=== PATIENT | female | born 1970 | race Caucasian/White ===

== ENCOUNTER → 2019-04-14 15:15 | Outpatient (CLI) | payer BC, SELFPAY ==
[2015-02-18 13:51] VITALS: BMI 28.8
[2019-04-14 17:11] LABS: Absolute Lymphocyte Count 3.08 X10^3/uL (0.83-4.51); Absolute Neutrophil Count 6.5 X10^3/uL (2.0-7.7); Basophil# 0.12 X10^3/uL; Basophil% 1.1 % (0-1); Eosinophil# 0.18 X10^3/uL; Eosinophils% 1.7 % (0-5); Hematocrit 42.5 % (37-47); Hemoglobin 13.5 g/dL (12.0-15.0); Lymphocyte # 3.08 X10^3/ul (4.0); Lymphocyte % 28.8 % (19-41); Mean Corp Hgb Conc 31.8 g/dL (32-36); Mean Corpuscular Hgb 29.3 pg (27.0-32.0); Mean Corpuscular Volume 92.2 fL (81-99); Monocyte# 0.75 X10^3/uL; NRBC Flagged by Analyzer 0 % (0-5); Neutrophil # 6.52 X10^3/uL (2.7-7.7); Neutrophil % 60.8 % (47-70); Platelet Count 362 K/mm3 (150-450); RBC Distribution Width CV 14.2 % (11.6-14.6); RBC Distribution Width SD 47.9 fl (35.1-43.9); Red Blood Count 4.61 M/mm3 (4.2-5.4); White Blood Count 10.7 K/mm3 (4.4-11.0)
[2019-04-14 17:14] LABS: AST(SGOT) 12 U/L (15-37); Alanine Aminotransfer ALT/SGPT 16 U/L (13-56); Albumin, Serum 3.4 g/dL (3.2-5.0); Alkaline Phosphatase 82 U/L (45-117); Anion Gap 6 (5-15); BUN 12 mg/dL (7-18); BUN/Creat Ratio 19.3 RATIO (10-20); Calcium,Total 8.9 mg/dL (8.5-10.1); Chloride 107 mmol/L (98-107); Creatinine, Serum 0.62 mg/dL (0.55-1.02); EST Glomerular Filtration Rate 108 mL/min (>60); Est Glom Filt Rate - Afr Amer 131 mL/min (>60); Globulin 3.4 g/dL (2.2-4.2); Glucose 150 mg/dL (74-106); Potassium 3.9 mmol/L (3.5-5.1); Protein, Total 6.8 g/dL (6.4-8.2); Sodium Level 137 mmol/L (136-145); Thyroid Stim Hormone (TSH) 1.68 uIU/mL (0.358-3.74)
== END ==
PROVIDERS: Visit Provider Family Medicine Geriatric Medicine
DX: R53.83 Other fatigue (principal)
CPT/HCPCS: 36415; 80053; 84443; 85025

== ENCOUNTER → 2019-04-15 00:53 | Outpatient (CLI) | payer BC, SELFPAY ==
--- NOTE | 2019-04-15 01:03 | RAD_ITS ---
STUDY: X-RAY - PELVIS AND RIGHT HIP REASON FOR EXAM: Female, 48 years old. Right hip pain TECHNIQUE AP and frog-leg lateral views of the right hip with AP view pelvis. COMPARISON: None. FINDINGS: There is a normal visualized bowel gas pattern. Normal visualized soft tissue structures. Normal bilateral iliac wings, sacroiliac joints and visualized sacrum. Normal bilateral superior and inferior pubic rami. Normal pubic symphysis. Normal bilateral ischial tuberosities. Right hip is in normal alignment without significant degenerative change. There is an obliquely oriented linear lucency through the intratrochanteric region of the right femur which most likely represents an underlying soft tissue shadow, though a nondisplaced fracture could also be considered. The left hip is in normal alignment without significant degenerative change. No left femoral fracture. RAD/HIP, UNI W/ Pelvis 2-3 Views IMPRESSION: Oblique linear lucency through the intertrochanteric region of the right femur, either representing underlying soft tissue shadow versus nondisplaced fracture. CT imaging of the right hip could be obtained for more definitive characterization. Electronically Signed: Jese Ibarra MD at 4:01 EST Tel , Service support ,
--- NOTE | 2019-04-15 01:03 | RAD_ITS ---
STUDY: X-RAY - LUMBAR SPINE REASON FOR EXAM: Female, 48 years old. Right hip pain and sciatica TECHNIQUE: 3 view(s) of the lumbar spine were obtained. COMPARISON: None FINDINGS: Mildly exaggerated lordosis of the lumbar spine. No focal listhesis. Minimal levoscoliosis centered at L3. No vertebral body fracture. No pars defect. Intervertebral disc spaces are preserved. Minimal degenerative change of the facet joints at L4-L5 and L5-S1. No paraspinal soft tissue densities. RAD/Lumbar Spine 2 or 3 Views IMPRESSION: 1. No acute abnormality of the lumbar spine 2. Mild degenerative facet disease at L4-5 and L5-S1. Electronically Signed: Jese Ibarra MD at 2:11 EST Tel , Service support ,
== END ==
LOC: RAD 00:57
PROVIDERS: Family Provider Family Medicine Geriatric Medicine; PCP Family Medicine Geriatric Medicine; Visit Provider Family Medicine Geriatric Medicine
DX: M54.30 Sciatica, unspecified side (principal)
CPT/HCPCS: 72100; 73502

== ENCOUNTER → 2019-05-10 14:02 | Outpatient (CLI) | payer BC, SELFPAY ==
[2015-02-18 13:51] VITALS: BMI 28.8
--- NOTE | 2019-05-10 14:04 | CT_ITS ---
STUDY: CT RIGHT FEMUR/HIP WITHOUT CONTRAST REASON FOR EXAM: Female, 48 years old. Pain, trauma. Evaluate for fracture. RADIATION DOSAGE (If Supplied By Facility): CTDIvol = ( 18.57 ) mGy, DLP = ( 845.99 ) mGycm TECHNIQUE: Transaxial CT imaging of the femur was performed. Sagittal and coronal images were reconstructed. Individualized dose optimization techniques were used for this CT. COMPARISON: None. FINDINGS: Normal visualized proximal femur including femoral head. Mild narrowing of the posterior joint compartment consistent with mild degenerative disease.. Normal right superior and inferior pubic rami. Minimal degenerative disease at the pubic symphysis. Surrounding soft tissues are normal. CT/Extremity Lower without Contra IMPRESSION: Minimal degenerative disease at the posterior right hip otherwise no acute fracture or subluxation seen. Electronically Signed: Trista Nguyễn MD at 23:56 EST , Service support ,
== END ==
PROVIDERS: Family Provider Family Medicine Geriatric Medicine; PCP Family Medicine Geriatric Medicine; Referring Provider Family Medicine Geriatric Medicine; Visit Provider Family Medicine Geriatric Medicine
DX: S72.04 Fracture of base of neck of femur (principal)
CPT/HCPCS: 73700

== ENCOUNTER → 2019-05-11 06:34 | Outpatient (CLI) | payer BC, SELFPAY ==
--- NOTE | 2019-05-11 06:41 | MRI_ITS ---
STUDY: MRI LUMBAR SPINE WITHOUT CONTRAST REASON FOR EXAM: Female, 48 years old. Arthropathy. Low back pain. Right leg pain. TECHNIQUE: Standardized fat and water weighted pulse sequences were obtained in the sagittal and axial planes. COMPARISON: X-ray dated April 15, 2019. FINDINGS: Exaggerated lumbar lordosis. Minimal levoscoliosis. Conus medullaris terminates normally at the L1 level. No acute fracture. No dislocation. No bone destruction. Normal paraspinal muscles. Normal retroperitoneum. Normal aorta. Sacrum intact. T12-L1: Normal endplates. Normal disc height, hydration and morphology. Normal bilateral facet joints. Normal central canal and bilateral lateral recesses. Normal bilateral intervertebral neural foramina. L1-2: Normal endplates. Normal disc height, hydration and morphology. Normal bilateral facet joints. Normal central canal and bilateral lateral recesses. Normal bilateral intervertebral neural foramina. L2-3: Normal endplates. Normal disc height, hydration and morphology. Normal bilateral facet joints. Normal central canal and bilateral lateral recesses. Normal bilateral intervertebral neural foramina. L3-4: Normal endplates. Normal disc height, hydration and morphology. Mild facet arthrosis. Normal central canal and bilateral lateral recesses. Normal bilateral intervertebral neural foramina. L4-5: Normal endplates. Normal disc height, hydration and morphology. Mild facet arthrosis. Normal central canal and bilateral lateral recesses. Normal bilateral intervertebral neural foramina. L5-S1: Normal endplates. Normal disc height, hydration and morphology. Mild facet arthrosis. Normal central canal and bilateral lateral recesses. Normal bilateral intervertebral neural foramina. MRI/Spine Lumbar (Routine) IMPRESSION: No disc herniation or central canal narrowing No significant neural foraminal or lateral recess narrowing Mild facet joint arthrosis with exaggerated lordosis Electronically Signed: Yousuf Johnston DO at 9:34 EST Tel , Service support ,
== END ==
PROVIDERS: Family Provider Family Medicine Geriatric Medicine; PCP Family Medicine Geriatric Medicine; Referring Provider Family Medicine Geriatric Medicine; Visit Provider Family Medicine Geriatric Medicine
DX: M12.88 Other specific arthropathies, not elsewhere classified, other specified site (principal)
CPT/HCPCS: 72148

== ENCOUNTER → 2019-08-26 14:30 | Outpatient (CLI) | payer BC, SELFPAY ==
[2015-02-18 13:51] VITALS: BMI 28.8
[2019-08-26 16:03] LABS: Absolute Lymphocyte Count 3.96 X10^3/uL (0.83-4.51); Absolute Neutrophil Count 11.9 X10^3/uL (2.0-7.7); Basophil# 0.12 X10^3/uL; Basophil% 0.7 % (0-1); Eosinophil# 0.06 X10^3/uL; Eosinophils% 0.3 % (0-5); Hematocrit 43.1 % (37-47); Hemoglobin 14.3 g/dL (12.0-15.0); Lymphocyte # 3.96 X10^3/ul (4.0); Lymphocyte % 22.9 % (19-41); Mean Corp Hgb Conc 33.2 g/dL (32-36); Mean Corpuscular Hgb 30.4 pg (27.0-32.0); Mean Corpuscular Volume 91.7 fL (81-99); Mean Platelet Vol. 10.5 fl (6.2-12.0); Monocyte# 1.08 X10^3/uL; Monocyte% 6.2 % (0-10); NRBC Flagged by Analyzer 0 % (0-5); Neutrophil % 68.7 % (47-70); Platelet Count 317 K/mm3 (150-450); RBC Distribution Width CV 13.5 % (11.6-14.6); White Blood Count 17.3 K/mm3 (4.4-11.0)
[2019-08-26 16:38] LABS: AST(SGOT) 8 U/L (15-37); Alanine Aminotransfer ALT/SGPT 17 U/L (13-56); Albumin, Serum 3.6 g/dL (3.2-5.0); Alkaline Phosphatase 91 U/L (45-117); Anion Gap 7 (5-15); BUN 18 mg/dL (7-18); BUN/Creat Ratio 20.1 RATIO (10-20); Calcium,Total 9.4 mg/dL (8.5-10.1); Chloride 101 mmol/L (98-107); EST Glomerular Filtration Rate 71 mL/min (>60); Est Glom Filt Rate - Afr Amer 86 mL/min (>60); Globulin 3.5 g/dL (2.2-4.2); Glucose 414 mg/dL (74-106); Potassium 4.2 mmol/L (3.5-5.1); Protein, Total 7.1 g/dL (6.4-8.2); Sodium Level 134 mmol/L (136-145); Thyroid Stim Hormone (TSH) 0.88 uIU/mL (0.358-3.74)
== END ==
PROVIDERS: PCP Family Medicine Geriatric Medicine; Visit Provider Family Medicine Geriatric Medicine
DX: E11.65 Type 2 diabetes mellitus with hyperglycemia (principal); R53.83 Other fatigue
CPT/HCPCS: 36415; 80053; 84443; 85025

== ENCOUNTER → 2019-08-31 10:00 | Outpatient (CLI) | payer BC, SELFPAY ==
[2015-02-18 13:51] VITALS: BMI 28.8
--- NOTE | 2019-08-31 10:04 | ART_ITS ---
Reason For Study: PAOD Procedure A bilateral upper extremity continuous wave Doppler with analog waveform analysis and wrist brachial indexes. Left Segmental Pressures Left brachial= 131mmHg. Left ulnar= 153mmHg. Left radial= 155mmHg. The left radial waveforms are triphasic. The left ulnar waveforms are triphasic. Right Segmental Pressures Right brachial= 133mmHg. Right ulnar= 138mmHg. Right radial= 148mmHg. The right radial waveforms are triphasic. The right ulnar waveforms are triphasic. Indices The right wrist-brachial index by the radial artery is 1.11. The right wrist-brachial index by the ulnar artery is 1.04. The left wrist-brachial index by the radial artery is 1.17. The left wrist- brachial index by the ulnar artery is 1.15. Interpretation Summary Triphasic Doppler waveforms are noted at wrist level bilaterally. Wrist-brachial indices are normal bilaterally. There is no evidence of arterial occlusive disease in the upper extremities bilaterally. Ordering Physician: Shashank Tai Referring Physician: Shashank Tai Chi Performed By: Nicolle Willams RVT
--- NOTE | 2019-08-31 10:04 | ART_ITS ---
Reason For Study: PAOD Procedure A bilateral lower extremity continuous wave Doppler with analog waveform analysis and ankle brachial indexes. Left Segmental Pressures Left brachial= 132mmHg. Left posterior tibial artery = 109mmHg. Left dorsalis pedis artery = 99mmHg. The left dorsalis pedis waveforms are biphasic. The left posterior tibial artery waveforms are biphasic. Right Segmental Pressures Right brachial= 132mmHg. Right posterior tibial artery = 108mmHg. Right dorsalis pedis artery = 112mmHg. The right dorsalis pedis waveforms are biphasic. The right posterior tibial artery waveforms are biphasic. Indices The right ankle brachial index by the dorsalis pedis is 0.85. The right ankle brachial index by the posterior tibial artery is 0.82. The left ankle brachial index by the dorsalis pedis is 0.75. The left ankle brachial index by the posterior tibial artery is 0.83. Interpretation Summary Biphasic Doppler waveforms are noted at ankle level bilaterally. Resting ankle-brachial indices are mildly diminished bilaterally. There is evidence of mild arterial occlusive disease in the lower extremities bilaterally. Ordering Physician: Shashank Tai Referring Physician: Shashank Tai Chi Performed By: Nicolle Willams RVT
== END ==
PROVIDERS: PCP Family Medicine Geriatric Medicine; Referring Provider Family Medicine Geriatric Medicine; Visit Provider Family Medicine Geriatric Medicine
DX: I73.9 Peripheral vascular disease, unspecified (principal)
CPT/HCPCS: 93922

== ENCOUNTER 2019-09-03 13:00 | Outpatient (RCR) | payer BC, SELFPAY ==
--- NOTE | 2019-08-06 12:22 | HP.PTEVAL ---
Patient's Visit Information ROGERIO KIRKLAND is a 49 year old F referred to Physical Therapy by Siddharth Pena MD with a diagnosis of LUMBAR SPONDYLOSIS, SACROILITIS, AND MYALGIA. Date of Evaluation: 08/06/19 Physical Therapist: Jovana Mckinney PT, Cert MDT - Visit Plan Frequency: 2-3x /Week Duration: 4-6 Weeks Plan: AQUATIC THERAPY FOR PAIN RELIEF, POSTURE CORRECTION/STRENGTHENING, INSTRUCTION IN APPROPRIATE BODY MECHANICS AND ACTIVITY MODIFICATIONS. DLS STARTING WITH A NEUTRAL SPINE PROGRESSING ROM TOLERATED. LIZ LE ROM, STRETCHING AND STRENGTHENING. HEP INSTRUCTION. - Subjective Findings: Work/Leisure: [employer] WORK FOR [employer]. 3 YEARS. NOT CURRENTLY OFF WORK FOR THIS. Disability: NO. Present symptoms: LIZ LOW BACK AND HIP PAIN. RECENT HISTORY FROM A FEW MONTHS AGO OF SHOOTING PAINS DOWN BOTH LEGS TO CALF. Present since: MAR 2019. Pain Scale: WORST 8/10, LEAST 3/10. Currently: 7/10. Commenced as a result of: NO APPARENT REASON. Symptoms at onset: RIGHT HIP PAIN AND SHOOTING PAIN DOWN LEG. Worse: WALKING, SITTING, LYING DOWN, LIFTING, RUNNING SWEEPER, STANDING TO DO DISHES, COOKING...ANYTHING TO DO WITH STANDING. GETTING IN SHOWER. Better: PAIN MEDICINE, ICY HOT PADS, SLOWING DOWN. Disturbed sleep: YES. Previous history/Previous treatment: H/O HIP PROBLEMS A CHILD. H/O LEG MOBILITY PROBLEMS IN CHILDHOOD. BACK AND LEGS HAVE BEEN FINE IN ADULTHOOD PER PATIENT REPORT BUT HAS BEEN GOING TO A CHIROPRACTOR SINCE CHILDHOOD. Treatment this episode: CHIROPRACTOR, PAIN MGMT - HIP AND BACK INJECTIONS, PRESCRIPTION MEDICATIONS. NO BACK OR HIP SX. PATIENT REPORTS THE INJECTIONS HAVE HELPED SOME. Coughing/sneezing/straining: POSITIVE. Gait: LIMPING ON RIGHT LE. TIME AND DISTANCE LIMITED. NO AD'S. Difficulty initiating urinatin: NO. Accidents: NO. Unexplained weight loss: YES - [employer] IS AWARE OF 22 LB WEIGHT LOSS SINCE MAY. Imaging: LUMBAR AND HIP X-RAYS, CAT SCAN AND MRI PER PATIENT REPORT SHOWING ARTHRITIS IN BACK AND HIPS. STATES DR. CHÁVEZ SAID THE X-RAY SHOWED A RIGHT HIP FX BUT NOT ON CAT SCAN OR MRI. [facility] EMR: Mild degenerative facet disease at L4-5 and L5-S1. Minimal degenerative disease at the posterior right hip otherwise no acute. fracture or subluxation seen. No disc herniation or central canal narrowing. No significant neural foraminal or lateral recess narrowing. Mild facet joint arthrosis with exaggerated lordosis. PMH: NIDDM, ANXIETY, DEPRESSION, H/O NECK PROBLEMS. Recent major surgery: 1993 - 06/03 OF KIDNEY REMOVED FOR INFECTION. OTHER: 08/20/[address] MORE [address]JECTIONS PENDING [address] PENA BUT PATIENT DOES NOT THINK ANY OF THE INJECTIONS HAVE BEEN TANJA'S. - Objective Sitting/Standing Posture: POOR. SCOLIOSIS. Active Correction of posture: WORSE. Other Observations: INDEP SLOW ANTALGIC TYPE GAIT INTO PT WITHOUT ANY AD'S OR LOB. PATIENT IS UNABLE TO TRANSFER FROM SIT TO STAND WITHOUT UE ASSIST. Motor deficit: LIZ LE'S 5/5 WITH MMT'ING EXCEPT RIGHT HIP 4-/5 AND LEFT 4/5. I PROCEEDED CAREFULLY WITH TESTING DUE TO PATIENT BEING APPREHENSIVE. Sensory deficit: LIZ LE LIGHT TOUCH SENSATION INTACT AND SYMMETRICAL WITH TESTING. ROM deficit: LIZ LE'S WFL. Reflexes: 2/3 LIZ LE'S. Dural Signs: POSITIVE LIZ LE'S. Lumbar mvmt loss: flex - MOD. ext - ANTON. R SG - ANTON. L SG - MOD. PATIENT C/O INCREASED BURNING PAIN IN LOW BACK WITH LUMBAR ROM TESTING ALL PLANES. Core strength: POOR. Palpation: PATIENT IS VERY TENDER WITH LIGHT PALPATION OF THE LOWER THORACIC, LUMBAR, SACRAL AND RIGHT HIP REGIONS. TREATMENT: NEUROMUSCULAR REEDUCATION - RETRAINING OF MVMT AND POSTURE FOR SITTING, LYING AND STANDING ACTIVITIES. - Goals Goal 1:: DECREASE C/O LOW BACK AND LIZ LE SX'S. Goal Time Frame: 4-6 Weeks Goal 2:: IMPROVE PERSONAL CARE, LIFITNG, WALKING, SITTING, STANDING, SLEEP, SOCIAL LIFE, TRAVEL, WORK AND HOMEMAKING FUNCTION. Goal Time Frame: 4-6 Weeks Goal 3:: INSTRUCT IN PROPHYLAXIS Goal Time Frame: 4-6 Weeks - Rehabilitation Potential Rehabilitation Potential: Fair - Anticipated Interventions Patient/Client Instruction: Educate patient on: Condition, Plan of Care, Risk Factors, Benefits of Fitness Program For the Purpose of:: To improve self management Therapeutic Exercise to Include: Strength training, Endurance training, Body mechanics, Postural training, Flexibilty training, Neuromotor development, Dynamic Lumbar Stabilization For the Purpose of:: To decrease pain, To improve muscle performance and motor function, To increase tolerance to activity/condition/position, To improve ability of physical actions for home/community/work/leisure TENS: Yes IF ES: Yes Cryotherapy (ice pack, ice massage): Yes Thermo therapy (hot pack): Yes Ultrasound (thermal/non thermal): Yes For the Purpose of:: To decrease pain, To decrease swelling/inflammation, To increase ROM, To improve nutrient delivery to tissue Thank you for the opportunity to evaluate your patient. For Medicare and Medicare HMO plans, please review the plan of care and approve it. It will need to be FAXED BACK to us at [phone] for Medicare purposes. For Medicare only, by signing this I certify the plan of care. Please let me know if there are questions or concerns regarding this plan of care. Physician Signature: Date:
--- NOTE | 2020-02-24 15:16 | HP.PT.NRP ---
ROGERIO KIRKLAND was seen in my office for initial evaluation on 08/06/19. The following Plan of Care was established for this patient: Initial Frequency: 2-3x /Week Initial Duration: 4-6 Weeks Patient/Client Instruction: Educate patient on: Condition, Plan of Care, Risk Factors, Benefits of Fitness Program For the Purpose of:: To improve self management Therapeutic Exercise to Include: Strength training, Endurance training, Body mechanics, Postural training, Flexibilty training, Neuromotor development, Dynamic Lumbar Stabilization For the Purpose of:: To decrease pain, To improve muscle performance and motor function, To increase tolerance to activity/condition/position, To improve ability of physical actions for home/community/work/leisure TENS: Yes IF ES: Yes Cryotherapy (ice pack, ice massage): Yes Thermo therapy (hot pack): Yes Ultrasound (thermal/non thermal): Yes For the Purpose of:: To decrease pain, To decrease swelling/inflammation, To increase ROM, To improve nutrient delivery to tissue This patient was last seen in our office . Pertinent comments regarding their Physical therapy will appear below: This patient has not returned to Physical Therapy and is appropriate to return to MD for further follow-up as needed. At this point I will be discontinuing this patient from physical therapy. I would be happy to see this patient again in the future if found appropriate by the physician. Thank you! Jovana Mckinney PT, Cert MDT
== END 2019-09-03 19:00 | disposition home or self-care (01) ==
LOC: PT 13:00
PROVIDERS: PCP Family Medicine Geriatric Medicine; Referring Provider Anesthesiology; Visit Provider Anesthesiology
DX: M47.816 Spondylosis without myelopathy or radiculopathy, lumbar region (principal); M46.1 Sacroiliitis, not elsewhere classified; M79.10 Myalgia, unspecified site
CPT/HCPCS: 97112; 97113; 97162

== ENCOUNTER → 2019-09-06 14:11 | Outpatient (CLI) | payer BC, SELFPAY ==
--- NOTE | 2019-09-06 14:14 | RAD_ITS ---
STUDY: X-RAY - ABDOMEN/PELVIS REASON FOR EXAM: Female, 49 years old. Diarrhea x several days TECHNIQUE: AP supine and upright views of the abdomen and pelvis. COMPARISON: None. FINDINGS: Normal visualized lung bases. There is an unremarkable bowel gas pattern. There is no demonstrated free abdominal air. There is evidence of prior cholecystectomy. Normal soft tissue structures. Normal visualized osseous structures. RAD/Abd Inc Decub and/or Erect IMPRESSION: Normal x-ray examination of the abdomen and pelvis. Electronically Signed: Bandar Garcia, at 16:07 EDT , Service support ,
== END ==
PROVIDERS: PCP Family Medicine Geriatric Medicine; Referring Provider Family Medicine Geriatric Medicine; Visit Provider Family Medicine Geriatric Medicine
DX: R19.7 Diarrhea, unspecified (principal)
CPT/HCPCS: 74019

== ENCOUNTER → 2019-11-19 11:04 | Outpatient (CLI) | payer BC, SELFPAY ==
[2015-02-18 13:51] VITALS: BMI 28.8
[2019-11-19 12:22] LABS: Absolute Lymphocyte Count 3.49 X10^3/uL (0.83-4.51); Absolute Neutrophil Count 6.3 X10^3/uL (2.0-7.7); Basophil# 0.08 X10^3/uL; Basophil% 0.7 % (0-1); Eosinophil# 0.09 X10^3/uL; Eosinophils% 0.8 % (0-5); Hematocrit 45.2 % (37-47); Lymphocyte # 3.49 X10^3/ul (4.0); Lymphocyte % 32.2 % (19-41); Mean Corp Hgb Conc 33.2 g/dL (32-36); Mean Corpuscular Hgb 31.3 pg (27.0-32.0); Mean Corpuscular Volume 94.4 fL (81-99); Monocyte# 0.81 X10^3/uL; Monocyte% 7.5 % (0-10); NRBC Flagged by Analyzer 0 % (0-5); Neutrophil # 6.28 X10^3/uL (2.7-7.7); Neutrophil % 58.1 % (47-70); Platelet Count 374 K/mm3 (150-450); RBC Distribution Width CV 13.2 % (11.6-14.6); RBC Distribution Width SD 45.5 fl (35.1-43.9); Red Blood Count 4.79 M/mm3 (4.2-5.4); White Blood Count 10.8 K/mm3 (4.4-11.0)
[2019-11-19 13:26] LABS: AST(SGOT) 7 U/L (15-37); Alanine Aminotransfer ALT/SGPT 20 U/L (13-56); Albumin, Serum 3.5 g/dL (3.2-5.0); Alkaline Phosphatase 82 U/L (45-117); Anion Gap 7 (5-15); BUN 15 mg/dL (7-18); BUN/Creat Ratio 20.4 RATIO (10-20); Calcium,Total 9.7 mg/dL (8.5-10.1); Chloride 97 mmol/L (98-107); Creatinine, Serum 0.74 mg/dL (0.55-1.02); EST Glomerular Filtration Rate 89 mL/min (>60); Est Glom Filt Rate - Afr Amer 108 mL/min (>60); Globulin 3.6 g/dL (2.2-4.2); Glucose 321 mg/dL (74-106); Potassium 3.8 mmol/L (3.5-5.1); Protein, Total 7.1 g/dL (6.4-8.2); Sodium Level 133 mmol/L (136-145); Thyroid Stim Hormone (TSH) 1.14 uIU/mL (0.358-3.74)
== END ==
PROVIDERS: PCP Family Medicine Geriatric Medicine; Visit Provider Family Medicine Geriatric Medicine
DX: E11.65 Type 2 diabetes mellitus with hyperglycemia (principal); R53.83 Other fatigue
CPT/HCPCS: 36415; 80053; 84443; 85025

== ENCOUNTER → 2019-11-23 11:41 | Outpatient (CLI) | payer BC, SELFPAY ==
[2015-02-18 13:51] VITALS: BMI 28.8
--- NOTE | 2019-11-23 12:20 | RAD_ITS ---
STUDY: X-RAY - ABDOMEN/PELVIS REASON FOR EXAM: Female, 49 years old. DIARRHEA, PARTIAL LEFT NEPHRECTOMY TECHNIQUE: 3 AP views COMPARISON: 09/06/2019 FINDINGS: Normal visualized lung bases. Evidence of previous cholecystectomy There is an unremarkable bowel gas pattern. There is no demonstrated free abdominal air. The visualized liver, spleen and kidneys are grossly normal in size and morphology. Normal soft tissue structures. Normal visualized osseous structures. RAD/Abd Inc Decub and/or Erect IMPRESSION: Normal x-ray examination of the abdomen and pelvis. Electronically Signed: Parminder Esquivel MD at 12:37 EDT , Service support ,
[2019-11-23 12:33] LABS: Basophil# 0.08 X10^3/uL; Basophil% 0.7 % (0-1); Eosinophil# 0.09 X10^3/uL; Eosinophils% 0.8 % (0-5); Mean Corp Hgb Conc 32.6 g/dL (32-36); Mean Corpuscular Volume 95.3 fL (81-99); Mean Platelet Vol. 9.9 fl (6.2-12.0); Monocyte# 1.12 X10^3/uL; Monocyte% 9.3 % (0-10); NRBC Flagged by Analyzer 0 % (0-5); Neutrophil # 7.04 X10^3/uL (2.7-7.7); Neutrophil % 58.7 % (47-70); Platelet Count 333 K/mm3 (150-450); RBC Distribution Width SD 45.4 fl (35.1-43.9); Red Blood Count 4.51 M/mm3 (4.2-5.4)
[2019-11-23 12:50] LABS: Anion Gap 6 (5-15); BUN 12 mg/dL (7-18); BUN/Creat Ratio 18.4 RATIO (10-20); Calcium,Total 8.6 mg/dL (8.5-10.1); Chloride 101 mmol/L (98-107); Creatinine, Serum 0.65 mg/dL (0.55-1.02); EST Glomerular Filtration Rate 103 mL/min (>60); Est Glom Filt Rate - Afr Amer 124 mL/min (>60); Glucose 211 mg/dL (74-106); Potassium 3.7 mmol/L (3.5-5.1); Sodium Level 136 mmol/L (136-145)
== END ==
PROVIDERS: PCP Family Medicine Geriatric Medicine; Referring Provider Family Medicine Geriatric Medicine; Visit Provider Family Medicine Geriatric Medicine
DX: N39.0 Urinary tract infection, site not specified (principal); R11.2 Nausea with vomiting, unspecified
CPT/HCPCS: 36415; 74019; 80048; 85025; 87086; 87088; 87186

== ENCOUNTER 2019-11-26 19:19 | Observation (INO) | payer BC, SELFPAY ==
[2019-11-26] VITALS (14 sets, daily range): BP systolic 129–171; BP diastolic 59–93; PULSE 62–90; RESP 14–20; TEMP 36.7–36.9; O2SAT 94–99; BMI 26.7; BMI 26.0; BMI 25.3; BMI 25.4
--- NOTE | 2019-11-26 19:27 | EKG12_ITS ---
Test Reason : STROKE Blood Pressure : / mmHG Vent. Rate : 069 BPM Atrial Rate : 069 BPM P-R Int : 178 ms QRS Dur : 076 ms QT Int : 428 ms P-R-T Axes : 017 -10 026 degrees QTc Int : 458 ms Normal sinus rhythm Normal ECG Confirmed by SAUL CRUZ, SONIA ([id number]), editor producer TIFFANY ROMEO ([id number]) on 11/30/2019 10:53:45 AM Referred By: ED PHYSICIAN Confirmed By:SONIA HUGHES MD
--- NOTE | 2019-11-26 19:28 | CT_ITS ---
STUDY: CTA HEAD AND NECK WITH CONTRAST REASON FOR EXAM: Female, 49 years old. STROKE RADIATION DOSAGE (If Supplied By Facility): CTDIvol = ( 27.73 ) mGy, DLP = ( 1370.53 ) mGycm TECHNIQUE: CT angiography was performed with a multi-detector CT scanner. Data acquisition was obtained from the skull base through the vertex following intravenous administration of IV 100 ML ISOVUE 370. MIP images were reconstructed from the axial data set. Post-processing of the angiographic images was performed, with multiplanar reformation and 3D reconstruction. Individualized dose optimization techniques were used for this CT. COMPARISON: Head CT dated November 26, 2019. MRI of the brain dated April 12, 2014 FINDINGS: Normal bilateral petrous carotid arteries. Normal right cavernous carotid artery with a normal supraclinoid bifurcation. Normal left cavernous carotid artery with a normal supraclinoid bifurcation. Normal right A1 segments of the anterior cerebral artery. Normal left A1 segments of the anterior cerebral artery. There is non-visualization of the anterior communicating artery (ACOM). Normal bilateral A2 segments of the anterior cerebral arteries. Normal right M1 and M2 segments of the middle cerebral arteries, with a normal M1 bifurcation. Normal left M1 and M2 segments of the middle cerebral arteries, with a normal M1 bifurcation. Normal right posterior communicating artery (PCOM). Normal left posterior communicating artery (PCOM). Normal bilateral vertebral arteries. Normal basilar artery with a normal basilar bifurcation. The visualized bilateral superior cerebellar (SCA) arteries are normal. Normal bilateral P1, P2 and visualized P3 segments of the posterior cerebral arteries. There is no demonstrated aneurysm of the [place] of [place]. There is no demonstrated abnormality of the visualized brain. AORTIC ARCH: Normal visualized aortic arch. Normal origins of the brachiocephalic, left common carotid, and left subclavian arteries. RIGHT CAROTID ARTERIES: Normal right common carotid artery (CCA). Normal right common carotid bulb. Normal origin of the right internal carotid (ICA) artery without a hemodynamically significant stenosis. Normal visualized cervical portion of the right internal carotid artery. Normal origin of the right external carotid artery (ECA). LEFT CAROTID ARTERIES: Normal left common carotid artery (CCA). Normal left common carotid bulb. Normal origin of the left internal carotid (ICA) artery without a hemodynamically significant stenosis. Normal visualized cervical portion of the left internal carotid artery. Normal origin of the left external carotid artery (ECA). VERTEBRAL ARTERIES: Normal bilateral vertebral arteries. CT/CTA Head AND Neck W/ Contrast IMPRESSION: Normal CTA Head and neck with contrast. N.B. : The above information has been verbally conveyed by Rico Loving MD to Todd Sage on 11/26/2019 20:04:27 (ET). Electronically Signed: iRco Loving MD at 20:07 EDT , Service support ,
[2019-11-26 19:41] LABS: Absolute Lymphocyte Count 3.91 X10^3/uL (0.83-4.51); Absolute Neutrophil Count 6.5 X10^3/uL (2.0-7.7); Basophil# 0.09 X10^3/uL; Basophil% 0.8 % (0-1); Eosinophil# 0.07 X10^3/uL; Eosinophils% 0.6 % (0-5); Hematocrit 46.1 % (37-47); Hemoglobin 15.3 g/dL (12.0-15.0); Lymphocyte # 3.91 X10^3/ul (4.0); Lymphocyte % 34.2 % (19-41); Mean Corp Hgb Conc 33.2 g/dL (32-36); Mean Corpuscular Hgb 31.2 pg (27.0-32.0); Mean Corpuscular Volume 93.9 fL (81-99); Mean Platelet Vol. 10.1 fl (6.2-12.0); Monocyte# 0.85 X10^3/uL; Monocyte% 7.4 % (0-10); NRBC Flagged by Analyzer 0 % (0-5); Neutrophil # 6.45 X10^3/uL (2.7-7.7); Neutrophil % 56.5 % (47-70); Platelet Count 342 K/mm3 (150-450); RBC Distribution Width CV 13.1 % (11.6-14.6); RBC Distribution Width SD 44.9 fl (35.1-43.9); Red Blood Count 4.91 M/mm3 (4.2-5.4); White Blood Count 11.4 K/mm3 (4.4-11.0)
--- NOTE | 2019-11-26 19:41 | ED.RN ---
[address] scan at this time. both ct machines full with critical patients at this time. 1929 [facility] called 193 report given to odessa PINON
--- NOTE | 2019-11-26 19:45 | RAD_ITS ---
STUDY: X-RAY CHEST REASON FOR EXAM: Female, 49 years old. onset of headache, blurred vision, facial tingling, difficulty breathing. TECHNIQUE: Single AP portable view of the chest. COMPARISON: None. FINDINGS: The lungs are clear and expanded. There is no demonstrated pleural abnormality. Normal size heart. Normal mediastinum and chaparro. Normal visualized pulmonary arteries. There is atherosclerotic calcification of the aortic arch with tortuosity. Normal visualized thoracic spine. Normal visualized ribs, clavicles, and shoulders. There is no demonstrated abnormality of the visualized soft tissue structures of the upper abdomen. RAD/Chest 1 View IMPRESSION: Normal x-ray examination of the chest. Electronically Signed: Rico Loving MD at 20:48 EDT , Service support ,
[2019-11-26 19:52] LABS: Partial Thromboplast Time 26.6 Seconds (24.1-36.2); Prothrombin Time (Protime)PT. 12.4 SECONDS (11.7-14.9)
[2019-11-26 19:57] LABS: Anion Gap 8 (5-15); BUN 11 mg/dL (7-18); BUN/Creat Ratio 17.1 RATIO (10-20); Calcium,Total 10.1 mg/dL (8.5-10.1); Chloride 103 mmol/L (98-107); Creatinine, Serum 0.64 mg/dL (0.55-1.02); EST Glomerular Filtration Rate 104 mL/min (>60); Est Glom Filt Rate - Afr Amer 126 mL/min (>60); Glucose 144 mg/dL (74-106); Potassium 3.6 mmol/L (3.5-5.1); Sodium Level 139 mmol/L (136-145)
--- NOTE | 2019-11-26 20:04 | ED.RN ---
pt returned from CT 1949 and [facility] called, but Robot being used on a 2nd stroke alert currently. Cassie from [facility] states she will call back as soon as Robot and Neurologist available.
--- NOTE | 2019-11-26 20:33 | CM.ED ---
SOCIAL WORK Responded to Stroke Alert. Met with patient and son in room. Introduced role and reason for referral. Patient states was at work when staff noticed patient with blank stare. Patient states they said I told them my co-worker was moving around in circles with her hands in the air. Active listening and support provided. Work up being completed. This worker to remain available for needs. Carly Puentes, [employer], COMPOSITE MECHANIC
--- NOTE | 2019-11-26 21:29 | ED.DCSUM_ITS ---
- ER Visit Summary Date of Service: 11/26/19 Chief Complaint: Possible stroke History of Present Illness: The patient is a 49 F who presents with possible stroke that began today while she was at work. Patient states her symptoms started approximately 90 minutes prior to arrival. Patient states she was at work and she was looking at another person across the room and she felt like that other person was spinning. Patient denies any other spinning sensations. Patient states she felt like the left side of her face was weak and felt different. Patient also admits to some paresthesias in her left arm. Patient denies any weakness. Patient denies any difficulty swallowing or difficulty talking. Patient denies any visual deficits. Physical Examination: Vital signs are stable except for mildly elevated blood pressure of 160/68. Patient is afebrile. Patient is in no acute distress. Pupils are equal, round, and reactive to light bilaterally. Extraocular muscles are intact. There are no visual field deficits noted. Cranial nerves II through XII are intact. There is slight decrease sensation on the left side of her face and left upper extremity. There are no sensory deficits in the lower extremity. Strength is 5/5 bilaterally in the upper and lower extremities. Patient had mild ataxia with [id number] testing but [id number] testing was intact. NIH stroke scale was 2, 1 for the sensory deficit and 1 for the mild ataxia. Heart was regular rate and rhythm. Lungs are clear and equal bilaterally. Abdomen is soft and nontender. Oral mucosa is pink and moist. Oropharynx is clear. Airway is patent. Test Results: EKG showed normal sinus rhythm with a rate of 69. There is no acute ST or T wave changes. CT scan of the brain and CTA of the head and neck were obtained. These were normal. These were interpreted by the radiologist and reviewed by myself. Portable chest x-ray was obtained. There is no acute cardiopulmonary process. This was interpreted by the radiologist and reviewed by myself. CBC showed a slight leukocytosis of 11.4. Basic metabolic profile was within normal limits. PT with INR and PTT were within normal limits. Troponin was normal. Emergency Department Course and Treatment: Patient had very minimal stroke symptoms. Stroke neurologist from [facility] was able to evaluate the patient and does not feel the patient meets criteria for TPA due to the mild symptoms. They recommended admission and further stroke work-up. Patient is agreeable with this. Case was discussed with the hospitalist. Disposition: Admit to hospital Impression: 1. Stroke Critical care time: 30 minutes. This was time spent obtaining history, performing physical examination, discussion with consultants, discussion with paramedics, interpreting test results, and making disposition. This note was generated with [employer] dictation software. It may contain incorrect words, spelling, and punctuation that were not noted in review of the chart prior to signing ED Disposition - Plan for ED Patient: Disposition: Acute Care Hospital [facility] Diagnosis: Stroke Referrals: Shashank Tai Chi, MD [Primary Care Provider] -
--- NOTE | 2019-11-26 21:40 | HP.PCM_ITS ---
Problem List (1) Stroke Status: Acute History of Present Illness Date of Admission: 11/26/19 Chief Complaint: Paresthesia. The patient is a 49 year old F with a significant history of diabetes mellitus; and chronic pain who presents emergency department with paresthesia. Patient had numbness of the left face and left arm. Her symptoms started while at work; about 90 minutes prior to presentation. She had a blank stare. Later on she noticed a girl at a job apparently spinning ([employer]). 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 For that she had blurry vision. At the time of examination she reports resolution of all the above symptoms; except that the numbness on her face had reduced but it had not completely resolved. Her left arm numbness had resolved. Emergency Department doctor reported that on his examination patient had a change in sensation of left face and also difficulty with [id number] test. Her NIH at emergency department was scored as a 2: 1 for paresthesia and, 1 for dysmetria with [id number] test. TPA was not given because of low NIH score. Past Medical History Medical History: Medical History (Last Updated 11/26/19 @ 22:[address] Deven Valera MD) Diabetes mellitus E11.9 Allergies Penicillins [PCN] Allergy (Verified 02/18/15 13:52) Hives Home Medications: Ambulatory Orders Medication Instructions Recorded Escitalopram Oxalate [Lexapro] 20 mg PO DAILY 02/28/14 Metformin [Metformin HCl] 1,000 mg PO BID 02/28/14 Atorvastatin Calcium [Lipitor] 40 mg PO QHS 11/26/19 Celecoxib [Celebrex] 200 mg PO DAILY 11/26/19 Ciprofloxacin [Cipro] 500 mg PO BID 11/26/19 Gabapentin [Neurontin] 100 mg PO TID 11/26/19 Glimepiride [Amaryl] 4 mg PO DAILY 11/26/19 Methocarbamol [Robaxin] 500 mg PO TID 11/26/19 Pioglitazone [Actos] 30 mg PO DAILY 11/26/19 busPIRone [Buspar] 15 mg PO BID 11/26/19 traMADol [Ultram (G)] 50 mg PO Q6H PRN PRN 11/26/19 Surgical History: cholecystectomy, - - Tubal ligation; surgery kidney stone and kidney infection. Smoking Status: Former smoker Alcohol: None - *Family History Maternal History Items: Cancer - Breast, Diabetes, Heart Disease Paternal History Items: Cancer - Breast and colon, Diabetes, Heart Disease Review of Systems Constitutional: Denies: Chills, Fever, Weight Change HEENT: Denies: Head Aches, Sinus Congestion, Sinus Drainage Cardiovascular: Denies: Chest Pain, Palpitations Respiratory: Denies: Cough, Shortness of breath at rest, Sputum production Gastrointestinal: Denies: Abdominal Pain, Nausea, Vomiting Genitourinary: Reports: Frequency. Denies: Dysuria Musculoskeletal: Denies: Joint Pain, Joint Tenderness Skin: Denies: Rash, Wounds Neurological: Reports: Blurred vision, Focal weakness, Numbness. Denies: Tingling Psychiatric: Denies: Anxiety, Depression, Homicidal Ideations, Suicidal Ideations Hematologic/ Lymphatic: Denies: Easy Bruising, Easy Bleeding VTE Information - Inpt Only VTE Present on Admission: No VTE Mechan Device Prophylaxis: SCD's VTE Pharm Prophylaxis ordered?: No Patient Problems: Active and Suspected Problems Stroke (Acute) - Physical Exam Vitals/I&O's: Vital Signs Temp Pulse Resp BP Pulse Ox 98.5 F 85 15 158/87 H 99 11/26/19 19:20 11/26/19 21:00 11/26/19 21:00 11/26/19 21:00 11/26/19 21:00 Oxygen Delivery Method Room Air Weight: 75.523 kg Body Mass Index (BMI) 26.0 Finger Stick Blood Glucose 134 General: Alert, Oriented x3, Cooperative HEENT: Atraumatic, PERRLA, EOMI, Normocephalic Neck: Supple, No JVD, Negative Carotid Bruits Lungs: Clear to auscultation, Normal air movement, No rhonchi, No wheeze, No rales Cardiovascular: Regular rate, Normal S1, Normal S2, No murmurs Abdomen: Bowel Sounds Present, Soft, Non Tender Extremities: No edema, Capillary Refill Less than 3 Seconds Skin: No rashes, No breakdown Musculoskeletal: No Tenderness to Palpation of Joints or Extremities Neurological: Cranial nerves II-XII grossly intact, - - Strength in left upper extremity 3 out of 5. Strength in all extremities 5 out of 5. Sensation changes in left face. Psych/Mental Status: Normal Affect, Appropriate Laboratory Results 11/26/19 19:06: WBC 11.4 H, RBC 4.91, Hgb 15.3 H, Hct 46.1, MCV 93.9, MCH 31.2, MCHC 33.2, RDW Std Deviation 44.9 H, RDW Coeff of Edvin 13.1, Plt Count 342, MPV 10.1, Immature Gran % (Auto) 0.500, Neut % (Auto) 56.5, Lymph % (Auto) 34.2, Dillon % (Auto) 7.4, Eos % (Auto) 0.6, Baso % (Auto) 0.8, Absolute Neuts (auto) 6.5, Absolute Lymphs (auto) 3.91, Nucleated RBC % 0 11/26/19 19:06: PT 12.4, INR 1.0, APTT 26.6 11/26/19 19:06: Sodium 139, Potassium 3.6, Chloride 103, Carbon Dioxide 28.0, Anion Gap 8, BUN 11, Creatinine 0.64, Estim Creat Clear Calc 103.40, Est GFR (MDRD) Af Amer 126, Est GFR (MDRD) Non-Af 104, BUN/Creatinine Ratio 17.1, Glucose 144 H, Calcium 10.1, Troponin I < 0.015 Current Medications Labetalol HCl (Trandate) 20 mg IV X1 PRN PRN Reason: BLOOD PRESSURE Assessment/Plan All Active Problems Stroke (Acute) The patient is a 49 year old F with a significant history of diabetes mellitus; and chronic pain who presents emergency department with paresthesia; left facial droop; blurry vision; vertigo and a weakness of her left arm. Strokelike symptoms Serial NINDS NIH Scale. tPA was not given since patient and NIH was low. CTA head and neck was unremarkable. -Check Hba1c, Lipid level Physical therapy, occupational therapy and speech therapy to work with patient. N.p.o. until bedside swallow eval. Daily aspirin. On home Lipitor 40 mg nightly. Escalate to Lipitor 80 mg nightly. Check CMP in a.m. Permissive hypertension. Control blood pressure with labetalol for systolic blood pressure of more than 220 or diastolic blood pressure of more than 120. 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 The drug screen per neurologist recommendation. Acute UTI. Reportedly patient was started on ciprofloxacin on the same day of presentation. Reportedly he followed up with his PCP because of diabetes. Because of increased urinary frequency without burning urination her PCP ordered a urinary test and thereafter patient was called over the phone and was started on ciprofloxacin. Ciprofloxacin continued. Diabetes mellitus On presentation blood glucose was not within goal Amaryl and Actos continued. Hold metformin since it is too early in her admission. Accu-Chek QA [facility] with correction scale insulin. 1,800 calorie restricted diet ordered. Chronic pain Celebrex continued Neurontin continued Methocarbamol continued PRN tramadol continue Patient sees pain management. Depression/anxiety Lexapro continued Buspirone continued. DVT prophylaxis SCD OBSV E&M: [id number] Initial observation care L3
--- NOTE | 2019-11-26 23:11 | ECHOD_ITS ---
Reason For Study: TIA/CVA Procedure This was a 2D Doppler, Color Flow transthoracic echocardiogram. Contrast injection was performed. Exam performed portable in patient room. Left Ventricle Normal LV size. Left ventricular systolic function is normal. The estimated ejection fraction is 60 %. Diastolic function is indeterminate. No regional wall motion abnormalities noted. Right Ventricle Normal RV size. Normal systolic function. Atria Normal left atrium. Normal right atrium. No doppler evidence for ASD. Bubble contrast study negative for right to left interatrial shunt. Mitral Valve There is no mitral annular calcification. Normal mitral valve. Trivial mitral valve insufficiency. Tricuspid Valve Normal tricuspid valve. Trivial tricuspid valve insufficiency. Aortic Valve Trisinus/trileaflet aortic valve. Normal aortic valve. Pulmonic Valve The pulmonic valve is not well visualized. Great Vessels The aortic root is not well visualized. Pericardium/Pleural No pericardial effusion. Medication Performed a rapid injection of agitated mix of 9 cc saline and 1cc air to assess for atrial septal defect. MMode/2D Measurements & Calculations LVIDd: 4.2 cm IVSd: 1.2 cm LA dimension: 3.4 cm LVIDs: 2.8 cm LVPWd: 0.81 cm RVDd: 2.9 cm FS: 32.4 % LAV(MOD-bp): 41.7 ml LA A4 area: 15.1 cm2 RA A4 area: 11.8 cm2 LAV(MOD-bp) Indexed: 22.5 ml/m2 LAV(MOD-sp2): 41.4 ml LAV(MOD-sp4): 40.9 ml Time Measurements MV dec time: 0.18 sec Doppler Measurements & Calculations MV E max joey: 83.0 cm/sec Lat Peak E' Joey: 13.2 cm/sec Med Peak E' Joey: 7.0 cm/sec MV A max joey: 83.0 cm/sec E/E' lat: 6.3 E/E' med: 11.8 MV E/A: 1.0 MV V2 max: 92.1 cm/sec MV P1/2t max joey: 91.3 cm/sec Ao V2 max: 110.9 cm/sec MV max P.4 mmHg MV P1/2t: 64.1 msec Ao max P.9 mmHg MV V2 mean: 46.5 cm/sec MV dec slope: 417.3 cm/sec2 MV mean P.1 mmHg MV V2 VTI: 26.3 cm MVA(P1/2t): 3.4 cm2 LV V1 max: 95.4 cm/sec PA V2 max: 93.4 cm/sec LV V1 max P.6 mmHg Interpretation Summary Left ventricular systolic function is normal. The estimated ejection fraction is 60 %. Trivial mitral valve insufficiency. Trivial tricuspid valve insufficiency. Diastolic function is indeterminate. Bubble contrast study negative for right to left interatrial shunt. Ordering Physician: Deven Valera Referring Physician: Shashank Tai Chi Performed By: Tyler Austin RCS
--- NOTE | 2019-11-26 23:36 | NURSING ---
Pt unsure of date of PNA shot.
[2019-11-27] VITALS (11 sets, daily range): BP systolic 120–136; BP diastolic 61–76; PULSE 62–83; RESP 13–17; TEMP 36.5–36.9; O2SAT 94–99; BMI 25.3
[2019-11-27] MEDS: Ciprofloxacin 500 MG Tablet PO ×3 (00:06→21:21)
[2019-11-27] MEDS: Atorvastatin Calcium 80 MG Tablet PO ×2 (00:06→21:21)
[2019-11-27 00:10] LABS: Hemoglobin A1c 11.4 % (3.8-5.6)
[2019-11-27] MEDS: Gabapentin 100 MG Capsule PO ×3 (06:41→21:21)
[2019-11-27] MEDS: Methocarbamol 500 MG Tablet PO ×3 (06:41→21:21)
[2019-11-27 06:54] LABS: Absolute Lymphocyte Count 4.58 X10^3/uL (0.83-4.51); Absolute Neutrophil Count 5.5 X10^3/uL (2.0-7.7); Basophil% 0.9 % (0-1); Eosinophil# 0.17 X10^3/uL; Eosinophils% 1.5 % (0-5); Hematocrit 41.7 % (37-47); Hemoglobin 13.6 g/dL (12.0-15.0); Lymphocyte # 4.58 X10^3/ul (4.0); Mean Corp Hgb Conc 32.6 g/dL (32-36); Mean Corpuscular Hgb 31.3 pg (27.0-32.0); Mean Corpuscular Volume 96.1 fL (81-99); Mean Platelet Vol. 10.2 fl (6.2-12.0); Monocyte# 0.78 X10^3/uL; NRBC Flagged by Analyzer 0 % (0-5); Neutrophil # 5.49 X10^3/uL (2.7-7.7); Neutrophil % 49.2 % (47-70); Platelet Count 295 K/mm3 (150-450); RBC Distribution Width SD 46.2 fl (35.1-43.9); Red Blood Count 4.34 M/mm3 (4.2-5.4); White Blood Count 11.2 K/mm3 (4.4-11.0)
[2019-11-27 07:09] LABS: AST(SGOT) 14 U/L (15-37); Alanine Aminotransfer ALT/SGPT 19 U/L (13-56); Albumin, Serum 3.2 g/dL (3.2-5.0); Alkaline Phosphatase 66 U/L (45-117); Anion Gap 8 (5-15); BUN 10 mg/dL (7-18); BUN/Creat Ratio 17.9 RATIO (10-20); Calcium,Total 9.2 mg/dL (8.5-10.1); Chloride 105 mmol/L (98-107); Cholesterol 86 mg/dL (200); Creatinine, Serum 0.56 mg/dL (0.55-1.02); EST Glomerular Filtration Rate 122 mL/min (>60); Est Glom Filt Rate - Afr Amer 148 mL/min (>60); Estimated Creatinine Clearance 118.17 ml/min; Globulin 3.2 g/dL (2.2-4.2); Glucose 132 mg/dL (74-106); High Density Lipoprotein 35 mg/dL; Potassium 3.6 mmol/L (3.5-5.1); Protein, Total 6.4 g/dL (6.4-8.2); Sodium Level 138 mmol/L (136-145); Triglycerides 178 mg/dL; Very Low Density Lipoprotein 36 mg/dL (5-40)
--- NOTE | 2019-11-27 07:30 | MRI_ITS ---
STUDY: MRI BRAIN WITHOUT CONTRAST REASON FOR EXAM: Female, 49 years old. CVA, numbness left side, vision change TECHNIQUE: Standardized multiplanar fat and water weighted pulse sequences were obtained. COMPARISON: 11/26/2019 CT of the head FINDINGS: Normal size of the ventricles and extra-axial spaces for the patient''s age. Normal white matter tracts of the supratentorial brain. Normal bilateral basal ganglia. Normal thalami. There is no extra-axial fluid accumulation. Normal flow voids within the major intracranial circulation suggesting patency by spin echo criteria. Normal sella turcica, pituitary gland, infundibular stalk, optic chiasm and hypothalamus. Normal tectal plate and pineal gland. Normal midbrain, pino and medulla. Normal cerebellum. MRI/Brain without Contrast IMPRESSION: Unremarkable unenhanced MRI of the brain. Electronically Signed: Saturnino Soler MD at 15:09 EDT Tel , Service support ,
[2019-11-27] MEDS: busPIRone 15 MG TABLET PO ×2 (09:27→21:21)
[2019-11-27] MEDS: Escitalopram Oxalate 20 MG Tablet PO ×2 (09:27→21:20)
[2019-11-27] MEDS: Aspirin 81 MG TAB.CHEW PO (09:27)
[2019-11-27] MEDS: Glimepiride 4 MG Tablet PO (09:27)
[2019-11-27] MEDS: Enoxaparin 40 MG/0.4 ML Syringe SC ×2 (09:31→21:20)
[2019-11-27] MEDS: Insulin Lispro 100 UNIT/ML INSULN.PEN SC ×3 (12:07→21:19)
[2019-11-27 12:16] LABS: Bedside Glucose 165 mg/dL (70-110)
--- NOTE | 2019-11-27 13:06 | CASEMGMT ---
RN TEQUILA Assessment Note Intro role of CM to patient in room. Pt states she has generally been independent at home and has not required assistance. She works and plans to return home on dc. Pt/OT notes reviewed with patient and recommendation for further therapy. Pt stated it's too soon to tell what I'll need, I might get better. Discussed Home PT/OT vs Outpt as pt may not be home bound. PT did not recommend further therapy and pt completed OT tasks were independent or contact guard. Again pt did wish to wait. List of [facility] agencies were given and KATHRIN MANDEL let pt knowif Home therapy is needed, could be arranged from home on Friday. Presentation: paresthesia, numbness of L face and L arm Diagnosis: stroke like symptoms PCP: Dr. Tai Insurance: [facility] Pharmacy: [facility] Prescription Benefit: yes LNOK: Father Yeison Friend Living Arrangements: Lives independently in one story home with ramped entrance. Pt states she works, is independent with ADL's and has not required assistance at home prior. . Tranportation: drives but family can assist DME: Has raised toilet seat, tub bench and grab bars, but does not use. HHC: none SNF: none Patient DC Goals: Home DC Plan: anticipate home and likely will not need home therapy as she will not be homebound. May benefit from Outpt therapy and script could be given on dc for [employer]. If Home therapy is needed, leave message with CM x [phone] and this can be arranged on Friday.Claire MCCAULEYN RN ACM
[2019-11-27] MEDS: Glucerna Shake 120 ML LIQUID PO ×3 (14:04→21:18)
--- NOTE | 2019-11-27 15:20 | PCM.PN.HOSP ---
<Jonathan Bingham - Last Filed: 11/27/19 15:20> Patient Problems: Active and Suspected Problems (Last Updated 11/26/19 @ 22:[address] Deven Valera MD) Stroke (Acute) Reason for Visit: Strokelike symptoms Subjective: Pt has no hx of stroke or seizure. Yesterday she was standing at work and started staring off into space while standing, unresponsive to her coworkers. She has no recollection of this. She regains her memory while at the ED and does not remember anything between. She came to her senses in the ED and noticed right away that she had left facial numbness and left arm numbness. She continues to have this with no improvement. She denies GOODEN, vision changes, difficulty swallowing, slurred speech, focal weakness, or ataxia. She has no neck or back pain currently. She does have a hx of migraine but has no GOODEN, last migraine was about 2 months ago. Her MRI and echo were unremarkable but her symptoms continue. She also has decreased blood flow and pulses to her feet, which is not new for her. Vitals/I&O's: Vital Signs Temp Pulse Resp BP Pulse Ox 98.3 F 66 16 120/61 99 11/27/19 13:10 11/27/19 13:10 11/27/19 13:10 11/27/19 13:10 11/27/19 13:10 Oxygen Delivery Method Room Air Weight: 162 lb 0.636 oz Body Mass Index (BMI) 25.3 Finger Stick Blood Glucose 134 Intake and Output for Last 24 Hours 11/25/19 11/26/19 11/27/19 23:59 23:59 23:59 Intake Total 0 / 0 491 / 491 Output Total 0 / 0 Balance 0 / 0 491 / 491 General: Alert, Oriented x3, Cooperative HEENT: Atraumatic, PERRLA, EOMI, Normocephalic Neck: Supple, No JVD, Negative Carotid Bruits Lungs: Clear to auscultation, Normal air movement Cardiovascular: Regular rate, No murmurs Abdomen: Bowel Sounds Present, Soft, Non Tender Extremities: No edema, Diminished Peripheral Pulses Skin: No rashes, No breakdown Musculoskeletal: No Tenderness to Palpation of Joints or Extremities Neurological: - - decreased sensation to the entire left face and left arm. Strenght intact and equal BL upper and lower extremities. NIH exam otherwise normal. Psych/Mental Status: Normal Affect, Appropriate Laboratory Results 11/26/19 19:06: WBC 11.4 H, RBC 4.91, Hgb 15.3 H, Hct 46.1, MCV 93.9, MCH 31.2, MCHC 33.2, RDW Std Deviation 44.9 H, RDW Coeff of Edvin 13.1, Plt Count 342, MPV 10.1, Immature Gran % (Auto) 0.500, Neut % (Auto) 56.5, Lymph % (Auto) 34.2, [place] % (Auto) 7.4, Eos % (Auto) 0.6, Baso % (Auto) 0.8, Absolute Neuts (auto) 6.5, Absolute Lymphs (auto) 3.91, Nucleated RBC % 0 11/26/19 19:06: PT 12.4, INR 1.0, APTT 26.6 11/26/19 19:06: Sodium 139, Potassium 3.6, Chloride 103, Carbon Dioxide 28.0, Anion Gap 8, BUN 11, Creatinine 0.64, Estim Creat Clear Calc 103.40, Est GFR (MDRD) Af Amer 126, Est GFR (MDRD) Non-Af 104, BUN/Creatinine Ratio 17.1, Glucose 144 H, Calcium 10.1, Troponin I < 0.015 11/26/19 19:06: Hemoglobin A1c 11.4 H 11/27/19 06:16: WBC 11.2 H, RBC 4.34, Hgb 13.6, Hct 41.7, MCV 96.1, MCH 31.3, MCHC 32.6, RDW Std Deviation 46.2 H, RDW Coeff of Edvin 13.0, Plt Count 295, MPV 10.2, Immature Gran % (Auto) 0.400, Neut % (Auto) 49.2, Lymph % (Auto) 41.0, [place] % (Auto) 7.0, Eos % (Auto) 1.5, Baso % (Auto) 0.9, Absolute Neuts (auto) 5.5, Absolute Lymphs (auto) 4.58 H, Nucleated RBC % 0 11/27/19 06:16: Sodium 138, Potassium 3.6, Chloride 105, Carbon Dioxide 25.0, Anion Gap 8, BUN 10, Creatinine 0.56, Estim Creat Clear Calc 118.17, Est GFR (MDRD) Af Amer 148, Est GFR (MDRD) Non-Af 122, BUN/Creatinine Ratio 17.9, Glucose 132 H, Calcium 9.2, Total Bilirubin 0.40, AST 14 L, ALT 19, Alkaline Phosphatase 66, Total Protein 6.4, Albumin 3.2, Globulin 3.2, Albumin/Globulin Ratio 1.0, Triglycerides 178, Cholesterol 86, LDL Cholesterol 15, VLDL Cholesterol 36, HDL Cholesterol 35 L 11/27/19 12:01: POC Glucose 165 H 11/27/19 15:00: Urine Opiates Screen Pending, Urine Methadone Screen Pending, Ur Barbiturates Screen Pending, Ur Phencyclidine Scrn Pending, Ur Amphetamines Screen Pending, U Methamphetamin-MDMA Pending, U Benzodiazepines Scrn Pending, Urine Cocaine Screen Pending, U Cannabinoids Screen Pending, Ur Drug Screen Comment Current Medications Acetaminophen (Tylenol) 650 mg PO Q6H PRN PRN PRN Reason: Pain Score 1-10/Temp > 100.7 F Amlodipine Besylate (Norvasc) 2.5 mg PO DAILY [facility] Aspirin (Aspirin, Baby) 81 mg PO DAILY@0800 [facility] Last Admin: 11/27/19 09:27 Dose: 81 mg Documented by: Atorvastatin Calcium (Lipitor) 80 mg PO QHS [facility] Last Admin: 11/27/19 00:06 Dose: 80 mg Documented by: Buspirone HCl (Buspar) 15 mg PO BID [facility] Last Admin: 11/27/19 09:27 Dose: 15 mg Documented by: Celecoxib (Celebrex) 200 mg PO DAILY@2200 [facility] Ciprofloxacin HCl (Cipro) 500 mg PO BID [facility] Last Admin: 11/27/19 09:27 Dose: 500 mg Documented by: Dextrose (D50w Syringe) 0 gm IV X1 PRN; Protocol PRN Reason: Hypoglycemia Enoxaparin Sodium (Lovenox) 40 mg SC BID [facility] Last Admin: 11/27/19 09:31 Dose: 40 mg Documented by: Escitalopram Oxalate (Lexapro) 20 mg PO BID [facility] Last Admin: 11/27/19 09:27 Dose: 20 mg Documented by: Gabapentin (Neurontin) 100 mg PO TID [facility] Last Admin: 11/27/19 14:04 Dose: 100 mg Documented by: Glimepiride (Amaryl) 4 mg PO DAILYCM [facility] Last Admin: 11/27/19 09:27 Dose: 4 mg Documented by: Glucagon () 1 mg IM .X1 PRN PRN Reason: Hypoglycemia Hydralazine HCl (Apresoline Iv) 5 mg IV Q30M PRN PRN Reason: to maintain BP goals Sodium Chloride () 250 mls @ 15 mls/hr IV .[id number] PRN PRN Reason: Saline Flush Sodium Chloride () 250 mls @ 15 mls/hr IV .[id number] PRN PRN Reason: Additional IVPB Infusion Insulin Human Lispro (Humalog Kwikpen (Bkc)) 0 unit SC ACHS [facility]; Protocol Last Admin: 11/27/19 12:07 Dose: 1 units Documented by: Iopamidol (Contrast Allergy Check) 0 ml IV X1 ANDREW Labetalol HCl (Trandate) 10 - 20 mg IV Q10M PRN PRN PRN Reason: to maintain BP goals Methocarbamol (Robaxin) 500 mg PO TID [facility] Last Admin: 11/27/19 14:04 Dose: 500 mg Documented by: Nutritional Formula (Lactose Free) (Glucerna Shake) 120 ml PO 4X/DAY [facility] Last Admin: 11/27/19 14:04 Dose: 120 ml Documented by: Ondansetron HCl (Zofran) 4 mg IV Q8H PRN PRN PRN Reason: NAUSEA/VOMITING Pioglitazone HCl (Actos) 30 mg PO DAILY@2200 [facility] Sodium Chloride () 10 - 40 ml IV UD PRN PRN Reason: SALINE FLUSH Tramadol HCl (Ultram) 50 mg PO Q6H PRN PRN PRN Reason: Pain (1-10/10) or Fever STROKE Vital Signs/Narrative: Vital Signs Temp Pulse Resp BP Pulse Ox 11/27/19 13:10 98.3 F 66 16 120/61 99 Medical Necessity - Tobacco Use Smoking Status: Current every day smoker Tobacco Use: Cigarettes Assessment/Plan All Active Problems (Last Updated 11/26/19 @ 22:[address] Deven Valera MD) Stroke (Acute) 1. Parasthesias, unspecified etiology. Amnesia, transient global. MRI neg for stroke. Echo unremarkable. Normal CTA head and neck. Symptoms ongoing. Obtain EEG as she had an absence episode. No hx seizure/stroke. + Hx migraine, however no headache at this time. Last migraine 2 months ago. Pt already on aspirin/statin at home. Check B12. Recent TSH normal. 2. Suspected PAD - diminished peripheral pulses. Obtain JOSEPH study tomorrow, CTA abd with runoff. Norvasc, aspirin. 3. DMt2 - actos, amaryl, SSI . Metformin held. A1C 11.4. 4. Recent UTI - pt to complete prior Cipro regimen. 5. Anx/Depression - Buspar, Lexapro 6. Chronic pain - home regimen continued. DVT ppx: lovenox This patient was seen by Jonathan Bingham PA-C under the supervision of Dr. Ríos. <Yousuf Ríos - Last Filed: 11/27/19 15:44> Subjective: Still with left face and arm numbness. Complains of bilateral great toe discoloration for roughly 2 months. She though it was from wearing new shoes that were a 1/2 size too small. Notes maroon discoloration of her fingers when they get cold. Quit smoking about a month ago. Vitals/I&O's: Vital Signs Temp Pulse Resp BP Pulse Ox 36.8 C 66 16 120/61 99 11/27/19 13:10 11/27/19 13:10 11/27/19 13:10 11/27/19 13:10 11/27/19 13:10 Oxygen Delivery Method Room Air Weight: 73.5 kg Body Mass Index (BMI) 25.3 Finger Stick Blood Glucose 134 Intake and Output for Last 24 Hours 11/25/19 11/26/19 11/27/19 23:59 23:59 23:59 Intake Total 0 / 0 491 / 491 Output Total 0 / 0 Balance 0 / 0 491 / 491 General: Alert, Cooperative HEENT: Atraumatic, Normocephalic Neck: No Nodes, Thyroid Normal Size and Texture Lungs: Clear to auscultation, Normal air movement Cardiovascular: Regular rate, No murmurs Abdomen: Bowel Sounds Present, Soft, Non Tender Extremities: No edema, Diminished Peripheral Pulses - faint DP pulse on right detected with doppler. Unable to detect pulse with doppler in bilateral PT, and left DP. Skin: No rashes, No breakdown Musculoskeletal: No Tenderness to Palpation of Joints or Extremities Neurological: - Psych/Mental Status: Normal Affect, Appropriate Laboratory Results 11/26/19 19:06: WBC 11.4 H, RBC 4.91, Hgb 15.3 H, Hct 46.1, MCV 93.9, MCH 31.2, MCHC 33.2, RDW Std Deviation 44.9 H, RDW Coeff of Edvin 13.1, Plt Count 342, MPV 10.1, Immature Gran % (Auto) 0.500, Neut % (Auto) 56.5, Lymph % (Auto) 34.2, [place] % (Auto) 7.4, Eos % (Auto) 0.6, Baso % (Auto) 0.8, Absolute Neuts (auto) 6.5, Absolute Lymphs (auto) 3.91, Nucleated RBC % 0 11/26/19 19:06: PT 12.4, INR 1.0, APTT 26.6 11/26/19 19:06: Sodium 139, Potassium 3.6, Chloride 103, Carbon Dioxide 28.0, Anion Gap 8, BUN 11, Creatinine 0.64, Estim Creat Clear Calc 103.40, Est GFR (MDRD) Af Amer 126, Est GFR (MDRD) Non-Af 104, BUN/Creatinine Ratio 17.1, Glucose 144 H, Calcium 10.1, Troponin I < 0.015 11/26/19 19:06: Hemoglobin A1c 11.4 H 11/27/19 06:16: WBC 11.2 H, RBC 4.34, Hgb 13.6, Hct 41.7, MCV 96.1, MCH 31.3, MCHC 32.6, RDW Std Deviation 46.2 H, RDW Coeff of Edvin 13.0, Plt Count 295, MPV 10.2, Immature Gran % (Auto) 0.400, Neut % (Auto) 49.2, Lymph % (Auto) 41.0, [place] % (Auto) 7.0, Eos % (Auto) 1.5, Baso % (Auto) 0.9, Absolute Neuts (auto) 5.5, Absolute Lymphs (auto) 4.58 H, Nucleated RBC % 0 11/27/19 06:16: Sodium 138, Potassium 3.6, Chloride 105, Carbon Dioxide 25.0, Anion Gap 8, BUN 10, Creatinine 0.56, Estim Creat Clear Calc 118.17, Est GFR (MDRD) Af Amer 148, Est GFR (MDRD) Non-Af 122, BUN/Creatinine Ratio 17.9, Glucose 132 H, Calcium 9.2, Total Bilirubin 0.40, AST 14 L, ALT 19, Alkaline Phosphatase 66, Total Protein 6.4, Albumin 3.2, Globulin 3.2, Albumin/Globulin Ratio 1.0, Triglycerides 178, Cholesterol 86, LDL Cholesterol 15, VLDL Cholesterol 36, HDL Cholesterol 35 L 11/27/19 12:01: POC Glucose 165 H 11/27/19 15:00: Urine Opiates Screen Pending, Urine Methadone Screen Pending, Ur Barbiturates Screen Pending, Ur Phencyclidine Scrn Pending, Ur Amphetamines Screen Pending, U Methamphetamin-MDMA Pending, U Benzodiazepines Scrn Pending, Urine Cocaine Screen Pending, U Cannabinoids Screen Pending, Ur Drug Screen Comment Current Medications Acetaminophen (Tylenol) 650 mg PO Q6H PRN PRN PRN Reason: Pain Score 1-10/Temp > 100.7 F Amlodipine Besylate (Norvasc) 2.5 mg PO DAILY [facility] Aspirin (Aspirin, Baby) 81 mg PO DAILY@0800 [facility] Last Admin: 11/27/19 09:27 Dose: 81 mg Documented by: Atorvastatin Calcium (Lipitor) 80 mg PO QHS [facility] Last Admin: 11/27/19 00:06 Dose: 80 mg Documented by: Buspirone HCl (Buspar) 15 mg PO BID [facility] Last Admin: 11/27/19 09:27 Dose: 15 mg Documented by: Celecoxib (Celebrex) 200 mg PO DAILY@2200 [facility] Ciprofloxacin HCl (Cipro) 500 mg PO BID [facility] Last Admin: 11/27/19 09:27 Dose: 500 mg Documented by: Dextrose (D50w Syringe) 0 gm IV X1 PRN; Protocol PRN Reason: Hypoglycemia Enoxaparin Sodium (Lovenox) 40 mg SC BID [facility] Last Admin: 11/27/19 09:31 Dose: 40 mg Documented by: Escitalopram Oxalate (Lexapro) 20 mg PO BID [facility] Last Admin: 11/27/19 09:27 Dose: 20 mg Documented by: Gabapentin (Neurontin) 100 mg PO TID [facility] Last Admin: 11/27/19 14:04 Dose: 100 mg Documented by: Glimepiride (Amaryl) 4 mg PO DAILYCM [facility] Last Admin: 11/27/19 09:27 Dose: 4 mg Documented by: Glucagon () 1 mg IM .X1 PRN PRN Reason: Hypoglycemia Hydralazine HCl (Apresoline Iv) 5 mg IV Q30M PRN PRN Reason: to maintain BP goals Sodium Chloride () 250 mls @ 15 mls/hr IV .[id number] PRN PRN Reason: Saline Flush Sodium Chloride () 250 mls @ 15 mls/hr IV .[id number] PRN PRN Reason: Additional IVPB Infusion Insulin Human Lispro (Humalog Kwikpen (Bkc)) 0 unit SC ACHS [facility]; Protocol Last Admin: 11/27/19 12:07 Dose: 1 units Documented by: Iopamidol (Contrast Allergy Check) 0 ml IV X1 ANDREW Labetalol HCl (Trandate) 10 - 20 mg IV Q10M PRN PRN PRN Reason: to maintain BP goals Methocarbamol (Robaxin) 500 mg PO TID [facility] Last Admin: 11/27/19 14:04 Dose: 500 mg Documented by: Nutritional Formula (Lactose Free) (Glucerna Shake) 120 ml PO 4X/DAY [facility] Last Admin: 11/27/19 14:04 Dose: 120 ml Documented by: Ondansetron HCl (Zofran) 4 mg IV Q8H PRN PRN PRN Reason: NAUSEA/VOMITING Pioglitazone HCl (Actos) 30 mg PO DAILY@2200 [facility] Sodium Chloride () 10 - 40 ml IV UD PRN PRN Reason: SALINE FLUSH Tramadol HCl (Ultram) 50 mg PO Q6H PRN PRN PRN Reason: Pain (1-1010) or Fever STROKE Vital Signs/Narrative: Vital Signs Temp Pulse Resp BP Pulse Ox 11/27/19 13:10 36.8 C 66 16 120/61 99 Assessment/Plan Patient seen and examined independently. Data reviewed. I agree with the above note by the physician assistant merchandise manager. 1. paresthesias: began with staring off spell. CVA work up negative. Etiologies could be TGA, seizure. Check EEG. 2. PAD: noted cyanosis of bilateral great toes severely diminished pulses. Check ABIs, CTA abd with run offs. On ASA. Consider cilostazol. 3. Possible Raynaud's: start amlodipine. Inpatient E&M: 42701 Subs Hosp L3
[2019-11-27 15:47] LABS: Amphetamine Urine VISTA NEGATIVE (<1000 ng/mL); Barbiturate Urine VISTA NEGATIVE (< 200 ng/mL); Benzodiazepine Urine VISTA NEGATIVE (< 200 ng/mL); Cocaine Urine VISTA NEGATIVE (< 300 ng/mL); Ecstacy Urine VISTA NEGATIVE (< 500 ng/mL); Methadone Urine VISTA NEGATIVE (< 300 ng/mL); PCP Urine VISTA NEGATIVE (< 25 ng/mL); THC Urine VISTA NEGATIVE (< 50 ng/mL); Vista UDS pH Range 6
[2019-11-27 17:15] LABS: Bedside Glucose 198 mg/dL (70-110)
[2019-11-27] MEDS: Acetaminophen 325 MG Tablet 650 MG PO (18:31)
[2019-11-27 19:46] LABS: Bedside Glucose 133 mg/dL (70-110)
[2019-11-27] MEDS: traMADol 50 MG Tablet PO (20:37)
[2019-11-27] MEDS: Celecoxib 200 MG Capsule PO (21:21)
[2019-11-27] MEDS: Pioglitazone Hydrochloride 30 MG Tablet PO (21:22)
[2019-11-27 21:36] LABS: Bedside Glucose 184 mg/dL (70-110)
[2019-11-28] VITALS (10 sets, daily range): BP systolic 109–132; BP diastolic 60–68; PULSE 61–75; RESP 16–18; TEMP 36.5–36.8; O2SAT 94–98; BMI 25.3
[2019-11-28] MEDS: Gabapentin 100 MG Capsule PO ×3 (06:34→21:31)
[2019-11-28] MEDS: Methocarbamol 500 MG Tablet PO ×3 (06:34→21:32)
[2019-11-28] MEDS: Insulin Lispro 100 UNIT/ML INSULN.PEN SC ×3 (06:34→21:32)
[2019-11-28 06:41] LABS: Bedside Glucose 162 mg/dL (70-110)
--- NOTE | 2019-11-28 08:00 | CT_ITS ---
STUDY: CTA OF THE ABDOMEN AND PELVIS REASON FOR EXAM: Female, 49 years old. CYANOSIS,DECREASED BLOOD FLOW TO FEET, PARASTHESIA,AMNESIA RADIATION DOSAGE (If Supplied By Facility): CTDIvol = ( 6.87 ) mGy, DLP = ( 1302.69 ) mGycm TECHNIQUE: Axial CT angiography multi-detector data acquisition was obtained from the to the following intravenous administration of 100 CC ISOVUE 370. Axial images and MIP images were reconstructed from the axial data set. Post-processing of the angiographic images was performed, with multiplanar reformation and 3D reconstruction. Individualized dose optimization techniques were used for this CT. TECHNICAL QUALITY: Good COMPARISON: None. Descriptors of Narrowing: None (0%) Mild (< 50%) Moderate (50-70%) Severe (70-90%) Subtotal/Total Occlusion (90-100%) Non-Evaluable (technically non-diagnostic FINDINGS: Abdominal aorta: Mild to moderate mural thrombus is present very distal aspect of the abdominal aorta just above the aortoiliac bifurcation resulting in mild to moderate luminal stenosis. The abdominal aorta is normal above this level. No dissection. No aneurysm. Celiac and superior mesenteric arteries: No demonstrated narrowing. Inferior mesenteric artery: No demonstrated narrowing. Right renal artery(arteries): No demonstrated narrowing. Left renal artery(arteries): No demonstrated narrowing. Right common iliac artery: No demonstrated narrowing. Right external iliac artery: No demonstrated narrowing. Right internal iliac artery: There is mild diffuse narrowing. Left common iliac artery: No demonstrated narrowing. Left external iliac artery: No demonstrated narrowing. Left internal iliac artery: There is mild diffuse narrowing. RIGHT LOWER EXTREMITY Right common femoral artery: No demonstrated narrowing. Right profundus femoris: No demonstrated narrowing. Right superficial femoral: No demonstrated narrowing. Right popliteal artery: No demonstrated narrowing. Right tibioperoneal trunk: No demonstrated narrowing. Right anterior tibial artery: There is mild diffuse narrowing, with visualization of the vessel to the distal calf. Right posterior tibial artery: There is mild diffuse narrowing, with visualization of the vessel to the distal calf. Right peroneal artery: There is mild diffuse narrowing, with visualization of the vessel to the distal calf. LEFT LOWER EXTREMITY Left common femoral artery: No demonstrated narrowing. Left profundus femoris: No demonstrated narrowing. Left superficial femoral: No demonstrated narrowing. Left popliteal artery: No demonstrated narrowing. Left tibioperoneal trunk: No demonstrated narrowing. Left anterior tibial artery: There is mild diffuse narrowing, with visualization of the vessel to the distal calf. Left posterior tibial artery: There is mild diffuse narrowing, with visualization of the vessel to the distal calf. Left peroneal artery: There is mild diffuse narrowing, with visualization of the vessel to the distal calf. The visualized lung bases are unremarkable. Normal liver. There are surgical clips in the gallbladder fossa consistent with a prior cholecystectomy. A small surgical clip is seen near the posterior aspect of the right lobe of the liver. Normal spleen. Normal pancreas. Normal bilateral adrenal glands. Normal right kidney. Normal left kidney. Normal visualized stomach. Normal small intestine. Normal colon. There is non-visualization of the appendix. Normal inferior vena cava. Normal retroperitoneum. Normal urinary bladder. Normal visualized uterus. All amount of subcutaneous gas seen in the right anterior abdominal wall is likely related to a therapeutic injection. Diffuse body wall edema is present. Normal osseous structures. CT/CTA Abd w/Runoff W/WO Contrast IMPRESSION: 1. Mild narrowing of the distal abdominal aorta above the aortoiliac bifurcation due to atherosclerotic plaque and mural thrombus 2. Mild narrowing of the bilateral calf arteries. Electronically Signed: Rico Loving MD at 23:34 EDT , Service support ,
[2019-11-28] MEDS: Aspirin 81 MG TAB.CHEW PO (09:18)
[2019-11-28] MEDS: Ciprofloxacin 500 MG Tablet PO ×2 (09:18→21:31)
[2019-11-28] MEDS: busPIRone 15 MG TABLET PO ×2 (09:18→21:31)
[2019-11-28] MEDS: Glimepiride 4 MG Tablet PO (09:18)
[2019-11-28] MEDS: Escitalopram Oxalate 20 MG Tablet PO ×2 (09:19→21:31)
[2019-11-28] MEDS: amLODIPine 2.5 MG Tablet PO (09:19)
[2019-11-28] MEDS: Enoxaparin 40 MG/0.4 ML Syringe SC ×2 (09:25→21:32)
--- NOTE | 2019-11-28 11:35 | PCM.PN.HOSP ---
<Jonathan Bingham - Last Filed: 11/28/19 11:35> Patient Problems: Active and Suspected Problems (Last Updated 11/26/19 @ 22:[address] Deven Valera MD) Stroke (Acute) Reason for Visit: Parasthesias Vitals/I&O's: Vital Signs Temp Pulse Resp BP Pulse Ox 97.7 F L 74 16 132/61 H 94 11/28/19 08:57 11/28/19 08:57 11/28/19 08:57 11/28/19 08:57 11/28/19 08:57 Oxygen Delivery Method Room Air Weight: 162 lb 0.636 oz Body Mass Index (BMI) 25.3 Finger Stick Blood Glucose 134 Intake and Output for Last 24 Hours 11/26/19 11/27/19 11/28/19 23:59 23:59 23:59 Intake Total 0 / 0 951 / 951 75 / 75 Output Total 0 / 0 Balance 0 / 0 951 / 951 75 / 75 General: Alert, Oriented x3, Cooperative HEENT: Atraumatic, PERRLA, EOMI, Normocephalic Neck: Supple, No JVD, Negative Carotid Bruits Lungs: Clear to auscultation, Normal air movement Cardiovascular: Regular rate, No murmurs Abdomen: Bowel Sounds Present, Soft, Non Tender Extremities: No edema, Cool, Cyanosis, - - DP/PT non palpable BL. Small black wounds on left great toe right 5th digit. no cellulitic changes appreciable. Skin: No rashes, No breakdown Musculoskeletal: No Tenderness to Palpation of Joints or Extremities Neurological: Cranial nerves II-XII grossly intact Psych/Mental Status: Normal Affect, Appropriate Laboratory Results 11/27/19 06:39: POC Glucose 133 H 11/27/19 12:01: POC Glucose 165 H 11/27/19 15:00: Urine Opiates Screen NEGATIVE, Urine Methadone Screen NEGATIVE, Ur Barbiturates Screen NEGATIVE, Ur Phencyclidine Scrn NEGATIVE, Ur Amphetamines Screen NEGATIVE, U Methamphetamin-MDMA NEGATIVE, U Benzodiazepines Scrn NEGATIVE, Urine Cocaine Screen NEGATIVE, U Cannabinoids Screen NEGATIVE, Ur Drug Screen Comment 11/27/19 16:08: Vitamin B12 Pending 11/27/19 16:24: POC Glucose 198 H 11/27/19 21:14: POC Glucose 184 H 11/28/19 06:32: POC Glucose 162 H Current Medications Acetaminophen (Tylenol) 650 mg PO Q6H PRN PRN PRN Reason: Pain Score 1-10/Temp > 100.7 F Last Admin: 11/27/19 18:31 Dose: 650 mg Documented by: Amlodipine Besylate (Norvasc) 2.5 mg PO DAILY [facility] Last Admin: 11/28/19 09:19 Dose: 2.5 mg Documented by: Aspirin (Aspirin, Baby) 81 mg PO DAILY@0800 [facility] Last Admin: 11/28/19 09:18 Dose: 81 mg Documented by: Atorvastatin Calcium (Lipitor) 80 mg PO QHS [facility] Last Admin: 11/27/19 21:21 Dose: 80 mg Documented by: Buspirone HCl (Buspar) 15 mg PO BID [facility] Last Admin: 11/28/19 09:18 Dose: 15 mg Documented by: Celecoxib (Celebrex) 200 mg PO DAILY@2200 [facility] Last Admin: 11/27/19 21:21 Dose: 200 mg Documented by: Ciprofloxacin HCl (Cipro) 500 mg PO BID [facility] Last Admin: 11/28/19 09:18 Dose: 500 mg Documented by: Dextrose (D50w Syringe) 0 gm IV X1 PRN; Protocol PRN Reason: Hypoglycemia Enoxaparin Sodium (Lovenox) 40 mg SC BID [facility] Last Admin: 11/28/19 09:25 Dose: 40 mg Documented by: Escitalopram Oxalate (Lexapro) 20 mg PO BID [facility] Last Admin: 11/28/19 09:19 Dose: 20 mg Documented by: Gabapentin (Neurontin) 100 mg PO TID [facility] Last Admin: 11/28/19 06:34 Dose: 100 mg Documented by: Glimepiride (Amaryl) 4 mg PO DAILYCM [facility] Last Admin: 11/28/19 09:18 Dose: 4 mg Documented by: Glucagon () 1 mg IM .X1 PRN PRN Reason: Hypoglycemia Hydralazine HCl (Apresoline Iv) 5 mg IV Q30M PRN PRN Reason: to maintain BP goals Sodium Chloride () 250 mls @ 15 mls/hr IV .[id number] PRN PRN Reason: Saline Flush Sodium Chloride () 250 mls @ 15 mls/hr IV .[id number] PRN PRN Reason: Additional IVPB Infusion Insulin Human Lispro (Humalog Kwikpen (Bkc)) 0 unit SC ACHS [facility]; Protocol Last Admin: 11/28/19 06:34 Dose: 1 units Documented by: Iopamidol (Contrast Allergy Check) 0 ml IV X1 [facility] Last Admin: 11/27/19 16:17 Dose: Not Given Documented by: Labetalol HCl (Trandate) 10 - 20 mg IV Q10M PRN PRN PRN Reason: to maintain BP goals Methocarbamol (Robaxin) 500 mg PO TID [facility] Last Admin: 11/28/19 06:34 Dose: 500 mg Documented by: Nutritional Formula (Lactose Free) (Glucerna Shake) 120 ml PO 4X/DAY [facility] Last Admin: 11/28/19 09:23 Dose: Not Given Documented by: Ondansetron HCl (Zofran) 4 mg IV Q8H PRN PRN PRN Reason: NAUSEA/VOMITING Pioglitazone HCl (Actos) 30 mg PO DAILY@2200 [facility] Last Admin: 11/27/19 21:22 Dose: 30 mg Documented by: Sodium Chloride () 10 - 40 ml IV UD PRN PRN Reason: SALINE FLUSH Tramadol HCl (Ultram) 50 mg PO Q6H PRN PRN PRN Reason: Pain (1-10/10) or Fever Last Admin: 11/27/19 20:37 Dose: 50 mg Documented by: STROKE Vital Signs/Narrative: Vital Signs Temp Pulse Resp BP Pulse Ox 11/28/19 08:57 97.7 F L 74 16 132/61 H 95 Medical Necessity - Tobacco Use Smoking Status: Current every day smoker Tobacco Use: Cigarettes Assessment/Plan All Active Problems (Last Updated 11/26/19 @ 22:[address] Deven Valera MD) Stroke (Acute) 1. Parasthesias, unspecified etiology. Amnesia, transient global. MRI neg for stroke. Echo unremarkable. Normal CTA head and neck. Symptoms ongoing. EEG read pending, SOC to read. B12 pending. Recent TSH normal. Tox screen neg. 2. Suspected PAD - diminished peripheral pulses. JOSEPH / CTA abd with runoff pending. Continue Norvasc, aspirin. Small toe wounds concerning for necrotic wounds. No longer smoking. 3. DMt2 - actos, amaryl, SSI . Metformin held. A1C 11.4. 4. Recent UTI - continue cipro for 5 days total, started 11/25 5. Anx/Depression - Buspar, Lexapro 6. Chronic pain - home regimen continued. DVT ppx: lovenox This patient was seen by Jonathan Bingham PA-C under the supervision of Dr. Ríos. <Yousuf Ríos - Last Filed: 11/28/19 11:50> Vitals/I&O's: Vital Signs Temp Pulse Resp BP Pulse Ox 36.5 C L 74 16 132/61 H 94 11/28/19 08:57 11/28/19 08:57 11/28/19 08:57 11/28/19 08:57 11/28/19 08:57 Oxygen Delivery Method Room Air Weight: 73.5 kg Body Mass Index (BMI) 25.3 Finger Stick Blood Glucose 134 Intake and Output for Last 24 Hours 11/26/19 11/27/19 11/28/19 23:59 23:59 23:59 Intake Total 0 / 0 951 / 951 75 / 75 Output Total 0 / 0 Balance 0 / 0 951 / 951 75 / 75 General: Alert, Cooperative HEENT: Atraumatic, Normocephalic Extremities: Diminished Peripheral Pulses, - Psych/Mental Status: Normal Affect, Appropriate Laboratory Results 11/27/19 06:39: POC Glucose 133 H 11/27/19 12:01: POC Glucose 165 H 11/27/19 15:00: Urine Opiates Screen NEGATIVE, Urine Methadone Screen NEGATIVE, Ur Barbiturates Screen NEGATIVE, Ur Phencyclidine Scrn NEGATIVE, Ur Amphetamines Screen NEGATIVE, U Methamphetamin-MDMA NEGATIVE, U Benzodiazepines Scrn NEGATIVE, Urine Cocaine Screen NEGATIVE, U Cannabinoids Screen NEGATIVE, Ur Drug Screen Comment 11/27/19 16:08: Vitamin B12 Pending 11/27/19 16:24: POC Glucose 198 H 11/27/19 21:14: POC Glucose 184 H 11/28/19 06:32: POC Glucose 162 H Current Medications Acetaminophen (Tylenol) 650 mg PO Q6H PRN PRN PRN Reason: Pain Score 1-10/Temp > 100.7 F Last Admin: 11/27/19 18:31 Dose: 650 mg Documented by: Amlodipine Besylate (Norvasc) 2.5 mg PO DAILY [facility] Last Admin: 11/28/19 09:19 Dose: 2.5 mg Documented by: Aspirin (Aspirin, Baby) 81 mg PO DAILY@0800 [facility] Last Admin: 11/28/19 09:18 Dose: 81 mg Documented by: Atorvastatin Calcium (Lipitor) 80 mg PO QHS [facility] Last Admin: 11/27/19 21:21 Dose: 80 mg Documented by: Buspirone HCl (Buspar) 15 mg PO BID [facility] Last Admin: 11/28/19 09:18 Dose: 15 mg Documented by: Celecoxib (Celebrex) 200 mg PO DAILY@2200 [facility] Last Admin: 11/27/19 21:21 Dose: 200 mg Documented by: Ciprofloxacin HCl (Cipro) 500 mg PO BID [facility] Last Admin: 11/28/19 09:18 Dose: 500 mg Documented by: Dextrose (D50w Syringe) 0 gm IV X1 PRN; Protocol PRN Reason: Hypoglycemia Enoxaparin Sodium (Lovenox) 40 mg SC BID [facility] Last Admin: 11/28/19 09:25 Dose: 40 mg Documented by: Escitalopram Oxalate (Lexapro) 20 mg PO BID [facility] Last Admin: 11/28/19 09:19 Dose: 20 mg Documented by: Gabapentin (Neurontin) 100 mg PO TID [facility] Last Admin: 11/28/19 06:34 Dose: 100 mg Documented by: Glimepiride (Amaryl) 4 mg PO DAILYCM [facility] Last Admin: 11/28/19 09:18 Dose: 4 mg Documented by: Glucagon () 1 mg IM .X1 PRN PRN Reason: Hypoglycemia Hydralazine HCl (Apresoline Iv) 5 mg IV Q30M PRN PRN Reason: to maintain BP goals Sodium Chloride () 250 mls @ 15 mls/hr IV .[id number] PRN PRN Reason: Saline Flush Sodium Chloride () 250 mls @ 15 mls/hr IV .[id number] PRN PRN Reason: Additional IVPB Infusion Insulin Human Lispro (Humalog Tammiepen (Bkc)) 0 unit SC ACHS [facility]; Protocol Last Admin: 11/28/19 06:34 Dose: 1 units Documented by: Iopamidol (Contrast Allergy Check) 0 ml IV X1 [facility] Last Admin: 11/27/19 16:17 Dose: Not Given Documented by: Labetalol HCl (Trandate) 10 - 20 mg IV Q10M PRN PRN PRN Reason: to maintain BP goals Methocarbamol (Robaxin) 500 mg PO TID [facility] Last Admin: 11/28/19 06:34 Dose: 500 mg Documented by: Nutritional Formula (Lactose Free) (Glucerna Shake) 120 ml PO 4X/DAY [facility] Last Admin: 11/28/19 09:23 Dose: Not Given Documented by: Ondansetron HCl (Zofran) 4 mg IV Q8H PRN PRN PRN Reason: NAUSEA/VOMITING Pioglitazone HCl (Actos) 30 mg PO DAILY@2200 [facility] Last Admin: 11/27/19 21:22 Dose: 30 mg Documented by: Sodium Chloride () 10 - 40 ml IV UD PRN PRN Reason: SALINE FLUSH Tramadol HCl (Ultram) 50 mg PO Q6H PRN PRN PRN Reason: Pain (1-1010) or Fever Last Admin: 11/27/19 20:37 Dose: 50 mg Documented by: STROKE Vital Signs/Narrative: Vital Signs Temp Pulse Resp BP Pulse Ox 11/28/19 08:57 36.5 C L 74 16 132/61 H 95 Assessment/Plan Patient seen and examined independently. Data reviewed. I agree with the above note by the physician contract administrative assistant. 1. paresthesias: began with staring off spell. CVA work up negative. Etiologies could be TGA, seizure. Check EEG. 2. PAD: noted cyanosis of bilateral great toes severely diminished pulses. Check ABIs, CTA abd with run offs. On ASA. Consider cilostazol. 3. Possible Raynaud's: amlodipine. Inpatient E&M: 95858 Subs Hosp L2
[2019-11-28 12:41] LABS: Bedside Glucose 181 mg/dL (70-110)
[2019-11-28] MEDS: 0.9% Saline Lock 10 ML Syringe IV (15:35)
[2019-11-28 17:00] LABS: Bedside Glucose 109 mg/dL (70-110)
[2019-11-28] MEDS: Celecoxib 200 MG Capsule PO (21:31)
[2019-11-28] MEDS: Pioglitazone Hydrochloride 30 MG Tablet PO (21:32)
[2019-11-28] MEDS: Atorvastatin Calcium 80 MG Tablet PO (21:32)
[2019-11-28] MEDS: Glucerna Shake 120 ML LIQUID PO (21:37)
[2019-11-28 22:41] LABS: Bedside Glucose 253 mg/dL (70-110)
[2019-11-29] VITALS (7 sets, daily range): BP systolic 125–130; BP diastolic 64–72; PULSE 61–81; RESP 14–16; TEMP 36.3–36.6; O2SAT 94–99; BMI 25.3
[2019-11-29] MEDS: traMADol 50 MG Tablet PO (01:09)
[2019-11-29 03:46] LABS: Bedside Glucose 105 mg/dL (70-110)
[2019-11-29] MEDS: Gabapentin 100 MG Capsule PO ×2 (06:35→14:35)
[2019-11-29] MEDS: Methocarbamol 500 MG Tablet PO ×2 (06:35→14:35)
[2019-11-29 06:50] LABS: Bedside Glucose 132 mg/dL (70-110)
[2019-11-29] MEDS: Escitalopram Oxalate 20 MG Tablet PO (09:01)
[2019-11-29] MEDS: Ciprofloxacin 500 MG Tablet PO (09:01)
[2019-11-29] MEDS: busPIRone 15 MG TABLET PO (09:01)
[2019-11-29] MEDS: Aspirin 81 MG TAB.CHEW PO (09:01)
[2019-11-29] MEDS: amLODIPine 2.5 MG Tablet PO (09:01)
[2019-11-29] MEDS: Glimepiride 4 MG Tablet PO (09:01)
[2019-11-29] MEDS: Enoxaparin 40 MG/0.4 ML Syringe SC (09:02)
[2019-11-29] MEDS: Glucerna Shake 120 ML LIQUID PO ×3 (09:02→16:25)
[2019-11-29 10:28] LABS: Vitamin B12 438 pg/mL (211-911)
[2019-11-29] MEDS: Insulin Lispro 100 UNIT/ML INSULN.PEN SC ×2 (10:41→16:24)
[2019-11-29 10:46] LABS: Bedside Glucose 250 mg/dL (70-110)
[2019-11-29] MEDS: 0.9% Saline Lock 10 ML Syringe IV (14:37)
[2019-11-29 16:25] LABS: Bedside Glucose 192 mg/dL (70-110)
--- NOTE | 2019-11-29 16:29 | PCM.DC.SUM ---
<Jonathan Bingham - Last Filed: 11/29/19 16:29> Discharge Date and Diagnosis Date of Admission: 11/26/19 Date of Discharge: 11/29/19 - Primary Discharge Diagnosis Acute Problems: Active Problems (Last Updated 11/26/19 @ 22:[address] Deven Valera MD) Parasthesias unspecified Global amnesia unspecified PAD Aortic Mural thrombus DMt2 Anxiety/depression Chronic pain syndrome Hospital Course and Treatment Imaging Results: IMAGING: CT/CTA Head AND Neck W/ Contrast IMPRESSION: Normal CTA Head and neck with contrast. RAD/Chest 1 View IMPRESSION: Normal x-ray examination of the chest. MRI/Brain without Contrast IMPRESSION: Unremarkable unenhanced MRI of the brain. 2D TTEcho: Interpretation Summary Left ventricular systolic function is normal. The estimated ejection fraction is 60 %. Trivial mitral valve insufficiency. Trivial tricuspid valve insufficiency. Diastolic function is indeterminate. Bubble contrast study negative for right to left interatrial shunt. CT/CTA Abd w/Runoff W/WO Contrast IMPRESSION: 1. Mild narrowing of the distal abdominal aorta above the aortoiliac bifurcation due to atherosclerotic plaque and mural thrombus 2. Mild narrowing of the bilateral calf arteries. EEG: Waking and drowsing EEG is within normal limits. There were no focal or paroxysmal abnormalities to suggest a risk of seizures. Consults: Teleneuro - SOC Operations: None Procedures: 2-D Echocardiogram, Electroencephalogram Summary of Care Provided: Hospital Course: The patient is a 49 year old F with a past medical history of type 2 diabetes, anxiety, depression, chronic pain syndrome, who presented to the emergency room with amnesia and strokelike symptoms. The patient was at work and was noticed to be staring off blankly by her coworkers. They attempted to address her but she was unresponsive. She was standing at the time. She had no syncope or fall. The squad was called and she was brought to the emergency room. She begins to recollect being in the emergency room but nothing before that. Into the ER she complained of left facial paresthesias as well as left forearm paresthesias. Of note the day prior to this she was diagnosed with a urinary tract infection and started on Cipro (this was continued). In the ER she had a mild leukocytosis at 11.4, a BMP which was fairly unremarkable, negative troponin, recent TSH which was normal. She was admitted for stroke work-up. She underwent an MRI of the brain which was negative for stroke. CTA of the head and neck was unremarkable. Echocardiogram was unremarkable. Tox screen was negative. B12 level was normal. As she had an absence episode, an EEG was obtained which was negative for seizure. Later, on reevaluation, she complained of cold extremities and her feet. On assessment she had cyanotic feet and toes, diminished peripheral pulses, and small wounds concerning for developing dry gangrene. A CTA runoff study of the abdomen and pelvis was obtained which revealed a mural thrombus just before the iliac bifurcation. We are concerned that she may have showered her distal arteries with emboli, and therapeutic lovenox was started. She continues to have ongoing parasthesias that she came in with, tho she notes that these are not as severe as they were initially. We are concerned that she may have other possible sources of emboli elsewhere and that the issues of her strokelike symptoms and PAD may be linked. She may have an underlying rheumatoid issue or hypercoagulable issues: both a rheumatoid panel and hypercoag panel are pending at this time. We feel that the patient would benefit from inpatient evaluation by vascular surgery, rheumatology, and neurology. The patient was accepted by the medicine service at [facility] under Dr. Jin. She was discharged in stable condition. Please note her urine culture shows E coli >100,000 cfu resistant to ampicillin, she began cipro on 11/25. A1C was checked here and was 11.4 tho her blood sugar was fairly well controlled while here with her home medications plus sliding scale insulin. This patient was seen by Jonathan Bingham PA-C under the supervision of Dr. Jeong.[] - Physical Exam Vitals/I&O's: Vital Signs Temp Pulse Resp BP Pulse Ox 97.4 F L 76 16 126/72 H 94 11/29/19 14:33 11/29/19 15:54 11/29/19 14:33 11/29/19 14:33 11/29/19 14:33 Oxygen Delivery Method Room Air Weight: 162 lb 0.636 oz Body Mass Index (BMI) 25.3 Finger Stick Blood Glucose 134 Intake and Output for Last 24 Hours 11/27/19 11/28/19 11/29/19 23:59 23:59 23:59 Intake Total 951 / 951 925 / 1165 740 / 740 Balance 951 / 951 925 / 1165 740 / 740 General: Alert, Oriented x3, Cooperative HEENT: Atraumatic, PERRLA, EOMI, Normocephalic Neck: Supple, No JVD, Negative Carotid Bruits Lungs: Clear to auscultation, Normal air movement Cardiovascular: Regular rate, No murmurs Abdomen: Bowel Sounds Present, Soft, Non Tender Extremities: No edema, Capillary Refill Less than 3 Seconds Skin: No rashes, No breakdown Musculoskeletal: No Tenderness to Palpation of Joints or Extremities Neurological: - - slight decreased sensation left cheek, left forearm Psych/Mental Status: Normal Affect, Appropriate, Alert and oriented to time, place, person, mood and affect Laboratory Results 11/27/19 16:08: Vitamin B12 438 11/27/19 16:08: JOSE Screen Pending, KIYA-1 Antibody Pending, SS-A/Ro IgG Antibody Pending, SS-B/La IgG Antibody Pending, Sm (Condon) Antibody Pending, B[employer]ING [employer]PERATOR Antibody Pending, Scl-70 Scleroderma Ab Pending, Double Strand DNA Ab Pending, Centromere B Antibody Pending 11/28/19 16:50: POC Glucose 109 11/28/19 21:30: POC Glucose 253 H 11/29/19 03:32: POC Glucose 105 11/29/19 06:34: POC Glucose 132 H 11/29/19 10:40: POC Glucose 250 H 11/29/19 13:03: Miscellaneous Test Pending 11/29/19 13:03: Protein C Antigen Pending, Functional Protein C Pending, Prot C Funct Activity Pending, Antithrombin III Ag Pending, Func Antithrombin III Pending, Factor V Leiden Mutat Pending, Beta-2-GPI IgG Ab Pending, Beta-2-GPI IgA Ab Pending, Beta-2-GPI IgM Ab Pending, Anti-Cardiolipin IgG Ab Pending, Anti-Cardiolipin IgM Ab Pending, Factor II DNA Analysis Pending 11/29/19 16:17: POC Glucose 192 H Current Medications Acetaminophen (Tylenol) 650 mg PO Q6H PRN PRN PRN Reason: Pain Score 1-10/Temp > 100.7 F Last Admin: 11/27/19 18:31 Dose: 650 mg Documented by: Amlodipine Besylate (Norvasc) 2.5 mg PO DAILY [facility] Last Admin: 11/29/19 09:01 Dose: 2.5 mg Documented by: Aspirin (Aspirin, Baby) 81 mg PO DAILY@0800 [facility] Last Admin: 11/29/19 09:01 Dose: 81 mg Documented by: Buspirone HCl (Buspar) 15 mg PO BID [facility] Last Admin: 11/29/19 09:01 Dose: 15 mg Documented by: Celecoxib (Celebrex) 200 mg PO DAILY@2200 [facility] Last Admin: 11/28/19 21:31 Dose: 200 mg Documented by: Ciprofloxacin HCl (Cipro) 500 mg PO BID [facility] Last Admin: 11/29/19 09:01 Dose: 500 mg Documented by: Dextrose (D50w Syringe) 0 gm IV X1 PRN; Protocol PRN Reason: Hypoglycemia Enoxaparin Sodium (Lovenox) 70 mg SC Q12 [facility] Escitalopram Oxalate (Lexapro) 20 mg PO BID [facility] Last Admin: 11/29/19 09:01 Dose: 20 mg Documented by: Gabapentin (Neurontin) 100 mg PO TID [facility] Last Admin: 11/29/19 14:35 Dose: 100 mg Documented by: Glimepiride (Amaryl) 4 mg PO DAILYCM [facility] Last Admin: 11/29/19 09:01 Dose: 4 mg Documented by: Glucagon () 1 mg IM .X1 PRN PRN Reason: Hypoglycemia Hydralazine HCl (Apresoline Iv) 5 mg IV Q30M PRN PRN Reason: to maintain BP goals Sodium Chloride () 250 mls @ 15 mls/hr IV .[id number] PRN PRN Reason: Saline Flush Sodium Chloride () 250 mls @ 15 mls/hr IV .[id number] PRN PRN Reason: Additional IVPB Infusion Insulin Human Lispro (Humalog Kwikpen (Bkc)) 0 unit SC ACHS [facility]; Protocol Last Admin: 11/29/19 16:24 Dose: 2 units Documented by: Labetalol HCl (Trandate) 10 - 20 mg IV Q10M PRN PRN PRN Reason: to maintain BP goals Methocarbamol (Robaxin) 500 mg PO TID [facility] Last Admin: 11/29/19 14:35 Dose: 500 mg Documented by: Nutritional Formula (Lactose Free) (Glucerna Shake) 120 ml PO 4X/DAY [facility] Last Admin: 11/29/19 16:25 Dose: 120 ml Documented by: Ondansetron HCl (Zofran) 4 mg IV Q8H PRN PRN PRN Reason: NAUSEA/VOMITING Pioglitazone HCl (Actos) 30 mg PO DAILY@2200 [facility] Last Admin: 11/28/19 21:32 Dose: 30 mg Documented by: Sodium Chloride () 10 - 40 ml IV UD PRN PRN Reason: SALINE FLUSH Last Admin: 11/29/19 14:37 Dose: 10 ml Documented by: Tramadol HCl (Ultram) 50 mg PO Q6H PRN PRN PRN Reason: Pain (-03/11) or Fever Last Admin: 11/29/19 01:09 Dose: 50 mg Documented by: Discharge Diet: - - As directed by receiving facility Discharge Activity: - - As directed by receiving facility Home Medications: Medications to take at Discharge Escitalopram Oxalate [Lexapro] 20 mg PO BID 02/28/14 Metformin [Metformin HCl] 1,000 mg PO BID 02/28/14 Atorvastatin Calcium [Lipitor] 40 mg PO QHS 11/26/19 Celecoxib [Celebrex] 200 mg PO QHS 11/26/19 Ciprofloxacin [Cipro] 500 mg PO BID 11/26/19 Gabapentin [Neurontin] 100 mg PO TID 11/26/19 Glimepiride [Amaryl] 4 mg PO QHS 11/26/19 Methocarbamol [Robaxin] 500 mg PO TID 11/26/19 Pioglitazone [Actos] 30 mg PO QHS 11/26/19 busPIRone [Buspar] 15 mg PO BID 11/26/19 traMADol [Ultram (G)] 50 mg PO Q6H PRN PRN 11/26/19 Primary Care Physician: Shashank Tai Chi, MD [Primary Care Provider] - Please follow up with your Primary Care Physician in: As directed by receiving facility Disposition: Acute care Hospital Minutes spent on discharge:: 40 Patient Condition:: Stable Medical Necessity - Tobacco Use Smoking Status: Current every day smoker Tobacco Use: Cigarettes Meaningful Use Info Meaningful Use Diagnoses (Choose all that apply): None applicable <Osmar Jeong - Last Filed: 11/30/19 10:27> Hospital Course and Treatment Summary of Care Provided: This patient was seen in conjunction with Jonathan Bingham PA-C . I have independently interviewed and examined the patient and reviewed pertinent historical, laboratory, and other data. Please refer to Jonathan Bingham PA-C note for details of this patient's presentation, findings, and recommendations. I have reviewed Jonathan Bingham PA-C note and concur with documented findings. In brief, patient is 49-year-old lady admitted with strokelike symptoms Hospital course as documented above - Physical Exam Vitals/I&O's: Vital Signs Temp Pulse Resp BP Pulse Ox 97.4 F L 76 16 126/72 H 94 11/29/19 14:33 11/29/19 15:54 11/29/19 14:33 11/29/19 14:33 11/29/19 14:33 Oxygen Delivery Method Room Air Weight: 73.5 kg Body Mass Index (BMI) 25.3 Finger Stick Blood Glucose 134 Intake and Output for Last 24 Hours 11/28/19 11/29/19 11/30/19 23:59 23:59 23:59 Intake Total 925 / 1165 740 / 740 Balance 925 / 1165 740 / 740 Laboratory Results 11/27/19 16:08: Vitamin B12 438 11/29/19 10:40: POC Glucose 250 H 11/29/19 13:03: Miscellaneous Test Pending 11/29/19 13:03: Protein C Antigen Pending, Functional Protein C Pending, Prot C Funct Activity Pending, Antithrombin III Ag Pending, Func Antithrombin III Pending, Factor V Leiden Mutat Pending, Beta-2-GPI IgG Ab Pending, Beta-2-GPI IgA Ab Pending, Beta-2-GPI IgM Ab Pending, Anti-Cardiolipin IgG Ab Pending, Anti-Cardiolipin IgM Ab Pending, Factor II DNA Analysis Pending 11/29/19 16:17: POC Glucose 192 H Inpatient E&M: [id number] Disch Hosp
--- NOTE | 2019-11-29 17:30 | NURSING ---
Report called to Khushboo PINON at [facility] main, ETA given
[2019-11-30 15:39] LABS: ANTINUCLEAR ANTIBODIES DIRECT Negative (Negative)
[2019-12-06 16:07] LABS: Protein C Antigen 140 % (60-150); Protein C, Functional 139 % (73-180)
[2019-12-07 01:54] LABS: Anti-Cardiolipin Ab, IgG, Qn < 9 GPL U/mL (0-14); Anti-Cardiolipin Ab, IgM, Qn < 9 MPL U/mL (0-12); Anti-Thrombin 3 AG, Immunol 103 % (72-124); Antithrombin 3 Function 116 % (75-135); Beta-2-Glycoprotein I IgA 24 (0-25); Beta-2-Glycoprotein I IgG <9 (0-20); Beta-2-Glycoprotein I IgM <9 (0-32)
== END 2019-11-29 16:28 | disposition short-term general hospital (02) ==
LOC: ED 21:40 → PCU 11-27 02:32
PROVIDERS: Emergency Medicine; Physician Assistant; Admitting Provider Hospitalist; Emergency Provider Emergency Medicine; PCP Family Medicine Geriatric Medicine; Visit Provider Internal Medicine
DX: R20.2 Paresthesia of skin (principal); E11.51 Type 2 diabetes mellitus with diabetic peripheral angiopathy without gangrene; F41.9 Anxiety disorder, unspecified; F32.9 Major depressive disorder, single episode, unspecified; G89.4 Chronic pain syndrome; R41.3 Other amnesia; R29.702 NIHSS score 2; R20.0 Anesthesia of skin; N39.0 Urinary tract infection, site not specified; R29.810 Facial weakness; B96.20 Unspecified Escherichia coli [E. coli] as the cause of diseases classified elsewhere; Z16.11 Resistance to penicillins; H53.8 Other visual disturbances; Z79.899 Other long term (current) drug therapy; Z79.84 Long term (current) use of oral hypoglycemic drugs; F17.210 Nicotine dependence, cigarettes, uncomplicated
CPT/HCPCS: 36415; 70496; 70498; 70551; 71045; 75635; 80048; 80053; 80061; 80307; 81240; 81241; 82607; 82962; 83036; 84484; 85025; 85300; 85301; 85302; 85303; 85610; 85730; 86038; 86146; 86147; 86225; 86235; 92610; 93005; 93306; 94762; 95819; 96372; 97110; 97116; 97161; 97165; 97530; 97535; 99218; 99285; 99406; Q9967; A4216; G0378

== ENCOUNTER 2019-12-14 22:16 | Emergency (ER) | payer BC, SELFPAY ==
[2019-11-29 16:43] VITALS: BMI 25.3
[2019-12-14 22:20] VITALS: BP 92/70; PULSE 85; RESP 16; TEMP 37.1; O2SAT 97; BMI 26.8
--- NOTE | 2019-12-14 22:23 | EKG12_ITS ---
Test Reason : Blood Pressure : / mmHG Vent. Rate : 080 BPM Atrial Rate : 080 BPM P-R Int : 168 ms QRS Dur : 074 ms QT Int : 404 ms P-R-T Axes : 057 -06 027 degrees QTc Int : 465 ms Normal sinus rhythm Normal ECG Confirmed by SAUL CRUZ, SONIA ([id number]), associate editor TIFFANY ROMEO ([id number]) on 12/16/2019 9:41:41 AM Referred By: AKILAH Confirmed By:SONIA HUGHES MD
--- NOTE | 2019-12-14 22:23 | CT_ITS ---
STUDY: CT ABDOMEN AND PELVIS WITH CONTRAST REASON FOR EXAM: Female, 49 years old. Aortoiliac grafting with stent placement 12/04/2019. Bleeding at right inguinal surgical site tonight. Elevated white blood count. Patient on Coumadin. RADIATION DOSAGE (If Supplied By Facility): CTDIvol = ( 11.72 ) mGy, DLP = ( 925.85 ) mGycm TECHNIQUE: Transaxial images were obtained from the dome of the diaphragm to the symphysis pubis without oral contrast. IV 100mL Isovue-370 was administered. Sagittal and coronal images were reconstructed. Individualized dose optimization techniques were used for this CT. COMPARISON: CTA abdominal aorta with bilateral runoff November 28, 2019. FINDINGS: The visualized lung bases are unremarkable. The visualized portions of the heart are within normal limits. Normal liver. There are surgical clips in the gallbladder fossa consistent with a prior cholecystectomy. 5 mm barely discernible low-attenuation lesion inferior aspect of the spleen probably representing an incidental cyst or hemangioma axial image 27 series 2. Normal pancreas. Normal bilateral adrenal glands. Normal right kidney. Subcentimeter cortical cyst superior pole left kidney. Probable 2.7 x 1.3 cm fat-containing mass superior pole of the left kidney very suggestive of an incidental angiomyolipoma axial image 28 series 2. 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 Normal visualized stomach. Normal small intestine. Small diverticula right lower quadrant. The appendix is visualized and appears normal. Portions of bowel in the left abdomen not well distended and without oral contrast limiting evaluation. The appearance of proximal jejunum is probably related to peristalsis and nonwall thickening. No retroperitoneal hematoma. Stent of the distal abdominal aorta measuring 3 cm in craniocaudad dimension. No evidence of a leak. No para-aortic masses. Normal inferior vena cava. Normal retroperitoneum. No intra-abdominal free air. Normal urinary bladder. Uterus grossly normal. No adnexal mass is seen. Mild subcutaneous soft tissue stranding right inguinal region suggestive of postoperative change. No fluid collections. 1.3 cm right inguinal lymph node. 1.6 cm density subcutaneous soft tissue left anterior pelvis probably related to medication injection. Normal osseous structures. CT/Abdomen/Pelvis W IV Cont ONLY IMPRESSION: No acute findings in the abdomen or pelvis. No intra-abdominal free air or free fluid collections. No retroperitoneal hematoma. Mild postoperative changes right inguinal region. Distal abdominal aortic stent. No evidence of a leak. No para-aortic masses. Subcentimeter low-attenuation lesion inferior spleen probably representing an incidental cyst or hemangioma. This can be correlated with ultrasound if clinically warranted. 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 Limited evaluation of bowel in the left abdomen. Grossly no abnormalities. Small left renal cortical cyst. Electronically Signed: Scar Dmuont MD at 0:21 EDT , Service support ,
--- NOTE | 2019-12-14 22:24 | ED.VIS.GEN ---
History of Present Illness Chief Complaint: Wound Check Informant: Patient Onset: Today Context: Sudden Onset Timing: Intermittent Current Severity: Mild Maximum Severity: Moderate Narrative: The patient is a 49-year-old female with recent complex medical history that presents to the emergency department with bleeding from postoperative wound. The patient underwent aorto iliac grafting with stent placement at the [facility] at 03 December. She had multiple emboli within the area and had embolectomy. She has been on Coumadin. She states today, she had sudden onset diarrhea. She states she went to the bathroom and when she got up, she noticed bleeding from her puncture site. She denies any pain down the leg. She denies any fevers or chills. She states she is otherwise been in her normal state of health. Prior similar symptoms: No Recent Illness/Hospitalization: Yes Past Medical History - Allergies and Home Meds Allergies/Adverse Reactions: Allergies Penicillins [PCN] Allergy (Verified 02/18/15 13:52) Hives Primary Care Physician: Shashank Tai Chi, MD [Primary Care Provider] - Prior records reviewed: Yes Past Medical History: - - Hypertension, hyperlipidemia Surgical History: cholecystectomy, - - Tubal ligation; surgery kidney stone and kidney infection. Smoking Status: Current every day smoker - Family History Maternal Family History: Reports: Cancer - Breast, Diabetes, Heart Disease Paternal Family History: Reports: Cancer - Breast and colon, Diabetes, Heart Disease Review of Systems General: Denies: Chills, Fever, Sweats Eyes: Denies: Visual changes - bilaterally, Diplopia ENT: Denies: Rhinorrhea, Sore throat Cardiovascular: Denies: Chest pain, Palpitations Respiratory: Denies: Dyspnea, Cough, Dyspnea on exertion Gastrointestinal: Denies: Abdominal pain, Nausea, Vomiting, Diarrhea, Melena, Hematochezia Genitourinary: Denies: Dysuria, Hematuria, Frequency Musculoskeletal: Denies: Back pain, Extremity Pain Skin: Denies: Rash, Wounds Neurological: Denies: Headache, Weakness, Numbness Physical Exam Vital Signs/Narrative: Vital Signs Temp Pulse Resp BP Pulse Ox 12/14/19 22:20 98.8 F 85 16 92/70 97 Inital Vital Signs reviewed: Yes General: Well nourished, Well developed, No Acute Distress Head: Normocephalic, Atraumatic Eyes: Perrl, EOMI ENT: Moist mucous membranes, No rhinorrhea Neck: Supple, Nontender Cardiovascular: Regular rate, Regular rhythm, No murmurs Respiratory: No distress, CTA bilaterally, Chest nontender Abdomen: Soft, Nontender, Nondistended, Normal bowel sounds Back: Nontender, Normal Inspection Extremities: No edema, Tenderness - Old blood at the area of the femoral artery puncture. Small hematoma. No active bleeding. Normal pulses in the lower extremity. Skin: Normal color, No rash Neurological: Alert, Oriented x3, Cranial nerves II-XII grossly intact, Normal Strength, Normal Sensation Psychological: Normal affect, Normal Mood Diagnostic/Tx/Re-eval Discharge from the [facility] on 12/06, patient's WBC was 12.2, hemoglobin 8.2. Abnormal Lab Results 12/14/19 12/14/19 12/14/19 22:40 22:40 22:40 WBC 11.5 H RBC 2.78 L Hgb 8.6 L Hct 27.7 L MCV 99.6 H MCH 30.9 MCHC 31.0 L RDW Std Deviation 53.4 H RDW Coeff of Edvin 14.7 H Plt Count 644 H MPV 8.4 Immature Gran % (Auto) 0.600 Neut % (Auto) 51.9 Lymph % (Auto) 37.0 Gregg % (Auto) 7.0 Eos % (Auto) 2.9 Baso % (Auto) 0.6 Absolute Neuts (auto) 6.0 Absolute Lymphs (auto) 4.27 Nucleated RBC % 0 Differential Comment SEE COMMENT Platelet Estimate MKD INC RBC Morphology N CHROM Polychromasia RARE Hypochromasia RARE Anisocytosis RARE Macrocytosis RARE Target Cells RARE PT 20.5 H INR 1.8 Sodium 139 Potassium 3.5 Chloride 106 Carbon Dioxide 30.0 Anion Gap 3 L BUN 10 Creatinine 0.55 Estim Creat Clear Calc 120.32 Est GFR (MDRD) Af Amer 150 Est GFR (MDRD) Non-Af 124 BUN/Creatinine Ratio 18.1 Glucose 155 H Calcium 8.9 Total Bilirubin 0.20 AST 29 ALT 24 Alkaline Phosphatase 84 Total Protein 6.7 Albumin 3.1 L Globulin 3.6 Albumin/Globulin Ratio 0.9 Clinical Impression(s) from Imaging Studies Abdomen/Pelvis CT 12/14/19 22:23 IMPRESSION: No acute findings in the abdomen or pelvis. No intra-abdominal free air or free fluid collections. No retroperitoneal hematoma. Mild postoperative changes right inguinal region. Distal abdominal aortic stent. No evidence of a leak. No para-aortic masses. Subcentimeter low-attenuation lesion inferior spleen probably representing an incidental cyst or hemangioma. This can be correlated with ultrasound if clinically warranted. 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 Limited evaluation of bowel in the left abdomen. Grossly no abnormalities. Small left renal cortical cyst. Electronically Signed: Scar Dumont MD at 0:21 EDT , Service support , - Medical Decision Making The patient presents after having bleeding from her arterial puncture site. There is no current active bleeding. I do not feel a palpable thrill or audible bruit. Her pulses are maintained in her lower extremity. My suspicion is that the patient likely had a small hematoma that evacuated when she moved. She has had no active bleeding since. The area itself is clean, dry, and intact. There is no cellulitis or evidence of infection. Labs were obtained and are relatively unremarkable. Her hemoglobin has improved since discharge from the hospital. Her white blood cells have decreased. Patient underwent CT imaging. There is no evidence of retroperitoneal hematoma, abscess, other dangerous process. Again, I do feel that this is likely a small hematoma at her surgical puncture site. There is no evidence of continued bleeding. Her pulses are normal. At this point, the patient will be discharged home with outpatient follow-up. Impression 1. Postoperative hematoma ED Disposition - Plan for ED Patient: Instructions: ED Wound Check Post Op Bleeding Referrals: Shashank Tai Chi, MD [Primary Care Provider] -
[2019-12-14 22:44] VITALS: BP 103/76; PULSE 81; RESP 16; TEMP 36.6; O2SAT 97
[2019-12-14 22:49] LABS: Absolute Lymphocyte Count 4.27 X10^3/uL (0.83-4.51); Basophil# 0.07 X10^3/uL; Basophil% 0.6 % (0-1); Eosinophil# 0.34 X10^3/uL; Eosinophils% 2.9 % (0-5); Hematocrit 27.7 % (37-47); Hemoglobin 8.6 g/dL (12.0-15.0); Lymphocyte # 4.27 X10^3/ul (4.0); Mean Corpuscular Hgb 30.9 pg (27.0-32.0); Mean Corpuscular Volume 99.6 fL (81-99); Mean Platelet Vol. 8.4 fl (6.2-12.0); Monocyte# 0.81 X10^3/uL; NRBC Flagged by Analyzer 0 % (0-5); Neutrophil # 5.98 X10^3/uL (2.7-7.7); Neutrophil % 51.9 % (47-70); POSITIVE MORPHOLOGY YES; Platelet Count 644 K/mm3 (150-450); RBC Distribution Width CV 14.7 % (11.6-14.6); RBC Distribution Width SD 53.4 fl (35.1-43.9); Red Blood Count 2.78 M/mm3 (4.2-5.4); White Blood Count 11.5 K/mm3 (4.4-11.0)
[2019-12-14 22:54] LABS: Differential Indicated SCAN CRITERIA MET
[2019-12-14 23:04] LABS: International Normalized Ratio 1.8; Prothrombin Time (Protime)PT. 20.5 SECONDS (11.7-14.9)
[2019-12-14 23:10] LABS: ALB/GLOB Ratio 0.9 RATIO (0.9-2.4); AST(SGOT) 29 U/L (15-37); Alanine Aminotransfer ALT/SGPT 24 U/L (13-56); Albumin, Serum 3.1 g/dL (3.2-5.0); Alkaline Phosphatase 84 U/L (45-117); Anion Gap 3 (5-15); BUN 10 mg/dL (7-18); BUN/Creat Ratio 18.1 RATIO (10-20); Calcium,Total 8.9 mg/dL (8.5-10.1); Chloride 106 mmol/L (98-107); Creatinine, Serum 0.55 mg/dL (0.55-1.02); EST Glomerular Filtration Rate 124 mL/min (>60); Est Glom Filt Rate - Afr Amer 150 mL/min (>60); Estimated Creatinine Clearance 120.32 ml/min; Globulin 3.6 g/dL (2.2-4.2); Glucose 155 mg/dL (74-106); Potassium 3.5 mmol/L (3.5-5.1); Protein, Total 6.7 g/dL (6.4-8.2); Sodium Level 139 mmol/L (136-145)
[2019-12-14 23:21] LABS: Platelet Estimate MKD INC (ADEQ); Red Cell Morphology N CHROM NORMAL (NORM C&C)
[2019-12-14 23:23] LABS: Anisocytosis RARE; Hypochromasia RARE; Macrocytosis RARE; Polychromasia RARE; Target Cells RARE
[2019-12-15 00:07] LABS: Bacteria 0 SEEN /hpf (None Seen); Mucous, Urine 0 SEEN /hpf (<or=2+); Red Blood Cells-Urine 0 SEEN /hpf (0-5); White Blood Cells 0 SEEN /hpf (0-5)
[2019-12-15 00:10] LABS: Color, Urine Yellow (Yellow); Glucose, Dipstick Normal (Normal); Ketone-Dipstick 5 mg/dl (Negative); Leukocyte Esterase-Dipstick Negative /ul (Negative); Nitrite-Dipstick Negative (Negative); Occult Blood-Urine Negative /ul (Negative); Protein-Dipstick 15 mg/dl (Negative); Specific Gravity, Urine 1.015 (1.002-1.030); Urine Bilirubin Dipstick Negative (Negative); Urine Clarity Clear (Clear); Urine Urobilinogen 1 mg/dl (Normal)
[2019-12-15 00:17] LABS: Squamous Epithelial Cells - UA 0-5 SEEN /hpf (5-10)
[2019-12-15 00:50] VITALS: BP 98/60; PULSE 70; RESP 16; O2SAT 98
== END 2019-12-15 00:56 | disposition home or self-care (01) ==
LOC: ED 22:52
PROVIDERS: Emergency Provider Emergency Medicine; PCP Family Medicine Geriatric Medicine
DX: L76.32 Postprocedural hematoma of skin and subcutaneous tissue following other procedure (principal); I10 Essential (primary) hypertension; E78.5 Hyperlipidemia, unspecified; F17.200 Nicotine dependence, unspecified, uncomplicated; Z79.01 Long term (current) use of anticoagulants; Z79.899 Other long term (current) drug therapy
CPT/HCPCS: 74177; 80053; 81001; 85025; 85610; 93005; 96360; 99285; J7040; Q9967; A4216

== ENCOUNTER 2019-12-22 07:42 | Outpatient (RCR) | payer BC, SELFPAY ==
[2019-12-22 08:05] VITALS: BP 123/70; PULSE 83; RESP 16; TEMP 36.2
--- NOTE | 2019-12-22 08:58 | PCM.WC.HP ---
(1) Aortic aneurysm of unspecified site without mention of rupture Status: Acute Current Visit: Yes Code(s): I71.9 - Aortic aneurysm of unspecified site, without rupture (2) Hx of long-term use of blood thinners Status: Acute Current Visit: Yes Code(s): Z92.29 - Personal history of other drug therapy (3) Bilateral iliac artery thrombosis Status: Acute Current Visit: Yes Code(s): I74.5 - Embolism and thrombosis of iliac artery History of Present Illness Date of Service: 12/22/19 Chief Complaint: Follow-up right arterial iliac surgical site on December 03. History of Wound: 49-year-old white female was at work on December 03 and apparently started acting strange and going in circles. 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 He is currently on Coumadin for blood thinners. Had a stent put in her aorta and she also states something which sounds like a stenosis in her bilateral iliac arterial arteries. Patient was doing well and was at home on December 14 she started oozing blood out of the right groin surgical site and went to the [place] emergency room. She constantly loses from the right groin area bright red blood she states through a pinhole of a well approximated healing surgical wounds. Patient does not understand how blood thinners work and and discussed with patient that the reason she is oozing is because her blood is so thin it is taking longer to heal. She needs a compression dressing on the right groin area. There is no open wound noted the skin is well approximated. She does have an appointment with her surgeon the end of November. Will apply a calcium alginate with compression dressing over top and tell her to change it every other day as needed. Past Medical History Past Medical History: Blood clot in her aorta. Blood thinners Coumadin Surgical History: cholecystectomy, - - Tubal ligation; surgery kidney stone and kidney infection. Allergies/Adverse Reactions: Allergies Penicillins [PCN] Allergy (Verified 02/18/15 13:52) Hives Home Medications: Ambulatory Orders Medication Instructions Recorded Escitalopram Oxalate [Lexapro] 20 mg PO BID 02/28/14 Metformin [Metformin HCl] 1,000 mg PO BID 02/28/14 Atorvastatin Calcium [Lipitor] 40 mg PO QHS 11/26/19 Clopidogrel Bisulfate [Clopidogrel] 75 mg PO DAILY 12/14/19 Insulin Glargine [Lantus SoloStar 12 units SQ QHS 12/14/19 Pen] Insulin Lispro [Humalog KwikPen] See Protocol SQ DAILY 12/14/19 Oxycodone HCl 5 mg PO PRN PRN 12/14/19 Warfarin [Coumadin (PBKC)] 5 mg PO DAILY 12/14/19 - Family History Maternal Cancer - Breast, Diabetes, Heart Disease Paternal Cancer - Breast and colon, Diabetes, Heart Disease Smoking Status: Current every day smoker Review of Systems Constitutional: Denies: Chills, Fever Eyes: Denies: Blurred vision, Drainage, Pain HEENT: Denies: Difficulty Hearing, Difficulty Swallowing, Sore Throat, Visual Changes Cardiovascular: Denies: Chest Pain, Palpitations, Syncope Respiratory: Denies: Cough, Shortness of Breath Gastrointestinal: Denies: Abdominal Pain, Nausea, Vomiting Genitourinary: Denies: Dysuria, Frequency Musculoskeletal: Denies: Joint Pain, Muscle pain Skin: Reports: Wounds - Right groin oozing blood. Denies: Jaundice, Rash Neurological: Denies: Balance problems, Change in Speech, Difficulty swallowing, Focal weakness Psychiatric: Denies: Anxiety, Depression Endocrine: Denies: Change in Body Habitus Hematologic/ Lymphatic: Denies: Adenopathy - Physical Exam Vital Signs Temp Pulse Resp BP 97.2 F L 83 16 123/70 H 12/22/19 08:05 12/22/19 08:05 12/22/19 08:05 12/22/19 08:05 General: Oriented x3, Cooperative, Well developed HEENT: Atraumatic, PERRLA Oral: Moist Mucosa Neck: Supple, No JVD Lungs: Clear to auscultation, Normal air movement Cardiovascular: Regular rate, Regular Rhythm Abdomen: Bowel Sounds Present, Soft, Non Tender, No Hepato-splenomegaly Extremities: No clubbing, No edema Skin: Ulcer/ Wound - Right groin surgical wound well approximated Wound Measurements and Assessment WC - Nurse 1 - General Ulcer Measurement Start: 12/22/19 08:02 Freq: Status: Active Protocol: Activity Type Activity Date Activity User E-Sign Co-Sign Detail Recorded Client Recorded Date Recorded By Document 12/22/19 08:05 [facility] [id number] 12/22/19 08:19 BMF 12/22/19 08:05 Wound Center Nurse 1 [Ulcer Assessment] #1- R GROIN POST AORTIC ILIAC GRAFTING W/ STENT -Combined with other wound No -Current Size (cm) - Length 0.1 -Current Size (cm) - Width 0.1 -Current Size (cm) - Depth 0.1 -Total Square Cm 0.01 -Date of Last Picture (Recall this 12/22/19 field) -Photo Taken Yes -Epithelialization None Present -Tunneling No -Undermining/Tunneling No -Circular Undermining No -Exudate Amt Small -Exudate Type Serous -Wound Margin Distinct, Outline Attached -Granulation Amt Large (67-100%) -Granulation Quality Red -Slough/Fibrin No -Necrosis Amt None Present (0 %) -Texture (Marilu-wound Skin Appearance) Assessed, Scarring -Moisture (Marilu-wound Skin Appearance Assessed ) -Color (Marilu-wound Skin Appearance) Assessed, Ecchymosis -Temperature (Marilu-wound Skin No Abnormality Appearance) (Pt Warm) -Tenderness on Palpation (Marilu-wound No Skin Appearance) -Ulcer Cleansing Rinsed/ Irrigated with Saline -Foul Odor after Cleansing No -Anesthetic Used 5% Lidocaine Gel WC - Nurse 2 - General Ulcer CM Notes Start: 12/22/19 08:02 Freq: Status: Active Protocol: Activity Type Activity Date Activity User E-Sign Co-Sign Detail Recorded Client Recorded Date Recorded By Document 12/22/19 08:31 PL [id number] 12/22/19 08:36 PL 12/22/19 08:31 Wound Center Nurse 2 [Procedure/Treatment] -Wound/Ulcer Outcome Healed- Epithelialized -Ulcer Cleansing Rinsed/ Irrigated with Saline -Foul Odor after Cleansing No [See Physician Procedure note for Specifics] Pain Scale: 0-10 Numeric [Pain] -Is Patient Pain Free? Yes Musculoskeletal: No Tenderness to Palpation of Joints or Extremities Lymphatic: No Cervical, Supraclavicular, or Inguinal Adenopathy Neurological: Cranial nerves II-XII grossly intact, Neuro grossly intact Psych/Mental Status: Normal Affect, Appropriate Debridement Note Post-Debridement Measurements/Treatment WC - Nurse 2 - General Ulcer CM Notes Start: 12/22/19 08:02 Freq: Status: Active Protocol: Activity Type Activity Date Activity User E-Sign Co-Sign Detail Recorded Client Recorded Date Recorded By Document 12/22/19 08:31 PL [id number] 12/22/19 08:36 PL 12/22/19 08:31 Wound Center Nurse 2 #1- R GROIN POST AORTIC ILIAC GRAFTING W / STENT -Wound/Ulcer Outcome Healed- Epithelialized -Ulcer Cleansing Rinsed/ Irrigated with Saline -Foul Odor after Cleansing No Pain Scale: 0-10 Numeric Is Patient Pain Free? Yes No debridement was completed today Assessment/Plan Active Problems (Last Updated 11/26/19 @ 22:[address] 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 Long-term use of blood thinners. Aortic aneurysm Plan: Continue to cleanse the area with antibacterial soap. Apply him alginate dry then pressure dressing over top right groin area. Change dressing every other day. Follow-up with surgeon. Lots of reassurance given. Discharge from the wound center
== END 2019-12-31 23:59 ==
LOC: WC 07:42
PROVIDERS: PCP Family Medicine Geriatric Medicine; Referring Provider Nurse Practitioner; Visit Provider Nurse Practitioner
DX: T81.89XA Other complications of procedures, not elsewhere classified, initial encounter (principal); T88.3XXA Malignant hyperthermia due to anesthesia, initial encounter; Y83.8 Other surgical procedures as the cause of abnormal reaction of the patient, or of later complication, without mention of misadventure at the time of the procedure; Z79.01 Long term (current) use of anticoagulants; I74.5 Embolism and thrombosis of iliac artery; F17.200 Nicotine dependence, unspecified, uncomplicated
CPT/HCPCS: 99212; G0463

== ENCOUNTER → 2020-01-13 16:08 | Outpatient (CLI) | payer BC, SELFPAY ==
[2020-01-13 17:38] LABS: Absolute Lymphocyte Count 2.78 X10^3/uL (0.83-4.51); Absolute Neutrophil Count 4.1 X10^3/uL (2.0-7.7); Basophil# 0.09 X10^3/uL; Basophil% 1.1 % (0-1); Eosinophils% 8.3 % (0-5); Hematocrit 32.1 % (37-47); Hemoglobin 9.5 g/dL (12.0-15.0); Lymphocyte # 2.78 X10^3/ul (4.0); Mean Corp Hgb Conc 29.6 g/dL (32-36); Mean Corpuscular Volume 91.2 fL (81-99); Mean Platelet Vol. 9.6 fl (6.2-12.0); Monocyte# 0.77 X10^3/uL; Monocyte% 9.1 % (0-10); NRBC Flagged by Analyzer 0 % (0-5); Neutrophil # 4.06 X10^3/uL (2.7-7.7); Neutrophil % 48.1 % (47-70); Platelet Count 571 K/mm3 (150-450); RBC Distribution Width CV 15.2 % (11.6-14.6); RBC Distribution Width SD 50.5 fl (35.1-43.9); Red Blood Count 3.52 M/mm3 (4.2-5.4); White Blood Count 8.4 K/mm3 (4.4-11.0)
[2020-01-13 18:13] LABS: ALB/GLOB Ratio 0.9 RATIO (0.9-2.4); AST(SGOT) 17 U/L (15-37); Alanine Aminotransfer ALT/SGPT 15 U/L (13-56); Albumin, Serum 3.3 g/dL (3.2-5.0); Alkaline Phosphatase 100 U/L (45-117); Anion Gap 3 (5-15); BUN 6 mg/dL (7-18); Chloride 108 mmol/L (98-107); Creatinine, Serum 0.55 mg/dL (0.55-1.02); EST Glomerular Filtration Rate 125 mL/min (>60); Est Glom Filt Rate - Afr Amer 152 mL/min (>60); Globulin 3.6 g/dL (2.2-4.2); Glucose 102 mg/dL (74-106); Potassium 4.1 mmol/L (3.5-5.1); Protein, Total 6.9 g/dL (6.4-8.2); Sodium Level 139 mmol/L (136-145); Thyroid Stim Hormone (TSH) 0.96 uIU/mL (0.358-3.74)
== END ==
PROVIDERS: PCP Family Medicine Geriatric Medicine; Visit Provider Family Medicine Geriatric Medicine
DX: R53.83 Other fatigue (principal)
CPT/HCPCS: 36415; 80053; 84443; 85025

== ENCOUNTER → 2020-01-28 07:54 | Outpatient (CLI) | payer BC, SELFPAY ==
--- NOTE | 2020-01-28 07:58 | US_ITS ---
STUDY: ABDOMINAL ULTRASOUND - RIGHT UPPER QUADRANT REASON FOR VISIT: Female, 49 years old ELEVATED LFTS TECHNIQUE: Ultrasound evaluation of the right upper quadrant was performed with real-time and static syed-scale imaging. TECHNICAL QUALITY: Adequate. COMPARISON: None. FINDINGS: Liver: The liver measures 15 cm. There is normal echogenicity of the liver. The bile ducts are within normal limits. There is hepatic color flow. The direction of portal flow is hepatopetal. There is no demonstrated mass lesion. Gallbladder: The patient is status post cholecystectomy. Common Bile Duct (C.B.D.): The common bile duct measures 5.0 mm. Pancreas: Normal size of the head, body and tail of the pancreas. There is normal echogenicity of the pancreas. There is no demonstrated pancreatic mass or cyst. Right Kidney: Normal size of the right kidney. The right kidney measures 13.1 cm x 4.6 cm x 5.1 cm. Normal renal cortex. The right cortex measures 1.7 cm. There is no demonstrated renal mass or cyst. There is no right hydronephrosis. US/Liver IMPRESSION: Status post cholecystectomy. No acute abnormality is seen. Electronically Signed: Bandar Garcia, at 13:58 EDT , Service support ,
== END ==
PROVIDERS: PCP Family Medicine Geriatric Medicine; Referring Provider Family Medicine Geriatric Medicine; Visit Provider Family Medicine Geriatric Medicine
DX: K76.9 Liver disease, unspecified (principal)
CPT/HCPCS: 76705

== ENCOUNTER → 2020-02-23 15:15 | Outpatient (CLI) | payer BC, SELFPAY ==
[2020-02-23 16:31] LABS: Absolute Lymphocyte Count 2.21 X10^3/uL (0.83-4.51); Absolute Neutrophil Count 5.4 X10^3/uL (2.0-7.7); Basophil% 1.2 % (0-1); Eosinophil# 0.24 X10^3/uL; Eosinophils% 2.8 % (0-5); Hematocrit 34.2 % (37-47); Hemoglobin 10.1 g/dL (12.0-15.0); Lymphocyte # 2.21 X10^3/ul (4.0); Lymphocyte % 25.8 % (19-41); Mean Corp Hgb Conc 29.5 g/dL (32-36); Mean Corpuscular Hgb 24.7 pg (27.0-32.0); Mean Corpuscular Volume 83.6 fL (81-99); Mean Platelet Vol. 9.3 fl (6.2-12.0); Monocyte# 0.57 X10^3/uL; Monocyte% 6.7 % (0-10); NRBC Flagged by Analyzer 0 % (0-5); Neutrophil # 5.42 X10^3/uL (2.7-7.7); Neutrophil % 63.1 % (47-70); Platelet Count 590 K/mm3 (150-450); RBC Distribution Width CV 17.8 % (11.6-14.6); RBC Distribution Width SD 54.5 fl (35.1-43.9); Red Blood Count 4.09 M/mm3 (4.2-5.4); White Blood Count 8.6 K/mm3 (4.4-11.0)
== END ==
PROVIDERS: PCP Family Medicine Geriatric Medicine; Visit Provider Family Medicine Geriatric Medicine
DX: D50.9 Iron deficiency anemia, unspecified (principal)
CPT/HCPCS: 36415; 85025

== ENCOUNTER → 2020-03-09 16:03 | Outpatient (CLI) | payer BC, SELFPAY ==
[2020-03-09 17:13] LABS: Absolute Lymphocyte Count 2.21 X10^3/uL (0.83-4.51); Basophil# 0.11 X10^3/uL; Basophil% 1.2 % (0-1); Eosinophil# 0.21 X10^3/uL; Eosinophils% 2.3 % (0-5); Hematocrit 34.8 % (37-47); Hemoglobin 10.4 g/dL (12.0-15.0); Lymphocyte # 2.21 X10^3/ul (4.0); Mean Corp Hgb Conc 29.9 g/dL (32-36); Mean Corpuscular Hgb 24.4 pg (27.0-32.0); Mean Corpuscular Volume 81.5 fL (81-99); Mean Platelet Vol. 9.8 fl (6.2-12.0); Monocyte# 0.63 X10^3/uL; Monocyte% 6.8 % (0-10); NRBC Flagged by Analyzer 0 % (0-5); Neutrophil # 6.03 X10^3/uL (2.7-7.7); Neutrophil % 65.4 % (47-70); POSITIVE MORPHOLOGY YES; Platelet Count 474 K/mm3 (150-450); RBC Distribution Width CV 18.3 % (11.6-14.6); RET-HE 23.4 pg (30-35); Red Blood Count 4.27 M/mm3 (4.2-5.4); Reticulocyte Count 0.86 % (0.5-1.5); White Blood Count 9.2 K/mm3 (4.4-11.0)
[2020-03-09 17:15] LABS: Differential Indicated SCAN CRITERIA MET
[2020-03-09 17:51] LABS: Vitamin B12 352 pg/mL (211-911)
[2020-03-09 18:16] LABS: Ferritin 4 ng/mL (8-252); Iron 18 ug/dL (50-170); Iron Binding Capacity,Total 450 ug/dL (250-450)
[2020-03-09 18:33] LABS: Anisocytosis RARE; Microcytosis RARE; Platelet Estimate SLT INC (ADEQ); Platelet Morphology LARGE; Red Cell Morphology N CHROM NORMAL (NORM C&C); Target Cells RARE
== END ==
PROVIDERS: PCP Family Medicine Geriatric Medicine; Visit Provider Family Medicine Geriatric Medicine
DX: D64.9 Anemia, unspecified (principal)
CPT/HCPCS: 36415; 82607; 82728; 82746; 83540; 83550; 85025; 85045

== ENCOUNTER → 2020-04-04 10:58 | Outpatient (CLI) | payer BC, SELFPAY ==
[2020-04-03 11:20] VITALS: BMI 27.9
== END ==
PROVIDERS: PCP Family Medicine Geriatric Medicine; Referring Provider Family Medicine Geriatric Medicine; Visit Provider Family Medicine Geriatric Medicine
DX: R06.89 Other abnormalities of breathing (principal)
CPT/HCPCS: 87633; 87635; C9803; U0003

== ENCOUNTER → 2020-04-26 11:44 | Outpatient (CLI) | payer BC, SELFPAY ==
[2020-04-14 12:03] VITALS: BMI 27.9
[2020-04-26 13:11] LABS: Absolute Lymphocyte Count 2.78 X10^3/uL (0.83-4.51); Absolute Neutrophil Count 5.9 X10^3/uL (2.0-7.7); Eosinophil# 0.22 X10^3/uL; Eosinophils% 2.2 % (0-5); Hematocrit 40.5 % (37-47); Hemoglobin 12.2 g/dL (12.0-15.0); Lymphocyte # 2.78 X10^3/ul (4.0); Lymphocyte % 28.3 % (19-41); Mean Corp Hgb Conc 30.1 g/dL (32-36); Mean Corpuscular Hgb 24.9 pg (27.0-32.0); Mean Corpuscular Volume 82.7 fL (81-99); Mean Platelet Vol. 9.4 fl (6.2-12.0); Monocyte# 0.77 X10^3/uL; Monocyte% 7.8 % (0-10); NRBC Flagged by Analyzer 0 % (0-5); Neutrophil # 5.93 X10^3/uL (2.7-7.7); Neutrophil % 60.5 % (47-70); POSITIVE MORPHOLOGY YES; Platelet Count 476 K/mm3 (150-450); RBC Distribution Width CV 25.8 % (11.6-14.6); RBC Distribution Width SD 75.6 fl (35.1-43.9); White Blood Count 9.8 K/mm3 (4.4-11.0)
[2020-04-26 13:19] LABS: Differential Indicated SCAN CRITERIA MET
[2020-04-26 14:07] LABS: Differential Comment SCANNED; Hypochromasia 2+; Microcytosis 1+; Poikilocytosis 1+; Target Cells 1+
[2020-04-26 14:14] LABS: ALB/GLOB Ratio 1.1 RATIO (0.9-2.4); AST(SGOT) 20 U/L (15-37); Alanine Aminotransfer ALT/SGPT 24 U/L (13-56); Albumin, Serum 3.5 g/dL (3.2-5.0); Alkaline Phosphatase 79 U/L (45-117); Anion Gap 1 (5-15); BUN 9 mg/dL (7-18); BUN/Creat Ratio 14.4 RATIO (10-20); Calcium,Total 8.9 mg/dL (8.5-10.1); Chloride 110 mmol/L (98-107); Creatinine, Serum 0.62 mg/dL (0.55-1.02); EST Glomerular Filtration Rate 107 mL/min (>60); Est Glom Filt Rate - Afr Amer 130 mL/min (>60); Globulin 3.1 g/dL (2.2-4.2); Glucose 111 mg/dL (74-106); Potassium 3.6 mmol/L (3.5-5.1); Protein, Total 6.6 g/dL (6.4-8.2); Sodium Level 140 mmol/L (136-145); Thyroid Stim Hormone (TSH) 1.96 uIU/mL (0.358-3.74)
== END ==
PROVIDERS: PCP Family Medicine Geriatric Medicine; Visit Provider Family Medicine Geriatric Medicine
DX: E11.65 Type 2 diabetes mellitus with hyperglycemia (principal); R53.83 Other fatigue
CPT/HCPCS: 36415; 80053; 84443; 85025

== ENCOUNTER → 2020-05-11 16:40 | Outpatient (CLI) | payer BC, SELFPAY ==
[2020-04-14 12:03] VITALS: BMI 27.9
== END ==
PROVIDERS: PCP Family Medicine Geriatric Medicine; Referring Provider Family Medicine Geriatric Medicine; Visit Provider Family Medicine Geriatric Medicine
DX: R68.83 Chills (without fever) (principal)
CPT/HCPCS: 87633; 87635; C9803; U0003

== ENCOUNTER → 2020-07-31 13:19 | Outpatient (CLI) | payer OTHER, SELFPAY ==
[2020-07-11 13:15] VITALS: BMI 28.0
[2020-07-31 16:18] LABS: Absolute Lymphocyte Count 3.18 X10^3/uL (0.83-4.51); Absolute Neutrophil Count 9.5 X10^3/uL (2.0-7.7); Basophil# 0.09 X10^3/uL; Basophil% 0.6 % (0-1); Eosinophil# 0.19 X10^3/uL; Eosinophils% 1.4 % (0-5); Hematocrit 44.3 % (37-47); Hemoglobin 14.3 g/dL (12.0-15.0); Lymphocyte # 3.18 X10^3/ul (4.0); Lymphocyte % 22.8 % (19-41); Mean Corp Hgb Conc 32.3 g/dL (32-36); Mean Corpuscular Hgb 29.7 pg (27.0-32.0); Mean Corpuscular Volume 91.9 fL (81-99); Mean Platelet Vol. 9.9 fl (6.2-12.0); Monocyte# 0.93 X10^3/uL; Monocyte% 6.7 % (0-10); NRBC Flagged by Analyzer 0 % (0-5); Neutrophil # 9.47 X10^3/uL (2.7-7.7); Platelet Count 448 K/mm3 (150-450); RBC Distribution Width CV 16.2 % (11.6-14.6); RBC Distribution Width SD 54.9 fl (35.1-43.9); Red Blood Count 4.82 M/mm3 (4.2-5.4); White Blood Count 13.9 K/mm3 (4.4-11.0)
[2020-07-31 16:47] LABS: AST(SGOT) 21 U/L (15-37); Alanine Aminotransfer ALT/SGPT 27 U/L (13-56); Albumin, Serum 3.4 g/dL (3.2-5.0); Alkaline Phosphatase 74 U/L (45-117); Anion Gap 7 (5-15); BUN 10 mg/dL (7-18); BUN/Creat Ratio 15.6 RATIO (10-20); Chloride 104 mmol/L (98-107); Creatinine, Serum 0.64 mg/dL (0.55-1.02); EST Glomerular Filtration Rate 104 mL/min (>60); Est Glom Filt Rate - Afr Amer 126 mL/min (>60); Globulin 3.4 g/dL (2.2-4.2); Glucose 139 mg/dL (74-106); Potassium 3.8 mmol/L (3.5-5.1); Protein, Total 6.8 g/dL (6.4-8.2); Sodium Level 140 mmol/L (136-145); Thyroid Stim Hormone (TSH) 1.34 uIU/mL (0.358-3.74)
== END ==
PROVIDERS: PCP Family Medicine Geriatric Medicine; Visit Provider Family Medicine Geriatric Medicine
DX: E11.65 Type 2 diabetes mellitus with hyperglycemia (principal); R53.83 Other fatigue
CPT/HCPCS: 36415; 80053; 84443; 85025

== ENCOUNTER 2020-10-10 02:27 | Emergency (ER) | payer OTHER, SELFPAY ==
[2020-07-11 13:15] VITALS: BMI 28.0
[2020-10-10 02:28] VITALS: BP 136/85; PULSE 76; RESP 18; TEMP 36.4; O2SAT 100; BMI 30.9
--- NOTE | 2020-10-10 03:00 | RAD_ITS ---
STUDY: X-RAY - LEFT ANKLE REASON FOR EXAM: Female, 50 years old. pain and swelling to left ankle. nki. TECHNIQUE: 3 view(s) of the ankle. COMPARISON: None. FINDINGS: Normal visualized distal tibia and fibula. Normal medial and lateral malleoli. Normal tibiotalar articulation and ankle mortise. Normal visualized talus and calcaneus. The visualized subtalar, talonavicular, calcaneocuboid and tarsal articulations are normal. The soft tissue structures are unremarkable. RAD/Ankle min 3 Views IMPRESSION: Normal x-ray examination of the ankle. Electronically Signed: Clint Guillermo DO at 3:50 EDT Tel , Service support ,
--- NOTE | 2020-10-10 03:05 | ED.VIS.LOWEX ---
HPI History of Present Illness Chief Complaint: Lower Extremity Injury Narrative Narrative: Patient noted left ankle pain at work. She is unsure if the injury happened at work or at home she was standing up and became difficult to stand up and put pressure on that ankle. She noticed a small bruise. She has no calf pain she has no lower extremity edema. No other injuries. [facility] Medical History (Updated 10/10/20 @ 04:[address] Todd Sage MD) Aortic thromboembolism Diabetes mellitus Leukocytosis Home Medications metformin 1,000 mg PO BID 02/28/14 [History Last Taken 11/26/19 16:00] atorvastatin 80 mg PO QHS 11/26/19 [History Last Taken 11/25/19] clopidogrel 75 mg PO DAILY 12/14/19 [History Last Taken Unknown] warfarin 7 mg PO DAILY 12/14/19 [History Last Taken Unknown] aspirin 81 mg PO DAILY 04/03/20 [History Last Taken Unknown] biotin 5,000 mcg PO DAILY 04/03/20 [History Last Taken Unknown] pantoprazole 40 mg PO DAILY 04/03/20 [History Last Taken Unknown] Allergy/AdvReac Type Severity Reaction Status Date / Time Penicillins [PCN] Allergy Hives Verified 07/11/20 13:11 Family History Brother Diabetes Father Diabetes Mother Diabetes Uncle Diabetes Skin cancer Colon cancer Uncle Diabetes Aunt Breast cancer Surgical History H/O lithotripsy H/O tubal ligation Hx of cholecystectomy Social History Smoking Status: Current every day smoker ROS ROS ED ROS Narrative Past medical history: Hypertension, diabetes, history of CVA, GERD Medications: Reviewed Social history: Noncontributory Review of systems: Musculoskeletal: Left ankle pain Skin: No abrasions or lacerations Neurological: No weakness or paresthesias Hematologic: She is prone to easy bruising and bleeding secondary to Coumadin. EXAM Physical Exam Narrative Exam Narrative: Physical exam General: Patient does not appear in significant distress . Head: Normocephalic, Atraumatic Neck: No C-spine tenderness Cardiovascular: Regular rate, Regular rhythm Respiratory: No distress, CTA bilaterally Back: Nontender, Normal Inspection. Extremities: Left ankle shows tenderness just above the lateral malleolus, there is a contusion in that region. No ankle effusion, ankle is stable no foot pain or proximal fibular pain. Skin: No abrasions, no lacerations, otherwise contusion as above Neurological: Normal strength and sensation Const Vital Signs: 10/10/20 02:28 Temperature 97.5 F L Temperature Source Temporal Pulse Rate 76 Respiratory Rate 18 Blood Pressure 136/85 H Blood Pressure Mean 102 Pulse Ox 100 Oxygen Delivery Method Room Air MDM MDM MDM Narrative Medical decision making narrative: Patient has a normal x-ray, INR is within normal limits she appears well she likely has an ankle sprain I will discharge in stable condition with an Aircast. Lab Data Labs: Laboratory Results - last 24 hr 10/10/20 03:17 PT 23.1 H INR 2.1 Radiography Diagnostic Testing: Radiology Impression Ankle X-Ray 10/10/20 03:00 IMPRESSION: Normal x-ray examination of the ankle. Electronically Signed: Clint Guillermo DO at 3:50 EDT Tel , Service support , Ankle x-ray read by myself and the radiologist does not show any fracture. Normal alignment. Discharge Plan Triage Chief Complaint: Lower Extremity Injury ED Provider: Todd Sage Dx/Rx/DC Orders Clinical Impression: Ankle sprain Instructions: ED Ankle Sprain (Adult) Prescriptions: No Action metformin 500 MG tablet 1,000 mg PO BID RF: 0 atorvastatin 40 MG tablet 80 mg PO QHS RF: 0 clopidogrel 75 MG tablet 75 mg PO DAILY RF: 0 warfarin 5 MG tablet 7 mg PO DAILY RF: 0 aspirin 81 MG tablet,delayed release (DR/EC) 81 mg PO DAILY RF: 0 pantoprazole 40 MG tablet 40 mg PO DAILY RF: 0 biotin 5,000 MCG tablet,disintegrating 5,000 mcg PO DAILY RF: 0 Primary Care Provider: Shashank Tai Chi Referrals: Shashank Tai Chi, MD [Primary Care Provider] - 3-5 Days Disposition Disposition: Home, self care
[2020-10-10 03:47] LABS: International Normalized Ratio 2.1; Prothrombin Time (Protime)PT. 23.1 SECONDS (11.7-14.9)
[2020-10-10 04:32] VITALS: PULSE 72; RESP 18; O2SAT 98
== END 2020-10-10 04:32 | disposition home or self-care (01) ==
PROVIDERS: Emergency Provider Emergency Medicine; PCP Family Medicine Geriatric Medicine
DX: S93.402A Sprain of unspecified ligament of left ankle, initial encounter (principal); X58.XXXA Exposure to other specified factors, initial encounter; Y93.9 Activity, unspecified; Y92.9 Unspecified place or not applicable; Y99.9 Unspecified external cause status; I10 Essential (primary) hypertension; E11.9 Type 2 diabetes mellitus without complications; K21.9 Gastro-esophageal reflux disease without esophagitis; F17.200 Nicotine dependence, unspecified, uncomplicated; Z79.01 Long term (current) use of anticoagulants; Z79.84 Long term (current) use of oral hypoglycemic drugs; Z79.82 Long term (current) use of aspirin; Z79.899 Other long term (current) drug therapy; Z86.73 Personal history of transient ischemic attack (TIA), and cerebral infarction without residual deficits
CPT/HCPCS: 73610; 85610; 99283

== ENCOUNTER → 2020-10-25 11:46 | Outpatient (CLI) | payer OTHER, SELFPAY ==
[2020-10-25 12:14] LABS: Absolute Lymphocyte Count 2.93 X10^3/uL (0.83-4.51); Absolute Neutrophil Count 10.8 X10^3/uL (2.0-7.7); Basophil# 0.11 X10^3/uL; Basophil% 0.7 % (0-1); Eosinophil# 0.28 X10^3/uL; Eosinophils% 1.8 % (0-5); Hematocrit 40.4 % (37-47); Hemoglobin 13.7 g/dL (12.0-15.0); Lymphocyte # 2.93 X10^3/ul (0.83-4.51); Lymphocyte % 19.3 % (19-41); Mean Corp Hgb Conc 33.9 g/dL (32-36); Mean Corpuscular Volume 91.4 fL (81-99); Mean Platelet Vol. 9.8 fl (6.2-12.0); Monocyte# 0.99 X10^3/uL; Monocyte% 6.5 % (0-10); NRBC Flagged by Analyzer 0 % (0-5); Neutrophil # 10.82 X10^3/uL (2.7-7.7); Neutrophil % 71.4 % (47-70); Platelet Count 417 K/mm3 (150-450); RBC Distribution Width CV 13.9 % (11.6-14.6); RBC Distribution Width SD 46.9 fl (35.1-43.9); Red Blood Count 4.42 M/mm3 (4.2-5.4); White Blood Count 15.2 K/mm3 (4.4-11.0)
[2020-10-25 12:57] LABS: AST(SGOT) 19 U/L (15-37); Alanine Aminotransfer ALT/SGPT 23 U/L (13-56); Albumin, Serum 3.3 g/dL (3.2-5.0); Alkaline Phosphatase 74 U/L (45-117); Anion Gap 6 (5-15); BUN 18 mg/dL (7-18); BUN/Creat Ratio 30.9 RATIO (10-20); Calcium,Total 8.9 mg/dL (8.5-10.1); Chloride 107 mmol/L (98-107); Creatinine, Serum 0.58 mg/dL (0.55-1.02); EST Glomerular Filtration Rate 116 mL/min (>60); Est Glom Filt Rate - Afr Amer 140 mL/min (>60); Globulin 3.2 g/dL (2.2-4.2); Glucose 84 mg/dL (74-106); Potassium 3.8 mmol/L (3.5-5.1); Protein, Total 6.5 g/dL (6.4-8.2); Sodium Level 139 mmol/L (136-145); Thyroid Stim Hormone (TSH) 1.94 uIU/mL (0.358-3.74)
== END ==
PROVIDERS: PCP Family Medicine Geriatric Medicine; Visit Provider Family Medicine Geriatric Medicine
DX: E11.65 Type 2 diabetes mellitus with hyperglycemia (principal); R53.83 Other fatigue
CPT/HCPCS: 36415; 80053; 84443; 85025

== ENCOUNTER → 2020-11-13 | Outpatient (CLI) | payer OTHER, SELFPAY ==
--- NOTE | 2020-11-13 | EMB_PTH ---
PATIENT: ROGERIO KIRKLAND LOC: [facility] U#:[id number] AGE/SX: 50/F ROOM: RE11/13/[address]: ANA Bro : 1970 BED: DIS: 11/13/2020 SPEC #: [id number] RECD: 11/13/20 12:20 STATUS: KEI REQ #: [id number] VICKY: 11/13/20 00:[address]: Penelope Marte NP DEPT: SURGICAL PATHOLOGY RECD BY: Jese Damian ENTERED: 11/14/20 05:45 SP TYPE: ENDOM BX/C LYDIA DR: Dr. Shashank Tai MD Tissues: Endometrium, NOS Procedures: Surgery Specimen Level IV HEADER OPERATION: Endometrial biopsy PRE-OP DIAGNOSIS: PMB TISSUE SUBMITTED: Endometrial biopsy MICROSCOPIC DIAGNOSIS Endometrial biopsy: Proliferative endometrium and blood clot. See comment. SHABNAM:malgorzata 11/14/2020 COMMENT The specimen predominantly consists of blood clots. Correlation with clinical findings and appropriate follow up are necessary. MICROSCOPIC DESCRIPTION Slides are reviewed. GROSS DESCRIPTION Received is one container labeled with the patient's name and not further designated. The specimen consists of multiple fragments of hemorrhagic soft tissue that in aggregate measure 3 x 2.5 x 0.3 cm. The specimen is totally submitted in one cassette. / SJ:malgorzata 11/13/20 TC:5 [facility]: [id number]
[2020-11-17 08:04] LABS: HPV APTIMA, High Risk Negative (Negative)
== END | disposition home or self-care (01) ==
LOC: LABSPEC 12:33
PROVIDERS: PCP Family Medicine Geriatric Medicine; Referring Provider Nurse Practitioner Women's Health; Visit Provider Nurse Practitioner Women's Health
DX: Z12.4 Encounter for screening for malignant neoplasm of cervix (principal); N95.0 Postmenopausal bleeding
CPT/HCPCS: 87624; 88175; 88305; G0145

== ENCOUNTER → 2020-11-20 08:42 | Outpatient (CLI) | payer OTHER, SELFPAY ==
--- NOTE | 2020-11-20 08:47 | US_ITS ---
STUDY: ULTRASOUND TRANSVAGINAL CLINICAL: Female, 50 years old. abnl bleeding TECHNIQUE: Transvaginal COMPARISON: None. FINDINGS: Normal uterine size measuring 6.7 x 3.8 x 3.5 cm in maximal craniocaudal dimension. There are no myometrial masses or fibroids however the heterogeneous appearance of the uterus raises the possibility of adenomyosis. Normal endometrial thickness measuring 1.6 mm. There are no endometrial masses, and there is no fluid in the endometrial cavity. Normal uterine cervix. Normal right ovary, measuring 1.4 x 2.1 x 2 cm. Normal left ovary, measuring 1.5 x 1.6 x 2.1 cm. There are multiple follicles without a dominant cyst. There is no free fluid in the pelvis. Polycystic ovary disease: No. US/Transvaginal Non- IMPRESSION: Heterogeneous uterus raises the possibility of adenomyosis please correlate clinically. Electronically Signed: Rehan Mitchell, at 14:16 EDT Tel , Service support ,
--- NOTE | 2020-11-20 08:47 | BI_ITS ---
MAMMOGRAPHY - BILATERAL SCREENING 3-D TOMOSYNTHESIS REASON FOR EXAM: Female, 50 years old. screening for breast cancer PERTINENT HISTORY: No significant family history. TECHNIQUE: 2-D mammograms and 3-D Tomosynthesis of the breast (s) were performed. CAD was performed. COMPARISON: 04/05/2019 FINDINGS: The breast composition is fatty Scattered benign calcifications are seen. No dense spiculated masses or suspicious microcalcifications are identified. No architectural distortion is identified. There is no skin thickening or retraction. There has been no significant change since the prior study of 04/05/2019 BI/SCRN MAMM (CAD)W/CARLA BILAT IMPRESSION: No mammographic signs of malignancy. Routine yearly mammograms recommended. ASSESSMENT CATEGORY: BIRADS Category 1: Negative. A letter regarding these results will be sent to the patient by the facility within 30 days. FOLLOW UP RECOMMENDATION: Yearly follow up mammogram recommended. (A) Approximately 10% of breast cancers are not detected by mammography. A normal mammogram should not delay biopsy of a clinically suspicious abnormality. Electronically Signed: Rehan Mitchell, at 12:50 EDT Tel , Service support ,
== END ==
LOC: OPUS 08:42
PROVIDERS: PCP Family Medicine Geriatric Medicine; Referring Provider Nurse Practitioner Women's Health; Visit Provider Nurse Practitioner Women's Health
DX: Z12.31 Encounter for screening mammogram for malignant neoplasm of breast (principal); N92.1 Excessive and frequent menstruation with irregular cycle
CPT/HCPCS: 76830; 77063; 77067

== ENCOUNTER 2020-12-18 06:45 | Day surgery (SDC) | payer OTHER, SELFPAY ==
--- NOTE | 2020-12-18 06:50 | HP.PCM_ITS ---
HPI - General HPI Narrative ROGERIO KIRKLAND, is a 50 F who presents for EGD and colonoscopy. Patient states she has some lower abdominal pain which comes and goes and also has a lot of flatulence she has had for a little bit. Patient states she has bowel once daily denies any blood does not feel like she is completely empty. Patient has been taking Colace twice daily with no change per patient patient has take some laxatives but then she will get diarrhea and then go back to her normal pattern. Patient states that she has been on Protonix as her initial medication for reflux stop working and she got the burning of her esophagus again. Patient states she only occasionally has reflux symptoms on the medication. Patient states her last EGD was early . Patient's never had a colonoscopy. Patient denies any immediate family history of colon cancer. Patient does have paternal uncle that was diagnosed when he was 68. 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 12/04/2019. Patient is on aspirin, Plavix and Coumadin with INR goal of 2-3?Coumadin is held for procedure, aspirin and Plavix have been continued. Patient is recommended to be on Coumadin lifelong. Patient was also encouraged to stop smoking. [facility] Medical History (Updated 12/18/20 @ 07:[address] 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 Bruising Chronic cough Contraceptive management Depression Diabetes mellitus DVT (deep venous thrombosis) Easy bruising Excessive bleeding Gastric reflux History of echocardiogram Injury of head and neck Leg cramps Leukocytosis Menorrhagia with irregular cycle Smoker Wears dentures Wears glasses Home Medications metformin 1,000 mg PO BID 02/28/14 [History Last Taken 11/26/19 16:00] atorvastatin 80 mg PO QHS 11/26/19 [History Last Taken 11/25/19] clopidogrel 75 mg PO DAILY 12/14/19 [History Last Taken Unknown] warfarin 6 mg PO DAILY 12/14/19 [History Last Taken 12/10/20] aspirin 81 mg PO DAILY 04/03/20 [History Last Taken Unknown] biotin 5,000 mcg PO DAILY 04/03/20 [History Last Taken Unknown] pantoprazole 40 mg PO DAILY 04/03/20 [History Last Taken Unknown] doxepin 10 mg PO PRN PRN 12/14/20 [History Last Taken Unknown] escitalopram oxalate [Lexapro] 20 mg PO DAILY 12/14/20 [History Last Taken Unknown] lisinopril 2.5 mg PO DAILY 12/14/20 [History Last Taken Unknown] sennosides-docusate sodium [Senexon-S] 1 tab PO BID 12/14/20 [History Last Taken Unknown] Allergy/AdvReac Type Severity Reaction Status Date / Time latex Allergy Mild rash Verified 12/14/20 13:40 Penicillins [PCN] Allergy Hives Verified 12/14/20 13:40 Family History Brother Diabetes Father Diabetes Mother Diabetes Uncle Diabetes Skin cancer Colon cancer Uncle Diabetes Aunt Breast cancer Surgical History (Updated 12/14/20 @ 13:59 by Rosa Chavarria) H/O lithotripsy H/O tubal ligation History of embolectomy Hx of cholecystectomy Hx of partial nephrectomy Social History (Updated 11/13/20 @ 10:19 by Mary Pearce) household members: family current occupational status: employed current occupation: [employer] history of recent travel: No sexually active: No Smoking Status: Current every day smoker tobacco type: cigarettes alcohol intake: never substance use type: does not use what type of physical activity do you participate in: other seatbelt use: always do you feel safe at home: Yes additional social history: single Past Medical/Surgical History Planned Operation Planned Operative Procedure/s: COLONOSCOPY, EGD Previous Hospitalizations/Surgeries HX Hospitalizations: No HX of Surgeries: cholecystectomy, tubal ligation, kidney stone Any Problems With Anesthesia: No You/Your Family Experience Fever (Hyperthermia) With Anes: No Cholinesterase deficiency: No Cardiovascular Hx Chest Pain within Last 2 months: No Hx of Irregular Heartbeat and/or Afib: No Hx Heart Attack: No Hx Hypertension: No Hx Cardiac Catheterization: Yes What facility was last heart cath performed: unsure Date of last Heart Cath: unsure Hx Cardiac Surgery/Stents/Etc.: No Hx Pain in Legs when Walking/Leg Cramps: Yes Respiratory Hx Chronic Obstructive Pulmonary Disease (COPD): No Hx Emphysema: No Hx Sleep Apnea: No Hx Respiratory Tract Infection/Cold (presently): No Do You Snore Loudly (louder than talking or can be heard): Yes Do You Often Feel Tired/ Fatigued/ Sleepy Dring Daytime?: No Has Anyone Observed You Stop Breathing During Sleep?: No Result (for STOP score): Negative Hx Smoking: Yes Smoking Status: Current every day smoker Gastrointestinal Hx Gastrointestinal Bleed: No Hx Ulcer: No Difficulty Chewing/Swallowing: No (passed dysphagia screen, GUIDE ESCORT consulted) Hx Unplanned Weight Loss of 20#: Yes Neurological Hx Seizures: No Hx Transient Ischemic Attacks (TIA): No Hx Multiple Sclerosis: No Hx Parkinson's Disease: No Does patient have nerve stimulator: No Blood Disorder Hx Deep Vein Thrombosis: No Hx High Cholesterol: Yes Hx Hepatitis: No Hx Cirrhosis: No Hx Anemia: No Hx Blood Disorders: No Reproduction : No Genitourinary Hx Renal Disease: No Hx Dialysis: No Musculoskeletal Hx Arthritis: Yes Hx Rheumatoid Arthritis: No Endocrine Hx Diabetes: Yes Thyroid Disease: No Psycho/Social Hx Substance Use: No Hx Alcohol Use: No Hx Anxiety: Yes Hx Depression: Yes Hx Dementia: No Miscellaneous Hx Cancer: No Allergies latex Allergy (Mild, Verified 12/14/20 13:40) rash Penicillins [PCN] Allergy (Verified 12/14/20 13:40) Hives Maternal: Family History Brother Diabetes Father Diabetes Mother Diabetes Uncle Diabetes Skin cancer Colon cancer Uncle Diabetes Aunt Breast cancer Cancer (Breast), Diabetes and Heart Disease Paternal: Family History Brother Diabetes Father Diabetes Mother Diabetes Uncle Diabetes Skin cancer Colon cancer Uncle Diabetes Aunt Breast cancer Cancer (Breast and colon), Diabetes and Heart Disease Discharge Is Pt Admitted From a Halfway, or a Skilled Nursing: No After D/C, Where Do you Plan to Go: Return Home Vital Signs Vital Signs Vital Signs: Weight Body Mass Index (BMI) 30.0 Physical Exam Const alert, oriented x3 and no apparent distress HEENT normocephalic and head/scalp atraumatic Resp normal respiratory effort Cardio regular rate GI soft to palpation and non-tender; Negative for non-distended Palpation: Negative for guarding Extremity no clubbing, cyanosis or edema Neuro CN's II-XII intact bilaterally Psych mental status grossly normal Assessment & Plan Assessment/Plan (1) Lower abdominal pain: (2) GERD (gastroesophageal reflux disease): Procedure Criteria Type of Procedure Procedure Type: Elective Elective Risks - COVID COVID Risk Discussion: The surgeon/proceduralist and patient have discussed in detail the risk of exposure to and/or potential harm posed by the COVID-19 virus with having a surgery/procedure at this time versus the risk of delaying the surgery/procedure. It is not possible to know either the risk of delaying the surgery or procedure or chance of getting an infection with perfect accuracy, but a joint decision was made between the patient and the surgeon/proceduralist to proceed at this time with the scheduled surgery/procedure as indicated on the consent form. Surgery Risks - Colonoscopy Risks Include but are not Limited To: Risks include but are not limited to: Bleeding, perforation requiring further surgery, inability to complete colonoscopy requiring barium enema.
[2020-12-18 07:18] VITALS: BP 123/67; PULSE 60; RESP 14; TEMP 35.9; O2SAT 99; BMI 29.6
[2020-12-18] MEDS: Lactated Ringers 1,000 ML 100 ML IV (07:35)
[2020-12-18 07:40] LABS: Bedside Glucose 215 mg/dL (70-110)
--- NOTE | 2020-12-18 07:45 | IMM_PTH ---
PATIENT: ROGERIO KIRKLAND LOC: [facility] [place] U#:[id number] AGE/SX: 50/F ROOM: RE12/18/[address]: Dr. Marian Hager MD : 1970 BED: DIS: 12/18/2020 SPEC #: [id number] RECD: 12/18/20 14:36 STATUS: KEI REQ #: [id number] VICKY: 12/18/20 07:[address]: Marian Hager DEPT: IMMUNOHISTOCHEMISTRY RECD BY: Liliya Haynes ENTERED: 12/18/20 14:37 SP TYPE: IMMUNO OTHR DR: Dr. Shashank Tia MD Tissues: A - Stomach, NOS B - Gastric mucous membrane Procedures: H Pylori (initial) P53 (add) KI-67 (initial) PHYSICIAN & INSTITUTION [facility] [id number] SPECIMEN INFORMATION: Tissue Source: A ? Antrum biopsy, B ? GE junction biopsy Clinical Info: Lower abdominal pain, GERD Specimen Number: [id number] A & B CPT code: 27766 x2, 25427 METHODOLOGY: Deparaffinized sections of prefer/formalin-fixed tissue or PAP/DQ stained slides are incubated with monoclonal/polyclonal antibodies/oligonucleotide probes. Localization is made via biotin free immunoperoxidase method. Appropriate controls are performed and reacted as expected. Results on target cell population are indicated in the following table: RESULTS: ANTIBODY / CLONE RESULT Block A H Pylori (polyclonal) negative Block B P53 (DO-7) negative Ki-67 (30-9) positive, low These tests were developed and their performance characteristics determined by [facility]. They may not have been cleared or approved by the U.S. Food and Drug Administration. The FDA has determined that such clearance or approval is not necessary. The above immunohistochemical/dualISH markers are ordered and reviewed by the pathologist. INTERPRETATION: A. Antrum biopsy: Negative for Helicobacter pylori organisms. B. Gastroesophageal junction, biopsy: No evidence of dysplasia. AM:malgorzata 12/20/2020
--- NOTE | 2020-12-18 07:45 | EGD_PTH ---
PATIENT: ROGERIO KIRKLAND LOC: [facility] [place] U#:[id number] AGE/SX: 50/F ROOM: RE12/18/[address]: Dr. Marian Hager MD : 1970 BED: DIS: 12/18/2020 SPEC #: [id number] RECD: 12/18/20 10:09 STATUS: KEI RERandall #: [id number] VICKY: 12/18/20 07:[address]: Marian Hager DEPT: SURGICAL PATHOLOGY RECD BY: Bella Sanford ENTERED: 12/18/20 13:29 SP TYPE: EGD BIOPSY OT DR: Dr. Shashank Tai MD Tissues: A - Gastric mucous membrane B - Gastric mucous membrane C - Ascending colon D - Transverse colon E - SPLENIC FLEXURE F - Descending colon Procedures: Special Stain Group II Surgery Specimen Level IV Alcian Blue/PAS (control) HEADER OPERATION: Colonoscopy, EGD ([facility]) PRE-OP DIAGNOSIS: Lower abdominal pain; GERD TISSUE SUBMITTED: A - Antrum biopsy for H. pylori and path, B - GE junction biopsy, C - Ascending polyp, D - Transverse colon polyp, E - Splenic flexure polyp, F - Descending polyp MICROSCOPIC DIAGNOSIS A. Gastric antrum, biopsy: Minimal chronic inflammation. See comment. B. 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 Chronic inflammation. No evidence of dysplasia. See comment. C. Ascending colon polyp, biopsy: Fragments of tubular adenoma. D. Transverse colon polyp, biopsy: Fragments of tubular adenoma. E. Colonic polyp at splenic flexure, biopsy: Fragments of tubular adenoma. F. Descending colon polyp, biopsy: Tubular adenoma. AM:malgorzata 12/19/2020 COMMENT A. The results of immunohistochemistry for Helicobacter pylori will be reported separately ([id number]). B. Immunohistochemistry ([id number]) supports the above diagnosis. Alcian blue/PAS stain with matched control supports the above diagnosis. MICROSCOPIC DESCRIPTION Slides are reviewed. GROSS DESCRIPTION A - Received in fixative is one container labeled with the patient's name and designated gastric antrum biopsy. The specimen consists of one irregular fragment of light negro soft tissue that measures 0.3 x 0.3 x 0.1 cm. The specimen is totally submitted in one cassette. B - Received in fixative is one container labeled with the patient's name and designated GE junction biopsy. The specimen consists of one irregular fragment of light negro soft tissue that measures 0.3 x 0.1 x 0.1 cm. The specimen is totally submitted in one cassette. C - Received in fixative is one container labeled with the patient's name and designated ascending colon polyp. The specimen consists of multiple irregular fragments of light negro soft tissue that in aggregate measure 0.7 x 0.5 x 0.1 cm. The specimen is totally submitted in one cassette. D - Received in fixative is one container labeled with the patient's name and designated transverse colon polyp. The specimen consists of multiple irregular fragments of light negro soft tissue that in aggregate measure 1.5 x 1 x 0.1 cm. The specimen is totally submitted in one cassette. E - Received in fixative is one container labeled with the patient's name and designated splenic flexure polyp. The specimen consists of three irregular fragments of light negro soft tissue that in aggregate measure 2 x 1 x 0.2 cm. The specimen is totally submitted in one cassette. F - Received in fixative is one container labeled with the patient's name and designated descending polyp. The specimen consists of two irregular fragments of light negro soft tissue that in aggregate measure 0.6 x 0.3 x 0.1 cm. The specimen is totally submitted in one cassette. / AM:malgorzata 12/18/20 TC:5 CPT: 35800 x6, 22926
[2020-12-18 07:55] LABS: INR Fingerstick 0.9
[2020-12-18 08:55] VITALS: BP 123/67; BP 99/73; PULSE 71; RESP 16; O2SAT 98
[2020-12-18 08:59] VITALS: BP 101/65; BP 123/67; PULSE 69; RESP 16; TEMP 36.4; O2SAT 97
[2020-12-18 09:00] VITALS: BP 106/59; BP 123/67; PULSE 70; RESP 16; O2SAT 100
[2020-12-18 09:05] VITALS: BP 101/59; BP 123/67; PULSE 62; RESP 16; TEMP 36.1; O2SAT 99
[2020-12-18 09:35] VITALS: BP 123/67
--- NOTE | 2020-12-18 13:21 | OP.CCLET_ITS ---
12/18/2020 Shashank Tai MD [address] [place] [address] Re : Upper GI endoscopy procedure for Shona Phuc Dear Dr. Tai This procedure was performed on Friday, December 18, 2020. My impressions and recommendations are as follows: Impressions : - Ashton-colored mucosa. Biopsied. - Z-line irregular. - Erythematous mucosa in the antrum and prepyloric region of the stomach. Biopsied. - Normal examined duodenum. - Small hiatal hernia. Recommendations : - Await pathology results. - Discharge patient to home. - Resume previous diet. - Continue present medications. - Use sucralfate tablets 1 gram PO QID. My findings are described in the full procedure note, which is enclosed. If I can be of further assistance, please feel free to contact me at Doctor phone number(s): , Work: . Sincerely, MD Marian Moreno MD 12/18/2020 8:50:40 AM This report has been signed electronically.
--- NOTE | 2020-12-18 13:21 | OP.CCLET_ITS ---
12/18/2020 Shashank Tai MD [address] [place] [address] Re : Colonoscopy procedure for Shona Phuc Dear Dr. Tai This procedure was performed on Friday, December 18, 2020. My impressions and recommendations are as follows: Impressions : - Hemorrhoids found on perianal exam. - Six 3 to 6 mm polyps in the descending colon, at the splenic flexure, in the transverse colon and in the ascending colon, removed with a hot snare. Resected and retrieved. - The examination was otherwise normal. Recommendations : - Discharge patient to home. - Resume previous diet. - Continue present medications. - Await pathology results. - Repeat colonoscopy 2-3 years for surveillance based on pathology results. My findings are described in the full procedure note, which is enclosed. If I can be of further assistance, please feel free to contact me at Doctor phone number(s): , Work: . Sincerely, MD Marian Moreno MD 12/18/2020 8:57:35 AM This report has been signed electronically.
--- NOTE | 2020-12-18 13:21 | OP.COLON_ITS ---
Patient Name: Shona Friend Procedure Date: 12/18/2020 8:00 AM Date of : 1970 Age: 50 Procedure: Colonoscopy Indications: Lower abdominal pain Providers: Marian Hager MD Medicines: Monitored Anesthesia Care Patient Profile: This is a 50 year old female. Last Colonoscopy: none. The patient's first colonoscopy is today. Complications: No immediate complications. Procedure: Pre-Anesthesia Assessment: - Prior to the procedure, a History and Physical was performed, and patient medications and allergies were reviewed. The patient's tolerance of previous anesthesia was also reviewed. The risks and benefits of the procedure and the sedation options and risks were discussed with the patient. All questions were answered, and informed consent was obtained. Prior Anticoagulants: The patient has taken Plavix (clopidogrel), last dose was 1 day prior to procedure. ASA Grade Assessment: Per anesthesia. After reviewing the risks and benefits, the patient was deemed in satisfactory condition to undergo the procedure. After I obtained informed consent, the scope was passed under direct vision. Throughout the procedure, the patient's blood pressure, pulse, and oxygen saturations were monitored continuously. The pediatric colonoscope was introduced through the anus and advanced to the cecum, identified by the appendiceal orifice, ileocecal valve and palpation. The colonoscopy was performed without difficulty. The patient tolerated the procedure well. The quality of the bowel preparation was good. Scope In: 8:01:26 AM Scope Withdrawal Time 0 hours 31 minutes 45 seconds Scope Out: 8:44:05 AM Total Procedure Duration Time 0 hours 42 minutes 39 seconds Findings: Hemorrhoids were found on perianal exam. Six semi-sessile polyps were found in the descending colon, splenic flexure, transverse colon and ascending colon. The polyps were 3 to 6 mm in size. These polyps were removed with a hot snare. Resection and retrieval were complete. The exam was otherwise without abnormality. Impression: - Hemorrhoids found on perianal exam. - Six 3 to 6 mm polyps in the descending colon, at the splenic flexure, in the transverse colon and in the ascending colon, removed with a hot snare. Resected and retrieved. - The examination was otherwise normal. Recommendation: - Discharge patient to home. - Resume previous diet. - Continue present medications. - Await pathology results. - Repeat colonoscopy 2-3 years for surveillance based on pathology results. Procedure Code(s): --- Professional --- 10878, Colonoscopy, flexible; with removal of tumor(s), polyp(s), or other lesion(s) by snare technique Diagnosis Code(s): --- Professional --- K64.9, Unspecified hemorrhoids D12.4, Benign neoplasm of descending colon D12.3, Benign neoplasm of transverse colon (hepatic flexure or splenic flexure) D12.2, Benign neoplasm of ascending colon R10.30, Lower abdominal pain, unspecified CPT copyright 2017 [employer]. All rights reserved. The codes documented in this report are preliminary and upon remote medical coder review may be revised to meet current compliance requirements. MD Marian Moreno MD 12/18/2020 8:57:35 AM This report has been signed electronically. Number of Addenda: 0 Note Initiated On: 12/18/2020 8:00 AM
--- NOTE | 2020-12-18 13:21 | OP.EGD_ITS ---
Patient Name: Shona Friend Procedure Date: 12/18/2020 7:41 AM Date of : 1970 Age: 50 Procedure: Upper GI endoscopy Indications: Suspected gastro-esophageal reflux disease Providers: Marian Hager MD Medicines: Monitored Anesthesia Care Patient Profile: This is a 50 year old female. Complications: No immediate complications. Procedure: Pre-Anesthesia Assessment: - Prior to the procedure, a History and Physical was performed, and patient medications and allergies were reviewed. The patient's tolerance of previous anesthesia was also reviewed. The risks and benefits of the procedure and the sedation options and risks were discussed with the patient. All questions were answered, and informed consent was obtained. Prior Anticoagulants: The patient has taken Plavix (clopidogrel), last dose was 1 day prior to procedure. ASA Grade Assessment: Per anesthesia. After reviewing the risks and benefits, the patient was deemed in satisfactory condition to undergo the procedure. After obtaining informed consent, the endoscope was passed under direct vision. Throughout the procedure, the patient's blood pressure, pulse, and oxygen saturations were monitored continuously. The gastroscope was introduced through the mouth, and advanced to the second part of duodenum. The upper GI endoscopy was accomplished without difficulty. The patient tolerated the procedure well. Scope In: 7:50:39 AM Scope Out: 7:57:09 AM Total Procedure Duration Time 0 hours 6 minutes 30 seconds Findings: Two tongues of salmon-colored mucosa were present. The maximum longitudinal extent of these esophageal mucosal changes was 2 cm in length. Biopsies were taken with a cold forceps for histology. The Z-line was irregular. Striped moderately erythematous mucosa without bleeding was found in the gastric antrum and in the prepyloric region of the stomach. Biopsies were taken with a cold forceps for histology. Biopsies were taken with a cold forceps for Helicobacter pylori cultures. The examined duodenum was normal. A small hiatal hernia was present. Impression: - [place]-colored mucosa. Biopsied. - Z-line irregular. - Erythematous mucosa in the antrum and prepyloric region of the stomach. Biopsied. - Normal examined duodenum. - Small hiatal hernia. Recommendation: - Await pathology results. - Discharge patient to home. - Resume previous diet. - Continue present medications. - Use sucralfate tablets 1 gram PO QID. Procedure Code(s): --- Professional --- 80448, Esophagogastroduodenoscopy, flexible, transoral; with biopsy, single or multiple Diagnosis Code(s): --- Professional --- K22.8, Other specified diseases of esophagus K31.89, Other diseases of stomach and duodenum K44.9, Diaphragmatic hernia without obstruction or gangrene CPT copyright 2017 [employer]. All rights reserved. The codes documented in this report are preliminary and upon scrubber machine tender review may be revised to meet current compliance requirements. MD Marian Moreno MD 12/18/2020 8:50:40 AM This report has been signed electronically. Number of Addenda: 0 Note Initiated On: 12/18/2020 7:41 AM
[2020-12-19 08:43] LABS: Prothrombin Time Fingerstick 11.2 SEC (11.9-14.4)
== END 2020-12-18 09:48 | disposition home or self-care (01) ==
LOC: SDC 06:46 → AC 06:47
PROVIDERS: PCP Family Medicine Geriatric Medicine; Referring Provider Family Medicine Geriatric Medicine; Visit Provider Surgery
PROC: 0DJD8ZZ Inspection of Lower Intestinal Tract, Via Natural or Artificial Opening Endoscopic (ICD-10-PCS; CPT 45378; principal; 2020-12-18 07:40)
DX: D12.2 Benign neoplasm of ascending colon (principal); D12.3 Benign neoplasm of transverse colon; D12.4 Benign neoplasm of descending colon; K64.9 Unspecified hemorrhoids; K21.9 Gastro-esophageal reflux disease without esophagitis; K22.70 Barrett's esophagus without dysplasia; K44.9 Diaphragmatic hernia without obstruction or gangrene; K31.89 Other diseases of stomach and duodenum; R10.30 Lower abdominal pain, unspecified; R14.3 Flatulence; E11.9 Type 2 diabetes mellitus without complications; E78.00 Pure hypercholesterolemia, unspecified; F17.210 Nicotine dependence, cigarettes, uncomplicated; Z90.49 Acquired absence of other specified parts of digestive tract; Z79.82 Long term (current) use of aspirin; Z79.01 Long term (current) use of anticoagulants; Z79.02 Long term (current) use of antithrombotics/antiplatelets; Z79.84 Long term (current) use of oral hypoglycemic drugs; Z79.899 Other long term (current) drug therapy
CPT/HCPCS: 43239; 45385; 36416; 82962; 85610; 88305; 88313; 88341; 88342; J7120; J2405

== ENCOUNTER → 2021-01-23 11:51 | Outpatient (CLI) | payer OTHER, SELFPAY ==
[2021-01-23 13:03] LABS: Absolute Lymphocyte Count 3.42 X10^3/uL (0.83-4.51); Absolute Neutrophil Count 10.1 X10^3/uL (2.0-7.7); Basophil% 0.7 % (0-1); Eosinophil# 0.31 X10^3/uL; Eosinophils% 2.1 % (0-5); Hematocrit 37.4 % (37-47); Hemoglobin 12.4 g/dL (12.0-15.0); Lymphocyte # 3.42 X10^3/ul (0.83-4.51); Lymphocyte % 22.9 % (19-41); Mean Corp Hgb Conc 33.2 g/dL (32-36); Mean Corpuscular Hgb 30.2 pg (27.0-32.0); Mean Corpuscular Volume 91.2 fL (81-99); Mean Platelet Vol. 10.4 fl (6.2-12.0); Monocyte# 0.91 X10^3/uL; Monocyte% 6.1 % (0-10); NRBC Flagged by Analyzer 0 % (0-5); Neutrophil # 10.13 X10^3/uL (2.7-7.7); Neutrophil % 67.7 % (47-70); Platelet Count 429 K/mm3 (150-450); RBC Distribution Width SD 46.6 fl (35.1-43.9)
[2021-01-23 13:31] LABS: AST(SGOT) 14 U/L (15-37); Alanine Aminotransfer ALT/SGPT 25 U/L (13-56); Albumin, Serum 3.2 g/dL (3.2-5.0); Alkaline Phosphatase 92 U/L (45-117); Anion Gap 4 (5-15); BUN 14 mg/dL (7-18); BUN/Creat Ratio 22.8 RATIO (10-20); Calcium,Total 9.2 mg/dL (8.5-10.1); Chloride 107 mmol/L (98-107); Creatinine, Serum 0.61 mg/dL (0.55-1.02); EST Glomerular Filtration Rate 109 mL/min (>60); Est Glom Filt Rate - Afr Amer 132 mL/min (>60); Globulin 3.3 g/dL (2.2-4.2); Glucose 152 mg/dL (74-106); Protein, Total 6.5 g/dL (6.4-8.2); Sodium Level 139 mmol/L (136-145); Thyroid Stim Hormone (TSH) 2.54 uIU/mL (0.358-3.74)
== END ==
PROVIDERS: PCP Family Medicine Geriatric Medicine; Visit Provider Family Medicine Geriatric Medicine
DX: E11.65 Type 2 diabetes mellitus with hyperglycemia (principal); R53.83 Other fatigue
CPT/HCPCS: 36415; 80053; 84443; 85025

== ENCOUNTER → 2021-02-14 14:38 | Outpatient (CLI) | payer OTHER, SELFPAY ==
--- NOTE | 2021-02-14 14:47 | CT_ITS ---
STUDY: CT ABDOMEN AND PELVIS WITH CONTRAST REASON FOR EXAM: Female, 50 years old. Left sided abdominal pain RADIATION DOSAGE (If Supplied By Facility): CTDIvol = ( 10.94 ) mGy, DLP = ( 822.17 ) mGycm TECHNIQUE: Transaxial images were obtained from the dome of the diaphragm to the symphysis pubis with oral contrast. 100 ml of ISOVUE 300 contrast was administered. Sagittal and coronal images were reconstructed. Individualized dose optimization techniques were used for this CT. COMPARISON: 12/14/19 FINDINGS: The visualized lung bases are clear. The visualized portions of the heart and pericardium are within normal limits. The patient is status post cholecystectomy. The liver is within normal limits. There are no suspicious hepatic lesions. The spleen is normal in size. The pancreas is within normal limits. The adrenal glands are within normal limits. There are no renal or ureteral stones. 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 There is no hydronephrosis. There are no focal renal lesions. Normal visualized stomach. There is no bowel obstruction or inflammation. The appendix is visualized and appears normal. The aorta is normal in caliber. Again noted is a patent stent in the infrarenal abdominal aorta. There is no abdominal or pelvic free air, free fluid, fluid collection or lymphadenopathy. There are no destructive osseous lesions. CT/Abdomen/Pelvis WITH Contrast IMPRESSION: No acute abdominal or pelvic pathology. No cause for patient''s pain identified on this exam. Electronically Signed: Edgar Goncalves MD at 8:49 EDT Tel , Service support ,
== END ==
PROVIDERS: PCP Family Medicine Geriatric Medicine; Referring Provider Surgery; Visit Provider Surgery
DX: R10.9 Unspecified abdominal pain (principal)
CPT/HCPCS: 74177; Q9967

== ENCOUNTER 2021-03-10 04:57 | Emergency (ER) | payer OTHER, SELFPAY ==
[2021-03-10 04:58] VITALS: BP 136/77; PULSE 76; RESP 16; TEMP 36.6; O2SAT 97; BMI 29.2
--- NOTE | 2021-03-10 05:17 | CT_ITS ---
STUDY: CT ABDOMEN AND PELVIS WITHOUT CONTRAST REASON FOR EXAM: Female, 50 years old. Left flank pain RADIATION DOSAGE (If Supplied By Facility): CTDIvol = ( 11.02 ) mGy, DLP = ( 597.30 ) mGycm TECHNIQUE: Transaxial images were obtained from the dome of the diaphragm to the symphysis pubis without oral contrast, and without intravenous contrast. Sagittal and coronal images were reconstructed. Individualized dose optimization techniques were used for this CT. COMPARISON: February 14, 2021 CT scan abdomen and pelvis FINDINGS: The visualized lung bases are unremarkable. The visualized portions of the heart are within normal limits. Normal liver. There are surgical clips in the gallbladder fossa consistent with a prior cholecystectomy. Normal spleen. Normal pancreas. Normal bilateral adrenal glands. There is minimal right pelviectasis. 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 There is a distended appearance of the left renal pelvis without visualized hydronephrosis. Normal visualized stomach. Normal small intestine. There is moderate stool in the colon. The appendix is visualized and appears normal. There is a stent in the distal aorta with a normal caliber. Normal inferior vena cava. Normal retroperitoneum. Normal urinary bladder. Normal visualized uterus. There is a minimal umbilical hernia containing fat. There are diffuse degenerative changes of the visualized lumbar spine. CT/Abdomen/Pelvis without Cont IMPRESSION: Moderate constipation. Status post cholecystectomy. Left renal pelviectasis, partially duplicated left collecting system without visualized stones within the left ureter. Cannot entirely exclude a recently passed stone. Stent in the distal aorta. No appendicitis. Electronically Signed: Nakia Lynch MD at 6:09 EDT Tel , Service support ,
[2021-03-10 05:23] LABS: Absolute Lymphocyte Count 4.74 X10^3/uL (0.83-4.51); Basophil% 0.6 % (0-1); Eosinophil# 0.27 X10^3/uL; Eosinophils% 1.7 % (0-5); Hemoglobin 13.1 g/dL (12.0-15.0); Lymphocyte # 4.74 X10^3/ul (0.83-4.51); Lymphocyte % 29.6 % (19-41); Mean Corp Hgb Conc 33.6 g/dL (32-36); Mean Corpuscular Hgb 30.2 pg (27.0-32.0); Mean Corpuscular Volume 89.9 fL (81-99); Monocyte# 0.81 X10^3/uL; Mucous, Urine 0 SEEN /hpf (<or=2+); NRBC Flagged by Analyzer 0 % (0-5); Neutrophil # 10.04 X10^3/uL (2.7-7.7); Neutrophil % 62.6 % (47-70); POSITIVE MORPHOLOGY YES; Platelet Count 406 K/mm3 (150-450); RBC Distribution Width SD 46.5 fl (35.1-43.9); Red Blood Cells-Urine 0 SEEN /hpf (0-5); Red Blood Count 4.34 M/mm3 (4.2-5.4); Squamous Epithelial Cells - UA 0 SEEN /hpf (5-10)
[2021-03-10 05:24] LABS: Color, Urine Yellow (Yellow); Glucose, Dipstick Normal (Normal); Ketone-Dipstick Negative (Negative); Leukocyte Esterase-Dipstick 100 /ul (Negative); Nitrite-Dipstick Negative (Negative); Occult Blood-Urine 10 /ul (Negative); Protein-Dipstick Negative (Negative); Urine Bilirubin Dipstick Negative (Negative); Urine Clarity Clear (Clear); Urine Urobilinogen Normal (Normal)
[2021-03-10] MEDS: Ondansetron 4 MG/2 ML Vial IV (05:24)
[2021-03-10 05:26] LABS: Differential Indicated SCAN CRITERIA MET
[2021-03-10] MEDS: Ketorolac 15 MG/ML Vial IV (05:27)
--- NOTE | 2021-03-10 05:29 | EDS_ITS ---
HPI HPI - GI History of Present Illness Chief Complaint: Abd Pain Informant: patient Abdominal Pain/Flank Pain Onset: Weeks Context: - (Cannot remember onset) Timing: Continuous Quality: Aching Location: Left Flank Current Severity: Severe Maximum Severity: Severe Worsened by: Movement (Sometimes) Relieved by: Nothing Nausea/Vomiting/Emesis GI Symptom: Positive for Nausea; Negative for Vomiting Onset: Today Diarrhea/Melena/Hematochezia GI Symptom: Negative for Diarrhea, Melena and Hematochezia Narrative Narrative: Patient states she has had this discomfort for 4 weeks, maybe a month, she states that she had a screening colonoscopy and saw Dr. Yaakov suarez, she told her about it but did not have any test for this, and that was weeks ago. She states the discomfort is gotten worse and since it was severe tonight and she was nauseated, she presents at around 5 AM. She had a history of surgery on her kidney on the left because of scar tissue and kidney stones. That was not recent. She denies any trouble urinating, constipation or other trouble with bowel movements, or fevers/chills. 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 Bruising Chronic cough Contraceptive management Depression Diabetes mellitus DVT (deep venous thrombosis) Easy bruising Excessive bleeding Gastric reflux History of echocardiogram Injury of head and neck Leg cramps Leukocytosis Menorrhagia with irregular cycle Smoker Wears dentures Wears glasses Home Medications metformin 1,000 mg PO BID 02/28/14 [History Last Taken 11/26/19 16:00] atorvastatin 80 mg PO QHS 11/26/19 [History Last Taken 11/25/19] clopidogrel 75 mg PO DAILY 12/14/19 [History Last Taken Unknown] warfarin 6.5 mg PO DAILY 12/14/19 [History Last Taken 12/10/20] aspirin 81 mg PO DAILY 04/03/20 [History Last Taken Unknown] biotin 5,000 mcg PO DAILY 04/03/20 [History Last Taken Unknown] pantoprazole 40 mg PO DAILY 04/03/20 [History Last Taken Unknown] doxepin 10 mg PO PRN PRN 12/14/20 [History Last Taken Unknown] escitalopram oxalate [Lexapro] 20 mg PO DAILY 12/14/20 [History Last Taken Unknown] lisinopril 2.5 mg PO DAILY 12/14/20 [History Last Taken 12/18/20 04:00 2.5 mg] sennosides-docusate sodium [Senexon-S] 1 tab PO BID 12/14/20 [History Last Taken Unknown] sucralfate 1 gram tablet 1 g PO QACHS #90 tab 12/18/20 [Rx Last Taken Unknown] polysaccharide iron complex 150 mg iron capsule 150 mg PO BID #180 cap 02/26/21 [Rx Last Taken Unknown] cefaclor 500 mg PO TID 7 Days #21 cap 03/10/21 [Rx Last Taken Unknown] tramadol 50 mg PO Q4H PRN PRN 2 Days #10 tab 03/10/21 [Rx Last Taken Unknown] Allergy/AdvReac Type Severity Reaction Status Date / Time latex Allergy Mild rash Verified 03/10/21 05:00 Penicillins [PCN] Allergy Hives Verified 03/10/21 05:00 Family History Brother Diabetes Father Diabetes Mother Diabetes Uncle Diabetes Skin cancer Colon cancer Uncle Diabetes Aunt Breast cancer Surgical History H/O lithotripsy H/O tubal ligation History of embolectomy Hx of cholecystectomy Hx of partial nephrectomy Social History household members: family current occupational status: employed current occupation: [employer] history of recent travel: No sexually active: No Smoking Status: Current every day smoker tobacco type: cigarettes alcohol intake: never substance use type: does not use what type of physical activity do you participate in: other seatbelt use: always do you feel safe at home: Yes additional social history: single ROS ROS ED Constitutional Constitutional ED: Denies chills or fever(s) Eyes Eyes: Denies change in vision or diplopia ENT ENT ED: Denies rhinorrhea or sore throat Cardiovascular Cardiovascular: Denies chest pain or palpitations Respiratory/Chest Respiratory/Chest: Denies cough or dyspnea Gastrointestinal Gastrointestinal: Reports abdominal pain and nausea; Denies diarrhea or vomiting Genitourinary Genitourinary ED: Denies dysuria or hematuria Musculoskeletal Musculoskeletal: Reports back pain; Denies neck pain Integumentary Denies abscess or rash Neurologic Neurologic: Denies headache(s), paresthesias or weakness Psychiatric Psychiatric: Denies anxiety or suicidal thoughts EXAM Physical Exam Const Vital Signs: 03/10/21 04:58 Temperature 97.9 F Temperature Source Temporal Pulse Rate 76 Respiratory Rate 16 Blood Pressure 136/77 H Blood Pressure Mean 96 Pulse Ox 97 Oxygen Delivery Method Room Air Positive well nourished, well developed and obese General Appearance ED: well developed and NAD Nutritional Appearance: obese HEENT Reports moist mucous membranes normocephalic and atraumatic Eyes PERRL and EOMs intact bilaterally Neck full ROM and supple Resp normal respiratory effort and clear to auscultation bilaterally Cardio regular rate, regular rhythm and no murmurs GI non-distended Auscultation: normoactive bowel sounds Palpation: soft and tender LUQ (And left mid abdomen, toward left CVA); Negative for guarding or rebound tenderness present Back/Spine General Back: CVA tenderness left (Mild) and other FROM Extremity normal to inspection General Extremety ED: Negative for edema, pulses abnormal or tenderness General Extremity: Negative for edema or pulses abnormal Neuro oriented x3, CN's II-XII intact bilaterally and no sensory deficits noted Sensorium / Orientation: awake and alert Motor Exam: strength 5/5 throughout Skin no rashes or lesions noted and no wounds MDM MDM MDM Narrative Medical decision making narrative: Patient was treated with Toradol and Zofran and on reevaluation she is feeling much better. I reviewed the CAT scan results and discussed it with the patient. She has been going to the bathroom normally, she does not have improvement in her discomfort with bowel movements, and clinically does not sound constipated so this likely was an incidental finding based on the timing of the scan with regards to when she has mass movements of her colon. As I discussed with the patient basically the CT scan does not show the reason for her left flank pain. However, she does have a leukocytosis and a urinalysis that is more consistent with infection, and although we did not see stranding and she has no urinary symptoms I think it would be reasonable to cover her for pyelonephritis. She understands that this is not definitively the cause of her discomfort, but it is reasonable to try empirically, and I do recommend close outpatient follow-up. I sent her urine for culture, and we will start her on cefaclor, which I think is the most reasonable appropriate medication for the shortest period of time given the fact that she is on warfarin and it is less likely to interact, however she will require a dose of IV Rocephin 1 g first. She is comfortable with that plan, and I will also give her a prescription for some tramadol. Lab Data Attestation: I reviewed the patient's lab results. Labs: Laboratory Results - last 24 hr 03/10/21 03/10/21 03/10/21 05:10 05:10 05:10 WBC 16.0 H RBC 4.34 Hgb 13.1 Hct 39.0 MCV 89.9 MCH 30.2 MCHC 33.6 RDW Std Deviation 46.5 H RDW Coeff of Edvin 14.0 Plt Count 406 MPV 10.0 Immature Gran % (Auto) 0.500 Neut % (Auto) 62.6 Lymph % (Auto) 29.6 [place] % (Auto) 5.0 Eos % (Auto) 1.7 Baso % (Auto) 0.6 Absolute Neuts (auto) 10.0 H Absolute Lymphs (auto) 4.74 H Nucleated RBC % 0 Differential Comment SCANNED PT INR Sodium 137 Potassium 3.6 Chloride 105 Carbon Dioxide 28.0 Anion Gap 4 L BUN 20 H Creatinine 0.76 Estim Creat Clear Calc 86.12 Est GFR (MDRD) Af Amer 103 Est GFR (MDRD) Non-Af 85 BUN/Creatinine Ratio 26.2 H Glucose 192 H Calcium 9.2 Urine Color Yellow Urine Clarity Clear Urine pH 6.0 Ur Specific [place] 1.010 Urine Protein Negative Urine Glucose (UA) Normal Urine Ketones Negative Urine Occult Blood 10 H Urine Nitrite Negative Urine Bilirubin Negative Urine Urobilinogen Normal Ur Leukocyte Esterase 100 H Urine RBC 0 SEEN Urine WBC 10-25 SEEN Ur Squamous Epith Cells 0 SEEN Urine Bacteria 2+ Urine Mucus 0 SEEN 03/10/21 05:30 WBC RBC Hgb Hct MCV MCH MCHC RDW Std Deviation RDW Coeff of Edvin Plt Count MPV Immature Gran % (Auto) Neut % (Auto) Lymph % (Auto) [place] % (Auto) Eos % (Auto) Baso % (Auto) Absolute Neuts (auto) Absolute Lymphs (auto) Nucleated RBC % Differential Comment PT 16.4 H INR 1.4 Sodium Potassium Chloride Carbon Dioxide Anion Gap BUN Creatinine Estim Creat Clear Calc Est GFR (MDRD) Af Amer Est GFR (MDRD) Non-Af BUN/Creatinine Ratio Glucose Calcium Urine Color Urine Clarity Urine pH Ur Specific [place] Urine Protein Urine Glucose (UA) Urine Ketones Urine Occult Blood Urine Nitrite Urine Bilirubin Urine Urobilinogen Ur Leukocyte Esterase Urine RBC Urine WBC Ur Squamous Epith Cells Urine Bacteria Urine Mucus Radiography Diagnostic Testing: Clinical Impression(s) from Imaging Studies Abdomen/Pelvis CT 03/10/21 05:17 IMPRESSION: Moderate constipation. Status post cholecystectomy. Left renal pelviectasis, partially duplicated left collecting system without visualized stones within the left ureter. Cannot entirely exclude a recently passed stone. Stent in the distal aorta. No appendicitis. Electronically Signed: Nakia Lynch MD at 6:09 EDT Tel , Service support , Discharge Plan Triage Chief Complaint: Abd Pain ED Provider: Wilson Castro Dx/Rx/DC Orders Clinical Impression: Acute left flank pain, Acute upper urinary tract infection Instructions: Kidney Infec Dc, ED Flank Pain, Uncertain Cause Prescriptions: New tramadol 50 MG tablet 50 mg PO Q4H PRN PRN (Reason: Pain) 2 Days Qty: 10 RF: 0 cefaclor 500 mg capsule 500 mg PO TID 7 Days Qty: 21 RF: 0 No Action polysaccharide iron complex [Ferrex 150] 150 mg iron capsule 150 mg PO BID Qty: 180 RF: 2 metformin 500 MG tablet 1,000 mg PO BID RF: 0 atorvastatin 40 MG tablet 80 mg PO QHS RF: 0 clopidogrel 75 MG tablet 75 mg PO DAILY RF: 0 warfarin 5 MG tablet 6.5 mg PO DAILY RF: 0 aspirin 81 MG tablet,delayed release (DR/EC) 81 mg PO DAILY RF: 0 pantoprazole 40 MG tablet 40 mg PO DAILY RF: 0 biotin 5,000 MCG tablet,disintegrating 5,000 mcg PO DAILY RF: 0 sennosides-docusate sodium [Senexon-S] 8.6-50 mg tablet 1 tab PO BID RF: 0 doxepin 10 mg capsule 10 mg PO PRN PRN (Reason: Sleep) RF: 0 lisinopril 2.5 mg tablet 2.5 mg PO DAILY RF: 0 escitalopram oxalate [Lexapro] 20 mg tablet 20 mg PO DAILY RF: 0 sucralfate 1 gram tablet 1 g PO QACHS Qty: 90 RF: 0 Primary Care Provider: Shashank Tai Chi Referrals: Shashank Tai Chi, MD [Primary Care Provider] - 3-5 Days if not improving Disposition Disposition: Home, Self Care
[2021-03-10 05:30] LABS: Bacteria 2+ /hpf (None Seen); White Blood Cells 10-25 SEEN /hpf (0-5)
[2021-03-10 05:32] LABS: Anion Gap 4 (5-15); BUN 20 mg/dL (7-18); BUN/Creat Ratio 26.2 RATIO (10-20); Calcium,Total 9.2 mg/dL (8.5-10.1); Chloride 105 mmol/L (98-107); Creatinine, Serum 0.76 mg/dL (0.55-1.02); EST Glomerular Filtration Rate 85 mL/min (>60); Est Glom Filt Rate - Afr Amer 103 mL/min (>60); Estimated Creatinine Clearance 86.12 ml/min; Glucose 192 mg/dL (74-106); Potassium 3.6 mmol/L (3.5-5.1); Sodium Level 137 mmol/L (136-145)
[2021-03-10 05:57] LABS: International Normalized Ratio 1.4; Prothrombin Time (Protime)PT. 16.4 SECONDS (11.7-14.9)
[2021-03-10 06:16] LABS: Differential Comment SCANNED
[2021-03-10] MEDS: Ceftriaxone 1 GM/50 ML BAG IV (07:44)
[2021-03-10 08:36] VITALS: BP 124/81; PULSE 67; RESP 18; O2SAT 97
== END 2021-03-10 08:36 | disposition home or self-care (01) ==
PROVIDERS: Emergency Provider Emergency Medicine; PCP Family Medicine Geriatric Medicine
DX: N10 Acute pyelonephritis (principal); R10.12 Left upper quadrant pain; E11.9 Type 2 diabetes mellitus without complications; E66.9 Obesity, unspecified; F17.210 Nicotine dependence, cigarettes, uncomplicated; Z90.49 Acquired absence of other specified parts of digestive tract; Z90.5 Acquired absence of kidney; Z79.01 Long term (current) use of anticoagulants; Z79.02 Long term (current) use of antithrombotics/antiplatelets; Z79.82 Long term (current) use of aspirin; Z79.84 Long term (current) use of oral hypoglycemic drugs; Z79.899 Other long term (current) drug therapy; Z87.442 Personal history of urinary calculi; Z86.718 Personal history of other venous thrombosis and embolism
CPT/HCPCS: 74176; 80048; 81001; 85025; 85610; 87077; 87086; 87088; 87186; 96365; 96375; 99283; A4216; J2405

== ENCOUNTER → 2021-05-14 15:00 | Outpatient (CLI) | payer OTHER, SELFPAY ==
[2021-05-14 18:41] LABS: Absolute Lymphocyte Count 3.58 X10^3/uL (0.83-4.51); Absolute Neutrophil Count 5.6 X10^3/uL (2.0-7.7); Basophil# 0.11 X10^3/uL; Basophil% 1.1 % (0-1); Eosinophils% 2.9 % (0-5); Hematocrit 40.4 % (37-47); Lymphocyte # 3.58 X10^3/ul (0.83-4.51); Lymphocyte % 34.6 % (19-41); Mean Corp Hgb Conc 32.2 g/dL (32-36); Mean Corpuscular Hgb 28.8 pg (27.0-32.0); Mean Corpuscular Volume 89.4 fL (81-99); Mean Platelet Vol. 10.3 fl (6.2-12.0); Monocyte# 0.74 X10^3/uL; Monocyte% 7.1 % (0-10); NRBC Flagged by Analyzer 0 % (0-5); Neutrophil # 5.58 X10^3/uL (2.7-7.7); Neutrophil % 53.8 % (47-70); Platelet Count 475 K/mm3 (150-450); RBC Distribution Width CV 15.7 % (11.6-14.6); RBC Distribution Width SD 51.8 fl (35.1-43.9); Red Blood Count 4.52 M/mm3 (4.2-5.4); White Blood Count 10.4 K/mm3 (4.4-11.0)
[2021-05-14 19:05] LABS: ALB/GLOB Ratio 0.9 RATIO (0.9-2.4); AST(SGOT) 13 U/L (15-37); Alanine Aminotransfer ALT/SGPT 22 U/L (13-56); Albumin, Serum 3.4 g/dL (3.2-5.0); Alkaline Phosphatase 74 U/L (45-117); Anion Gap 6 (5-15); BUN 11 mg/dL (7-18); BUN/Creat Ratio 16.4 RATIO (10-20); Calcium,Total 9.6 mg/dL (8.5-10.1); Chloride 108 mmol/L (98-107); Creatinine, Serum 0.67 mg/dL (0.55-1.02); EST Glomerular Filtration Rate 99 mL/min (>60); Est Glom Filt Rate - Afr Amer 120 mL/min (>60); Globulin 3.6 g/dL (2.2-4.2); Glucose 133 mg/dL (74-106); Potassium 3.9 mmol/L (3.5-5.1); Sodium Level 141 mmol/L (136-145); Thyroid Stim Hormone (TSH) 1.15 uIU/mL (0.358-3.74)
== END ==
PROVIDERS: PCP Family Medicine Geriatric Medicine; Visit Provider Family Medicine Geriatric Medicine
DX: R53.83 Other fatigue (principal)
CPT/HCPCS: 36415; 80053; 84443; 85025

== ENCOUNTER 2021-07-30 14:42 | Outpatient (CLI) | payer BC, SELFPAY ==
[2021-07-30 17:21] LABS: Absolute Neutrophil Count 5.2 X10^3/uL (2.0-7.7); Basophil# 0.09 X10^3/uL; Eosinophil# 0.21 X10^3/uL; Eosinophils% 2.4 % (0-5); Hematocrit 39.4 % (37-47); Hemoglobin 13.1 g/dL (12.0-15.0); Lymphocyte % 30.4 % (19-41); Mean Corp Hgb Conc 33.2 g/dL (32-36); Mean Corpuscular Volume 87.4 fL (81-99); Mean Platelet Vol. 10.4 fl (6.2-12.0); Monocyte# 0.61 X10^3/uL; Monocyte% 6.9 % (0-10); NRBC Flagged by Analyzer 0 % (0-5); Neutrophil # 5.23 X10^3/uL (2.7-7.7); Platelet Count 425 K/mm3 (150-450); RBC Distribution Width CV 15.6 % (11.6-14.6); RBC Distribution Width SD 49.8 fl (35.1-43.9); Red Blood Count 4.51 M/mm3 (4.2-5.4); White Blood Count 8.9 K/mm3 (4.4-11.0)
[2021-07-30 17:58] LABS: AST(SGOT) 23 U/L (15-37); Alanine Aminotransfer ALT/SGPT 25 U/L (13-56); Albumin, Serum 3.4 g/dL (3.2-5.0); Alkaline Phosphatase 78 U/L (45-117); Anion Gap 4 (5-15); BUN 12 mg/dL (7-18); BUN/Creat Ratio 17.2 RATIO (10-20); Calcium,Total 9.2 mg/dL (8.5-10.1); Chloride 107 mmol/L (98-107); EST Glomerular Filtration Rate 94 mL/min (>60); Est Glom Filt Rate - Afr Amer 114 mL/min (>60); Globulin 3.3 g/dL (2.2-4.2); Glucose 143 mg/dL (74-106); Potassium 3.9 mmol/L (3.5-5.1); Protein, Total 6.7 g/dL (6.4-8.2); Sodium Level 138 mmol/L (136-145); Thyroid Stim Hormone (TSH) 1.67 uIU/mL (0.358-3.74)
== END 2021-07-30 23:59 | disposition home or self-care (01) ==
LOC: POLAB3 14:43
PROVIDERS: PCP Family Medicine Geriatric Medicine; Visit Provider Family Medicine Geriatric Medicine
DX: E11.65 Type 2 diabetes mellitus with hyperglycemia (principal); R53.83 Other fatigue
CPT/HCPCS: 36415; 80053; 84443; 85025

== ENCOUNTER → 2021-11-01 | Outpatient (CLI) | payer BC, SELFPAY ==
[2021-11-01 17:54] LABS: Absolute Lymphocyte Count 2.55 X10^3/uL (0.83-4.51); Absolute Neutrophil Count 4.9 X10^3/uL (2.0-7.7); Basophil# 0.08 X10^3/uL; Eosinophil# 0.16 X10^3/uL; Eosinophils% 1.9 % (0-5); Hematocrit 38.1 % (37-47); Hemoglobin 12.5 g/dL (12.0-15.0); Lymphocyte # 2.55 X10^3/ul (0.83-4.51); Lymphocyte % 30.6 % (19-41); Mean Corp Hgb Conc 32.8 g/dL (32-36); Mean Corpuscular Hgb 29.9 pg (27.0-32.0); Mean Corpuscular Volume 91.1 fL (81-99); Mean Platelet Vol. 10.3 fl (6.2-12.0); Monocyte% 7.2 % (0-10); NRBC Flagged by Analyzer 0 % (0-5); Neutrophil # 4.92 X10^3/uL (2.7-7.7); Neutrophil % 58.9 % (47-70); Platelet Count 437 K/mm3 (150-450); RBC Distribution Width CV 15.4 % (11.6-14.6); RBC Distribution Width SD 51.1 fl (35.1-43.9); Red Blood Count 4.18 M/mm3 (4.2-5.4); White Blood Count 8.3 K/mm3 (4.4-11.0)
[2021-11-01 18:34] LABS: AST(SGOT) 14 U/L (15-37); Alanine Aminotransfer ALT/SGPT 23 U/L (13-56); Albumin, Serum 3.2 g/dL (3.2-5.0); Alkaline Phosphatase 70 U/L (45-117); Anion Gap 5 (5-15); BUN 9 mg/dL (7-18); BUN/Creat Ratio 13.2 RATIO (10-20); Calcium,Total 9.3 mg/dL (8.5-10.1); Chloride 106 mmol/L (98-107); Creatinine, Serum 0.68 mg/dL (0.55-1.02); EST Glomerular Filtration Rate 96 mL/min (>60); Est Glom Filt Rate - Afr Amer 116 mL/min (>60); Globulin 3.3 g/dL (2.2-4.2); Glucose 169 mg/dL (74-106); Potassium 3.9 mmol/L (3.5-5.1); Protein, Total 6.5 g/dL (6.4-8.2); Sodium Level 138 mmol/L (136-145); Thyroid Stim Hormone (TSH) 1.32 uIU/mL (0.358-3.74)
== END | disposition home or self-care (01) ==
LOC: POLAB3 12:55
PROVIDERS: PCP Family Medicine Geriatric Medicine; Visit Provider Family Medicine Geriatric Medicine
DX: E11.65 Type 2 diabetes mellitus with hyperglycemia (principal); I10 Essential (primary) hypertension
CPT/HCPCS: 36415; 80053; 84443; 85025

== ENCOUNTER → 2022-01-28 | Outpatient (CLI) | payer BC, SELFPAY ==
[2022-01-28 16:30] LABS: Absolute Neutrophil Count 6.6 X10^3/uL (2.0-7.7); Basophil# 0.12 X10^3/uL; Basophil% 1.1 % (0-1); Eosinophils% 1.8 % (0-5); Hematocrit 39.5 % (37-47); Hemoglobin 13.2 g/dL (12.0-15.0); Lymphocyte % 31.6 % (19-41); Mean Corp Hgb Conc 33.4 g/dL (32-36); Mean Corpuscular Hgb 30.6 pg (27.0-32.0); Mean Corpuscular Volume 91.6 fL (81-99); Mean Platelet Vol. 10.1 fl (6.2-12.0); Monocyte# 0.85 X10^3/uL; Monocyte% 7.5 % (0-10); NRBC Flagged by Analyzer 0 % (0-5); Neutrophil # 6.57 X10^3/uL (2.7-7.7); Neutrophil % 57.6 % (47-70); Platelet Count 451 K/mm3 (150-450); RBC Distribution Width CV 15.5 % (11.6-14.6); RBC Distribution Width SD 51.8 fl (35.1-43.9); Red Blood Count 4.31 M/mm3 (4.2-5.4); White Blood Count 11.4 K/mm3 (4.4-11.0)
[2022-01-28 16:57] LABS: ALB/GLOB Ratio 0.9 RATIO (0.9-2.4); AST(SGOT) 16 U/L (15-37); Alanine Aminotransfer ALT/SGPT 28 U/L (13-56); Albumin, Serum 3.4 g/dL (3.2-5.0); Alkaline Phosphatase 86 U/L (45-117); Anion Gap 6 (5-15); BUN 15 mg/dL (7-18); BUN/Creat Ratio 23.3 RATIO (10-20); Calcium,Total 9.5 mg/dL (8.5-10.1); Chloride 104 mmol/L (98-107); Creatinine, Serum 0.64 mg/dL (0.55-1.02); EST Glomerular Filtration Rate 103 mL/min (>60); Est Glom Filt Rate - Afr Amer 125 mL/min (>60); Globulin 3.6 g/dL (2.2-4.2); Glucose 122 mg/dL (74-106); Potassium 3.9 mmol/L (3.5-5.1); Sodium Level 138 mmol/L (136-145); Thyroid Stim Hormone (TSH) 1.35 uIU/mL (0.358-3.74)
== END | disposition home or self-care (01) ==
LOC: POLAB3 11:25
PROVIDERS: PCP Family Medicine Geriatric Medicine; Visit Provider Family Medicine Geriatric Medicine
DX: E11.65 Type 2 diabetes mellitus with hyperglycemia (principal); I10 Essential (primary) hypertension
CPT/HCPCS: 36415; 80053; 84443; 85025

== ENCOUNTER → 2022-01-28 | Outpatient (CLI) | payer BC, SELFPAY ==
--- NOTE | 2022-01-29 05:36 | PFTCOMP_ITS ---
COMPLETE PULMONARY FUNCTION TEST INTERPRETATION Brief HPI: Patient is a 51-year-old female, currently under the care of Dr. Tai, who presents to [facility] for complete pulmonary function tests secondary to diagnosis of dyspnea. Respiratory therapist reports good effort and reproducible results. Interpretation: Forced expiration spirometry shows no large airways obstructive ventilatory defect with an FEV1 of 75% predicted. There is no significant bronchodilator response by strict ATS criteria. Spirograms are of good quality and plateau normally. The respiratory flow volume loop shows a normal pattern. Lung volumes by body plethysmography show a decreased total lung capacity at 4 .28 L, 77% predicted. All other lung volumes are reduced symmetrically. Diffusion capacity by carbon monoxide is decreased at 55% predicted. The airway resistance is slightly elevated. No previous pulmonary function tests were available for review. Impression: Irreversible mild restrictive ventilatory defect with a disproportionate reduction diffusion capacity. Consider lung imaging if not completed previously.
== END | disposition home or self-care (01) ==
LOC: PSN 13:00
PROVIDERS: PCP Family Medicine Geriatric Medicine; Referring Provider Family Medicine Geriatric Medicine; Visit Provider Family Medicine Geriatric Medicine
DX: R06.02 Shortness of breath (principal)
CPT/HCPCS: 94060; 94726; 94729

== ENCOUNTER → 2022-02-13 | Outpatient (CLI) | payer BC, SELFPAY ==
--- NOTE | 2022-02-13 14:52 | CT_ITS ---
STUDY: CTA CHEST REASON FOR EXAM: Female, 51 years old. SOB RADIATION DOSAGE (If Supplied By Facility): CTDIvol = ( 10.28 ) mGy, DLP = ( 520.53 ) mGycm TECHNIQUE: The examination was performed with the intravenous administration of IV 100mL Isovue-370. Post-processing of the angiographic images was performed, with multiplanar reformation and 3D reconstruction. Individualized dose optimization techniques were used for this CT. COMPARISON: None. FINDINGS: Normal enhancement of the main pulmonary artery and right and left pulmonary arteries. Normal enhancement of the bilateral peripheral pulmonary arteries. There is no demonstrated pulmonary embolism. Normal thoracic aorta and visualized great vessels. There is no demonstrated aortic dissection. Normal heart and pericardium. No evidence of coronary artery calcification. Normal mediastinum. Normal hilar regions. Normal visualized trachea and bronchi. Hyperinflation. Mild degree of emphysematous changes more prominent in the upper lobes. Normal pleura. Normal chest wall structures. Normal osseous structures. The patient is status post cholecystectomy. CT/CTA Chest W/WO Contrast IMPRESSION: Hyperinflation. Mild emphysematous changes. No evidence of pulmonary embolism. Electronically Signed: Bandar Garcia MD at 15:29 EDT ,
== END | disposition home or self-care (01) ==
LOC: CT 14:50
PROVIDERS: PCP Family Medicine Geriatric Medicine; Referring Provider Family Medicine Geriatric Medicine; Visit Provider Family Medicine Geriatric Medicine
DX: R06.02 Shortness of breath (principal)
CPT/HCPCS: 71275; Q9967

== ENCOUNTER 2022-04-22 21:31 | Emergency (ER) | payer BC, SELFPAY ==
[2022-04-22 21:32] VITALS: BP 143/68; PULSE 92; RESP 18; TEMP 35.8; O2SAT 100; BMI 30.4
--- NOTE | 2022-04-22 22:31 | US_ITS ---
EXAM: US PELVIS TRANSVAGINAL CLINICAL INDICATION: Bleeding and cramping TECHNIQUE: Transvaginal pelvic ultrasound was performed with grayscale and color Doppler imaging. Transvaginal imaging was used for better evaluation of the endometrium and adnexa. This report was created using [employer] report buildabrand technology. COMPARISON: None. FINDINGS: UTERUS/CERVIX: The uterus measures 6.4 x 4.2 x 4.2 cm. The endometrial stripe measures 0.9 cm in thickness which is abnormal for patient''s age. Endometrial echo appears heterogeneous. fibre technologist noted that that was a large collection of blood within the cervix at the beginning of the exam which was expelled during the exam. Anteverted. There is no uterine mass. RIGHT OVARY: There are 3 heterogeneous cyst in the right ovary the largest measuring 1.8 cm. Blood flow is present in the right ovary. The right ovary measures 4.6 x 2.4 x 2.6 cm. LEFT OVARY: Unremarkable. Blood flow is present in the left ovary. The left ovary measures 2.4 x 1.7 x 1.5 cm. FREE FLUID: None. BLADDER: Empty bladder which cannot be evaluated with this probe. US/Transvaginal Non- IMPRESSION: 1. The uterus measures 6.4 x 4.2 x 4.2 cm. The endometrial stripe measures 0.9 cm in thickness which is abnormal for patient''s age. Please correlate with menstrual status. If patient is postmenopausal, findings could be due to endometrial hyperplasia or endometrial cancer. Consider gynecology consultation. Consider MRI for further evaluation. 2. At least 3 heterogeneous cysts in the right ovary the largest of which measures 1.8 cm. Consider MR for further evaluation. Electronically Signed: Abdiel Blank MD at 1:41 EST ,
--- NOTE | 2022-04-22 22:33 | EDS_ITS ---
HPI HPI - Female History of Present Illness Chief Complaint: Vag Bleeding Informant: patient Narrative Narrative: Patient presents with vaginal bleeding. This patient started with some vaginal bleeding last evening a little over 24 hours ago. She placed a tampon and pad and overnight. These were soaked through. Today the bleeding is a little bit less. She was at work and did not have to change the pad it sounds like. But she still has some bleeding. It is bright red. No clots at any time. No dark blood. She states the bleeding is better but she still getting cramping. No nausea vomiting fevers or chills. 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 She had stenting in clot removal up at [facility] in 2019. She is supposed to be on Coumadin and likely Plavix and aspirin lifelong. No other areas of bleeding. Nothing is making her symptoms better or worse but they are improving with time. Her last regular menstrual cycle was just over 2 years ago. 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5 mg PO DAILY DVT 12/14/19 [History Last Taken 12/10/20] aspirin 81 mg tablet,delayed release 81 mg PO DAILY 04/03/20 [History Last Taken Unknown] biotin 5,000 mcg disintegrating tablet 5,000 mcg PO DAILY 04/03/20 [History Last Taken Unknown] pantoprazole 40 mg tablet,delayed release 40 mg PO DAILY 04/03/20 [History Last Taken Unknown] doxepin 10 mg capsule 10 mg PO PRN PRN Sleep 12/14/20 [History Last Taken Unknown] escitalopram oxalate 20 mg tablet (Lexapro) 20 mg PO DAILY 12/14/20 [History Last Taken Unknown] lisinopril 2.5 mg tablet 2.5 mg PO DAILY 12/14/20 [History Last Taken 12/18/20 04:00 2.5 mg] sennosides 8.6 mg-docusate sodium 50 mg tablet (Senexon-S) 1 tab PO BID 12/14/20 [History Last Taken Unknown] sucralfate 1 gram tablet 1 g PO QACHS #90 tabs 12/18/20 [Rx Last Taken Unknown] cefaclor 500 mg capsule 500 mg PO TID 7 days #21 caps 03/10/21 [Rx Last Taken U nknown] tramadol 50 mg tablet 50 mg PO Q4H PRN PRN Pain 2 days #10 tabs 03/10/21 [Rx Last Taken Unknown] polysaccharide iron complex 150 mg iron capsule See Rx Instructions .Route .COMPLEX #180 caps 11/27/21 [Rx Last Taken Unknown] hydrocodone-acetaminophen 5-325mg 5mg-325mg 1 tab PO Q6H PRN pain 3 days #10 tabs 04/23/22 [Rx Last Taken Unknown] medroxyprogesterone 5 mg tablet 5 mg PO DAILY #20 tabs 04/23/22 [Rx Last Taken Unknown] Allergy/AdvReac Type Severity Reaction Status Date / Time latex Allergy Mild rash Verified 04/22/22 21:32 Penicillins [PCN] Allergy Hives Verified 04/22/22 21:32 Family History Brother Diabetes Father Diabetes Mother Diabetes Uncle Diabetes Skin cancer Colon cancer Uncle Diabetes Aunt Breast cancer Surgical History H/O lithotripsy H/O tubal ligation History of embolectomy Hx of cholecystectomy Hx of partial nephrectomy Social History household members: family current occupational status: employed current occupation: [employer] history of recent travel: No sexually active: No Smoking Status: Current every day smoker tobacco type: cigarettes alcohol intake: never substance use type: does not use what type of physical activity do you participate in: other seatbelt use: always do you feel safe at home: Yes additional social history: single ROS ROS ED Constitutional Constitutional ED: Denies chills or fever(s) Eyes Eyes: Denies change in vision ENT ENT ED: Denies rhinorrhea or sore throat Cardiovascular Cardiovascular: Denies chest pain, palpitations or racing heartbeat Respiratory/Chest Respiratory/Chest: Denies cough or dyspnea Gastrointestinal Gastrointestinal: Reports abdominal pain; Denies constipation, diarrhea, melena, nausea or vomiting Genitourinary Genitourinary ED: Reports other Details: See history of present illness ; Denies dysuria, hematuria or urinary frequency Musculoskeletal Musculoskeletal: Denies myalgias Integumentary Denies rash Neurologic Neurologic: Denies paresthesias or weakness Endocrine Endocrinology: Denies polydipsia or polyuria Hematologic/Lymphatic Hematologic/Lymphatic: Reports easy bleeding and easy bruising Allergic/Immunologic Allergic/Immunologic ED: Denies urticaria EXAM Physical Exam Const Vital Signs: 04/22/22 21:32 04/23/22 00:45 Temperature 96.5 F L Temperature Source Temporal Pulse Rate 92 69 Respiratory Rate 18 18 Blood Pressure 143/68 H 113/63 Blood Pressure Mean 93 79 Pulse Ox 100 97 Oxygen Delivery Method Room Air Room Air Positive well nourished and well developed General Appearance ED: well developed and NAD; Negative for pallor HEENT Reports moist mucous membranes Eyes General Eye ED: Negative for pale conjunctiva Neck supple Resp normal respiratory effort and clear to auscultation bilaterally Cardio regular rate, regular rhythm and no murmurs Rate: Negative for tachycardic GI normal to inspection, nondistended, normoactive bowel sounds, soft to palpation, non-tender and no masses Back/Spine no CVA tenderness Extremity normal to inspection Extremity Narrative: No pallor or indication of poor blood flow. No cyanosis. Extremities are warm. Neuro oriented x3 Psych mental status grossly normal Skin no rashes or lesions noted and no wounds General Skin Exam: Negative for pallor MDM MDM MDM Narrative Medical decision making narrative: Ultrasound showed thickened endometrial stripe. Her CBC including hemoglobin and platelets were normal. INR was therapeutic at 2.1. Electrolytes were overall unremarkable other than mild elevation of glucose. Patient's recheck. She did have increased bleeding during the ultrasound but is calm down again. I did call and discussed the case with Dr. Raygoza. We also discussed the patient's unique risks with her prior clot in her anticoagulation. Plan will be to start on medroxyprogesterone. There is some risk of clot but relatively less with this. She is also already anticoagulated. We will start at 5 mg twice a day for 3 days and then once a day for 2 weeks. Patient will call the office in the morning to make an appointment toward the end of her treatment. If she has heavier bleeding lightheadedness or other issues in the meantime she should return. Plan will be medication, follow-up, likely endometrial biopsy. Lab Data Attestation: I reviewed the patient's lab results. Labs: Laboratory Results - last 24 hr 04/22/22 04/22/22 04/22/22 22:53 22:53 22:53 WBC 10.2 RBC 4.26 Hgb 12.6 Hct 38.8 MCV 91.1 MCH 29.6 MCHC 32.5 RDW Std Deviation 49.5 H RDW Coeff of Edvin 14.9 H Plt Count 414 MPV 9.7 Immature Gran % (Auto) 0.500 Neut % (Auto) 49.8 Lymph % (Auto) 40.1 [place] % (Auto) 7.2 Eos % (Auto) 1.5 Baso % (Auto) 0.9 Absolute Neuts (auto) 5.1 Absolute Lymphs (auto) 4.07 Nucleated RBC % 0 PT 22.9 H INR 2.1 Sodium 138 Potassium 4.3 Chloride 106 Carbon Dioxide 27.0 Anion Gap 5 BUN 17 Creatinine 0.92 Estim Creat Clear Calc 70.35 Est GFR (MDRD) Af Amer 83 Est GFR (MDRD) Non-Af 68 BUN/Creatinine Ratio 18.5 Glucose 146 H Calcium 9.0 Serum , Qual 04/22/22 22:53 WBC RBC Hgb Hct MCV MCH MCHC RDW Std Deviation RDW Coeff of Edvin Plt Count MPV Immature Gran % (Auto) Neut % (Auto) Lymph % (Auto) [place] % (Auto) Eos % (Auto) Baso % (Auto) Absolute Neuts (auto) Absolute Lymphs (auto) Nucleated RBC % PT INR Sodium Potassium Chloride Carbon Dioxide Anion Gap BUN Creatinine Estim Creat Clear Calc Est GFR (MDRD) Af Amer Est GFR (MDRD) Non-Af BUN/Creatinine Ratio Glucose Calcium Serum , Qual NEGATIVE Radiography Diagnostic Testing: Clinical Impression(s) from Imaging Studies Transvaginal US 04/22/22 22:31 IMPRESSION: 1. The uterus measures 6.4 x 4.2 x 4.2 cm. The endometrial stripe measures 0.9 cm in thickness which is abnormal for patient''s age. Please correlate with menstrual status. If patient is postmenopausal, findings could be due to endometrial hyperplasia or endometrial cancer. Consider gynecology consultation. Consider MRI for further evaluation. 2. At least 3 heterogeneous cysts in the right ovary the largest of which measures 1.8 cm. Consider MR for further evaluation. Electronically Signed: Abdiel Blank MD at 1:41 EST , Ultrasound showed thickened endometrial stripe. There are also some heterogeneous cysts in the right ovary. Discharge Plan Triage Chief Complaint: Vag Bleeding ED Provider: Michoacano Mello Dx/Rx/DC Orders Clinical Impression: Abnormal uterine bleeding, Warfarin-induced coagulopathy Instructions: ED Dysfunctional Uterine Bleeding Prescriptions: New medroxyprogesterone 5 mg tablet 5 mg PO DAILY Qty: 20 0RF Rx Instructions: 5 mg twice a day for 3 days. Then 5 mg once daily for 2 weeks. hydrocodone-acetaminophen 5-325 mg tablet 1 tab PO Q6H PRN (Reason: pain) 3 Days Qty: 10 0RF No Action metformin 500 MG tablet 1,000 mg PO BID Label Comments: atorvastatin 40 MG tablet 80 mg PO QHS clopidogrel 75 MG tablet 75 mg PO DAILY warfarin 5 MG tablet 6.5 mg PO DAILY aspirin 81 MG tablet,delayed release (DR/EC) 81 mg PO DAILY pantoprazole 40 MG tablet 40 mg PO DAILY biotin 5,000 MCG tablet,disintegrating 5,000 mcg PO DAILY sennosides-docusate sodium [Senexon-S] 8.6-50 mg tablet 1 tab PO BID Label Comments: TAKE 1 TABLET BY MOUTH TWICE A DAY NEEDED FOR 30 DAYS doxepin 10 mg capsule 10 mg PO PRN PRN (Reason: Sleep) lisinopril 2.5 mg tablet 2.5 mg PO DAILY Label Comments: TAKE 1 TABLET BY MOUTH EVERY DAY escitalopram oxalate [Lexapro] 20 mg tablet 20 mg PO DAILY Label Comments: TAKE 1 TABLET BY MOUTH EVERY DAY tramadol 50 MG tablet 50 mg PO Q4H PRN PRN (Reason: Pain) 2 Days Qty: 10 0RF cefaclor 500 mg capsule 500 mg PO TID 7 Days Qty: 21 0RF sucralfate 1 gram tablet 1 g PO QACHS Qty: 90 0RF Rx Instructions: Take 1 hour before meals and at bedtime polysaccharide iron complex 150 mg iron capsule See Rx Instructions .ROUTE .COMPLEX Qty: 180 2RF Dose Instruction: TAKE 1 CAPSULE BY MOUTH TWICE A DAY Rx Instructions: TAKE 1 CAPSULE BY MOUTH TWICE A DAY Primary Care Provider: Shashank Tai Chi Referrals: Yaquelin Raygoza MD [Med Staff - Active Staff] - 1-2 Weeks (Call the office in the morning for an appointment) Shashank Tai Chi, MD [Primary Care Provider] - Disposition Disposition: Home, Self Care
[2022-04-22] MEDS: Ketorolac 15 MG/ML Vial IV (22:47)
[2022-04-22 22:58] LABS: Absolute Lymphocyte Count 4.07 X10^3/uL (0.83-4.51); Absolute Neutrophil Count 5.1 X10^3/uL (2.0-7.7); Basophil# 0.09 X10^3/uL; Basophil% 0.9 % (0-1); Eosinophil# 0.15 X10^3/uL; Eosinophils% 1.5 % (0-5); Hematocrit 38.8 % (37-47); Hemoglobin 12.6 g/dL (12.0-15.0); Lymphocyte # 4.07 X10^3/ul (0.83-4.51); Lymphocyte % 40.1 % (19-41); Mean Corp Hgb Conc 32.5 g/dL (32-36); Mean Corpuscular Hgb 29.6 pg (27.0-32.0); Mean Corpuscular Volume 91.1 fL (81-99); Mean Platelet Vol. 9.7 fl (6.2-12.0); Monocyte# 0.73 X10^3/uL; Monocyte% 7.2 % (0-10); NRBC Flagged by Analyzer 0 % (0-5); Neutrophil # 5.06 X10^3/uL (2.7-7.7); Neutrophil % 49.8 % (47-70); Platelet Count 414 K/mm3 (150-450); RBC Distribution Width CV 14.9 % (11.6-14.6); RBC Distribution Width SD 49.5 fl (35.1-43.9); Red Blood Count 4.26 M/mm3 (4.2-5.4); White Blood Count 10.2 K/mm3 (4.4-11.0)
[2022-04-22 23:08] LABS: International Normalized Ratio 2.1; Prothrombin Time (Protime)PT. 22.9 SECONDS (11.7-14.9)
[2022-04-22 23:14] LABS: Anion Gap 5 (5-15); BUN 17 mg/dL (7-18); BUN/Creat Ratio 18.5 RATIO (10-20); Chloride 106 mmol/L (98-107); Creatinine, Serum 0.92 mg/dL (0.55-1.02); EST Glomerular Filtration Rate 68 mL/min (>60); Est Glom Filt Rate - Afr Amer 83 mL/min (>60); Estimated Creatinine Clearance 70.35 ml/min; Glucose 146 mg/dL (74-106); Internal QC Validated? YES +Cl - CLEAR BKGD; Potassium 4.3 mmol/L (3.5-5.1); Pregnancy, Serum, hCG Quali. NEGATIVE Negative; Sodium Level 138 mmol/L (136-145)
[2022-04-23 00:45] VITALS: BP 113/63; PULSE 69; RESP 18; O2SAT 97
[2022-04-23] MEDS: oxyCODONE 5 MG Tablet PO (02:13)
== END 2022-04-23 02:18 | disposition home or self-care (01) ==
PROVIDERS: Emergency Provider Emergency Medicine; PCP Family Medicine Geriatric Medicine; Visit Provider Emergency Medicine
DX: N93.9 Abnormal uterine and vaginal bleeding, unspecified (principal); D68.32 Hemorrhagic disorder due to extrinsic circulating anticoagulants; E11.9 Type 2 diabetes mellitus without complications; T45.515A Adverse effect of anticoagulants, initial encounter; Z86.718 Personal history of other venous thrombosis and embolism
CPT/HCPCS: 76830; 80048; 84703; 85025; 85610; 96374; 99284; A4216

== ENCOUNTER → 2022-04-23 | Outpatient (CLI) | payer BC, SELFPAY ==
[2022-04-23 17:24] LABS: Absolute Lymphocyte Count 2.47 X10^3/uL (0.83-4.51); Absolute Neutrophil Count 6.1 X10^3/uL (2.0-7.7); Basophil% 1.1 % (0-1); Eosinophils% 2.1 % (0-5); Hematocrit 40.1 % (37-47); Lymphocyte # 2.47 X10^3/ul (0.83-4.51); Lymphocyte % 26.3 % (19-41); Mean Corp Hgb Conc 32.4 g/dL (32-36); Mean Corpuscular Hgb 29.5 pg (27.0-32.0); Mean Corpuscular Volume 91.1 fL (81-99); Mean Platelet Vol. 9.8 fl (6.2-12.0); Monocyte# 0.46 X10^3/uL; Monocyte% 4.9 % (0-10); NRBC Flagged by Analyzer 0 % (0-5); Neutrophil # 6.14 X10^3/uL (2.7-7.7); Neutrophil % 65.3 % (47-70); Platelet Count 443 K/mm3 (150-450); RBC Distribution Width CV 14.9 % (11.6-14.6); RBC Distribution Width SD 49.7 fl (35.1-43.9); White Blood Count 9.4 K/mm3 (4.4-11.0)
== END | disposition home or self-care (01) ==
LOC: POLAB3 15:03
PROVIDERS: PCP Family Medicine Geriatric Medicine; Visit Provider Family Medicine Geriatric Medicine
DX: D50.9 Iron deficiency anemia, unspecified (principal)
CPT/HCPCS: 36415; 85025

== ENCOUNTER → 2022-05-07 | Outpatient (CLI) | payer BC, SELFPAY ==
--- NOTE | 2022-05-07 | EMB_PTH ---
PATIENT: ROGERIO KIRKLAND LOC: [facility] U#:[id number] AGE/SX: 51/F ROOM: RE05/07/[address]: ANA Bro : 1970 BED: DIS: 05/07/2022 SPEC #: [id number] RECD: 05/07/22 15:47 STATUS: KEI RERandall #: [id number] VICKY: 05/07/22 00:[address]: Penelope Marte NP DEPT: SURGICAL PATHOLOGY RECD BY: Lila Limon ENTERED: 05/08/22 07:49 SP TYPE: ENDOM BX/C LYDIA DR: Dr. Shashank Tai MD Tissues: Endometrium, NOS Procedures: Surgery Specimen Level IV HEADER OPERATION: Endometrial biopsy PRE-OP DIAGNOSIS: Abnormal uterine bleeding TISSUE SUBMITTED: Endometrial tissue MICROSCOPIC DIAGNOSIS Endometrium, biopsy: Weakly proliferative endometrium. AM:malgorzata 05/09/2022 MICROSCOPIC DESCRIPTION Slides are reviewed. GROSS DESCRIPTION Received is one container labeled with the patient's name and not further designated. The specimen consists of multiple fragments of hemorrhagic soft tissue that in aggregate measure 3 x 2.5 x 0.1 cm. The specimen is totally submitted in one cassette. / SJ:malgorzata 05/08/2022 TC:5 CPT: 33585
== END | disposition home or self-care (01) ==
LOC: LABSPEC 16:36
PROVIDERS: PCP Family Medicine Geriatric Medicine; Visit Provider Nurse Practitioner Women's Health
DX: N93.9 Abnormal uterine and vaginal bleeding, unspecified (principal)
CPT/HCPCS: 88305

== ENCOUNTER 2022-05-08 17:53 | Emergency (ER) | payer BC, SELFPAY ==
[2022-05-08 17:54] VITALS: BP 106/76; PULSE 70; RESP 18; TEMP 35.9; O2SAT 97; BMI 30.2
[2022-05-08 19:47] VITALS: BP 108/66; BP 112/65; BP 114/69; PULSE 70; PULSE 79; PULSE 88
--- NOTE | 2022-05-08 19:47 | EDS_ITS ---
HPI History of Present Illness Chief Complaint: Syncope Detail of Chief Complaint: URI symptoms. Had syncopal episode in doctor's office. Informant: patient Onset/Context/Timing Onset: Today and Days Current Severity: Mild Maximum Severity: Mild Narrative Narrative: 51-year-old female history of diabetes. On Coumadin for prior aortic clot. Said she has been off work since Friday with URI symptoms. Fever chills body aches. Today was at her primary care physician's office who treated her with Rocephin Toradol and 2 other IM injections. She had a brief syncopal episode prior to leaving the office. She said she felt lightheaded before it came on. Denies any chest pain or headache. No abdominal pain. The syncopal episode occurred when she was sitting in a chair. She did not fall out of the chair nor did she get injured. 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5 mg PO DAILY DVT 12/14/19 [History Last Taken 12/10/20] aspirin 81 mg tablet,delayed release 81 mg PO DAILY 04/03/20 [History Last Taken Unknown] biotin 5,000 mcg disintegrating tablet 5,000 mcg PO DAILY 04/03/20 [History Last Taken Unknown] pantoprazole 40 mg tablet,delayed release 40 mg PO DAILY 04/03/20 [History Last Taken Unknown] doxepin 10 mg capsule 10 mg PO PRN PRN Sleep 12/14/20 [History Last Taken Unknown] escitalopram oxalate 20 mg tablet (Lexapro) 20 mg PO DAILY 12/14/20 [History Last Taken Unknown] lisinopril 2.5 mg tablet 2.5 mg PO DAILY 12/14/20 [History Last Taken 12/18/20 04:00 2.5 mg] sennosides 8.6 mg-docusate sodium 50 mg tablet (Senexon-S) 1 tab PO BID 12/14/20 [History Last Taken Unknown] sucralfate 1 gram tablet 1 g PO QACHS #90 tabs 12/18/20 [Rx Last Taken Unknown] cefaclor 500 mg capsule 500 mg PO TID 7 days #21 caps 03/10/21 [Rx Last Taken Unknown] polysaccharide iron complex 150 mg iron capsule See Rx Instructions .Route .COMPLEX #180 caps 11/27/21 [Rx Last Taken Unknown] norethindrone acetate 5 mg tablet (Aygestin) 5 mg PO .COMPLEX #45 tabs 05/07/22 [Rx Last Taken Unknown] Allergy/AdvReac Type Severity Reaction Status Date / Time latex Allergy Mild rash Verified 05/08/22 17:56 Penicillins [PCN] Allergy Hives Verified 05/08/22 17:56 Family History Brother Diabetes Father Diabetes Mother Diabetes Uncle Diabetes Skin cancer Colon cancer Uncle Diabetes Aunt Breast cancer Surgical History H/O lithotripsy H/O tubal ligation History of embolectomy Hx of cholecystectomy Hx of partial nephrectomy Social History household members: family current occupational status: employed current occupation: [employer] history of recent travel: No sexually active: No Smoking Status: Current every day smoker tobacco type: cigarettes alcohol intake: never substance use type: does not use what type of physical activity do you participate in: other seatbelt use: always do you feel safe at home: Yes additional social history: single ROS ROS ED ROS Narrative DeniesURI symptoms with cough fever chills and body aches. His vomiting or diarrhea. Review of Systems ROS Unobtainable: Denies due to encephalopathy Constitutional Constitutional ED: Reports chills, fever(s) and subjective Eyes Eyes: Denies blurry vision ENT ENT ED: Denies ear pain Cardiovascular Cardiovascular: Denies chest pain or palpitations Respiratory/Chest Respiratory/Chest: Reports cough; Denies dyspnea Gastrointestinal Gastrointestinal: Denies abdominal pain, constipation, diarrhea, melena, nausea or vomiting Genitourinary Genitourinary ED: Denies dysuria or hematuria Musculoskeletal Musculoskeletal: Denies arthralgias Integumentary Denies abscess Neurologic Neurologic: Denies headache(s) Psychiatric Psychiatric: Denies anxiety Endocrine Endocrinology: Denies cold intolerance Hematologic/Lymphatic Hematologic/Lymphatic: Reports none Allergic/Immunologic Allergic/Immunologic ED: Denies mouth swelling or tongue swelling EXAM Physical Exam Narrative Exam Narrative: 51-year-old female no acute distress vital signs stable afebrile. Pulse ox 97% room air no hypoxia. H EENT exam unremarkable. Moist Riis members. Neck nontender no lymphadenopathy. Lungs clear to auscultation by. Heart regular rhythm rate about 70 no murmur. Abdomen soft nontender normal bowel sounds no peritoneal signs. Patient moving all 4 extremities. Calves are nontender without edema or cords. Neurologically she is awake and alert with no focal motor deficits. NIH score is 0. Const Vital Signs: 05/08/22 17:54 05/08/22 18:58 05/08/22 19:47 Temperature 96.7 F L Temperature Source Temporal Pulse Rate 70 Pulse Rate [Lying] 70 Pulse Rate [Sitting (for 1 minute prior to obtaining)] 79 Pulse Rate [Standing (for 1 minute prior to obtaining)] 88 Respiratory Rate 18 Respiratory Effort Normal Non-Labored Respiratory Pattern Normal Blood Pressure 106/76 Blood Pressure [Lying] 112/65 Blood Pressure [Sitting (for 1 minute prior to obtaining)] 114/69 Blood Pressure [Standing (for 1 minute prior to obtaining)] 108/66 Blood Pressure Mean 86 Blood Pressure Mean [Lying] 80 Blood Pressure Mean [Sitting (for 1 minute prior to obtaining)] 84 Blood Pressure Mean [Standing (for 1 minute prior to obtaining)] 80 Pulse Ox 97 Oxygen Delivery Method Room Air Positive well nourished and well developed; Negative for cachectic, contractures or unkempt General Appearance ED: well developed and NAD; Negative for unkempt, cachectic, contractures, cyanotic, diaphoretic or pallor Nutritional Appearance: Negative for cachectic HEENT Reports moist mucous membranes; Denies dry mucous membranes Negative for trauma or tenderness Mouth ED: No dry mucous membranes Mouth: No dry mucous membranes Eyes PERRL and EOMs intact bilaterally General Eye ED: Negative for pale conjunctiva or scleral icterus Neck no lymphadenopathy, supple and no JVD General: Negative for tenderness Lymph Lymphatic: Negative for other Chest Wall inspection of chest normal and palpation of chest normal Chest: Negative for other Resp normal respiratory effort and clear to auscultation bilaterally Effort and Inspection: Negative for retractions Auscultation: Negative for rales, rhonchi or wheezes Cardio regular rate, regular rhythm, S1 normal heart sound, S2 normal heart sound and no murmurs Palpation: Negative for palpable S3 Rate: Negative for bradycardia or tachycardic Rhythm: Negative for abnormal rhythm GI normal to inspection, nondistended, normoactive bowel sounds, non-tender, non- distended and no masses Inspection: Negative for abdominal distention Auscultation: normoactive bowel sounds Palpation: soft; Negative for tender Back/Spine no CVA tenderness General Back: Negative for CVA tenderness Cervical Spine: Negative for cervical spine tenderness Thoracic Spine / Upper Back: Negative for thoracic spinal tenderness Lumbar Spine / Lower Back: Negative for lumbar spinal tenderness Extremity normal to inspection General Extremety ED: Negative for edema or tenderness General Extremity: Negative for edema Neuro oriented x3 and CN's II-XII intact bilaterally Sensorium / Orientation: alert; Negative for orientation impaired, lethargic or stuporous Motor Exam: strength 5/5 throughout Psych mental status grossly normal Appearance: Negative for unkempt Attitude: No agitated Mood & Affect: Negative for depressed, anxious or tearful Skin no rashes or lesions noted, no wounds and skin turgor normal General Skin Exam: elasticity normal; Negative for jaundice or pallor Lesions: No lesion noted Rashes: No rashes noted Trauma: Negative for abrasion Wounds: Negative for wounds noted MDM MDM MDM Narrative Medical decision making narrative: 51-year-old female no acute distress. Vital signs stable afebrile. COVID- positive. Had a syncopal event in the office. Exam benign. She did not fall or get injured she was sitting in a chair when it occurred. Will do orthostatic vital signs if those are fine she will be discharged home treated for COVID. Lab Data Attestation: I reviewed the patient's lab results. Lab results narrative: COVID-positive. Influenza negative. BG T equals 152. Orthostatic vital signs were negative. Discharge Plan Triage Chief Complaint: Syncope ED Provider: Ran Min Dx/Rx/DC Orders Clinical Impression: COVID-19, On anticoagulant therapy, Syncope, History of diabetes mellitus Instructions: Human Coronaviruses Prescriptions: No Action norethindrone acetate [Aygestin] 5 mg tablet 5 mg PO .COMPLEX Qty: 45 0RF Rx Instructions: 5 mg PO tid until bleeding stops X 24 hr then bid to finish Rx metformin 500 MG tablet 1,000 mg PO BID Label Comments: atorvastatin 40 MG tablet 80 mg PO QHS clopidogrel 75 MG tablet 75 mg PO DAILY warfarin 5 MG tablet 6.5 mg PO DAILY aspirin 81 MG tablet,delayed release (DR/EC) 81 mg PO DAILY pantoprazole 40 MG tablet 40 mg PO DAILY biotin 5,000 MCG tablet,disintegrating 5,000 mcg PO DAILY sennosides-docusate sodium [Senexon-S] 8.6-50 mg tablet 1 tab PO BID Label Comments: TAKE 1 TABLET BY MOUTH TWICE A DAY NEEDED FOR 30 DAYS doxepin 10 mg capsule 10 mg PO PRN PRN (Reason: Sleep) lisinopril 2.5 mg tablet 2.5 mg PO DAILY Label Comments: TAKE 1 TABLET BY MOUTH EVERY DAY escitalopram oxalate [Lexapro] 20 mg tablet 20 mg PO DAILY Label Comments: TAKE 1 TABLET BY MOUTH EVERY DAY cefaclor 500 mg capsule 500 mg PO TID 7 Days Qty: 21 0RF sucralfate 1 gram tablet 1 g PO QACHS Qty: 90 0RF Rx Instructions: Take 1 hour before meals and at bedtime polysaccharide iron complex 150 mg iron capsule See Rx Instructions .ROUTE .COMPLEX Qty: 180 2RF Dose Instruction: TAKE 1 CAPSULE BY MOUTH TWICE A DAY Rx Instructions: TAKE 1 CAPSULE BY MOUTH TWICE A DAY Primary Care Provider: Shashank Tai Chi Referrals: Shashank Tai Chi, MD [Primary Care Provider] - 1 Week if not improving Activity Restrictions/Additional Instructions: Plenty of fluids and rest. You are COVID-positive. Your flu test was negative. Tylenol for body aches, fever and chills. Follow-up with your doctor in 1 week if not improving. You do not need any further antibiotics they gave you antibiotics today in the office that will not treat COVID. Disposition Disposition: Home, Self Care
[2022-05-08 20:12] VITALS: BP 114/90; PULSE 75; RESP 16; O2SAT 98
[2022-05-08 20:26] LABS: Bedside Glucose 152 mg/dL (74-106)
== END 2022-05-08 20:12 | disposition home or self-care (01) ==
PROVIDERS: Emergency Provider Emergency Medicine; PCP Family Medicine Geriatric Medicine; Visit Provider Emergency Medicine
DX: U07.1 COVID-19 (principal); E11.9 Type 2 diabetes mellitus without complications; R55 Syncope and collapse; Z79.01 Long term (current) use of anticoagulants
CPT/HCPCS: 82962; 87428; 99283

== ENCOUNTER → 2022-05-21 | Outpatient (CLI) | payer BC, SELFPAY ==
[2022-05-21 17:25] LABS: Absolute Lymphocyte Count 5.51 X10^3/uL (0.83-4.51); Absolute Neutrophil Count 15.4 X10^3/uL (2.0-7.7); Basophil% 0.4 % (0-1); Eosinophil# 0.22 X10^3/uL; Hematocrit 37.2 % (37-47); Hemoglobin 12.9 g/dL (12.0-15.0); Lymphocyte # 5.51 X10^3/ul (0.83-4.51); Lymphocyte % 24.6 % (19-41); Mean Corp Hgb Conc 34.7 g/dL (32-36); Mean Corpuscular Hgb 30.6 pg (27.0-32.0); Mean Corpuscular Volume 88.4 fL (81-99); Mean Platelet Vol. 10.3 fl (6.2-12.0); Monocyte# 1.04 X10^3/uL; Monocyte% 4.7 % (0-10); NRBC Flagged by Analyzer 0 % (0-5); Neutrophil # 15.36 X10^3/uL (2.7-7.7); Neutrophil % 68.7 % (47-70); POSITIVE DIFFERENTIAL YES; POSITIVE MORPHOLOGY YES; Platelet Count 479 K/mm3 (150-450); RBC Distribution Width CV 15.7 % (11.6-14.6); RBC Distribution Width SD 49.1 fl (35.1-43.9); Red Blood Count 4.21 M/mm3 (4.2-5.4); White Blood Count 22.4 K/mm3 (4.4-11.0)
[2022-05-21 17:34] LABS: Differential Indicated SCAN CRITERIA MET
[2022-05-21 18:36] LABS: AST(SGOT) 7 U/L (15-37); Alanine Aminotransfer ALT/SGPT 21 U/L (13-56); Albumin, Serum 3.3 g/dL (3.2-5.0); Alkaline Phosphatase 55 U/L (45-117); Anion Gap 13 (5-15); BUN 15 mg/dL (7-18); BUN/Creat Ratio 19.9 RATIO (10-20); Calcium,Total 9.2 mg/dL (8.5-10.1); Chloride 106 mmol/L (98-107); Creatinine, Serum 0.75 mg/dL (0.55-1.02); EST Glomerular Filtration Rate 86 mL/min (>60); Est Glom Filt Rate - Afr Amer 104 mL/min (>60); Globulin 3.3 g/dL (2.2-4.2); Glucose 302 mg/dL (74-106); Potassium 3.3 mmol/L (3.5-5.1); Protein, Total 6.6 g/dL (6.4-8.2); Sodium Level 139 mmol/L (136-145); Thyroid Stim Hormone (TSH) 1.96 uIU/mL (0.358-3.74)
[2022-05-21 18:39] LABS: Anisocytosis RARE; Macrocytosis RARE; Platelet Estimate SLT INC (ADEQ); Red Cell Morphology N CHROM NORMAL (NORM C&C)
[2022-05-21 20:50] LABS: Hepatitis C Antibody Non-Reactive (Nonreactive)
== END | disposition home or self-care (01) ==
LOC: POLAB3 14:59
PROVIDERS: PCP Family Medicine Geriatric Medicine; Visit Provider Family Medicine Geriatric Medicine
DX: I10 Essential (primary) hypertension (principal); Z13.89 Encounter for screening for other disorder
CPT/HCPCS: 36415; 80053; 84443; 85025; 86803

== ENCOUNTER 2022-06-11 23:10 | Emergency (ER) | payer BC, SELFPAY ==
[2022-06-11 23:10] VITALS: BP 134/68; PULSE 82; RESP 15; TEMP 36.4; O2SAT 100; BMI 29.0
--- NOTE | 2022-06-11 23:34 | US_ITS ---
INDICATION: RLQ pelvic pain / ? torsion EXAMINATION: Ultrasound US Transvaginal Non-OB TECHNIQUE: Transvaginal (for optimal evaluation of the adnexa) pelvic ultrasound was performed. Grayscale, spectral waveform, and color flow Doppler evaluation of the adnexa. COMPARISON: April 22, 2022. FINDINGS: UTERUS: Anteverted. The uterus measures 6.0 x 3.0 x 4.1 cm. There is no uterine mass. The endometrial stripe measures 10 mm in AP diameter which is within normal limits. RIGHT OVARY: 2.6 x 1.1 x 1.9 cm. Non-enlarged, normal echogenicity. Small follicles with complex 1.2 cm physiologic cyst There is normal arterial inflow and venous outflow present in the right ovary. LEFT OVARY: Obscured by bowel gas FREE FLUID: None. US/Transvaginal Non- IMPRESSION: 1.2 cm complex right ovarian physiologic, likely hemorrhagic cyst. Preserved right ovarian Doppler vascular flow. Obscured left ovary. Unremarkable uterus. Electronically Signed: Bryant Summers MD at 0:42 EST ,
[2022-06-11] MEDS: Ketorolac 30 MG/ML Syringe IV (23:45)
[2022-06-11 23:54] LABS: Mucous, Urine 0 SEEN /hpf (<or=2+); Red Blood Cells-Urine 0 SEEN /hpf (0-5); Squamous Epithelial Cells - UA 0 SEEN /hpf (5-10)
[2022-06-11 23:54] LABS: Absolute Neutrophil Count 4.2 X10^3/uL (2.0-7.7); Basophil# 0.06 X10^3/uL; Basophil% 0.7 % (0-1); Eosinophil# 0.12 X10^3/uL; Eosinophils% 1.4 % (0-5); Hematocrit 34.4 % (37-47); Hemoglobin 11.3 g/dL (12.0-15.0); Lymphocyte % 40.3 % (19-41); Mean Corp Hgb Conc 32.8 g/dL (32-36); Mean Corpuscular Hgb 29.7 pg (27.0-32.0); Mean Corpuscular Volume 90.5 fL (81-99); Mean Platelet Vol. 9.8 fl (6.2-12.0); Monocyte# 0.59 X10^3/uL; NRBC Flagged by Analyzer 0 % (0-5); Neutrophil # 4.24 X10^3/uL (2.7-7.7); Neutrophil % 50.4 % (47-70); Platelet Count 494 K/mm3 (150-450); RBC Distribution Width CV 16.5 % (11.6-14.6); RBC Distribution Width SD 55.1 fl (35.1-43.9); White Blood Count 8.4 K/mm3 (4.4-11.0)
[2022-06-11 23:57] LABS: Color, Urine Yellow (Yellow); Glucose, Dipstick 1000 mg/dl (Normal); Ketone-Dipstick Negative (Negative); Leukocyte Esterase-Dipstick 500 /ul (Negative); Nitrite-Dipstick Positive (Negative); Occult Blood-Urine 150 /ul (Negative); Protein-Dipstick 30 mg/dl (Negative); Urine Bilirubin Dipstick Negative (Negative); Urine Clarity Sl. Cloudy (Clear); Urine Urobilinogen Normal (Normal)
[2022-06-12 00:03] LABS: Bacteria 4+ /hpf (None Seen); White Blood Cells 25-50 SEEN /hpf (0-5)
[2022-06-12 00:03] LABS: International Normalized Ratio 3.5; Prothrombin Time (Protime)PT. 34.5 SECONDS (11.7-14.9)
[2022-06-12 00:13] LABS: Anion Gap 5 (5-15); BUN 11 mg/dL (7-18); BUN/Creat Ratio 13.2 RATIO (10-20); Calcium,Total 8.5 mg/dL (8.5-10.1); Chloride 109 mmol/L (98-107); Creatinine, Serum 0.84 mg/dL (0.55-1.02); EST Glomerular Filtration Rate 76 mL/min (>60); Est Glom Filt Rate - Afr Amer 92 mL/min (>60); Estimated Creatinine Clearance 76.19 ml/min; Glucose 249 mg/dL (74-106); Potassium 3.7 mmol/L (3.5-5.1); Sodium Level 139 mmol/L (136-145)
--- NOTE | 2022-06-12 00:17 | EX.ED.DYSGE1 ---
HPI History of Present Illness Chief Complaint: Other, Pain/Inj Narrative Narrative: Patient is a 52-year-old female with past medical history of diabetes GERD CVA DVT and long-term use of anticoagulation. She was seen in April 2022 and found to have 3 right-sided ovarian cysts largest measuring 1.8 cm in size. Patient states that she followed up with [facility] at that time and their plan was to monitor her and have her reevaluated by ultrasound next month. Patient states in the last 2 days she has had increasing pain in the right lower quadrant without trauma or excessive activity. She states she has had [id number] medications with no symptom improved. She denies any fevers or chills nausea vomiting diarrhea or constipation. She denies any vaginal bleeding or dysuria at this time. 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5 mg PO DAILY DVT 12/14/19 [History Last Taken 12/10/20] aspirin 81 mg tablet,delayed release 81 mg PO DAILY 04/03/20 [History Last Taken Unknown] biotin 5,000 mcg disintegrating tablet 5,000 mcg PO DAILY 04/03/20 [History Last Taken Unknown] pantoprazole 40 mg tablet,delayed release 40 mg PO DAILY 04/03/20 [History Last Taken Unknown] doxepin 10 mg capsule 10 mg PO PRN PRN Sleep 12/14/20 [History Last Taken Unknown] escitalopram oxalate 20 mg tablet (Lexapro) 20 mg PO DAILY 12/14/20 [History Last Taken Unknown] lisinopril 2.5 mg tablet 2.5 mg PO DAILY 12/14/20 [History Last Taken 12/18/20 04:00 2.5 mg] sennosides 8.6 mg-docusate sodium 50 mg tablet (Senexon-S) 1 tab PO BID 12/14/20 [History Last Taken Unknown] sucralfate 1 gram tablet 1 g PO QACHS #90 tabs 12/18/20 [Rx Last Taken Unknown] cefaclor 500 mg capsule 500 mg PO TID 7 days #21 caps 03/10/21 [Rx Last Taken Unknown] polysaccharide iron complex 150 mg iron capsule See Rx Instructions .Route .COMPLEX #180 caps 11/27/21 [Rx Last Taken Unknown] norethindrone acetate 5 mg tablet (Aygestin) 5 mg PO .COMPLEX #45 tabs 05/28/22 [Rx Last Taken Unknown] cephalexin 500 mg capsule 500 mg PO TID 7 days #21 caps 06/12/22 [Rx Last Taken Unknown] oxycodone-acetaminophen 5 mg-325 mg tablet (Percocet) 1 tab PO Q6H PRN pain 3 days #12 tabs 06/12/22 [Rx Last Taken Unknown] Allergy/AdvReac Type Severity Reaction Status Date / Time latex Allergy Mild rash Verified 06/11/22 23:14 Penicillins [PCN] Allergy Hives Verified 06/11/22 23:14 Family History Brother Diabetes Father Diabetes Mother Diabetes Uncle Diabetes Skin cancer Colon cancer Uncle Diabetes Aunt Breast cancer Surgical History H/O lithotripsy H/O tubal ligation History of embolectomy Hx of cholecystectomy Hx of partial nephrectomy Social History household members: family current occupational status: employed current occupation: [employer] history of recent travel: No sexually active: No Smoking Status: Current every day smoker tobacco type: cigarettes alcohol intake: never substance use type: does not use what type of physical activity do you participate in: other seatbelt use: always do you feel safe at home: Yes additional social history: single ROS ROS ED Constitutional Constitutional ED: Denies chills or fever(s) ENT ENT ED: Denies sore throat Cardiovascular Cardiovascular: Denies chest pain Respiratory/Chest Respiratory/Chest: Denies cough or dyspnea Gastrointestinal Gastrointestinal: Reports abdominal pain; Denies diarrhea, nausea or vomiting Genitourinary Genitourinary ED: Denies dysuria or hematuria Musculoskeletal Musculoskeletal: Denies back pain or myalgias Integumentary Denies rash Neurologic Neurologic: Denies headache(s) Hematologic/Lymphatic Hematologic/Lymphatic: Reports easy bleeding and easy bruising EXAM Physical Exam Const Vital Signs: 06/11/22 23:10 06/12/22 01:06 Temperature 97.6 F L Temperature Source Temporal Pulse Rate 82 68 Respiratory Rate 15 15 Blood Pressure 134/68 H Blood Pressure Mean 90 Pulse Ox 100 98 Oxygen Delivery Method Room Air Positive well nourished and well developed General Appearance ED: well developed HEENT Reports moist mucous membranes Eyes PERRL and EOMs intact bilaterally General Eye ED: Negative for pale conjunctiva or scleral icterus Neck supple Resp normal respiratory effort and clear to auscultation bilaterally Cardio regular rate and regular rhythm Rate: other Other Details: Radial pulses are plus 2 out of 4 bilaterally are equal and symmetric GI non-distended and no masses GI Narrative: Abdomen is soft and nondistended with normoactive bowel sounds. There is pain on palpation in the suprapubic and right lower quadrant region without voluntary guarding or rigidity. No pulsatile mass or fluid wave. Negative heel strike psoas and obturator signs. Auscultation: normoactive bowel sounds Palpation: soft Back/Spine no CVA tenderness Extremity normal to inspection Neuro oriented x3 and CN's II-XII intact bilaterally Sensorium / Orientation: alert Psych mental status grossly normal Skin no rashes or lesions noted General Skin Exam: Negative for jaundice MDM MDM MDM Narrative Medical decision making narrative: Patient presented to the ER with stable vitals but had pain that came on suddenly in the right lower quadrant and has a known history of ovarian cyst on that side. Therefore I did have concern that she had developed a torsion and elected perform a repeat ultrasound. Without flank pain I had a low concern for kidney stone. Basic blood work was obtained and it shows no signs of acute kidney injury and her INR is slightly supratherapeutic at 3.5 however she is not requiring a blood transfusion as her hemoglobin is stable at 11.3. She is also diabetic and spilling a large amount of sugar in her urine but she does not have an anion gap or lactic acidosis and her serum bicarb is normal. Urine shows changes consistent with infection and patient does not have dysuria but she does have suprapubic pain on exam and therefore I will send this for culture and start her on antibiotics. However at this time as torsion has been ruled out and she has no signs of DKA or HHS or acute kidney injury associated with the UTI or urosepsis she can be discharged home with outpatient follow-up Lab Data Attestation: I reviewed the patient's lab results. Labs: Laboratory Results - last 24 hr 06/11/22 06/11/22 06/11/22 23:40 23:40 23:40 WBC 8.4 RBC 3.80 L Hgb 11.3 L Hct 34.4 L MCV 90.5 MCH 29.7 MCHC 32.8 RDW Std Deviation 55.1 H RDW Coeff of Edvin 16.5 H Plt Count 494 H MPV 9.8 Immature Gran % (Auto) 0.200 Neut % (Auto) 50.4 Lymph % (Auto) 40.3 [place] % (Auto) 7.0 Eos % (Auto) 1.4 Baso % (Auto) 0.7 Absolute Neuts (auto) 4.2 Absolute Lymphs (auto) 3.40 Nucleated RBC % 0 PT 34.5 H INR 3.5 Sodium 139 Potassium 3.7 Chloride 109 H Carbon Dioxide 25.0 Anion Gap 5 BUN 11 Creatinine 0.84 Estim Creat Clear Calc 76.19 Est GFR (MDRD) Af Amer 92 Est GFR (MDRD) Non-Af 76 BUN/Creatinine Ratio 13.2 Glucose 249 H Lactic Acid Calcium 8.5 Urine Color Urine Clarity Urine pH Ur Specific [place] Urine Protein Urine Glucose (UA) Urine Ketones Urine Occult Blood Urine Nitrite Urine Bilirubin Urine Urobilinogen Ur Leukocyte Esterase Urine RBC Urine WBC Ur Squamous Epith Cells Urine Bacteria Urine Mucus 06/11/22 06/11/22 23:40 23:41 WBC RBC Hgb Hct MCV MCH MCHC RDW Std Deviation RDW Coeff of Edvin Plt Count MPV Immature Gran % (Auto) Neut % (Auto) Lymph % (Auto) [place] % (Auto) Eos % (Auto) Baso % (Auto) Absolute Neuts (auto) Absolute Lymphs (auto) Nucleated RBC % PT INR Sodium Potassium Chloride Carbon Dioxide Anion Gap BUN Creatinine Estim Creat Clear Calc Est GFR (MDRD) Af Amer Est GFR (MDRD) Non-Af BUN/Creatinine Ratio Glucose Lactic Acid 1.0 Calcium Urine Color Yellow Urine Clarity Sl. Cloudy Urine pH 6.0 Ur Specific [place] 1.010 Urine Protein 30 H Urine Glucose (UA) 1000 H Urine Ketones Negative Urine Occult Blood 150 H Urine Nitrite Positive H Urine Bilirubin Negative Urine Urobilinogen Normal Ur Leukocyte Esterase 500 H Urine RBC 0 SEEN Urine WBC 25-50 SEEN Ur Squamous Epith Cells 0 SEEN Urine Bacteria 4+ Urine Mucus 0 SEEN Radiography Diagnostic Testing: Clinical Impression(s) from Imaging Studies Transvaginal US 06/11/22 23:34 IMPRESSION: 1.2 cm complex right ovarian physiologic, likely hemorrhagic cyst. Preserved right ovarian Doppler vascular flow. Obscured left ovary. Unremarkable uterus. Electronically Signed: Bryant Summers MD at 0:42 EST Reading Location ID and State: [facility], [facility] / [place] Tel , Service support , Discharge Plan Triage Chief Complaint: Other, Pain/Inj ED Provider: Vincent Paniagua Dx/Rx/DC Orders Clinical Impression: Right ovarian cyst, UTI (urinary tract infection), Current use of shelter anticoagulation, Diabetes Instructions: Urinary Tract Infections in Women, ED Ovarian Cyst Prescriptions: New cephalexin 500 mg capsule 500 mg PO TID 7 Days Qty: 21 0RF oxycodone-acetaminophen [Percocet] 5-325 mg tablet 1 tab PO Q6H PRN (Reason: pain) 3 Days Qty: 12 0RF No Action metformin 500 MG tablet 1,000 mg PO BID Label Comments: atorvastatin 40 MG tablet 80 mg PO QHS clopidogrel 75 MG tablet 75 mg PO DAILY warfarin 5 MG tablet 6.5 mg PO DAILY aspirin 81 MG tablet,delayed release (DR/EC) 81 mg PO DAILY pantoprazole 40 MG tablet 40 mg PO DAILY biotin 5,000 MCG tablet,disintegrating 5,000 mcg PO DAILY sennosides-docusate sodium [Senexon-S] 8.6-50 mg tablet 1 tab PO BID Label Comments: TAKE 1 TABLET BY MOUTH TWICE A DAY NEEDED FOR 30 DAYS doxepin 10 mg capsule 10 mg PO PRN PRN (Reason: Sleep) lisinopril 2.5 mg tablet 2.5 mg PO DAILY Label Comments: TAKE 1 TABLET BY MOUTH EVERY DAY escitalopram oxalate [Lexapro] 20 mg tablet 20 mg PO DAILY Label Comments: TAKE 1 TABLET BY MOUTH EVERY DAY cefaclor 500 mg capsule 500 mg PO TID 7 Days Qty: 21 0RF sucralfate 1 gram tablet 1 g PO QACHS Qty: 90 0RF Rx Instructions: Take 1 hour before meals and at bedtime polysaccharide iron complex 150 mg iron capsule See Rx Instructions .ROUTE .COMPLEX Qty: 180 2RF Dose Instruction: TAKE 1 CAPSULE BY MOUTH TWICE A DAY Rx Instructions: TAKE 1 CAPSULE BY MOUTH TWICE A DAY norethindrone acetate [Aygestin] 5 mg tablet 5 mg PO .COMPLEX Qty: 45 0RF Rx Instructions: 5 mg PO tid until bleeding stops X 24 hr then bid to finish Rx Stand Alone Forms: ED Work / School Excuse Primary Care Provider: Shashank Tai Chi Referrals: Yaquelin Raygoza MD [Med Staff - Active Staff] - Shashank Tai Chi, MD [Primary Care Provider] - Activity Restrictions/Additional Instructions: Your Coumadin value was 3.5 today which is slightly high. Since the antibiotic will raise this please hold your Coumadin dose for the next 2 days. Please follow-up with your family doctor and [facility] for repeat evaluation and return to the ER should you have any further concerns Disposition Disposition: Home, Self Care Discharge Date/Time: 06/12/22 01:20
[2022-06-12] MEDS: Ceftriaxone 1 GM/50 ML BAG IV (00:36)
[2022-06-12 01:06] VITALS: PULSE 68; RESP 15; O2SAT 98
== END 2022-06-12 01:20 | disposition home or self-care (01) ==
PROVIDERS: Emergency Provider Emergency Medicine; PCP Family Medicine Geriatric Medicine; Visit Provider Emergency Medicine
DX: N83.201 Unspecified ovarian cyst, right side (principal); E11.9 Type 2 diabetes mellitus without complications; N39.0 Urinary tract infection, site not specified; F17.210 Nicotine dependence, cigarettes, uncomplicated; Z86.718 Personal history of other venous thrombosis and embolism; Z86.73 Personal history of transient ischemic attack (TIA), and cerebral infarction without residual deficits; Z79.01 Long term (current) use of anticoagulants
CPT/HCPCS: 76830; 80048; 81001; 83605; 85025; 85610; 87077; 87086; 87088; 87186; 96365; 96375; 99282; A4216

== ENCOUNTER → 2022-07-04 | Outpatient (CLI) | payer BC, SELFPAY ==
--- NOTE | 2022-07-04 13:10 | CT_ITS ---
STUDY: CT ABDOMEN AND PELVIS WITHOUT CONTRAST REASON FOR EXAM: Female, 52 years old. Right-sided pelvic pain. RADIATION DOSAGE (If Supplied By Facility): CTDIvol = ( 10.66 ) mGy, DLP = ( 609.83 ) mGycm TECHNIQUE: Transaxial images were obtained from the dome of the diaphragm to the symphysis pubis without oral contrast, and without intravenous contrast. Sagittal and coronal images were reconstructed. Individualized dose optimization techniques were used for this CT. COMPARISON: Comparison is made with prior examination 03/10/2021. FINDINGS: The visualized lung bases are unremarkable. The visualized portions of the heart are within normal limits. Normal liver. There are surgical clips in the gallbladder fossa consistent with a prior cholecystectomy. Normal spleen. Normal pancreas. Normal bilateral adrenal glands. Normal right kidney. Stable mild fullness of the left renal pelvis although no obstructive calculus is seen. Partial duplication of the left renal collecting system. Normal visualized stomach. Normal small intestine. There are scattered colonic diverticula consistent with diverticulosis. The appendix is visualized and appears normal. Endoluminal stent grafting is seen in the distal portion of the abdominal aorta. Normal inferior vena cava. There is borderline retroperitoneal lymphadenopathy with enlarged nodes no greater than 10mm in the short axis diameter. Multiple small lymph nodes are seen within the mesentery. Normal urinary bladder. Normal abdominal wall. Exaggerated lumbar lordosis. CT/Abdomen/Pelvis without Cont IMPRESSION: Status post cholecystectomy. Multiple small retroperitoneal lymph nodes as well as tiny lymph nodes in the root of the mesentery. Prior aortic stenting. Electronically Signed: Bandar Garcia MD at 14:11 EST ,
== END | disposition home or self-care (01) ==
LOC: CT 13:08
PROVIDERS: PCP Family Medicine Geriatric Medicine; Referring Provider Obstetrics & Gynecology; Visit Provider Obstetrics & Gynecology
DX: R10.2 Pelvic and perineal pain (principal); Z90.49 Acquired absence of other specified parts of digestive tract
CPT/HCPCS: 74176

== ENCOUNTER 2022-07-09 05:52 | Day surgery (SDC) | payer BC, SELFPAY ==
[2022-07-09] VITALS (10 sets, daily range): BP systolic 87–119; BP diastolic 50–85; PULSE 50–76; RESP 12–18; TEMP 36–36.4; O2SAT 94–99; BMI 28.5
--- NOTE | 2022-07-09 | EMB_PTH ---
PATIENT: ROGERIO KIRKLAND [place] [facility] [place][id number] AGE/SX: 52/F ROOM: RE07/09/[address]: Dr. Lolis Monge DO : 1970 BED: DIS: 07/09/2022 SPEC #: [id number] RECD: 07/09/22 11:22 STATUS: KEI RERandall #: [id number] VICKY: 07/09/22 00:[address]: Lolis Monge DEPT: SURGICAL PATHOLOGY RECD BY: Jese Damian ENTERED: 07/09/22 11:22 SP TYPE: ENDOM BX/C LYDIA DR: Dr. Shashank Tai MD Tissues: Endometrium, NOS Procedures: Surgery Specimen Level IV HEADER OPERATION: Hysteroscopy, D & C Yanni PRE-OP DIAGNOSIS: Postmenopausal bleeding TISSUE SUBMITTED: Endometrial curettings MICROSCOPIC DIAGNOSIS Endometrial curettings: Proliferative endometrium. Fragments of benign ecto- and endocervical epithelium. SHABNAM 07/10/2022 COMMENT Please make reference to previous specimen [id number], endometrium biopsy with diagnosis of weakly proliferative endometrium. MICROSCOPIC DESCRIPTION Slides are reviewed. GROSS DESCRIPTION Received in formalin is one container labeled with the patient name and designated endometrial curretting. The specimen consists of scant fragments of negro mucoid tissue. The specimen is totally submitted for cell block preparation in one cassette. /AM:karrie 07/10/2022 TC:4 CPT:
[2022-07-09 06:38] LABS: Internal QC Validated? YES +Cl - CLEAR BKGD
[2022-07-09 06:39] LABS: Pregnancy, Urine Negative Negative
[2022-07-09] MEDS: Lactated Ringers 1,000 ML 15 ML IV ×2 (06:46→08:39)
[2022-07-09 07:30] LABS: Bedside Glucose 180 mg/dL (74-106)
--- NOTE | 2022-07-09 07:30 | PCM.HP.BLA ---
History and Physical Date of Admission: 07/09/22 Intake Vital Signs ? 06/11/2322:10 06/14/2309:21 06/14/2309:22 Height 5 ft 7 in 5 ft 7 in 5 ft 7 in Weight: 185 lb 193 lb 6 oz ? BMI 29.0 30.2 ? BP 134/68 H 133/73 H ? Respiration 15 ? ? Pulse 82 ? ? Temp 97.6 F L ? ? Pulse Oximetry (%) 100 ? ? Intake Visit Reasons:?menorrhagia, wanting FMLA [employer] Operator Required: No Is patient in pain?: Yes Pain scale (1-10): 5 Allergies latex Allergy (Mild, Verified 06/14/22 10:21) rashPenicillins [PCN] Allergy (Verified 06/14/22 10:21) Hives Medications metformin 500 mg tablet 1,000 mg PO BID diabetes 02/28/14 [History Confirmed 06/14/22] atorvastatin 40 mg tablet 80 mg PO QHS cholesterol 11/26/19 [History Confirmed 06/14/22] clopidogrel 75 mg tablet 75 mg PO DAILY 12/14/19 [History Confirmed 06/14/22] warfarin 5 mg tablet 6.5 mg PO DAILY DVT 12/14/19 [History Confirmed 06/14/22] aspirin 81 mg tablet,delayed release 81 mg PO DAILY 04/03/20 [History Confirmed 06/14/22] biotin 5,000 mcg disintegrating tablet 5,000 mcg PO DAILY 04/03/20 [History Confirmed 06/14/22] pantoprazole 40 mg tablet,delayed release 40 mg PO DAILY 04/03/20 [History Confirmed 06/14/22] doxepin 10 mg capsule 10 mg PO PRN PRN Sleep 12/14/20 [History Confirmed 06/14/22] escitalopram oxalate 20 mg tablet (Lexapro) 20 mg PO DAILY 12/14/20 [History Confirmed 06/14/22] lisinopril 2.5 mg tablet 2.5 mg PO DAILY 12/14/20 [History Confirmed 06/14/22] sennosides 8.6 mg-docusate sodium 50 mg tablet (Senexon-S) 1 tab PO BID 12/14/20 [History Confirmed 06/14/22] sucralfate 1 gram tablet 1 g PO QACHS #90 tabs 12/18/20 [Rx Confirmed 06/14/22] cefaclor 500 mg capsule 500 mg PO TID 7 days #21 caps 03/10/21 [Rx Confirmed 06/14/22] polysaccharide iron complex 150 mg iron capsule See Rx Instructions .Route .COMPLEX #180 caps 11/27/21 [Rx Confirmed 06/14/22] norethindrone acetate 5 mg tablet (Aygestin) 5 mg PO .COMPLEX #45 tabs 05/28/22 [Rx Confirmed 06/14/22] cephalexin 500 mg capsule 500 mg PO TID 7 days #21 caps 06/12/22 [Rx Confirmed 06/14/22] oxycodone-acetaminophen 5 mg-325 mg tablet (Percocet) 1 tab PO Q6H PRN pain 3 days #12 tabs 06/12/22 [Rx Confirmed 06/14/22] Post menopausal: No Patient : No : No PFSH Medical History? 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 H/O lithotripsy H/O tubal ligation History of embolectomy Hx of cholecystectomy Hx of partial nephrectomy Family History? Brother DiabetesFather DiabetesMother DiabetesUncle Diabetes Skin cancer Colon cancerUncle DiabetesAunt Breast cancer Social History? household members:? family current occupational status:? employed current occupation:? [employer] history of recent travel:? No sexually active:? No Smoking Status:? Current every day smoker tobacco type: cigarettes alcohol intake:? never substance use type:? does not use what type of physical activity do you participate in:? other seatbelt use:? always do you feel safe at home:? Yes additional social history:? single HPI menorrhagia, wanting FMLA Details: ROGERIO KIRKLAND is a 52 year old who presents for follow up ultrasound report, er visit, and treatment for abnormal bleeding. pt suffered an aortic blood clot and is on coumadin + plavix since 2019 an started having bleeding in April of 2022. She also has cramping and right lower quadrant pain. she has been on progesterone since 05/07 and bleeding stopped but pain seems to be worse. in April ER ultrasound showed a 1.8 cm right ovarian cyst. on 06/11 the cyst decreased in size to 1.2 cm. EMB was performed on 05/07 and found to be benign. ultrasound also shows that her uterus is 6 cm. History ? ? ? 4 ? Elective abortions ? Hx Para ? ? ? 4 ? Spontaneous abortions ? Hx # Term Pregnancies ? Ectopic pregnancies ? Hx # Pregnancies ? Multiple births ? # of living children ? ? ? 4 Past Pregnancies Del. Date Name GA/Weeks Outcome Route Bth Weight Gen Labor Lgth Anesthesia Del Locatn Provider FOB Unknown Christopher ? 1995 ? Unknown Yeison ? 1996 ? Unknown Justin ? 1997? Unknown Christina ? 2000 ? ROS Const ROS Unobtainable: All systems reviewed & are unremarkable except as noted in H Resp Resp: Reports system reviewed and no additional complaints, except as documented; Denies cough GI GI: Reports as per HPI Psych Psych: Reports system reviewed and no additional complaints, except as documented Exam Const General: cooperative, healthy appearing, comfortable and no acute distress Resp Effort & Inspection: normal respiratory effort General: bimanual renal exam normal bilaterally External Female Exam: normal appearance of the urethra Urethra: normal appearance of the urethra Speculum Exam - Vagina: normal appearance of the vagina Speculum Exam - Cervix: normal appearance of the cervix Bimanual Exam- Adnexa, other: normal adnexae and normal Pelvic Support: normal Skin General: no rashes or lesions noted Psych Appearance: grossly normal Speech and Movement: speech and movement normal Coding Level of Care Code Off vis,est,level 4 Diagnoses Postmenopausal bleeding? N95.0 Pelvic pain? R10.2 Menorrhagia with irregular cycle? N92.1 Assessment and Plan Assessment and Plan (1) Postmenopausal bleeding: ?Status:?Acute ?Comment: EMB pending. Rx aygestin ?Plan: continue progesterone and plan for hysteroscopy d&c ablation After discussing the patient's diagnosis and treatment plan options, patient wishes to proceed with surgical management.? I have discussed with the patient the risks, benefits, and alternatives of the procedure which include but are not limited to risks of anesthesia, bleeding, infection, possible damage to bowel, bladder, or surrounding vasculature which could lead to additional surgery to evaluate any complications.? Patient agrees to procedure and wishes to proceed.? ACOG/uptodate references given for additional information regarding procedure.? (2) Pelvic pain: ?Status:?Acute ?Plan: do not suspect pain coming from ovary. will order CT (3) Menorrhagia with irregular cycle: plan for hysteroscopy dilation and curettage merly ablation
[2022-07-09] MEDS: Lidocaine 1% (20 ml mdv) 20 ML Vial (07:44)
--- NOTE | 2022-07-09 08:03 | PCM.OP.BLANK ---
Operative Report Date of Procedure: 07/09/22 preoperative diagnosis: postmenopausal bleeding on anticoagulants Postoperative diagnosis:postmenopausal bleeding on anticoagulatns Procedure: hysteroscopy D&C, Yanni ablation Surgeon: Dr. Lolis Monge DO EBL: minimal urine output: 30cc findings: atrophic appearing uterus specimens removed: endometrial curettings Details of the procedure: Patient was prepped and draped in a normal sterile fashion under MAC anesthesia. A weighted speculum was placed in the vagina and the anterior lip of the cervix was grasped with a single-tooth tenaculum. A paracervical block was placed with 1% lidocaine. Cervix was progressively dilated to allow passage of a 5 mm hysteroscope. The lining was fully visualized and noted to have an atrophic appearing lining. Uterine sounded to 6 cm. The cavity only was 4 cm. Curettage was performed and specimen was sent to pathology. The yanni device was inserted into the uterus and activated after appropriate safety checks. The burn cycle took place for 2 minutes. The device was removed and a second look with the hysteroscope showed adequate charing of the endometrium. All instruments were removed from the vagina and excellent hemostasis was noted. Patient was awoken and taken to recovery in stable condition. Procedures Urinary/Genital 52xxx-[id number]: 17540 Hysteroscopy, EMC,Polypectomy Multi Select Codes Urinary/Genital Urinary/Genital CPT Codes: 05140 Hysteroscopy,EMC, Polypectomy
--- NOTE | 2022-07-09 08:07 | DCINST_ITS ---
Discharge Instructions Diet Discharge Diet: No restrictions Activity Discharge Activity: Return to Normal Activity, May Shower and May Take a Tub Bath (after 1 week) May resume sexual activity in: 1-2 weeks Weight Bearing Status: Weight bearing as tolerated Lifting Restrictions: none Dressing / Incision Call your doctor if you observe: Fever of 101 or Higher, Using more than 1 pad per hour, Shortness of breath and Uncontrolled pain Follow Up Care Please Follow Up With: Lolis Monge DO When: Call [phone] to schedule appointment. Test Results: Test results from this visit will be discussed in further detail at your follow- up appointment, if applicable. Discharge Plan Admission Primary Reason for Your Visit: D&C and uterine ablation Attending Provider: Lolis Monge Primary Care Provider: Shashank Tai Chi Discharge Orders/Prescriptions Prescriptions: Continued metformin 500 MG tablet 1,000 mg PO BID Label Comments: atorvastatin 40 MG tablet 80 mg PO QHS clopidogrel 75 MG tablet 75 mg PO DAILY warfarin 5 MG tablet 6.5 mg PO DAILY aspirin 81 MG tablet,delayed release (DR/EC) 81 mg PO DAILY pantoprazole 40 MG tablet 40 mg PO DAILY biotin 5,000 MCG tablet,disintegrating 5,000 mcg PO DAILY sennosides-docusate sodium [Senexon-S] 8.6-50 mg tablet 1 tab PO BID Label Comments: TAKE 1 TABLET BY MOUTH TWICE A DAY NEEDED FOR 30 DAYS doxepin 10 mg capsule 10 mg PO PRN PRN (Reason: Sleep) escitalopram oxalate [Lexapro] 20 mg tablet 20 mg PO DAILY Label Comments: TAKE 1 TABLET BY MOUTH EVERY DAY oxycodone-acetaminophen [Percocet] 5-325 mg tablet 1 tab PO Q6H PRN (Reason: pain) 3 Days Qty: 12 0RF bupropion HCl 150 mg tablet sustained-release 12 hr 150 mg PO BID Label Comments: TAKE 1 TABLET ORALLY TWICE PER DAY FOR 90 DAYS pioglitazone 30 mg tablet 30 mg PO DAILY Label Comments: TAKE 1 TABLET ORALLY ONCE PER DAY FOR 30 DAYS naproxen 500 mg tablet 500 mg PO PRN PRN (Reason: Pain) Label Comments: TAKE 1 TABLET BY MOUTH TWICE A DAY X7DAYS WITH FOOD valsartan 160 mg tablet 160 mg PO DAILY Label Comments: TAKE 1 TABLET BY MOUTH EVERY DAY polysaccharide iron complex 150 mg iron capsule See Rx Instructions .ROUTE .COMPLEX Qty: 180 2RF Dose Instruction: TAKE 1 CAPSULE BY MOUTH TWICE A DAY Rx Instructions: TAKE 1 CAPSULE BY MOUTH TWICE A DAY Discontinued norethindrone acetate [Aygestin] 5 mg tablet 5 mg PO BID 30 Days Qty: 60 0RF Referrals / Follow Up: Shashank Tai Chi, MD [Primary Care Provider] - Disposition Disposition (needs filled in before D/C Order can be placed): Home, Self Care
[2022-07-09] MEDS: HYDROcodone Bitartrate/Apap 5/325 Tablet PO (10:12)
--- NOTE | 2022-07-09 11:10 | SUR.PHASEII ---
PATIENT STATES PAIN MEDICATION WAS ABLE TO HELP BRING DOWN THE PAIN. PAIN WAS NOT RELIEVED BUT DECREASED FROM AN 8/10 AND PATIENT WANTED TO GO HOME. PAIN MEDICATION WAS GIVEN AFTER NAUSEA MEDICATION BUT PATIENT STILL BECAME NAUSEOUS. PATIENT STATES SHE WOULD STILL PREFER TO GO HOME EVEN THOUGH NAUSEA WAS PRESENT. PATIENT WAS ABLE TO AMBULATE WITHOUT DIZZINESS. ABLE TO EAT AND DRINK WITH THE NAUSEA AND KEEP ORAL INTAKE DOWN. HAS MEDICATIONS TO TAKE AT HOME TO HELP CONTROL PAIN. PATIENT AND FAMILY VERBALIZE UNDERSTANDING AND REQUESTED DISCHARGE.
== END 2022-07-09 11:10 | disposition home or self-care (01) ==
LOC: SDC 05:53 → AC 05:53
PROVIDERS: PCP Family Medicine Geriatric Medicine; Referring Provider Obstetrics & Gynecology; Visit Provider Obstetrics & Gynecology
PROC: 0U5B8ZZ Destruction of Endometrium, Via Natural or Artificial Opening Endoscopic (ICD-10-PCS; CPT 58558; principal; 2022-07-09 07:15)
DX: N95.0 Postmenopausal bleeding (principal); N85.8 Other specified noninflammatory disorders of uterus; Z90.5 Acquired absence of kidney; Z90.49 Acquired absence of other specified parts of digestive tract; Z79.01 Long term (current) use of anticoagulants; Z98.51 Tubal ligation status; Z79.02 Long term (current) use of antithrombotics/antiplatelets; Z79.82 Long term (current) use of aspirin; Z79.84 Long term (current) use of oral hypoglycemic drugs; Z79.899 Other long term (current) drug therapy; F17.210 Nicotine dependence, cigarettes, uncomplicated; Z86.718 Personal history of other venous thrombosis and embolism
CPT/HCPCS: 58563; 00952; 81025; 82962; 86850; 86900; 86901; 88305; J7120; J2405

== ENCOUNTER 2022-07-30 02:40 | Emergency (ER) | payer BC, SELFPAY ==
[2022-07-30 02:42] VITALS: BP 136/71; PULSE 93; RESP 18; TEMP 36.2; O2SAT 99
--- NOTE | 2022-07-30 03:08 | EDS_ITS ---
HPI HPI - Female History of Present Illness Chief Complaint: Vag Bleeding Informant: patient Narrative Narrative: Presents with vaginal bleeding that started about 8 and hours ago. She states she is using a pad or tampon about every 20 to 30 minutes. She is having some clots also. She states she is not having any pain cramping or discomfort. She does not feel lightheaded weak or near syncopal. Patient did have a uterine ablation 3 weeks ago. She had had some spotting and then brown blood after that. However, she followed up on the and this was felt to be normal. It was slowly improving. That had stopped over the weekend. She then started the bright red bleeding about 8-1/2 hours ago. Patient is also on Plavix aspirin and Coumadin due to her complex medical history. She had her INR checked yesterday at her primary physician's office and it was 1.7. Patient has no urinary symptoms. She has no report of bleeding in any other areas including urine or gums. 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 Bruising Chronic cough Contraceptive management Depression Diabetes mellitus DVT (deep venous thrombosis) Easy bruising Excessive bleeding Gastric reflux History of echocardiogram History of kidney stones Injury of head and neck Leg cramps Leukocytosis Menorrhagia with irregular cycle Migraine headache Smoker Wears dentures Wears glasses Home Medications metformin 500 mg tablet 1,000 mg PO BID diabetes 02/28/14 [History Last Taken 11/26/19 16:00] atorvastatin 40 mg tablet 80 mg PO QHS cholesterol 11/26/19 [History Last Taken 11/25/19] clopidogrel 75 mg tablet 75 mg PO DAILY 12/14/19 [History Last Taken 07/05/22] warfarin 5 mg tablet 7 mg PO DAILY DVT 12/14/19 [History Last Taken 07/05/22] aspirin 81 mg tablet,delayed release 81 mg PO DAILY 04/03/20 [History Last Taken Unknown] biotin 5,000 mcg disintegrating tablet 5,000 mcg PO DAILY 04/03/20 [History Last Taken Unknown] pantoprazole 40 mg tablet,delayed release 40 mg PO DAILY 04/03/20 [History Last Taken 07/09/22] doxepin 10 mg capsule 10 mg PO PRN PRN Sleep 12/14/20 [History Last Taken Unknown] escitalopram oxalate 20 mg tablet (Lexapro) 20 mg PO DAILY 12/14/20 [History Last Taken Unknown] polysaccharide iron complex 150 mg iron capsule See Rx Instructions .Route .COMPLEX #180 caps 11/27/21 [Rx Last Taken Unknown] oxycodone-acetaminophen 5 mg-325 mg tablet (Percocet) 1 tab PO Q6H PRN pain 3 days #12 tabs 06/12/22 [Rx Last Taken Unknown] bupropion HCl 150 mg tablet,12 hr sustained-release 150 mg PO BID 07/05/22 [History Last Taken Unknown] pioglitazone 30 mg tablet 30 mg PO DAILY 07/05/22 [History Last Taken Unknown] valsartan 160 mg tablet 160 mg PO DAILY 07/05/22 [History Last Taken 07/09/22] oxycodone-acetaminophen 5 mg-325 mg tablet (Percocet) 1 tab PO Q6H PRN pain 3 days #10 tabs 07/09/22 [Rx Last Taken Unknown] naproxen 500 mg tablet 500 mg PO PRN PRN Pain #30 tabs 07/23/22 [Rx Last Taken Unknown] sennosides 8.6 mg-docusate sodium 50 mg tablet (Senexon-S) 1 tab PO BID #60 tabs 07/23/22 [Rx Last Taken Unknown] doxycycline monohydrate 100 mg capsule 100 mg PO BID #20 CAPSULES 07/30/22 [Rx Last Taken Unknown] medroxyprogesterone 10 mg tablet 10 mg PO DAILY #50 tabs 07/30/22 [Rx Last Taken Unknown] Allergy/AdvReac Type Severity Reaction Status Date / Time latex Allergy Mild rash Verified 07/23/22 11:50 Penicillins [PCN] Allergy Hives Verified 07/23/22 11:50 Family History Brother Diabetes Father Diabetes Mother Diabetes Uncle Diabetes Skin cancer Colon cancer Uncle Diabetes Aunt Breast cancer Surgical History H/O lithotripsy H/O tubal ligation History of embolectomy History of esophagogastroduodenoscopy (EGD) Hx of cholecystectomy Hx of partial nephrectomy Status post endometrial ablation Social History household members: family current occupational status: employed current occupation: [employer] history of recent travel: No sexually active: No Smoking Status: Current every day smoker tobacco type: cigarettes alcohol intake: never substance use type: does not use what type of physical activity do you participate in: other seatbelt use: always do you feel safe at home: Yes additional social history: single ROS ROS ED Constitutional Constitutional ED: Denies chills or fever(s) Cardiovascular Cardiovascular: Denies chest pain or palpitations Respiratory/Chest Respiratory/Chest: Denies cough or dyspnea Gastrointestinal Gastrointestinal: Denies abdominal pain, diarrhea, melena, nausea or vomiting Genitourinary Genitourinary ED: Reports other Details: See HPI ; Denies hematuria Musculoskeletal Musculoskeletal: Denies myalgias Integumentary Denies Abrasions or rash Neurologic Neurologic: Denies headache(s) or paresthesias Endocrine Endocrinology: Denies polydipsia or polyuria Hematologic/Lymphatic Hematologic/Lymphatic: Reports easy bleeding and easy bruising Allergic/Immunologic Allergic/Immunologic ED: Denies urticaria EXAM Physical Exam Narrative Exam Narrative: Patient is sitting in bed comfortably. She is awake alert and appropriate. She does not look notably pale. HEENT shows moist mucous membranes Eyes show no pallor. Lungs are clear. Heart is regular not tachycardic. I do not note a murmur. Abdomen is sounds and not tender. : No CVA tenderness. She does not have suprapubic tenderness. Pelvic exam will be reported separately. Extremities show no notable edema or or asymmetry. Skin shows no pallor diaphoresis or mottling. There is no abnormal or excessive bruising. Const Vital Signs: 07/30/22 02:42 07/30/22 04:29 Temperature 97.2 F L Temperature Source Temporal Pulse Rate 93 85 Respiratory Rate 18 15 Blood Pressure 136/71 H 117/62 Blood Pressure Mean 92 80 Pulse Ox 99 97 Oxygen Delivery Method Room Air Room Air MDM MDM MDM Narrative Medical decision making narrative: Pelvic exam was done with nurse Marianne in attendance. We did removal clot that was palm sized. Vaginal speculum exam shows some blood in the vault but it was not really increasing. This did look fresh though. I watched for a minute and this pulled did not get larger. No blood from the os with palpation on the lower abdomen. Patient's white count was slightly elevated. This is a little higher than back at the end of June. Her hemoglobin did come down from below 13-11.6 today. Her platelets were normal. Her INR was 1.8. Electrolytes show no marked abnormalities. There were slight variation of sodium renal function and glucose but these were small. I discussed the case with Dr. Raygoza. We discussed the patient, some of her complex history and being on aspirin Plavix and warfarin. We also discussed the labs and slight change from the end of June. But her hemoglobin is not that low. It was felt that the patient was safe to go home since her hemoglobin was high and she was relatively asymptomatic. We will start her on medroxyprogesterone. Although there is some risk of clot with this, she is on meds to prevent clot and we need to provide medicine to stop the bleeding. With the elevated white count we will also initiate doxycycline. First dose was given here. Medroxyprogesterone will be given is 10 mg 3 times a day for 2 days. Then 10 mg twice a day for 2 days and then once a day after that. Patient will follow-up with Dr. Monge. I had a talk with the patient that if she has heavy bleeding continued bleeding clots pain lightheadedness or any concerns she may need to return. At this time we hope that the medroxyprogesterone stops the bleeding but if it is not working she may need to come in the hospital. She may need admission and may even need surgery for this. But at this time she is stable. She has good follow-up. We will get her initiated on medicines. All questions were answered. Lab Data Attestation: I reviewed the patient's lab results. Labs: Laboratory Results - last 24 hr 07/30/22 07/30/22 07/30/22 03:00 03:00 03:00 WBC 15.2 H RBC 3.87 L Hgb 11.6 L Hct 35.5 L MCV 91.7 MCH 30.0 MCHC 32.7 RDW Std Deviation 48.6 H RDW Coeff of Edvin 14.5 Plt Count 420 MPV 10.0 Immature Gran % (Auto) 0.800 Neut % (Auto) 55.8 Lymph % (Auto) 35.3 [place] % (Auto) 5.9 Eos % (Auto) 1.3 Baso % (Auto) 0.9 Absolute Neuts (auto) 8.5 H Absolute Lymphs (auto) 5.37 H Nucleated RBC % 0 Differential Comment SCANNED PT 20.7 H INR 1.8 Sodium 135 L Potassium 3.8 Chloride 102 Carbon Dioxide 26.0 Anion Gap 7 BUN 20 H Creatinine 1.07 H Estim Creat Clear Calc 59.81 Est GFR (MDRD) Af Amer 69 Est GFR (MDRD) Non-Af 57 L BUN/Creatinine Ratio 18.7 Glucose 214 H Calcium 8.9 Discharge Plan Triage Chief Complaint: Vag Bleeding ED Provider: Michoacano Mello Dx/Rx/DC Orders Clinical Impression: Abnormal vaginal bleeding, Warfarin-induced coagulopathy Instructions: ED Dysfunctional Uterine Bleeding Prescriptions: New medroxyprogesterone 10 mg tablet 10 mg PO DAILY Qty: 50 0RF Rx Instructions: 1 tablet 3 times a day for 2 days. Then 1 tablet twice a day for 2 days. Then 1 tablet daily. doxycycline monohydrate 100 mg capsule 100 mg PO BID Qty: 20 0RF No Action naproxen 500 mg tablet 500 mg PO PRN PRN (Reason: Pain) Qty: 30 0RF sennosides-docusate sodium [Senexon-S] 8.6-50 mg tablet 1 tab PO BID Qty: 60 0RF metformin 500 MG tablet 1,000 mg PO BID Label Comments: atorvastatin 40 MG tablet 80 mg PO QHS clopidogrel 75 MG tablet 75 mg PO DAILY warfarin 5 MG tablet 7 mg PO DAILY aspirin 81 MG tablet,delayed release (DR/EC) 81 mg PO DAILY pantoprazole 40 MG tablet 40 mg PO DAILY biotin 5,000 MCG tablet,disintegrating 5,000 mcg PO DAILY doxepin 10 mg capsule 10 mg PO PRN PRN (Reason: Sleep) escitalopram oxalate [Lexapro] 20 mg tablet 20 mg PO DAILY Label Comments: TAKE 1 TABLET BY MOUTH EVERY DAY oxycodone-acetaminophen [Percocet] 5-325 mg tablet 1 tab PO Q6H PRN (Reason: pain) 3 Days Qty: 12 0RF bupropion HCl 150 mg tablet sustained-release 12 hr 150 mg PO BID Label Comments: TAKE 1 TABLET ORALLY TWICE PER DAY FOR 90 DAYS pioglitazone 30 mg tablet 30 mg PO DAILY Label Comments: TAKE 1 TABLET ORALLY ONCE PER DAY FOR 30 DAYS valsartan 160 mg tablet 160 mg PO DAILY Label Comments: TAKE 1 TABLET BY MOUTH EVERY DAY oxycodone-acetaminophen [Percocet] 5-325 mg tablet 1 tab PO Q6H PRN (Reason: pain) 3 Days Qty: 10 0RF polysaccharide iron complex 150 mg iron capsule See Rx Instructions .ROUTE .COMPLEX Qty: 180 2RF Dose Instruction: TAKE 1 CAPSULE BY MOUTH TWICE A DAY Rx Instructions: TAKE 1 CAPSULE BY MOUTH TWICE A DAY Primary Care Provider: Shashank Tai Chi Referrals: Lolis Monge DO [Med Staff - Active Staff] - 1-2 Days if not improving Shashank Tai Chi, MD [Primary Care Provider] - Disposition Disposition: Home, Self Care
[2022-07-30 03:22] LABS: Absolute Lymphocyte Count 5.37 X10^3/uL (0.83-4.51); Absolute Neutrophil Count 8.5 X10^3/uL (2.0-7.7); Basophil# 0.13 X10^3/uL; Basophil% 0.9 % (0-1); Eosinophils% 1.3 % (0-5); Hematocrit 35.5 % (37-47); Hemoglobin 11.6 g/dL (12.0-15.0); Lymphocyte # 5.37 X10^3/ul (0.83-4.51); Lymphocyte % 35.3 % (19-41); Mean Corp Hgb Conc 32.7 g/dL (32-36); Mean Corpuscular Volume 91.7 fL (81-99); Monocyte% 5.9 % (0-10); NRBC Flagged by Analyzer 0 % (0-5); Neutrophil % 55.8 % (47-70); POSITIVE DIFFERENTIAL YES; POSITIVE MORPHOLOGY YES; Platelet Count 420 K/mm3 (150-450); RBC Distribution Width CV 14.5 % (11.6-14.6); RBC Distribution Width SD 48.6 fl (35.1-43.9); Red Blood Count 3.87 M/mm3 (4.2-5.4); White Blood Count 15.2 K/mm3 (4.4-11.0)
[2022-07-30 03:31] LABS: International Normalized Ratio 1.8; Prothrombin Time (Protime)PT. 20.7 SECONDS (11.7-14.9)
[2022-07-30 03:35] LABS: Anion Gap 7 (5-15); BUN 20 mg/dL (7-18); BUN/Creat Ratio 18.7 RATIO (10-20); Calcium,Total 8.9 mg/dL (8.5-10.1); Chloride 102 mmol/L (98-107); Creatinine, Serum 1.07 mg/dL (0.55-1.02); EST Glomerular Filtration Rate 57 mL/min (>60); Est Glom Filt Rate - Afr Amer 69 mL/min (>60); Estimated Creatinine Clearance 59.81 ml/min; Glucose 214 mg/dL (74-106); Potassium 3.8 mmol/L (3.5-5.1); Sodium Level 135 mmol/L (136-145)
[2022-07-30 03:36] LABS: Differential Indicated SCAN CRITERIA MET
[2022-07-30 03:55] LABS: Differential Comment SCANNED
[2022-07-30 04:29] VITALS: BP 117/62; PULSE 85; RESP 15; O2SAT 97
[2022-07-30] MEDS: Doxycycline 100 MG CAPSULE PO (04:32)
[2022-07-30 04:52] VITALS: BP 117/62; PULSE 85; RESP 15; O2SAT 97
== END 2022-07-30 04:53 | disposition home or self-care (01) ==
PROVIDERS: Emergency Provider Emergency Medicine; PCP Family Medicine Geriatric Medicine; Visit Provider Emergency Medicine
DX: N93.9 Abnormal uterine and vaginal bleeding, unspecified (principal); F17.210 Nicotine dependence, cigarettes, uncomplicated; R79.1 Abnormal coagulation profile; Z86.718 Personal history of other venous thrombosis and embolism; Z79.01 Long term (current) use of anticoagulants; Z79.82 Long term (current) use of aspirin
CPT/HCPCS: 80048; 85025; 85610; 86850; 86900; 86901; 99284

== ENCOUNTER 2022-07-31 11:24 | Emergency (ER) | payer BC, SELFPAY ==
[2022-07-31 11:25] VITALS: BP 116/59; PULSE 90; RESP 16; TEMP 36.4; O2SAT 98; BMI 29.8
[2022-07-31 11:39] VITALS: BP 107/73; BP 112/59; BP 115/72; PULSE 72
--- NOTE | 2022-07-31 12:10 | ED.VIS.FEGU ---
HPI HPI - Female History of Present Illness Chief Complaint: Dizziness Informant: patient Narrative Narrative: Patient states she has had vaginal bleeding for the past 2-3 days, 2-3 pads per hour every hour for the entire time. She states she had an endometrial ablation 3 weeks ago, because of heavy vaginal bleeding, and states that she really did not have any bleeding until a few days ago. Has been feeling lightheaded off and on. She states she tried to call her [employer] today but could not get a hold of anyone, she had a near syncopal episode and collapsed on the floor without losing consciousness, without injuring herself, and called EMS to bring her to the hospital. She has a history of thromboembolic disease. She appears to be on both clopidogrel and warfarin. 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 Bruising Chronic cough Contraceptive management Depression Diabetes mellitus DVT (deep venous thrombosis) Easy bruising Excessive bleeding Gastric reflux History of echocardiogram History of kidney stones Injury of head and neck Leg cramps Leukocytosis Menorrhagia with irregular cycle Migraine headache Smoker Wears dentures Wears glasses Home Medications metformin 500 mg tablet 1,000 mg PO BID diabetes 02/28/14 [History Last Taken 11/26/19 16:00] atorvastatin 40 mg tablet 80 mg PO QHS cholesterol 11/26/19 [History Last Taken 11/25/19] clopidogrel 75 mg tablet 75 mg PO DAILY 12/14/19 [History Last Taken 07/05/22] warfarin 5 mg tablet 7 mg PO DAILY DVT 12/14/19 [History Last Taken 07/05/22] aspirin 81 mg tablet,delayed release 81 mg PO DAILY 04/03/20 [History Last Taken Unknown] biotin 5,000 mcg disintegrating tablet 5,000 mcg PO DAILY 04/03/20 [History Last Taken Unknown] pantoprazole 40 mg tablet,delayed release 40 mg PO DAILY 04/03/20 [History Last Taken 07/09/22] doxepin 10 mg capsule 10 mg PO PRN PRN Sleep 12/14/20 [History Last Taken Unknown] escitalopram oxalate 20 mg tablet (Lexapro) 20 mg PO DAILY 12/14/20 [History Last Taken Unknown] polysaccharide iron complex 150 mg iron capsule See Rx Instructions .Route .COMPLEX #180 caps 11/27/21 [Rx Last Taken Unknown] oxycodone-acetaminophen 5 mg-325 mg tablet (Percocet) 1 tab PO Q6H PRN pain 3 days #12 tabs 06/12/22 [Rx Last Taken Unknown] bupropion HCl 150 mg tablet,12 hr sustained-release 150 mg PO BID 07/05/22 [History Last Taken Unknown] pioglitazone 30 mg tablet 30 mg PO DAILY 07/05/22 [History Last Taken Unknown] valsartan 160 mg tablet 160 mg PO DAILY 07/05/22 [History Last Taken 07/09/22] oxycodone-acetaminophen 5 mg-325 mg tablet (Percocet) 1 tab PO Q6H PRN pain 3 days #10 tabs 07/09/22 [Rx Last Taken Unknown] naproxen 500 mg tablet 500 mg PO PRN PRN Pain #30 tabs 07/23/22 [Rx Last Taken Unknown] sennosides 8.6 mg-docusate sodium 50 mg tablet (Senexon-S) 1 tab PO BID #60 tabs 07/23/22 [Rx Last Taken Unknown] doxycycline monohydrate 100 mg capsule 100 mg PO BID #20 CAPSULES 07/30/22 [Rx Last Taken Unknown] medroxyprogesterone 10 mg tablet 10 mg PO DAILY #50 tabs 07/30/22 [Rx Last Taken Unknown] Allergy/AdvReac Type Severity Reaction Status Date / Time latex Allergy Mild rash Verified 07/31/22 11:36 Penicillins [PCN] Allergy Hives Verified 07/31/22 11:36 Family History Brother Diabetes Father Diabetes Mother Diabetes Uncle Diabetes Skin cancer Colon cancer Uncle Diabetes Aunt Breast cancer Surgical History H/O lithotripsy H/O tubal ligation History of embolectomy History of esophagogastroduodenoscopy (EGD) Hx of cholecystectomy Hx of partial nephrectomy Status post endometrial ablation Social History household members: family current occupational status: employed current occupation: [employer] history of recent travel: No sexually active: No Smoking Status: Current every day smoker tobacco type: cigarettes alcohol intake: never substance use type: does not use what type of physical activity do you participate in: other seatbelt use: always do you feel safe at home: Yes additional social history: single ROS ROS ED Constitutional Constitutional ED: Reports malaise; Denies chills or fever(s) Eyes Eyes: Denies change in vision or diplopia ENT ENT ED: Denies rhinorrhea or sore throat Cardiovascular Cardiovascular: Reports as per HPI and lightheadedness; Denies chest pain, leg edema, palpitations or syncope Respiratory/Chest Respiratory/Chest: Denies cough or dyspnea Gastrointestinal Gastrointestinal: Denies abdominal pain, diarrhea, nausea or vomiting Genitourinary Genitourinary ED: Denies dysuria or hematuria Musculoskeletal Musculoskeletal: Denies back pain or neck pain Integumentary Denies abscess or rash Neurologic Neurologic: Denies headache(s), paresthesias or weakness Psychiatric Psychiatric: Denies anxiety or suicidal thoughts EXAM Physical Exam Const Vital Signs: 07/31/22 11:25 07/31/22 11:36 07/31/22 11:39 Temperature 97.5 F L Temperature Source Temporal Pulse Rate 90 Pulse Rate [Lying] 72 Respiratory Rate 16 Respiratory Effort Normal Non-Labored Respiratory Pattern Normal Blood Pressure 116/59 L Blood Pressure [Lying] 112/59 L Blood Pressure [Sitting (for 1 minute prior to obtaining)] 115/72 Blood Pressure [Standing (for 1 minute prior to obtaining)] 107/73 Blood Pressure Mean 78 Blood Pressure Mean [Lying] 76 Blood Pressure Mean [Sitting (for 1 minute prior to obtaining)] 86 Blood Pressure Mean [Standing (for 1 minute prior to obtaining)] 84 Pulse Ox 98 Oxygen Delivery Method Room Air 07/31/22 13:05 Temperature Temperature Source Pulse Rate 80 Pulse Rate [Lying] Respiratory Rate Respiratory Effort Respiratory Pattern Blood Pressure 104/57 L Blood Pressure [Lying] Blood Pressure [Sitting (for 1 minute prior to obtaining)] Blood Pressure [Standing (for 1 minute prior to obtaining)] Blood Pressure Mean 72 Blood Pressure Mean [Lying] Blood Pressure Mean [Sitting (for 1 minute prior to obtaining)] Blood Pressure Mean [Standing (for 1 minute prior to obtaining)] Pulse Ox 100 Oxygen Delivery Method Room Air Positive well nourished and well developed General Appearance ED: well developed and NAD HEENT Reports moist mucous membranes normocephalic and atraumatic Eyes PERRL and EOMs intact bilaterally Neck full ROM and supple Resp normal respiratory effort and clear to auscultation bilaterally Cardio regular rate, regular rhythm and no murmurs Rate: Negative for tachycardic GI non-tender and non-distended Auscultation: normoactive bowel sounds Palpation: soft Back/Spine no CVA tenderness General Back: other FROM Extremity normal to inspection General Extremety ED: Negative for edema, pulses abnormal or tenderness General Extremity: Negative for edema or pulses abnormal Neuro oriented x3, CN's II-XII intact bilaterally and no sensory deficits noted Sensorium / Orientation: awake and alert Motor Exam: strength 5/5 throughout Skin no rashes or lesions noted and no wounds MDM MDM MDM Narrative Medical decision making narrative: After delay, I was able to perform pelvic speculum exam with nurse commission for the blind director. On exam, there is a small amount of brown liquid in the vaginal vault no gross blood and no active bleeding. Labs noted, she does not have significant anemia, she was given IV fluids after orthostatics were negative but her pressure was a little on the low side, 90s. Her INR is therapeutic at 2.0, she is also on clopidogrel and aspirin. She is clinically hemodynamically stable at this time and not actively bleeding at the moment. However, she is on these medications partially because of a history of A-fib and history of an aortic thrombus. Lab Data Attestation: I reviewed the patient's lab results. Labs: Laboratory Results - last 24 hr 07/31/22 07/31/22 07/31/22 11:29 11:29 11:29 WBC 9.6 RBC 3.31 L Hgb 10.1 L Hct 30.3 L MCV 91.5 MCH 30.5 MCHC 33.3 RDW Std Deviation 49.3 H RDW Coeff of Edvin 14.6 Plt Count 404 MPV 10.1 Immature Gran % (Auto) 0.600 Neut % (Auto) 45.5 L Lymph % (Auto) 44.3 H [place] % (Auto) 5.9 Eos % (Auto) 2.6 Baso % (Auto) 1.1 H Absolute Neuts (auto) 4.4 Absolute Lymphs (auto) 4.27 Nucleated RBC % 0 PT 22.6 H INR 2.0 Sodium 141 Potassium 4.0 Chloride 107 Carbon Dioxide 28.0 Anion Gap 6 BUN 14 Creatinine 0.62 Estim Creat Clear Calc 103.22 Est GFR (MDRD) Af Amer 130 Est GFR (MDRD) Non-Af 107 BUN/Creatinine Ratio 22.6 H Glucose 217 H Calcium 9.3 Discharge Plan Triage Chief Complaint: Dizziness ED Provider: Wilson Castro Dx/Rx/DC Orders Clinical Impression: Abnormal vaginal bleeding, Warfarin-induced coagulopathy Instructions: ED Dysfunctional Uterine Bleeding Prescriptions: Continued naproxen 500 mg tablet 500 mg PO PRN PRN (Reason: Pain) Qty: 30 0RF sennosides-docusate sodium [Senexon-S] 8.6-50 mg tablet 1 tab PO BID Qty: 60 0RF metformin 500 MG tablet 1,000 mg PO BID Label Comments: atorvastatin 40 MG tablet 80 mg PO QHS clopidogrel 75 MG tablet 75 mg PO DAILY warfarin 5 MG tablet 7 mg PO DAILY aspirin 81 MG tablet,delayed release (DR/EC) 81 mg PO DAILY pantoprazole 40 MG tablet 40 mg PO DAILY biotin 5,000 MCG tablet,disintegrating 5,000 mcg PO DAILY doxepin 10 mg capsule 10 mg PO PRN PRN (Reason: Sleep) escitalopram oxalate [Lexapro] 20 mg tablet 20 mg PO DAILY Label Comments: TAKE 1 TABLET BY MOUTH EVERY DAY oxycodone-acetaminophen [Percocet] 5-325 mg tablet 1 tab PO Q6H PRN (Reason: pain) 3 Days Qty: 12 0RF bupropion HCl 150 mg tablet sustained-release 12 hr 150 mg PO BID Label Comments: TAKE 1 TABLET ORALLY TWICE PER DAY FOR 90 DAYS pioglitazone 30 mg tablet 30 mg PO DAILY Label Comments: TAKE 1 TABLET ORALLY ONCE PER DAY FOR 30 DAYS valsartan 160 mg tablet 160 mg PO DAILY Label Comments: TAKE 1 TABLET BY MOUTH EVERY DAY oxycodone-acetaminophen [Percocet] 5-325 mg tablet 1 tab PO Q6H PRN (Reason: pain) 3 Days Qty: 10 0RF medroxyprogesterone 10 mg tablet 10 mg PO DAILY Qty: 50 0RF Rx Instructions: 1 tablet 3 times a day for 2 days. Then 1 tablet twice a day for 2 days. Then 1 tablet daily. doxycycline monohydrate 100 mg capsule 100 mg PO BID Qty: 20 0RF polysaccharide iron complex 150 mg iron capsule See Rx Instructions .ROUTE .COMPLEX Qty: 180 2RF Dose Instruction: TAKE 1 CAPSULE BY MOUTH TWICE A DAY Rx Instructions: TAKE 1 CAPSULE BY MOUTH TWICE A DAY Primary Care Provider: Shashank Tai Chi Referrals: Lolis Monge DO [Med Staff - Active Staff] - 3-5 Days if not improving Shashank Tai Chi, MD [Primary Care Provider] - Disposition Disposition: Home, Self Care
[2022-07-31 12:28] LABS: Absolute Lymphocyte Count 4.27 X10^3/uL (0.83-4.51); Absolute Neutrophil Count 4.4 X10^3/uL (2.0-7.7); Basophil# 0.11 X10^3/uL; Basophil% 1.1 % (0-1); Eosinophil# 0.25 X10^3/uL; Eosinophils% 2.6 % (0-5); Hematocrit 30.3 % (37-47); Hemoglobin 10.1 g/dL (12.0-15.0); Lymphocyte # 4.27 X10^3/ul (0.83-4.51); Lymphocyte % 44.3 % (19-41); Mean Corp Hgb Conc 33.3 g/dL (32-36); Mean Corpuscular Hgb 30.5 pg (27.0-32.0); Mean Corpuscular Volume 91.5 fL (81-99); Mean Platelet Vol. 10.1 fl (6.2-12.0); Monocyte# 0.57 X10^3/uL; Monocyte% 5.9 % (0-10); NRBC Flagged by Analyzer 0 % (0-5); Neutrophil # 4.37 X10^3/uL (2.7-7.7); Neutrophil % 45.5 % (47-70); Platelet Count 404 K/mm3 (150-450); RBC Distribution Width CV 14.6 % (11.6-14.6); RBC Distribution Width SD 49.3 fl (35.1-43.9); Red Blood Count 3.31 M/mm3 (4.2-5.4); White Blood Count 9.6 K/mm3 (4.4-11.0)
[2022-07-31 12:34] LABS: Anion Gap 6 (5-15); BUN 14 mg/dL (7-18); BUN/Creat Ratio 22.6 RATIO (10-20); Calcium,Total 9.3 mg/dL (8.5-10.1); Chloride 107 mmol/L (98-107); Creatinine, Serum 0.62 mg/dL (0.55-1.02); EST Glomerular Filtration Rate 107 mL/min (>60); Est Glom Filt Rate - Afr Amer 130 mL/min (>60); Estimated Creatinine Clearance 103.22 ml/min; Glucose 217 mg/dL (74-106); Sodium Level 141 mmol/L (136-145)
[2022-07-31 12:35] LABS: Prothrombin Time (Protime)PT. 22.6 SECONDS (11.7-14.9)
[2022-07-31 13:05] VITALS: BP 104/57; PULSE 80; O2SAT 100
[2022-07-31 15:28] VITALS: BP 101/63; O2SAT 96
== END 2022-07-31 15:55 | disposition home or self-care (01) ==
PROVIDERS: Emergency Provider Emergency Medicine; PCP Family Medicine Geriatric Medicine; Visit Provider Emergency Medicine
DX: N93.9 Abnormal uterine and vaginal bleeding, unspecified (principal); E11.9 Type 2 diabetes mellitus without complications; R79.1 Abnormal coagulation profile; F17.210 Nicotine dependence, cigarettes, uncomplicated; K21.9 Gastro-esophageal reflux disease without esophagitis; F32.A Depression, unspecified; F41.9 Anxiety disorder, unspecified; Z86.718 Personal history of other venous thrombosis and embolism; Z79.82 Long term (current) use of aspirin; Z79.899 Other long term (current) drug therapy; Z79.01 Long term (current) use of anticoagulants; Z79.84 Long term (current) use of oral hypoglycemic drugs
CPT/HCPCS: 80048; 85025; 85610; 99285

== ENCOUNTER → 2022-08-22 | Outpatient (CLI) | payer BC, SELFPAY ==
[2022-08-22 16:58] LABS: Absolute Lymphocyte Count 2.22 X10^3/uL (0.83-4.51); Absolute Neutrophil Count 3.5 X10^3/uL (2.0-7.7); Basophil# 0.08 X10^3/uL; Basophil% 1.2 % (0-1); Eosinophil# 0.33 X10^3/uL; Hemoglobin 8.8 g/dL (12.0-15.0); Lymphocyte # 2.22 X10^3/ul (0.83-4.51); Lymphocyte % 33.7 % (19-41); Mean Corp Hgb Conc 31.4 g/dL (32-36); Mean Corpuscular Hgb 28.5 pg (27.0-32.0); Mean Corpuscular Volume 90.6 fL (81-99); Mean Platelet Vol. 9.4 fl (6.2-12.0); Monocyte# 0.43 X10^3/uL; Monocyte% 6.5 % (0-10); NRBC Flagged by Analyzer 0 % (0-5); Neutrophil # 3.52 X10^3/uL (2.7-7.7); Neutrophil % 53.4 % (47-70); Platelet Count 490 K/mm3 (150-450); RBC Distribution Width CV 14.3 % (11.6-14.6); RBC Distribution Width SD 46.6 fl (35.1-43.9); Red Blood Count 3.09 M/mm3 (4.2-5.4); White Blood Count 6.6 K/mm3 (4.4-11.0)
[2022-08-22 17:13] LABS: Vitamin D,25 Hydroxy 15.8 ng/mL
[2022-08-22 17:31] LABS: ALB/GLOB Ratio 1.2 RATIO (0.9-2.4); AST(SGOT) 13 U/L (15-37); Alanine Aminotransfer ALT/SGPT 15 U/L (13-56); Albumin, Serum 3.4 g/dL (3.2-5.0); Alkaline Phosphatase 65 U/L (45-117); Anion Gap 6 (5-15); BUN 13 mg/dL (7-18); BUN/Creat Ratio 18.8 RATIO (10-20); Calcium,Total 9.1 mg/dL (8.5-10.1); Chloride 108 mmol/L (98-107); Creatinine, Serum 0.69 mg/dL (0.55-1.02); EST Glomerular Filtration Rate 95 mL/min (>60); Est Glom Filt Rate - Afr Amer 115 mL/min (>60); Globulin 2.9 g/dL (2.2-4.2); Glucose 160 mg/dL (74-106); Potassium 4.2 mmol/L (3.5-5.1); Protein, Total 6.3 g/dL (6.4-8.2); Sodium Level 139 mmol/L (136-145); Thyroid Stim Hormone (TSH) 1.94 uIU/mL (0.358-3.74)
== END | disposition home or self-care (01) ==
LOC: POLAB3 15:00
PROVIDERS: PCP Family Medicine Geriatric Medicine; Visit Provider Family Medicine Geriatric Medicine
DX: E55.9 Vitamin D deficiency, unspecified (principal); E11.65 Type 2 diabetes mellitus with hyperglycemia; I10 Essential (primary) hypertension
CPT/HCPCS: 36415; 80053; 82306; 84443; 85025

== ENCOUNTER → 2022-08-23 | Outpatient (CLI) | payer BC, SELFPAY ==
[2022-08-23 16:15] LABS: Amphetamine Urine VISTA NEGATIVE (<1000 ng/mL); Barbiturate Urine VISTA NEGATIVE (< 200 ng/mL); Benzodiazepine Urine VISTA NEGATIVE (< 200 ng/mL); Cocaine Urine VISTA NEGATIVE (< 300 ng/mL); Ecstacy Urine VISTA NEGATIVE (< 500 ng/mL); Methadone Urine VISTA NEGATIVE (< 300 ng/mL); PCP Urine VISTA NEGATIVE (< 25 ng/mL); THC Urine VISTA NEGATIVE (< 50 ng/mL); Vista UDS pH Range 7
== END | disposition home or self-care (01) ==
LOC: LAB 15:33
PROVIDERS: PCP Family Medicine Geriatric Medicine; Referring Provider Internal Medicine Pulmonary Disease; Visit Provider Internal Medicine Pulmonary Disease
DX: Z79.899 Other long term (current) drug therapy (principal)
CPT/HCPCS: 80307

== ENCOUNTER → 2022-08-27 | Outpatient (CLI) | payer BC, SELFPAY ==
[2022-08-27 11:09] LABS: Absolute Lymphocyte Count 3.47 X10^3/uL (0.83-4.51); Absolute Neutrophil Count 6.4 X10^3/uL (2.0-7.7); Basophil# 0.14 X10^3/uL; Basophil% 1.3 % (0-1); Eosinophil# 0.33 X10^3/uL; Hematocrit 30.7 % (37-47); Hemoglobin 9.6 g/dL (12.0-15.0); Lymphocyte # 3.47 X10^3/ul (0.83-4.51); Lymphocyte % 31.7 % (19-41); Mean Corp Hgb Conc 31.3 g/dL (32-36); Mean Corpuscular Hgb 28.2 pg (27.0-32.0); Mean Corpuscular Volume 90.3 fL (81-99); Mean Platelet Vol. 9.3 fl (6.2-12.0); Monocyte# 0.55 X10^3/uL; NRBC Flagged by Analyzer 0 % (0-5); Neutrophil # 6.44 X10^3/uL (2.7-7.7); Neutrophil % 58.8 % (47-70); Platelet Count 503 K/mm3 (150-450); RBC Distribution Width CV 14.3 % (11.6-14.6); RBC Distribution Width SD 46.9 fl (35.1-43.9)
[2022-08-27 11:43] LABS: International Normalized Ratio 1.3; Prothrombin Time (Protime)PT. 15.6 SECONDS (11.7-14.9)
== END | disposition home or self-care (01) ==
LOC: LAB 10:36
PROVIDERS: PCP Family Medicine Geriatric Medicine; Referring Provider Family Medicine Geriatric Medicine; Visit Provider Family Medicine Geriatric Medicine
DX: D50.9 Iron deficiency anemia, unspecified (principal); J44.9 Chronic obstructive pulmonary disease, unspecified
CPT/HCPCS: 36415; 85025; 85610

== ENCOUNTER → 2022-09-23 | Outpatient (CLI) | payer BC, SELFPAY ==
[2022-09-23 12:59] LABS: Absolute Lymphocyte Count 3.92 X10^3/uL (0.83-4.51); Absolute Neutrophil Count 4.8 X10^3/uL (2.0-7.7); Basophil# 0.11 X10^3/uL; Basophil% 1.1 % (0-1); Eosinophil# 0.27 X10^3/uL; Eosinophils% 2.7 % (0-5); Hematocrit 33.2 % (37-47); Hemoglobin 10.1 g/dL (12.0-15.0); Lymphocyte # 3.92 X10^3/ul (0.83-4.51); Lymphocyte % 39.3 % (19-41); Mean Corp Hgb Conc 30.4 g/dL (32-36); Mean Corpuscular Hgb 26.2 pg (27.0-32.0); Mean Platelet Vol. 9.4 fl (6.2-12.0); Monocyte# 0.81 X10^3/uL; Monocyte% 8.1 % (0-10); NRBC Flagged by Analyzer 0 % (0-5); Neutrophil # 4.83 X10^3/uL (2.7-7.7); Neutrophil % 48.5 % (47-70); Platelet Count 538 K/mm3 (150-450); RBC Distribution Width CV 15.2 % (11.6-14.6); RBC Distribution Width SD 47.7 fl (35.1-43.9); Red Blood Count 3.86 M/mm3 (4.2-5.4)
[2022-09-23 13:21] LABS: AST(SGOT) 13 U/L (15-37); Alanine Aminotransfer ALT/SGPT 21 U/L (13-56); Albumin, Serum 3.5 g/dL (3.2-5.0); Alkaline Phosphatase 87 U/L (45-117); Anion Gap 3 (5-15); BUN 15 mg/dL (7-18); BUN/Creat Ratio 21.1 RATIO (10-20); Calcium,Total 9.2 mg/dL (8.5-10.1); Chloride 108 mmol/L (98-107); Creatinine, Serum 0.71 mg/dL (0.55-1.02); EST Glomerular Filtration Rate 92 mL/min (>60); Est Glom Filt Rate - Afr Amer 111 mL/min (>60); Ferritin 4 ng/mL (8-252); Globulin 3.5 g/dL (2.2-4.2); Glucose 156 mg/dL (74-106); Iron 20 ug/dL (50-170); Iron Binding Capacity,Total 439 ug/dL (250-450); LDH 167 U/L (84-246); PERCENT IRON SATURATION 4.6 % (15.0-55.0); Potassium 3.9 mmol/L (3.5-5.1); Sodium Level 137 mmol/L (136-145)
== END | disposition home or self-care (01) ==
LOC: POLAB3 11:49
PROVIDERS: Internal Medicine Medical Oncology; PCP Family Medicine Geriatric Medicine; Visit Provider Family Medicine Geriatric Medicine
DX: D50.9 Iron deficiency anemia, unspecified (principal)
CPT/HCPCS: 36415; 80053; 82728; 83540; 83550; 83615; 85025

== ENCOUNTER → 2022-11-22 | Outpatient (CLI) | payer BC, SELFPAY ==
[2022-11-22 13:42] LABS: Absolute Lymphocyte Count 2.99 X10^3/uL (0.83-4.51); Basophil# 0.08 X10^3/uL; Basophil% 0.9 % (0-1); Eosinophils% 2.2 % (0-5); Hematocrit 33.6 % (37-47); Hemoglobin 10.6 g/dL (12.0-15.0); Lymphocyte # 2.99 X10^3/ul (0.83-4.51); Lymphocyte % 33.6 % (19-41); Mean Corp Hgb Conc 31.5 g/dL (32-36); Mean Corpuscular Volume 79.2 fL (81-99); Mean Platelet Vol. 9.3 fl (6.2-12.0); Monocyte# 0.58 X10^3/uL; Monocyte% 6.5 % (0-10); NRBC Flagged by Analyzer 0 % (0-5); Neutrophil # 5.02 X10^3/uL (2.7-7.7); Neutrophil % 56.5 % (47-70); Platelet Count 463 K/mm3 (150-450); RBC Distribution Width CV 17.2 % (11.6-14.6); Red Blood Count 4.24 M/mm3 (4.2-5.4); White Blood Count 8.9 K/mm3 (4.4-11.0)
[2022-11-22 13:49] LABS: ALB/GLOB Ratio 1.2 RATIO (0.9-2.4); AST(SGOT) 16 U/L (15-37); Alanine Aminotransfer ALT/SGPT 17 U/L (13-56); Albumin, Serum 3.5 g/dL (3.2-5.0); Alkaline Phosphatase 85 U/L (45-117); Anion Gap 6 (5-15); BUN 12 mg/dL (7-18); BUN/Creat Ratio 19.6 RATIO (10-20); Chloride 107 mmol/L (98-107); Creatinine, Serum 0.61 mg/dL (0.55-1.02); EST Glomerular Filtration Rate 109 mL/min (>60); Est Glom Filt Rate - Afr Amer 132 mL/min (>60); Glucose 178 mg/dL (74-106); Protein, Total 6.5 g/dL (6.4-8.2); Sodium Level 141 mmol/L (136-145); Thyroid Stim Hormone (TSH) 1.88 uIU/mL (0.358-3.74)
== END | disposition home or self-care (01) ==
PROVIDERS: PCP Family Medicine Geriatric Medicine; Referring Provider Family Medicine Geriatric Medicine; Visit Provider Family Medicine Geriatric Medicine
DX: E11.65 Type 2 diabetes mellitus with hyperglycemia (principal); I10 Essential (primary) hypertension
CPT/HCPCS: 36415; 80053; 84443; 85025

== ENCOUNTER → 2022-12-04 | Outpatient (CLI) | payer BC, SELFPAY ==
--- NOTE | 2022-12-04 13:42 | BI_ITS ---
MAMMOGRAPHY - BILATERAL SCREENING REASON FOR EXAM: Female, 52 years old. Routine annual screening examination. PERTINENT HISTORY: Aunt with breast cancer. Grandfather with breast cancer. TECHNIQUE: Digital bilateral breast carla (3D mammographic acquisition) in the CC and MLO projections. 2-D mediolateral oblique (MLO) and craniocaudad (CC) views of both breasts were obtained. CAD: Full Field Digital Mammography with Computer Added Detection was performed. COMPARISON: Comparison is made with prior examination dated November 20, 2020 and March 29, 2015. FINDINGS: Breast Composition: There are scattered areas of fibroglandular density. There are no dominant masses or suspicious calcifications. No other significant abnormalities are identified. There has been no significant change since the prior study. BI/SCRN MAMM (CAD)W/CARLA BILAT IMPRESSION: Stable bilateral screening mammogram. Yearly follow-up mammogram recommended. (A) ASSESSMENT CATEGORY: BIRADS Category 1: Negative. A letter regarding these results will be sent to the patient by the facility within 30 days. Approximately 10% of breast cancers are not detected by mammography. A normal mammogram should not delay biopsy of a clinically suspicious abnormality. [id number] Electronically Signed: Bandar Garcia MD at 14:39 EDT ,
== END | disposition home or self-care (01) ==
LOC: OPBI 13:35
PROVIDERS: PCP Family Medicine Geriatric Medicine; Referring Provider Family Medicine Geriatric Medicine; Visit Provider Family Medicine Geriatric Medicine
DX: Z12.31 Encounter for screening mammogram for malignant neoplasm of breast (principal)
CPT/HCPCS: 77063; 77067

== ENCOUNTER → 2023-01-24 | Outpatient (CLI) | payer BC, SELFPAY ==
[2023-01-24 12:07] LABS: Absolute Lymphocyte Count 3.51 X10^3/uL (0.83-4.51); Absolute Neutrophil Count 4.8 X10^3/uL (2.0-7.7); Basophil# 0.11 X10^3/uL; Basophil% 1.1 % (0-1); Differential Indicated SCAN CRITERIA MET; Eosinophil# 0.35 X10^3/uL; Eosinophils% 3.6 % (0-5); Hematocrit 43.6 % (37-47); Lymphocyte # 3.51 X10^3/ul (0.83-4.51); Lymphocyte % 35.9 % (19-41); Mean Corp Hgb Conc 32.1 g/dL (32-36); Mean Corpuscular Hgb 28.1 pg (27.0-32.0); Mean Corpuscular Volume 87.4 fL (81-99); Mean Platelet Vol. 9.9 fl (6.2-12.0); Monocyte# 0.95 X10^3/uL; Monocyte% 9.7 % (0-10); NRBC Flagged by Analyzer 0 % (0-5); Neutrophil # 4.82 X10^3/uL (2.7-7.7); Neutrophil % 49.4 % (47-70); POSITIVE MORPHOLOGY YES; Platelet Count 386 K/mm3 (150-450); RBC Distribution Width CV 22.3 % (11.6-14.6); RBC Distribution Width SD 68.4 fl (35.1-43.9); RET-HE 33.1 pg (30-35); Red Blood Count 4.99 M/mm3 (4.2-5.4); Reticulocyte Count 0.97 % (0.5-1.5); White Blood Count 9.8 K/mm3 (4.4-11.0)
[2023-01-24 12:26] LABS: Vitamin B12 1566 pg/mL (211-911)
[2023-01-24 12:37] LABS: AST(SGOT) 20 U/L (15-37); Alanine Aminotransfer ALT/SGPT 27 U/L (13-56); Albumin, Serum 3.5 g/dL (3.2-5.0); Alkaline Phosphatase 103 U/L (45-117); Anion Gap 6 (5-15); BUN 20 mg/dL (7-18); BUN/Creat Ratio 31.6 RATIO (10-20); Calcium,Total 9.5 mg/dL (8.5-10.1); Chloride 108 mmol/L (98-107); Creatinine, Serum 0.63 mg/dL (0.55-1.02); EST Glomerular Filtration Rate 105 mL/min (>60); Est Glom Filt Rate - Afr Amer 127 mL/min (>60); Ferritin 89 ng/mL (8-252); Globulin 3.5 g/dL (2.2-4.2); Glucose 176 mg/dL (74-106); Iron 65 ug/dL (50-170); Iron Binding Capacity,Total 281 ug/dL (250-450); LDH 171 U/L (84-246); PERCENT IRON SATURATION 23.1 % (15.0-55.0); Potassium 4.2 mmol/L (3.5-5.1); Sodium Level 140 mmol/L (136-145)
[2023-01-24 19:59] LABS: Xtra Tube EP Lab EXTRA TUBE
== END | disposition home or self-care (01) ==
LOC: PAVLAB 11:48
PROVIDERS: PCP Family Medicine Geriatric Medicine; Referring Provider Internal Medicine Medical Oncology; Visit Provider Internal Medicine Medical Oncology
DX: E61.1 Iron deficiency (principal)
CPT/HCPCS: 36415; 80053; 82607; 82728; 82746; 83540; 83550; 83615; 85025; 85045

== ENCOUNTER 2023-02-08 19:14 | Emergency (ER) | payer BC, SELFPAY ==
[2023-02-08 19:14] VITALS: BP 152/80; PULSE 80; RESP 16; TEMP 36.6; O2SAT 98; BMI 30.7
--- NOTE | 2023-02-08 19:56 | EDS_ITS ---
HPI <ANA Mishra - Last Filed: 02/08/23 20:35> History of Present Illness Chief Complaint: Upper Extremity Injury Narrative Narrative: Is a 52-year-old female with history of DVTs who is on Coumadin, small diabetes who takes oral medication presents to the emergency department with multiple weeks of left elbow pain. Patient noticed that there was some redness, swelling over the last week and has been more painful. She does have an abrasion to the bottom of her elbow. Patient denies any fever or chills. Patient is having worsening swelling pain having difficulty flexing and extending. 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 Bruising Chronic cough Contraceptive management Depression Diabetes mellitus DVT (deep venous thrombosis) Easy bruising Excessive bleeding Gastric reflux History of echocardiogram History of kidney stones Injury of head and neck Leg cramps Leukocytosis Menorrhagia with irregular cycle Migraine headache Sleep apnea Smoker Wears dentures Wears glasses Home Medications metformin 500 mg tablet 1,000 mg PO BID diabetes 02/28/14 [History Last Taken 11/26/19 16:00] atorvastatin 40 mg tablet 80 mg PO DAILY cholesterol 11/26/19 [History Last Taken 11/25/19] clopidogrel 75 mg tablet 75 mg PO DAILY 12/14/19 [History Last Taken 07/05/22] warfarin 5 mg tablet 7 mg PO DAILY DVT 12/14/19 [History Last Taken 07/05/22] biotin 5,000 mcg disintegrating tablet 5,000 mcg PO DAILY 04/03/20 [History Last Taken Unknown] pantoprazole 40 mg tablet,delayed release 40 mg PO DAILY 04/03/20 [History Last Taken 07/09/22] doxepin 10 mg capsule 10 mg PO PRN PRN Sleep 12/14/20 [History Last Taken Unknown] escitalopram oxalate 20 mg tablet (Lexapro) 20 mg PO DAILY 12/14/20 [History Last Taken Unknown] bupropion HCl 150 mg tablet,12 hr sustained-release 150 mg PO BID 07/05/22 [History Last Taken Unknown] valsartan 160 mg tablet 160 mg PO DAILY 07/05/22 [History Last Taken 07/09/22] naproxen 500 mg tablet 500 mg PO PRN PRN Pain #30 tabs 07/23/22 [Rx Last Taken Unknown] polysaccharide iron complex 150 mg iron capsule See Rx Instructions .Route .COMPLEX #180 caps 09/02/22 [Rx Last Taken Unknown] sennosides 8.6 mg-docusate sodium 50 mg tablet (Senexon-S) 1 tab PO BID PRN Constipation 11/25/22 [History Last Taken Unknown] clindamycin HCl 300 mg capsule 300 mg PO Q8H 10 days #30 caps 02/08/23 [Rx Last Taken Unknown] oxycodone-acetaminophen 5 mg-325 mg tablet (Percocet) 1 tab PO Q8H PRN pain 3 days #10 tabs 02/08/23 [Rx Last Taken Unknown] Allergy/AdvReac Type Severity Reaction Status Date / Time latex Allergy Mild rash Verified 02/08/23 19:16 Penicillins [PCN] Allergy Hives Verified 02/08/23 19:16 Family History Brother Diabetes Father Diabetes Mother Diabetes Uncle Diabetes Skin cancer Colon cancer Uncle Diabetes Aunt Breast cancer Surgical History H/O lithotripsy H/O tubal ligation History of embolectomy History of esophagogastroduodenoscopy (EGD) Hx of cholecystectomy Hx of partial nephrectomy Status post endometrial ablation Social History household members: family current occupational status: employed current occupation: [employer] history of recent travel: No sexually active: No Smoking Status: Current every day smoker tobacco type: cigarettes alcohol intake: never substance use type: does not use what type of physical activity do you participate in: other seatbelt use: always do you feel safe at home: Yes additional social history: single ROS <ANA Mishra - Last Filed: 02/08/23 20:35> ROS ED ROS Narrative Constitutional: Negative for fever, chills, weight loss, weakness Eyes: Negative for vision loss, vision change, double vision ENT: Negative for any sore throat, ear pain, congestion Cardiovascular: Negative for any chest pain, tightness, palpitations Respiratory: Negative for any cough, sputum production, hemoptysis, dyspnea, dyspnea on exertion, orthopnea Gastrointestinal: Negative for any abdominal pain, nausea, vomiting, diarrhea, constipation, blood in stool, blood in vomit : Negative for any urinary frequency, dysuria, retention, blood in urine Muscle skeletal: Negative for any muscle joint pain, stiffness, myalgias, arthralgias, neck pain, back pain. Positive left elbow pain, left elbow redness Neurological: Negative for any headache, syncope, numbness or tingling, dizziness Skin: Negative for any rashes, lumps, itching, abrasions, lacerations Psychiatric: Negative for any depression, anxiety, stress, suicidal ideation, homicidal ideation Hematologic: Negative for any easy bruising, excessive bruising, easy bleeding Allergies: Negative for any eczema, hives, rash EXAM <ANA Mishra - Last Filed: 02/08/23 20:35> Physical Exam Narrative Exam Narrative: Vital signs reviewed. HEET: Head normocephalic atraumatic, TMs clear bilaterally. Posterior pharynx is clear, moist mucous membranes. Nares clear bilaterally. Neck: Supple with no lymphadenopathy or tenderness. No signs of meningismus, negative jolt sign. Cardiac: Regular rate and rhythm no murmurs gallops or rubs, equal peripheral pulses bilaterally. Respiratory: Lungs clear to auscultation bilaterally. No chest tenderness. Abdomen: Soft, nontender, nondistended. No abdominal bruit or pulsatile masses. No hepatosplenomegaly Extremities: Patient does have some erythema, edema to the left elbow along olecranon process. There is a scabbed abrasion. Patient is able to flex and extend however full extension and full flexion does cause discomfort. Patient has no pain with supination or pronation. +2 radial pulse. Patient has full range of motion of the hand, no pain or significant swelling. No signs of trauma. Neuro: Cranial nerves II through XII intact, no focal neurological deficits. Skin: Clean dry and intact with no rash, purpura, petechiae, vesicles or pustules. Backs/flank: No CVA tenderness, no midline spinal tenderness, no deformity. Psych: Normal mood and affect. No SI, HI or acute psychosis. Const Vital Signs: 02/08/23 19:14 Temperature 98 F Temperature Source Temporal Pulse Rate 80 Respiratory Rate 16 Blood Pressure 152/80 H Blood Pressure Mean 104 Pulse Ox 98 Oxygen Delivery Method Room Air [facility] <ANA Mishra - Last Filed: 02/08/23 20:35> [facility] Treatment and Re-Evaluation Narrative: All radiologic examinations were read, reviewed by the emergency department attending. From these reads, a plan of care will be put in place. Patient presents to the emergency department with left elbow pain, redness. There is concern for septic bursitis. The attending did reach out to the on- call orthopedic surgeon. The attending will anesthetize the area, and drain the joint. Patient received x-rays of the left elbow, these were unremarkable. Patient was given oral Percocet, oral clindamycin. Patient be given both of these for home. She will follow-up with orthopedics outpatient. Patient at this time meets no criteria for sepsis. Patient will continue to follow-up outpatient and instructed to return for any worsening symptoms. All questions answered, patient stable for discharge Procedures <Dr. Todd Sage MD - Last Filed: 02/08/23 20:37> Other Procedures Procedure(s): Incision and drainage of the olecranon bursitis Verbal consent obtained. I discussed with Dr. Loyd to this. I used 1% lidocaine and anesthetized the area around her abrasion, I used an 18-gauge needle and withdrew all the contents of the bursa. Most of them were bloody. Patient tolerated procedure well. Discharge Plan Triage Chief Complaint: Upper Extremity Injury ED Midlevel Provider: Todd Nielsen ED Provider: Todd Sage Dx/Rx/DC Orders Clinical Impression: Bursitis due to trauma, Elbow abrasion Instructions: ED Abrasion, ED Bursitis Prescriptions: New oxycodone-acetaminophen [Percocet] 5-325 mg tablet 1 tab PO Q8H PRN (Reason: pain) 3 Days Qty: 10 0RF clindamycin HCl 300 mg capsule 300 mg PO Q8H 10 Days Qty: 30 0RF No Action naproxen 500 mg tablet 500 mg PO PRN PRN (Reason: Pain) Qty: 30 0RF metformin 500 MG tablet 1,000 mg PO BID Patient Comments: atorvastatin 40 MG tablet 80 mg PO DAILY clopidogrel 75 MG tablet 75 mg PO DAILY warfarin 5 MG tablet 7 mg PO DAILY pantoprazole 40 MG tablet 40 mg PO DAILY biotin 5,000 MCG tablet,disintegrating 5,000 mcg PO DAILY sennosides-docusate sodium [Senexon-S] 8.6-50 mg tablet 1 tab PO BID PRN (Reason: Constipation) doxepin 10 mg capsule 10 mg PO PRN PRN (Reason: Sleep) escitalopram oxalate [Lexapro] 20 mg tablet 20 mg PO DAILY Patient Comments: TAKE 1 TABLET BY MOUTH EVERY DAY bupropion HCl 150 mg tablet sustained-release 12 hr 150 mg PO BID Patient Comments: TAKE 1 TABLET ORALLY TWICE PER DAY FOR 90 DAYS valsartan 160 mg tablet 160 mg PO DAILY Patient Comments: TAKE 1 TABLET BY MOUTH EVERY DAY polysaccharide iron complex 150 mg iron capsule See Rx Instructions .ROUTE .COMPLEX Qty: 180 2RF Dose Instruction: TAKE 1 CAPSULE BY MOUTH TWICE A DAY Rx Instructions: TAKE 1 CAPSULE BY MOUTH TWICE A DAY Primary Care Provider: Shashank Tai Chi Referrals: Stefan Loyd MD [Med Staff - Active Staff] - Shashank Tai Chi, MD [Primary Care Provider] - Activity Restrictions/Additional Instructions: You need to start your antibiotics tomorrow 3 times a day. You may take the pain medicine as needed. Please follow-up with orthopedics early this week. Return for worsening redness pain fever chills Disposition Disposition: Home, Self Care
--- NOTE | 2023-02-08 20:08 | RAD_ITS ---
STUDY: X-RAY - LEFT ELBOW REASON FOR EXAM: Female, 52 years old. swelling TECHNIQUE: 3 view(s) of the elbow. COMPARISON: None. FINDINGS: Normal visualized humerus, radius and ulna. Normal radiocapitellar and ulnotrochlear articulations. Posterior elbow soft tissue swelling. RAD/Elbow min 3 Views IMPRESSION: No demonstrable fracture or malalignment. Electronically Signed: Dimitri Raines MD ([place]) at 20:37 EDT ,
[2023-02-08] MEDS: Oxycodone/Apap 5/325 Tablet PO (20:17)
[2023-02-08] MEDS: Lidocaine 1% (20 ml mdv) 20 ML Vial INFILT (20:19)
[2023-02-08] MEDS: Clindamycin HCl 150 MG Capsule 300 MG PO (20:42)
--- NOTE | 2023-02-10 13:06 | CON.PCM.OR_ITS ---
HPI Consult Data Date of Consult: 02/10/23 HPI Narrative HPI Narrative: ROGERIO KIRKLAND, is a 52 F who presents per ED provider phone call with redness posterior elbow, small amount. no drainage or concern with septic joint, just infected bursitis. 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 Bruising Chronic cough Contraceptive management Depression Diabetes mellitus DVT (deep venous thrombosis) Easy bruising Excessive bleeding Gastric reflux History of echocardiogram History of kidney stones Injury of head and neck Leg cramps Leukocytosis Menorrhagia with irregular cycle Migraine headache Sleep apnea Smoker Wears dentures Wears glasses Home Medications metformin 500 mg tablet 1,000 mg PO BID diabetes 02/28/14 [History Last Taken 11/26/19 16:00] atorvastatin 40 mg tablet 80 mg PO DAILY cholesterol 11/26/19 [History Last Taken 11/25/19] clopidogrel 75 mg tablet 75 mg PO DAILY 12/14/19 [History Last Taken 07/05/22] warfarin 5 mg tablet 7 mg PO DAILY DVT 12/14/19 [History Last Taken 07/05/22] biotin 5,000 mcg disintegrating tablet 5,000 mcg PO DAILY 04/03/20 [History Last Taken Unknown] pantoprazole 40 mg tablet,delayed release 40 mg PO DAILY 04/03/20 [History Last Taken 07/09/22] doxepin 10 mg capsule 10 mg PO PRN PRN Sleep 12/14/20 [History Last Taken Unknown] escitalopram oxalate 20 mg tablet (Lexapro) 20 mg PO DAILY 12/14/20 [History Last Taken Unknown] bupropion HCl 150 mg tablet,12 hr sustained-release 150 mg PO BID 07/05/22 [History Last Taken Unknown] valsartan 160 mg tablet 160 mg PO DAILY 07/05/22 [History Last Taken 07/09/22] naproxen 500 mg tablet 500 mg PO PRN PRN Pain #30 tabs 07/23/22 [Rx Last Taken Unknown] polysaccharide iron complex 150 mg iron capsule See Rx Instructions .Route .COMPLEX #180 caps 09/02/22 [Rx Last Taken Unknown] sennosides 8.6 mg-docusate sodium 50 mg tablet (Senexon-S) 1 tab PO BID PRN Constipation 11/25/22 [History Last Taken Unknown] clindamycin HCl 300 mg capsule 300 mg PO Q8H 10 days #30 caps 02/08/23 [Rx Last Taken Unknown] oxycodone-acetaminophen 5 mg-325 mg tablet (Percocet) 1 tab PO Q8H PRN pain 3 days #10 tabs 02/08/23 [Rx Last Taken Unknown] Allergy/AdvReac Type Severity Reaction Status Date / Time latex Allergy Mild rash Verified 02/08/23 19:16 Penicillins [PCN] Allergy Hives Verified 02/08/23 19:16 Family History Brother Diabetes Father Diabetes Mother Diabetes Uncle Diabetes Skin cancer Colon cancer Uncle Diabetes Aunt Breast cancer Surgical History H/O lithotripsy H/O tubal ligation History of embolectomy History of esophagogastroduodenoscopy (EGD) Hx of cholecystectomy Hx of partial nephrectomy Status post endometrial ablation Social History household members: family current occupational status: employed current occupation: [employer] history of recent travel: No sexually active: No Smoking Status: Current every day smoker tobacco type: cigarettes alcohol intake: never substance use type: does not use what type of physical activity do you participate in: other seatbelt use: always do you feel safe at home: Yes additional social history: single Vital Signs Vital Signs Vital Signs: Weight Weight: 196 lb 7 oz Body Mass Index (BMI) 30.7 Lab / Micro Data Micro: Microbiology 02/08/23 20:45 Wound Abcess - Elbow Gram Stain - Final 02/08/23 20:45 Wound Abcess - Elbow Wound Culture - Preliminary Staphylococcus aureus Assessment & Plan Assessment/Plan (1) Bursitis due to trauma: PLAN: 52 F possible infected bursitis, otherwise uncomplicated. Agreed with ED provider recommendation, ok to attempt aspiration for culture, outpatient antibiotics and return if any red flag symptoms or worsening. FU early this week in clinic.
== END 2023-02-08 20:50 | disposition home or self-care (01) ==
PROVIDERS: Emergency Provider Emergency Medicine; PCP Family Medicine Geriatric Medicine; Visit Provider Emergency Medicine
DX: M70.32 Other bursitis of elbow, left elbow (principal); E11.9 Type 2 diabetes mellitus without complications; S50.312A Abrasion of left elbow, initial encounter; F17.210 Nicotine dependence, cigarettes, uncomplicated; Z79.01 Long term (current) use of anticoagulants; Z79.899 Other long term (current) drug therapy; Z79.84 Long term (current) use of oral hypoglycemic drugs; Z86.718 Personal history of other venous thrombosis and embolism; X58.XXXA Exposure to other specified factors, initial encounter
CPT/HCPCS: 73080; 87070; 87077; 87186; 87205; 99283

== ENCOUNTER → 2023-02-19 | Outpatient (CLI) | payer BC, SELFPAY ==
[2023-02-19 13:55] LABS: Absolute Lymphocyte Count 3.98 X10^3/uL (0.83-4.51); Absolute Neutrophil Count 5.8 X10^3/uL (2.0-7.7); Basophil# 0.13 X10^3/uL; Basophil% 1.2 % (0-1); Eosinophil# 0.27 X10^3/uL; Eosinophils% 2.4 % (0-5); Hematocrit 43.1 % (37-47); Hemoglobin 14.3 g/dL (12.0-15.0); Lymphocyte # 3.98 X10^3/ul (0.83-4.51); Lymphocyte % 35.4 % (19-41); Mean Corp Hgb Conc 33.2 g/dL (32-36); Mean Corpuscular Hgb 29.2 pg (27.0-32.0); Mean Platelet Vol. 9.8 fl (6.2-12.0); Monocyte# 0.91 X10^3/uL; Monocyte% 8.1 % (0-10); NRBC Flagged by Analyzer 0 % (0-5); Neutrophil # 5.84 X10^3/uL (2.7-7.7); Platelet Count 434 K/mm3 (150-450); RBC Distribution Width SD 60.6 fl (35.1-43.9); White Blood Count 11.2 K/mm3 (4.4-11.0)
[2023-02-19 14:20] LABS: ALB/GLOB Ratio 1.1 RATIO (0.9-2.4); AST(SGOT) 12 U/L (15-37); Alanine Aminotransfer ALT/SGPT 19 U/L (13-56); Albumin, Serum 3.5 g/dL (3.2-5.0); Alkaline Phosphatase 101 U/L (45-117); Anion Gap 4 (5-15); BUN 18 mg/dL (7-18); BUN/Creat Ratio 25.9 RATIO (10-20); Calcium,Total 9.2 mg/dL (8.5-10.1); Chloride 104 mmol/L (98-107); Creatinine, Serum 0.69 mg/dL (0.55-1.02); EST Glomerular Filtration Rate 94 mL/min (>60); Est Glom Filt Rate - Afr Amer 114 mL/min (>60); Globulin 3.1 g/dL (2.2-4.2); Glucose 203 mg/dL (74-106); Potassium 4.2 mmol/L (3.5-5.1); Protein, Total 6.6 g/dL (6.4-8.2); Sodium Level 135 mmol/L (136-145); Thyroid Stim Hormone (TSH) 1.39 uIU/mL (0.358-3.74)
== END | disposition home or self-care (01) ==
LOC: POLAB3 13:05
PROVIDERS: PCP Family Medicine Geriatric Medicine; Visit Provider Family Medicine Geriatric Medicine
DX: E11.65 Type 2 diabetes mellitus with hyperglycemia (principal); I10 Essential (primary) hypertension
CPT/HCPCS: 36415; 80053; 84443; 85025

== ENCOUNTER → 2023-04-01 | Outpatient (CLI) | payer BC, SELFPAY ==
[2023-04-01 16:54] LABS: International Normalized Ratio 1.3
== END | disposition home or self-care (01) ==
LOC: POLAB3 15:07
PROVIDERS: PCP Family Medicine Geriatric Medicine; Visit Provider Family Medicine Geriatric Medicine
DX: I74.3 Embolism and thrombosis of arteries of the lower extremities (principal)
CPT/HCPCS: 36415; 85610

== ENCOUNTER → 2023-04-25 | Outpatient (CLI) | payer BC, SELFPAY ==
[2023-04-25 17:12] LABS: International Normalized Ratio 2.1; Prothrombin Time (Protime)PT. 23.8 SECONDS (11.7-14.9)
== END | disposition home or self-care (01) ==
LOC: LAB 16:00
PROVIDERS: PCP Family Medicine Geriatric Medicine; Visit Provider Family Medicine Geriatric Medicine
DX: I74.9 Embolism and thrombosis of unspecified artery (principal)
CPT/HCPCS: 36415; 85610

== ENCOUNTER → 2023-05-12 | Outpatient (CLI) | payer BC, SELFPAY | END | disposition home or self-care (01) | PROVIDERS: PCP Family Medicine Geriatric Medicine; Referring Provider Family Medicine Geriatric Medicine; Visit Provider Family Medicine Geriatric Medicine | DX: R68.83 Chills (without fever) (principal) | CPT/HCPCS: 87635; 87804; 87807; C9803 ==

== ENCOUNTER 2023-05-15 00:31 | Observation (INO) | payer BC, SELFPAY ==
[2023-05-15] VITALS (11 sets, daily range): BP systolic 105–121; BP diastolic 48–72; PULSE 64–78; RESP 14–18; TEMP 36.4–36.7; O2SAT 93–98; BMI 29.4; BMI 29.2
--- NOTE | 2023-05-15 00:50 | EKG12_ITS ---
Test Reason : Blood Pressure : / mmHG Vent. Rate : 068 BPM Atrial Rate : 068 BPM P-R Int : 166 ms QRS Dur : 080 ms QT Int : 410 ms P-R-T Axes : 046 -05 043 degrees QTc Int : 435 ms Normal sinus rhythm Normal ECG Confirmed by KLARISSA CRUZ, GAMALIEL ([id number]), videotape editor TIFFANY ROMEO ([id number]) on 05/19/2023 1:55:53 P M Referred By: Confirmed By:GENOVEVA CYR MD
--- NOTE | 2023-05-15 00:55 | EX.ED.DYSGE1 ---
HPI History of Present Illness Chief Complaint: General Illness Narrative Narrative: Patient is a 52-year-old female with history of long-term Coumadin therapy, GERD, diabetes mellitus, migraines, anxiety and depression presenting with generalized malaise. Patient states she started with sinus congestion about a week ago. She saw her PCP for shortly after the symptoms started and had a negative COVID, flu and RSV swab. She was placed on a course of prednisone. She states she is getting worse. She notes she is having intermittent hot and cold episodes and she feels clammy. During this episode she does feel dizzy. She has developed pretty severe diarrhea. States anytime she eats it goes right through her. States the diarrhea is particularly bad yesterday. This been going on for 2 to 3 days. She also notes that she has had increased urination frequency. She had an episode of urinary incontinence which woke her from sleep the other night. That is new for her. She has been drinking more fluids. She notes her legs feel like rubber. She states she aches all over. She is has what she describes as a sinus headache. She also notes that she has had a cough that been mild and nonproductive. She has been taking Aleve for her symptoms. She denies any chest pain but notes that she does get some sternal pain with coughing. She notes she had to leave work today because she was feeling so ill which is what triggered her to come to the emergency room. Seen blood in her stool. She denies any history of C. difficile. No other complaints at this time. 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 Bruising Chronic cough Contraceptive management Depression Diabetes mellitus DVT (deep venous thrombosis) Easy bruising Excessive bleeding Gastric reflux History of echocardiogram History of kidney stones Injury of head and neck Leg cramps Leukocytosis Menorrhagia with irregular cycle Migraine headache Sleep apnea Smoker Wears dentures Wears glasses Home Medications metformin 500 mg tablet 1,000 mg PO BID diabetes 02/28/14 [History Last Taken 11/26/19 16:00] atorvastatin 40 mg tablet 80 mg PO DAILY cholesterol 11/26/19 [History Last Taken 11/25/19] clopidogrel 75 mg tablet 75 mg PO DAILY 12/14/19 [History Last Taken 07/05/22] warfarin 5 mg tablet 7 mg PO DAILY DVT 12/14/19 [History Last Taken 07/05/22] biotin 5,000 mcg disintegrating tablet 10,000 mcg PO DAILY 04/03/20 [History Last Taken Unknown] pantoprazole 40 mg tablet,delayed release 40 mg PO DAILY 04/03/20 [History Last Taken 07/09/22] doxepin 10 mg capsule 10 mg PO PRN PRN Sleep 12/14/20 [History Last Taken Unknown] escitalopram oxalate 20 mg tablet (Lexapro) 20 mg PO DAILY 12/14/20 [History Last Taken Unknown] bupropion HCl 150 mg tablet,12 hr sustained-release 150 mg PO BID 07/05/22 [History Last Taken Unknown] valsartan 160 mg tablet 160 mg PO DAILY 07/05/22 [History Last Taken 07/09/22] sennosides 8.6 mg-docusate sodium 50 mg tablet (Senexon-S) 1 tab PO BID PRN Constipation 11/25/22 [History Last Taken Unknown] dapagliflozin propanediol 10 mg tablet (Farxiga) 10 mg PO DAILY 05/15/23 [History Last Taken Unknown] Allergy/AdvReac Type Severity Reaction Status Date / Time latex Allergy Mild rash Verified 03/04/23 13:52 Penicillins [PCN] Allergy Hives Verified 03/04/23 13:52 Family History Brother Diabetes Father Diabetes Mother Diabetes Uncle Diabetes Skin cancer Colon cancer Uncle Diabetes Aunt Breast cancer Surgical History H/O lithotripsy H/O tubal ligation History of embolectomy History of esophagogastroduodenoscopy (EGD) Hx of cholecystectomy Hx of partial nephrectomy Status post endometrial ablation Social History (Updated 05/15/23 @ 03:[address] Leola Bowman MD) household members: family current occupational status: employed current occupation: [employer] history of recent travel: No sexually active: No Smoking Status: Current every day smoker tobacco type: cigarettes Smoking packs per day: 0.5 Smoking cigarettes per day: 10.0 alcohol intake: never substance use type: does not use what type of physical activity do you participate in: other seatbelt use: always do you feel safe at home: Yes additional social history: single ROS ROS ED Constitutional Constitutional ED: Reports chills and sweats; Denies fever(s) Eyes Eyes: Denies change in vision ENT ENT ED: Reports other Details: nasal congestion ; Denies sore throat Cardiovascular Cardiovascular: Reports chest pain and other Details: with coughing Respiratory/Chest Respiratory/Chest: Reports cough; Denies dyspnea Gastrointestinal Gastrointestinal: Reports abdominal pain, diarrhea and nausea Genitourinary Genitourinary ED: Reports urinary frequency; Denies dysuria or hematuria Musculoskeletal Musculoskeletal: Reports myalgias; Denies arthralgias Integumentary Denies rash Neurologic Neurologic: Reports headache(s) and weakness; Denies paresthesias Hematologic/Lymphatic Hematologic/Lymphatic: Reports easy bleeding EXAM Physical Exam Const Vital Signs: 05/15/23 00:32 05/15/23 00:32 05/15/23 03:02 Temperature 97.6 F L 98.1 F Temperature Source Temporal Pulse Rate 78 64 Respiratory Rate 16 15 Respiratory Effort Normal Non-Labored Respiratory Pattern Normal Blood Pressure 121/72 H 111/60 Blood Pressure Mean 88 77 Pulse Ox 98 98 Oxygen Delivery Method Room Air 05/15/23 00:52 05/15/23 02:52 Temperature Temperature Source Pulse Rate 69 67 Respiratory Rate 14 16 Respiratory Effort Respiratory Pattern Blood Pressure Blood Pressure Mean Pulse Ox 98 98 Oxygen Delivery Method Room Air Room Air Positive well nourished and well developed Constitutional Narrative: Non-toxic but ill-appearing General Appearance ED: well developed and NAD HEENT Reports moist mucous membranes Eyes PERRL and EOMs intact bilaterally Neck supple Chest Wall inspection of chest normal and palpation of chest normal Resp normal respiratory effort Resp Narrative: Mild rhonchi noted at the right base Auscultation: Negative for rales, wheezes or diminished lung sounds Cardio regular rate, regular rhythm and no murmurs GI normal to inspection, nondistended, normoactive bowel sounds and non-tender Back/Spine no CVA tenderness Neuro oriented x3 Sensorium / Orientation: alert Motor Exam: general weakness Psych mental status grossly normal Skin no rashes or lesions noted and no wounds MDM MDM MDM Narrative Medical decision making narrative: Patient is evaluated for 1 week of flulike symptoms. She says that she is a pretty significant diarrhea over the past few days. Will check lab work including CBC, CMP, urinalysis as well as a chest x-ray and obtain EKG looking for COVID infection. Will repeat COVID and flu swab as she was negative a couple days ago but her symptoms have progressed. Patient is given IV fluids and Tylenol for symptoms in the ER. She has a significant leukocytosis of 23 with a left shift. This could be confounded by her recent steroids however. INR slightly subtherapeutic at 1.9. Patient does have hyponatremia with a sodium of 127 which I feel to be acute and she also has an DAVID. Her baseline creatinine is 0.69 and today is 1.51. She is hyperglycemic with a glucose of 333 however she has a history of diabetes and has been on steroids. She has a normal anion gap I do not suspect DKA. Urinalysis is not consistent with infection but does show glucose urea. Given patient's vague abdominal discomfort, significant diarrhea with this leukocytosis will obtain a CT of the abdomen pelvis. As she has had a mild cough we will add on a chest as well to look for more severe infectious symptoms. Will also order stool studies in case this is C. difficile or other infectious colitis. Discussed with patient that I would recommend admission given her hyponatremia, DAVID and the severity of her symptoms. She is agreeable. CT did show multifocal pneumonia. Patient is placed on broad-spectrum antibiotics Rocephin and azithromycin. Case discussed with hospitalist, Dr. Bowman for admission. Lab Data Attestation: I reviewed the patient's lab results. Labs: Laboratory Results - last 24 hr 05/15/23 01:05 WBC 23.0 H RBC 4.85 Hgb 14.8 Hct 43.8 MCV 90.3 MCH 30.5 MCHC 33.8 RDW Std Deviation 45.9 H RDW Coeff of Edvin 13.8 Plt Count 446 MPV 9.9 Immature Gran % (Auto) 2.400 H Neut % (Auto) 64.3 Lymph % (Auto) 25.1 [place] % (Auto) 6.8 Eos % (Auto) 0.2 Baso % (Auto) 1.2 H Absolute Neuts (auto) 14.8 H Absolute Lymphs (auto) 5.77 H Nucleated RBC % 0 Differential Comment SCANNED Diff Path Review May foll Tear Drop Cells RARE PT 21.6 H INR 1.9 Sodium 127 L Potassium 3.9 Chloride 96 L Carbon Dioxide 26.0 Anion Gap 5 BUN 34 H Creatinine 1.51 H Estim Creat Clear Calc 42.38 Est GFR (MDRD) Af Amer 46 L Est GFR (MDRD) Non-Af 38 L BUN/Creatinine Ratio 22.5 H Glucose 333 H Calcium 9.5 Total Bilirubin 0.30 AST 16 ALT 23 Alkaline Phosphatase 100 Total Creatine Kinase 100 Total Protein 7.1 Albumin 3.7 Globulin 3.4 Albumin/Globulin Ratio 1.1 Urine Color Yellow Urine Clarity Clear Urine pH 5.0 Ur Specific [place] 1.015 Urine Protein 30 H Urine Glucose (UA) 1000 H Urine Ketones Negative Urine Occult Blood 10 H Urine Nitrite Negative Urine Bilirubin Negative Urine Urobilinogen Normal Ur Leukocyte Esterase Negative Urine RBC 0-5 SEEN Urine WBC 0 SEEN Ur Squamous Epith Cells 0-5 SEEN Urine Bacteria 0 SEEN Urine Mucus 0 SEEN Radiography Chest X-Ray - ED: 2 View, Read by ED Physician, Read by Radiologist and No Acute Disease Diagnostic Testing: Clinical Impression(s) from Imaging Studies Chest X-Ray 05/15/23 01:20 IMPRESSION: No radiographic evidence of acute cardiopulmonary disease. Electronically Signed: Saida Jose MD at 1:49 EST Reading Location ID and State: [facility] / [place] , Service support , Chest/Abdomen/Pelvis CT 05/15/23 01:47 IMPRESSION: 1. Bilateral lower lobe airspace disease suggests multifocal pneumonia. 2. No CT evidence of acute intra-abdominal disease. Electronically Signed: Saida Jose MD at 2:44 EST , Rhythm Strip Rhythm Strip: Sinus Rhythm Rate: 68 Ectopy: None EKG Initial EKG: Attestation: I personally reviewed and interpreted this EKG as follows: Interpretation: Sinus Rhythm Comments: Normal sinus rhythm at a rate of 68 bpm Normal axis Normal intervals Normal ST segments Discharge Plan Dx/Rx/DC Orders Clinical Impression: DAVID (acute kidney injury), Diarrhea, Acute hyponatremia, Multifocal pneumonia Disposition Disposition: Acute Care [facility]
[2023-05-15] MEDS: Acetaminophen 325 MG Tablet 650 MG PO ×3 (01:05→22:49)
[2023-05-15] MEDS: 0.9% Normal Saline (1000mL) 1,000 ML 1000 ML IV (01:11)
[2023-05-15 01:19] LABS: Bacteria 0 SEEN /hpf (None Seen); Mucous, Urine 0 SEEN /hpf (<or=2+); White Blood Cells 0 SEEN /hpf (0-5)
[2023-05-15 01:20] LABS: Absolute Lymphocyte Count 5.77 X10^3/uL (0.83-4.51); Absolute Neutrophil Count 14.8 X10^3/uL (2.0-7.7); Basophil# 0.27 X10^3/uL; Basophil% 1.2 % (0-1); Eosinophil# 0.04 X10^3/uL; Eosinophils% 0.2 % (0-5); Hematocrit 43.8 % (37-47); Hemoglobin 14.8 g/dL (12.0-15.0); Lymphocyte # 5.77 X10^3/ul (0.83-4.51); Lymphocyte % 25.1 % (19-41); Mean Corp Hgb Conc 33.8 g/dL (32-36); Mean Corpuscular Hgb 30.5 pg (27.0-32.0); Mean Corpuscular Volume 90.3 fL (81-99); Mean Platelet Vol. 9.9 fl (6.2-12.0); Monocyte# 1.56 X10^3/uL; Monocyte% 6.8 % (0-10); NRBC Flagged by Analyzer 0 % (0-5); Neutrophil % 64.3 % (47-70); POSITIVE DIFFERENTIAL YES; Platelet Count 446 K/mm3 (150-450); RBC Distribution Width CV 13.8 % (11.6-14.6); RBC Distribution Width SD 45.9 fl (35.1-43.9); Red Blood Count 4.85 M/mm3 (4.2-5.4)
--- NOTE | 2023-05-15 01:20 | RAD_ITS ---
STUDY: X-RAY CHEST REASON FOR EXAM: Female, 52 years old patient with cough. TECHNIQUE: PA and lateral views of the chest. COMPARISON: Prior comparison studies are not available for review at this time. FINDINGS: There is mild interstitial thickening present in both lungs. The lungs are under expanded. There is no demonstrated pleural abnormality. Normal size heart. Normal mediastinum and chaparro. Normal visualized pulmonary arteries. There is atherosclerotic calcification of the aortic arch with tortuosity. There is an increased kyphosis of the thoracic spine. Normal visualized ribs, clavicles, and shoulders. There is no demonstrated abnormality of the visualized soft tissue structures of the upper abdomen. Surgical clips are visible in the right upper quadrant. RAD/Chest PA and Lateral IMPRESSION: No radiographic evidence of acute cardiopulmonary disease. Electronically Signed: Saida Jose MD at 1:49 EST ,
[2023-05-15 01:31] LABS: Color, Urine Yellow (Yellow); Differential Indicated SCAN CRITERIA MET; Glucose, Dipstick 1000 mg/dl (Normal); Ketone-Dipstick Negative (Negative); Leukocyte Esterase-Dipstick Negative /ul (Negative); Nitrite-Dipstick Negative (Negative); Occult Blood-Urine 10 /ul (Negative); Protein-Dipstick 30 mg/dl (Negative); Specific Gravity, Urine 1.015 (1.002-1.030); Urine Bilirubin Dipstick Negative (Negative); Urine Clarity Clear (Clear); Urine Urobilinogen Normal (Normal)
[2023-05-15 01:32] LABS: International Normalized Ratio 1.9; Prothrombin Time (Protime)PT. 21.6 SECONDS (11.7-14.9)
[2023-05-15 01:36] LABS: ALB/GLOB Ratio 1.1 RATIO (0.9-2.4); AST(SGOT) 16 U/L (15-37); Alanine Aminotransfer ALT/SGPT 23 U/L (13-56); Albumin, Serum 3.7 g/dL (3.2-5.0); Alkaline Phosphatase 100 U/L (45-117); Anion Gap 5 (5-15); BUN 34 mg/dL (7-18); BUN/Creat Ratio 22.5 RATIO (10-20); CPK Total, Creatine Kinase 100 U/L (26-192); Calcium,Total 9.5 mg/dL (8.5-10.1); Chloride 96 mmol/L (98-107); Creatinine, Serum 1.51 mg/dL (0.55-1.02); EST Glomerular Filtration Rate 38 mL/min (>60); Est Glom Filt Rate - Afr Amer 46 mL/min (>60); Estimated Creatinine Clearance 42.38 ml/min; Globulin 3.4 g/dL (2.2-4.2); Glucose 333 mg/dL (74-106); Potassium 3.9 mmol/L (3.5-5.1); Protein, Total 7.1 g/dL (6.4-8.2); Sodium Level 127 mmol/L (136-145)
[2023-05-15 01:45] LABS: Red Blood Cells-Urine 0-5 SEEN /hpf (0-5); Squamous Epithelial Cells - UA 0-5 SEEN /hpf (5-10)
--- NOTE | 2023-05-15 01:47 | CT_ITS ---
STUDY: CT CHEST, ABDOMEN T PELVIS WITHOUT CONTRAST REASON FOR EXAM: Female, 52 years old patient with diarrhea, cough, and illness. RADIATION DOSAGE (If Supplied By Facility): CTDIvol = ( 19.51 ) mGy, DLP = ( 1735.01 ) mGycm TECHNIQUE: Transaxial imaging was performed without the administration of intravenous contrast material. Multiplanar coronal and sagittal images were reformatted. Individualized dose optimization techniques were used for this CT. COMPARISON: No relevant priors. FINDINGS: CHEST There is heterogeneous airspace disease involving primarily the posterior segments of lower lobes with groundglass attenuation suggesting pneumonia. There is no demonstrated pleural abnormality. Normal heart and pericardium. Normal mediastinum. Normal hilar regions. Normal unenhanced pulmonary arteries. Normal aorta arch and descending thoracic aorta. There is an increased kyphosis of the thoracic spine. Sternum appears intact. Visualized ribs are within normal limits in appearance. ABDOMEN Normal liver. There are surgical clips in the gallbladder fossa consistent with a prior cholecystectomy. Normal spleen. Normal pancreas. Normal bilateral adrenal glands. Normal right kidney. Normal left kidney. Normal visualized stomach. Normal small intestine. Normal colon. The appendix is visualized and appears normal. Normal abdominal aorta. Normal inferior vena cava. Normal retroperitoneum. Normal abdominal wall. Normal osseous structures. PELVIS Normal urinary bladder. The bladder is adequately distended. There is no pelvic fluid. There is no pelvic lymphadenopathy or mass lesion. Normal visualized pelvic arteries. Normal abdominal wall. Normal osseous structures. CT/CT Chest, Abd, Pelvis WO Cont IMPRESSION: 1. Bilateral lower lobe airspace disease suggests multifocal pneumonia. 2. No CT evidence of acute intra-abdominal disease. Electronically Signed: Saida Jose MD at 2:44 EST Reading Location ID and State: [address] [place] [address] , Service support ,
[2023-05-15 02:03] LABS: Differential Comment SCANNED; Tear Drop Cell RARE
--- NOTE | 2023-05-15 03:05 | PCM.HP.STD ---
HPI - General General Date of Admission: 05/15/23 Date of Service: 05/15/23 Chief Complaint: Chills, diaphoresis, dizziness, diarrhea, congestion, cough. HPI Narrative The patient is a 52 y/o F w/ PMHx: Chart reported Hx CVA, Hx DVT, HTN, HLD, Anxiety and Depression, Diabetes mellitus type II, GERD, DONAVAN, Chronic Anemia/Fe deficiency anemia, Hx Aortic thromboembolism, Tobacco use who presents to the [facility] [place] [facility] on 05/15/23 with history of sinus congestion starting approximately week prior with PCP evaluation with negative COVID, influenza and RSV swab placed on a course of prednisone however she has been worsening with intermittent chills, diaphoresis, dizziness as well as recent onset of severe diarrhea for the last 2 to 3 days with increased urinary frequency and an episode of evening urinary incontinence which woke her from sleep the evening prior with fatigue and malaise as well as frontal headache with a mild nonproductive cough prompting eventual ED evaluation. He reports that no one in her immediate family has been ill but she has had some ill contacts at work. Workup in the ED included T97.6, heart rate 78, BP 121/72, respiratory rate 16, 98% on room air, CBC with WBC 23, hemoglobin 14.8, platelet 446 with left shift and lymphocytosis, coags with INR 1.9, PT 21.6, CMP with sodium 127, chloride 96, BUN/creatinine 34/1.51, glucose 333, hepatic profile unremarkable, urinalysis with protein 30, glucose 1000, occult blood 10 otherwise not marked appearing, SARS COVID and influenza antigen negative, chest x-ray with no acute cardiopulmonary findings, CT chest, abdomen and pelvis without contrast with bilateral lower lobe airspace disease suggestive of multifocal pneumonia with otherwise no acute findings. In the ED patient ministered 1 L normal saline as well as Tylenol 650 mg p.o. x 1, IV azithromycin and IV Rocephin. 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 Bruising Chronic cough Contraceptive management Depression Diabetes mellitus DVT (deep venous thrombosis) Easy bruising Excessive bleeding Gastric reflux History of echocardiogram History of kidney stones Injury of head and neck Leg cramps Leukocytosis Menorrhagia with irregular cycle Migraine headache Sleep apnea Smoker Wears dentures Wears glasses Home Medications metformin 500 mg tablet 1,000 mg PO BID diabetes 02/28/14 [History Last Taken 11/26/19 16:00] atorvastatin 40 mg tablet 80 mg PO DAILY cholesterol 11/26/19 [History Last Taken 11/25/19] clopidogrel 75 mg tablet 75 mg PO DAILY 12/14/19 [History Last Taken 07/05/22] warfarin 5 mg tablet 7 mg PO DAILY DVT 12/14/19 [History Last Taken 07/05/22] biotin 5,000 mcg disintegrating tablet 10,000 mcg PO DAILY 04/03/20 [History Last Taken Unknown] pantoprazole 40 mg tablet,delayed release 40 mg PO DAILY 04/03/20 [History Last Taken 07/09/22] doxepin 10 mg capsule 10 mg PO PRN PRN Sleep 12/14/20 [History Last Taken Unknown] escitalopram oxalate 20 mg tablet (Lexapro) 20 mg PO DAILY 12/14/20 [History Last Taken Unknown] bupropion HCl 150 mg tablet,12 hr sustained-release 150 mg PO BID 07/05/22 [History Last Taken Unknown] valsartan 160 mg tablet 160 mg PO DAILY 07/05/22 [History Last Taken 07/09/22] sennosides 8.6 mg-docusate sodium 50 mg tablet (Senexon-S) 1 tab PO BID PRN Constipation 11/25/22 [History Last Taken Unknown] dapagliflozin propanediol 10 mg tablet (Farxiga) 10 mg PO DAILY 05/15/23 [History Last Taken Unknown] Allergy/AdvReac Type Severity Reaction Status Date / Time latex Allergy Mild rash Verified 03/04/23 13:52 Penicillins [PCN] Allergy Hives Verified 03/04/23 13:52 Family History Brother Diabetes Father Diabetes Mother Diabetes Uncle Diabetes Skin cancer Colon cancer Uncle Diabetes Aunt Breast cancer Surgical History H/O lithotripsy H/O tubal ligation History of embolectomy History of esophagogastroduodenoscopy (EGD) Hx of cholecystectomy Hx of partial nephrectomy Status post endometrial ablation Social History (Updated 05/15/23 @ 03:[address] Leola Bowman MD) household members: family current occupational status: employed current occupation: [employer] history of recent travel: No sexually active: No Smoking Status: Current every day smoker tobacco type: cigarettes Smoking packs per day: 0.5 Smoking cigarettes per day: 10.0 alcohol intake: never substance use type: does not use what type of physical activity do you participate in: other seatbelt use: always do you feel safe at home: Yes additional social history: single ROS ROS Narrative Admission Review of Systems: CONSTITUTIONAL: No weight loss, fever, + chills, weakness or fatigue. HEENT: + Congestion, rhinorrhea, headache. Eyes: No visual loss, blurred vision, double vision or yellow sclerae. Ears, Nose, Throat: No hearing loss, sneezing. SKIN: No rash or itching, lesions, wounds. CARDIOVASCULAR: No chest pain, chest pressure or chest discomfort, palpitations, edema, orthopnea, syncopal events. RESPIRATORY: + Mild cough, dyspnea. No marked sputum, wheezing, hemoptysis. GASTROINTESTINAL: + anorexia, diarrhea. No nausea, vomiting, abdominal pain, melena, BRBPR. GENITOURINARY: No dysuria, frequency, urgency or retention. NEUROLOGICAL: + Headache, dizziness, No syncope, paralysis, ataxia, numbness or tingling in the extremities, focal weakness, change in bowel or bladder control, seizure. MUSCULOSKELETAL: + muscle, back pain, joint pain or stiffness. HEMATOLOGIC: + Hx anemia, easy bleeding/bruising. LYMPHATICS: No enlarged nodes. No history of splenectomy. PSYCHIATRIC: + history of depression or anxiety. ENDOCRINOLOGIC: No reports of sweating, cold or heat intolerance. No polyuria or polydipsia. ALLERGIES: + Hx hives. Vital Signs Vital Signs Vital Signs: 05/15/23 00:32 05/15/23 00:32 05/15/23 03:02 Temperature 97.6 F L 98.1 F Temperature Source Temporal Pulse Rate 78 64 Respiratory Rate 16 15 Respiratory Effort Normal Non-Labored Respiratory Pattern Normal Blood Pressure 121/72 H 111/60 Blood Pressure Mean 88 77 Pulse Ox 98 98 Oxygen Delivery Method Room Air 05/15/23 00:52 05/15/23 02:52 Temperature Temperature Source Pulse Rate 69 67 Respiratory Rate 14 16 Respiratory Effort Respiratory Pattern Blood Pressure Blood Pressure Mean Pulse Ox 98 98 Oxygen Delivery Method Room Air Room Air Weight Weight: 187 lb 13.341 oz Body Mass Index (BMI) 29.4 Physical Exam Narrative Physical Examination: General: Awake, alert, oriented x 3 and cooperative, seated upright in the ED bed in no apparent distress, fatigued appearing. Skin: Normal color, normal turgor, no icterus, no cyanosis. HEENT: AT/NC, EOMI, PERRLA, dry MM, no carotid bruits or JVD noted. Lungs: Diffusely diminished, greater bases, appropriate effort, no rales, ronchi or wheezing. Heart: Regular rate and rhythm; no gallop, rub audible. Abdomen: Soft, NTTP, ND, mildly hyperactive BS, no appreciated HSM. Extremities: No cyanosis, clubbing, or edema. Neurological: Patient awake, alert, oriented as noted, cognitive function intact although patient responses are slow but she is fatigued versus possibly baseline; pupils equally reactive to light and accommodation, cranial nerves grossly normal, moving all 4 extremities, no focal deficits, strength moderately globally decreased secondary to acute presentation complaints. Psychiatric: Affect appears flat, fatigued, no acute evidence of depressive or anxiety feelings but does have underlying history. Results Lab / Micro Data 05/15/23 01:05 05/15/23 01:05 Labs: Laboratory Results - last 24 hr 05/15/23 01:05: WBC 23.0 H, RBC 4.85, Hgb 14.8, Hct 43.8, MCV 90.3, MCH 30.5, MCHC 33.8, RDW Std Deviation 45.9 H, RDW Coeff of Edvin 13.8, Plt Count 446, MPV 9.9, Immature Gran % (Auto) 2.400 H, Neut % (Auto) 64.3, Lymph % (Auto) 25.1, Smith % (Auto) 6.8, Eos % (Auto) 0.2, Baso % (Auto) 1.2 H, Absolute Neuts (auto) 14.8 H, Absolute Lymphs (auto) 5.77 H, Nucleated RBC % 0, Differential Comment SCANNED, Diff Path Review May foll, Tear Drop Cells RARE, PT 21.6 H, INR 1.9, Sodium 127 L, Potassium 3.9, Chloride 96 L, Carbon Dioxide 26.0, Anion Gap 5, BUN 34 H, Creatinine 1.51 H, Estim Creat Clear Calc 42.38, Est GFR (MDRD) Af Amer 46 L, Est GFR (MDRD) Non-Af 38 L, BUN/Creatinine Ratio 22.5 H, Glucose 333 H, Calcium 9.5, Total Bilirubin 0.30, AST 16, ALT 23, Alkaline Phosphatase 100, Total Creatine Kinase 100, Total Protein 7.1, Albumin 3.7, Globulin 3.4, Albumin/Globulin Ratio 1.1, Urine Color Yellow, Urine Clarity Clear, Urine pH 5.0, Ur Specific [place] 1.015, Urine Protein 30 H, Urine Glucose (UA) 1000 H, Urine Ketones Negative, Urine Occult Blood 10 H, Urine Nitrite Negative, Urine Bilirubin Negative, Urine Urobilinogen Normal, Ur Leukocyte Esterase Negative, Urine RBC 0-5 SEEN, Urine WBC 0 SEEN, Ur Squamous Epith Cells 0-5 SEEN, Urine Bacteria 0 SEEN, Urine Mucus 0 SEEN Micro: Microbiology 05/15/23 01:05 Nasal Secretion SARS-CoV-2 & FLU Antigen (Rapid) - Final Rhythm Strip Rhythm Strip: Sinus Rhythm Rate: 68 Ectopy: None Imagaing Radiology Impression Chest X-Ray 05/15/23 01:20 IMPRESSION: No radiographic evidence of acute cardiopulmonary disease. Electronically Signed: Saida Jose MD at 1:49 EST , Chest/Abdomen/Pelvis CT 05/15/23 01:47 IMPRESSION: 1. Bilateral lower lobe airspace disease suggests multifocal pneumonia. 2. No CT evidence of acute intra-abdominal disease. Electronically Signed: Saida Jose MD at 2:44 EST , Assessment & Plan Assessment/Plan (1) Multifocal pneumonia: PLAN: Plan The patient is a 52 y/o F w/ PMHx: Chart reported history of CVA, Hx DVT, HTN, HLD, Anxiety and Depression, Diabetes mellitus type II, GERD, DONAVAN, Chronic Anemia/Fe deficiency anemia, Hx Aortic thromboembolism, Tobacco use who presents to the [facility] [place] [facility] on 05/15/23 with history of sinus congestion starting approximately week prior with PCP evaluation with negative COVID, influenza and RSV swab placed on a course of prednisone however she has been worsening with intermittent chills, diaphoresis, dizziness as well as recent onset of severe diarrhea for the last 2 to 3 days with increased urinary frequency and an episode of evening urinary incontinence which woke her from sleep the evening prior with fatigue and malaise as well as frontal headache with a mild nonproductive cough prompting eventual ED evaluation. #1. Bilateral multifocal pneumonia possibly bacterial superimposed on recent acute viral illness: Will admit to [facility], maintain on oxygen with wean as tolerated to room air, PRN albuterol, maintained on IV Rocephin and Azithromycin, HOB, IS parameters w/ pending sputum cultures, full respiratory viral panel, procalcitonin, COVID PCR and urine antigens, stool enteric also requested. Of note patient recently on steroids thus unclear if leukocytosis is related primarily to this. #2. Acute kidney injury: Secondary to GI losses. Admission BUN/Cr 34/1.51, prior baseline creatinine noted to be primarily 0.6. Will hydrate, hold nephrotoxic medications and repeat chemistry in AM. If no improvement would plan FeNa assessment. #3. Hyponatremia, hypochloremia, hypovolemic: Admission sodium 127, chloride 96, given GI losses presumed hypovolemic, continue aggressive hydration with repeat CMP in AM. #4. History of VTE, history aortic thromboembolism: We will continue patient home Coumadin, Plavix with INR trending. #5. Hypertension: Holding home ARB given DAVID, PRN hydralazine. #6. Hyperlipidemia: We will continue patient on statin therapy. #7. Diabetes mellitus type II with hyperglycemia: Admission glucose notably elevated 333 in the setting of acute illness, hold oral home regimen, ADA diet, accu checks w/ ISS. #8. Anxiety and depression: We will continue patient home escitalopram, bupropion and doxepin at home regimen. #9. Chart reported History CVA: Unclear if true diagnosis, patient denies deficits, potential prior evaluation and work-up. MRI imaging noted 11/27/19 with no noted MRI evidence of CVA pr prior at that time. We will continue patient home Plavix, Coumadin with INR trending, statin therapy, holding hypertensive regimen given DAVID, resume once appropriate, holding oral diabetic regimen with adjustments as noted. #10. GERD: We will continue patient on PPI. #11. DONAVAN: CPAP nightly. #12. DVT prophylaxis: Continue patient home Coumadin with INR trending. Charges/Coding Visit Charges Inpatient E&M: 49611 Init Hosp L3
[2023-05-15] MEDS: Ceftriaxone 1 GM/50 ML BAG IV ×2 (03:17→22:41)
[2023-05-15 03:39] LABS: Magnesium 1.9 mg/dL (1.6-2.6); Phosphorus 3.6 mg/dL (2.5-4.9)
[2023-05-15] MEDS: Azithromycin 500 MG in Dextrose 5%-Water (250mL Bag) 250 ML 250 MG IV ×2 (04:00→23:46)
[2023-05-15 04:10] LABS: Procalcitonin 0.05 ng/mL (0.00-0.09)
[2023-05-15] MEDS: 0.9% Normal Saline (1000mL) 1,000 ML 125 ML IV ×2 (04:59→12:12)
[2023-05-15 06:37] LABS: M R Staph aureus DNA By PCR Negative (Negative); Probe Check PASS; Specimen Processing Control PASS
[2023-05-15] MEDS: guaiFENesin 10 ML UDC (200MG/10ML) 20 ML PO (06:41)
[2023-05-15] MEDS: Insulin Lispro 100 UNIT/ML INSULN.PEN SC ×4 (06:43→22:49)
[2023-05-15 07:35] LABS: Bedside Glucose 336 mg/dL (74-106)
[2023-05-15 07:42] LABS: Absolute Lymphocyte Count 6.14 X10^3/uL (0.83-4.51); Absolute Neutrophil Count 10.1 X10^3/uL (2.0-7.7); Basophil# 0.19 X10^3/uL; Basophil% 1.1 % (0-1); Eosinophils% 1.1 % (0-5); Hematocrit 40.1 % (37-47); Hemoglobin 13.4 g/dL (12.0-15.0); Lymphocyte # 6.14 X10^3/ul (0.83-4.51); Mean Corp Hgb Conc 33.4 g/dL (32-36); Mean Corpuscular Hgb 30.2 pg (27.0-32.0); Mean Corpuscular Volume 90.3 fL (81-99); Mean Platelet Vol. 9.7 fl (6.2-12.0); Monocyte# 1.13 X10^3/uL; Monocyte% 6.3 % (0-10); NRBC Flagged by Analyzer 0 % (0-5); Neutrophil # 10.11 X10^3/uL (2.7-7.7); Neutrophil % 55.9 % (47-70); POSITIVE DIFFERENTIAL YES; POSITIVE MORPHOLOGY YES; Platelet Count 410 K/mm3 (150-450); RBC Distribution Width CV 13.9 % (11.6-14.6); RBC Distribution Width SD 46.1 fl (35.1-43.9); Red Blood Count 4.44 M/mm3 (4.2-5.4); White Blood Count 18.1 K/mm3 (4.4-11.0)
[2023-05-15 07:48] LABS: Differential Indicated SCAN CRITERIA MET
[2023-05-15 08:34] LABS: Differential Comment SCANNED
[2023-05-15 09:47] LABS: International Normalized Ratio 2.3; Prothrombin Time (Protime)PT. 25.8 SECONDS (11.7-14.9)
[2023-05-15] MEDS: buPROPion (SR) 150 MG Tablet.SA PO ×2 (09:59→22:48)
[2023-05-15] MEDS: Escitalopram Oxalate 20 MG Tablet PO (10:00)
[2023-05-15] MEDS: Pantoprazole Sodium 40 MG Tablet PO (10:00)
[2023-05-15] MEDS: Clopidogrel Bisulfate 75 MG Tablet PO (10:00)
[2023-05-15 10:15] LABS: ALB/GLOB Ratio 1.1 RATIO (0.9-2.4); AST(SGOT) 15 U/L (15-37); Alanine Aminotransfer ALT/SGPT 20 U/L (13-56); Albumin, Serum 3.2 g/dL (3.2-5.0); Alkaline Phosphatase 84 U/L (45-117); Anion Gap 8 (5-15); BUN 25 mg/dL (7-18); BUN/Creat Ratio 26.4 RATIO (10-20); Calcium,Total 8.7 mg/dL (8.5-10.1); Chloride 105 mmol/L (98-107); Creatinine, Serum 0.95 mg/dL (0.55-1.02); EST Glomerular Filtration Rate 66 mL/min (>60); Est Glom Filt Rate - Afr Amer 80 mL/min (>60); Estimated Creatinine Clearance 64.85 ml/min; Globulin 2.9 g/dL (2.2-4.2); Glucose 255 mg/dL (74-106); Potassium 3.4 mmol/L (3.5-5.1); Protein, Total 6.1 g/dL (6.4-8.2); Sodium Level 136 mmol/L (136-145)
--- NOTE | 2023-05-15 11:33 | CHAPLAIN ---
Type of Pastoral Visit _x__ Initial Visit ___ Follow-up Visit ___ On-call Visit ___ General Patient Visit ___ Spiritual Assessment ___ Family Conference ___ Bereavement ___ Rapid Response ___ Code Blue ___ Other (describe below) Pastoral Care Referral From _x__ Patient ___ Family ___ Nurse ___ Physician ___ Color Control Supervisor ___ Automotive Engineering Teacher ___ Other (describe below) Sacrament/Intervention _x__ Active listening ___ Anointing ___ Yarsanism ___ Bereavement ___ Communion ___ Meena exploration ___ ___ Life review _x__ Prayer ___ Reconciliation ___ Sacrament of Sick _x__ Supportive presence ___ Wedding ___ Other (describe below) Pastoral Comments patient explains her health concerns and how she feels about the situation; pt looking for more answers; pt also addresses concern for her son who had a friend tragically recently; pt has more than health issues; pt welcomes presence and prayer for support
[2023-05-15 11:40] LABS: Bedside Glucose 227 mg/dL (74-106)
--- NOTE | 2023-05-15 13:55 | CASEMGMT ---
KATHRIN MANDEL Assessment: Face to Face with pt for initial transition planning/care coordination assessment. RN TEQUILA introduced self and role at [facility], pt voices understanding and consents to assessment. Pt is A/O x4 and answers all questions appropriately at this time. Pt laying in bed on RA comfortably at this time in no distress. Care providers, pharmacy, and demographics verified/updated. Admitting Dx: Multifocal PNA PCP: [place] Specialists: ABDOULAYE De Luna Preferred Pharmacy: [facility] Insurance: [employer] Prescription Benefit: yes LW/HPOA: Pt denies having a LW/DPOA. Pt interested in getting, will provide RACK card LNOK: Yeison Friend - Son Phuc, Juan - Son Living Arrangements: Pt lives with both sons in a 2 story home with a ramp to enter. Pt states normally independent and denies concerns at home. Transportation: Pt drives self and denies concerns with transportation. DME: Pt states having a CPAP and Glucometer at home with enough supplies. HHC/SNF: Denies history of Pt states no concerns with going home at time of dc. Pt states trying to quit smoking. Pt states smoking half a pack of cigarettes per day. Pt states rarely using ETOH. Denies illicit or street drugs. Pt states no further concerns/needs. CM to follow. Advised pt to ask CM if any further question/concerns/needs arise, voices understanding. Pt Goal: To return home Plan: DC to home
[2023-05-15 13:59] LABS: Pathologist Review Reviewed
--- NOTE | 2023-05-15 16:16 | PN_ITS ---
Subjective Subjective Patient seen and examined prior to discharge. She felt very weak and tired. She denied any fever or chills, cough, chest pain, palpitations, dizziness, nausea vomiting or any other symptoms. Review of systems otherwise negative. She has remained hemodynamically stable. Objective Data Objective Data Vital Signs: Vital Signs Temp Pulse Resp BP Pulse Ox O2 Del Method 97.9 F 70 18 115/61 95 Room Air 05/15/23 15:27 05/15/23 15:27 05/15/23 15:27 05/15/23 15:27 05/15/23 15:27 05/15/23 15:28 Oxygen Delivery Method Room Air Weight: 186 lb 1.122 oz Body Mass Index (BMI) 29.2 Intake & Output: Intake and Output for Last 24 Hours 05/13/23 05/14/23 05/15/23 23:59 23:59 23:59 Intake Total 2507.08 / 2507.08 Output Total 400 / 400 Balance 2107.08 / 2107.08 Lab / Micro Data 05/15/23 07:35 05/15/23 07:35 Labs: Laboratory Results - last 24 hr 05/15/23 01:05: WBC 23.0 H, RBC 4.85, Hgb 14.8, Hct 43.8, MCV 90.3, MCH 30.5, MCHC 33.8, RDW Std Deviation 45.9 H, RDW Coeff of Edvin 13.8, Plt Count 446, MPV 9.9, Immature Gran % (Auto) 2.400 H, Neut % (Auto) 64.3, Lymph % (Auto) 25.1, [place] % (Auto) 6.8, Eos % (Auto) 0.2, Baso % (Auto) 1.2 H, Absolute Neuts (auto) 14.8 H, Absolute Lymphs (auto) 5.77 H, Nucleated RBC % 0, Differential Comment SCANNED, Diff Path Review Reviewed, Tear Drop Cells RARE, PT 21.6 H, INR 1.9, Sodium 127 L, Potassium 3.9, Chloride 96 L, Carbon Dioxide 26.0, Anion Gap 5, BUN 34 H, Creatinine 1.51 H, Estim Creat Clear Calc 42.38, Est GFR (MDRD) Af Amer 46 L, Est GFR (MDRD) Non-Af 38 L, BUN/Creatinine Ratio 22.5 H, Glucose 333 H, Calcium 9.5, Phosphorus 3.6, Magnesium 1.9, Total Bilirubin 0.30, AST 16, ALT 23, Alkaline Phosphatase 100, Total Creatine Kinase 100, Total Protein 7.1, Albumin 3.7, Globulin 3.4, Albumin/Globulin Ratio 1.1, Urine Color Yellow, Urine Clarity Clear, Urine pH 5.0, Ur Specific [place] 1.015, Urine Protein 30 H, Urine Glucose (UA) 1000 H, Urine Ketones Negative, Urine Occult Blood 10 H, Urine Nitrite Negative, Urine Bilirubin Negative, Urine Urobilinogen Normal, Ur Leukocyte Esterase Negative, Urine RBC 0-5 SEEN, Urine WBC 0 SEEN, Ur Squamous Epith Cells 0-5 SEEN, Urine Bacteria 0 SEEN, Urine Mucus 0 SEEN 05/15/23 03:30: Procalcitonin 0.05 05/15/23 04:32: MRSA (PCR) Negative 05/15/23 06:43: POC Glucose 336 H 05/15/23 07:35: WBC 18.1 H, RBC 4.44, Hgb 13.4, Hct 40.1, MCV 90.3, MCH 30.2, MCHC 33.4, RDW Std Deviation 46.1 H, RDW Coeff of Edvin 13.9, Plt Count 410, MPV 9.7, Immature Gran % (Auto) 1.600 H, Neut % (Auto) 55.9, Lymph % (Auto) 34.0, [place] % (Auto) 6.3, Eos % (Auto) 1.1, Baso % (Auto) 1.1 H, Absolute Neuts (auto) 10.1 H, Absolute Lymphs (auto) 6.14 H, Nucleated RBC % 0, Differential Comment SCANNED, PT 25.8 H, INR 2.3, Sodium 136, Potassium 3.4 L, Chloride 105, Carbon Dioxide 23.0, Anion Gap 8, BUN 25 H, Creatinine 0.95, Estim Creat Clear Calc 64.85, Est GFR (MDRD) Af Amer 80, Est GFR (MDRD) Non-Af 66, BUN/Creatinine Ratio 26.4 H, Glucose 255 H, Calcium 8.7, Total Bilirubin 0.40, AST 15, ALT 20, Alkaline Phosphatase 84, Total Protein 6.1 L, Albumin 3.2, Globulin 2.9, Albumin/Globulin Ratio 1.1 05/15/23 11:22: POC Glucose 227 H Micro: Microbiology 05/15/23 05:55 Mucosa - Nose Coronavirus COVID-19 PCR - Final 05/15/23 05:55 Mucosa - Nose Respiratory Panel (PCR) - Final 05/15/23 04:50 Urine, Random Legionella Antigen - Final 05/15/23 04:50 Urine, Random Streptococcus pneumoniae Antigen (M - Final 05/15/23 01:05 Nasal Secretion SARS-CoV-2 & FLU Antigen (Rapid) - Final Radiography Diagnostic Testing: Radiology Impression Chest X-Ray 05/15/23 01:20 IMPRESSION: No radiographic evidence of acute cardiopulmonary disease. Electronically Signed: Saida Jose MD at 1:49 EST , Chest/Abdomen/Pelvis CT 05/15/23 01:47 IMPRESSION: 1. Bilateral lower lobe airspace disease suggests multifocal pneumonia. 2. No CT evidence of acute intra-abdominal disease. Electronically Signed: Saida Jose MD at 2:44 EST , Rhythm Strip Rhythm Strip: Sinus Rhythm Rate: 68 Ectopy: None Physical Exam Const alert and oriented x3 Constitutional Narrative: frail, weak HEENT normocephalic and head/scalp atraumatic Mouth: dry mucous membranes Eyes PERRL and EOMs intact bilaterally Neck no lymphadenopathy and supple Lymph Lymphatic: no lymphadenopathy noted and no lymphedema noted Resp normal respiratory effort, normal air movement and clear to auscultation bilaterally Cardio regular rate, regular rhythm, S1 normal heart sound, S2 normal heart sound and no murmurs GI normal to inspection, nondistended, normoactive bowel sounds, soft to palpation, non-tender and non-distended Extremity normal capillary refill, no clubbing, cyanosis or edema and no calf tenderness General Extremity: no tenderness to palpation of joints or extremities Skin General Skin Exam: no breakdown Neuro CN's II-XII intact bilaterally, no focal motor deficits, no sensory deficits noted and deep tendon reflexes 2+ bilaterally Motor Exam: strength 5/5 throughout and general weakness Psych thought process normal and cooperative Appearance: appropriate Assessment & Plan Assessment/Plan (1) Multifocal pneumonia: (2) Acute hyponatremia: (3) Diarrhea: (4) DAVID (acute kidney injury): PLAN: Plan #Bilateral pneumonia * Likely superimposed on recent viral illness. Currently on room air but feels very weak and tired. * On ceftriaxone and azithromycin. * Breathing treatments bronchodilators. Urine for strep and Legionella negative. COVID both PCR and antigen test negative. Flu test negative * titrate oxygen if needed to maintain sats >90% * #DAVID: Likely due to diarrhea. Creatinine was 1.51 on admission with a baseline of 0.6. Hydrate gently with IV fluids and monitor. #Hyponatremia: Sodium was 127 on admission which was thought to be due to dehydration. Being hydrated with IV fluids and will monitor sodium. Sodium this morning is 136. 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 Also on Plavix. Target INR is between 2 and 3. INR is 2.3 #Hypokalemia: Potassium is 3.4 this morning. Will replace and trend. #Hypertension: IV hydralazine as needed. Valsartan on hold due to DAVID. #Hyperlipidemia: On statin #Type 2 diabetes mellitus with hyperglycemia: Insulin sliding scale. Checks ACHS. All meds held on admission. #GERD: PPI #DONAVAN: On CPAP nightly. #Depression: On escitalopram and bupropion #DVT prophylaxis: On Coumadin. Monitor INR with target INR of 2-3. Charges/Coding Visit Charges Inpatient E&M: 76197 Subs Hosp L2
[2023-05-15] MEDS: Jantoven 2 MG Tablet PO (16:56)
[2023-05-15 17:04] LABS: Bedside Glucose 192 mg/dL (74-106)
[2023-05-15] MEDS: Atorvastatin Calcium 80 MG Tablet PO (22:48)
--- NOTE | 2023-05-15 23:02 | CPS ---
[2230] Pt. politely refused CPAP use for the night. Pt.'s oxygenation status is 95% on room air while a sleep.
[2023-05-15 23:14] LABS: Bedside Glucose 220 mg/dL (74-106)
[2023-05-16 04:31] VITALS: BMI 29.2
[2023-05-16 04:42] VITALS: BP 131/69; PULSE 71; RESP 16; TEMP 36.6; O2SAT 96
[2023-05-16] MEDS: Insulin Lispro 100 UNIT/ML INSULN.PEN SC ×4 (06:25→21:25)
[2023-05-16 06:48] LABS: Bedside Glucose 172 mg/dL (74-106)
[2023-05-16 07:44] VITALS: BP 139/74; PULSE 60; RESP 18; TEMP 36.6; O2SAT 97
[2023-05-16] MEDS: Pantoprazole Sodium 40 MG Tablet PO (07:50)
[2023-05-16] MEDS: Escitalopram Oxalate 20 MG Tablet PO (07:50)
[2023-05-16] MEDS: Clopidogrel Bisulfate 75 MG Tablet PO (07:50)
[2023-05-16] MEDS: Potassium Chloride Oral Tablet 20 MEQ 40 MEQ PO (07:50)
[2023-05-16] MEDS: buPROPion (SR) 150 MG Tablet.SA PO ×2 (07:50→21:17)
[2023-05-16] MEDS: Acetaminophen 325 MG Tablet 650 MG PO ×2 (07:56→21:20)
[2023-05-16 08:15] VITALS: O2SAT 97
[2023-05-16 08:17] LABS: Absolute Lymphocyte Count 5.62 X10^3/uL (0.83-4.51); Absolute Neutrophil Count 6.8 X10^3/uL (2.0-7.7); Basophil% 1.4 % (0-1); Eosinophil# 0.28 X10^3/uL; Hematocrit 42.3 % (37-47); Lymphocyte # 5.62 X10^3/ul (0.83-4.51); Lymphocyte % 40.1 % (19-41); Mean Corp Hgb Conc 33.1 g/dL (32-36); Mean Corpuscular Hgb 30.7 pg (27.0-32.0); Mean Corpuscular Volume 92.8 fL (81-99); Mean Platelet Vol. 9.9 fl (6.2-12.0); Monocyte# 0.84 X10^3/uL; NRBC Flagged by Analyzer 0 % (0-5); Neutrophil # 6.79 X10^3/uL (2.7-7.7); Neutrophil % 48.6 % (47-70); POSITIVE DIFFERENTIAL YES; Platelet Count 399 K/mm3 (150-450); RBC Distribution Width CV 14.4 % (11.6-14.6); RBC Distribution Width SD 48.8 fl (35.1-43.9); Red Blood Count 4.56 M/mm3 (4.2-5.4)
[2023-05-16 08:24] LABS: Differential Indicated SCAN CRITERIA MET
[2023-05-16 08:27] LABS: Anion Gap 5 (5-15); BUN 16 mg/dL (7-18); Calcium,Total 9.2 mg/dL (8.5-10.1); Chloride 109 mmol/L (98-107); Creatinine, Serum 0.57 mg/dL (0.55-1.02); EST Glomerular Filtration Rate 118 mL/min (>60); Est Glom Filt Rate - Afr Amer 142 mL/min (>60); Estimated Creatinine Clearance 108.08 ml/min; Glucose 158 mg/dL (74-106); Potassium 3.6 mmol/L (3.5-5.1); Sodium Level 138 mmol/L (136-145)
[2023-05-16 09:45] LABS: Reactive Lymphocyte 1+
[2023-05-16 11:01] LABS: Bedside Glucose 258 mg/dL (74-106)
--- NOTE | 2023-05-16 13:10 | PN_ITS ---
Subjective Subjective Patient seen and examined. She said she felt better today. She denied any fever, chills, palpitations, dizziness, nausea, vomiting or any other symptoms. Review of systems is otherwise negative. Objective Data Objective Data Vital Signs: Vital Signs Temp Pulse Resp BP Pulse Ox O2 Del Method 97.9 F 60 18 139/74 H 97 Room Air 05/16/23 07:44 05/16/23 07:44 05/16/23 07:44 05/16/23 07:44 05/16/23 08:15 05/16/23 08:15 Oxygen Delivery Method Room Air Weight: 186 lb 1.122 oz Body Mass Index (BMI) 29.2 Intake & Output: Intake and Output for Last 24 Hours 05/14/23 05/15/23 05/16/23 23:59 23:59 23:59 Intake Total 3557.08 / 3857.08 755 / 755 Output Total 400 / 400 500 / 500 Balance 3157.08 / 3457.08 255 / 255 Lab / Micro Data 05/16/23 07:45 05/16/23 07:45 Labs: Laboratory Results - last 24 hr 05/15/23 01:05: Diff Path Review Reviewed 05/15/23 16:44: POC Glucose 192 H 05/15/23 22:52: POC Glucose 220 H 05/16/23 06:24: POC Glucose 172 H 05/16/23 07:45: WBC 14.0 H, RBC 4.56, Hgb 14.0, Hct 42.3, MCV 92.8, MCH 30.7, MCHC 33.1, RDW Std Deviation 48.8 H, RDW Coeff of Edvin 14.4, Plt Count 399, MPV 9.9, Immature Gran % (Auto) 1.900 H, Neut % (Auto) 48.6, Lymph % (Auto) 40.1, [place] % (Auto) 6.0, Eos % (Auto) 2.0, Baso % (Auto) 1.4 H, Absolute Neuts (auto) 6.8, Absolute Lymphs (auto) 5.62 H, Nucleated RBC % 0, Reactive Lymphocytes 1+, Sodium 138, Potassium 3.6, Chloride 109 H, Carbon Dioxide 24.0, Anion Gap 5, BUN 16, Creatinine 0.57, Estim Creat Clear Calc 108.08, Est GFR (MDRD) Af Amer 142, Est GFR (MDRD) Non-Af 118, BUN/Creatinine Ratio 28.0 H, Glucose 158 H, Calcium 9.2 05/16/23 10:42: POC Glucose 258 H Micro: Microbiology 05/15/23 17:00 Stool Stool Lactoferrin - Final 05/15/23 17:00 Stool Enteric Bacteriology - Final 05/15/23 17:00 Stool C. difficile GDH Antigen & Toxins - Final 05/15/23 17:00 Stool C. difficile DNA Amplification - Final 05/15/23 05:55 Mucosa - Nose Coronavirus COVID-19 PCR - Final 05/15/23 05:55 Mucosa - Nose Respiratory Panel (PCR) - Final 05/15/23 04:50 Urine, Random Legionella Antigen - Final 05/15/23 04:50 Urine, Random Streptococcus pneumoniae Antigen (M - Final 05/15/23 01:05 Nasal Secretion SARS-CoV-2 & FLU Antigen (Rapid) - Final Rhythm Strip Rhythm Strip: Sinus Rhythm Rate: 68 Ectopy: None Physical Exam Const alert and oriented x3 Constitutional Narrative: frail, looks better than yesterday. HEENT normocephalic and head/scalp atraumatic Eyes PERRL and EOMs intact bilaterally Neck no lymphadenopathy and supple Lymph Lymphatic: no lymphadenopathy noted and no lymphedema noted Resp normal respiratory effort, normal air movement and clear to auscultation bilaterally Cardio regular rate, regular rhythm, S1 normal heart sound, S2 normal heart sound and no murmurs GI normal to inspection, nondistended, normoactive bowel sounds, soft to palpation, non-tender and non-distended Extremity normal capillary refill, no clubbing, cyanosis or edema and no calf tenderness General Extremity: no tenderness to palpation of joints or extremities Skin General Skin Exam: no breakdown Neuro CN's II-XII intact bilaterally, no focal motor deficits, no sensory deficits noted and deep tendon reflexes 2+ bilaterally Motor Exam: strength 5/5 throughout and general weakness Psych thought process normal and cooperative Mood & Affect: flat affect Assessment & Plan Assessment/Plan (1) Multifocal pneumonia: (2) Acute hyponatremia: (3) Diarrhea: (4) DAVID (acute kidney injury): PLAN: Plan #Bilateral pneumonia * Likely superimposed on recent viral illness. Currently on room air but feels very weak and tired. * On ceftriaxone and azithromycin. * Breathing treatments bronchodilators. Urine for strep and Legionella ne gative. COVID both PCR and antigen test negative. Flu test negative * titrate oxygen if needed to maintain sats >90% * feels better today * #DAVID: resovled. Cr is down to 0.57 #Hyponatremia:resolved. Sodium is 138 today. 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 Also on Plavix. Target INR is between 2 and 3. INR is therapeutic #Hypokalemia: Potassium is 3.4 this morning. Will replace and trend. #Hypertension: IV hydralazine as needed. Valsartan on hold due to DAVID. #Hyperlipidemia: On statin #Type 2 diabetes mellitus with hyperglycemia: Insulin sliding scale. Checks ACHS. All meds held on admission. #GERD: PPI #DONAVAN: On CPAP nightly. #Depression: On escitalopram and bupropion #DVT prophylaxis: On Coumadin. Monitor INR with target INR of 2-3. Charges/Coding Visit Charges Inpatient E&M: 06376 Subs Hosp L2
[2023-05-16 13:55] LABS: International Normalized Ratio 2.2; Prothrombin Time (Protime)PT. 24.9 SECONDS (11.7-14.9)
[2023-05-16 14:00] VITALS: BP 114/69; PULSE 75; RESP 18; TEMP 36.7; O2SAT 98
--- NOTE | 2023-05-16 15:59 | CASEMGMT ---
KATHRIN MANDEL provided pt with social work rack card for AD. Pt denies further needs at this time.
[2023-05-16] MEDS: metFORMIN HCl 1,000 MG Tablet 1000 MG PO (16:20)
[2023-05-16] MEDS: Jantoven 2 MG Tablet PO (16:21)
[2023-05-16 16:35] LABS: Bedside Glucose 279 mg/dL (74-106)
[2023-05-16 19:49] VITALS: BP 116/63; PULSE 63; RESP 16; TEMP 37.1; O2SAT 97
[2023-05-16] MEDS: Ceftriaxone 1 GM/50 ML BAG IV (21:17)
[2023-05-16] MEDS: Atorvastatin Calcium 80 MG Tablet PO (21:17)
[2023-05-16 21:55] LABS: Bedside Glucose 234 mg/dL (74-106)
--- NOTE | 2023-05-16 22:05 | CPS ---
Pt refused PAP therapy for the night
[2023-05-16] MEDS: Azithromycin 500 MG in Dextrose 5%-Water (250mL Bag) 250 ML 250 MG IV (22:10)
[2023-05-17 02:29] VITALS: BP 117/69; PULSE 65; RESP 16; TEMP 37.2; O2SAT 98
[2023-05-17] MEDS: Insulin Lispro 100 UNIT/ML INSULN.PEN SC ×2 (05:38→11:24)
[2023-05-17 06:00] VITALS: BMI 29.3
[2023-05-17 06:03] LABS: Bedside Glucose 293 mg/dL (74-106)
[2023-05-17 06:23] LABS: Absolute Lymphocyte Count 4.84 X10^3/uL (0.83-4.51); Absolute Neutrophil Count 6.1 X10^3/uL (2.0-7.7); Basophil# 0.14 X10^3/uL; Basophil% 1.1 % (0-1); Eosinophil# 0.16 X10^3/uL; Eosinophils% 1.3 % (0-5); Hematocrit 40.9 % (37-47); Hemoglobin 13.7 g/dL (12.0-15.0); Lymphocyte # 4.84 X10^3/ul (0.83-4.51); Lymphocyte % 39.5 % (19-41); Mean Corp Hgb Conc 33.5 g/dL (32-36); Mean Corpuscular Hgb 30.7 pg (27.0-32.0); Mean Corpuscular Volume 91.7 fL (81-99); Mean Platelet Vol. 9.8 fl (6.2-12.0); Monocyte# 0.82 X10^3/uL; Monocyte% 6.7 % (0-10); NRBC Flagged by Analyzer 0 % (0-5); Neutrophil # 6.07 X10^3/uL (2.7-7.7); Neutrophil % 49.5 % (47-70); Platelet Count 389 K/mm3 (150-450); RBC Distribution Width SD 47.6 fl (35.1-43.9); Red Blood Count 4.46 M/mm3 (4.2-5.4); White Blood Count 12.3 K/mm3 (4.4-11.0)
[2023-05-17 06:51] LABS: Anion Gap 4 (5-15); BUN 15 mg/dL (7-18); BUN/Creat Ratio 21.9 RATIO (10-20); Calcium,Total 8.5 mg/dL (8.5-10.1); Chloride 108 mmol/L (98-107); Creatinine, Serum 0.68 mg/dL (0.55-1.02); EST Glomerular Filtration Rate 95 mL/min (>60); Est Glom Filt Rate - Afr Amer 115 mL/min (>60); Glucose 286 mg/dL (74-106); Potassium 3.7 mmol/L (3.5-5.1); Sodium Level 138 mmol/L (136-145)
[2023-05-17 07:17] VITALS: O2SAT 98
[2023-05-17] MEDS: metFORMIN HCl 1,000 MG Tablet 1000 MG PO (08:07)
[2023-05-17] MEDS: Clopidogrel Bisulfate 75 MG Tablet PO (08:07)
[2023-05-17] MEDS: buPROPion (SR) 150 MG Tablet.SA PO (08:08)
[2023-05-17] MEDS: Pioglitazone Hydrochloride 30 MG Tablet PO (08:09)
[2023-05-17] MEDS: Escitalopram Oxalate 20 MG Tablet PO (08:09)
[2023-05-17] MEDS: Pantoprazole Sodium 40 MG Tablet PO (08:09)
[2023-05-17] MEDS: Empagliflozin 25 MG Tablet PO (08:10)
[2023-05-17] MEDS: Losartan Potassium 50 MG Tablet PO (08:10)
[2023-05-17 08:53] VITALS: BP 125/70; PULSE 70; RESP 16; TEMP 36.4; O2SAT 98
[2023-05-17 11:46] VITALS: BP 120/58; PULSE 63; RESP 16; TEMP 36.6; O2SAT 96
[2023-05-17 12:00] LABS: Bedside Glucose 178 mg/dL (74-106)
--- NOTE | 2023-05-17 12:51 | DS.PCM_ITS ---
Providers Date of Admission: 05/15/23 Date of Discharge: 05/17/23 Primary Care Physician: Dr. Shashank Tai MD Reason For Visit: MULTIFOCAL PNA Diagnosis Discharge Diagnosis (1) Multifocal pneumonia: Status: Acute Code(s): J18.9 - Pneumonia, unspecified organism (2) Acute hyponatremia: Status: Acute Code(s): E87.1 - Hypo-osmolality and hyponatremia (3) Diarrhea: Status: Acute Code(s): R19.7 - Diarrhea, unspecified (4) DAVID (acute kidney injury): Status: Acute Code(s): N17.9 - Acute kidney failure, unspecified Plan #Bilateral pneumonia * Likely superimposed on recent viral illness. Currently on room air but feels very weak and tired. * On ceftriaxone and azithromycin. * Breathing treatments bronchodilators. Urine for strep and Legionella neg ative. COVID both PCR and antigen test negative. Flu test negative * titrate oxygen if needed to maintain sats >90% * feels better today * #DAVID: resovled. Cr is down to 0.57 #Hyponatremia:resolved. Sodium is 138 today. 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 Also on Plavix. Target INR is between 2 and 3. INR is therapeutic #Hypokalemia: Potassium is 3.4 this morning. Will replace and trend. #Hypertension: IV hydralazine as needed. Valsartan on hold due to DAVID. #Hyperlipidemia: On statin #Type 2 diabetes mellitus with hyperglycemia: Insulin sliding scale. Checks ACHS. All meds held on admission. #GERD: PPI #DONAVAN: On CPAP nightly. #Depression: On escitalopram and bupropion #DVT prophylaxis: On Coumadin. Monitor INR with target INR of 2-3. Medications at Discharge Home Medications metformin 500 mg tablet 1,000 mg PO BID diabetes 02/28/14 atorvastatin 40 mg tablet 80 mg PO DAILY cholesterol 11/26/19 clopidogrel 75 mg tablet 75 mg PO DAILY 12/14/19 warfarin 5 mg tablet 7 mg PO DAILY DVT 12/14/19 biotin 5,000 mcg disintegrating tablet 10,000 mcg PO DAILY 04/03/20 pantoprazole 40 mg tablet,delayed release 40 mg PO DAILY 04/03/20 doxepin 10 mg capsule 10 mg PO PRN PRN Sleep 12/14/20 escitalopram oxalate 20 mg tablet (Lexapro) 20 mg PO DAILY 12/14/20 bupropion HCl 150 mg tablet,12 hr sustained-release 150 mg PO BID 07/05/22 valsartan 160 mg tablet 160 mg PO DAILY 07/05/22 sennosides 8.6 mg-docusate sodium 50 mg tablet (Senexon-S) 1 tab PO BID PRN C onstipation 11/25/22 dapagliflozin propanediol 10 mg tablet (Farxiga) 10 mg PO DAILY 05/15/23 pioglitazone 30 mg tablet 30 mg PO DAILY Diabetes 05/15/23 levofloxacin 750 mg tablet 750 mg PO DAILY #5 tabs 05/17/23 Hospital Course Operations None Procedures None Summary of Care Provided Minutes Spent on Discharge: 47 Hospital Course: Patient is a 52-year-old female with an extensive past medical history as outlined was admitted through the ED on 05/15/2023 with a complaint of sinus congestion which had been going on for about a week. She had associated intermittent chills and diaphoresis as well as dizziness. She had also had recent onset of diarrhea for 2 to 3 days prior to admission with associated increased urinary frequency and incontinence. She had been placed on a course of prednisone by her PCP and COVID, influenza and RSV testing on outpatient basis have been negative. Chest x-ray showed no acute cardiopulmonary findings and CT of the chest abdomen and pelvis showed bilateral lower lobe airspace disease suggestive of multifocal pneumonia. She was admitted and managed for community-acquired pneumonia likely a result of a postviral infection. She was started on IV Rocephin and azithromycin. She was hydrated with fluids. Patient gradually felt better and his symptoms resolved. She was able to ambulate around and said her weakness had improved significantly. COVID test and respiratory panel testing was negative. Urine for strep and Legionella was negative. Stool for C. difficile and enteric panel were all negative. She was discharged home on 05/17/2023 on p.o. Levaquin for 5-day course. She is to follow-up with her primary care doctor within 1 to 2 weeks. Patient seen and examined prior to discharge. She felt well and had no active complaints. She had an uneventful night. Review of systems otherwise negative. Labs and vitals reviewed. Home medication reviewed and reconciled. Physical Exam Const alert, oriented x3 and no apparent distress Constitutional Narrative: looks much better General Appearance: cooperative and comfortable HEENT normocephalic, head/scalp atraumatic and hearing grossly normal bilaterally Mouth: oral and palatal mucosa normal Eyes PERRL and EOMs intact bilaterally Neck no lymphadenopathy and supple Lymph Lymphatic: no lymphadenopathy noted and no lymphedema noted Resp normal respiratory effort, normal air movement and clear to auscultation bilaterally Cardio regular rate, regular rhythm, S1 normal heart sound, S2 normal heart sound and no murmurs GI normal to inspection, nondistended, normoactive bowel sounds, soft to palpation, non-tender and non-distended Extremity normal capillary refill, no clubbing, cyanosis or edema and no calf tenderness General Extremity: no tenderness to palpation of joints or extremities Skin no rashes or lesions noted General Skin Exam: no breakdown Neuro oriented x3, CN's II-XII intact bilaterally, moves all extremities, no focal motor deficits, no sensory deficits noted and deep tendon reflexes 2+ bilaterally Sensorium / Orientation: awake and alert Motor Exam: strength 5/5 throughout and general weakness Psych thought process normal and cooperative Appearance: appropriate Weight / BMI Weight Weight: 186 lb 15.232 oz Body Mass Index (BMI) 29.3 ABG / Lab / Microbiology Data 05/17/23 06:10 05/17/23 06:10 Laboratory: Laboratory Results - last 24 hr 05/16/23 13:35: PT 24.9 H, INR 2.2 05/16/23 16:17: POC Glucose 279 H 05/16/23 21:24: POC Glucose 234 H 05/17/23 05:36: POC Glucose 293 H 05/17/23 06:10: WBC 12.3 H, RBC 4.46, Hgb 13.7, Hct 40.9, MCV 91.7, MCH 30.7, MCHC 33.5, RDW Std Deviation 47.6 H, RDW Coeff of Edvin 14.0, Plt Count 389, MPV 9.8, Immature Gran % (Auto) 1.900 H, Neut % (Auto) 49.5, Lymph % (Auto) 39.5, [place] % (Auto) 6.7, Eos % (Auto) 1.3, Baso % (Auto) 1.1 H, Absolute Neuts (auto) 6.1, Absolute Lymphs (auto) 4.84 H, Nucleated RBC % 0, Sodium 138, Potassium 3.7, Chloride 108 H, Carbon Dioxide 26.0, Anion Gap 4 L, BUN 15, Creatinine 0.68, Estim Creat Clear Calc 90.60, Est GFR (MDRD) Af Amer 115, Est GFR (MDRD) Non-Af 95, BUN/Creatinine Ratio 21.9 H, Glucose 286 H, Calcium 8.5 05/17/23 11:22: POC Glucose 178 H Microbiology: Microbiology 05/15/23 17:00 Stool Stool Lactoferrin - Final 05/15/23 17:00 Stool Enteric Bacteriology - Final 05/15/23 17:00 Stool C. difficile GDH Antigen & Toxins - Final 05/15/23 17:00 Stool C. difficile DNA Amplification - Final 05/15/23 05:55 Mucosa - Nose Coronavirus COVID-19 PCR - Final 05/15/23 05:55 Mucosa - Nose Respiratory Panel (PCR) - Final 05/15/23 04:50 Urine, Random Legionella Antigen - Final 05/15/23 04:50 Urine, Random Streptococcus pneumoniae Antigen (M - Final 05/15/23 01:05 Nasal Secretion SARS-CoV-2 & FLU Antigen (Rapid) - Final D/C Instructions Discharge Diet: Low fat / Low cholesterol Discharge Activity: Return to Normal Activity Weight Bearing Status: Weight bearing as tolerated Call your doctor if you observe: Fever of 101 or Higher, Shortness of breath, Dizziness, Swelling in the ankles and Chest pain Meaningful Use Info Meaningful Use Diagnoses (Choose all that apply): None applicable Discharge Plan Admission Admit Date/Time: 05/15/23 03:06 Primary Reason for Your Visit: pneumonia Attending Provider: Shavon Kingsley Primary Care Provider: Shashank Tai Chi Consulting Providers: Leola Bowman Instructions Patient Instructions: ED Pneumonia (Adult) Discharge Orders/Prescriptions Prescriptions: New levofloxacin 750 mg tablet 750 mg PO DAILY Qty: 5 0RF Continued metformin 500 MG tablet 1,000 mg PO BID Patient Comments: atorvastatin 40 MG tablet 80 mg PO DAILY clopidogrel 75 MG tablet 75 mg PO DAILY warfarin 5 MG tablet 7 mg PO DAILY pantoprazole 40 MG tablet 40 mg PO DAILY biotin 5,000 MCG tablet,disintegrating 10,000 mcg PO DAILY sennosides-docusate sodium [Senexon-S] 8.6-50 mg tablet 1 tab PO BID PRN (Reason: Constipation) doxepin 10 mg capsule 10 mg PO PRN PRN (Reason: Sleep) escitalopram oxalate [Lexapro] 20 mg tablet 20 mg PO DAILY Patient Comments: TAKE 1 TABLET BY MOUTH EVERY DAY bupropion HCl 150 mg tablet sustained-release 12 hr 150 mg PO BID Patient Comments: TAKE 1 TABLET ORALLY TWICE PER DAY FOR 90 DAYS valsartan 160 mg tablet 160 mg PO DAILY Patient Comments: TAKE 1 TABLET BY MOUTH EVERY DAY Farxiga 10 mg tablet 10 mg PO DAILY pioglitazone 30 mg tablet 30 mg PO DAILY Patient Comments: TAKE 1 TABLET ORALLY ONCE PER DAY FOR 30 DAYS Referrals / Follow Up: Shashank Tai Chi, MD [Primary Care Provider] - Within 1 Week Disposition Disposition (needs filled in before D/C Order can be placed): Home, Self Care Charges/Coding Visit Charges Inpatient E&M: 71438 Disch Hosp >30min
== END 2023-05-17 14:36 | disposition home or self-care (01) | DRG 194 ==
LOC: ED 03:05 → MS3 07:05
PROVIDERS: Admitting Provider Family Medicine; Emergency Provider Emergency Medicine; PCP Family Medicine Geriatric Medicine; Visit Provider Student in an Organized Health Care Education/Training Program
DX: J15.9 Unspecified bacterial pneumonia (principal); N17.9 Acute kidney failure, unspecified; E11.65 Type 2 diabetes mellitus with hyperglycemia; E87.1 Hypo-osmolality and hyponatremia; I10 Essential (primary) hypertension; F32.A Depression, unspecified; E78.5 Hyperlipidemia, unspecified; G47.33 Obstructive sleep apnea (adult) (pediatric); F17.210 Nicotine dependence, cigarettes, uncomplicated; K21.9 Gastro-esophageal reflux disease without esophagitis; E87.6 Hypokalemia; F41.9 Anxiety disorder, unspecified; R19.7 Diarrhea, unspecified; Z90.5 Acquired absence of kidney; Z79.01 Long term (current) use of anticoagulants; Z79.02 Long term (current) use of antithrombotics/antiplatelets; Z79.84 Long term (current) use of oral hypoglycemic drugs; Z79.899 Other long term (current) drug therapy; Z86.718 Personal history of other venous thrombosis and embolism
CPT/HCPCS: 36415; 71046; 71250; 74176; 80048; 80053; 81001; 82550; 82962; 83630; 83735; 84100; 84145; 85025; 85610; 87428; 87449; 87493; 87506; 87633; 87635; 87641; 93005; 94668; 96361; 96365; 96366; 96367; 99221; 99252; 99284; J7030; J7050; A4216; G0378; G0463

== ENCOUNTER → 2023-05-20 | Outpatient (CLI) | payer BC, SELFPAY ==
[2023-05-20 15:54] LABS: Absolute Lymphocyte Count 3.29 X10^3/uL (0.83-4.51); Absolute Neutrophil Count 7.5 X10^3/uL (2.0-7.7); Basophil# 0.17 X10^3/uL; Basophil% 1.4 % (0-1); Eosinophil# 0.19 X10^3/uL; Eosinophils% 1.5 % (0-5); Hematocrit 44.9 % (37-47); Hemoglobin 14.9 g/dL (12.0-15.0); Lymphocyte # 3.29 X10^3/ul (0.83-4.51); Lymphocyte % 26.7 % (19-41); Mean Corp Hgb Conc 33.2 g/dL (32-36); Mean Corpuscular Hgb 30.8 pg (27.0-32.0); Mean Corpuscular Volume 92.8 fL (81-99); Mean Platelet Vol. 10.4 fl (6.2-12.0); Monocyte# 1.02 X10^3/uL; Monocyte% 8.3 % (0-10); NRBC Flagged by Analyzer 0 % (0-5); Neutrophil # 7.45 X10^3/uL (2.7-7.7); Neutrophil % 60.4 % (47-70); Platelet Count 432 K/mm3 (150-450); RBC Distribution Width CV 14.4 % (11.6-14.6); RBC Distribution Width SD 48.9 fl (35.1-43.9); Red Blood Count 4.84 M/mm3 (4.2-5.4); White Blood Count 12.3 K/mm3 (4.4-11.0)
[2023-05-20 16:17] LABS: ALB/GLOB Ratio 1.2 RATIO (0.9-2.4); AST(SGOT) 21 U/L (15-37); Alanine Aminotransfer ALT/SGPT 30 U/L (13-56); Albumin, Serum 3.7 g/dL (3.2-5.0); Alkaline Phosphatase 86 U/L (45-117); Anion Gap 7 (5-15); BUN 25 mg/dL (7-18); BUN/Creat Ratio 32.1 RATIO (10-20); Calcium,Total 9.3 mg/dL (8.5-10.1); Chloride 105 mmol/L (98-107); Creatinine, Serum 0.78 mg/dL (0.55-1.02); EST Glomerular Filtration Rate 82 mL/min (>60); Est Glom Filt Rate - Afr Amer 100 mL/min (>60); Globulin 3.2 g/dL (2.2-4.2); Glucose 197 mg/dL (74-106); Potassium 3.7 mmol/L (3.5-5.1); Protein, Total 6.9 g/dL (6.4-8.2); Sodium Level 139 mmol/L (136-145); Thyroid Stim Hormone (TSH) 1.94 uIU/mL (0.358-3.74)
== END | disposition home or self-care (01) ==
LOC: POLAB3 13:57
PROVIDERS: PCP Family Medicine Geriatric Medicine; Visit Provider Family Medicine Geriatric Medicine
DX: E11.65 Type 2 diabetes mellitus with hyperglycemia (principal); I10 Essential (primary) hypertension
CPT/HCPCS: 36415; 80053; 84443; 85025

== ENCOUNTER 2023-05-31 22:15 | Emergency (ER) | payer BC, SELFPAY ==
[2023-05-31 22:16] VITALS: BP 122/75; PULSE 92; RESP 16; TEMP 36.1; O2SAT 91; BMI 29.6
[2023-05-31 22:20] VITALS: BP 122/75; PULSE 90; RESP 18; TEMP 36.1; O2SAT 90
--- NOTE | 2023-05-31 22:28 | ED.VIS.DYS ---
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 Bruising Chronic cough Contraceptive management Depression Diabetes mellitus DVT (deep venous thrombosis) Easy bruising Excessive bleeding Gastric reflux History of echocardiogram History of kidney stones Injury of head and neck Leg cramps Leukocytosis Menorrhagia with irregular cycle Migraine headache Sleep apnea Smoker Wears dentures Wears glasses Home Medications metformin 500 mg tablet 1,000 mg PO BID diabetes 02/28/14 [History Last Taken 11/26/19 16:00] atorvastatin 40 mg tablet 80 mg PO DAILY cholesterol 11/26/19 [History Last Taken 11/25/19] clopidogrel 75 mg tablet 75 mg PO DAILY 12/14/19 [History Last Taken 07/05/22] warfarin 5 mg tablet 7 mg PO DAILY DVT 12/14/19 [History Last Taken 07/05/22] biotin 5,000 mcg disintegrating tablet 10,000 mcg PO DAILY 04/03/20 [History Last Taken Unknown] pantoprazole 40 mg tablet,delayed release 40 mg PO DAILY 04/03/20 [History Last Taken 07/09/22] doxepin 10 mg capsule 10 mg PO PRN PRN Sleep 12/14/20 [History Last Taken Unknown] escitalopram oxalate 20 mg tablet (Lexapro) 20 mg PO DAILY 12/14/20 [History Last Taken Unknown] bupropion HCl 150 mg tablet,12 hr sustained-release 150 mg PO BID 07/05/22 [History Last Taken Unknown] valsartan 160 mg tablet 160 mg PO DAILY 07/05/22 [History Last Taken 07/09/22] sennosides 8.6 mg-docusate sodium 50 mg tablet (Senexon-S) 1 tab PO BID PRN Constipation 11/25/22 [History Last Taken Unknown] dapagliflozin propanediol 10 mg tablet (Farxiga) 10 mg PO DAILY 05/15/23 [History Last Taken Unknown] pioglitazone 30 mg tablet 30 mg PO DAILY Diabetes 05/15/23 [History Last Taken Unknown] levofloxacin 750 mg tablet 750 mg PO DAILY #5 tabs 05/17/23 [Rx Last Taken Unknown] Allergy/AdvReac Type Severity Reaction Status Date / Time latex Allergy Mild rash Verified 05/31/23 22:16 Penicillins [PCN] Allergy Hives Verified 05/31/23 22:16 Family History Brother Diabetes Father Diabetes Mother Diabetes Uncle Diabetes Skin cancer Colon cancer Uncle Diabetes Aunt Breast cancer Surgical History H/O lithotripsy H/O tubal ligation History of embolectomy History of esophagogastroduodenoscopy (EGD) Hx of cholecystectomy Hx of partial nephrectomy Status post endometrial ablation Social History (Updated 05/15/23 @ 03:[address] Leola Bowman MD) household members: family current occupational status: employed current occupation: [employer] history of recent travel: No sexually active: No Smoking Status: Current every day smoker tobacco type: cigarettes alcohol intake: never substance use type: does not use what type of physical activity do you participate in: other seatbelt use: always do you feel safe at home: Yes additional social history: single EXAM Physical Exam Const Vital Signs: 05/31/23 22:16 05/31/23 22:20 05/31/23 22:43 Temperature 96.9 F L 96.9 F L Temperature Source Temporal Temporal Pulse Rate 92 90 Respiratory Rate 16 18 Respiratory Effort Blood Pressure 122/75 H 122/75 H Blood Pressure Mean 90 90 Pulse Ox 91 90 Oxygen Delivery Method Room Air 05/31/23 22:43 05/31/23 23:20 05/31/23 23:20 Temperature 98 F Temperature Source Temporal Pulse Rate 68 Respiratory Rate 20 H Respiratory Effort Normal Non-Labored Blood Pressure 134/76 H Blood Pressure Mean 95 Pulse Ox 94 Oxygen Delivery Method Room Air Room Air Room Air 06/01/23 00:16 Temperature 97.6 F L Temperature Source Temporal Pulse Rate 72 Respiratory Rate 20 H Respiratory Effort Blood Pressure 130/80 H Blood Pressure Mean 96 Pulse Ox 94 Oxygen Delivery Method Room Air MDM MDM MDM Narrative Medical decision making narrative: HISTORY OF PRESENT ILLNESS: 53-year-old female presents with chief complaint of shortness of breath, weakness feeling overall ill. States she is been ill since before Arabella approximately 6 days ago. States she was recently admitted for pneumonia but never really got better. She further states REVIEW OF SYSTEMS: Pertinent positives: Shortness of breath Pertinent negatives: [] PHYSICAL EXAM: Nursing triage notes reviewed, Vital signs reviewed Constitutional: please see [facility] HENT: MMM Eyes: Pupils equal round and reactive to light, Extraocular muscles intact Neck: No stridor, no JVD, full neck ROM Lungs: Clear to auscultation, No wheezing or rales. No increased work of breathing, no conversational dyspnea, no accessory muscle use, no nasal flaring. No respiratory distress noted Heart: Regular rate and rhythm, No murmurs, No rubs and No gallops, 2+ distal pulses (radial, femoral, posterior tibial) in all extremities Abdomen: Soft, there is no tenderness, rigidity, rebound or guarding, no obvious peritoneal signs, no palpable pulsatile abdominal masses, no auscultated abdominal bruit : No CVAT Extremities: No edema Neuro: No focal neurological deficits, cranial nerves II through XII intact, 5/5 strength in all extremities. Intact sensation to light touch in all extremities, 2+ reflexes bilateral patella tendons. Normal gait. No ataxia. Skin: No rash or lesions noted MEDICAL DECISION MAKING: Chief Complaint: Shortness of breath External records reviewed: Inpatient records reviewed: Admitted on 05/15/2023 through 05/17/2023 for multifocal pneumonia, hyponatremia, diarrhea and acute kidney injury Factors affecting care: DVT, aortic thromboembolism, on Coumadin and Plavix, GERD, type 2 diabetes, hypothyroidism, hyperlipidemia, hypertension Social determinants of health: none History obtained from others: The patient's son Consults: none [facility] Narrative: Patient was hemodynamically stable, afebrile, nontoxic-appearing. Lungs were clear I considered the following differential diagnosis: Pneumonia, COVID, flu, RSV, heart failure, arrhythmia, anemia ALL IMAGES (IF OBTAINED) HAVE BEEN PERSONALLY REVIEWED AND INTERPRETED BY MYSELF. EKG with normal sinus rhythm, normal axis, normal intervals, no STEMI CBC without leukocytosis, severe anemia, no thrombocytopenia. INR 2.1 BMP without evidence of significant electrolyte abnormalities, no anion gap, no acute kidney injury. High-sensitivity troponin is negative, no evidence of myocardial ischemia BNP within normal limits suggestive of no heart failure RSV, COVID and flu positive for RSV I have personally reviewed the patient's chest x-ray. Chest x-ray is unremarkable for pulmonary edema, pneumothorax, pneumonia or focal cardiopulmonary abnormality. The synthesis of the patient's history, physical exam, labs, images suggest RSV. Patient was ambulated and maintain oxygen saturation of 91%. I discussed with the patient. Discussed admission for oxygen monitoring possible etiology however the patient stated she like to go home get home pulse ox and return if symptoms worsen The patient and/or family, caregivers express understanding. The patient and/or family, caregivers agrees with the plan. Shared decision making: I will have a discussion with the patient and or visitors regarding risk/benefits of further testing or admission. They will be made aware of of the risk/benefits inherent in this decision they will be given the opportunity to voice understanding. Total critical care time today provided was at least 0 minutes. This excludes separately billable procedures. Critical care time (if documented) is secondary to the patient having high probability of clinically significant/life threatening deterioration in the patient's condition which required my urgent intervention. Impression: 1. Dyspnea 2. RSV Dispo: Discharge Lab Data Labs: Laboratory Results - last 24 hr 05/31/23 23:28 WBC 5.4 RBC 4.65 Hgb 14.3 Hct 43.8 MCV 94.2 MCH 30.8 MCHC 32.6 RDW Std Deviation 49.4 H RDW Coeff of Edvin 14.5 Plt Count 269 MPV 9.6 Immature Gran % (Auto) 0.400 Neut % (Auto) 59.3 Lymph % (Auto) 26.0 [place] % (Auto) 11.4 H Eos % (Auto) 1.8 Baso % (Auto) 1.1 H Absolute Neuts (auto) 3.2 Absolute Lymphs (auto) 1.41 Nucleated RBC % 0 PT 23.7 H INR 2.1 Sodium 139 Potassium 3.7 Chloride 107 Carbon Dioxide 31.0 Anion Gap 1 L BUN 11 Creatinine 0.74 Estim Creat Clear Calc 82.31 Est GFR (MDRD) Af Amer 105 Est GFR (MDRD) Non-Af 87 BUN/Creatinine Ratio 14.8 Glucose 179 H Calcium 9.6 Troponin I High Sens 6 B-Natriuretic Peptide 42.2 Radiography Diagnostic Testing: Clinical Impression(s) from Imaging Studies Chest X-Ray 05/31/23 23:40 IMPRESSION: No evidence of acute cardiopulmonary disease. Electronically Signed: Scott Man DO at 0:08 EST , Discharge Plan Triage Chief Complaint: Shortness of Breath ED Provider: Abrahan Herrera Dx/Rx/DC Orders Clinical Impression: RSV (respiratory syncytial virus infection) Instructions: RSV (Respiratory Syncytial Virus) Prescriptions: No Action metformin 500 MG tablet 1,000 mg PO BID Patient Comments: atorvastatin 40 MG tablet 80 mg PO DAILY clopidogrel 75 MG tablet 75 mg PO DAILY warfarin 5 MG tablet 7 mg PO DAILY pantoprazole 40 MG tablet 40 mg PO DAILY biotin 5,000 MCG tablet,disintegrating 10,000 mcg PO DAILY sennosides-docusate sodium [Senexon-S] 8.6-50 mg tablet 1 tab PO BID PRN (Reason: Constipation) doxepin 10 mg capsule 10 mg PO PRN PRN (Reason: Sleep) escitalopram oxalate [Lexapro] 20 mg tablet 20 mg PO DAILY Patient Comments: TAKE 1 TABLET BY MOUTH EVERY DAY bupropion HCl 150 mg tablet sustained-release 12 hr 150 mg PO BID Patient Comments: TAKE 1 TABLET ORALLY TWICE PER DAY FOR 90 DAYS valsartan 160 mg tablet 160 mg PO DAILY Patient Comments: TAKE 1 TABLET BY MOUTH EVERY DAY Farxiga 10 mg tablet 10 mg PO DAILY pioglitazone 30 mg tablet 30 mg PO DAILY Patient Comments: TAKE 1 TABLET ORALLY ONCE PER DAY FOR 30 DAYS levofloxacin 750 mg tablet 750 mg PO DAILY Qty: 5 0RF Stand Alone Forms: ED Work / School Excuse Primary Care Provider: Shashank Tai Chi Referrals: Shashank Tai Chi, MD [Primary Care Provider] - Activity Restrictions/Additional Instructions: Thank you for trusting us with your care today! Please take Tylenol (2 pills, 650 mg), ibuprofen (2 pills, 400 mg) every 6 hours as needed for pain and fever control. Please drink plenty of fluids. Please return to the emergency department if your symptoms change or worsen. Specifically develop blue discoloration of your skin, worsening shortness of breath, if you notice with your home pulse ox the oxygen levels below 88%. Please follow with your primary care physician for further outpatient evaluation and management. Disposition Disposition: Home, Self Care
[2023-05-31 23:20] VITALS: BP 134/76; PULSE 68; RESP 20; TEMP 36.6; O2SAT 94
[2023-05-31 23:35] LABS: Absolute Lymphocyte Count 1.41 X10^3/uL (0.83-4.51); Absolute Neutrophil Count 3.2 X10^3/uL (2.0-7.7); Basophil# 0.06 X10^3/uL; Basophil% 1.1 % (0-1); Eosinophils% 1.8 % (0-5); Hematocrit 43.8 % (37-47); Hemoglobin 14.3 g/dL (12.0-15.0); Lymphocyte # 1.41 X10^3/ul (0.83-4.51); Mean Corp Hgb Conc 32.6 g/dL (32-36); Mean Corpuscular Hgb 30.8 pg (27.0-32.0); Mean Corpuscular Volume 94.2 fL (81-99); Mean Platelet Vol. 9.6 fl (6.2-12.0); Monocyte# 0.62 X10^3/uL; Monocyte% 11.4 % (0-10); NRBC Flagged by Analyzer 0 % (0-5); Neutrophil # 3.21 X10^3/uL (2.7-7.7); Neutrophil % 59.3 % (47-70); Platelet Count 269 K/mm3 (150-450); RBC Distribution Width CV 14.5 % (11.6-14.6); RBC Distribution Width SD 49.4 fl (35.1-43.9); Red Blood Count 4.65 M/mm3 (4.2-5.4); White Blood Count 5.4 K/mm3 (4.4-11.0)
--- NOTE | 2023-05-31 23:40 | RAD_ITS ---
INDICATION: SOB EXAMINATION/TECHNIQUE: X-RAY - XR Chest 2 Views COMPARISON: 05/15/2023. FINDINGS: LINES/DEVICES: None. LUNGS: No consolidation or evidence of an effusion. No evidence of edema or a pneumothorax. MEDIASTINUM AND CARDIOVASCULAR STRUCTURES: Cardiac silhouette is normal in size and contour. Mediastinum is unremarkable. BONES AND SOFT TISSUES: No acute abnormality. RAD/Chest PA and Lateral IMPRESSION: No evidence of acute cardiopulmonary disease. Electronically Signed: Scott Man DO at 0:08 EST ,
[2023-05-31 23:43] LABS: International Normalized Ratio 2.1; Prothrombin Time (Protime)PT. 23.7 SECONDS (11.7-14.9)
[2023-05-31 23:55] LABS: Anion Gap 1 (5-15); BUN 11 mg/dL (7-18); BUN/Creat Ratio 14.8 RATIO (10-20); Calcium,Total 9.6 mg/dL (8.5-10.1); Chloride 107 mmol/L (98-107); Creatinine, Serum 0.74 mg/dL (0.55-1.02); EST Glomerular Filtration Rate 87 mL/min (>60); Est Glom Filt Rate - Afr Amer 105 mL/min (>60); Estimated Creatinine Clearance 82.31 ml/min; Glucose 179 mg/dL (74-106); Potassium 3.7 mmol/L (3.5-5.1); Sodium Level 139 mmol/L (136-145); Troponin-I HS 6 pg/mL (3.0-54.0)
[2023-05-31 23:56] LABS: BNP,B-Type NATRIURETIC PEPTIDE 42.2 pg/mL (0-100)
[2023-06-01 00:07] VITALS: O2SAT 93
[2023-06-01 00:16] VITALS: BP 130/80; PULSE 72; RESP 20; TEMP 36.4; O2SAT 94
--- OUTSIDE RECORDS SUMMARY | 2023-06-01 00:20 | XMS RPT_ITS | CCD ---
Author Name Unknown Address [address] [place] [address] Organization [facility] Care Team Providers Care Deli Manager Name Role Phone SUHA RUSSELL CNP Admitting Unavailable SUHA RUSSELL CNP Attending Unavailable SUHA RUSSELL CNP Primary Care Unavailable NO, DOCTOR ON Consulting Unavailable SUHA RUSSELL CNP Admitting Unavailable SUHA RUSSELL CNP Attending Unavailable SUHA RUSSELL CNP Primary Care Unavailable NO, DOCTOR ON Consulting Unavailable SUHA RUSSELL CNP Admitting Unavailable SUHA RUSSELL CNP Attending Unavailable SUHA RUSSELL CNP Primary Care Unavailable NO, DOCTOR ON Consulting Unavailable SUHA RUSSELL CNP Admitting Unavailable SUHA RUSSELL CNP Attending Unavailable SUHA RUSSELL CNP Primary Care Unavailable NO, DOCTOR ON Consulting Unavailable SUHA RUSSELL CNP Admitting Unavailable SUHA RUSSELL CNP Attending Unavailable NO, DOCTOR ON Referring Unavailable SUHA RUSSELL CNP Primary Care Unavailable SUHA RUSSELL CNP Consulting Unavailable PROVIDER, UNKNOWN Consulting Unavailable PROVIDER, UNKNOWN Consulting Unavailable SUHA RUSSELL CNP Admitting Unavailable SUHA RUSSELL CNP Attending Unavailable SUHA RUSSELL CNP Primary Care Unavailable NO, DOCTOR ON Consulting Unavailable ALIYA CUNNINGHAM C Admitting Unavailable CUNNINGHAM ALIYA C Attending Unavailable CUNNINGHAM ALIYA C Primary Care Unavailable NO, DOCTOR ON Consulting Unavailable NO, DOCTOR ON Referring Unavailable ESTHER NAVA MD Admitting Unavailab ESTHER Man MD Attending Unavailab SUHA Herrera CNP Referring Unavailable ESTHER NAVA MD Primary Care Unavailab le SUHA RUSSELL CNP Consulting Unavailable PROVIDER, UNKNOWN Consulting Unavailable PROVIDER, UNKNOWN Consulting Unavailable ERMIAS FUNK Referring Unavailable Shashank Tai Chi Primary Care Provider [phone] Todd Tabor MD Unavailable Shashank Tai Chi Primary Care Provider Todd Tabor MD Allergies Allergy Classification Reported Allergen(s) Allergy Type Date of Onset Reaction(s) Facility (1 source) Penicillins Drug allergy (disorder) [facility] Repository (2 sources) Penicillins Drug Allergy 03-14-2014 Rash, Unknown [facility] (4 sources) Penicillins Drug Allergy 03-14-2014 Rash, Unknown [facility] Medications Completed/Discontinued Medications Medication Drug Class(es) Dates Sig (Normalized) Sig (Original) acetaminophen 325 mg oral tablet (3 sources) Start: 12-08-2019 take 2 tablets by mouth every six hours as needed acetaminophen (TYLENOL) 325 mg tablet Take 2 tablets by mouth every 6 hours as needed. 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 (11 sources) Thrombosis of aorta; Translations: [Embolism and thrombosis of unspecified parts of aorta] Onset: 12-04-2019 Chronic Diabetes mellitus with complications (3 sources) Type 2 diabetes mellitus; Translations: [DM (diabetes mellitus) type II uncontrolled, periph vascular disorder] 05-29-2021 Chronic Diabetes mellitus with complications (2 sources) Type 2 diabetes mellitus with diabetic neuropathy, unspecified; Translations: [Type 2 diabetes mellitus with diabetic neuropathy, unspecified] Onset: 12-08-2018 Diabetes mellitus without complication (3 sources) Diabetes mellitus; Translations: [Type 2 diabetes mellitus without complications] 12-07-2019 Chronic Essential hypertension (3 sources) Essential hypertension; Translations: [Essential (primary) hypertension] 12-08-2019 Chronic Mood disorders (3 sources) Depressive disorder; Translations: [Depression] 12-08-2019 Chronic Nutritional deficiencies (3 sources) Moderate protein energy malnutrition; Translations: [Moderate protein-calorie malnutrition] Onset: 11-30-2019 12-07-2019 Chronic Other circulatory disease (3 sources) Vasculitis; Translations: [Arteritis, unspecified] Onset: 11-29-2019 11-29-2019 Chronic Peripheral and visceral atherosclerosis (4 sources) Intermittent claudication of bilateral lower limbs co-occurrent and due to atherosclerosis; Translations: [Atherosclerosis of sokaogon arteries of extremities with intermittent claudication, bilateral legs] Onset: 09-18-2020 09-18-2020 Chronic Spondylosis; intervertebral disc disorders; other back problems (6 sources) Neck pain; Translations: [Cervicalgia] Onset: 03-14-2014 03-14-2014 Episodic Substance-related disorders (3 sources) Ex-tobacco user; Translations: [Nicotine dependence, unspecified, in remission] Onset: 12-04-2019 12-08-2019 Chronic Past or Other Problems Problem Classification Problem Date Documented Da te Episodic/Chronic Other aftercare (4 sources) Anticoagulant effect; Translations: [Encounter for therapeutic drug level monitoring] Onset: 12-06-2019 12-08-2019 Episodic Other bone disease and musculoskeletal deformities (3 sources) Lytic lesion of bone on X-ray; Translations: [Disorder of bone, unspecified] Onset: 03-14-2014 03-14-2014 Episodic Other nervous system disorders (3 sources) Postoperative pain ; Translations: [Other acute postprocedural pain] Onset: 12-04-2019 12-06-2019 Episodic Residual codes; unclassified (3 sources) Tobacco use and exposure - finding; Translations: [Tobacco use] Onset: 03-14-2014 03-14-2014 Episodic Results Test Name Value Interpretation Reference Range Facil it Vital Signs Date Time Vital Sign Value Performing Clinician Faci lit 12-10-2021 12:50-0400 Diastolic blood pressure 66 mm[Hg] Merrill De Luna MD Work Phone: [facility] 12-10-2021 12:50-0400 Heart rate 66 /min Merrill De Luna MD Work Phone: [facility] 12-10-2021 12:50-0400 Systolic blood pressure 119 mm[Hg] Merrill De Luna MD Work Phone: [facility] Encounters Encounter Date Encounter Type Care Provider Facility Start: 01-09-2023 Telephone encounter Merrill izaguirre MD Work Phone: [facility] Dept Procedures Date Procedure Procedure Detail Performing Clinician Start: 04-05-2019 Mammography Mrerill De Luna MD Work Phone: Plan of Treatment Date Care Activity Detail Author Start: 04-05-2024 HPV TESTING HPV TESTING [facility] Start: 04-05-2024 PAP TESTING PAP TESTING [facility] Start: 01-31-2023 Influenza vaccination INFLUENZA (#1) [facility] Start: 12-10-2022 BP CONTROLLED (<130/80) BP CONTROLLED (<130/80) [facility] Start: 01-31-2022 Influenza vaccination [facility] Start: 09-18-2021 BP CONTROLLED (<130/80) BP CONTROLLED (<130/80) [facility] Start: 11-28-2020 3 comp foot exam completed DIABETIC FOOT EXAM [facility] Start: 2020 SHINGRIX VACCINE (1 of 2) SHINGRIX VACCINE (1 of 2) [facility] Start: 04-05-2020 Mammography MAMMOGRAM [facility] Start: 03-02-2020 Hemoglobin A1c/Hemoglobin.total in Blood HBA1C [facility] Start: 2015 COLOGUARD (FIT-DNA) COLOGUARD (FIT-DNA) [facility] Start: 2015 Colonoscopy COLONOSCOPY [facility] Start: 2015 COLORECTAL CANCER SCREENING COLORECTAL CANCER SCREENING [facility] Start: [address] COLONOGRAPHY [facility] Start: 2015 FECAL OCCULT BLOOD FECAL OCCULT BLOOD [facility] Start: 2015 SIGMOIDOSCOPY SIGMOIDOSCOPY [facility] Start: 1989 Urine microalbumin profile DTAP,TDAP,TD (1 - Tdap) [facility] Start: 1988 ANNUAL PCP TEAM CHRONIC DISEASE VISIT ANNUAL PCP TEAM CHRONIC DISEASE VISIT [facility] Start: 1988 BP CONTROLLED (<130/80) BP CONTROLLED (<130/80) [facility] Start: 1988 Hepatitis B surface antibody level LDL CHOLESTEROL [facility] Start: 1988 HIV SCREENING HIV SCREENING [facility] Start: 1986 ONE PNEUMOVAX PRIOR TO AGE 65 ONE PNEUMOVAX PRIOR TO AGE 65 [facility] Start: 1980 Hepatitis B screening URINE ALBUMIN:CREATININE RATIO [facility] Start: 1980 Hepatitis C antibody, confirmatory test DILATED RETINAL EXAM [facility] Start: 1976 PNEUMOCOCCAL (1 - PCV) PNEUMOCOCCAL (1 - PCV) [facility] Start: 1975 COVID-19 VACCINE (1) COVID-19 VACCINE (1) [facility] Start: 1970 COVID-19 VACCINE (#1) COVID-19 VACCINE (#1) [facility] End: 08-31-2022 PVR ANK/[place] PVR AN[place] Vascular Lab Routine Aortic mural thrombus (HCC) 1 Occurrences starting 08/31/2021 until 08/31/2022 [facility] Work Phone: Payers Date Payer Category Payer Unknown [employer] PPO [id number] 2021-Present [phone] [address] [place] [address] PPO [id number] 2021 Unknown [employer] PPO [id number] 2021-Present [phone] [address] [place] [address] PPO [id number] 2020 Unknown [employer] PREF ERRED [facility]WORK [facility] PREFERRED [id number] 2020-Present [phone] [address] [address] [place] [address] Indemnity [id number] 2016 Unknown [id number] 1970 Unknown [id number] 1 1970 Unknown [id number] 1 1970 Unknown [id number] 1 1970 Unknown [id number] 1 1970 Unknown [id number] 1 1970 Unknown [id number] 1 1970 Unknown [id number] 1 1970 Unknown [id number] 1 1970 Unknown [id number] 4 Social History Date Type Detail Facility Start: 12-04-2019 Tobacco smoking status NHIS Ex-smoker [facility] Work Phone: Start: 12-04-2019 Tobacco use and exposure Smokeless tobacco non-user [facility] Work Phone: Start: 09-18-2020 End: 12-10-2021 Alcohol intake Ex-drinker (finding) [facility] Start: 04-05-2019 End: 11-30-2019 History SDOH Alcohol Frequency 1 [facility] Start: 11-30-2019 History SDOH Financial 5 [facility] Start: 11-30-2019 History SDOH Transport Non-Med 2 [facility] Start: 12-04-2019 Tobacco Comment quit 1 month ago [facility] Start: 1970 Sex Assigned At Not on file [facility] Start: 1970 Sex Assigned At Female [facility] History of tobacco use Current smoker [facility] Work Phone: Start: 04-05-2019 End: 06-30-2022 History of Social function [facility] Work Phone: Start: 04-05-2019 End: 06-30-2022 Alcohol Use Disorder Identification Test - Consumption [AUDIT-C] [facility] Work Phone: How often to you hav e a drink containing alcohol? Never [facility] Work Phone: Average Number of Drinks Not on file [facility] Work Phone: (I/We) worried ronen er (my/our) food would run out before (I/we) got money to buy more. Never true [facility] Work Phone: Start: 11-23-2021 Gender identity Identifies as female gender (finding) [facility] Start: 11-23-2021 Sexual orientation Heterosexual (finding) [facility] Medical Equipment Procedure Code Equipment Code Equipment Origin al Text Equipment Identifier Dates Stent Protege Gp s Exprt 14mm .079in Large Diameter Nitinol 30mm 120cm - [id number] Start: 12-04-2019 Start: 12-08-2019 Note 01-09-2023 Telephone Encounter - Gisele Arriola - 01/09/2023 1:55 PM EDT Note Date & Type Note Facility 01-09-2023 Miscellaneous Notes Formattin g of this note might be different from the original. Ms. Friend called and said she had talked to someone in November about getting a letter from Dr. De Luna that is was ok to have a hysterectomy done. She was wondering if there is anyway to get that letter so it can be sent to her doctor. 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 DATE: 12/04/2019 SURGEON: Merrill De Luna M.D. SURGERY: First order aortic access on the right x2. First order aortic access on the left x1. 5-Turkish sheath on the left, 5-Turkish sheath on the right, 8- Turkish sheath up sized to a 20-Turkish sheath on the right. Mechanical thrombectomy with CATD of aortoiliac segment. Nitish embolectomy of aortoiliac segment from the right groin with a 20-Turkish sheath. Right iliac embolectomy. Left SFA and pop embolectomy with CAT8 with a 3rd order access from the right to the left popliteal. Left lower extremity selective runoff. 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 We had done an aortoiliac thrombectomy as well as a left SFA and popliteal thrombectomy percutaneously. She had stopped smoking for a period of time, but unfortunately is back to smoking. She should still remain on lifelong Coumadin with a goal INR between 2-3. We will recommend they check her LDL yearly to try and keep her goal LDL less than 70. [facility] [place] DEPARTMENT OF VASCULAR SURGERY OUTPATIENT VISIT DATE December 10, 2021 OUTPATIENT VISIT TYPE ESTABLISHED SERVICE DATE: 12/10/2021 SERVICE TIME: 1:10 PM PRIMARY CARE PHYSICIAN: Shashank Tai MD HISTORY OF PRESENT ILLNESS: Ms. Friend is a 51 year old female who presents today for a vascular surgery follow-up visit. PAST MEDICAL HISTORY Diagnosis Date Acid reflux Anxiety Aortic mural thrombus (HCC) Aortic mural thrombus (HCC) A: Mural thrombus at the aortic bifurcation with signs of microemboli to the bilateral toes as well as symptoms of claudication. No wounds, motor sensory intact. 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2/04/2019 Essential hypertension Tobacco use disorder, mild, in early remission, abuse 12/04/2019 PAST SURGICAL HISTORY Procedure Laterality Date KIDNEY STONE SURGERY HX 1993 LAPAROSCOPY SURG CHOLECYSTECTOMY 1996 PAST SURGICAL HISTORY OF 1993 partial left nephrectomy for multiple UTI/scarring REMOVAL GALLBLADDER 1997 TUBAL LIGATION 2000 SOCIAL HISTORY Social History Tobacco Use Smoking status: Former Smoker Smokeless tobacco: Never Used Tobacco comment: quit 1 month ago Substance Use Topics Alcohol use: Not Currently Comment: rarely Drug use: Never MEDICATIONS: lisinopril 2.5 mg tablet Take 2.5 mg by mouth once daily. pantoprazole DR (PROTONIX) 40 mg tablet Take 40 mg by mouth once daily. pioglitazone (ACTOS) 30 mg tablet TAKE 1 TABLET ORALLY ONCE PER DAY FOR 30 DAYS iron polysaccharide complex (FERREX-150) 150 mg iron capsule Take 150 mg by mouth twice daily. buPROPion SR (ZYBAN SR; WELLBUTRIN SR) 150 mg 12 hr tablet TAKE 1 TABLET ORALLY TWICE PER DAY FOR 90 DAYS Ferrous Fumarate 456 mg (150 mg iron) tab Take by mouth once daily. atorvastatin (LIPITOR) 80 mg tablet Take 1 tablet by mouth daily at bedtime. acetaminophen (TYLENOL) 325 mg tablet Take 2 tablets by mouth every 6 hours as needed. clopidogrel (PLAVIX) 75 mg tablet 1 tablet by ORAL/FEEDING TUBE route once daily. aspirin 81 mg chewable tablet Take 4 tablets by mouth once daily for 3 days. senna-docusate (SENNA-S) 8.6-50 mg per tablet Take 1 tablet by mouth twice daily as needed. warfarin (COUMADIN) 5 mg tablet Take 1 tablet by mouth once daily. Please take as directed for INR goal 2-3 blood sugar diagnostic ([employer] VERIO TEST STRIPS) test strip Use as instructed metFORMIN (GLUCOPHAGE) 1,000 mg tablet Take 1,000 mg by mouth twice daily with meals. escitalopram oxalate (LEXAPRO) 20 mg tablet Take 20 mg by mouth once daily. Omeprazole (PRILOSEC) 40 mg capsule Take 40 mg by mouth once daily. Ibuprofen 200 mg cap Take 200 mg by mouth as needed. NIFEdipine ER (PROCARDIA XL) 30 mg 24 hr tablet Take 1 tablet by mouth once daily. insulin glargine (LANTUS SOLOSTAR U-100 INSULIN) 100 unit/mL (3 mL) Inject 12 Units subcutaneously daily at bedtime. insulin lispro (HUMALOG KWIKPEN INSULIN) 100 unit/mL Inject 5 Units subcutaneously three times daily before meals. Insulin [place], Disposable, (BD ULTRA-FINE PORTIA PEN NEEDLE) 32 gauge x 5/32 1 Each three times daily before meals. lancets ([employer] PLUS LANCET) 33 gauge 1 Each three times daily. insulin lispro (HUMALOG) 100 unit/mL injection Inject 0-10 Units subcutaneously daily at bedtime. ADMINISTER CORRECTIONAL INSULIN REGARDLESS OF MEAL OR NUTRITION INTAKEScale 2If Blood Glucose (mg/dL) is:Less than 110 Give 0 [id number] Give 0 [id number] Give 2 -325 Give 4 -395 Give 6 -150 Give 8 [id number] Give 10 unitsGreater than 400 Give 10 units and Notify ProviderNotify provider if 2 consecutive blood glucose values in the previous 24 hours are greater than 250 mg/mL and there have been no changes to the insulin regimen in the previous 24 hours. escitalopram oxalate (LEXAPRO) 20 mg tablet Take 20 mg by mouth once daily. omeprazole (PRILOSEC) 20 mg capsule Take 20 mg by mouth once daily. METFORMIN HCL (METFORMIN ORAL) Take 250 mg by mouth once daily. ALLERGIES: ALLERGIES Allergen Reactions Penicillins Unknown Penicillins Rash Diagnostic tests reviewed for today's visit: Most recent imaging IMPRESSION and PLAN: This office note has been dictated. Limited protocol per Dr. De Luna. Compared to prior study of 09/18/2020, no significant change. LEFT SIDE External iliac artery distal: patent . Common femoral artery : patent . Profunda femoral artery proximal: patent . Superficial femoral artery and Popliteal artery : patent . Compared to prior study of 09/18/2020, no change. RIGHT VESSELS Common iliac artery patent without evidence of aneurysm . External iliac artery patent without evidence of aneurysm at proximal. Internal iliac artery patent without evidence of aneurysm at proximal. LEFT VESSELS Common iliac artery patent without evidence of aneurysm . External iliac artery patent without evidence of aneurysm at proximal. Internal iliac artery patent without evidence of aneurysm at proximal. Compared to prior study of 09/18/2020, no change. RIGHT SIDE Resting right ankle brachial index: 1.35 Normal ankle brachial index at rest in the right leg. Right ankle: Normal at rest. Right small vessel disease versus vasoconstriction. LEFT SIDE Resting left ankle brachial index: 1.27 STAFF PHYSICIAN: Merrill De Luna MD DATE OF SERVICE: December 10, 2021 TIME OF SERVICE: 1:10 PM Medical Decision Making documented in this encounter [facility] Evaluation note 12-10-2021 Note Date & Type Note Facility documented in this encounter [facility] Evaluation note Note Date & Type Note Facility documented in this encounter [facility] Reason for referral (narrative) Outpatient Procedure (Routine) - Pending Review Note Date & Type Note Facility Referral ID Status Reason Start Date Expiration Date Visits Requested Visits Authorized [id number] Pending Review Auto-Generat ed Referral 08/31/2021 08/31/2022 1 1 * Outpatient Procedure (Routine) - Pending Review Specialty Diagnoses / Procedures Referred By Contac t Referred To Contact [facility] Diagnoses Aortic mural thrombus (HCC) Procedures US FEMORAL ARTERY LIZ [facility] DUP-SCAN LXTR ART/ARTL BPGS COMPL BI STUDY Merrill De Luna MD [address] [place] [address] [address] Referral ID Status Reason Start Date Expiration Date Visits Requested Visits Authorized [id number] Pending Review Auto-Generat ed Referral 08/31/2021 08/31/2022 1 1 * Outpatient Procedure (Routine) - Pending Review Specialty Diagnoses / Procedures Referred By Contac t Referred To Contact [facility] Diagnoses Aortic mural thrombus (HCC) Procedures US ABD AORTA COMPLETE VAS LAB DUP-SCAN AORTA IVC ILIAC VASCL/BPGS COMPLETE Merrill De Luna MD [address] [place] [address] [address] Referral ID Status Reason Start Date Expiration Date Visits Requested Visits Authorized [id number] Pending Review Auto-Generat ed Referral 08/31/2021 08/31/2022 1 1 * Outpatient Procedure (Routine) - Pending Review Specialty Diagnoses / Procedures Referred By Contac t Referred To [facility] [place] Diagnoses Aortic mural thrombus (HCC) Procedures US LEG ARTERIAL PERIPH LIZ VAS LAB DUP-SCAN LXTR ART/ARTL BPGS COMPL BI STUDY Merrill De Luna MD [address] [place] [address] [address] [place] [address] Referral ID Status Reason Start Date Expiration Date Visits Requested Visits Authorized [id number] Pending Review Auto-Generat ed Referral 08/31/2021 08/31/2022 1 1 [facility] Summary Purpose Family History No Family History Records FoundNo Family History Records FoundNo Family History Records FoundNo Family History Records Found Advance Directives No Advanced Directives Records FoundDocuments on File Type Date Recorded Patient 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 Advance Directive(s) 11/30/2019 2:17 PM Latest Code Status on File Code Status Date Activated Date Inactivated Comments Full Code 12/01/2019 11:29 PM 12/08/2019 3:50 PM Full Code Order Discussed With: Patient Documents on File Type Date Recorded Patient 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 anation Advance Directive(s) 11/30/2019 2:17 PM Latest Code Status on File Code Status Date Activated Date Inactivated Comments Full Code 12/01/2019 11:29 PM 12/08/2019 3:50 PM Latest Code Status on File Code Status Date Activated Date Inactivated Comments Full Code 12/01/2019 11:29 PM 12/08/2019 3:50 PM Question Answer Comments Full Code Order Discussed With: Patient Additional Source Comments INFORMATION SOURCE (unrecogn ized section and content) DATE CREATED AUTHOR AUTHOR'S ORGANIZ ATION 01/14/2019 [facility] DATE CREATED AUTHOR AUTHOR'S ORGANIZ ATION 01/13/2020 [facility] DATE CREATED AUTHOR AUTHOR'S ORGANIZ ATION 01/25/2023 [facility] Source Comments (unrecognize d section and content) In the event this informatio n is protected by the Federal Confidentiality of Alcohol and Drug Abuse Patient Records regulations: The Federal rules restrict any use of the information to criminally investigate or prosecute any alcohol or drug abuse patient.[facility] the event this information is protected by the Federal Confidentiality of Alcohol and Drug Abuse Patient Records regulations: The Federal rules restrict any use of the information to criminally investigate or prosecute any alcohol or drug abuse patient.[facility] the event this information is protected by the Federal Confidentiality of Alcohol and Drug Abuse Patient Records regulations: The Federal rules restrict any use of the information to criminally investigate or prosecute any alcohol or drug abuse patient.[facility] Care Teams (unrecognized sec tion and content) Deli Manager Relationship Specialty Start Date End Date Shashank Tai Chi [address] [facility] [address] [place], [place] [id number] PCP - General Gerontology 11/30/19 Todd Tabor MD Family Practice 04/01/19 Deli Manager Relationship Specialty Start Date End Date ZairehSashank Chi [address] [facility] [address] [place] [address] PCP - General Gerontology 11/30/19 Todd Tabor MD [address] [facility] [address] [place], [place] [id number] Family Medicine 04/01/19 Reason for Visit (unrecogniz ed section and content) Specialty Diagnoses / Procedures Referred By Contemi t Referred To Contact Vascular Surgery / VASCULAR SURGERY Diagnoses aortic mural thrombus yearly followup Procedures EST PATIENT Self, MD De Luna, Merrill Reilly, [address] [place] [address] Referral ID Status Reason Start Date Expiration Date Visits Re quested Visits Authorized [id number] Open 12/10/2021 03/10/2022 1 1 Reason Comments Patient Question FOR RECORDS PERTAINING TO PATIENTS WHO ARE OR HAVE BEEN ENROLLED IN A CHEMICAL DEPENDENCY/SUBSTANCEABUSE PROGRAM, SOME INFORMATION MAY BE OMITTED. This clinical summary was aggregated from multiple sources. Caution should be exercised in using it in the provision of clinical care. This summary normalizes information from multiple sources, and as a consequence, information in this document may materially change the coding, format and clinical context of patient data. In addition, data may be omitted in some cases. CLINICAL DECISIONS SHOULD BE BASED ON THE PRIMARY CLINICAL RECORDS. [employer] provides no warranty or guarantee of the accuracy or completeness of information in this document.
[2023-06-01 01:22] VITALS: PULSE 71; RESP 18; O2SAT 94
== END 2023-06-01 01:25 | disposition home or self-care (01) ==
PROVIDERS: Emergency Provider Emergency Medicine; PCP Family Medicine Geriatric Medicine; Visit Provider Emergency Medicine
DX: R06.00 Dyspnea, unspecified (principal); E11.9 Type 2 diabetes mellitus without complications; K21.9 Gastro-esophageal reflux disease without esophagitis; E03.9 Hypothyroidism, unspecified; I10 Essential (primary) hypertension; B97.4 Respiratory syncytial virus as the cause of diseases classified elsewhere; E78.5 Hyperlipidemia, unspecified; G47.30 Sleep apnea, unspecified; F17.210 Nicotine dependence, cigarettes, uncomplicated; Z79.899 Other long term (current) drug therapy; Z79.84 Long term (current) use of oral hypoglycemic drugs; Z79.01 Long term (current) use of anticoagulants; Z86.718 Personal history of other venous thrombosis and embolism
CPT/HCPCS: 71046; 80048; 83880; 84484; 85025; 85610; 87631; 93005; 99284; A4216

== ENCOUNTER 2023-06-10 18:34 | Emergency (ER) | payer BC, SELFPAY ==
[2023-06-10 18:35] VITALS: BP 116/74; PULSE 97; RESP 16; TEMP 36.4; O2SAT 95; BMI 30.5
--- NOTE | 2023-06-10 19:17 | CT_ITS ---
STUDY: CT ABDOMEN AND PELVIS WITH CONTRAST REASON FOR EXAM: Female, 53 years old. abdominal pain RADIATION DOSAGE (If Supplied By Facility): CTDIvol = ( 15.05 ) mGy, DLP = ( 1016.30 ) mGycm TECHNIQUE: Transaxial images were obtained from the dome of the diaphragm to the symphysis pubis without oral contrast. IV 100mL [id number]-[id number] was administered. Sagittal and coronal images were reconstructed. Individualized dose optimization techniques were used for this CT. COMPARISON: July 04, 2022 CT abdomen and pelvis FINDINGS: The visualized lung bases are unremarkable. The visualized portions of the heart are within normal limits. Normal liver. Gallbladder surgically absent. Normal spleen. Normal pancreas. Normal bilateral adrenal glands. Normal right kidney. Normal left kidney. Normal visualized stomach. Normal small intestine. There appears to be circumferential thickening of the colon. The appendix is visualized and appears normal. Endovascular aortic stent patent. Normal inferior vena cava. Normal retroperitoneum. Normal urinary bladder. Uterus normal. Normal abdominal wall. Normal osseous structures. CT/Abdomen/Pelvis W IV Cont ONLY IMPRESSION: Possible nonspecific colitis Electronically Signed: Justo Oconnell MD at 21:00 EST ,
--- OUTSIDE RECORDS SUMMARY | 2023-06-10 19:22 | XMS RPT_ITS | CCD ---
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 Role Phone SUHA RUSSELL CNP Admitting [...] Chi Primary Care Provider Todd Tabor MD Unavailable Shashank Tai Chi Primary Care Provider Todd Tabor MD [phone] Allergies Allergy Classification Reported Allergen(s) Allergy Type Date of Onset Reaction(s) Facility (1 source) Penicillins Drug allergy (disorder) [facility]ository (2 sources) Penicillins Drug Allergy 03-14-2014 Rash, Unknown [facility] (4 sources) Penicillins Drug Allergy 03-14-2014 Rash, Unknown [facility] Medications Completed/Discontinued Medications Medication Drug Class(es) Dates [...] and due to atherosclerosis; Translations: [Atherosclerosis of [place] arteries of extremities with intermittent claudication, bilateral [...] mm[Hg] Merrill De Luna MD Work Phone: [facility] 12-10-2021 12:50-0400 Heart rate 66 /min Merrill De Luna MD Work Phone: [facility] 12-10-2021 12:50-0400 Systolic blood pressure 119 mm[Hg] Merrill De Luna MD Work Phone: [facility] Encounters Encounter Date Encounter Type Care Provider Facility Start: 01-09-2023 Telephone encounter Merrill izaguirre MD Work Phone: Vascular Surg Dept Procedures Date Procedure Procedure Detail Performing Clinician Start: 04-05-2019 Mammography Merrill De Luna MD Work Phone: Plan of Treatment Date Care Activity Detail Author Start: 04-05-2024 HPV TESTING HPV TESTING [facility] Start: 04-05-2024 PAP TESTING PAP TESTING [facility] Start: 01-31-2023 Influenza vaccination INFLUENZA (#1) [facility] Start: 12-10-2022 BP CONTROLLED (<130/80) BP CONTROLLED (<130/80) [facility] Start: 01-31-2022 Influenza vaccination [facility] Start: 09-18-2021 BP CONTROLLED (<130/80) BP CONTROLLED (<130/80) [facility] Start: 11-28-2020 3 comp foot exam completed DIABETIC FOOT EXAM [facility] Start: 2020 SHINGRIX VACCINE (1 of 2) SHINGRIX VACCINE (1 of 2) [facility] Start: 04-05-2020 Mammography MAMMOGRAM [facility] Start: 03-02-2020 Hemoglobin A1c/Hemoglobin.total in Blood HBA1C [facility] Start: 2015 COLOGUARD (FIT-DNA) COLOGUARD (FIT-DNA) [facility] Start: 2015 Colonoscopy COLONOSCOPY [facility] Start: 2015 COLORECTAL CANCER SCREENING COLORECTAL CANCER SCREENING [facility] Start: [address] COLONOGRAPHY [facility] Start: 2015 FECAL OCCULT BLOOD FECAL OCCULT BLOOD [facility] Start: 2015 SIGMOIDOSCOPY SIGMOIDOSCOPY [facility] Start: 1989 Urine microalbumin profile DTAP,TDAP,TD (1 - Tdap) [facility] Start: 1988 ANNUAL PCP TEAM CHRONIC DISEASE VISIT ANNUAL PCP TEAM CHRONIC DISEASE VISIT [facility] Start: 1988 BP CONTROLLED (<130/80) BP CONTROLLED (<130/80) [facility] Start: 1988 Hepatitis B surface antibody level LDL CHOLESTEROL [facility] Start: 1988 HIV SCREENING HIV SCREENING [facility] Start: 1986 ONE PNEUMOVAX PRIOR TO AGE 65 ONE PNEUMOVAX PRIOR TO AGE 65 [facility] Start: 1980 Hepatitis B screening URINE ALBUMIN:CREATININE RATIO [facility] Start: 1980 Hepatitis C antibody, confirmatory test DILATED RETINAL EXAM [facility] Start: 1976 PNEUMOCOCCAL (1 - PCV) PNEUMOCOCCAL (1 - PCV) [facility] Start: 1975 COVID-19 VACCINE (1) COVID-19 VACCINE (1) [facility] Start: 1970 COVID-19 VACCINE (#1) COVID-19 VACCINE (#1) [facility] End: 08-31-2022 PVR ANK/[place]/TOE [facility]Z V[facility] LAB PVR ANK/[place]/TOE [facility] Vascular Lab Routine Aortic mural thrombus (HCC) 1 Occurrences starting 08/31/2021 until 08/31/2022 [facility] Work Phone: Payers Date Payer Category Payer Unknown [employer] PPO [id number] 2021-Present [phone] [address] [place] [address] PPO [id number] 2021 Unknown [employer] PPO [id number] 2021-Present [phone] [address] [place] [address] PPO [id number] 2020 Unknown [employer] PREF ERRED NETWORK [facility] [id number] 2020-Present [phone] [address] [address] [place] [address] Indemnity [id number] 2016 Unknown [id number] 1970 Unknown [id number] 1 1970 Unknown [id number] 1 1970 Unknown [id number] 1 1970 Unknown [id number] 1 1970 Unknown [id number] 1 1970 Unknown [id number] 1 1970 Unknown [id number] 1 1970 Unknown [id number] 1 1970 Unknown [id number] 4 Social History Date Type Detail Facility Start: 12-04-2019 Tobacco smoking status NHIS Ex-smoker [facility] Work Phone: Start: 12-04-2019 Tobacco use and exposure Smokeless tobacco non-user [facility] Work Phone: Start: 09-18-2020 End: 12-10-2021 Alcohol intake Ex-drinker (finding) [facility] Start: 04-05-2019 End: 11-30-2019 History SDOH Alcohol Frequency 1 [facility] Start: 11-30-2019 History SDOH Financial 5 [facility] Start: 11-30-2019 History SDOH Transport Non-Med 2 [facility] Start: 12-04-2019 Tobacco Comment quit 1 month ago [facility] Start: 1970 Sex Assigned At Not on file [facility] Start: 1970 Sex Assigned At Female [facility] History of tobacco use Current smoker [facility] Work Phone: Start: 04-05-2019 End: 06-30-2022 History of Social function [facility] Work Phone: Start: 04-05-2019 End: 06-30-2022 Alcohol Use Disorder Identification Test - Consumption [AUDIT-C] [facility] Work Phone: How often to you hav e a drink containing alcohol? Never [facility] Work Phone: Average Number of Drinks Not on file [facility] Work Phone: (I/We) worried ronen er (my/our) food would run out before (I/we) got money to buy more. Never true [facility] Work Phone: Start: 11-23-2021 Gender identity Identifies as female gender (finding) [facility] Start: 11-23-2021 Sexual orientation Heterosexual (finding) [facility] Medical Equipment Procedure Code Equipment Code Equipment Origin al Text Equipment Identifier Dates Stent Protege Gp s Exprt 14mm .079in Large Diameter Nitinol 30mm 120cm - [id number] Start: 12-04-2019 Start: 12-08-2019 Note 01-09-2023 [...] be sent to her doctor. Gisele Arriola Operator Supply documented in this encounter [facility] History of Present illness Narrative 12-10-2021 Merrill De Luna MD - 12/10/2021 2:00 PM EDT Note Date & Type Note Facility 12-10-2021 History of Presen t illness Narrative Images from the original note were not included. DATE: 12/04/2019 SURGEON: Merrill De Luna M.D. SURGERY: First order aortic access on the right x2. First order aortic access on the left x1. 5-Slovenian sheath on the left, 5-Slovenian sheath on the right, 8- Slovenian sheath up sized to a 20-Slovenian sheath on the right. Mechanical thrombectomy with CATD of aortoiliac segment. Nitish embolectomy of aortoiliac segment from the right groin with a 20-Slovenian sheath. Right iliac embolectomy. Left SFA and [...] than 70. Heart , V[facility] Thor[facility] [place] DEPARTMENT OF VASCULAR SURGERY OUTPATIENT VISIT DATE [...] tomorrow pending result of imaging Atherosclerosis of [place] artery of both lower extremities with intermittent [...] for INR goal 2-3 blood sugar diagnostic ([employer] VERIO TEST STRIPS) test strip Use as [...] subcutaneously three times daily before meals. Insulin [place], Disposable, (BD ULTRA-FINE PORTIA PEN NEEDLE) 32 gauge x 5/32 1 Each three times daily before meals. lancets ([employer] DELENDOTRONIX PLUS LANCET) 33 gauge 1 Each three times daily. insulin lispro (HUMALOG) 100 unit/mL injection Inject 0-10 Units subcutaneously daily at bedtime. ADMINISTER CORRECTIONAL INSULIN REGARDLESS OF MEAL OR NUTRITION INTAKEScale 2If Blood Glucose (mg/dL) is:Less than 110 Give 0 [id number] Give 0 [id number] Give 2 -603 Give 4 [id number] Give 6 [id number] Give 8 [id number] Give 10 unitsGreater than 400 Give 10 [...] Medical Decision Making documented in this encounter [facility] Evaluation note 12-10-2021 Note Date & Type Note Facility documented in this encounter [facility] Evaluation note Note Date & Type Note Facility documented in this encounter [facility] Reason for referral (narrative) Outpatient Procedure (Routine) - Pending Review Note Date & Type Note Facility Referral ID Status Reason Start Date Expiration Date Visits Requested Visits Authorized [id number] Pending Review Auto-Generat ed Referral 08/31/2021 08/31/2022 1 1 * Outpatient Procedure (Routine) - Pending Review Specialty Diagnoses / Procedures Referred By Contac t Referred To Contact [facility] Diagnoses Aortic mural thrombus (HCC) Procedures US FEMORAL ARTERY LIZ [facility] LAB DUP-SCAN LXTR ART/ARTL BPGS COMPL BI STUDY Merrill De Luna MD [address] [place] [address] [address] Referral ID Status Reason Start Date Expiration Date Visits Requested Visits Authorized [id number] Pending Review Auto-Generat ed Referral 08/31/2021 08/31/2022 1 1 * Outpatient Procedure (Routine) - Pending Review Specialty Diagnoses / Procedures Referred By Contac t Referred To Contact [facility] Diagnoses Aortic mural thrombus (HCC) Procedures US ABD AORTA COMPLETE VAS LAB DUP-SCAN AORTA IVC ILIAC VASCL/BPGS COMPLETE Merrill De Luna MD [address] [place] [address] [address] Referral ID Status Reason Start Date Expiration Date Visits Requested Visits Authorized [id number] Pending Review Auto-Generat ed Referral 08/31/2021 08/31/2022 1 1 * Outpatient Procedure (Routine) - Pending Review Specialty Diagnoses / Procedures Referred By Contac t Referred To [facility] [place] Diagnoses Aortic mural thrombus (HCC) Procedures US LEG ARTERIAL PERIPH LIZ VAS LAB DUP-SCAN LXTR ART/ARTL BPGS COMPL BI STUDY Merrill De Luna MD [address] [place] [address] [address] [address] [place] [address] Referral ID Status Reason Start Date Expiration Date Visits Requested Visits Authorized [id number] Pending Review Auto-Generat ed Referral 08/31/2021 08/31/2022 1 1 [facility] Summary Purpose Family History No Family History Records FoundNo Family History Records FoundNo Family History Records FoundNo Family History Records Found Advance Directives No Advanced Directives Records FoundDocuments on File Type Date Recorded 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 Advance Directive(s) 11/30/2019 2:17 PM Latest Code Status on File Code Status Date Activated Date Inactivated Comments Full Code 12/01/2019 11:29 PM 12/08/2019 3:50 PM Full Code Order Discussed With: Patient Documents on File Type Date Recorded 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 Advance Directive(s) 11/30/2019 2:17 PM [...] DATE CREATED AUTHOR AUTHOR'S ORGANIZ ATION 01/14/[address] [facility] DATE CREATED AUTHOR AUTHOR'S ORGANIZ ATION 01/13/2020 [facility] DATE CREATED AUTHOR AUTHOR'S ORGANIZ ATION 01/25/2023 [facility] Source Comments (unrecognize d section and content) In the event this informatio n is protected by the Federal Confidentiality of Alcohol and Drug Abuse Patient Records regulations: The Federal rules restrict any use of the information to criminally investigate or prosecute any alcohol or drug abuse patient.[facility] the event this information is protected by the Federal Confidentiality of Alcohol and Drug Abuse Patient Records regulations: The Federal rules restrict any use of the information to criminally investigate or prosecute any alcohol or drug abuse patient.[facility] the event this information is protected by the Federal Confidentiality of Alcohol and Drug Abuse Patient Records regulations: The Federal rules restrict any use of the information to criminally investigate or prosecute any alcohol or drug abuse patient.[facility] Care Teams (unrecognized sec tion and content) Quill Machine Operator Relationship Specialty Start Date End Date Shashank Tai Chi [address] [facility] [address] [place], [place] [id number] PCP - General Gerontology 11/30/19 Todd Tabor MD Family Practice 04/01/19 Quill Machine Operator Relationship Specialty Start Date End Date ZaireShashank Chi [address] [facility] [address] [place] [address] PCP - General Gerontology 11/30/19 Todd Tabor MD [address] [facility] [address] [place], [place] [id number] Family Medicine 04/01/19 Reason for Visit (unrecogniz ed section and content) Specialty Diagnoses / Procedures Referred By Contemi t Referred To Contact Vascular Surgery / VASCULAR SURGERY Diagnoses aortic mural thrombus yearly followup Procedures EST PATIENT Self, MD De Luna, Merrill Reilly, [address] [place] [address] Referral ID Status Reason Start Date Expiration Date Visits Re quested Visits Authorized [id number] Open 12/10/2021 03/10/2022 1 1 Reason Comments [...] BE BASED ON THE PRIMARY CLINICAL RECORDS. [employer] provides no warranty or guarantee of the accuracy or completeness of information in this document.
--- NOTE | 2023-06-10 19:30 | ED.VIS.GI ---
HPI <KAYLEEN Millan - Last Filed: 06/10/23 21:08> HPI - GI History of Present Illness Chief Complaint: Abd Pain Narrative Narrative: Patient presenting today due to diarrhea and abdominal pain that she has had over the past 24 hours. She reports that she has been treated with multiple oral antibiotics over the past month due to history of bronchitis and pneumonia. She is unsure what antibiotics she is taking. She reports that she has had multiple bouts of foul-smelling diarrhea over the past day. She reports concerns for C. difficile due to her recent antibiotics, she denies any history of this. She also feels nauseous and has lower abdominal cramping/dull pain that has been constant today. She reports that earlier, she was ambulating to use the restroom and began to feel sweaty and felt like she could pass out but did not. Previous abdominal surgeries include , tubal ligation, and cholecystectomy. She denies any fevers, chills, urinary symptoms, melena, hematochezia, and vomiting. 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 Bruising Chronic cough Contact with or exposure to other viral diseases Contraceptive management Depression Diabetes mellitus DVT (deep venous thrombosis) Easy bruising Excessive bleeding Gastric reflux History of echocardiogram History of kidney stones Injury of head and neck Leg cramps Leukocytosis Menorrhagia with irregular cycle Migraine headache Multifocal pneumonia Sleep apnea Smoker URI (upper respiratory infection) Wears dentures Wears glasses Home Medications metformin 500 mg tablet 1,000 mg PO BID diabetes 02/28/14 [History Last Taken 11/26/19 16:00] atorvastatin 40 mg tablet 80 mg PO DAILY cholesterol 11/26/19 [History Last Taken 11/25/19] clopidogrel 75 mg tablet 75 mg PO DAILY 12/14/19 [History Last Taken 07/05/22] warfarin 5 mg tablet 7 mg PO DAILY DVT 12/14/19 [History Last Taken 07/05/22] biotin 5,000 mcg disintegrating tablet 10,000 mcg PO DAILY 04/03/20 [History Last Taken Unknown] pantoprazole 40 mg tablet,delayed release 40 mg PO DAILY 04/03/20 [History Last Taken 07/09/22] doxepin 10 mg capsule 10 mg PO PRN PRN Sleep 12/14/20 [History Last Taken Unknown] escitalopram oxalate 20 mg tablet (Lexapro) 20 mg PO DAILY 12/14/20 [History Last Taken Unknown] bupropion HCl 150 mg tablet,12 hr sustained-release 150 mg PO BID 07/05/22 [History Last Taken Unknown] valsartan 160 mg tablet 160 mg PO DAILY 07/05/22 [History Last Taken 07/09/22] sennosides 8.6 mg-docusate sodium 50 mg tablet (Senexon-S) 1 tab PO BID PRN Constipation 11/25/22 [History Last Taken Unknown] dapagliflozin propanediol 10 mg tablet (Farxiga) 10 mg PO DAILY 05/15/23 [History Last Taken Unknown] pioglitazone 30 mg tablet 30 mg PO DAILY Diabetes 05/15/23 [History Last Taken Unknown] levofloxacin 750 mg tablet 750 mg PO DAILY #5 tabs 05/17/23 [Rx Last Taken Unknown] ciprofloxacin HCl 500 mg tablet 500 mg PO BID #20 TABLETS 06/10/23 [Rx Last Taken Unknown] metronidazole 500 mg tablet 500 mg PO Q6H #40 tabs 06/10/23 [Rx Last Taken Unknown] Allergy/AdvReac Type Severity Reaction Status Date / Time latex Allergy Mild rash Verified 06/10/23 18:37 Penicillins [PCN] Allergy Hives Verified 06/10/23 18:37 Family History Brother Diabetes Father Diabetes Mother Diabetes Uncle Diabetes Skin cancer Colon cancer Uncle Diabetes Aunt Breast cancer Surgical History H/O lithotripsy H/O tubal ligation History of embolectomy History of esophagogastroduodenoscopy (EGD) Hx of cholecystectomy Hx of partial nephrectomy Status post endometrial ablation Social History household members: family current occupational status: employed current occupation: [employer] history of recent travel: No sexually active: No Smoking Status: Current every day smoker tobacco type: cigarettes alcohol intake: never substance use type: does not use what type of physical activity do you participate in: other seatbelt use: always do you feel safe at home: Yes additional social history: single ROS <KAYLEEN Millan - Last Filed: 06/10/23 21:08> ROS ED Constitutional Constitutional ED: Denies chills or fever(s) Cardiovascular Cardiovascular: Denies chest pain Respiratory/Chest Respiratory/Chest: Denies cough or dyspnea Gastrointestinal Gastrointestinal: Reports abdominal pain, diarrhea and nausea; Denies melena or vomiting Genitourinary Genitourinary ED: Denies dysuria, hematuria or urinary urgency Musculoskeletal Musculoskeletal: Denies arthralgias or myalgias Integumentary Denies rash Neurologic Neurologic: Denies weakness EXAM <KAYLEEN Millan - Last Filed: 06/10/23 21:08> Physical Exam Const Vital Signs: 06/10/23 18:35 Temperature 97.5 F L Temperature Source Temporal Pulse Rate 97 Respiratory Rate 16 Blood Pressure 116/74 Blood Pressure Mean 88 Pulse Ox 95 Oxygen Delivery Method Room Air Positive well nourished, well developed and no apparent distress General Appearance ED: well developed HEENT Reports normocephalic and head/scalp atraumatic Mouth ED: Yes moist mucous membranes normal Eyes PERRL and EOMs intact bilaterally Neck full ROM and supple Chest Wall inspection of chest normal Resp normal respiratory effort and clear to auscultation bilaterally Cardio regular rate and regular rhythm GI soft to palpation, non-distended and no masses GI Narrative: Lower abdominal tenderness to palpation, no rigidity, guarding, or peritoneal signs. Back/Spine normal ROM and normal to inspection Extremity normal to inspection and full ROM Neuro oriented x3, CN's II-XII intact bilaterally, moves all extremities, no focal motor deficits and no sensory deficits noted Sensorium / Orientation: awake and alert Psych mental status grossly normal and thought process normal Skin no rashes or lesions noted and no wounds <Dr. Yousuf Ngo DO - Last Filed: 06/10/23 22:35> Physical Exam Const Vital Signs: 06/10/23 18:35 Temperature 97.5 F L Temperature Source Temporal Pulse Rate 97 Respiratory Rate 16 Blood Pressure 116/74 Blood Pressure Mean 88 Pulse Ox 95 Oxygen Delivery Method Room Air MDM <KAYLEEN Millan - Last Filed: 06/10/23 21:08> MDM MDM Narrative Medical decision making narrative: Patient presenting due to abdominal pain and diarrhea that started about 24 hours ago. Pain is located mainly around her bellybutton and lower abdomen. 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 difficile due to all of her recent antibiotics for respiratory infections. No history of C. difficile. She was diagnosed with pneumonia on 05/17 and was started on Rocephin and azithromycin, she was hospitalized for this and was discharged home on levofloxacin. After [place], she contracted RSV and her PCP treated her with azithromycin. Labs will be obtained to rule out leukocytosis, anemia, electrolyte abnormality, DAVID, and UTI. CT of the abdomen and pelvis will be obtained to rule out diverticulitis, appendicitis, bowel obstruction, and other etiology. She will be given IV fluids, Zofran, and Bentyl. CT shows nonspecific colitis. She does have a white blood cell count of 17.2. C. difficile is pending. Lab Data Attestation: I reviewed the patient's lab results. Lab results narrative: CBC 17.2, sodium 135, UA negative for UTI Labs: Laboratory Results - last 24 hr 06/10/23 06/10/23 19:35 19:40 WBC 17.2 H RBC 4.66 Hgb 14.8 Hct 42.1 MCV 90.3 MCH 31.8 MCHC 35.2 RDW Std Deviation 46.1 H RDW Coeff of Edvin 13.9 Plt Count 435 MPV 9.5 Immature Gran % (Auto) 2.200 H Neut % (Auto) 76.1 H Lymph % (Auto) 16.5 L Potter % (Auto) 4.1 Eos % (Auto) 0.2 Baso % (Auto) 0.9 Absolute Neuts (auto) 13.1 H Absolute Lymphs (auto) 2.84 Nucleated RBC % 0 Sodium 135 L Potassium 3.8 Chloride 105 Carbon Dioxide 27.0 Anion Gap 3 L BUN 18 Creatinine 0.82 Estim Creat Clear Calc 90.61 Est GFR (MDRD) Af Amer 94 Est GFR (MDRD) Non-Af 77 BUN/Creatinine Ratio 21.9 H Glucose 297 H Calcium 9.7 Total Bilirubin 0.70 AST 13 L ALT 21 Alkaline Phosphatase 100 Total Protein 6.5 Albumin 3.3 Globulin 3.2 Albumin/Globulin Ratio 1.0 Lipase 13 Urine Color Yellow Urine Clarity Clear Urine pH 6.0 Ur Specific [place] 1.010 Urine Protein Negative Urine Glucose (UA) 1000 H Urine Ketones Negative Urine Occult Blood 10 H Urine Nitrite Negative Urine Bilirubin Negative Urine Urobilinogen Normal Ur Leukocyte Esterase Negative Urine RBC 0-5 SEEN Urine WBC 0-5 SEEN Ur Squamous Epith Cells 0-5 SEEN Urine Bacteria 0 SEEN Urine Mucus 0 SEEN Radiography Diagnostic Testing: Clinical Impression(s) from Imaging Studies Abdomen/Pelvis CT 06/10/23 19:17 IMPRESSION: Possible nonspecific colitis Electronically Signed: Justo Oconnell MD at 21:00 EST Reading Location ID and State: [facility] / [place] Tel , Service support , <Dr. Yousuf Ngo, DO - Last Filed: 06/10/23 22:35> [facility] Lab Data Labs: Laboratory Results - last 24 hr 06/10/23 06/10/23 19:35 19:40 WBC 17.2 H RBC 4.66 Hgb 14.8 Hct 42.1 MCV 90.3 MCH 31.8 MCHC 35.2 RDW Std Deviation 46.1 H RDW Coeff of Edvin 13.9 Plt Count 435 MPV 9.5 Immature Gran % (Auto) 2.200 H Neut % (Auto) 76.1 H Lymph % (Auto) 16.5 L Potter % (Auto) 4.1 Eos % (Auto) 0.2 Baso % (Auto) 0.9 Absolute Neuts (auto) 13.1 H Absolute Lymphs (auto) 2.84 Nucleated RBC % 0 Sodium 135 L Potassium 3.8 Chloride 105 Carbon Dioxide 27.0 Anion Gap 3 L BUN 18 Creatinine 0.82 Estim Creat Clear Calc 90.61 Est GFR (MDRD) Af Amer 94 Est GFR (MDRD) Non-Af 77 BUN/Creatinine Ratio 21.9 H Glucose 297 H Calcium 9.7 Total Bilirubin 0.70 AST 13 L ALT 21 Alkaline Phosphatase 100 Total Protein 6.5 Albumin 3.3 Globulin 3.2 Albumin/Globulin Ratio 1.0 Lipase 13 Urine Color Yellow Urine Clarity Clear Urine pH 6.0 Ur Specific [place] 1.010 Urine Protein Negative Urine Glucose (UA) 1000 H Urine Ketones Negative Urine Occult Blood 10 H Urine Nitrite Negative Urine Bilirubin Negative Urine Urobilinogen Normal Ur Leukocyte Esterase Negative Urine RBC 0-5 SEEN Urine WBC 0-5 SEEN Ur Squamous Epith Cells 0-5 SEEN Urine Bacteria 0 SEEN Urine Mucus 0 SEEN Radiography Diagnostic Testing: Clinical Impression(s) from Imaging Studies Abdomen/Pelvis CT 06/10/23 19:17 IMPRESSION: Possible nonspecific colitis Electronically Signed: Justo Oconnell MD at 21:00 EST Reading Location ID and State: [address] [place] [address] Tel , Service support , Treatment and Re-Evaluation :: I have personally performed a face to face assessment of the patient and have reviewed the TEE Note. I performed a substantive portion of the visit including all aspects of the following. My mishra findings include: History: Patient presents with abdominal pain that began today. Patient states it is cramping. Patient states it is mainly over the lower abdomen. Patient states it has been constant. Patient states nothing makes it better and nothing makes it worse. Patient admits to some nausea but denies any vomiting. Patient denies any diarrhea, melena, or hematochezia. Patient denies any urinary complaints. Patient admits to some dizziness and lightheadedness today as well. Patient states she has been on antibiotics recently for bronchitis. Patient is concerned that she may have C. difficile colitis. Exam: Vital signs are stable. Patient is afebrile. Patient is in no acute distress. Oral mucosa is pink and moist. Neck is supple. Trachea is midline. There is no JVD. Heart was regular rate and rhythm. Lungs are clear and equal bilateral. Abdomen is soft. Bowel sounds are normal. There is mild lower abdominal tenderness. There is no rebound or guarding noted. Cranial nerves II through XII are intact. There are no focal motor or sensory deficits noted. Medical Decision Making: Differential diagnosis includes colitis, diverticulitis, urinary tract infection, C. difficile colitis, bowel obstruction, perforation, and pancreatitis. CBC will be obtained to assess for leukocytosis and anemia. Comprehensive metabolic profile will be obtained to assess for hepatic function, renal function, and electrolyte abnormality. Urinalysis will be obtained to assess for urinary tract infection. Lipase will be obtained to assess for pancreatitis. CT scan of the abdomen and pelvis will be obtained to assess for bowel obstruction, perforation, colitis, diverticulitis. CBC was reviewed. There is a leukocytosis of 17.2. Comprehensive metabolic profile was reviewed. Glucose was elevated at 297. Anion gap was normal. Lipase was reviewed and was normal at 13. Urinalysis was reviewed. There is no evidence of urinary tract infection or hematuria. CT scan of the abdomen pelvis was obtained. There is findings of colitis. Stool for C. difficile was obtained and was negative. Patient was advised of her findings. Patient was given prescriptions for Cipro and Flagyl. Patient was given her first dose here. Patient was instructed to avoid alcohol while taking the Flagyl. Patient was instructed to follow-up with her primary care physician in 5 to 7 days. Patient understood and was agreeable with the plan. All questions were answered. Discharge Plan Triage Chief Complaint: Abd Pain ED Midlevel Provider: Vilma Hernandez ED Provider: Yousuf Ngo Dx/Rx/DC Orders Clinical Impression: Colitis, Abdominal pain Instructions: ED Understanding Colitis Prescriptions: New metronidazole [metronidazole] 500 mg tablet 500 mg PO Q6H Qty: 40 0RF ciprofloxacin HCl [ciprofloxacin HCl] 500 mg tablet 500 mg PO BID Qty: 20 0RF No Action metformin 500 MG tablet 1,000 mg PO BID Patient Comments: atorvastatin 40 MG tablet 80 mg PO DAILY clopidogrel 75 MG tablet 75 mg PO DAILY warfarin 5 MG tablet 7 mg PO DAILY pantoprazole 40 MG tablet 40 mg PO DAILY biotin 5,000 MCG tablet,disintegrating 10,000 mcg PO DAILY sennosides-docusate sodium [Senexon-S] 8.6-50 mg tablet 1 tab PO BID PRN (Reason: Constipation) doxepin 10 mg capsule 10 mg PO PRN PRN (Reason: Sleep) escitalopram oxalate [Lexapro] 20 mg tablet 20 mg PO DAILY Patient Comments: TAKE 1 TABLET BY MOUTH EVERY DAY bupropion HCl 150 mg tablet sustained-release 12 hr 150 mg PO BID Patient Comments: TAKE 1 TABLET ORALLY TWICE PER DAY FOR 90 DAYS valsartan 160 mg tablet 160 mg PO DAILY Patient Comments: TAKE 1 TABLET BY MOUTH EVERY DAY Farxiga 10 mg tablet 10 mg PO DAILY pioglitazone 30 mg tablet 30 mg PO DAILY Patient Comments: TAKE 1 TABLET ORALLY ONCE PER DAY FOR 30 DAYS levofloxacin 750 mg tablet 750 mg PO DAILY Qty: 5 0RF Primary Care Provider: Shashank Tai Chi Referrals: Shashank Tai Chi, MD [Primary Care Provider] - 5-7 Days Activity Restrictions/Additional Instructions: Monitor your INR while taking the antibiotics. Do not drink any alcohol while taking antibiotics. Disposition Disposition: Home, Self Care
[2023-06-10] MEDS: Ondansetron 4 MG/2 ML Vial IV (19:39)
[2023-06-10] MEDS: Dicyclomine 20 MG/2 ML Vial IM (19:39)
[2023-06-10] MEDS: 0.9% Normal Saline (1000mL) 1,000 ML 1000 ML IV (19:40)
[2023-06-10 19:45] LABS: Bacteria 0 SEEN /hpf (None Seen); Mucous, Urine 0 SEEN /hpf (<or=2+)
[2023-06-10 20:02] LABS: Absolute Lymphocyte Count 2.84 X10^3/uL (0.83-4.51); Absolute Neutrophil Count 13.1 X10^3/uL (2.0-7.7); Basophil# 0.15 X10^3/uL; Basophil% 0.9 % (0-1); Eosinophil# 0.03 X10^3/uL; Eosinophils% 0.2 % (0-5); Hematocrit 42.1 % (37-47); Hemoglobin 14.8 g/dL (12.0-15.0); Lymphocyte # 2.84 X10^3/ul (0.83-4.51); Lymphocyte % 16.5 % (19-41); Mean Corp Hgb Conc 35.2 g/dL (32-36); Mean Corpuscular Hgb 31.8 pg (27.0-32.0); Mean Corpuscular Volume 90.3 fL (81-99); Mean Platelet Vol. 9.5 fl (6.2-12.0); Monocyte# 0.71 X10^3/uL; Monocyte% 4.1 % (0-10); NRBC Flagged by Analyzer 0 % (0-5); Neutrophil # 13.13 X10^3/uL (2.7-7.7); Neutrophil % 76.1 % (47-70); Platelet Count 435 K/mm3 (150-450); RBC Distribution Width CV 13.9 % (11.6-14.6); RBC Distribution Width SD 46.1 fl (35.1-43.9); Red Blood Count 4.66 M/mm3 (4.2-5.4); White Blood Count 17.2 K/mm3 (4.4-11.0)
[2023-06-10 20:06] LABS: Color, Urine Yellow (Yellow); Glucose, Dipstick 1000 mg/dl (Normal); Ketone-Dipstick Negative (Negative); Leukocyte Esterase-Dipstick Negative /ul (Negative); Nitrite-Dipstick Negative (Negative); Occult Blood-Urine 10 /ul (Negative); Protein-Dipstick Negative (Negative); Urine Bilirubin Dipstick Negative (Negative); Urine Clarity Clear (Clear); Urine Urobilinogen Normal (Normal)
[2023-06-10 20:14] LABS: Red Blood Cells-Urine 0-5 SEEN /hpf (0-5); Squamous Epithelial Cells - UA 0-5 SEEN /hpf (5-10); White Blood Cells 0-5 SEEN /hpf (0-5)
[2023-06-10 20:20] LABS: AST(SGOT) 13 U/L (15-37); Alanine Aminotransfer ALT/SGPT 21 U/L (13-56); Albumin, Serum 3.3 g/dL (3.2-5.0); Alkaline Phosphatase 100 U/L (45-117); Anion Gap 3 (5-15); BUN 18 mg/dL (7-18); BUN/Creat Ratio 21.9 RATIO (10-20); Calcium,Total 9.7 mg/dL (8.5-10.1); Chloride 105 mmol/L (98-107); Creatinine, Serum 0.82 mg/dL (0.55-1.02); EST Glomerular Filtration Rate 77 mL/min (>60); Est Glom Filt Rate - Afr Amer 94 mL/min (>60); Estimated Creatinine Clearance 90.61 ml/min; Globulin 3.2 g/dL (2.2-4.2); Glucose 297 mg/dL (74-106); Lipase 13 U/L (13-75); Potassium 3.8 mmol/L (3.5-5.1); Protein, Total 6.5 g/dL (6.4-8.2); Sodium Level 135 mmol/L (136-145)
[2023-06-10 21:23] VITALS: BP 116/72; PULSE 84; RESP 16; O2SAT 97
[2023-06-10] MEDS: Ciprofloxacin 500 MG Tablet PO (22:47)
[2023-06-10] MEDS: metroNIDAZOLE 500 MG Tablet PO (22:47)
[2023-06-10 22:49] VITALS: BP 115/71; PULSE 81; RESP 16; O2SAT 98
== END 2023-06-10 22:51 | disposition home or self-care (01) ==
PROVIDERS: Physician Assistant; Emergency Provider Emergency Medicine; PCP Family Medicine Geriatric Medicine; Visit Provider Emergency Medicine
DX: K52.9 Noninfective gastroenteritis and colitis, unspecified (principal); E11.9 Type 2 diabetes mellitus without complications; F17.210 Nicotine dependence, cigarettes, uncomplicated; Z90.49 Acquired absence of other specified parts of digestive tract; Z90.5 Acquired absence of kidney; Z79.01 Long term (current) use of anticoagulants; Z79.02 Long term (current) use of antithrombotics/antiplatelets; Z79.84 Long term (current) use of oral hypoglycemic drugs
CPT/HCPCS: 74177; 80053; 81001; 83690; 85025; 87493; 96361; 96372; 96374; 99284; J7030; Q9967; J2405

== ENCOUNTER → 2023-06-13 | Outpatient (CLI) | payer BC, SELFPAY ==
--- OUTSIDE RECORDS SUMMARY | 2023-06-13 12:08 | XMS RPT_ITS | CCD ---
Author Name Unknown Address [address] [place] [address] Organization [facility] Care Team Providers Care Conference Center Coordinator Name Role Phone SUHA RUSSELL CNP Admitting [...] Primary Care Provider Todd Tabor MD Unavailable [phone] Shashank Tai Chi Primary Care Provider [phone] Todd Tabor MD [phone] Allergies Allergy Classification Reported Allergen(s) Allergy Type Date of Onset Reaction(s) Facility (1 source) Penicillins Drug allergy (disorder) [facility] Repository (2 sources) Penicillins Drug Allergy 03-14-2014 Rash, Unknown [facility] (4 sources) Penicillins Drug Allergy 03-14-2014 Rash, Unknown 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 12-10-2021 12:50-0400 Heart rate 66 /min Merrill De Luna MD Work Phone: [facility] 12-10-2021 12:50-0400 Systolic blood pressure 119 mm[Hg] Merrill De Luna MD Work Phone: [facility] Encounters Encounter Date Encounter Type Care Provider Facility Start: 01-09-2023 Telephone encounter Merrill izaguirre MD Work Phone: Vascular Surg Dept Procedures Date Procedure Procedure Detail Performing Clinician Start: 04-05-2019 Mammography Merrill De Luna MD Work Phone: Plan of Treatment Date Care Activity Detail Author Start: 04-05-[address]24 [address] [facility] Start: 04-05-2024 PAP TESTING PAP TESTING [facility] Start: 01-31-2023 Influenza vaccination INFLUENZA (#1) [facility] Start: 12-10-2022 BP CONTROLLED (<130/80) BP CONTROLLED (<130/80) [facility] Start: 01-31-[address] [facility] Start: 09-18-2021 BP CONTROLLED (<130/80) BP CONTROLLED (<130/80) [facility] Start: 11-28-2020 3 comp foot exam completed DIABETIC FOOT EXAM [facility] Start: 2020 SHINGRIX VACCINE (1 of 2) SHINGRIX VACCINE (1 of 2) [facility] Start: 04-05-[address] [facility] Start: 03-02-2020 Hemoglobin A1c/Hemoglobin.total in Blood HBA1C [facility] Start: 2015 COLOGUARD (FIT-DNA) COLOGUARD (FIT-DNA) [facility] Start: [address] [facility] Start: 2015 COLORECTAL CANCER SCREENING COLORECTAL CANCER SCREENING [facility] Start: [address] [facility] Start: 2015 FECAL OCCULT BLOOD FECAL OCCULT BLOOD [facility] Start: [address] [facility] Start: 1989 Urine microalbumin profile DTAP,TDAP,TD (1 - Tdap) [facility] Start: 1988 ANNUAL PCP TEAM CHRONIC DISEASE VISIT ANNUAL PCP TEAM CHRONIC DISEASE VISIT [facility] Start: 1988 BP CONTROLLED (<130/80) BP CONTROLLED (<130/80) [facility] Start: 1988 Hepatitis B surface antibody level LDL CHOLESTEROL [facility] Start: 1988 HIV SCREENING HIV SCREENING [facility] Start: 1986 ONE PNEUMOVAX PRIOR TO AGE 65 ONE PNEUMOVAX PRIOR TO AGE 65 [facility] Start: 1980 Hepatitis B screening URINE ALBUMIN:CREATININE RATIO [facility] Start: 1980 Hepatitis C antibody, confirmatory test DILATED RETINAL EXAM [facility] Start: 1976 PNEUMOCOCCAL (1 - PCV) PNEUMOCOCCAL (1 - PCV) [facility] Start: 1975 COVID-19 VACCINE (1) COVID-19 VACCINE (1) [facility] Start: 1970 COVID-19 VACCINE (#1) COVID-19 VACCINE (#1) [facility] End: 08-31-2022 PVR ANK/[place]/TOE [facility] PVR ANK/[place]/TOE [facility] Vascular Lab Routine Aortic mural thrombus (HCC) 1 Occurrences starting 08/31/2021 until 08/31/2022 [facility] Work Phone: Payers Date Payer Category Payer Unknown [employer] PPO [id number] 2021-Present [phone] [address] [place] [address] PPO [id number] 2021 Unknown [employer] PPO [id number] 2021-Present [phone] [address] [place] [address] PPO [id number] 2020 Unknown [employer] ERRED [employer] [facility] [id number] 2020-Present [phone] [address] [address] [place] [address] Indemnity [id number] 2016 Unknown [id number] 1970 Unknown [id number] 1 1970 Unknown [id number] 1 1970 Unknown [id number] 1 1970 Unknown [id number] 1 1970 Unknown [id number] 1 1970 Unknown [id number] 1 1970 Unknown [id number] 1 1970 Unknown [id number] 1 1970 Unknown [id number] 4 Social History Date Type Detail Facility Start: 12-04-2019 Tobacco smoking status NHIS Ex-smoker [facility] Work Phone: Start: 12-04-2019 Tobacco use and exposure Smokeless tobacco non-user [facility] Work Phone: Start: 09-18-2020 End: 12-10-2021 Alcohol intake Ex-drinker (finding) [facility] Start: 04-05-2019 End: 11-30-2019 History SDOH Alcohol Frequency 1 [facility] Start: 11-30-2019 History SDOH Financial 5 [facility] Start: 11-30-2019 History SDOH Transport Non-Med 2 [facility] Start: 12-04-2019 Tobacco Comment quit [address] [facility] Start: 1970 Sex Assigned At Not on file [facility] Start: 1970 Sex Assigned At Female [facility] History of tobacco use Current smoker [facility] Work Phone: Start: 04-05-2019 End: 06-30-2022 History of Social function [facility] Work Phone: Start: 04-05-2019 End: 06-30-2022 Alcohol Use Disorder Identification Test - Consumption [AUDIT-C] [facility] Work Phone: How often to you hav e a drink containing alcohol? Never [facility] Work Phone: Average Number of Drinks Not on file [facility] Work Phone: (I/We) worried ronen er (my/our) food would run out before (I/we) got money to buy more. Never true [facility] Work Phone: Start: 11-23-2021 Gender identity Identifies as female gender (finding) [facility] Start: 11-23-2021 Sexual orientation Heterosexual (finding) [facility] Medical Equipment Procedure Code Equipment Code Equipment Origin al Text Equipment Identifier Dates Stent Protege Gp s Exprt 14mm .079in Large Diameter Nitinol 30mm 120cm - [id number] Start: 12-04-2019 Start: 12-08-2019 Note 01-09-2023 [...] be sent to her doctor. Gisele Arriola [facility] Sales Representative documented in this encounter [facility] History of Present illness Narrative 12-10-2021 Merrill De Luna MD - 12/10/2021 2:00 PM EDT Note Date & Type Note Facility 12-10-2021 History of Presen t illness Narrative Images from the original note were not included. DATE: 12/04/2019 SURGEON: Merrill De Luna M.D. SURGERY: First order aortic access on the right x2. First order aortic access on the left x1. 5-Ghanaian sheath on the left, 5-Ghanaian sheath on the right, 8- Ghanaian sheath up sized to a 20-Ghanaian sheath on the right. Mechanical thrombectomy with CATD of aortoiliac segment. Nitish embolectomy of aortoiliac segment from the right groin with a 20-Ghanaian sheath. Right iliac embolectomy. Left SFA and [...] than 70. [facility]PART[facility] OF VASCULAR SURGERY OUTPATIENT VISIT DATE [...] tomorrow pending result of imaging Atherosclerosis of inaja artery of both lower extremities with intermittent [...] for INR goal 2-3 blood sugar diagnostic (Vyclone VERIO TEST STRIPS) test strip Use as [...] subcutaneously three times daily before meals. Insulin [place], Disposable, (BD ULTRA-FINE [place] PEN NEEDLE) 32 gauge x 5/32 1 Each three times daily before meals. lancets (Vyclone DELGigabit Squared PLUS LANCET) 33 gauge 1 Each three times daily. insulin lispro (HUMALOG) 100 unit/mL injection Inject 0-10 Units subcutaneously daily at bedtime. ADMINISTER CORRECTIONAL INSULIN REGARDLESS OF MEAL OR NUTRITION INTAKEScale 2If Blood Glucose (mg/dL) is:Less than 110 Give 0 [id number] Give 0 -557 Give 2 [id number] Give 4 -472 Give 6 [id number] Give 8 [id number] Give 10 unitsGreater than 400 Give 10 [...] Medical Decision Making documented in this encounter [facility] Evaluation note 12-10-2021 Note Date & Type Note Facility documented in this encounter [facility] Evaluation note Note Date & Type Note Facility documented in this encounter [facility] Reason for referral (narrative) Outpatient Procedure (Routine) - Pending Review Note Date & Type Note Facility Referral ID Status Reason Start Date Expiration Date Visits Requested Visits Authorized [id number] Pending Review Auto-Generat ed Referral 08/31/2021 08/31/2022 1 1 * Outpatient Procedure (Routine) - Pending Review Specialty Diagnoses / Procedures Referred By Contac t Referred To Contact [facility] Diagnoses Aortic mural thrombus (HCC) Procedures US FEMORAL ARTERY [facility] DUP-SCAN LXTR ART/ARTL BPGS COMPL BI STUDY Merrill De Luna MD [address] [place] [address] [address] Referral ID Status Reason Start Date Expiration Date Visits Requested Visits Authorized [id number] Pending Review Auto-Generat ed Referral 08/31/2021 08/31/2022 1 1 * Outpatient Procedure (Routine) - Pending Review Specialty Diagnoses / Procedures Referred By Contac t Referred To Contact [facility] Diagnoses Aortic mural thrombus (HCC) Procedures US ABD AORTA COMPLETE VAS LAB DUP-SCAN AORTA IVC ILIAC VASCL/BPGS COMPLETE Merrill De Luna MD [address] [place] [address] [address] Referral ID Status Reason Start Date Expiration Date Visits Requested Visits Authorized [id number] Pending Review Auto-Generat ed Referral 08/31/2021 08/31/2022 1 1 * Outpatient Procedure (Routine) - Pending Review Specialty Diagnoses / Procedures Referred By Contac t Referred To [facility] [place] Diagnoses Aortic mural thrombus (HCC) Procedures US LEG ARTERIAL PERIPH LIZ [facility] DUP-SCAN LXTR ART/ARTL BPGS COMPL BI STUDY Merrill De Luna MD [address] [place] [address] [place] [address] [place] [address] Referral ID Status Reason Start Date Expiration Date Visits Requested Visits Authorized [id number] Pending Review Auto-Generat ed Referral 08/31/2021 08/31/[address] 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 the event this information is protected by the Federal Confidentiality of Alcohol and Drug Abuse Patient Records regulations: The Federal rules restrict any use of the information to criminally investigate or prosecute any alcohol or drug abuse patient.[facility] the event this information is protected by the Federal Confidentiality of Alcohol and Drug Abuse Patient Records regulations: The Federal rules restrict any use of the information to criminally investigate or prosecute any alcohol or drug abuse patient.[facility] Care Teams (unrecognized sec tion and content) Conference Center Coordinator Relationship Specialty Start Date End Date Shashank Tai Chi [address] [facility] [address] [place], [place] [id number] PCP - General Gerontology 11/30/19 Todd Tabor MD Family Practice 04/01/19 Conference Center Coordinator Relationship Specialty Start Date End Date ZaireShashank Chi [address] [facility] [address] [place] [address] PCP - General Gerontology 11/30/19 Todd Tabor MD [address] [facility] [address] [place], [place] [id number] Family Medicine 04/01/19 Reason for Visit (unrecogniz ed section and content) Specialty Diagnoses / Procedures Referred By Contemi t Referred To Contact Vascular Surgery / VASCULAR SURGERY Diagnoses aortic mural thrombus yearly followup Procedures EST PATIENT Self, MD De Luna, Merrill Reilly, [address] [place] [address] Referral ID Status Reason Start Date Expiration Date Visits Re quested Visits Authorized [id number] Open 12/10/2021 03/10/2022 1 1 Reason Comments [...] BE BASED ON THE PRIMARY CLINICAL RECORDS. [employer] provides no warranty or guarantee of the accuracy or completeness of information in this document.
[2023-06-13 12:25] LABS: Absolute Lymphocyte Count 3.47 X10^3/uL (0.83-4.51); Absolute Neutrophil Count 9.3 X10^3/uL (2.0-7.7); Basophil# 0.15 X10^3/uL; Basophil% 1.1 % (0-1); Eosinophil# 0.12 X10^3/uL; Eosinophils% 0.8 % (0-5); Hematocrit 47.5 % (37-47); Hemoglobin 15.9 g/dL (12.0-15.0); Lymphocyte # 3.47 X10^3/ul (0.83-4.51); Lymphocyte % 24.4 % (19-41); Mean Corp Hgb Conc 33.5 g/dL (32-36); Mean Corpuscular Hgb 30.8 pg (27.0-32.0); Mean Corpuscular Volume 91.9 fL (81-99); Mean Platelet Vol. 9.7 fl (6.2-12.0); Monocyte# 1.05 X10^3/uL; Monocyte% 7.4 % (0-10); NRBC Flagged by Analyzer 0 % (0-5); Neutrophil # 9.28 X10^3/uL (2.7-7.7); Neutrophil % 65.1 % (47-70); Platelet Count 467 K/mm3 (150-450); RBC Distribution Width CV 13.6 % (11.6-14.6); RBC Distribution Width SD 46.6 fl (35.1-43.9); Red Blood Count 5.17 M/mm3 (4.2-5.4); White Blood Count 14.2 K/mm3 (4.4-11.0)
[2023-06-13 12:54] LABS: Anion Gap 11 (5-15); BUN 20 mg/dL (7-18); BUN/Creat Ratio 24.3 RATIO (10-20); Calcium,Total 9.3 mg/dL (8.5-10.1); Chloride 99 mmol/L (98-107); Creatinine, Serum 0.82 mg/dL (0.55-1.02); EST Glomerular Filtration Rate 77 mL/min (>60); Est Glom Filt Rate - Afr Amer 93 mL/min (>60); Glucose 267 mg/dL (74-106); Potassium 3.5 mmol/L (3.5-5.1); Sodium Level 133 mmol/L (136-145)
== END | disposition home or self-care (01) ==
LOC: POLAB3 11:32
PROVIDERS: PCP Family Medicine Geriatric Medicine; Visit Provider Family Medicine Geriatric Medicine
DX: Z13.89 Encounter for screening for other disorder (principal)
CPT/HCPCS: 36415; 80048; 85025

== ENCOUNTER 2023-06-26 18:25 | Emergency (ER) | payer BC, SELFPAY ==
[2023-06-26 18:26] VITALS: BP 128/85; PULSE 115; RESP 18; TEMP 36.6; O2SAT 100; BMI 27.3
[2023-06-26 18:38] VITALS: BP 130/76; PULSE 95; RESP 14; O2SAT 99
--- NOTE | 2023-06-26 18:43 | CT_ITS ---
INDICATION: pain EXAMINATION: CTA CHEST, ABDOMEN AND PELVIS WITH CONTRAST - TECHNIQUE: A CTA of the chest, abdomen, and pelvis is obtained with sagittal and coronal reconstructed MIP views. Three-dimensional surface rendered sequence of the thoracic and abdominal aorta was obtained. A radiation dose optimization technique was used for this scan. mL of Isovue-370. Oral contrast: None. COMPARISON: None. FINDINGS: CT CHEST: THORACIC AORTA: No atheromatous disease, no aneurysmal changes or dissection. ABDOMINAL AORTA: No aneurysm or dissection. No significant atheromatous disease. The iliac arteries are unremarkable. LUNGS: The lungs are well-expanded without acute or chronic changes. No effusions or pneumothorax. MEDIASTINUM: The thyroid gland is normal. No mediastinal or hilar adenopathy. HEART: Heart is normal size. No pericardial effusion. No CAD. CT ABDOMEN AND PELVIS: LIVER: Nonspecific fatty infiltrated liver without mass or bile duct dilatation.. GALLBLADDER: The CBD is normal. Gallbladder has been removed SPLEEN: Normal. PANCREAS: No masses or inflammation. ADRENAL GLANDS: Normal. KIDNEYS AND URETERS: The kidneys both enhance appropriately. There is deformity of the left kidney consistent with a partial nephrectomy.. No hydronephrosis or nephrolithiasis. No renal masses or cysts. STOMACH: Concentric thickening of the cantu of the stomach which may be consistent with nonspecific gastritis. SMALL BOWEL: No abnormal distention of the small bowel. MESENTERY: No mesenteric inflammation. No ascites. COLON: No significant diverticulosis, masses or inflammation. The colon otherwise is normal. There is a large fatty ileocecal valve. APPENDIX: No evidence for acute appendicitis.. IVC: Normal. There is a stent within the distal abdominal aorta. RETROPERITONEUM: No retroperitoneal lymphadenopathy. PELVIC STRUCTURES: Poorly distended thick walled bladder likely of no significance SOFT TISSUES ABDOMEN: The anterior abdominal wall is normal. SOFT TISSUE CHEST: The extrathoracic soft tissues are normal. BONES: No fractures or significant degenerative disease. CT/CTA Chst, Abd, Pel W and/or WO IMPRESSION: Normal contrast-enhanced CT of the chest. Findings which may be consistent with nonspecific gastritis. Status post cholecystectomy. Distal abdominal aortic stent. No evidence for aortic dissection. Electronically Signed: Scott Lugo MD at 19:36 EST ,
--- NOTE | 2023-06-26 18:45 | EDS_ITS ---
HPI History of Present Illness Chief Complaint: Chest Pain Informant: patient Narrative Narrative: Patient presents with multiple complaints. She reports feeling short of breath along with having epigastric pain and nausea. She states the nausea is been ongoing for quite some time. She has had some left posterior shoulder pain as well as some pain on her right lower quadrant. Patient was seen earlier this month and diagnosed with colitis. Her C. difficile test was negative. She completed a full course of Cipro and Flagyl. She saw her primary care physician today who had lab work obtained. They are waiting insurance approval for imaging studies. Patient states she did not feel well at work tonight and the nurse that her company thought she should come in to be evaluated. 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 Bruising Chronic cough Contact with or exposure to other viral diseases Contraceptive management Depression Diabetes mellitus DVT (deep venous thrombosis) Easy bruising Excessive bleeding Gastric reflux History of echocardiogram History of kidney stones Injury of head and neck Leg cramps Leukocytosis Menorrhagia with irregular cycle Migraine headache Multifocal pneumonia Sleep apnea Smoker URI (upper respiratory infection) Wears dentures Wears glasses Home Medications metformin 500 mg tablet 1,000 mg PO BID diabetes 02/28/14 [History Last Taken 11/26/19 16:00] atorvastatin 40 mg tablet 80 mg PO DAILY cholesterol 11/26/19 [History Last Taken 11/25/19] clopidogrel 75 mg tablet 75 mg PO DAILY 12/14/19 [History Last Taken 07/05/22] warfarin 5 mg tablet 7 mg PO DAILY DVT 12/14/19 [History Last Taken 07/05/22] biotin 5,000 mcg disintegrating tablet 10,000 mcg PO DAILY 04/03/20 [History Last Taken Unknown] pantoprazole 40 mg tablet,delayed release 40 mg PO DAILY 04/03/20 [History Last Taken 07/09/22] doxepin 10 mg capsule 10 mg PO PRN PRN Sleep 12/14/20 [History Last Taken Unknown] escitalopram oxalate 20 mg tablet (Lexapro) 20 mg PO DAILY 12/14/20 [History Last Taken Unknown] bupropion HCl 150 mg tablet,12 hr sustained-release 150 mg PO BID 07/05/22 [History Last Taken Unknown] valsartan 160 mg tablet 160 mg PO DAILY 07/05/22 [History Last Taken 07/09/22] sennosides 8.6 mg-docusate sodium 50 mg tablet (Senexon-S) 1 tab PO BID PRN Constipation 11/25/22 [History Last Taken Unknown] dapagliflozin propanediol 10 mg tablet (Farxiga) 10 mg PO DAILY 05/15/23 [History Last Taken Unknown] pioglitazone 30 mg tablet 30 mg PO DAILY Diabetes 05/15/23 [History Last Taken Unknown] levofloxacin 750 mg tablet 750 mg PO DAILY #5 tabs 05/17/23 [Rx Last Taken Unknown] ciprofloxacin HCl 500 mg tablet 500 mg PO BID #20 TABLETS 06/10/23 [Rx Last Taken Unknown] metronidazole 500 mg tablet 500 mg PO Q6H #40 tabs 06/10/23 [Rx Last Taken Unknown] ondansetron 4 mg disintegrating tablet 4 mg PO Q8H PRN PRN Nausea #10 tabs 06/26/23 [Rx Last Taken Unknown] Allergy/AdvReac Type Severity Reaction Status Date / Time latex Allergy Mild rash Verified 06/26/23 18:26 Penicillins [PCN] Allergy Hives Verified 06/26/23 18:26 Family History Brother Diabetes Father Diabetes Mother Diabetes Uncle Diabetes Skin cancer Colon cancer Uncle Diabetes Aunt Breast cancer Surgical History H/O lithotripsy H/O tubal ligation History of embolectomy History of esophagogastroduodenoscopy (EGD) Hx of cholecystectomy Hx of partial nephrectomy Status post endometrial ablation Social History household members: family current occupational status: employed current occupation: [employer] history of recent travel: No sexually active: No Smoking Status: Current every day smoker tobacco type: cigarettes alcohol intake: never substance use type: does not use what type of physical activity do you participate in: other seatbelt use: always do you feel safe at home: Yes additional social history: single ROS ROS ED Constitutional Constitutional ED: Denies chills or fever(s) Eyes Eyes: Denies discharge from eye(s) ENT ENT ED: Denies discharge from eye(s), rhinorrhea or sore throat Cardiovascular Cardiovascular: Reports chest pain; Denies palpitations Respiratory/Chest Respiratory/Chest: Reports dyspnea; Denies cough Gastrointestinal Gastrointestinal: Reports abdominal pain and nausea; Denies diarrhea or vomiting Musculoskeletal Musculoskeletal: Reports back pain; Denies extremity pain Integumentary Denies Abrasions or rash Neurologic Neurologic: Reports weakness; Denies headache(s) Psychiatric Psychiatric: Denies anxiety or depression Allergic/Immunologic Allergic/Immunologic ED: Denies lip swelling or urticaria EXAM Physical Exam Const Vital Signs: 06/26/23 18:26 06/26/23 18:38 06/26/23 18:38 Temperature 97.8 F Temperature Source Temporal Pulse Rate 115 H 95 Respiratory Rate 18 14 Respiratory Effort Normal Blood Pressure 128/85 H 130/76 H Blood Pressure Mean 99 94 Pulse Ox 100 99 Oxygen Delivery Method Room Air Room Air 06/26/23 21:20 Temperature Temperature Source Pulse Rate 88 Respiratory Rate 16 Respiratory Effort Blood Pressure 133/79 H Blood Pressure Mean 97 Pulse Ox 100 Oxygen Delivery Method Room Air Positive well nourished and well developed General Appearance ED: well developed HEENT Reports moist mucous membranes Eyes EOMs intact bilaterally Chest Wall inspection of chest normal and palpation of chest normal Resp normal respiratory effort and clear to auscultation bilaterally Cardio regular rate and regular rhythm GI GI Narrative: Abdomen soft with mild tenderness in the epigastrium as well as the right lower quadrant. No guarding or rebound. Extremity normal to inspection Neuro oriented x3 and no sensory deficits noted Motor Exam: strength 5/5 throughout Psych mental status grossly normal Skin no rashes or lesions noted MDM MDM MDM Narrative Medical decision making narrative: Patient had lab work drawn earlier today. White blood cell count is 12.1 with normal differential. Hemoglobin 15.5. Chemistry studies significant for glucose of 183. Normal renal function. LFTs unremarkable. At this time we will add on a troponin and an INR. She will undergo CTA of the chest, abdomen, and pelvis. Patient is on quality assurance monitor chassis and EKG has been obtained. She will be ordered Zofran for nausea. History & Record Review Discussion w/independent historian: Patient Additional record(s) reviewed:: Prior outpatient record, Prior ED visit and Prior labs Lab Data Attestation: I reviewed the patient's lab results. Labs: Laboratory Results - last 24 hr 06/26/23 06/26/23 18:36 20:32 PT 43.8 H INR 4.5 H* Troponin I High Sens 4 Radiography Diagnostic Testing: Clinical Impression(s) from Imaging Studies Chest/Abdomen/Pelvis CTA 06/26/23 18:43 IMPRESSION: Normal contrast-enhanced CT of the chest. Findings which may be consistent with nonspecific gastritis. Status post cholecystectomy. Distal abdominal aortic stent. No evidence for aortic dissection. Electronically Signed: Scott Lugo MD at 19:36 EST Reading Location ID and State: [facility] / [place] Tel , Service support , EKG Initial EKG: Attestation: I personally reviewed and interpreted this EKG as follows: Interpretation: Sinus Tachycardia (Sinus tachycardia at 110. No acute ischemia.) Treatment and Re-Evaluation :: Patient's lab work from earlier today is reviewed. Her INR tonight is elevated at 4.5. She states that was checked in the office today and was just over 6. She was already instructed to hold her Coumadin for the next couple days. Her troponin tonight is normal at 4. CTA of the chest, abdomen, and pelvis reveals findings consistent with gastritis. There is a distal abdominal aortic stent. No evidence of dissection. Patient is prescribed pantoprazole, but states that she has not been able to take it regularly because she does not feel that her medicine at stays down given her nausea. I will write her prescription for Zofran. She is to follow- up with her primary care physician as planned. Discharge Plan Triage Chief Complaint: Chest Pain ED Provider: Lolis Ladd Dx/Rx/DC Orders Clinical Impression: Epigastric pain, Vomiting Instructions: ED Vomiting (Adult), ED Epigastric Pain Uncertain Cause Prescriptions: New ondansetron 4 mg tablet,disintegrating 4 mg PO Q8H PRN PRN (Reason: Nausea) Qty: 10 0RF No Action metformin 500 MG tablet 1,000 mg PO BID Patient Comments: atorvastatin 40 MG tablet 80 mg PO DAILY clopidogrel 75 MG tablet 75 mg PO DAILY warfarin 5 MG tablet 7 mg PO DAILY pantoprazole 40 MG tablet 40 mg PO DAILY biotin 5,000 MCG tablet,disintegrating 10,000 mcg PO DAILY sennosides-docusate sodium [Senexon-S] 8.6-50 mg tablet 1 tab PO BID PRN (Reason: Constipation) doxepin 10 mg capsule 10 mg PO PRN PRN (Reason: Sleep) escitalopram oxalate [Lexapro] 20 mg tablet 20 mg PO DAILY Patient Comments: TAKE 1 TABLET BY MOUTH EVERY DAY bupropion HCl 150 mg tablet sustained-release 12 hr 150 mg PO BID Patient Comments: TAKE 1 TABLET ORALLY TWICE PER DAY FOR 90 DAYS valsartan 160 mg tablet 160 mg PO DAILY Patient Comments: TAKE 1 TABLET BY MOUTH EVERY DAY Farxiga 10 mg tablet 10 mg PO DAILY pioglitazone 30 mg tablet 30 mg PO DAILY Patient Comments: TAKE 1 TABLET ORALLY ONCE PER DAY FOR 30 DAYS levofloxacin 750 mg tablet 750 mg PO DAILY Qty: 5 0RF metronidazole [metronidazole] 500 mg tablet 500 mg PO Q6H Qty: 40 0RF ciprofloxacin HCl [ciprofloxacin HCl] 500 mg tablet 500 mg PO BID Qty: 20 0RF Primary Care Provider: Shashank Tai Chi Referrals: Shashank Tai Chi, MD [Primary Care Provider] - 1 Week Disposition Disposition: Home, Self Care
--- OUTSIDE RECORDS SUMMARY | 2023-06-26 18:47 | XMS RPT_ITS | CCD ---
Author Name Unknown Address [address] [place] [address] Organization [facility] Care Team Providers Care Services Tech Name Role Phone SUHA RUSSELL CNP Admitting [...] Unavailable Shashank Tai Chi Primary Care Provider [phone] Todd Tabor MD Unavailable Shashank Tai Chi Primary Care Provider Todd Tabor MD Allergies Allergy Classification Reported Allergen(s) Allergy Type Date of Onset Reaction(s) Facility (1 source) Penicillins Drug allergy (disorder) [facility] (2 sources) Penicillins Drug Allergy 03-14-2014 Rash, Unknown [facility] (4 sources) Penicillins Drug Allergy 03-14-2014 Rash, Unknown [facility] Medications Completed/Discontinued Medications Medication Drug Class(es) [...] and due to atherosclerosis; Translations: [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, bilateral [...] mm[Hg] Merrill De Luna MD Work Phone: [facility] 12-10-2021 12:50-0400 Heart rate 66 /min Merrill De Luna MD Work Phone: [facility] 12-10-2021 12:50-0400 Systolic blood pressure 119 mm[Hg] Merrill De Luna MD Work Phone: [facility] Encounters Encounter Date Encounter Type Care Provider Facility Start: 01-09-2023 Telephone encounter Merrill izaguirre MD Work Phone: Vascular Surg Dept Procedures Date Procedure Procedure Detail Performing Clinician Start: 04-05-2019 Mammography Merrill De Luna MD Work Phone: Plan of Treatment Date Care Activity Detail Author Start: 04-05-2024 HPV TESTING HPV TESTING [facility] Start: 04-05-2024 PAP TESTING PAP TESTING [facility] Start: 01-31-2023 Influenza vaccination INFLUENZA (#1) [facility] Start: 12-10-2022 BP CONTROLLED (<130/80) BP CONTROLLED (<130/80) [facility] Start: 01-31-2022 Influenza vaccination [facility] Start: 09-18-2021 BP CONTROLLED (<130/80) BP CONTROLLED (<130/80) [facility] Start: 11-28-2020 3 comp foot exam completed DIABETIC FOOT EXAM [facility] Start: 2020 SHINGRIX VACCINE (1 of 2) SHINGRIX VACCINE (1 of 2) [facility] Start: 04-05-2020 Mammography MAMMOGRAM [facility] Start: 03-02-2020 Hemoglobin A1c/Hemoglobin.total in Blood HBA1C [facility] Start: 2015 COLOGUARD (FIT-DNA) COLOGUARD (FIT-DNA) [facility] Start: 2015 Colonoscopy COLONOSCOPY [facility] Start: 2015 COLORECTAL CANCER SCREENING COLORECTAL CANCER SCREENING [facility] Start: [address] COLONOGRAPHY [facility] Start: 2015 FECAL OCCULT BLOOD FECAL OCCULT BLOOD [facility] Start: 2015 SIGMOIDOSCOPY SIGMOIDOSCOPY [facility] Start: 1989 Urine microalbumin profile DTAP,TDAP,TD (1 - Tdap) [facility] Start: 1988 ANNUAL PCP TEAM CHRONIC DISEASE VISIT ANNUAL PCP TEAM CHRONIC DISEASE VISIT [facility] Start: 1988 BP CONTROLLED (<130/80) BP CONTROLLED (<130/80) [facility] Start: 1988 Hepatitis B surface antibody level LDL CHOLESTEROL [facility] Start: 1988 HIV SCREENING HIV SCREENING [facility] Start: 1986 ONE PNEUMOVAX PRIOR TO AGE 65 ONE PNEUMOVAX PRIOR TO AGE 65 [facility] Start: 1980 Hepatitis B screening URINE ALBUMIN:CREATININE RATIO [facility] Start: 1980 Hepatitis C antibody, confirmatory test DILATED RETINAL EXAM [facility] Start: 1976 PNEUMOCOCCAL (1 - PCV) PNEUMOCOCCAL (1 - PCV) [facility] Start: 1975 COVID-19 VACCINE (1) COVID-19 VACCINE (1) [facility] Start: 1970 COVID-19 VACCINE (#1) COVID-19 VACCINE (#1) [facility] End: 08-31-2022 PVR ANK/[place]/TOE [facility] PVR ANK/[place]/[facility]E [facility] Vascular Lab Routine Aortic mural thrombus (HCC) 1 Occurrences starting 08/31/2021 until 08/31/2022 [facility] Work Phone: Payers Date Payer Category Payer Unknown [employer] PPO [id number] 2021-Present [phone] [address] [place] [address] PPO [id number] 2021 Unknown [employer] PPO [id number] 2021-Present [phone] [address] [place] [address] PPO [id number] 2020 Unknown [employer] [id number] 2020-Present [phone] [address] [address] [place] [address] Indemnity [id number] 2016 Unknown [id number] 1970 Unknown [id number] 1 1970 Unknown [id number] 1 1970 Unknown [id number] 1 1970 Unknown [id number] 1 1970 Unknown [id number] 1 1970 Unknown [id number] 1 1970 Unknown [id number] 1 1970 Unknown [id number] 1 1970 Unknown [id number] 4 Social History Date Type Detail Facility Start: 12-04-2019 Tobacco smoking status NHIS Ex-smoker [facility] Work Phone: Start: 12-04-2019 Tobacco use and exposure Smokeless tobacco non-user [facility] Work Phone: Start: 09-18-2020 End: 12-10-2021 Alcohol intake Ex-drinker (finding) [facility] Start: 04-05-2019 End: 11-30-2019 History SDOH Alcohol Frequency 1 [facility] Start: 11-30-2019 History SDOH Financial 5 [facility] Start: 11-30-2019 History SDOH Transport Non-Med 2 [facility] Start: 12-04-2019 Tobacco Comment quit 1 month ago [facility] Start: 1970 Sex Assigned At Not on file [facility] Start: 1970 Sex Assigned At Female [facility] History of tobacco use Current smoker [facility] Work Phone: Start: 04-05-2019 End: 06-30-2022 History of Social function [facility] Work Phone: Start: 04-05-2019 End: 06-30-2022 Alcohol Use Disorder Identification Test - Consumption [AUDIT-C] [facility] Work Phone: How often to you hav e a drink containing alcohol? Never [facility] Work Phone: Average Number of Drinks Not on file [facility] Work Phone: (I/We) worried ronen er (my/our) food would run out before (I/we) got money to buy more. Never true [facility] Work Phone: Start: 11-23-2021 Gender identity Identifies as female gender (finding) [facility] Start: 11-23-2021 Sexual orientation Heterosexual (finding) [facility] Medical Equipment Procedure Code Equipment Code Equipment Origin al Text Equipment Identifier Dates Stent Protege Gp s Exprt 14mm .079in Large Diameter Nitinol 30mm 120cm - [id number] Start: 12-04-2019 Start: 12-08-2019 Note 01-09-2023 [...] be sent to her doctor. Gisele Arriola Head Animal Trainer documented in this encounter [facility] History of Present illness Narrative 12-10-2021 Merrill De Luna MD - 12/10/2021 2:00 PM EDT Note Date & Type Note Facility 12-10-2021 History of Presen t illness Narrative Images from the original note were not included. DATE: 12/04/2019 SURGEON: Merrill De Luna M.D. SURGERY: First order aortic access on the right x2. First order aortic access on the left x1. 5-Libyan sheath on the left, 5-Libyan sheath on the right, 8- Libyan sheath up sized to a 20-Libyan sheath on the right. Mechanical thrombectomy with CATD of aortoiliac segment. Nitish embolectomy of aortoiliac segment from the right groin with a 20-Libyan sheath. Right iliac embolectomy. Left SFA and [...] than 70. Heart , Vascular and Thoracic [place] [facility]PART[facility] OF VASCULAR SURGERY OUTPATIENT VISIT DATE [...] tomorrow pending result of imaging Atherosclerosis of prairie band artery of both lower extremities with intermittent [...] for INR goal 2-3 blood sugar diagnostic ([employer] VERIO TEST STRIPS) test strip Use as [...] subcutaneously three times daily before meals. Insulin [place], Disposable, (BD ULTRA-FINE PORTIA PEN NEEDLE) 32 gauge x 5/32 1 Each three times daily before meals. lancets ([employer] DELIron Will [employer] PLUS LANCET) 33 gauge 1 Each three times daily. insulin lispro (HUMALOG) 100 unit/mL injection Inject 0-10 Units subcutaneously daily at bedtime. ADMINISTER CORRECTIONAL INSULIN REGARDLESS OF MEAL OR NUTRITION INTAKEScale 2If Blood Glucose (mg/dL) is:Less than 110 Give 0 [id number] Give 0 -600 Give 2 [id number] Give 4 [id number] Give 6 [id number] Give 8 [id number] Give 10 unitsGreater than 400 Give 10 [...] Medical Decision Making documented in this encounter [facility] Evaluation note 12-10-2021 Note Date & Type Note Facility documented in this encounter [facility] Evaluation note Note Date & Type Note Facility documented in this encounter [facility] Reason for referral (narrative) Outpatient Procedure (Routine) - Pending Review Note Date & Type Note Facility Referral ID Status Reason Start Date Expiration Date Visits Requested Visits Authorized [id number] Pending Review Auto-Generat ed Referral 08/31/2021 08/31/2022 1 1 * Outpatient Procedure (Routine) - Pending Review Specialty Diagnoses / Procedures Referred By Contac t Referred To Contact [facility] Diagnoses Aortic mural thrombus (HCC) Procedures US FEMORAL ARTERY LIZ [facility] DUP-SCAN LXTR ART/ARTL BPGS COMPL BI STUDY Merrill De Luna MD [address] [place] [address] [address] Referral ID Status Reason Start Date Expiration Date Visits Requested Visits Authorized [id number] Pending Review Auto-Generat ed Referral 08/31/2021 08/31/2022 1 1 * Outpatient Procedure (Routine) - Pending Review Specialty Diagnoses / Procedures Referred By Contac t Referred To Contact [facility] Diagnoses Aortic mural thrombus (HCC) Procedures US ABD AORTA COMPLETE VAS LAB DUP-SCAN AORTA IVC ILIAC VASCL/BPGS COMPLETE Merrill De Luna MD [address] [place] [address] [address] Referral ID Status Reason Start Date Expiration Date Visits Requested Visits Authorized [id number] Pending Review Auto-Generat ed Referral 08/31/2021 08/31/2022 1 1 * Outpatient Procedure (Routine) - Pending Review Specialty Diagnoses / Procedures Referred By Contac t Referred To [facility] [place] Diagnoses Aortic mural thrombus (HCC) Procedures US LEG ARTERIAL PERIPH LZI VAS LAB DUP-SCAN LXTR ART/ARTL BPGS COMPL BI STUDY Merrill De Luna MD [address] [place] [address] [place] [address] [place] [address] Referral ID Status Reason Start Date Expiration Date Visits Requested Visits Authorized [id number] Pending Review Auto-Generat ed Referral 08/31/2021 08/31/2022 1 1 [facility] Summary Purpose Family History No Family History Records FoundNo Family History Records FoundNo Family History Records FoundNo Family History Records Found Advance Directives No Advanced Directives Records FoundDocuments on File Type Date Recorded 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 Advance Directive(s) 11/30/2019 2:17 PM Latest Code Status on File Code Status Date Activated Date Inactivated Comments Full Code 12/01/2019 11:29 PM 12/08/2019 3:50 PM Full Code Order Discussed With: Patient Documents on File Type Date Recorded 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 Advance Directive(s) 11/30/2019 2:17 [...] DATE CREATED AUTHOR AUTHOR'S ORGANIZ ATION 01/14/2019 [facility] DATE CREATED AUTHOR AUTHOR'S ORGANIZ ATION 01/13/2020 [facility] DATE CREATED AUTHOR AUTHOR'S ORGANIZ ATION 01/25/2023 [facility] Source Comments (unrecognize d section and content) In the event this informatio n is protected by the Federal Confidentiality of Alcohol and Drug Abuse Patient Records regulations: The Federal rules restrict any use of the information to criminally investigate or prosecute any alcohol or drug abuse patient.[facility] the event this information is protected by the Federal Confidentiality of Alcohol and Drug Abuse Patient Records regulations: The Federal rules restrict any use of the information to criminally investigate or prosecute any alcohol or drug abuse patient.[facility] the event this information is protected by the Federal Confidentiality of Alcohol and Drug Abuse Patient Records regulations: The Federal rules restrict any use of the information to criminally investigate or prosecute any alcohol or drug abuse patient.[facility] Care Teams (unrecognized sec tion and content) Services Tech Relationship Specialty Start Date End Date Shashank Tai Chi [address] [facility] [address] [place], [place] [id number] PCP - General Gerontology 11/30/19 Todd Tabor MD Family Practice 04/01/19 Services Tech Relationship Specialty Start Date End Date ZaireShashank Chi [address] [facility] [place] [address] PCP - General Gerontology 11/30/19 Todd Tabor MD [address] [facility] [place], [place] [id number] Family Medicine 04/01/19 Reason for Visit (unrecogniz ed section and content) Specialty Diagnoses / Procedures Referred By Contemi t Referred To Contact Vascular Surgery / VASCULAR SURGERY Diagnoses aortic mural thrombus yearly followup Procedures EST PATIENT Self, MD De Luna, Merrill Reilly, [address] [place] [address] Referral ID Status Reason Start Date Expiration Date Visits Re quested Visits Authorized [id number] Open 12/10/2021 03/10/2022 1 1 Reason Comments [...] BE BASED ON THE PRIMARY CLINICAL RECORDS. [employer] provides no warranty or guarantee of the accuracy or completeness of information in this document.
[2023-06-26] MEDS: Ondansetron 4 MG/2 ML Vial IV (18:55)
[2023-06-26 19:47] LABS: Prothrombin Time (Protime)PT. 43.8 SECONDS (11.7-14.9)
[2023-06-26 19:57] LABS: International Normalized Ratio 4.5
[2023-06-26 21:14] LABS: Troponin-I HS 4 pg/mL (3.0-54.0)
[2023-06-26 21:20] VITALS: BP 133/79; PULSE 88; RESP 16; O2SAT 100
[2023-06-26 21:36] VITALS: BP 133/79; PULSE 83; RESP 20; O2SAT 97
== END 2023-06-26 22:40 | disposition home or self-care (01) ==
PROVIDERS: Emergency Provider Emergency Medicine; PCP Family Medicine Geriatric Medicine; Visit Provider Emergency Medicine
DX: R10.13 Epigastric pain (principal); R11.10 Vomiting, unspecified; G47.30 Sleep apnea, unspecified; F17.210 Nicotine dependence, cigarettes, uncomplicated; Z86.718 Personal history of other venous thrombosis and embolism
CPT/HCPCS: 71275; 74174; 84484; 85610; 93005; 96374; 99284; Q9967; A4216; J2405

== ENCOUNTER → 2023-06-26 | Outpatient (CLI) | payer BC, SELFPAY ==
--- OUTSIDE RECORDS SUMMARY | 2023-06-26 15:48 | XMS RPT_ITS | CCD ---
Author Name Unknown Address [address] [place] [address] Organization [facility] Care Team Providers Care Studio Designer Name Role Phone SUHA RUSSELL CNP Admitting [...] Unavailable Shashank Tai Chi Primary Care Provider [phone] Todd Tabor MD Allergies Allergy Classification Reported Allergen(s) Allergy Type Date of Onset Reaction(s) Facility (1 source) Penicillins Drug allergy (disorder) [facility] Repository (2 sources) Penicillins Drug Allergy 03-14-2014 Rash, Unknown [facility] (4 sources) Penicillins Drug Allergy 03-14-2014 Rash, Unknown [facility] Medications Completed/Discontinued Medications Medication Drug Class(es) [...] and due to atherosclerosis; Translations: [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, bilateral [...] mm[Hg] Merrill De Luna MD Work Phone: [facility] 12-10-2021 12:50-0400 Heart rate 66 /min Merrill De Luna MD Work Phone: [facility] 12-10-2021 12:50-0400 Systolic blood pressure 119 mm[Hg] Merrill De Luna MD Work Phone: [facility] Encounters Encounter Date Encounter Type Care Provider Facility Start: 01-09-2023 Telephone encounter Merrill izaguirre MD Work Phone: Vascular Surg Dept Procedures Date Procedure Procedure Detail Performing Clinician Start: 04-05-2019 Mammography Merrill De Luna MD Work Phone: Plan of Treatment Date Care Activity Detail Author Start: 04-05-2024 HPV TESTING HPV TESTING [facility] Start: 04-05-2024 PAP TESTING PAP TESTING [facility] Start: 01-31-2023 Influenza vaccination INFLUENZA (#1) [facility] Start: 12-10-2022 BP CONTROLLED (<130/80) BP CONTROLLED (<130/80) [facility] Start: 01-31-2022 Influenza vaccination [facility] Start: 09-18-2021 BP CONTROLLED (<130/80) BP CONTROLLED (<130/80) [facility] Start: 11-28-2020 3 comp foot exam completed DIABETIC FOOT EXAM [facility] Start: 2020 SHINGRIX VACCINE (1 of 2) SHINGRIX VACCINE (1 of 2) [facility] Start: 04-05-2020 Mammography MAMMOGRAM [facility] Start: 03-02-2020 Hemoglobin A1c/Hemoglobin.total in Blood HBA1C [facility] Start: 2015 COLOGUARD (FIT-DNA) COLOGUARD (FIT-DNA) [facility] Start: 2015 Colonoscopy COLONOSCOPY [facility] Start: 2015 COLORECTAL CANCER SCREENING COLORECTAL CANCER SCREENING [facility] Start: [address] COLONOGRAPHY [facility] Start: 2015 FECAL OCCULT BLOOD FECAL OCCULT BLOOD [facility] Start: 2015 SIGMOIDOSCOPY SIGMOIDOSCOPY [facility] Start: 1989 Urine microalbumin profile DTAP,TDAP,TD (1 - Tdap) [facility] Start: 1988 ANNUAL PCP TEAM CHRONIC DISEASE VISIT ANNUAL PCP TEAM CHRONIC DISEASE VISIT [facility] Start: 1988 BP CONTROLLED (<130/80) BP CONTROLLED (<130/80) [facility] Start: 1988 Hepatitis B surface antibody level LDL CHOLESTEROL [facility] Start: 1988 HIV SCREENING HIV SCREENING [facility] Start: 1986 ONE PNEUMOVAX PRIOR TO AGE 65 ONE PNEUMOVAX PRIOR TO AGE 65 [facility] Start: 1980 Hepatitis B screening URINE ALBUMIN:CREATININE RATIO [facility] Start: 1980 Hepatitis C antibody, confirmatory test DILATED RETINAL EXAM [facility] Start: 1976 PNEUMOCOCCAL (1 - PCV) PNEUMOCOCCAL (1 - PCV) [facility] Start: 1975 COVID-19 VACCINE (1) COVID-19 VACCINE (1) [facility] Start: 1970 COVID-19 VACCINE (#1) COVID-19 VACCINE (#1) [facility] End: 08-31-2022 PVR ANK/[place]/TOE [facility] PVR ANK/[place]/TOE [facility] Vascular Lab Routine Aortic mural thrombus (HCC) 1 Occurrences starting 08/31/2021 until 08/31/[address] [facility] Work Phone: Payers Date Payer Category Payer Unknown [employer] PPO [id number] 2021-Present [phone] [address] [place] [address] PPO [id number] 2021 Unknown [employer] PPO [id number] 2021-Present [phone] [address] [place] [address] PPO [id number] 2020 Unknown [facility] [facility] [id number] 2020-Present [phone] [address] [address] [place] [address] Indemnity [id number] 2016 Unknown [id number] 1970 Unknown [id number] 1 1970 Unknown [id number] 1 1970 Unknown [id number] 1 1970 Unknown [id number] 1 1970 Unknown [id number] 1 1970 Unknown [id number] 1 1970 Unknown [id number] 1 1970 Unknown [id number] 1 1970 Unknown [id number] 4 Social History Date Type Detail Facility Start: 12-04-2019 Tobacco smoking status NHIS Ex-smoker [facility] Work Phone: Start: 12-04-2019 Tobacco use and exposure Smokeless tobacco non-user [facility] Work Phone: Start: 09-18-2020 End: 12-10-2021 Alcohol intake Ex-drinker (finding) [facility] Start: 04-05-2019 End: 11-30-2019 History SDOH Alcohol Frequency 1 [facility] Start: 11-30-2019 History SDOH Financial 5 [facility] Start: 11-30-2019 History SDOH Transport Non-Med 2 [facility] Start: 12-04-2019 Tobacco Comment quit 1 month ago [facility] Start: 1970 Sex Assigned At Not on file [facility] Start: 1970 Sex Assigned At Female [facility] History of tobacco use Current smoker [facility] Work Phone: Start: 04-05-2019 End: 06-30-2022 History of Social function [facility] Work Phone: Start: 04-05-2019 End: 06-30-2022 Alcohol Use Disorder Identification Test - Consumption [AUDIT-C] [facility] Work Phone: How often to you hav e a drink containing alcohol? Never [facility] Work Phone: Average Number of Drinks Not on file [facility] Work Phone: (I/We) worried ronen er (my/our) food would run out before (I/we) got money to buy more. Never true [facility] Work Phone: Start: 11-23-2021 Gender identity Identifies as female gender (finding) [facility] Start: 11-23-2021 Sexual orientation Heterosexual (finding) [facility] Medical Equipment Procedure Code Equipment Code Equipment Origin al Text Equipment Identifier Dates Stent Protege Gp s Exprt 14mm .079in Large Diameter Nitinol 30mm 120cm - [id number] Start: 12-04-2019 Start: 12-08-2019 Note 01-09-2023 [...] be sent to her doctor. Gisele Arriola Metal Turner documented in this encounter [facility] History of Present illness Narrative 12-10-2021 Merrill De Luna MD - 12/10/2021 2:00 PM EDT Note Date & Type Note Facility 12-10-2021 History of Presen t illness Narrative Images from the original note were not included. DATE: 12/04/2019 SURGEON: Merrill De Luna M.D. SURGERY: First order aortic access on the right x2. First order aortic access on the left x1. 5-Niuean sheath on the left, 5-Niuean sheath on the right, 8- Niuean sheath up sized to a 20-Niuean sheath on the right. Mechanical thrombectomy with CATD of aortoiliac segment. Nitish embolectomy of aortoiliac segment from the right groin with a 20-Niuean sheath. Right iliac embolectomy. Left SFA and [...] than 70. Heart , Vascular and Thoracic [place] DEPARTMENT OF VASCULAR SURGERY OUTPATIENT VISIT DATE [...] tomorrow pending result of imaging Atherosclerosis of lower sioux artery of both lower extremities with intermittent [...] for INR goal 2-3 blood sugar diagnostic ([employer] VERIO TEST STRIPS) test strip Use as [...] subcutaneously three times daily before meals. Insulin [place]osh[place], Disposable, (BD ULTRA-FINE PORTIA PEN NEEDLE) 32 gauge x 5/32 1 Each three times daily before meals. lancets ([employer] DELTaamkru PLUS LANCET) 33 gauge 1 Each three times daily. insulin lispro (HUMALOG) 100 unit/mL injection Inject 0-10 Units subcutaneously daily at bedtime. ADMINISTER CORRECTIONAL INSULIN REGARDLESS OF MEAL OR NUTRITION INTAKEScale 2If Blood Glucose (mg/dL) is:Less than 110 Give 0 -816 Give 0 [id number] Give 2 [id number] Give 4 -809 Give 6 [id number] Give 8 [id number] Give 10 unitsGreater than 400 Give 10 [...] Medical Decision Making documented in this encounter [facility] Evaluation note 12-10-2021 Note Date & Type Note Facility documented in this encounter [facility] Evaluation note Note Date & Type Note Facility documented in this encounter [facility] Reason for referral (narrative) Outpatient Procedure (Routine) - Pending Review Note Date & Type Note Facility Referral ID Status Reason Start Date Expiration Date Visits Requested Visits Authorized [id number] Pending Review Auto-Generat ed Referral 08/31/2021 08/31/2022 1 1 * Outpatient Procedure (Routine) - Pending Review Specialty Diagnoses / Procedures Referred By Contac t Referred To Contact [facility] Diagnoses Aortic mural thrombus (HCC) Procedures US FEMORAL ARTERY [facility] DUP-SCAN LXTR ART/ARTL BPGS COMPL BI STUDY Merrill De Luna MD [address] [place] [address] [address] Referral ID Status Reason Start Date Expiration Date Visits Requested Visits Authorized [id number] Pending Review Auto-Generat ed Referral 08/31/2021 08/31/2022 1 1 * Outpatient Procedure (Routine) - Pending Review Specialty Diagnoses / Procedures Referred By Contac t Referred To Contact [facility] Diagnoses Aortic mural thrombus (HCC) Procedures US ABD AORTA COMPLETE [facility] DUP-SCAN AORTA IVC ILIAC VASCL/BPGS COMPLETE Merrill De Luna MD [address] [place] [address] [address] Referral ID Status Reason Start Date Expiration Date Visits Requested Visits Authorized [id number] Pending Review Auto-Generat ed Referral 08/31/2021 08/31/2022 1 1 * Outpatient Procedure (Routine) - Pending Review Specialty Diagnoses / Procedures Referred By Contac t Referred To [facility] [place] Diagnoses Aortic mural thrombus (HCC) Procedures US LEG ARTERIAL PERIPH [facility] DUP-SCAN LXTR ART/ARTL BPGS COMPL BI STUDY Merrill De Luna MD [address] [place] [address] [address] [address] [place] [address] Referral ID Status Reason Start Date Expiration Date Visits Requested Visits Authorized [id number] Pending Review Auto-Generat ed Referral 08/31/2021 08/31/2022 1 1 [facility] Summary Purpose Family History No Family History Records FoundNo Family History Records FoundNo Family History Records FoundNo Family History Records Found Advance Directives No Advanced Directives Records FoundDocuments on File Type Date Recorded 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 Expl anation Advance Directive(s) 11/30/2019 2:17 PM Latest Code Status on File Code Status Date Activated Date Inactivated Comments Full Code 12/01/2019 11:29 PM 12/08/2019 3:50 PM Full Code Order Discussed With: Patient Documents on File Type Date Recorded 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 Expl anation Advance Directive(s) 11/30/2019 2:17 PM [...] DATE CREATED AUTHOR AUTHOR'S ORGANIZ ATION 01/14/2019 [facility] DATE CREATED AUTHOR AUTHOR'S ORGANIZ ATION 01/13/2020 [facility] DATE CREATED AUTHOR AUTHOR'S ORGANIZ ATION 01/25/2023 [facility] Source Comments (unrecognize d section and content) In the event this informatio n is protected by the Federal Confidentiality of Alcohol and Drug Abuse Patient Records regulations: The Federal rules restrict any use of the information to criminally investigate or prosecute any alcohol or drug abuse patient.[facility] the event this information is protected by the Federal Confidentiality of Alcohol and Drug Abuse Patient Records regulations: The Federal rules restrict any use of the information to criminally investigate or prosecute any alcohol or drug abuse patient.[facility] the event this information is protected by the Federal Confidentiality of Alcohol and Drug Abuse Patient Records regulations: The Federal rules restrict any use of the information to criminally investigate or prosecute any alcohol or drug abuse patient.[facility] Care Teams (unrecognized sec tion and content) Studio Designer Relationship Specialty Start Date End Date Shashank Tai Chi [address] [facility] [address] [place], [place] [id number] PCP - General Gerontology 11/30/19 Todd Tabor MD Family Practice 04/01/19 Studio Designer Relationship Specialty Start Date End Date ZaireShashank Chi [address] [facility] [address] [place] [address] PCP - General Gerontology 11/30/19 Todd Tabor MD [address] [facility] [address] [place], [place] [id number] Family Medicine 04/01/19 Reason for Visit (unrecogniz ed section and content) Specialty Diagnoses / Procedures Referred By Contemi t Referred To Contact Vascular Surgery / VASCULAR SURGERY Diagnoses aortic mural thrombus yearly followup Procedures EST PATIENT Self, MD De Luna, Merrill Reilly, [address] [place] [address] Referral ID Status Reason Start Date Expiration Date Visits Re quested Visits Authorized [id number] Open 12/10/2021 03/10/2022 1 1 Reason Comments [...] BE BASED ON THE PRIMARY CLINICAL RECORDS. [employer] provides no warranty or guarantee of the accuracy or completeness of information in this document.
[2023-06-26 18:18] LABS: Absolute Lymphocyte Count 2.52 X10^3/uL (0.83-4.51); Absolute Neutrophil Count 7.9 X10^3/uL (2.0-7.7); Basophil% 0.8 % (0-1); Eosinophil# 0.14 X10^3/uL; Eosinophils% 1.2 % (0-5); Hematocrit 47.3 % (37-47); Hemoglobin 15.5 g/dL (12.0-15.0); Lymphocyte # 2.52 X10^3/ul (0.83-4.51); Lymphocyte % 20.8 % (19-41); Mean Corp Hgb Conc 32.8 g/dL (32-36); Mean Corpuscular Hgb 30.9 pg (27.0-32.0); Mean Corpuscular Volume 94.4 fL (81-99); Monocyte# 1.37 X10^3/uL; Monocyte% 11.3 % (0-10); NRBC Flagged by Analyzer 0 % (0-5); Neutrophil % 65.2 % (47-70); Platelet Count 386 K/mm3 (150-450); RBC Distribution Width CV 14.8 % (11.6-14.6); RBC Distribution Width SD 51.5 fl (35.1-43.9); Red Blood Count 5.01 M/mm3 (4.2-5.4); White Blood Count 12.1 K/mm3 (4.4-11.0)
[2023-06-26 18:33] LABS: ALB/GLOB Ratio 0.9 RATIO (0.9-2.4); AST(SGOT) 15 U/L (15-37); Alanine Aminotransfer ALT/SGPT 26 U/L (13-56); Albumin, Serum 3.6 g/dL (3.2-5.0); Alkaline Phosphatase 76 U/L (45-117); Anion Gap 9 (5-15); BUN 13 mg/dL (7-18); BUN/Creat Ratio 20.3 RATIO (10-20); Chloride 102 mmol/L (98-107); Creatinine, Serum 0.64 mg/dL (0.55-1.02); EST Glomerular Filtration Rate 103 mL/min (>60); Est Glom Filt Rate - Afr Amer 125 mL/min (>60); Globulin 3.9 g/dL (2.2-4.2); Glucose 183 mg/dL (74-106); Potassium 3.6 mmol/L (3.5-5.1); Protein, Total 7.5 g/dL (6.4-8.2); Sodium Level 136 mmol/L (136-145)
== END | disposition home or self-care (01) ==
LOC: POLAB3 15:21
PROVIDERS: PCP Family Medicine Geriatric Medicine; Visit Provider Family Medicine Geriatric Medicine
DX: D64.9 Anemia, unspecified (principal); R53.1 Weakness
CPT/HCPCS: 36415; 80053; 85025

== ENCOUNTER → 2023-07-01 | Outpatient (CLI) | payer BC, SELFPAY ==
--- NOTE | 2023-07-01 09:33 | US_ITS ---
STUDY: ABDOMINAL ULTRASOUND - RIGHT UPPER QUADRANT REASON FOR VISIT: Female, 53 years old ABD PAIN NAUSEA TECHNIQUE: Ultrasound evaluation of the right upper quadrant was performed with real-time and static syed-scale imaging. TECHNICAL QUALITY: Adequate. COMPARISON: Comparison is made with prior ultrasound examination January 28, 2020. FINDINGS: Liver: The liver is mildly enlarged and measures 18.3 cm. There is increased echogenicity consistent with fatty infiltration. The bile ducts are within normal limits. There is hepatic color flow. The direction of portal flow is hepatopetal. There is no demonstrated mass lesion. Gallbladder: The patient is status post cholecystectomy. Common Bile Duct (C.B.D.): The common bile duct measures 4 mm. Pancreas: Normal size of the head, body and tail of the pancreas. There is normal echogenicity of the pancreas. There is no demonstrated pancreatic mass or cyst. Right Kidney: Normal size of the right kidney. The right kidney measures 12.7 cm x 6 cm x 5.2 cm. Normal renal cortex. The right cortex measures 1.7 cm. There is no demonstrated renal mass or cyst. There is no right hydronephrosis. US/Abdomen Limited IMPRESSION: Mild hepatomegaly and fatty infiltration of the liver. Electronically Signed: Bandar Garcia MD at 15:19 EST ,
== END | disposition home or self-care (01) ==
LOC: US 09:31
PROVIDERS: PCP Family Medicine Geriatric Medicine; Referring Provider Family Medicine Geriatric Medicine; Visit Provider Family Medicine Geriatric Medicine
DX: R10.9 Unspecified abdominal pain (principal); R11.2 Nausea with vomiting, unspecified
CPT/HCPCS: 76705

== ENCOUNTER → 2023-07-11 | Outpatient (CLI) | payer BC, SELFPAY ==
[2023-07-14 13:07] LABS: H.Pylori Breath Test Negative (Negative)
== END | disposition home or self-care (01) ==
LOC: POLAB3 12:58
PROVIDERS: PCP Family Medicine Geriatric Medicine; Visit Provider Family Medicine Geriatric Medicine
DX: K29.70 Gastritis, unspecified, without bleeding (principal)
CPT/HCPCS: 36415; 83013; 85610

== ENCOUNTER 2023-07-25 18:27 | Emergency (ER) | payer BC, SELFPAY ==
[2023-07-25 18:28] VITALS: TEMP 36.7; BMI 27.2
[2023-07-25 18:33] VITALS: BP 98/66; PULSE 83; RESP 12; O2SAT 99
--- NOTE | 2023-07-25 18:53 | EKG12_ITS ---
Test Reason : DYSRHYTHMIA Blood Pressure : / mmHG Vent. Rate : 081 BPM Atrial Rate : 081 BPM P-R Int : 156 ms QRS Dur : 074 ms QT Int : 396 ms P-R-T Axes : 042 -17 039 degrees QTc Int : 460 ms Normal sinus rhythm Normal ECG Confirmed by ELÍAS CRUZ, VERÓNICA ([id number]), desk editor TIFFANY ROMEO ([id number]) on 07/28/2023 9:42:42 AM Referred By: CAROLYN Confirmed By:VERÓNICA MCKINLEY MD
--- NOTE | 2023-07-25 18:55 | EX.ED.DYSGE1 ---
HPI History of Present Illness Chief Complaint: Other, Pain/Inj Detail of Chief Complaint: Neck pain Informant: patient Narrative Narrative: Patient presents via EMS secondary to neck pain. She states overall she has not felt well for the last week or 2 with nausea and decreased p.o. intake. Her doctor said it was secondary to her Ozempic and she is going to stop taking it but did have her dose this week. 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 She states she does have some right-sided neck pain as well but not as severe as the left. 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 Bruising Chronic cough Contact with or exposure to other viral diseases Contraceptive management Depression Diabetes mellitus DVT (deep venous thrombosis) Easy bruising Excessive bleeding Gastric reflux History of echocardiogram History of kidney stones Injury of head and neck Leg cramps Leukocytosis Menorrhagia with irregular cycle Migraine headache Multifocal pneumonia Sleep apnea Smoker URI (upper respiratory infection) Wears dentures Wears glasses Home Medications metformin 500 mg tablet 1,000 mg PO BID diabetes 02/28/14 [History Last Taken 11/26/19 16:00] atorvastatin 40 mg tablet 80 mg PO DAILY cholesterol 11/26/19 [History Last Taken 11/25/19] clopidogrel 75 mg tablet 75 mg PO DAILY 12/14/19 [History Last Taken 07/05/22] warfarin 5 mg tablet 7 mg PO DAILY DVT 12/14/19 [History Last Taken 07/05/22] biotin 5,000 mcg disintegrating tablet 10,000 mcg PO DAILY 04/03/20 [History Last Taken Unknown] pantoprazole 40 mg tablet,delayed release 40 mg PO DAILY 04/03/20 [History Last Taken 07/09/22] doxepin 10 mg capsule 10 mg PO PRN PRN Sleep 12/14/20 [History Last Taken Unknown] escitalopram oxalate 20 mg tablet (Lexapro) 20 mg PO DAILY 12/14/20 [History Last Taken Unknown] bupropion HCl 150 mg tablet,12 hr sustained-release 150 mg PO BID 07/05/22 [History Last Taken Unknown] valsartan 160 mg tablet 160 mg PO DAILY 07/05/22 [History Last Taken 07/09/22] sennosides 8.6 mg-docusate sodium 50 mg tablet (Senexon-S) 1 tab PO BID PRN Constipation 11/25/22 [History Last Taken Unknown] dapagliflozin propanediol 10 mg tablet (Farxiga) 10 mg PO DAILY 05/15/23 [History Last Taken Unknown] pioglitazone 30 mg tablet 30 mg PO DAILY Diabetes 05/15/23 [History Last Taken Unknown] levofloxacin 750 mg tablet 750 mg PO DAILY #5 tabs 05/17/23 [Rx Last Taken Unknown] ciprofloxacin HCl 500 mg tablet 500 mg PO BID #20 TABLETS 06/10/23 [Rx Last Taken Unknown] metronidazole 500 mg tablet 500 mg PO Q6H #40 tabs 06/10/23 [Rx Last Taken Unknown] ondansetron 4 mg disintegrating tablet 4 mg PO Q8H PRN PRN Nausea #10 tabs 06/26/23 [Rx Last Taken Unknown] ondansetron 4 mg disintegrating tablet 4 mg PO Q8H PRN PRN Nausea #10 tabs 07/25/23 [Rx Last Taken Unknown] tramadol 50 mg tablet 50 mg PO Q8H PRN pain #10 tabs 07/25/23 [Rx Last Taken Unknown] Allergy/AdvReac Type Severity Reaction Status Date / Time latex Allergy Mild rash Verified 07/25/23 18:32 Penicillins [PCN] Allergy Hives Verified 07/25/23 18:32 Family History Brother Diabetes Father Diabetes Mother Diabetes Uncle Diabetes Skin cancer Colon cancer Uncle Diabetes Aunt Breast cancer Surgical History H/O lithotripsy H/O tubal ligation History of embolectomy History of esophagogastroduodenoscopy (EGD) Hx of cholecystectomy Hx of partial nephrectomy Status post endometrial ablation Social History household members: family current occupational status: employed current occupation: [employer] history of recent travel: No sexually active: No Smoking Status: Current every day smoker tobacco type: cigarettes alcohol intake: never substance use type: does not use what type of physical activity do you participate in: other seatbelt use: always do you feel safe at home: Yes additional social history: single ROS ROS ED Constitutional Constitutional ED: Denies chills or fever(s) Eyes Eyes: Denies change in vision or discharge from eye(s) ENT ENT ED: Denies discharge from eye(s), rhinorrhea or sore throat Cardiovascular Cardiovascular: Denies chest pain or palpitations Respiratory/Chest Respiratory/Chest: Denies cough or dyspnea Gastrointestinal Gastrointestinal: Reports abdominal pain and nausea; Denies diarrhea or vomiting Genitourinary Genitourinary ED: Denies dysuria Musculoskeletal Musculoskeletal: Reports extremity pain and neck pain; Denies back pain Integumentary Denies Abrasions or rash Neurologic Neurologic: Denies headache(s) or weakness Psychiatric Psychiatric: Denies anxiety or depression Allergic/Immunologic Allergic/Immunologic ED: Denies lip swelling or urticaria EXAM Physical Exam Const Vital Signs: 07/25/23 18:28 07/25/23 18:31 07/25/23 18:33 Temperature 98.1 F Temperature Source Oral Pulse Rate 83 Respiratory Rate 12 Respiratory Effort Normal Non-Labored Respiratory Pattern Normal Blood Pressure 98/66 Blood Pressure Mean 76 Pulse Ox 99 Oxygen Delivery Method Room Air 07/25/23 19:33 Temperature Temperature Source Pulse Rate 92 Respiratory Rate 18 Respiratory Effort Respiratory Pattern Blood Pressure 96/57 L Blood Pressure Mean 70 Pulse Ox 99 Oxygen Delivery Method Room Air Positive well nourished and well developed General Appearance ED: well developed HEENT Reports moist mucous membranes Eyes EOMs intact bilaterally Chest Wall inspection of chest normal and palpation of chest normal Resp normal respiratory effort and clear to auscultation bilaterally Cardio regular rate and regular rhythm GI non-tender Auscultation: hypoactive bowel sounds Palpation: soft Back/Spine Back/Spine Narrative: Tenderness in the cervical bilateral paraspinal muscles. Neuro oriented x3 and no sensory deficits noted Motor Exam: strength 5/5 throughout Psych mental status grossly normal Skin no rashes or lesions noted MDM MDM MDM Narrative Medical decision making narrative: Patient placed on cardiac technician. IV line initiated. EKG obtained to evaluate for cardiac arrhythmia/ischemia. Labwork obtained to evaluate for leukocytosis, anemia, and electrolyte derangement. Patient given IV fluid bolus along with a small dose of fentanyl and Zofran for pain. Lidoderm patch is placed to the neck. History & Record Review Discussion w/independent historian: Patient Lab Data Attestation: I reviewed the patient's lab results. Labs: Laboratory Results - last 24 hr 07/25/23 18:30 WBC 12.9 H RBC 5.27 Hgb 16.6 H Hct 49.0 H MCV 93.0 MCH 31.5 MCHC 33.9 RDW Std Deviation 47.7 H RDW Coeff of Edvin 13.8 Plt Count 417 MPV 10.1 Immature Gran % (Auto) 0.500 Neut % (Auto) 70.0 Lymph % (Auto) 21.9 [place] % (Auto) 6.4 Eos % (Auto) 0.6 Baso % (Auto) 0.6 Absolute Neuts (auto) 9.0 H Absolute Lymphs (auto) 2.82 Nucleated RBC % 0 PT 26.3 H INR 2.4 Sodium 137 Potassium 3.6 Chloride 102 Carbon Dioxide 25.0 Anion Gap 10 BUN 14 Creatinine 1.20 H Estim Creat Clear Calc 58.68 Est GFR (MDRD) Af Amer 60 Est GFR (MDRD) Non-Af 50 L BUN/Creatinine Ratio 11.7 Glucose 227 H Calcium 10.6 H Troponin I High Sens 4 Treatment and Re-Evaluation :: White blood cell count is elevated at 12.9 with normal differential. On review of records patient always has a mildly elevated white count on previous labs. Chemistry studies reveal creatinine 1.20. Appears her baseline is around 0.65. INR is therapeutic at 2.4. Troponin is normal at 4. EKG is sinus rhythm 81 bpm with no acute ischemia. On repeat evaluation she does report some improvement in her pain and her nausea is improved. I advised her that she may have a viral syndrome given her body aches, muscle spasms, nausea. Her swab for COVID, influenza, and RSV is negative. I will give her a short course of tramadol for pain as well as Zofran for nausea at home. Patient's systolic blood pressure is currently 103. She will increase fluids throughout the weekend to maintain hydration and she has received 1 L of IV fluids here. Discharge Plan Triage Chief Complaint: Other, Pain/Inj ED Provider: Lolis Ladd Dx/Rx/DC Orders Clinical Impression: Muscle spasm, Viral syndrome Instructions: ED Neck Spasm, No Trauma, ED Viral Syndrome (Adult) Prescriptions: New ondansetron 4 mg tablet,disintegrating 4 mg PO Q8H PRN PRN (Reason: Nausea) Qty: 10 0RF tramadol 50 mg tablet 50 mg PO Q8H PRN (Reason: pain) Qty: 10 0RF No Action metformin 500 MG tablet 1,000 mg PO BID Patient Comments: atorvastatin 40 MG tablet 80 mg PO DAILY clopidogrel 75 MG tablet 75 mg PO DAILY warfarin 5 MG tablet 7 mg PO DAILY pantoprazole 40 MG tablet 40 mg PO DAILY biotin 5,000 MCG tablet,disintegrating 10,000 mcg PO DAILY sennosides-docusate sodium [Senexon-S] 8.6-50 mg tablet 1 tab PO BID PRN (Reason: Constipation) doxepin 10 mg capsule 10 mg PO PRN PRN (Reason: Sleep) escitalopram oxalate [Lexapro] 20 mg tablet 20 mg PO DAILY Patient Comments: TAKE 1 TABLET BY MOUTH EVERY DAY bupropion HCl 150 mg tablet sustained-release 12 hr 150 mg PO BID Patient Comments: TAKE 1 TABLET ORALLY TWICE PER DAY FOR 90 DAYS valsartan 160 mg tablet 160 mg PO DAILY Patient Comments: TAKE 1 TABLET BY MOUTH EVERY DAY ondansetron 4 mg tablet,disintegrating 4 mg PO Q8H PRN PRN (Reason: Nausea) Qty: 10 0RF Farxiga 10 mg tablet 10 mg PO DAILY pioglitazone 30 mg tablet 30 mg PO DAILY Patient Comments: TAKE 1 TABLET ORALLY ONCE PER DAY FOR 30 DAYS levofloxacin 750 mg tablet 750 mg PO DAILY Qty: 5 0RF metronidazole [metronidazole] 500 mg tablet 500 mg PO Q6H Qty: 40 0RF ciprofloxacin HCl [ciprofloxacin HCl] 500 mg tablet 500 mg PO BID Qty: 20 0RF Primary Care Provider: Shashank Tai Chi Referrals: Shashank Tai Chi, MD [Primary Care Provider] - 1 Week Disposition Disposition: Home, Self Care
[2023-07-25 19:14] LABS: Absolute Lymphocyte Count 2.82 X10^3/uL (0.83-4.51); Basophil# 0.08 X10^3/uL; Basophil% 0.6 % (0-1); Eosinophil# 0.08 X10^3/uL; Eosinophils% 0.6 % (0-5); Hemoglobin 16.6 g/dL (12.0-15.0); Lymphocyte # 2.82 X10^3/ul (0.83-4.51); Lymphocyte % 21.9 % (19-41); Mean Corp Hgb Conc 33.9 g/dL (32-36); Mean Corpuscular Hgb 31.5 pg (27.0-32.0); Mean Platelet Vol. 10.1 fl (6.2-12.0); Monocyte# 0.83 X10^3/uL; Monocyte% 6.4 % (0-10); NRBC Flagged by Analyzer 0 % (0-5); Platelet Count 417 K/mm3 (150-450); RBC Distribution Width CV 13.8 % (11.6-14.6); RBC Distribution Width SD 47.7 fl (35.1-43.9); Red Blood Count 5.27 M/mm3 (4.2-5.4); White Blood Count 12.9 K/mm3 (4.4-11.0)
--- OUTSIDE RECORDS SUMMARY | 2023-07-25 19:14 | XMS RPT_ITS | CCD ---
Author Name Unknown Address [address] [place] [address] Organization [facility] Care Team Providers Care Distribution Engineering Technologist Name Role Phone SUHA RUSSELL CNP Admitting [...] Facility (1 source) [facility] Drug allergy (disorder) [facility] Repository (2 sources) Penicillins Drug Allergy 03-14-2014 Rash, Unknown [facility] (4 sources) Penicillins Drug Allergy 03-14-2014 Rash, Unknown [facility] Medications Completed/Discontinued Medications Medication Drug Class(es) Dates [...] and due to atherosclerosis; Translations: [Atherosclerosis of [place] arteries of extremities with intermittent claudication, bilateral [...] mm[Hg] Merrill De Luna MD Work Phone: [facility] 12-10-2021 12:50-0400 Heart rate 66 /min Merrill De Luna MD Work Phone: [facility] 12-10-2021 12:50-0400 Systolic blood pressure 119 mm[Hg] Merrill De Luna MD Work Phone: [facility] Encounters Encounter Date Encounter Type Care Provider Facility Start: 01-09-2023 Telephone encounter Merrill izaguirre MD Work Phone: Vascular Surg Dept Procedures Date Procedure Procedure Detail Performing Clinician Start: 04-05-2019 Mammography Merrill De Luna MD Work Phone: Plan of Treatment Date Care Activity Detail Author Start: 04-05-2024 HPV TESTING HPV TESTING [facility] Start: 04-05-2024 PAP TESTING PAP TESTING [facility] Start: 01-31-2023 Influenza vaccination INFLUENZA (#1) [facility] Start: 12-10-2022 BP CONTROLLED (<130/80) BP CONTROLLED (<130/80) [facility] Start: 01-31-2022 Influenza vaccination [facility] Start: 09-18-2021 BP CONTROLLED (<130/80) BP CONTROLLED (<130/80) [facility] Start: 11-28-2020 3 comp foot exam completed DIABETIC FOOT EXAM [facility] Start: 2020 SHINGRIX VACCINE (1 of 2) SHINGRIX VACCINE (1 of 2) [facility] Start: 04-05-2020 Mammography MAMMOGRAM [facility] Start: 03-02-2020 Hemoglobin A1c/Hemoglobin.total in Blood HBA1C [facility] Start: 2015 COLOGUARD (FIT-DNA) COLOGUARD (FIT-DNA) [facility] Start: 2015 Colonoscopy COLONOSCOPY [facility] Start: 2015 COLORECTAL CANCER SCREENING COLORECTAL CANCER SCREENING [facility] Start: [address] COLONOGRAPHY [facility] Start: 2015 FECAL OCCULT BLOOD FECAL OCCULT BLOOD [facility] Start: 2015 SIGMOIDOSCOPY SIGMOIDOSCOPY [facility] Start: 1989 Urine microalbumin profile DTAP,TDAP,TD (1 - Tdap) [facility] Start: 1988 ANNUAL PCP TEAM CHRONIC DISEASE VISIT ANNUAL PCP TEAM CHRONIC DISEASE VISIT [facility] Start: 1988 BP CONTROLLED (<130/80) BP CONTROLLED (<130/80) [facility] Start: 1988 Hepatitis B surface antibody level LDL CHOLESTEROL [facility] Start: 1988 HIV SCREENING HIV SCREENING [facility] Start: 1986 ONE PNEUMOVAX PRIOR TO AGE 65 ONE PNEUMOVAX PRIOR TO AGE 65 [facility] Start: 1980 Hepatitis B screening URINE ALBUMIN:CREATININE RATIO [facility] Start: 1980 Hepatitis C antibody, confirmatory test DILATED RETINAL EXAM [facility] Start: 1976 PNEUMOCOCCAL (1 - PCV) PNEUMOCOCCAL (1 - PCV) [facility] Start: 1975 COVID-19 VACCINE (1) COVID-19 VACCINE (1) [facility] Start: 1970 COVID-19 VACCINE (#1) COVID-19 VACCINE (#1) [facility] End: 08-31-2022 PVR ANK/[place]/TOE [facility] PVR ANK/[place]/TOE [facility] Vascular Lab Routine Aortic mural thrombus (HCC) 1 Occurrences starting 08/31/2021 until 08/31/2022 [facility] Work Phone: Payers Date Payer Category Payer Unknown [employer] PPO [id number] 2021-Present [phone] [address] [place] [address] PPO [id number] 2021 Unknown [employer] PPO [id number] 2021-Present [phone] [address] [place] [address] PPO [id number] 2020 Unknown [employer] PREF ERRED NETWORK [facility] [place] [id number] 2020-Present [phone] [address] [address] [place] [address] Indemnity [id number] 2016 Unknown [id number] 1970 Unknown [id number] 1 1970 Unknown [id number] 1 1970 Unknown [id number] 1 1970 Unknown [id number] 1 1970 Unknown [id number] 1 1970 Unknown [id number] 1 1970 Unknown [id number] 1 1970 Unknown [id number] 1 1970 Unknown [id number] 4 Social History Date Type Detail Facility Start: 12-04-2019 Tobacco smoking status NHIS Ex-smoker [facility] Work Phone: Start: 12-04-2019 Tobacco use and exposure Smokeless tobacco non-user [facility] Work Phone: Start: 09-18-2020 End: 12-10-2021 Alcohol intake Ex-drinker (finding) [facility] Start: 04-05-2019 End: 11-30-2019 History SDOH Alcohol Frequency 1 [facility] Start: 11-30-2019 History SDOH Financial 5 [facility] Start: 11-30-2019 History SDOH Transport Non-Med 2 [facility] Start: 12-04-2019 Tobacco Comment quit 1 month ago [facility] Start: 1970 Sex Assigned At Not on file [facility] Start: 1970 Sex Assigned At Female [facility] History of tobacco use Current smoker [facility] Work Phone: Start: 04-05-2019 End: 06-30-2022 History of Social function [facility] Work Phone: Start: 04-05-2019 End: 06-30-2022 Alcohol Use Disorder Identification Test - Consumption [AUDIT-C] [facility] Work Phone: How often to you hav e a drink containing alcohol? Never [facility] Work Phone: Average Number of Drinks Not on file [facility] Work Phone: (I/We) worried ronen er (my/our) food would run out before (I/we) got money to buy more. Never true [facility] Work Phone: Start: 11-23-2021 Gender identity Identifies as female gender (finding) [facility] Start: 11-23-2021 Sexual orientation Heterosexual (finding) [facility] Medical Equipment Procedure Code Equipment Code Equipment Origin al Text Equipment Identifier Dates Stent Protege Gp s Exprt 14mm .079in Large Diameter Nitinol 30mm 120cm - [id number] Start: 12-04-2019 Start: 12-08-2019 Note 01-09-2023 [...] be sent to her doctor. Gisele Arriola Naphthalene Still Operator documented in this encounter [facility] History of Present illness Narrative 12-10-2021 Merrill De Luna MD - 12/10/2021 2:00 PM EDT Note Date & Type Note Facility 12-10-2021 History of Presen t illness Narrative Images from the original note were not included. DATE: 12/04/2019 SURGEON: Merrill De Luna M.D. SURGERY: First order aortic access on the right x2. First order aortic access on the left x1. 5-[place] sheath on the left, 5-[place] sheath on the right, 8- [place] sheath up sized to a 20-[place] sheath on the right. Mechanical thrombectomy with CATD of aortoiliac segment. Nitish embolectomy of aortoiliac segment from the right groin with a 20-[place] sheath. Right iliac embolectomy. Left SFA and [...] than 70. Heart , Vascular [facility] Thoracic [place] DEPARTMENT OF VASCULAR SURGERY OUTPATIENT VISIT DATE [...] tomorrow pending result of imaging Atherosclerosis of [place] artery of both lower extremities with intermittent [...] for INR goal 2-3 blood sugar diagnostic ([facility] VERIO TEST STRIPS) test strip Use as [...] subcutaneously three times daily before meals. Insulin [place], Disposable, (BD ULTRA-FINE PORTIA PEN NEEDLE) 32 gauge x 5/32 1 Each three times daily before meals. lancets ([facility] DELSun-eee PLUS LANCET) 33 gauge 1 Each three times daily. insulin lispro (HUMALOG) 100 unit/mL injection Inject 0-10 Units subcutaneously daily at bedtime. ADMINISTER CORRECTIONAL INSULIN REGARDLESS OF MEAL OR NUTRITION INTAKEScale 2If Blood Glucose (mg/dL) is:Less than 110 Give 0 [id number] Give 0 [id number] Give 2 [id number] Give 4 [id number] Give 6 [id number] Give 8 [id number] Give 10 unitsGreater than 400 Give 10 [...] Medical Decision Making documented in this encounter [facility] Evaluation note 12-10-2021 Note Date & Type Note Facility documented in this encounter [facility] Evaluation note Note Date & Type Note Facility documented in this encounter [facility] Reason for referral (narrative) Outpatient Procedure (Routine) - Pending Review Note Date & Type Note Facility Referral ID Status Reason Start Date Expiration Date Visits Requested Visits Authorized [id number] Pending Review Auto-Generat ed Referral 08/31/2021 08/31/2022 1 1 * Outpatient Procedure (Routine) - Pending Review Specialty Diagnoses / Procedures Referred By Contac t Referred To Contact [facility] Diagnoses Aortic mural thrombus (HCC) Procedures US FEMORAL ARTERY [facility] DUP-SCAN LXTR ART/ARTL BPGS COMPL BI STUDY Merrill De Luna MD [address] [place] [address] [address] Referral ID Status Reason Start Date Expiration Date Visits Requested Visits Authorized [id number] Pending Review Auto-Generat ed Referral 08/31/2021 08/31/2022 1 1 * Outpatient Procedure (Routine) - Pending Review Specialty Diagnoses / Procedures Referred By Contac t Referred To Contact [facility] Diagnoses Aortic mural thrombus (HCC) Procedures US ABD AORTA COMPLETE VAS LAB DUP-SCAN AORTA IVC ILIAC VASCL/BPGS COMPLETE Merrill De Luna MD [address] [place] [address] [address] Referral ID Status Reason Start Date Expiration Date Visits Requested Visits Authorized [id number] Pending Review Auto-Generat ed Referral 08/31/2021 08/31/2022 1 1 * Outpatient Procedure (Routine) - Pending Review Specialty Diagnoses / Procedures Referred By Contac t Referred To [facility] [place] Diagnoses Aortic mural thrombus (HCC) Procedures US LEG ARTERIAL PERIPH LIZ [facility] DUP-SCAN LXTR ART/ARTL BPGS COMPL BI STUDY Merrill De Luna MD [address] [place] [address] [address] [place] [address] Referral ID Status Reason Start Date Expiration Date Visits Requested Visits Authorized [id number] Pending Review Auto-Generat ed Referral 08/31/2021 08/31/2022 1 1 [facility] Summary Purpose Family History No Family History Records FoundNo Family History Records FoundNo Family History Records FoundNo Family History Records Found Advance Directives No Advanced Directives Records FoundDocuments on File Type Date Recorded 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 anation Advance Directive(s) 11/30/2019 2:17 PM Latest Code Status on File Code Status Date Activated Date Inactivated Comments Full Code 12/01/2019 11:29 PM 12/08/2019 3:50 PM Full Code Order Discussed With: Patient Documents on File Type Date Recorded 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 Advance Directive(s) 11/30/2019 2:17 [...] CREATED AUTHOR AUTHOR'S ORGANIZ ATION 01/14/2019 [facility] DATE CREATED AUTHOR AUTHOR'S ORGANIZ ATION 01/13/2020 [facility] DATE CREATED AUTHOR AUTHOR'S ORGANIZ ATION 01/25/2023 [facility] Source Comments (unrecognize d section and content) In the event this informatio n is protected by the Federal Confidentiality of Alcohol and Drug Abuse Patient Records regulations: The Federal rules restrict any use of the information to criminally investigate or prosecute any alcohol or drug abuse patient.[facility] the event this information is protected by the Federal Confidentiality of Alcohol and Drug Abuse Patient Records regulations: The Federal rules restrict any use of the information to criminally investigate or prosecute any alcohol or drug abuse patient.[facility] the event this information is protected by the Federal Confidentiality of Alcohol and Drug Abuse Patient Records regulations: The Federal rules restrict any use of the information to criminally investigate or prosecute any alcohol or drug abuse patient.[facility] Care Teams (unrecognized sec tion and content) Distribution Engineering Technologist Relationship Specialty Start Date End Date Shashank Tai Chi [address] [facility] [address] [place], [place] [id number] PCP - General Gerontology 11/30/19 Todd Tabor MD Family Practice 04/01/19 Distribution Engineering Technologist Relationship Specialty Start Date End Date ZaireShashank Chi [address] [facility] [address] [place] [address] PCP - General Gerontology 11/30/19 Todd Tabor MD [address] [address] [place], [place] [id number] Family Medicine 04/01/19 Reason for Visit (unrecogniz ed section and content) Specialty Diagnoses / Procedures Referred By Contemi t Referred To Contact Vascular Surgery / VASCULAR SURGERY Diagnoses aortic mural thrombus yearly followup Procedures EST PATIENT Self, MD De Luna, Merrill Reilly, [address] [place] [address] Referral ID Status Reason Start Date Expiration Date Visits Re quested Visits Authorized [id number] Open 12/10/2021 03/10/2022 1 1 Reason Comments [...] BE BASED ON THE PRIMARY CLINICAL RECORDS. [employer] provides no warranty or guarantee of the accuracy or completeness of information in this document.
[2023-07-25] MEDS: 0.9% Normal Saline (1000mL) 1,000 ML 1000 ML IV (19:18)
[2023-07-25] MEDS: fentaNYL 100 MCG/2 ML Ampul 25 MCG IV (19:18)
[2023-07-25] MEDS: Lidocaine 5% Patch 1 PATCH TOPICAL (19:20)
[2023-07-25] MEDS: Ondansetron 4 MG/2 ML Vial IV (19:20)
[2023-07-25 19:27] LABS: Anion Gap 10 (5-15); BUN 14 mg/dL (7-18); BUN/Creat Ratio 11.7 RATIO (10-20); Calcium,Total 10.6 mg/dL (8.5-10.1); Chloride 102 mmol/L (98-107); EST Glomerular Filtration Rate 50 mL/min (>60); Est Glom Filt Rate - Afr Amer 60 mL/min (>60); Estimated Creatinine Clearance 58.68 ml/min; Glucose 227 mg/dL (74-106); Potassium 3.6 mmol/L (3.5-5.1); Sodium Level 137 mmol/L (136-145); Troponin-I HS 4 pg/mL (3.0-54.0)
[2023-07-25 19:28] LABS: International Normalized Ratio 2.4; Prothrombin Time (Protime)PT. 26.3 SECONDS (11.7-14.9)
[2023-07-25 19:33] VITALS: BP 96/57; PULSE 92; RESP 18; O2SAT 99
[2023-07-25 20:29] VITALS: BP 96/57; PULSE 92; RESP 16; TEMP 36.9; O2SAT 99
== END 2023-07-25 20:35 | disposition home or self-care (01) ==
PROVIDERS: Emergency Provider Emergency Medicine; PCP Family Medicine Geriatric Medicine; Visit Provider Emergency Medicine
DX: M62.838 Other muscle spasm (principal); E11.9 Type 2 diabetes mellitus without complications; X50.0XXA Overexertion from strenuous movement or load, initial encounter; B34.9 Viral infection, unspecified; F17.210 Nicotine dependence, cigarettes, uncomplicated; Z79.01 Long term (current) use of anticoagulants; Z79.02 Long term (current) use of antithrombotics/antiplatelets; Z79.84 Long term (current) use of oral hypoglycemic drugs; Z86.718 Personal history of other venous thrombosis and embolism
CPT/HCPCS: 80048; 84484; 85025; 85610; 87631; 93005; 96361; 96374; 99285; J7030; J2405

== ENCOUNTER → 2023-08-15 | Outpatient (CLI) | payer BC, SELFPAY ==
--- NOTE | 2023-08-15 12:05 | NM_ITS ---
CLINICAL: 53-year-old diabetic female with history of abdominal pain. SEMI-SOLID PHASE 99m Tc SULFUR COLLOID GASTRIC EMPTYING STUDY COMPARISON: Abdominal ultrasound report 07/01/2023, CT of the abdomen-pelvis report 06/10/2023 FINDINGS: The patient was administered 1.1 mCi of 99m Tc sulfur colloid mixed with oatmeal and consumed per os. Image acquisitions in the anterior-posterior projections were obtained for 60 minutes. There is prompt visualization of the stomach. There is no gastroesophageal reflux identified. First order kinetics are maintained throughout the duration of the acquisitions. The T ? raw data emptying was calculated to be 9.69 minutes, (Normal: 12-56 minutes). NM/Gastric Emptying Study IMPRESSION: 1. There is rapid-accelerated semi-solid phase gastric emptying compared to normal controls. (Naveen et al, J Nucl Med Tech 38: 186, 2010). Electronically Signed: Liam Fatima DO at 11:39 EDT ,
== END | disposition home or self-care (01) ==
LOC: NM 12:03
PROVIDERS: PCP Family Medicine Geriatric Medicine; Referring Provider Family Medicine Geriatric Medicine; Visit Provider Family Medicine Geriatric Medicine
DX: K29.70 Gastritis, unspecified, without bleeding (principal)
CPT/HCPCS: 78264; A9541

== ENCOUNTER → 2023-08-18 | Outpatient (CLI) | payer BC, SELFPAY ==
[2023-08-18 15:35] LABS: Absolute Lymphocyte Count 2.67 X10^3/uL (0.83-4.51); Absolute Neutrophil Count 3.8 X10^3/uL (2.0-7.7); Basophil% 1.3 % (0-1); Eosinophil# 0.19 X10^3/uL; Eosinophils% 2.6 % (0-5); Hematocrit 44.6 % (37-47); Hemoglobin 14.7 g/dL (12.0-15.0); Lymphocyte # 2.67 X10^3/ul (0.83-4.51); Lymphocyte % 35.9 % (19-41); Mean Corpuscular Hgb 31.4 pg (27.0-32.0); Mean Corpuscular Volume 95.3 fL (81-99); Mean Platelet Vol. 10.3 fl (6.2-12.0); Monocyte# 0.59 X10^3/uL; Monocyte% 7.9 % (0-10); NRBC Flagged by Analyzer 0 % (0-5); Neutrophil # 3.82 X10^3/uL (2.7-7.7); Neutrophil % 51.5 % (47-70); Platelet Count 402 K/mm3 (150-450); RBC Distribution Width SD 49.3 fl (35.1-43.9); Red Blood Count 4.68 M/mm3 (4.2-5.4); White Blood Count 7.4 K/mm3 (4.4-11.0)
[2023-08-18 16:59] LABS: ALB/GLOB Ratio 1.1 RATIO (0.9-2.4); AST(SGOT) 19 U/L (15-37); Alanine Aminotransfer ALT/SGPT 31 U/L (13-56); Albumin, Serum 3.6 g/dL (3.2-5.0); Alkaline Phosphatase 93 U/L (45-117); Anion Gap 6 (5-15); BUN 12 mg/dL (7-18); Calcium,Total 9.7 mg/dL (8.5-10.1); Chloride 105 mmol/L (98-107); Creatinine, Serum 0.67 mg/dL (0.55-1.02); EST Glomerular Filtration Rate 98 mL/min (>60); Est Glom Filt Rate - Afr Amer 119 mL/min (>60); Globulin 3.4 g/dL (2.2-4.2); Glucose 266 mg/dL (74-106); Sodium Level 137 mmol/L (136-145)
== END | disposition home or self-care (01) ==
LOC: POLAB3 14:33
PROVIDERS: PCP Family Medicine Geriatric Medicine; Visit Provider Family Medicine Geriatric Medicine
DX: E11.65 Type 2 diabetes mellitus with hyperglycemia (principal); I10 Essential (primary) hypertension
CPT/HCPCS: 36415; 80053; 84443; 85025

== ENCOUNTER → 2023-08-25 | Outpatient (CLI) | payer BC, SELFPAY ==
--- NOTE | 2023-08-25 09:02 | US_ITS ---
STUDY: ABDOMINAL ULTRASOUND - RIGHT UPPER QUADRANT; ELASTOGRAPHY REASON FOR VISIT: Female, 53 years old. Fatty infiltration of the liver. TECHNIQUE: Ultrasound evaluation of the right upper quadrant was performed with real-time and static syed-scale imaging. Point quantification shear wave elastography was performed ([employer]). TECHNICAL QUALITY: Adequate. COMPARISON: Comparison is made with prior study dated July 01, 2023. FINDINGS: Liver: The liver is enlarged and measures 18.8 cm. There is increased echogenicity consistent with fatty infiltration. The bile ducts are within normal limits. There is hepatic color flow. The direction of portal flow is hepatopetal. There is no demonstrated mass lesion. Median liver stiffness measured 7.7 kPa. Gallbladder: The patient is status post cholecystectomy. Common Bile Duct (C.B.D.): The common bile duct measures 5.5 mm. Pancreas: There is normal echogenicity of the visualized pancreas. There is no demonstrated pancreatic mass or cyst. Right Kidney: Normal size of the right kidney. The right kidney measures 13 cm x 5.1 cm x 4.9 cm. Normal renal cortex. The right cortex measures 1.0 cm. There is no demonstrated renal mass or cyst. There is no right hydronephrosis. US/ABD Limited w/ Elastography IMPRESSION: 1. Liver stiffness measures 7.7 kPa compatible with F2-F3 (Mild to moderate liver fibrosis) Metavir score. 2. Fatty infiltration of the liver and mild hepatomegaly. Electronically Signed: Bandar Garcia MD at 10:57 EDT ,
== END | disposition home or self-care (01) ==
LOC: US 09:01
PROVIDERS: PCP Family Medicine Geriatric Medicine; Referring Provider Family Medicine Geriatric Medicine; Visit Provider Family Medicine Geriatric Medicine
DX: K76.0 Fatty (change of) liver, not elsewhere classified (principal)
CPT/HCPCS: 76705; 76981

== ENCOUNTER → 2023-11-13 | Outpatient (CLI) | payer BC, SELFPAY | END | disposition home or self-care (01) | PROVIDERS: PCP Family Medicine Geriatric Medicine; Visit Provider Family Medicine Geriatric Medicine | DX: L03.116 Cellulitis of left lower limb (principal); B95.62 Methicillin resistant Staphylococcus aureus infection as the cause of diseases classified elsewhere | CPT/HCPCS: 87070; 87205; 87640 ==

== ENCOUNTER → 2023-11-25 | Outpatient (CLI) | payer BC, SELFPAY ==
[2023-11-25 13:22] LABS: Absolute Lymphocyte Count 2.49 X10^3/uL (0.83-4.51); Absolute Neutrophil Count 5.4 X10^3/uL (2.0-7.7); Basophil# 0.11 X10^3/uL; Basophil% 1.2 % (0-1); Eosinophil# 0.25 X10^3/uL; Eosinophils% 2.8 % (0-5); Hemoglobin 13.7 g/dL (12.0-15.0); Lymphocyte # 2.49 X10^3/ul (0.83-4.51); Lymphocyte % 27.9 % (19-41); Mean Corp Hgb Conc 32.6 g/dL (32-36); Mean Corpuscular Hgb 30.4 pg (27.0-32.0); Mean Corpuscular Volume 93.3 fL (81-99); Mean Platelet Vol. 9.8 fl (6.2-12.0); Monocyte# 0.69 X10^3/uL; Monocyte% 7.7 % (0-10); NRBC Flagged by Analyzer 0 % (0-5); Neutrophil # 5.35 X10^3/uL (2.7-7.7); Platelet Count 358 K/mm3 (150-450); RBC Distribution Width CV 13.8 % (11.6-14.6); RBC Distribution Width SD 47.5 fl (35.1-43.9); White Blood Count 8.9 K/mm3 (4.4-11.0)
[2023-11-25 14:00] LABS: AST(SGOT) 17 U/L (15-37); Alanine Aminotransfer ALT/SGPT 19 U/L (13-56); Albumin, Serum 3.3 g/dL (3.2-5.0); Alkaline Phosphatase 87 U/L (45-117); Anion Gap 2 (5-15); BUN 18 mg/dL (7-18); BUN/Creat Ratio 25.1 RATIO (10-20); Calcium,Total 9.3 mg/dL (8.5-10.1); Chloride 107 mmol/L (98-107); Creatinine, Serum 0.72 mg/dL (0.55-1.02); EST Glomerular Filtration Rate 90 mL/min (>60); Est Glom Filt Rate - Afr Amer 109 mL/min (>60); Globulin 3.2 g/dL (2.2-4.2); Glucose 152 mg/dL (74-106); Potassium 4.1 mmol/L (3.5-5.1); Protein, Total 6.5 g/dL (6.4-8.2); Sodium Level 138 mmol/L (136-145); Thyroid Stim Hormone (TSH) 1.43 uIU/mL (0.358-3.74)
== END | disposition home or self-care (01) ==
PROVIDERS: PCP Family Medicine Geriatric Medicine; Referring Provider Family Medicine Geriatric Medicine; Visit Provider Family Medicine Geriatric Medicine
DX: E11.65 Type 2 diabetes mellitus with hyperglycemia (principal); I10 Essential (primary) hypertension
CPT/HCPCS: 36415; 80053; 84443; 85025

== ENCOUNTER → 2024-01-14 | Outpatient (CLI) | payer BC, SELFPAY ==
--- NOTE | 2024-01-14 13:03 | BI_ITS ---
MAMMOGRAPHY - BILATERAL SCREENING REASON FOR EXAM: Female, 53 years old. Routine annual screening examination. PERTINENT HISTORY: Aunt with breast cancer. Grandfather with breast cancer. TECHNIQUE: Digital bilateral breast carla (3D mammographic acquisition) in the CC and MLO projections. 2-D mediolateral oblique (MLO) and craniocaudad (CC) views of both breasts were obtained. CAD: Full Field Digital Mammography with Computer Added Detection was performed. COMPARISON: Comparison is made with prior study December 04, 2022 and November 20, 2020. FINDINGS: Breast Composition: The breasts are almost entirely fatty. There are no dominant masses or suspicious calcifications. No other significant abnormalities are identified. There has been no significant change since the prior study. BI/SCRN MAMM (CAD)W/CARLA BILAT IMPRESSION: Stable bilateral screening mammogram. Yearly follow-up mammogram recommended. (A) ASSESSMENT CATEGORY: BIRADS Category 1: Negative. A letter regarding these results will be sent to the patient by the facility within 30 days. Approximately 10% of breast cancers are not detected by mammography. A normal mammogram should not delay biopsy of a clinically suspicious abnormality. [id number] Electronically Signed: Bandar Garcia MD at 15:10 EDT ,
--- NOTE | 2024-01-14 14:32 | NEURO ---
NCS and/or EMG Patient Report Ordering Doctor: Shashank Tai Chi DATE OF SERVICE: 01/14/24 Shona presents with complaints of pain in the left elbow and hand. She reports intermittent hand numbness. Electrodiagnostic findings: Left median motor nerve demonstrates prolonged latency with normal amplitude and reduced conduction velocity. Left ulnar motor response is within normal limits, including conduction across the elbow. Prolonged left median F?wave. Prolonged left median sensory latency at the wrist. Normal left ulnar and radial sensory responses. Needle EMG testing was performed the left upper limbs. All muscles tested showed no evidence of denervation with normal motor unit action potentials. Electrodiagnostic impression: This is an abnormal study in the left upper limb 1. Electrodiagnostic findings are suggestive of left-sided median mononeuropathy. This is consistent with a mild to moderate left carpal tunnel syndrome. 2. No electrodiagnostic evidence for ulnar neuropathy, including cubital tunnel syndrome. 3. No electrodiagnostic evidence is noted for cervical radiculopathy. Multi Select Codes Neurology Neurology Interp Codes: 55462-85 Musc test done w/n test comp (interp) and 59027-21 Nrv cndj tst 5-6 studies (interp)
== END | disposition home or self-care (01) ==
LOC: OPBI 13:01
PROVIDERS: PCP Family Medicine Geriatric Medicine; Referring Provider Family Medicine Geriatric Medicine; Visit Provider Family Medicine Geriatric Medicine
DX: Z12.31 Encounter for screening mammogram for malignant neoplasm of breast (principal); Z80.3 Family history of malignant neoplasm of breast; R20.9 Unspecified disturbances of skin sensation; G56.02 Carpal tunnel syndrome, left upper limb
CPT/HCPCS: 77063; 77067; 95886; 95909

== ENCOUNTER 2024-02-20 04:11 | Emergency (ER) | payer BC, SELFPAY ==
[2024-02-20 04:11] VITALS: BP 120/63; PULSE 74; RESP 16; TEMP 36.8; O2SAT 98; BMI 28.9
[2024-02-20] MEDS: 0.9% Normal Saline (1000mL) 1,000 ML 999 ML IV (05:19)
[2024-02-20] MEDS: Morphine 4 MG/ML Syringe IV (05:19)
[2024-02-20] MEDS: Ondansetron 4 MG/2 ML Vial IV (05:19)
[2024-02-20 05:25] LABS: Mucous, Urine 0 SEEN /hpf (<or=2+); Red Blood Cells-Urine 0 SEEN /hpf (0-5)
[2024-02-20 05:27] LABS: Absolute Lymphocyte Count 4.05 X10^3/uL (0.83-4.51); Absolute Neutrophil Count 5.9 X10^3/uL (2.0-7.7); Basophil# 0.12 X10^3/uL; Eosinophil# 0.25 X10^3/uL; Eosinophils% 2.2 % (0-5); Hematocrit 43.8 % (37-47); Hemoglobin 14.6 g/dL (12.0-15.0); Lymphocyte # 4.05 X10^3/ul (0.83-4.51); Lymphocyte % 35.4 % (19-41); Mean Corp Hgb Conc 33.3 g/dL (32-36); Mean Corpuscular Hgb 30.9 pg (27.0-32.0); Mean Corpuscular Volume 92.6 fL (81-99); Mean Platelet Vol. 9.5 fl (6.2-12.0); Monocyte# 1.03 X10^3/uL; NRBC Flagged by Analyzer 0 % (0-5); Neutrophil % 51.5 % (47-70); Platelet Count 397 K/mm3 (150-450); RBC Distribution Width CV 14.5 % (11.6-14.6); RBC Distribution Width SD 49.1 fl (35.1-43.9); Red Blood Count 4.73 M/mm3 (4.2-5.4); White Blood Count 11.5 K/mm3 (4.4-11.0)
[2024-02-20 05:28] LABS: Color, Urine Yellow (Yellow); Glucose, Dipstick 1000 mg/dl (Normal); Ketone-Dipstick Negative (Negative); Leukocyte Esterase-Dipstick 500 /ul (Negative); Nitrite-Dipstick Negative (Negative); Occult Blood-Urine 25 /ul (Negative); Protein-Dipstick 30 mg/dl (Negative); Specific Gravity, Urine 1.015 (1.002-1.030); Urine Bilirubin Dipstick Negative (Negative); Urine Clarity Sl. Cloudy (Clear); Urine Urobilinogen Normal (Normal)
[2024-02-20 05:49] LABS: AST(SGOT) 12 U/L (15-37); Alanine Aminotransfer ALT/SGPT 20 U/L (13-56); Albumin, Serum 3.4 g/dL (3.2-5.0); Alkaline Phosphatase 95 U/L (45-117); Anion Gap 4 (5-15); BUN 18 mg/dL (7-18); BUN/Creat Ratio 24.1 RATIO (10-20); Bilirubin, Direct 0.11 mg/dL (0.00-0.30); Calcium,Total 9.6 mg/dL (8.5-10.1); Chloride 101 mmol/L (98-107); Creatinine, Serum 0.75 mg/dL (0.55-1.02); EST Glomerular Filtration Rate 86 mL/min (>60); Est Glom Filt Rate - Afr Amer 104 mL/min (>60); Estimated Creatinine Clearance 96.46 ml/min; Globulin 3.5 g/dL (2.2-4.2); Glucose 180 mg/dL (74-106); Lipase 18 U/L (13-75); Potassium 3.5 mmol/L (3.5-5.1); Protein, Total 6.9 g/dL (6.4-8.2); Sodium Level 135 mmol/L (136-145)
[2024-02-20 05:57] LABS: Bacteria 1+ /hpf (None Seen); Squamous Epithelial Cells - UA 0-5 SEEN /hpf (5-10); White Blood Cells 25-50 SEEN /hpf (0-5)
[2024-02-20 06:11] VITALS: BP 99/54; PULSE 72; RESP 16; O2SAT 98
[2024-02-20] MEDS: Ceftriaxone 1 GM/50 ML BAG IV (06:16)
--- NOTE | 2024-02-20 06:36 | EX.ED.DYSGE1 ---
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 She states that she has had right sided abdominal/back pain with nausea and vomiting for the past few days. She denies any fevers or chills diarrhea dysuria or known sick contacts. She states that there has been no blood or discoloration to her bouts of vomiting. She states symptoms do not seem to be improving and secondary to this she comes in for evaluation. 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 Bruising Chronic cough Contact with or exposure to other viral diseases Contraceptive management Depression Diabetes mellitus DVT (deep venous thrombosis) Easy bruising Excessive bleeding Gastric reflux History of echocardiogram History of kidney stones Injury of head and neck Leg cramps Leukocytosis Menorrhagia with irregular cycle Migraine headache Multifocal pneumonia Sleep apnea Smoker URI (upper respiratory infection) Wears dentures Wears glasses Home Medications ?Medication ?Instructions ?Recorded ?Last Taken ?Type metformin 500 mg tablet 1,000 mg PO BID diabetes 02/28/14 11/26/19 16:00 History atorvastatin 40 mg tablet 80 mg PO DAILY cholesterol 11/26/19 11/25/19 History clopidogrel 75 mg tablet 75 mg PO DAILY 12/14/19 07/05/22 History warfarin 5 mg tablet 7 mg PO DAILY DVT 12/14/19 07/05/22 History biotin 5,000 mcg disintegrating 10,000 mcg PO DAILY 04/03/20 Unknown History tablet pantoprazole 40 mg tablet,delayed 40 mg PO DAILY 04/03/20 07/09/22 History release doxepin 10 mg capsule 10 mg PO PRN PRN Sleep 12/14/20 Unknown History escitalopram oxalate 20 mg tablet 20 mg PO DAILY 12/14/20 Unknown History (Lexapro) bupropion HCl 150 mg tablet,12 hr 150 mg PO BID 07/05/22 Unknown History sustained-release valsartan 160 mg tablet 160 mg PO DAILY 07/05/22 07/09/22 History sennosides 8.6 mg-docusate sodium 1 tab PO BID PRN Constipation 11/25/22 Unknown History 50 mg tablet (Senexon-S) dapagliflozin propanediol 10 mg 10 mg PO DAILY 05/15/23 Unknown History tablet (Farxiga) pioglitazone 30 mg tablet 30 mg PO DAILY Diabetes 05/15/23 Unknown History levofloxacin 750 mg tablet 750 mg PO DAILY #5 tabs 05/17/23 Unknown Rx metronidazole 500 mg tablet 500 mg PO Q6H #40 tabs 06/10/23 Unknown Rx ondansetron 4 mg disintegrating 4 mg PO Q8H PRN PRN Nausea #10 tabs 06/26/23 Unknown Rx tablet ondansetron 4 mg disintegrating 4 mg PO Q8H PRN PRN Nausea #10 tabs 07/25/23 Unknown Rx tablet tramadol 50 mg tablet 50 mg PO Q8H PRN pain #10 tabs 07/25/23 Unknown Rx polysaccharide iron complex 150 mg 150 mg PO BID #180 caps 02/19/24 Unknown Rx iron capsule (Ferrex) ondansetron 4 mg disintegrating 4 mg PO TID PRN nausea and 02/20/24 Unknown Rx tablet vomiting #21 tabs oxycodone-acetaminophen 5 mg-325 1 tab PO Q6H PRN pain 3 days #12 02/20/24 Unknown Rx mg tablet (Percocet) tabs sulfamethoxazole 800 1 tab PO BID 7 days #14 tabs 02/20/24 Unknown Rx mg-trimethoprim 160 mg tablet (Bactrim DS) Allergy/AdvReac Type Severity Reaction Status Date / Time latex Allergy Mild rash Verified 02/20/24 04:12 Penicillins (PCN) Allergy Hives Verified 02/20/24 04:12 Family History Brother Diabetes Father Diabetes Mother Diabetes Uncle Diabetes Skin cancer Colon cancer Uncle Diabetes Aunt Breast cancer Surgical History H/O lithotripsy H/O tubal ligation History of embolectomy History of esophagogastroduodenoscopy (EGD) Hx of cholecystectomy Hx of partial nephrectomy Status post endometrial ablation Social History household members: family current occupational status: employed current occupation: [employer] history of recent travel: No sexually active: No Smoking Status: Current every day smoker tobacco type: cigarettes alcohol intake: never substance use type: does not use what type of physical activity do you participate in: other seatbelt use: always do you feel safe at home: Yes additional social history: single ROS ROS ED Constitutional Constitutional ED: Denies chills or fever(s) Eyes Eyes: Denies blurry vision or change in vision ENT ENT ED: Denies sore throat Cardiovascular Cardiovascular: Denies chest pain or palpitations Respiratory/Chest Respiratory/Chest: Denies cough or dyspnea Gastrointestinal Gastrointestinal: Reports abdominal pain, nausea and vomiting; Denies diarrhea Genitourinary Genitourinary ED: Denies dysuria or hematuria Musculoskeletal Musculoskeletal: Reports back pain; Denies myalgias Integumentary Denies rash Neurologic Neurologic: Denies headache(s) Hematologic/Lymphatic Hematologic/Lymphatic: Reports easy bleeding and easy bruising EXAM Physical Exam Const Vital Signs: 02/20/24 04:11 Temperature 98.2 F Temperature Source Oral Pulse Rate 74 Respiratory Rate 16 Blood Pressure 120/63 Blood Pressure Mean 82 Pulse Ox 98 Oxygen Delivery Method Room Air Positive well nourished and well developed General Appearance ED: well developed; Negative for pallor HEENT HEENT Narrative: Normocephalic atraumatic No tongue or lip swelling no oral lesions no airway edema or compromise Eyes PERRL and EOMs intact bilaterally General Eye ED: Negative for scleral icterus Neck supple Neck Narrative: No nuchal rigidity or meningeal signs Resp normal respiratory effort and clear to auscultation bilaterally Cardio regular rate and regular rhythm Rate: other Other Details: Radial and carotid pulses are equal and symmetric GI non-distended and no masses GI Narrative: Abdomen is soft and nondistended with normal active bowel sounds. Patient has pain with palpation along the lateral right sided abdominal region without voluntary guarding or rigidity. No pulsatile mass or fluid wave Auscultation: normoactive bowel sounds Palpation: soft Back/Spine Back/Spine Narrative: Positive right CVA pain noted Extremity normal to inspection Extremity Narrative: No asymmetric edema no pitting edema negative Homans' sign bilaterally Neuro oriented x3, CN's II-XII intact bilaterally and no sensory deficits noted Sensorium / Orientation: alert Motor Exam: strength 5/5 throughout Psych mental status grossly normal Skin no rashes or lesions noted Skin Narrative: No overlying soft tissue changes to suggest trauma or infection General Skin Exam: Negative for jaundice or pallor [facility] MDM MDM Narrative Medical decision making narrative: Patient arrived to ER with stable vitals and reported right sided abdominal/back pain with bouts of nausea and vomiting. Differential diagnosis is a viral stomach infection such as [place] versus rotavirus versus biliary colic versus acute cholecystitis versus pancreatitis versus UTI/pyelonephritis and/or kidney stone. Secondary to his basic labs and urine sample were obtained. Lab work shows slight leukocytosis without acute kidney injury or left shift changes. The patient's urine sample shows +1 bacteria with 25-50 white blood cells and no contamination. With the fact she has nausea vomiting as well as right flank and abdominal pain this is most likely pyelonephritis. As she is not showing physical exam or laboratory findings consistent with systemic infection/sepsis and she does not have signs of DAVID there is no need for admission and therefore should be given antibiotics and symptom control and is otherwise safe for discharge. History & Record Review Discussion w/independent historian: Patient and Family Lab Data Attestation: I reviewed the patient's lab results. Labs: Laboratory Results - last 24 hr 02/20/24 02/20/24 05:14 05:21 WBC 11.5 H RBC 4.73 Hgb 14.6 Hct 43.8 MCV 92.6 MCH 30.9 MCHC 33.3 RDW Std Deviation 49.1 H RDW Coeff of Edvin 14.5 Plt Count 397 MPV 9.5 Immature Gran % (Auto) 0.900 Neut % (Auto) 51.5 Lymph % (Auto) 35.4 Green % (Auto) 9.0 Eos % (Auto) 2.2 Baso % (Auto) 1.0 Absolute Neuts (auto) 5.9 Absolute Lymphs (auto) 4.05 Nucleated RBC % 0 Sodium 135 L Potassium 3.5 Chloride 101 Carbon Dioxide 30.0 Anion Gap 4 L BUN 18 Creatinine 0.75 Estim Creat Clear Calc 96.46 Est GFR (MDRD) Af Amer 104 Est GFR (MDRD) Non-Af 86 BUN/Creatinine Ratio 24.1 H Glucose 180 H Calcium 9.6 Total Bilirubin 0.30 Direct Bilirubin 0.11 AST 12 L ALT 20 Alkaline Phosphatase 95 Total Protein 6.9 Albumin 3.4 Globulin 3.5 Lipase 18 Urine Color Yellow Urine Clarity Sl. 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 Instructions: ED Pyelonephritis, Female (Adult), ED Vomiting (Adult) Prescriptions: New sulfamethoxazole-trimethoprim [Bactrim DS] 800-160 mg tablet 1 tab PO BID 7 Days Qty: 14 0RF ondansetron 4 mg tablet,disintegrating 4 mg PO TID PRN (Reason: nausea and vomiting) Qty: 21 0RF oxycodone-acetaminophen [Percocet] 5-325 mg tablet 1 tab PO Q6H PRN (Reason: pain) 3 Days Qty: 12 0RF No Action metformin 500 MG tablet 1,000 mg PO BID Patient Comments: atorvastatin 40 MG tablet 80 mg PO DAILY clopidogrel 75 MG tablet 75 mg PO DAILY warfarin 5 MG tablet 7 mg PO DAILY pantoprazole 40 MG tablet 40 mg PO DAILY biotin 5,000 MCG tablet,disintegrating 10,000 mcg PO DAILY sennosides-docusate sodium [Senexon-S] 8.6-50 mg tablet 1 tab PO BID PRN (Reason: Constipation) doxepin 10 mg capsule 10 mg PO PRN PRN (Reason: Sleep) escitalopram oxalate [Lexapro] 20 mg tablet 20 mg PO DAILY Patient Comments: TAKE 1 TABLET BY MOUTH EVERY DAY bupropion HCl 150 mg tablet sustained-release 12 hr 150 mg PO BID Patient Comments: TAKE 1 TABLET ORALLY TWICE PER DAY FOR 90 DAYS valsartan 160 mg tablet 160 mg PO DAILY Patient Comments: TAKE 1 TABLET BY MOUTH EVERY DAY ondansetron 4 mg tablet,disintegrating 4 mg PO Q8H PRN PRN (Reason: Nausea) Qty: 10 0RF dapagliflozin propanediol [Farxiga] 10 mg tablet 10 mg PO DAILY pioglitazone 30 mg tablet 30 mg PO DAILY Patient Comments: TAKE 1 TABLET ORALLY ONCE PER DAY FOR 30 DAYS levofloxacin 750 mg tablet 750 mg PO DAILY Qty: 5 0RF metronidazole [metronidazole] 500 mg tablet 500 mg PO Q6H Qty: 40 0RF ondansetron 4 mg tablet,disintegrating 4 mg PO Q8H PRN PRN (Reason: Nausea) Qty: 10 0RF tramadol 50 mg tablet 50 mg PO Q8H PRN (Reason: pain) Qty: 10 0RF polysaccharide iron complex [Ferrex 150] 150 mg iron capsule 150 mg PO BID Qty: 180 1RF Primary Care Provider: Shashank Tai Chi Referrals: Shashank Tai Chi, MD [Primary Care Provider] - Print Language: Jordanian Disposition Disposition: Home, Self Care Discharge Date/Time: 02/20/24 07:11
[2024-02-20 06:44] VITALS: BP 110/57; PULSE 67; RESP 16; TEMP 37.1; O2SAT 99
== END 2024-02-20 07:11 | disposition home or self-care (01) ==
PROVIDERS: Emergency Provider Emergency Medicine; PCP Family Medicine Geriatric Medicine; Visit Provider Emergency Medicine
DX: N12 Tubulo-interstitial nephritis, not specified as acute or chronic (principal); E11.9 Type 2 diabetes mellitus without complications; K21.9 Gastro-esophageal reflux disease without esophagitis; G47.30 Sleep apnea, unspecified; Z79.84 Long term (current) use of oral hypoglycemic drugs; Z79.899 Other long term (current) drug therapy; Z79.01 Long term (current) use of anticoagulants; Z86.718 Personal history of other venous thrombosis and embolism
CPT/HCPCS: 80048; 80076; 81001; 83690; 85025; 87077; 87086; 87088; 87186; 87631; 96365; 96375; 99283; J2405

== ENCOUNTER → 2024-03-01 | Outpatient (CLI) | payer BC, SELFPAY ==
[2024-03-01 13:45] LABS: Absolute Lymphocyte Count 3.13 X10^3/uL (0.83-4.51); Absolute Neutrophil Count 4.5 X10^3/uL (2.0-7.7); Basophil# 0.13 X10^3/uL; Basophil% 1.5 % (0-1); Eosinophil# 0.21 X10^3/uL; Eosinophils% 2.4 % (0-5); Hematocrit 43.2 % (37-47); Hemoglobin 14.3 g/dL (12.0-15.0); Lymphocyte # 3.13 X10^3/ul (0.83-4.51); Lymphocyte % 36.1 % (19-41); Mean Corp Hgb Conc 33.1 g/dL (32-36); Mean Corpuscular Hgb 30.9 pg (27.0-32.0); Mean Corpuscular Volume 93.3 fL (81-99); Mean Platelet Vol. 9.6 fl (6.2-12.0); Monocyte# 0.66 X10^3/uL; Monocyte% 7.6 % (0-10); NRBC Flagged by Analyzer 0 % (0-5); Neutrophil % 51.8 % (47-70); Platelet Count 393 K/mm3 (150-450); RBC Distribution Width SD 47.8 fl (35.1-43.9); Red Blood Count 4.63 M/mm3 (4.2-5.4); White Blood Count 8.7 K/mm3 (4.4-11.0)
[2024-03-01 14:31] LABS: ALB/GLOB Ratio 0.9 RATIO (0.9-2.4); AST(SGOT) 33 U/L (15-37); Alanine Aminotransfer ALT/SGPT 21 U/L (13-56); Albumin, Serum 3.2 g/dL (3.2-5.0); Alkaline Phosphatase 91 U/L (45-117); Anion Gap 5 (5-15); BUN 23 mg/dL (7-18); BUN/Creat Ratio 27.1 RATIO (10-20); Calcium,Total 9.2 mg/dL (8.5-10.1); Chloride 106 mmol/L (98-107); Creatinine, Serum 0.85 mg/dL (0.55-1.02); EST Glomerular Filtration Rate 74 mL/min (>60); Est Glom Filt Rate - Afr Amer 90 mL/min (>60); Globulin 3.6 g/dL (2.2-4.2); Glucose 199 mg/dL (74-106); Potassium 4.3 mmol/L (3.5-5.1); Protein, Total 6.8 g/dL (6.4-8.2); Sodium Level 138 mmol/L (136-145)
== END | disposition home or self-care (01) ==
LOC: POLAB3 13:24
PROVIDERS: PCP Family Medicine Geriatric Medicine; Visit Provider Family Medicine Geriatric Medicine
DX: I10 Essential (primary) hypertension (principal); E11.65 Type 2 diabetes mellitus with hyperglycemia
CPT/HCPCS: 36415; 80053; 84443; 85025

== ENCOUNTER 2024-04-01 07:56 | Emergency (ER) | payer BC, SELFPAY ==
[2024-04-01 07:57] VITALS: BP 165/79; PULSE 115; RESP 18; TEMP 36.6; O2SAT 96; BMI 33.8
[2024-04-01 08:31] LABS: Absolute Lymphocyte Count 1.77 X10^3/uL (0.83-4.51); Absolute Neutrophil Count 7.8 X10^3/uL (2.0-7.7); Basophil# 0.06 X10^3/uL; Basophil% 0.6 % (0-1); Eosinophil# 0.09 X10^3/uL; Eosinophils% 0.9 % (0-5); Lymphocyte # 1.77 X10^3/ul (0.83-4.51); Lymphocyte % 17.5 % (19-41); Mean Corp Hgb Conc 33.3 g/dL (32-36); Mean Corpuscular Hgb 30.6 pg (27.0-32.0); Mean Corpuscular Volume 91.7 fL (81-99); Mean Platelet Vol. 10.3 fl (6.2-12.0); Monocyte# 0.38 X10^3/uL; Monocyte% 3.8 % (0-10); NRBC Flagged by Analyzer 0 % (0-5); Neutrophil # 7.77 X10^3/uL (2.7-7.7); Neutrophil % 76.7 % (47-70); Platelet Count 287 K/mm3 (150-450); RBC Distribution Width SD 43.8 fl (35.1-43.9); Red Blood Count 4.58 M/mm3 (4.2-5.4); White Blood Count 10.1 K/mm3 (4.4-11.0)
[2024-04-01 08:37] LABS: International Normalized Ratio 1.5; Prothrombin Time (Protime)PT. 18.1 SECONDS (11.7-14.9)
[2024-04-01 08:41] LABS: AST(SGOT) 55 U/L (15-37); Alanine Aminotransfer ALT/SGPT 38 U/L (13-56); Albumin, Serum 3.2 g/dL (3.2-5.0); Alkaline Phosphatase 130 U/L (45-117); Anion Gap 7 (5-15); BUN 20 mg/dL (7-18); BUN/Creat Ratio 22.6 RATIO (10-20); Bilirubin, Direct 0.08 mg/dL (0.00-0.30); Calcium,Total 9.5 mg/dL (8.5-10.1); Chloride 103 mmol/L (98-107); Creatinine, Serum 0.89 mg/dL (0.55-1.02); EST Glomerular Filtration Rate 71 mL/min (>60); Est Glom Filt Rate - Afr Amer 86 mL/min (>60); Estimated Creatinine Clearance 87.89 ml/min; Globulin 3.7 g/dL (2.2-4.2); Glucose 412 mg/dL (74-106); Potassium 4.3 mmol/L (3.5-5.1); Protein, Total 6.9 g/dL (6.4-8.2); Sodium Level 136 mmol/L (136-145)
[2024-04-01 08:45] LABS: Mucous, Urine 0 SEEN /hpf (<or=2+); Red Blood Cells-Urine 0 SEEN /hpf (0-5); Squamous Epithelial Cells - UA 0 SEEN /hpf (5-10)
[2024-04-01 08:46] LABS: Color, Urine Yellow (Yellow); Glucose, Dipstick 1000 mg/dl (Normal); Ketone-Dipstick Negative (Negative); Leukocyte Esterase-Dipstick 500 /ul (Negative); Nitrite-Dipstick Positive (Negative); Occult Blood-Urine 250 /ul (Negative); Protein-Dipstick 30 mg/dl (Negative); Urine Bilirubin Dipstick Negative (Negative); Urine Clarity Cloudy (Clear); Urine Urobilinogen Normal (Normal)
[2024-04-01] MEDS: 0.9% Normal Saline (1000mL) 1,000 ML 1000 ML IV (08:51)
--- NOTE | 2024-04-01 08:58 | EX.ED.DYSGE1 ---
HPI History of Present Illness Chief Complaint: Hyperglycemia Informant: patient, family and EMS Narrative Narrative: 53-year-old female presenting to the emergency room with hyperglycemia. Patient called the ambulance this morning because she got out of bed felt chilled and shaky. She states she was trying to make it to the bathroom had urinary incontinence. She states that her blood sugar was was high (around 425). She has not taken her diabetes medicine in over a week. She states that it is upsetting her stomach which she states when she had a few doses of Ozempic. She is post to see her doctor again in about 6 days. Patient states now she feels very hot like she might have a fever. She denies any respiratory symptoms no vomiting diarrhea. States that her mouth feels dry. [facility] Medical History URI (upper respiratory infection) Contact with or exposure to other viral diseases Multifocal pneumonia Sleep apnea History of kidney stones Migraine headache Wears dentures Wears glasses Bruising Depression Anxiety DVT (deep venous thrombosis) Easy bruising Excessive bleeding Injury of head and neck Gastric reflux Smoker Chronic cough Leg cramps History of echocardiogram Contraceptive management Menorrhagia with irregular cycle 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 Leukocytosis Diabetes mellitus Home Medications ?Medication ?Instructions ?Recorded ?Last Taken ?Type metformin 500 mg tablet 1,000 mg PO BID diabetes 02/28/14 11/26/19 16:00 History atorvastatin 40 mg tablet 80 mg PO DAILY cholesterol 11/26/19 11/25/19 History clopidogrel 75 mg tablet 75 mg PO DAILY 12/14/19 07/05/22 History warfarin 5 mg tablet 7 mg PO DAILY DVT 12/14/19 07/05/22 History biotin 5,000 mcg disintegrating 10,000 mcg PO DAILY 04/03/20 Unknown History tablet pantoprazole 40 mg tablet,delayed 40 mg PO DAILY 04/03/20 07/09/22 History release doxepin 10 mg capsule 10 mg PO PRN PRN Sleep 12/14/20 Unknown History escitalopram oxalate 20 mg tablet 20 mg PO DAILY 12/14/20 Unknown History (Lexapro) bupropion HCl 150 mg tablet,12 hr 150 mg PO BID 07/05/22 Unknown History sustained-release valsartan 160 mg tablet 160 mg PO DAILY 07/05/22 07/09/22 History sennosides 8.6 mg-docusate sodium 1 tab PO BID PRN Constipation 11/25/22 Unknown History 50 mg tablet (Senexon-S) dapagliflozin propanediol 10 mg 10 mg PO DAILY 05/15/23 Unknown History tablet (Farxiga) pioglitazone 30 mg tablet 30 mg PO DAILY Diabetes 05/15/23 Unknown History levofloxacin 750 mg tablet 750 mg PO DAILY #5 tabs 05/17/23 Unknown Rx metronidazole 500 mg tablet 500 mg PO Q6H #40 tabs 06/10/23 Unknown Rx ondansetron 4 mg disintegrating 4 mg PO Q8H PRN PRN Nausea #10 tabs 06/26/23 Unknown Rx tablet ondansetron 4 mg disintegrating 4 mg PO Q8H PRN PRN Nausea #10 tabs 07/25/23 Unknown Rx tablet tramadol 50 mg tablet 50 mg PO Q8H PRN pain #10 tabs 07/25/23 Unknown Rx polysaccharide iron complex 150 mg 150 mg PO BID #180 caps 02/19/24 Unknown Rx iron capsule (Ferrex) ondansetron 4 mg disintegrating 4 mg PO TID PRN nausea and 02/20/24 Unknown Rx tablet vomiting #21 tabs oxycodone-acetaminophen 5 mg-325 1 tab PO Q6H PRN pain 3 days #12 02/20/24 Unknown Rx mg tablet (Percocet) tabs sulfamethoxazole 800 1 tab PO BID 7 days #14 tabs 02/20/24 Unknown Rx mg-trimethoprim 160 mg tablet (Bactrim DS) sulfamethoxazole 800 1 tab PO BID #14 TABLETS 04/01/24 Unknown Rx mg-trimethoprim 160 mg tablet Allergy/AdvReac Type Severity Reaction Status Date / Time latex Allergy Mild rash Verified 04/01/24 08:00 Penicillins (PCN) Allergy Hives Verified 04/01/24 08:00 Family History Brother Diabetes Father Diabetes Mother Diabetes Uncle Diabetes Skin cancer Colon cancer Uncle Diabetes Aunt Breast cancer Surgical History Status post endometrial ablation History of esophagogastroduodenoscopy (EGD) Hx of partial nephrectomy History of embolectomy H/O tubal ligation Hx of cholecystectomy H/O lithotripsy Social History household members: family current occupational status: employed current occupation: [employer] history of recent travel: No sexually active: No Smoking Status: Current every day smoker tobacco type: cigarettes alcohol intake: never substance use type: does not use what type of physical activity do you participate in: other seatbelt use: always do you feel safe at home: Yes additional social history: single ROS ROS ED ROS Narrative Shaky and weak Constitutional Constitutional ED: Reports chills; Denies fever(s) or weight loss Eyes Eyes: Denies change in vision or diplopia ENT ENT ED: Denies ear pain, rhinorrhea or sore throat Cardiovascular Cardiovascular: Denies chest pain, orthopnea, palpitations or racing heartbeat Respiratory/Chest Respiratory/Chest: Denies cough, dyspnea or orthopnea Gastrointestinal Gastrointestinal: Reports nausea; Denies abdominal pain, diarrhea or vomiting Genitourinary Genitourinary ED: Denies dysuria, hematuria or urinary frequency Musculoskeletal Musculoskeletal: Denies arthralgias or myalgias Integumentary Denies abscess or rash Neurologic Neurologic: Denies headache(s) or weakness Psychiatric Psychiatric: Denies anxiety, depression, suicidal ideation or suicidal thoughts Endocrine Endocrinology: Denies polydipsia, polyphagia or polyuria Allergic/Immunologic Allergic/Immunologic ED: Denies mouth swelling, tongue swelling or urticaria EXAM Physical Exam Const Vital Signs: 04/01/24 07:57 04/01/24 07:57 04/01/24 09:58 Temperature 97.9 F Temperature Source Oral Pulse Rate 115 H 90 Respiratory Rate 18 21 H Respiratory Effort Normal Non-Labored Respiratory Pattern Normal Blood Pressure 165/79 H 106/58 L Blood Pressure Mean 107 74 Pulse Ox 96 98 Oxygen Delivery Method Room Air 04/01/24 11:06 Temperature Temperature Source Pulse Rate 81 Respiratory Rate 21 H Respiratory Effort Respiratory Pattern Blood Pressure 109/49 L Blood Pressure Mean 69 Pulse Ox 100 Oxygen Delivery Method Positive well nourished and well developed General Appearance ED: well developed and NAD HEENT Reports normocephalic, head/scalp atraumatic and moist mucous membranes Eyes PERRL and EOMs intact bilaterally Neck no lymphadenopathy, supple and no JVD Resp normal respiratory effort and clear to auscultation bilaterally Cardio regular rate, regular rhythm and no murmurs GI normal to inspection, nondistended, normoactive bowel sounds and non-tender Palpation: soft Back/Spine no CVA tenderness and normal ROM Extremity normal to inspection General Extremety ED: Negative for edema General Extremity: Negative for edema Neuro oriented x3 and CN's II-XII intact bilaterally Sensorium / Orientation: alert Motor Exam: strength 5/5 throughout Psych mental status grossly normal Mood & Affect: Negative for depressed or tearful Skin no rashes or lesions noted and no wounds MDM MDM MDM Narrative Medical decision making narrative: Differential diagnosis includes diabetic hyperglycemia secondary to noncompliance infection (UTI) electrolyte abnormalities acid-base disturbance anemia dehydration liver dysfunction renal dysfunction White count 10.1 hemoglobin of 14 platelet count 287 INR subtherapeutic at 1.5 normal coags BUN 20 creatinine 0.89 glucose 412 LFTs showed AST 55 alk phos 130 urinalysis positive nitrates greater than 100 white cells 1+ bacteria positive leukocyte esterase. This was sent for culture. Patient received a liter of IV fluids and her blood sugar is down almost 100 points. I spoke with the patient's primary care doctor. Her take an extra dose of her Coumadin tonight. She is going to see primary care tomorrow at 0900 hrs. When to give her a dose of insulin through the IV here. He will be speaking with her tomorrow regarding her diabetes medicines. Family will be able to stay with her monitor blood sugar today. She was encouraged to eat. I will write for Bactrim as her last urine culture showed Proteus which was sensitive to Bactrim but resistant to Macrobid. History & Record Review Discussion w/independent historian: Patient and Family Lab Data Attestation: I reviewed the patient's lab results. Labs: Laboratory Results - last 24 hr 04/01/24 04/01/24 04/01/24 08:00 08:12 10:05 WBC 10.1 RBC 4.58 Hgb 14.0 Hct 42.0 MCV 91.7 MCH 30.6 MCHC 33.3 RDW Std Deviation 43.8 RDW Coeff of Edvin 13.0 Plt Count 287 MPV 10.3 Immature Gran % (Auto) 0.500 Neut % (Auto) 76.7 H Lymph % (Auto) 17.5 L [place] % (Auto) 3.8 Eos % (Auto) 0.9 Baso % (Auto) 0.6 Absolute Neuts (auto) 7.8 H Absolute Lymphs (auto) 1.77 Nucleated RBC % 0 PT 18.1 H INR 1.5 Sodium 136 Potassium 4.3 Chloride 103 Carbon Dioxide 27.0 Anion Gap 7 BUN 20 H Creatinine 0.89 Estim Creat Clear Calc 87.89 Est GFR (MDRD) Af Amer 86 Est GFR (MDRD) Non-Af 71 BUN/Creatinine Ratio 22.6 H Glucose 412 H Calcium 9.5 Total Bilirubin 0.20 Direct Bilirubin 0.08 AST 55 H ALT 38 Alkaline Phosphatase 130 H Total Protein 6.9 Albumin 3.2 Globulin 3.7 Urine Color Yellow Urine Clarity Cloudy Urine pH 6.0 Ur Specific [place] 1.010 Urine Protein 30 H Urine Glucose (UA) 1000 H Urine Ketones Negative Urine Occult Blood 250 H Urine Nitrite Positive H Urine Bilirubin Negative Urine Urobilinogen Normal Ur Leukocyte Esterase 500 H Urine RBC 0 SEEN Urine WBC >100 SEEN Ur Squamous Epith Cells 0 SEEN Urine Bacteria 1+ Urine Mucus 0 SEEN POC Glucose 335 H Management Discussion w/another healthcare provider: PCP (Dr Tai) Discharge Plan Triage Chief Complaint: Hyperglycemia ED Provider: Kyree Ariza Dx/Rx/DC Orders Clinical Impression: Diabetes mellitus with hyperglycemia, UTI (urinary tract infection), Subtherapeutic international normalized ratio (INR) Instructions: UTIs Understanding Prescriptions: New sulfamethoxazole-trimethoprim 800-160 mg tablet 1 tab PO BID Qty: 14 0RF No Action metformin 500 MG tablet 1,000 mg PO BID Patient Comments: atorvastatin 40 MG tablet 80 mg PO DAILY clopidogrel 75 MG tablet 75 mg PO DAILY warfarin 5 MG tablet 7 mg PO DAILY pantoprazole 40 MG tablet 40 mg PO DAILY biotin 5,000 MCG tablet,disintegrating 10,000 mcg PO DAILY sennosides-docusate sodium [Senexon-S] 8.6-50 mg tablet 1 tab PO BID PRN (Reason: Constipation) doxepin 10 mg capsule 10 mg PO PRN PRN (Reason: Sleep) escitalopram oxalate [Lexapro] 20 mg tablet 20 mg PO DAILY Patient Comments: TAKE 1 TABLET BY MOUTH EVERY DAY bupropion HCl 150 mg tablet sustained-release 12 hr 150 mg PO BID Patient Comments: TAKE 1 TABLET ORALLY TWICE PER DAY FOR 90 DAYS valsartan 160 mg tablet 160 mg PO DAILY Patient Comments: TAKE 1 TABLET BY MOUTH EVERY DAY ondansetron 4 mg tablet,disintegrating 4 mg PO Q8H PRN PRN (Reason: Nausea) Qty: 10 0RF dapagliflozin propanediol [Farxiga] 10 mg tablet 10 mg PO DAILY pioglitazone 30 mg tablet 30 mg PO DAILY Patient Comments: TAKE 1 TABLET ORALLY ONCE PER DAY FOR 30 DAYS levofloxacin 750 mg tablet 750 mg PO DAILY Qty: 5 0RF metronidazole [metronidazole] 500 mg tablet 500 mg PO Q6H Qty: 40 0RF ondansetron 4 mg tablet,disintegrating 4 mg PO Q8H PRN PRN (Reason: Nausea) Qty: 10 0RF tramadol 50 mg tablet 50 mg PO Q8H PRN (Reason: pain) Qty: 10 0RF sulfamethoxazole-trimethoprim [Bactrim DS] 800-160 mg tablet 1 tab PO BID 7 Days Qty: 14 0RF ondansetron 4 mg tablet,disintegrating 4 mg PO TID PRN (Reason: nausea and vomiting) Qty: 21 0RF oxycodone-acetaminophen [Percocet] 5-325 mg tablet 1 tab PO Q6H PRN (Reason: pain) 3 Days Qty: 12 0RF polysaccharide iron complex [Ferrex 150] 150 mg iron capsule 150 mg PO BID Qty: 180 1RF Primary Care Provider: Shashank Tai Chi Referrals: Shashank Tai Chi, MD [Primary Care Provider] - 1 Day (at 0900 hours 02 Apr 2024) Activity Restrictions/Additional Instructions: Your INR today is 1.5. I would recommend taking an extra dose tonight of your warfarin. You are to see Dr. Tai tomorrow at 0900 hrs. to discuss your hyperglycemia. Your urine showed evidence of infection today and a culture was performed. Based on prior culture I have prescribed Bactrim as the antibiotic Print Language: Icelandic Disposition Disposition: Home, Self Care Discharge Date/Time: 04/01/24 11:34
[2024-04-01 09:11] LABS: Bacteria 1+ /hpf (None Seen); White Blood Cells >100 SEEN /hpf (0-5)
[2024-04-01 09:58] VITALS: BP 106/58; PULSE 90; RESP 21; O2SAT 98
[2024-04-01 10:24] LABS: Bedside Glucose 335 mg/dL (74-106)
[2024-04-01 11:06] VITALS: BP 109/49; PULSE 81; RESP 21; O2SAT 100
[2024-04-01] MEDS: Insulin Lispro 100 UNIT/ML VIAL (ADMELOG) 10 UNIT IV (11:29)
[2024-04-01] MEDS: Smz/Tmp Ds Tablet 1 TABLET PO (11:30)
[2024-04-01 16:31] LABS: Bedside Glucose 391 mg/dL (74-106)
== END 2024-04-01 11:34 | disposition home or self-care (01) ==
PROVIDERS: Emergency Provider Emergency Medicine; PCP Family Medicine Geriatric Medicine; Visit Provider Emergency Medicine
DX: E11.65 Type 2 diabetes mellitus with hyperglycemia (principal); N39.0 Urinary tract infection, site not specified; F17.210 Nicotine dependence, cigarettes, uncomplicated; G47.30 Sleep apnea, unspecified; R79.1 Abnormal coagulation profile; Z86.718 Personal history of other venous thrombosis and embolism
CPT/HCPCS: 80048; 80076; 81001; 82962; 85025; 85610; 87077; 87086; 87088; 87186; 96361; 96374; 99285; J7030; A4216

== ENCOUNTER → 2024-04-02 | Outpatient (CLI) | payer BC, SELFPAY | END | disposition home or self-care (01) | LOC: POLAB3 12:11 | PROVIDERS: PCP Family Medicine Geriatric Medicine; Visit Provider Family Medicine Geriatric Medicine | DX: N39.0 Urinary tract infection, site not specified (principal) | CPT/HCPCS: 87086; 87088 ==

== ENCOUNTER → 2024-04-08 | Outpatient (CLI) | payer BC, SELFPAY ==
--- NOTE | 2024-04-08 11:43 | CT_ITS ---
EXAM: CT ABDOMEN AND PELVIS WITH INTRAVENOUS CONTRAST CLINICAL INDICATION: ABD PAIN TECHNIQUE: Helically acquired images were obtained of the abdomen and pelvis with intravenous contrast. This CT exam was performed using one or more of the following dose reduction techniques: automated exposure control, adjustment of the mA and/or kV according to patient size, and/or use of iterative reconstruction technique. CONTRAST: Oral and amp; IV Gastrografin and amp; 100mL Isovue-300 COMPARISON: CT Abdomen Pelvis dated 05/15/2023 FINDINGS: LOWER THORAX: Normal. Lung bases are clear. No cardiomegaly. No pericardial effusion. ABDOMEN: LIVER: Normal. Homogeneous. No focal mass. GALLBLADDER AND BILE DUCTS: Cholecystectomy clips are in place. No intra- or extrahepatic biliary ductal dilation. PANCREAS: Normal. No focal cystic or solid mass. SPLEEN: Normal. Normal size without focal cystic or solid mass. ADRENALS: Normal. No nodules. KIDNEYS AND URETERS: Cortical scarring of the left kidney again noted. No hydronephrosis. STOMACH AND BOWEL: Normal. No bowel distention. No focal inflammatory change. PELVIS: APPENDIX: Appendix is visualized and normal in appearance. BLADDER: Normal. REPRODUCTIVE: Unremarkable as visualized. No mass. ABDOMEN and PELVIS: INTRAPERITONEAL SPACE: Normal. No ascites or other fluid collection. No free air. BONES/JOINTS: No suspicious lytic or blastic abnormality. SOFT TISSUES: Normal. No discrete abdominal or pelvic wall hernia. VASCULATURE: Normal. Abdominal aorta is non-dilated. LYMPH NODES: Normal. No enlarged lymph nodes. CT/Abdomen/Pelvis WITH Contrast IMPRESSION: No acute abdominal or pelvic abnormality.. Electronically Signed: Obi Parker MD at 15:38 EST ,
[2024-04-08 12:49] LABS: Absolute Lymphocyte Count 2.96 X10^3/uL (0.83-4.51); Absolute Neutrophil Count 7.8 X10^3/uL (2.0-7.7); Basophil# 0.11 X10^3/uL; Basophil% 0.9 % (0-1); Eosinophil# 0.22 X10^3/uL; Eosinophils% 1.8 % (0-5); Hematocrit 48.7 % (37-47); Hemoglobin 16.2 g/dL (12.0-15.0); Lymphocyte # 2.96 X10^3/ul (0.83-4.51); Lymphocyte % 24.5 % (19-41); Mean Corp Hgb Conc 33.3 g/dL (32-36); Mean Corpuscular Hgb 30.3 pg (27.0-32.0); Mean Platelet Vol. 9.7 fl (6.2-12.0); Monocyte# 0.86 X10^3/uL; Monocyte% 7.1 % (0-10); NRBC Flagged by Analyzer 0 % (0-5); Neutrophil % 64.7 % (47-70); Platelet Count 571 K/mm3 (150-450); RBC Distribution Width CV 13.2 % (11.6-14.6); RBC Distribution Width SD 44.2 fl (35.1-43.9); Red Blood Count 5.35 M/mm3 (4.2-5.4); White Blood Count 12.1 K/mm3 (4.4-11.0)
[2024-04-08 13:12] LABS: AST(SGOT) 17 U/L (15-37); Alanine Aminotransfer ALT/SGPT 14 U/L (13-56); Albumin, Serum 3.7 g/dL (3.2-5.0); Alkaline Phosphatase 103 U/L (45-117); Amylase 13 U/L (25-115); Anion Gap 6 (5-15); BUN 25 mg/dL (7-18); BUN/Creat Ratio 29.3 RATIO (10-20); Chloride 103 mmol/L (98-107); Creatinine, Serum 0.85 mg/dL (0.55-1.02); EST Glomerular Filtration Rate 74 mL/min (>60); Est Glom Filt Rate - Afr Amer 89 mL/min (>60); Globulin 3.8 g/dL (2.2-4.2); Glucose 131 mg/dL (74-106); Lipase 20 U/L (13-75); Potassium 4.2 mmol/L (3.5-5.1); Protein, Total 7.5 g/dL (6.4-8.2); Sodium Level 136 mmol/L (136-145)
[2024-04-08 14:17] LABS: Hemoglobin A1c 8.2 % (3.8-5.6)
== END | disposition home or self-care (01) ==
PROVIDERS: PCP Family Medicine Geriatric Medicine; Referring Provider Family Medicine Geriatric Medicine; Visit Provider Family Medicine Geriatric Medicine
DX: R10.9 Unspecified abdominal pain (principal); E11.65 Type 2 diabetes mellitus with hyperglycemia; K52.9 Noninfective gastroenteritis and colitis, unspecified; K85.90 Acute pancreatitis without necrosis or infection, unspecified; I10 Essential (primary) hypertension; N39.0 Urinary tract infection, site not specified
CPT/HCPCS: 36415; 74177; 80053; 82150; 83036; 83690; 85025; Q9967

== ENCOUNTER → 2024-05-20 | Outpatient (CLI) | payer BC, SELFPAY ==
[2024-05-20 13:31] LABS: Absolute Lymphocyte Count 3.34 X10^3/uL (0.83-4.51); Absolute Neutrophil Count 5.5 X10^3/uL (2.0-7.7); Basophil# 0.13 X10^3/uL; Basophil% 1.3 % (0-1); Eosinophil# 0.22 X10^3/uL; Eosinophils% 2.2 % (0-5); Hematocrit 44.3 % (37-47); Hemoglobin 14.7 g/dL (12.0-15.0); Lymphocyte # 3.34 X10^3/ul (0.83-4.51); Lymphocyte % 33.7 % (19-41); Mean Corp Hgb Conc 33.2 g/dL (32-36); Mean Corpuscular Hgb 30.8 pg (27.0-32.0); Mean Corpuscular Volume 92.9 fL (81-99); Mean Platelet Vol. 9.8 fl (6.2-12.0); Monocyte# 0.68 X10^3/uL; Monocyte% 6.9 % (0-10); NRBC Flagged by Analyzer 0 % (0-5); Neutrophil # 5.49 X10^3/uL (2.7-7.7); Neutrophil % 55.3 % (47-70); Platelet Count 398 K/mm3 (150-450); RBC Distribution Width CV 13.7 % (11.6-14.6); RBC Distribution Width SD 47.2 fl (35.1-43.9); Red Blood Count 4.77 M/mm3 (4.2-5.4); White Blood Count 9.9 K/mm3 (4.4-11.0)
[2024-05-20 14:02] LABS: AST(SGOT) 14 U/L (15-37); Alanine Aminotransfer ALT/SGPT 16 U/L (13-56); Albumin, Serum 3.4 g/dL (3.2-5.0); Alkaline Phosphatase 79 U/L (45-117); Anion Gap 2 (5-15); BUN 19 mg/dL (7-18); BUN/Creat Ratio 27.4 RATIO (10-20); Calcium,Total 9.5 mg/dL (8.5-10.1); Chloride 107 mmol/L (98-107); Creatinine, Serum 0.69 mg/dL (0.55-1.02); EST Glomerular Filtration Rate 94 mL/min (>60); Est Glom Filt Rate - Afr Amer 113 mL/min (>60); Globulin 3.3 g/dL (2.2-4.2); Glucose 174 mg/dL (74-106); Protein, Total 6.7 g/dL (6.4-8.2); Sodium Level 138 mmol/L (136-145)
== END | disposition home or self-care (01) ==
LOC: POLAB3 13:20
PROVIDERS: PCP Family Medicine Geriatric Medicine; Visit Provider Family Medicine Geriatric Medicine
DX: I10 Essential (primary) hypertension (principal); E11.65 Type 2 diabetes mellitus with hyperglycemia
CPT/HCPCS: 36415; 80053; 84443; 85025

== ENCOUNTER 2024-07-26 08:50 | Day surgery (SDC) | payer BC, SELFPAY ==
--- NOTE | 2024-07-21 14:55 | PAT.ANE_ITS ---
Pre-Assessment Diagnosis/Proposed Procedure Planned Operative Procedure(s): Colonoscopy,EGD Anesthesia History Anesthesia History - supervisor electronic coils: Anesthesia History - supervisor electronic coils Hx Hospitalization No 07/21/24 13:46 Any Problems With Anesthesia No 07/21/24 13:46 Cholinesterase deficiency No 07/21/24 13:46 You/Your Family Experience No 07/21/24 13:46 fever (hyperthermia) with Relationship Recent Exposure to Contagious No 06/06/24 11:04 Disease Does patient have nerve No 07/21/24 13:46 stimulator Patient instructed to have device shut off --Does patient have Pacemaker or ICD? When Was Last Pacemaker Check QUESTION #4 FULL TEXT: You/Your Family Experience fever (hyperthermia) with Anesthesia Last Oral Intake Last Oral intake: Last Oral Intake NPO since Meds taken in AM with sips of water? Meds patient instructed to take am of surgery PONV PONV - supervisor electronic coils: PONV - supervisor electronic coils Female Yes 07/21/24 13:46 HX of Motion Sickness No 07/21/24 13:46 HX of N/V After Surgery No 07/21/24 13:46 Non-Smoker No 07/21/24 13:46 Duration of Surgery greater No 07/21/24 13:46 than 60 minutes Number of Risk Factors 1 07/21/24 13:46 PONV Score Low Risk 07/21/24 13:46 Height & Weight Height & Weight: Anesthesia: Height & Weight Height 5 ft 7 in 06/06/24 11:04 Respiratory Assessment Respiratory Assessment - supervisor electronic coils: Respiratory Tract Infection Hx - supervisor electronic coils Hx Respiratory Tract Infection No 07/21/24 13:46 STOP Sleep Apnea STOP Sleep Apnea - supervisor electronic coils: STOP Sleep Apnea - supervisor electronic coils Hx Hypertension No 07/21/24 13:46 Hx Sleep Apnea Yes: NON-COMPLIANT 07/21/24 13:46 CPAP No 07/21/24 13:46 BIPAP No 07/21/24 13:46 Do you snore loudly (louder than talking or can be heard Do you often feel tired/ fatigued/ sleepy during daytime? Has anyone observed you stop breathing during sleep? STOP Results Positive 07/21/24 13:46 QUESTION #5 FULL TEXT : Do you snore loudly (louder than talking or can be heard through closed doors)? 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 Specify any problems Hx of Preganancy in last 3 No 07/21/24 13:46 Months Nurse Filling Out Transfusion VCHRISTIN 07/21/24 13:46 & Questions: Date: 07/21/24 07/21/24 13:46 Time: 13:47 07/21/24 13:46 Patient unable to answer at this time (ie. confused, unrespo /Reproduction History /Reproductive History - supervisor electronic coils: /Reproductive Hx- supervisor electronic coils Hx Now No 07/21/24 13:46 Gestational Age (in weeks): EDC: Hx Hx Para Hx Section SAB No 07/21/24 13:46 [facility] Medical History (Updated 07/21/24 @ 13:46 by Rosa Chavarria) Low iron High cholesterol Shortness of breath on exertion Hypertension URI (upper respiratory infection) Contact with or exposure to other viral diseases Multifocal pneumonia Sleep apnea History of kidney stones Migraine headache Hx of colonic polyp Wears dentures Wears glasses Bruising Depression Anxiety DVT (deep venous thrombosis) Easy bruising Excessive bleeding Injury of head and neck Gastric reflux Smoker Chronic cough Leg cramps History of echocardiogram Contraceptive management Menorrhagia with irregular cycle 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 Leukocytosis Diabetes mellitus Home Medications ?Medication ?Instructions ?Recorded ?Last Taken ?Type metformin 500 mg tablet 1,000 mg PO BID diabetes 11/26/19 16:00 History clopidogrel 75 mg tablet 75 mg PO DAILY 12/14/19 0208/22 History warfarin 5 mg tablet 8.5 mg PO DAILY DVT 12/14/19 07/05/22 History biotin 5,000 mcg disintegrating 10,000 mcg PO DAILY Unknown History tablet doxepin 10 mg capsule 10 mg PO PRN PRN Sleep 12/14 Unknown History bupropion HCl 150 mg tablet,12 hr 150 mg PO BID Unknown History sustained-release valsartan 160 mg tablet 160 mg PO DAILY 07/05/2212/22 History pioglitazone 30 mg tablet 30 mg PO DAILY Diabetes 05/02 09/22 Unknown History ondansetron 4 mg disintegrating 4 mg PO Q8H PRN PRN Na usea #10 tabs 06/26/23 Unknown Rx tablet insulin glargine U-300 conc 300 40 unit subcut QHS Unknown History unit/mL (3 mL) subcutaneous pen (Toujeo Max U-300 SoloStar) nicotine 14 mg/24 hr daily 1 patch transdermal Q24H DC N 04/21/24 Unknown History transdermal patch smoking cessation prochlorperazine maleate 10 mg 10 mg PO TID PRN nausea 04/21/24 Unknown History capsule,extended release rosuvastatin 40 mg tablet 40 mg PO QDAY 04/21/24 Unkno wn History venlafaxine 150 mg 150 mg PO DAILY 04/21/24 Unk nown History capsule,extended release 24 hr vonoprazan 20 mg tablet (Voquezna) 20 mg PO QDAY 04/21 Unknown History polysaccharide iron complex 150 mg 150 mg PO BID #180 caps 06/23/24 Unknown Rx iron capsule (Ferrex) sennosides 8.6 mg-docusate sodium 1 tab PO BID PRN PRN STOOL SOFTENER 07/21/24 Unknown History 50 mg tablet (Senexon-S) sucralfate 1 gram tablet 1 g PO BID 07/21/24 Unknown History Allergy/AdvReac Type Severity Reaction Status Date / Time latex Allergy Mild rash Verified 07/21/24 13:26 Penicillins (PCN) Allergy Hives Verified 07/21/24 13:26 Family History Brother Diabetes Father Diabetes Mother Diabetes Uncle Diabetes Skin cancer Colon cancer Uncle Diabetes Aunt Breast cancer Surgical History (Updated 07/21/24 @ 13:46 by Rosa Chavarria) Hx laparoscopic cholecystectomy Status post endometrial ablation History of esophagogastroduodenoscopy (EGD) Hx of partial nephrectomy History of embolectomy H/O tubal ligation Hx of cholecystectomy H/O lithotripsy Social History household members: family current occupational status: employed current occupation: [employer] history of recent travel: No sexually active: No Smoking Status: Current every day smoker tobacco type: cigarettes alcohol intake: current alcohol intake frequency: holidays/special occasions only substance use type: does not use what type of physical activity do you participate in: other seatbelt use: always do you feel safe at home: Yes additional social history: single Audit: Pertinent Findings Pertinent Findings EKG Perinent findings: July 25, 2023. Normal sinus rhythm. Echo (EF%) pertinent findings: November 27, 2019. Ejection fraction 60%. No aortic stenosis is noted. Recommendation Anesthesia Recommendation Anesthesia recommendation: OPTIMIZED for anesthesia (Recheck glucose on day of surgery.)
[2024-07-26] VITALS (8 sets, daily range): BP systolic 96–132; BP diastolic 57–72; PULSE 57–70; RESP 16–18; TEMP 36.4–37.1; O2SAT 95–98; BMI 29.7
--- NOTE | 2024-07-26 | ESO_PTH ---
PATIENT: ROGERIO KIRKLAND LOC: EN U#:[id number] AGE/SX: 54/F ROOM: RE07/26/[address]: Dr. Zach Larry DO : 1970 BED: DIS: 07/26/2024 SPEC #: [id number] RECD: 07/26/24 12:40 STATUS: KEI FAISAL #: [id number] VICKY: 07/26/24 00:[address]: Zach Larry DEPT: SURGICAL PATHOLOGY RECD BY: Jese Damina ENTERED: 07/26/24 12:41 SP TYPE: EMELY FREEMAN DR: Dr. Shashank Tai MD Tissues: A - Esophagus, NOS B - Ascending colon C - Ileum, NOS D - Transverse colon Procedures: Special Stain Group I Surgery Specimen Level IV Alcian Blue/PAS (control) HEADER OPERATION: Colonoscopy, EGD biopsy PRE-OP DIAGNOSIS: Nausea, dry heaves, change in bowel habits, constipation, personal history of colonic polyps TISSUE SUBMITTED: A- Distal esophagus biopsy, B- Ascending polyps x2 biopsy, C- Terminal ileum biopsy, D- Transverse polyp biopsy MICROSCOPIC DIAGNOSIS A. Distal esophagus, biopsy: Fragments of gastroesophageal mucosa with focal intestinal metaplasia (goblet cell metaplasia), consistent with Vidal's esophagus. Mild to moderate chronic inflammation and minimal acute inflammation. Negative for dysplasia. See comment. B. Ascending colon polyps x2, biopsy: Fragments of tubular adenoma. C. Terminal ileum, biopsy: Fragments of small intestinal mucosa, no pathologic diagnosis. D. Transverse polyp, biopsy: Fragments of tubular adenoma. . 07/27/2024 COMMENT A. Alcian blue/PAS stain with matched control is used in the evaluation of the specimen. Immunohistochemistry ([id number]) for P53 and Ki-67 will be performed, and results will be reported separately. MICROSCOPIC DESCRIPTION Slides are reviewed. GROSS DESCRIPTION A. Received in fixative is one container labeled with the patient's name and designated Distal esophagus biopsy. The specimen consists of multiple irregular fragments of light negro soft tissue that in aggregate measure 0.7 x 0.5 x 0.2 cm. The specimen is totally submitted in one cassette. B. Received in fixative is one container labeled with the patient's name and designated Ascending polyp biopsy. The specimen consists of two irregular fragments of light negro soft tissue that in aggregate measure 0.8 x 0.5 x 0.1 cm. The specimen is totally submitted in one cassette. C. Received in fixative is one container labeled with the patient's name and designated Terminal ileum biopsy. The specimen consists of two irregular fragments of light negro soft tissue that in aggregate measure 0.7 x 0.5 x 0.1 cm. The specimen is totally submitted in one cassette. D. Received in fixative is one container labeled with the patient's name and designated Transverse polyp biopsy. The specimen consists of two irregular fragments of light negro soft tissue that in aggregate measure 0.8 x 0.4 x 0.1 cm. The specimen is totally submitted in one cassette. 07/26/2024 TC:1 [facility]:[id number] ADDENDUM ADDENDUM ADDENDUM ADDENDUM ADDENDUM ADDENDUM ADDENDUM ADDENDUM ADDENDUM ADDENDUM 11/15/2024 08:48 ADDENDUM 11/15/2024 08:48 ADDENDUM 11/15/2024 08:48 ADDENDUM 11/15/2024 08:48 ADDENDUM 11/15/2024 08:48 [facility] - TISSUE CYPHER - VIDAL'S ESOPHAGUS REPORT (BLOCK A1) RISK CLASS: INTERMEDIATE RISK SCORE: 6.0 5-YEAR PROBABILITY OF PROGRESSION: 9% Please see complete above mentioned consultation report in EMR
--- NOTE | 2024-07-26 | IMM_PTH ---
PATIENT: ROGERIO KIRKLAND LOC: EN U#:[id number] AGE/SX: 54/F ROOM: RE07/26/[address]: Dr. Zach Larry DO : 1970 BED: DIS: 07/26/2024 SPEC #: [id number] RECD: 07/27/24 11:32 STATUS: KEI RERandall #: [id number] VICKY: 07/26/24 00:[address]: Zach Larry DEPT: IMMUNOHISTOCHEMISTRY RECD BY: Dm Lal ENTERED: 07/27/24 11:33 SP TYPE: IMMUNO OTHR DR: Dr. Shashank Tai MD Tissues: A - Esophagus, NOS Procedures: P53 (initial) KI-67 (add) PHYSICIAN & INSTITUTION [place] [address] SPECIMEN INFORMATION: Tissue Source: A- Distal esophagus biopsy Clinical Info: Nausea, dry heaves, change in bowel habits, constipation, personal history of colonic polyps Specimen Number: [id number] CPT code: 11105,83382 METHODOLOGY: Deparaffinized sections of prefer/formalin-fixed tissue or PAP/DQ stained slides are incubated with monoclonal/polyclonal antibodies/oligonucleotide probes. Localization is made via biotin free immunoperoxidase method. Appropriate controls are performed and reacted as expected. Results on target cell population are indicated in the following table: RESULTS: ANTIBODY / CLONE RESULT Block A P53 (DO-7) positive, focal, weak (wild type pattern) Ki-67 (30-9) positive, low These tests were developed and their performance characteristics determined by [facility]. They may not have been cleared or approved by the U.S. Food and Drug Administration. The FDA has determined that such clearance or approval is not necessary. The above immunohistochemical/dualISH markers are ordered and reviewed by the Pathologist. INTERPRETATION: A. Distal esophagus, biopsy: Negative for dysplasia. 07/28/2024
--- NOTE | 2024-07-26 10:08 | PCM.HP.STD ---
HPI - General General Date of Admission: 07/26/24 Date of Service: 07/26/24 Chief Complaint: GERD HPI Narrative ROGERIO KIRKLAND, is a 54 F who presents for endoscopic evaluation of GERD 53y/o female presents for consultation with complaints of N/V. 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 CT A&P 04/08/2024 w/ IV contrast - negative for acute findings Voquezna 20mg QD EGD 2023 ([facility]) EGD: 12/18/2020 ([facility]) Torres's w/o dysplasia, moderate gastritis [facility] six 3-6mm polyps - adenomas ABD US 08/25/2023 liver steatosis, kPa 7.7 GES 10/24/2023 Briefly delayed gastric emptying at 1 hour, with subsequent normalization. GES 08/15/2023 rapid gastric emptying - denies any medication or dietary changes to account for symptoms - c/o no energy - c/o chronic nausea - nausea every day feel full all the time - nausea began when she started taking Ozempic - nausea has persisted - discontinued Ozempic - reports she is not actually vomiting just dry heaves - denies any abdominal pain - denies anything improving her symptoms - started Voquezna 4 months ago - discontinued pantoprazole at that time - she reports this helped the nausea I can eat better - wakes in the morning without nausea - does not eat breakfast - reports the nausea starts once she gets to work - before she eats anything - caffeine - coffee 1-2cup a day and pepsi 5-6 cans a day - NSAIDS - naproxen 2 tabs PRN for headaches and generalized pain - 5 out of 7 days a week - EtOH - denies any in past year - very rare consumption prior to this - Smoking - she is a smoker, daily, tobacco - denies any illicit drug use - denies any marijuana use - can go a week without a BM - stools are formed and loose - stools are small - bowel habits changed for her about 1 year ago - denies any bleeding - prior to this she was having a normal BM daily - formed [facility] Medical History Low iron High cholesterol Shortness of breath on exertion Hypertension URI (upper respiratory infection) Contact with or exposure to other viral diseases Multifocal pneumonia Sleep apnea History of kidney stones Migraine headache Hx of colonic polyp Wears dentures Wears glasses Bruising Depression Anxiety DVT (deep venous thrombosis) Easy bruising Excessive bleeding Injury of head and neck Gastric reflux Smoker Chronic cough Leg cramps History of echocardiogram Contraceptive management Menorrhagia with irregular cycle 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 Leukocytosis Diabetes mellitus Home Medications ?Medication ?Instructions ?Recorded ?Last Taken ?Type metformin 500 mg tablet 1,000 mg PO BID diabetes 02/28/14 11/26/19 16:00 History clopidogrel 75 mg tablet 75 mg PO DAILY 12/14/19 07/22/24 History warfarin 5 mg tablet 8.5 mg PO DAILY DVT 12/14/19 07/22/24 History biotin 5,000 mcg disintegrating 10,000 mcg PO DAILY 04/03/20 Unknown History tablet doxepin 10 mg capsule 10 mg PO PRN PRN Sleep 12/14/20 Unknown History bupropion HCl 150 mg tablet,12 hr 150 mg PO BID 07/05/22 Unknown History sustained-release valsartan 160 mg tablet 160 mg PO DAILY 07/05/22 07/09/22 History pioglitazone 30 mg tablet 30 mg PO DAILY Diabetes 05/15/23 Unknown History ondansetron 4 mg disintegrating 4 mg PO Q8H PRN PRN Nausea #10 tabs 06/26/23 Unknown Rx tablet insulin glargine U-300 conc 300 40 unit subcut QHS 04/21/24 Unknown History unit/mL (3 mL) subcutaneous pen (Toujeo Max U-300 SoloStar) nicotine 14 mg/24 hr daily 1 patch transdermal Q24H PRN 04/21/24 Unknown History transdermal patch smoking cessation prochlorperazine maleate 10 mg 10 mg PO TID PRN nausea 04/21/24 Unknown History capsule,extended release rosuvastatin 40 mg tablet 40 mg PO QDAY 04/21/24 Unknown History venlafaxine 150 mg 150 mg PO DAILY 04/21/24 Unknown History capsule,extended release 24 hr vonoprazan 20 mg tablet (Voquezna) 20 mg PO QDAY 04/21/24 Unknown History polysaccharide iron complex 150 mg 150 mg PO BID #180 caps 06/23/24 Unknown Rx iron capsule (Ferrex) sennosides 8.6 mg-docusate sodium 1 tab PO BID PRN PRN STOOL SOFTENER 07/21/24 Unknown History 50 mg tablet (Senexon-S) sucralfate 1 gram tablet 1 g PO BID 07/21/24 Unknown History Allergy/AdvReac Type Severity Reaction Status Date / Time latex Allergy Mild rash Verified 07/26/24 09:05 Penicillins (PCN) Allergy Hives Verified 07/26/24 09:05 Family History Brother Diabetes Father Diabetes Mother Diabetes Uncle Diabetes Skin cancer Colon cancer Uncle Diabetes Aunt Breast cancer Surgical History Hx laparoscopic cholecystectomy Status post endometrial ablation History of esophagogastroduodenoscopy (EGD) Hx of partial nephrectomy History of embolectomy H/O tubal ligation Hx of cholecystectomy H/O lithotripsy Social History household members: family current occupational status: employed current occupation: [employer] history of recent travel: No sexually active: No Smoking Status: Current every day smoker tobacco type: cigarettes alcohol intake: current alcohol intake frequency: holidays/special occasions only substance use type: does not use what type of physical activity do you participate in: other seatbelt use: always do you feel safe at home: Yes additional social history: single ROS Constitutional Constitutional: Denies fatigue, fever(s), poor appetite, weight gain or weight loss Gastrointestinal Gastrointestinal: Denies belching, bloating, change in bowel habits, change in stool character, chewing difficulty, coffee ground emesis, constipation, cramping, diarrhea, dyspepsia, dysphagia, early satiety, excessive flatus, fecal incontinence, heartburn, hematemesis, hematochezia, hemorrhoids, loose stools, melena, nausea, odynophagia, rectal bleeding, tenesmus, vomiting or weight changes Vital Signs Vital Signs Vital Signs: 07/26/24 09:06 07/26/24 09:06 Temperature 98.4 F Temperature Source Temporal Pulse Rate 70 Respiratory Rate 16 Respiratory Pattern Normal Blood Pressure 132/61 H Blood Pressure Mean 84 Blood Pressure Source Monitor Blood Pressure Position Semi-Fowlers Blood Pressure Location Left Arm Pulse Ox 98 Oxygen Delivery Method Room Air Weight Weight: 189 lb 9.561 oz Body Mass Index (BMI) 29.7 Assessment & Plan Assessment/Plan (1) Personal history of colonic polyps: (2) Constipation: QUALIFIERS: Constipation type: unspecified constipation type Qualified Code(s): K59.00 - Constipation, unspecified (3) Change in bowel habits: (4) Dry heaves: (5) Nausea: PLAN: Assessment and Plan Assessment and Plan (1) Nausea: Status: Acute (2) Dry heaves: Status: Acute (3) Change in bowel habits: Status: Acute (4) Constipation: Status: Acute Qualifiers: Constipation type: unspecified constipation type Qualified Code(s): K59.00 - Constipation, unspecified (5) Personal history of colonic polyps: Status: Acute Medications: Discontinued atorvastatin Discontinued Reason: Pt no longer taking 80 mg PO DAILY cholesterol pantoprazole Discontinued Reason: Pt no longer taking 40 mg PO DAILY levofloxacin Discontinued Reason: Pt no longer taking 750 mg PO DAILY 5 tabs 0RF metronidazole Discontinued Reason: Pt no longer taking 500 mg PO Q6H 40 tabs 0RF Plan 53y/o female presents for consultation with complaints of N/V. 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 She reports after starting Ozempic earlier this year she developed nausea, dry heaves, early satiety, and constipation. Despite discontinuing Ozempic her symptoms have persisted. She reports a negative EGD this past summer. GES was negative and ABD US revealed liver steatosis with kPa of 7.7 (F2). She has noted some improvement in UGI symptoms with switching from pantoprazole to Voquezna. She will start Linzess 145mcg daily and we have discussed the importance of smoking cessation. She will proceed with colonoscopy and follow-up post procedure. She will require treatment to hold Plavix and Coumadin prior to procedure Will discuss liver elastography results at next office visit (kPA 7.7 = F2) - treatment with Rezdiffra has likely potential of exacerbating nausea Patient Instructions: 1. Absolutely avoid use of nicotine patch and tobacco use in combination 2. Smoking cessation encouraged 3. Continue Voquezna 20mg once daily 4. Discontinue Sennosides - docusate stool softener 5. Start Linzess 145mcg once daily 6. Ondansetron continue as needed for nausea, okay to take 1 tablet (4mg) every 8 hours 7. Colonoscopy 8. Benefiber 2tsp once a day in 8 ounces of water 9. Reduce caffeine intake 10. Increase water intake 11. Follow-up in office 3 weeks post colonoscopy 12. Will discuss liver elastography results at next office visit (kPA 7.7 = F2) Plan Details Follow Up: 3 Months
--- NOTE | 2024-07-26 10:16 | PCM.PRE.AN2 ---
ASA Classification* ASA Classification ASA Classification: 2 Assessment & Plan Anesthesia* Anesthesia Assessment Anesthesia Assessment: Discussed sedation and/or anesthesia options, risks, benefits, and alternatives with patient/parents/legal guardian/POA. Questions invited. The patient/parents/legal guardian/POA seems to understand and agrees to proceed with anesthesia plan. Reviewed the physical assessment, medical history, allergy history and patient home medications list prior to surgery/procedure/anesthetic and documented any changes. Performed airway and anesthesia risk assessments. Anesthesia Type Anesthesia Type: MAC History Source History Obtained from:: Patient and Chart Anesthesia Focused Assessment* Temperature: 98.4 F Pulse Rate: 70 Blood Pressure: 132/61 Respiratory Rate: 16 Pulse Ox: 98 Airway Assessment Mouth opens: >3 cm Mallampati Score: II Focused Labs Anesthesia Preop lab: CBC WBC 11.3 K/mm3 (4.4-11.0) H 06/15/24 16:05 06/15/24 RBC 4.67 M/mm3 (4.2-5.4) 06/15/24 16:05 06/15/24 Hgb 14.1 g/dL (12.0-15.0) 06/15/24 16:05 06/15/24 Hct 42.4 % (37-47) 06/15/24 16:05 06/15/24 Plt Count 393 K/mm3 (150-450) 06/15/24 16:05 06/15/24 CHEMISTRY Potassium 3.6 mmol/L (3.5-5.1) 06/15/24 16:05 06/15/24 Sodium 135 mmol/L (136-145) L 06/15/24 16:05 06/15/24 Magnesium 1.9 mg/dL (1.6-2.6) 05/15/23 01:05 05/15/23 Phosphorus 3.6 mg/dL (2.5-4.9) 05/15/23 01:05 05/15/23 BUN 15 mg/dL (7-18) 06/15/24 16:05 06/15/24 Creatinine 0.61 mg/dL (0.55-1.02) 06/15/24 16:05 06/15/24 Glucose 277 mg/dL (74-106) H 06/15/24 16:05 06/15/24 POC Glucose 335 mg/dL (74-106) H 04/01/24 10:05 04/01/24 TSH 2.000 uIU/mL (0.358-3.740) 05/20/24 13:21 05/20/24 COAG PT 18.1 SECONDS (11.7-14.9) H 04/01/24 08:00 04/01/24 Urine Test Negative Negative 07/09/22 06:28 07/09/22 Pre-Assessment Diagnosis/Proposed Procedure Planned Operative Procedure(s): Colonoscopy,EGD Anesthesia History 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 When Was Last Pacemaker Check QUESTION #4 FULL TEXT: You/Your Family Experience fever (hyperthermia) with Anesthesia Last Oral Intake Last Oral intake: Last Oral Intake NPO since 07:00 07/26/24 09:06 Meds taken in AM with sips of No 07/26/24 09:06 water? Meds patient instructed to take am of surgery PONV PONV - salesperson household appliances: PONV - salesperson household appliances Female Yes 07/21/24 13:46 HX of Motion Sickness No 07/21/24 13:46 HX of N/V After Surgery No 07/21/24 13:46 Non-Smoker No 07/21/24 13:46 Duration of Surgery greater No 07/21/24 13:46 than 60 minutes Number of Risk Factors 1 07/21/24 13:46 PONV Score Low Risk 07/21/24 13:46 Height & Weight Height & Weight: Anesthesia: Height & Weight Height 5 ft 7 in 07/26/24 09:06 Weight: 86 kg 07/26/24 09:06 Body Mass Index (BMI) 29.7 07/26/24 09:06 Respiratory Assessment Respiratory Assessment - salesperson household appliances: Respiratory Tract Infection Hx - salesperson household appliances Hx Respiratory Tract Infection No 07/21/24 13:46 STOP Sleep Apnea STOP Sleep Apnea - salesperson household appliances: STOP Sleep Apnea - salesperson household appliances Hx Hypertension No 07/21/24 13:46 Hx Sleep Apnea Yes: NON-COMPLIANT 07/21/24 13:46 CPAP No 07/21/24 13:46 BIPAP No 07/21/24 13:46 Do you snore loudly (louder than talking or can be heard Do you often feel tired/ fatigued/ sleepy during daytime? Has anyone observed you stop breathing during sleep? STOP Results Positive 07/21/24 13:46 QUESTION #5 FULL TEXT : Do you snore loudly (louder than talking or can be heard through closed doors)? 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 Specify any problems Hx of Preganancy in last 3 No 07/21/24 13:46 Months Nurse Filling Out Transfusion VCHRISTIN 07/21/24 13:46 & Questions: Date: 07/21/24 07/21/24 13:46 Time: 13:47 07/21/24 13:46 Patient unable to answer at this time (ie. confused, unrespo /Reproduction History /Reproductive History - salesperson household appliances: /Reproductive Hx- salesperson household appliances Hx Now No 07/21/24 13:46 Gestational Age (in weeks): EDC: Hx Hx Para Hx Section SAB No 07/21/24 13:46 PFSH Medical History Low iron High cholesterol Shortness of breath on exertion Hypertension URI (upper respiratory infection) Contact with or exposure to other viral diseases Multifocal pneumonia Sleep apnea History of kidney stones Migraine headache Hx of colonic polyp Wears dentures Wears glasses Bruising Depression Anxiety DVT (deep venous thrombosis) Easy bruising Excessive bleeding Injury of head and neck Gastric reflux Smoker Chronic cough Leg cramps History of echocardiogram Contraceptive management Menorrhagia with irregular cycle 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 Leukocytosis Diabetes mellitus Home Medications ?Medication ?Instructions ?Recorded ?Last Taken ?Type metformin 500 mg tablet 1,000 mg PO BID diabetes 02/28/14 11/26/19 16:00 History clopidogrel 75 mg tablet 75 mg PO DAILY 12/14/19 07/22/24 History warfarin 5 mg tablet 8.5 mg PO DAILY DVT 12/14/19 07/22/24 History biotin 5,000 mcg disintegrating 10,000 mcg PO DAILY 04/03/20 Unknown History tablet doxepin 10 mg capsule 10 mg PO PRN PRN Sleep 12/14/20 Unknown History bupropion HCl 150 mg tablet,12 hr 150 mg PO BID 07/05/22 Unknown History sustained-release valsartan 160 mg tablet 160 mg PO DAILY 07/05/22 07/09/22 History pioglitazone 30 mg tablet 30 mg PO DAILY Diabetes 05/15/23 Unknown History ondansetron 4 mg disintegrating 4 mg PO Q8H PRN PRN Nausea #10 tabs 06/26/23 Unknown Rx tablet insulin glargine U-300 conc 300 40 unit subcut QHS 04/21/24 Unknown History unit/mL (3 mL) subcutaneous pen (Toujeo Max U-300 SoloStar) nicotine 14 mg/24 hr daily 1 patch transdermal Q24H PRN 04/21/24 Unknown History transdermal patch smoking cessation prochlorperazine maleate 10 mg 10 mg PO TID PRN nausea 04/21/24 Unknown History capsule,extended release rosuvastatin 40 mg tablet 40 mg PO QDAY 04/21/24 Unknown History venlafaxine 150 mg 150 mg PO DAILY 04/21/24 Unknown History capsule,extended release 24 hr vonoprazan 20 mg tablet (Voquezna) 20 mg PO QDAY 04/21/24 Unknown History polysaccharide iron complex 150 mg 150 mg PO BID #180 caps 06/23/24 Unknown Rx iron capsule (Ferrex) sennosides 8.6 mg-docusate sodium 1 tab PO BID PRN PRN STOOL SOFTENER 07/21/24 Unknown History 50 mg tablet (Senexon-S) sucralfate 1 gram tablet 1 g PO BID 07/21/24 Unknown History Allergy/AdvReac Type Severity Reaction Status Date / Time latex Allergy Mild rash Verified 07/26/24 09:05 Penicillins (PCN) Allergy Hives Verified 07/26/24 09:05 Family History Brother Diabetes Father Diabetes Mother Diabetes Uncle Diabetes Skin cancer Colon cancer Uncle Diabetes Aunt Breast cancer Surgical History Hx laparoscopic cholecystectomy Status post endometrial ablation History of esophagogastroduodenoscopy (EGD) Hx of partial nephrectomy History of embolectomy H/O tubal ligation Hx of cholecystectomy H/O lithotripsy Social History household members: family current occupational status: employed current occupation: [employer] history of recent travel: No sexually active: No Smoking Status: Current every day smoker tobacco type: cigarettes alcohol intake: current alcohol intake frequency: holidays/special occasions only substance use type: does not use what type of physical activity do you participate in: other seatbelt use: always do you feel safe at home: Yes additional social history: single Review of Systems (Anesthesia) ROS Narrative System reviewed and no additional complaints, except as documented.
[2024-07-26 10:54] LABS: Bedside Glucose 256 mg/dL (74-106)
--- NOTE | 2024-07-26 10:56 | OP.EGD_ITS ---
Patient Name: Shona Friend Procedure Date: 07/26/2024 10:15 AM Date of : 1970 Age: 54 Procedure: Upper GI endoscopy Indications: Functional Dyspepsia, Dyspepsia, Indigestion, Heartburn, Suspected esophageal reflux, Failure to respond to medical treatment Providers: Zach Larry DO Medicines: Monitored Anesthesia Care Patient Profile: This is a 54 year old female. Refer to note in patient chart for documentation of history and physical. Patient has symptoms of acute abdominal cramping and acute abdominal distention. Complications: No immediate complications. Procedure: Pre-Anesthesia Assessment: - Prior to the procedure, a History and Physical was performed, and patient medications and allergies were reviewed. The patient is competent. The risks and benefits of the procedure and the sedation options and risks were discussed with the patient. All questions were answered and informed consent was obtained. Patient identification and proposed procedure were verified by the physician in the pre-procedure area. Mental Status Examination: alert and oriented. Airway Examination: normal oropharyngeal airway and neck mobility. Respiratory Examination: clear to auscultation. CV Examination: normal. Prophylactic Antibiotics: The patient does not require prophylactic antibiotics. Prior Anticoagulants: The patient has taken no anticoagulant or antiplatelet agents except for NSAID medication. ASA Grade Assessment: III - A patient with severe systemic disease. After reviewing the risks and benefits, the patient was deemed in satisfactory condition to undergo the procedure. The anesthesia plan was to use monitored anesthesia care (MAC). Immediately prior to administration of medications, the patient was re-assessed for adequacy to receive sedatives. The heart rate, respiratory rate, oxygen saturations, blood pressure, adequacy of pulmonary ventilation, and response to care were monitored throughout the procedure. The physical status of the patient was re-assessed after the procedure. After obtaining informed consent, the endoscope was passed under direct vision. Throughout the procedure, the patient's blood pressure, pulse, and oxygen saturations were monitored continuously. The Colonoscope was introduced through the mouth, and advanced to the second part of duodenum. The upper GI endoscopy was accomplished without difficulty. The patient tolerated the procedure well. Scope In: 10:28:16 AM Scope Out: 10:31:53 AM Total Procedure Duration Time 0 hours 3 minutes 37 seconds Findings: The Z-line was irregular and was found 40 cm from the incisors. Biopsies were taken with a cold forceps for histology. Verification of patient identification for the specimen was done. Estimated blood loss was minimal. A small hiatal hernia was present. Patchy mildly erythematous mucosa without bleeding was found in the gastric body. The second portion of the duodenum was normal. Impression: - Z-line irregular, 40 cm from the incisors. Biopsied. - Small hiatal hernia. - Erythematous mucosa in the gastric body. - Normal second portion of the duodenum. Recommendation: - Discharge patient to home. - Resume previous diet. - Continue present medications. - Await pathology results. Procedure Code(s): --- Professional --- 66996, Esophagogastroduodenoscopy, flexible, transoral; with biopsy, single or multiple CPT copyright 2021 [employer]. All rights reserved. The codes documented in this report are preliminary and upon professional fee coder review may be revised to meet current compliance requirements. Zach Larry DO 07/26/2024 10:55:56 AM This report has been signed electronically. Number of Addenda: 0 Note Initiated On: 07/26/2024 10:15 AM
--- NOTE | 2024-07-26 10:56 | OP.CCLET_ITS ---
07/26/2024 Shashank Tai MD [address] [place] [address] Re : Upper GI endoscopy procedure for Shona Phuc Dear Dr. Tai This procedure was performed on Friday, July 26, 2024. My impressions and recommendations are as follows: Impressions : - Z-line irregular, 40 cm from the incisors. Biopsied. - Small hiatal hernia. - Erythematous mucosa in the gastric body. - Normal second portion of the duodenum. Recommendations : - Discharge patient to home. - Resume previous diet. - Continue present medications. - Await pathology results. My findings are described in the full procedure note, which is enclosed. If I can be of further assistance, please feel free to contact me at . Sincerely, Zach Larry, 07/26/2024 10:55:56 AM This report has been signed electronically.
--- NOTE | 2024-07-26 10:58 | PCM.POST.ANE ---
Anesthesia: Postop Eval I Current Vital Signs Temperature: 98.8 F Pulse Rate: 60 Blood Pressure: 102/61 Respiratory Rate: 16 Pulse Ox: 98 Oxygen Delivery Method: Room Air Assessment Airway patent: Yes Spontaneous unlabored respirations: Yes Mental status: Awake and Calm nausea: No Vomiting: No Anesthesia Complication: No Fluid Hydration Crystalloid volume administer (ml): 60 Total IV fluid infused: 60 Progress Note Anesthesia document: Postop Eval 1 completed: Yes
--- NOTE | 2024-07-26 11:02 | OP.CCLET_ITS ---
07/26/2024 Shashank Tai MD [address] [place] [address] Re : Colonoscopy procedure for Shona Phuc Dear Dr. Tai This procedure was performed on Friday, July 26, 2024. My impressions and recommendations are as follows: Impressions : - Preparation of the colon was fair. - Three 7 mm polyps in the transverse colon and in the ascending colon. - Stool in the rectum, in the recto-sigmoid colon, in the sigmoid colon, in the descending colon, at the splenic flexure and in the transverse colon. - Diverticulosis in the recto-sigmoid colon, in the sigmoid colon and in the descending colon. - Congested mucosa in the terminal ileum. - No specimens collected. Recommendations : - Discharge patient to home. - Resume previous diet. - Continue present medications. - Await pathology results. - Repeat colonoscopy in 3 months because the bowel preparation was suboptimal. - Return to GI office. My findings are described in the full procedure note, which is enclosed. If I can be of further assistance, please feel free to contact me at . Sincerely, Zach Larry, 07/26/2024 11:01:19 AM This report has been signed electronically.
--- NOTE | 2024-07-26 11:02 | OP.COLON_ITS ---
Patient Name: Shona Friend Procedure Date: 07/26/2024 10:32 AM Date of : 1970 Age: 54 Procedure: Colonoscopy Indications: Screening for colorectal malignant neoplasm, Incidental - Abdominal pain in the left lower quadrant Providers: Zach Larry DO Medicines: Monitored Anesthesia Care Patient Profile: This is a 54 year old female. Refer to note in patient chart for documentation of history and physical. Patient has symptoms of acute abdominal cramping and acute abdominal distention. Last Colonoscopy: none. The patient's first colonoscopy is today. Complications: No immediate complications. Procedure: Pre-Anesthesia Assessment: - Prior to the procedure, a History and Physical was performed, and patient medications and allergies were reviewed. The patient is competent. The risks and benefits of the procedure and the sedation options and risks were discussed with the patient. All questions were answered and informed consent was obtained. Patient identification and proposed procedure were verified by the physician in the pre-procedure area. Mental Status Examination: alert and oriented. Airway Examination: normal oropharyngeal airway and neck mobility. Respiratory Examination: clear to auscultation. CV Examination: normal. Prophylactic Antibiotics: The patient does not require prophylactic antibiotics. Prior Anticoagulants: The patient has taken no anticoagulant or antiplatelet agents except for NSAID medication. ASA Grade Assessment: III - A patient with severe systemic disease. After reviewing the risks and benefits, the patient was deemed in satisfactory condition to undergo the procedure. The anesthesia plan was to use monitored anesthesia care (MAC). Immediately prior to administration of medications, the patient was re-assessed for adequacy to receive sedatives. The heart rate, respiratory rate, oxygen saturations, blood pressure, adequacy of pulmonary ventilation, and response to care were monitored throughout the procedure. The physical status of the patient was re-assessed after the procedure. After I obtained informed consent, the scope was passed under direct vision. Throughout the procedure, the patient's blood pressure, pulse, and oxygen saturations were monitored continuously. The Colonoscope was introduced through the anus and advanced to the terminal ileum. The colonoscopy was performed without difficulty. The patient tolerated the procedure well. The quality of the bowel preparation was fair. The terminal ileum, ileocecal valve, appendiceal orifice, and rectum were photographed. Scope In: 10:34:09 AM Scope Withdrawal Time 0 hours 7 minutes 22 seconds Scope Out: 10:47:27 AM Total Procedure Duration Time 0 hours 13 minutes 18 seconds Findings: The perianal and digital rectal examinations were normal. Three sessile polyps were found in the transverse colon and ascending colon. The polyps were 7 mm in size. Stool was found in the rectum, in the recto-sigmoid colon, in the sigmoid colon, in the descending colon, at the splenic flexure and in the transverse colon, precluding visualization. Multiple small and large-mouthed diverticula were found in the recto-sigmoid colon, sigmoid colon and descending colon. A localized area of the terminal ileum was congested. Impression: - Preparation of the colon was fair. - Three 7 mm polyps in the transverse colon and in the ascending colon. - Stool in the rectum, in the recto-sigmoid colon, in the sigmoid colon, in the descending colon, at the splenic flexure and in the transverse colon. - Diverticulosis in the recto-sigmoid colon, in the sigmoid colon and in the descending colon. - Congested mucosa in the terminal ileum. - No specimens collected. Recommendation: - Discharge patient to home. - Resume previous diet. - Continue present medications. - Await pathology results. - Repeat colonoscopy in 3 months because the bowel preparation was suboptimal. - Return to GI office. Procedure Code(s): --- Professional --- G0121, Colorectal cancer screening; colonoscopy on individual not meeting criteria for high risk CPT copyright 2021 [employer]. All rights reserved. The codes documented in this report are preliminary and upon inspector technician review may be revised to meet current compliance requirements. Zach Larry DO 07/26/2024 11:01:19 AM This report has been signed electronically. Number of Addenda: 0 Note Initiated On: 07/26/2024 10:32 AM
--- NOTE | 2024-07-26 11:23 | PCM.POSTANE2 ---
Anesthesia Postop Eval I Sum Postop Eval Completion status Anesthesia document: Postop Eval 1 completed: Yes Anesthesia Postop Eval I Summary Anesthesia Postop Eval I Summary: Anesthesia Postop Eval I: Assessment Summary Airway patent Yes 07/26/24 10:59 [email or web address] Spontaneous unlabored Yes 07/26/24 10:59 [email or web address] respirations Mental status Awake,Calm 07/26/24 10:59 [email or web address] nausea No 07/26/24 10:59 [email or web address] Vomiting No 07/26/24 10:59 [email or web address] Anesthesia Postop Eval I: Fluid Summary Crystalloid volume administer 60 07/26/24 10:59 [email or web address] (ml) Colloids volume administered ( ml) Blood Product volume administered (ml) Total IV fluid infused 60 07/26/24 10:59 [email or web address] Anesthesia Postop Eval I: Summary Notes Anesthesia Complication No 07/26/24 10:59 [email or web address] Anesthesia Complication Comment: Post-operative progress note Anesthesia: Postop Eval II Evaluation Mental status: Awake and Calm Pain Level: 2 nausea: No Vomiting: No Complications Anesthesia Complication: No
== END 2024-07-26 11:42 | disposition home or self-care (01) ==
LOC: EN 08:53 → AC 08:53
PROVIDERS: PCP Family Medicine Geriatric Medicine; Referring Provider Family Medicine Geriatric Medicine; Visit Provider Internal Medicine Gastroenterology
PROC: 0DJD8ZZ Inspection of Lower Intestinal Tract, Via Natural or Artificial Opening Endoscopic (ICD-10-PCS; CPT 45378; principal; 2024-07-26 09:55)
DX: Z12.11 Encounter for screening for malignant neoplasm of colon (principal); E11.9 Type 2 diabetes mellitus without complications; Z79.4 Long term (current) use of insulin; D12.2 Benign neoplasm of ascending colon; D12.3 Benign neoplasm of transverse colon; K22.70 Barrett's esophagus without dysplasia; K44.9 Diaphragmatic hernia without obstruction or gangrene; K57.30 Diverticulosis of large intestine without perforation or abscess without bleeding; K21.9 Gastro-esophageal reflux disease without esophagitis; K76.0 Fatty (change of) liver, not elsewhere classified; I10 Essential (primary) hypertension; E78.00 Pure hypercholesterolemia, unspecified; F17.210 Nicotine dependence, cigarettes, uncomplicated; Z79.01 Long term (current) use of anticoagulants; Z79.02 Long term (current) use of antithrombotics/antiplatelets; Z79.84 Long term (current) use of oral hypoglycemic drugs; Z79.899 Other long term (current) drug therapy; Z86.0101 Personal history of adenomatous and serrated colon polyps; Z86.718 Personal history of other venous thrombosis and embolism
CPT/HCPCS: 45378; 43239; 82962; 88305; 88312; 88341; 88342; A4216; J2405

== ENCOUNTER → 2024-08-11 | Outpatient (CLI) | payer BC, SELFPAY ==
[2024-08-11 12:27] LABS: Bacteria 0 SEEN /hpf (None Seen); Mucous, Urine 0 SEEN /hpf (<or=2+); White Blood Cells 0 SEEN /hpf (0-5)
[2024-08-11 12:43] LABS: Absolute Lymphocyte Count 3.62 X10^3/uL (0.83-4.51); Absolute Neutrophil Count 6.3 X10^3/uL (2.0-7.7); Basophil# 0.11 X10^3/uL; Eosinophil# 0.24 X10^3/uL; Eosinophils% 2.2 % (0-5); Hematocrit 42.2 % (37-47); Hemoglobin 14.6 g/dL (12.0-15.0); Lymphocyte # 3.62 X10^3/ul (0.83-4.51); Mean Corp Hgb Conc 34.6 g/dL (32-36); Mean Corpuscular Hgb 31.5 pg (27.0-32.0); Mean Corpuscular Volume 91.1 fL (81-99); Monocyte# 0.62 X10^3/uL; Monocyte% 5.6 % (0-10); NRBC Flagged by Analyzer 0 % (0-5); Neutrophil # 6.34 X10^3/uL (2.7-7.7); Neutrophil % 57.7 % (47-70); Platelet Count 395 K/mm3 (150-450); RBC Distribution Width CV 13.8 % (11.6-14.6); RBC Distribution Width SD 46.4 fl (35.1-43.9); Red Blood Count 4.63 M/mm3 (4.2-5.4)
[2024-08-11 12:48] LABS: Color, Urine Yellow (Yellow); Glucose, Dipstick 1000 mg/dl (Normal); Ketone-Dipstick Negative (Negative); Leukocyte Esterase-Dipstick Negative /ul (Negative); Nitrite-Dipstick Negative (Negative); Occult Blood-Urine 10 /ul (Negative); Protein-Dipstick 15 mg/dl (Negative); Urine Bilirubin Dipstick Negative (Negative); Urine Clarity Sl. Cloudy (Clear); Urine Urobilinogen Normal (Normal)
[2024-08-11 12:59] LABS: Red Blood Cells-Urine 0-5 SEEN /hpf (0-5); Squamous Epithelial Cells - UA 0-5 SEEN /hpf (5-10)
[2024-08-11 14:10] LABS: ALB/GLOB Ratio 1.5 RATIO (0.9-2.4); AST(SGOT) 18 U/L (<=31); Alanine Aminotransfer ALT/SGPT 17 U/L (<=34); Alkaline Phosphatase 104 U/L (35-104); Anion Gap 11 (5-15); BUN 27 mg/dL (4-19); BUN/Creat Ratio 38.7 RATIO (10-20); Calcium,Total 10.1 mg/dL (7.6-11.0); Chloride 100 mmol/L (98-108); Creatinine, Serum 0.69 mg/dL (0.70-1.20); EST Glomerular Filtration Rate 103 (>60); Globulin 2.7 g/dL (2.2-4.2); Glucose 304 mg/dL (70-99); Potassium 4.2 mmol/L (3.3-5.1); Protein, Total 6.7 g/dL (5.9-8.4); Sodium Level 134 mmol/L (133-145); Total Bilirubin < 0.15 mg/dL (0.00-1.30)
== END | disposition home or self-care (01) ==
LOC: POLAB3 12:23
PROVIDERS: PCP Family Medicine Geriatric Medicine; Visit Provider Family Medicine Geriatric Medicine
DX: N39.0 Urinary tract infection, site not specified (principal); R53.83 Other fatigue
CPT/HCPCS: 36415; 80053; 81001; 84443; 85025

== ENCOUNTER → 2024-10-14 | Outpatient (CLI) | payer BC, SELFPAY ==
[2024-10-14 12:25] LABS: Hepatitis B Surface Antibody REAC
[2024-10-14 12:37] LABS: Hepatitis B Surface Antigen Nonreactive (Nonreactive); Hepatitis C Antibody Nonreactive (Nonreactive)
[2024-10-15 05:07] LABS: Hepatitis A AB, Total Negative (Negative); Hepatitis B Core Ab Total Negative (Negative)
== END | disposition home or self-care (01) ==
LOC: LAB 11:11
PROVIDERS: PCP Family Medicine Geriatric Medicine; Referring Provider Nurse Practitioner Acute Care; Visit Provider Nurse Practitioner Acute Care
DX: K76.0 Fatty (change of) liver, not elsewhere classified (principal)
CPT/HCPCS: 36415; 86704; 86706; 86708; 86803; 87340

== ENCOUNTER → 2024-11-10 | Outpatient (CLI) | payer BC, SELFPAY ==
--- NOTE | 2024-11-10 10:00 | US_ITS ---
PROCEDURE: ABD LIMITED W/ ELASTOGRAPHY REASON FOR EXAM: LIVER STEATOSIS COMPARISON: Prior study dated August 25, 2023. TECHNIQUE: Right upper quadrant abdominal ultrasound. [facility] shear wave elastography for non-invasive assessment of liver tissue stiffness. [facility] EPI[facility] Elite. FINDINGS: LIVER: Size: Unremarkable Length: 16.8 cm Echotexture: Diffusely echogenic suggesting fatty infiltration Contour: Normal Lesions: None identified Elastography: EQI Med: 7.3 kPa EQI Med Joey: 1.58 m/s IQR/Med: 20 %* GALLBLADDER: Surgically absent. COMMON BILE DUCT: Normal measuring 4 mm. . PANCREAS: Normal Visualized portions of the right kidney are unremarkable. No right upper quadrant ascites. US/ABD Limited w/ Elastography IMPRESSION: MODERATE HEPATIC FIBROSIS FATTY LIVER. Status post cholecystectomy. Reference Values: SRU <1.37 m/s (5.7kPa): No to mild fibrosis 1.37 m/s - 2.2 m/s: Moderate to severe fibrosis >2.2 m/s (15kPa): Significant fibrosis / cirrhosis METAVIR Score F2 or higher: 1.34 m/s (5.7kPa) F3 or higher: 1.55 m/s (7.3kPa) F4: 1.80 m/s (10kPa) * If the IQR/Med is >30%, the variance in the measurements is a large and the a ccuracy of the measurement may be in question. Reading Location: [place] [id number]
== END | disposition home or self-care (01) ==
LOC: US 09:59
PROVIDERS: PCP Family Medicine Geriatric Medicine; Referring Provider Nurse Practitioner Acute Care; Visit Provider Nurse Practitioner Acute Care
DX: K76.0 Fatty (change of) liver, not elsewhere classified (principal)
CPT/HCPCS: 76705; 76981

== ENCOUNTER 2024-11-29 05:41 | Day surgery (SDC) | payer BC, SELFPAY ==
--- NOTE | 2024-11-25 17:47 | PAT.ANESEVAL ---
Pre-Assessment Diagnosis/Proposed Procedure Planned Operative Procedure(s): CSCOPE Anesthesia History Anesthesia History - interventional radiologist: Anesthesia History - interventional radiologist Hx Hospitalization No 11/25/24 14:16 Any Problems With Anesthesia No 11/25/24 14:16 Cholinesterase deficiency No 11/25/24 14:16 You/Your Family Experience No 11/25/24 14:16 fever (hyperthermia) with Relationship Recent Exposure to Contagious No 07/26/24 09:06 Disease Does patient have nerve No 11/25/24 14:16 stimulator Patient instructed to have device shut off --Does patient have Pacemaker or ICD? When Was Last Pacemaker Check QUESTION #4 FULL TEXT: You/Your Family Experience fever (hyperthermia) with Anesthesia Last Oral Intake Last Oral intake: Last Oral Intake NPO since Meds taken in AM with sips of water? Meds patient instructed to take am of surgery PONV PONV - interventional radiologist: PONV - interventional radiologist Female Yes 11/25/24 14:16 HX of Motion Sickness No 11/25/24 14:16 HX of N/V After Surgery No 11/25/24 14:16 Non-Smoker No 11/25/24 14:16 Duration of Surgery greater No 11/25/24 14:16 than 60 minutes Number of Risk Factors 1 11/25/24 14:16 PONV Score Low Risk 11/25/24 14:16 Height & Weight Height & Weight: Anesthesia: Height & Weight Height 5 ft 7 in 07/26/24 09:06 Respiratory Assessment Respiratory Assessment - interventional radiologist: Respiratory Tract Infection Hx - interventional radiologist Hx Respiratory Tract Infection No 11/25/24 14:16 STOP Sleep Apnea STOP Sleep Apnea - interventional radiologist: STOP Sleep Apnea - interventional radiologist Hx Hypertension Yes: CONTROLLED WITH MED 11/25/24 14:16 Hx Sleep Apnea Yes 11/25/24 14:16 CPAP Yes: NONCOMPLIANT 11/25/24 14:16 BIPAP No 11/25/24 14:16 Do you snore loudly (louder than talking or can be heard Do you often feel tired/ fatigued/ sleepy during daytime? Has anyone observed you stop breathing during sleep? STOP Results Positive 11/25/24 14:16 QUESTION #5 FULL TEXT : Do you snore loudly (louder than talking or can be heard through closed doors)? 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 Specify any problems Hx of Preganancy in last 3 No 11/25/24 14:16 Months Nurse Filling Out Transfusion DSCHRIBER 11/25/24 14:16 & Questions: Date: 11/25/24 11/25/24 14:16 Time: 14:17 11/25/24 14:16 Patient unable to answer at this time (ie. confused, unrespo /Reproduction History /Reproductive History - interventional radiologist: /Reproductive Hx- interventional radiologist Hx Now No 11/25/24 14:16 Gestational Age (in weeks): EDC: Hx Hx Para Hx Section SAB No 11/25/24 14:16 [facility] Medical History (Updated 11/25/24 @ 14:22 by Savanah Hargrove) Insulin dependent diabetes mellitus Open wound CPAP (continuous positive airway pressure) dependence Low iron High cholesterol Shortness of breath on exertion Hypertension URI (upper respiratory infection) Contact with or exposure to other viral diseases Multifocal pneumonia History of kidney stones Migraine headache Hx of colonic polyp Wears dentures Wears glasses Depression Anxiety DVT (deep venous thrombosis) Injury of head and neck Gastric reflux Smoker Chronic cough Leg cramps History of echocardiogram Contraceptive management Menorrhagia with irregular cycle 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 Leukocytosis Home Medications ?Medication ?Instructions ?Recorded ?Last Taken ?Type metformin 500 mg tablet 1,000 mg PO BID diabetes 02/28/14 11/26/19 16:00 History clopidogrel 75 mg tablet 75 mg PO DAILY 12/14/19 11/25/24 History warfarin 5 mg tablet 9 mg PO DAILY DVT 12/14/19 11/24/24 History biotin 5,000 mcg disintegrating 10,000 mcg PO DAILY 04/03/20 Unknown History tablet doxepin 10 mg capsule 10 mg PO PRN PRN Sleep 12/14/20 Unknown History bupropion HCl 150 mg tablet,12 hr 150 mg PO BID 07/05/22 Unknown History sustained-release valsartan 160 mg tablet 160 mg PO DAILY 07/05/22 07/09/22 History pioglitazone 30 mg tablet 30 mg PO DAILY Diabetes 05/15/23 Unknown History ondansetron 4 mg disintegrating 4 mg PO Q8H PRN PRN Nausea #10 tabs 06/26/23 Unknown Rx tablet insulin glargine U-300 conc 300 40 unit subcut QHS 04/21/24 Unknown History unit/mL (3 mL) subcutaneous pen (Toujeo Max U-300 SoloStar) nicotine 14 mg/24 hr daily 1 patch transdermal Q24H PRN 04/21/24 Unknown History transdermal patch smoking cessation prochlorperazine maleate 10 mg 10 mg PO TID PRN nausea 04/21/24 Unknown History capsule,extended release rosuvastatin 40 mg tablet 40 mg PO QHS 04/21/24 Unknown History venlafaxine 150 mg 150 mg PO DAILY 04/21/24 Unknown History capsule,extended release 24 hr polysaccharide iron complex 150 mg 150 mg PO BID #180 caps 06/23/24 Unknown Rx iron capsule (Ferrex) sennosides 8.6 mg-docusate sodium 1 tab PO BID PRN PRN STOOL SOFTENER 07/21/24 Unknown History 50 mg tablet (Senexon-S) sucralfate 1 gram tablet 1 g PO BID 07/21/24 Unknown History lubiprostone 24 mcg capsule 24 mcg PO BID #60 caps 10/14/24 Unknown Rx (Amitiza) vonoprazan 20 mg tablet (Voquezna) 20 mg PO QDAY #30 tabs 10/14/24 Unknown Rx Allergy/AdvReac Type Severity Reaction Status Date / Time latex Allergy Mild rash Verified 11/25/24 14:11 Penicillins (PCN) Allergy Hives Verified 11/25/24 14:11 Family History Brother Diabetes Father Diabetes Mother Diabetes Uncle Diabetes Skin cancer Colon cancer Uncle Diabetes Aunt Breast cancer Surgical History (Updated 11/25/24 @ 14:22 by Savanah Hargrove) Hx laparoscopic cholecystectomy Status post endometrial ablation History of esophagogastroduodenoscopy (EGD) Hx of partial nephrectomy History of embolectomy H/O tubal ligation Hx of cholecystectomy H/O lithotripsy Social History household members: family current occupational status: employed current occupation: [employer] history of recent travel: No sexually active: No Smoking Status: Current every day smoker tobacco type: cigarettes alcohol intake: current alcohol intake frequency: holidays/special occasions only substance use type: does not use what type of physical activity do you participate in: other seatbelt use: always do you feel safe at home: Yes additional social history: single Audit: Pertinent Findings Pertinent Findings EKG Perinent findings: July 25, 2023. Normal sinus rhythm. Echo (EF%) pertinent findings: November 27, 2019. EF of 60%. No aortic stenosis noted. Recommendation Anesthesia Recommendation Anesthesia recommendation: OPTIMIZED for anesthesia
[2024-11-29] VITALS (8 sets, daily range): BP systolic 85–138; BP diastolic 62–73; PULSE 50–69; RESP 16–18; TEMP 36.2–37; O2SAT 93–99; BMI 28.6
--- OUTSIDE RECORDS SUMMARY | 2024-11-29 05:45 | XMS RPT_ITS | CCD ---
Author Organization [facility] Care Team Providers Care Butt Presser Name Role Phone SUHA RUSSELL CNP Admitting [...] Care Unavailable NO, DOCTOR ON Consulting Unavailable CUNNINGHAMVINOD Holguin C Admitting Unavailable CUNNINGHAMVINOD C Attending Unavailable CUNNINGHAM VINOD C Primary Care Unavailable NO, DOCTOR ON Consulting Unavailable NO, DOCTOR ON Referring Unavailable ESTHER NAVA MD Admitting Unavailab ESTHER Man MD Attending Unavailab le SHUA RUSSELL CNP Referring Unavailable ESTHER NAVA MD Primary Care Unavailab le SUHA RUSSELL CNP Consulting Unavailable PROVIDER, UNKNOWN Consulting Unavailable PROVIDER, UNKNOWN Consulting Unavailable ERMIAS FUNK Referring Unavailable Shashank Tai Chi Primary Care Provider [phone] Todd Tabor MD Unavailable [phone] Dr. Shashank Tai Chi Primary Care Provider [phone] Dr. Shashank Tai Chi Referring Provider Zaire, Dr. Shashank Parekh Other Provider Dr. Sam Boston Attending Provider Zaire, Dr. Shashank Parekh Primary Care Provider Zaire, Dr. Shashank Parekh Referring Provider Zaire, Dr. Shashank Parekh Other Provider Darvin, Dr. Vargas Attending Provider [place] REGENERATION OPERATOR, REGENERATION OPERATOR-C Penelope Attending Provider Zaire, Dr. Shashank Parekh Primary Care Provider Zaire, Dr. Shashank Parekh Referring Provider Dr. Lolis Monge Attending Provider [facility], Dr. Carvalho Attending Provider Anil Clifton, Dr. Danielle Referring Provider [phone] Anil Clifton, Dr. Danielle Other Provider Zaire, Dr. Shashank Parekh Primary Care Provider Zaire, Dr. Shashank Parekh Referring Provider Rosanna REGENERATION OPERATOR, DRAKE-Juan Negrete Attending Provider Dr. Lolis Monge Attending Provider [facility], Dr. Carvalho Attending Provider Dr. Lolis Monge Referring Provider [phone] Dr. Lolis Monge Other Provider Zaire, Dr. Shashank Parekh Primary Care Provider Zaire, Dr. Shashank Parekh Referring Provider Zaire, Dr. Shashank Parekh Primary Care Provider Zaire, Dr. Shashank Parekh Referring Provider Joann, Dr. Carvalho Attending Provider [place]aire, Shashank Parekh Primary Care Provider Sharona CRUZ, Todd Molina Zaire, Dr. Shashank Parekh Primary Care Provider Zaire, Dr. Shashank Parekh Referring Provider [facility], Dr. Carvalho Attending Provider Zaire, Dr. Shashank Parekh Primary Care Provider Zaire, Dr. Shashank Parekh Referring Provider Pra, Dr. Carvalho Attending Provider CorniciDr. Brooks Emergency Provider MD Stefan [facility]oyd [facility] Dr. Leola Bowman Admit Provider Dr. Leola Bowman Other Provider Koram, Dr. Shavon Torres Attending Provider Koram, Dr. Shavon Torres Other Provider Zaire, Dr. Shashank Parekh Primary Care Provider Zaire, Dr. Shashank Parekh Referring Provider KAYLEEN Hdez Attending Provider Zaire, Dr. Shashank Parekh Primary Care Provider MD Stefan Loyd Attending Provider Zaire, Dr. Shashank Parekh Primary Care Provider Zaire, Dr. Shashank Parekh Referring Provider Zaire, Dr. Shashank Parekh Primary Care Provider Dr. Estefany Soriano Emergency Provider Dr. Leola Bowman Admit Provider Dr. Leola Bowman Other Provider Koram, Dr. Shavon Torres Attending Provider Koram, Dr. Shavon Torres Other Provider Zaire, Dr. Shashank Parekh Referring Provider KAYLEEN Hdez Attending Provider Zaire, Dr. Shashank Parekh Primary Care Provider Dr. Estefany Soriano Emergency Provider Dr. Leola Bowman Admit Provider Dr. Leola Bowman Other Provider Teetee, Dr. Shavon Torres Attending Provider Kortesfaye, Dr. Shavon Torres Other Provider Zaire, Dr. Shashank Parekh Referring Provider Trang BEYER, PA Edgar Berman Attending Provider PHYSICIAN, NONE Primary Care Physician Unavailab patricia HUTTON MD, DR LAWTON Attending Unavailabl e PHYSICIAN, NONE Primary Care Unavailable Zaire CRUZ, Dr. Shashank Parekh Primary Care Provider [phone] Zaire CRUZ, Dr. Shashank Parekh Referring Provider Matthew REGENERATION OPERATOR-C, Lolis Attending Provider Zaire CRUZ, Dr. Shashank Parekh Attending Provider Lex REGENERATION OPERATOR-CCarlo Attending Provider Joann CRUZ, Dr. Carvalho Attending Provider Fang REGENERATION OPERATOR-CRajni Attending Provider Kendy BLACKMAN, Dr. Serrano Attending Provider Dr. Zach Larry DO Other Provider Zaire CRUZ, Dr. Shashank Parekh Primary Care Provider [phone] Zaire CRUZ, Dr. Shashank Parekh Referring Provider Zaire CRUZ, Dr. Shashank Parekh Attending Provider Matthew REGENERATION OPERATOR-CLolis Attending Provider Matthew REGENERATION OPERATOR-C, Lolis Referring Provider Shashank Tai Chi Primary Care Provider Sharona CRUZ, Todd Alvarez Unavailable Zaire CRUZ, Dr. Shashank Parekh Primary Care Provider [phone] Zaire CRUZ, Dr. Shashank Parekh Referring Provider Zaier, Shashank Chi Attending Unavailable Zaire, Shashank Chi Referring Unavailable Zaire, Shashank Chi Primary Care Unavailable Zaire, Shashank Chi Primary Care Unavailable Zaire, Shashank Chi Referring Unavailable Friend, Zach Attending Unavailable Zaire, Shashank Chi Attending Unavailable Zaire, Shashank Chi Primary Care Unavailable Zaire, Shashank Chi Attending Unavailable Zaire, Shashank Chi Primary Care Unavailable Zaire, Shashank Chi Attending Unavailable Zaire, Shashank Chi Primary Care Unavailable Zaire, Shashank Chi Primary Care Unavailable Zaire, Shashank Chi Referring Unavailable Friend, Zach Attending Unavailable Zaire, Shashank Chi Attending Unavailable Zaire, Shashank Chi Primary Care Unavailable Zaire, Shashank Chi Referring Unavailable Zaire, Shashank Chi Primary Care Unavailable MatthewLolis Attending Unavailable Matthew, Lolis Referring Unavailable Friend, Zach Consulting Unavailable Zaire, Shashank Chi Primary Care Unavailable Zaire, Shashank Chi Referring Unavailable Friend, Zach Attending Unavailable Zaire, Shashank Chi Primary Care Unavailable Zaire, Shashank Chi Referring Unavailable Deven David Attending Unavailable Zaire, Shashank Chi Primary Care Unavailable Zaire, Shashank Chi Attending Unavailable Zaire, Shashank Chi Primary Care Unavailable Vincent Paniagua Attending Unavailable Zaire, Shashank Chi Consulting Unavailable Zaire, Shashank Chi Primary Care Unavailable Zaire, Shashank Chi Referring Unavailable Tamanna Andrew Attending Unavailable Zaire, Shashank Chi Referring Unavailable Zaire, Shashank Chi Primary Care Unavailable MatthewLolis domínguez Attending Unavailable Roof Carlo JUAN Attending Unavailable Zaire, Shashank Chi Primary Care Unavailable Zaire, Shashank Chi Referring Unavailable Zaire, Shashank Chi Primary Care Unavailable Zaire, Shashank Chi Referring Unavailable Fang REGENERATION OPERATOR, Rajni Attending Unavailable Zaire, Shashank Chi Referring Unavailable Zaire, Shashank Chi Primary Care Unavailable MatthewLolis Attending Unavailable Zaire, Shashank Chi Referring Unavailable MatthewClaireLolis Attending Unavailable Zaire, Shashank Chi Primary Care Unavailable Zaire, Shashank Chi Primary Care Unavailable Zaire, Shashank Chi Referring Unavailable MatthewClaireLolis Attending Unavailable Kyree Ariza Attending Unavailable Zaire, Shashank Chi Primary Care Unavailable Zaire, Shashank Chi Primary Care Unavailable MatthewLolis Referring Unavailable MatthewClaireLolis Attending Unavailable Allergies Allergy Classification Reported Allergen(s) Allergy Type Date of Onset Reaction(s) Facility (1 source) Penicillins Drug allergy (disorder) [facility] (3 sources) Penicillins Drug Allergy 4 Rash, Unknown [facility] (20 sources) Latex Allergy to substance 2 rash [facility] (4 sources) Penicillins Drug Allergy 4 Rash, Unknown [facility] (20 sources) Penicillins Allergy to substance 2 Hives [facility] (4 sources) Penicillins Drug Allergy 4 Rash, Unknown [facility] (1 source) Latex Drug allergy (disorder) 5 [facility] (1 source) Penicillins Drug allergy (disorder) 5 [facility] Rep[facility] Medications Current Medications Medication Drug Class(es) Dates Sig (Normalized) Sig (Original) acetaminophen 325 mg oral tablet (5 sources) Start: 12-08-2019 take 2 tablets by mouth every six hours as needed acetaminophen (TYLENOL) 325 mg tablet Take 2 tablets by mouth every 6 hours as needed. 12/08/2019 Active Comment on above: Take 2 tablets by mo [facility] every 6 hours as needed. aspirin 81 mg delayed release oral tablet (20 sources) Platelet Aggregation Inhibitor, Nonsteroidal Anti-inflammatory Drug Start: 04-03-2020 take 81 mg by mouth once daily Aspirin Active 81 MG PO DAILY April 03, 2020 1:00am Start: 12-08-2019 take 4 tablets by mo [facility] once daily aspirin 81 mg chewable tablet Take 4 tablets by mouth once daily for 3 days. 3 tablet 12/08/2019 Active Comment on above: Take 4 tablets by mo [facility] once daily for 3 days. atorvastatin 80 mg oral tablet (20 sources) HMG-CoA Reductase Inhibitor Start: 0 take 1 tablet by mouth once daily at bedtime atorvastatin (LIPITOR) 80 mg tablet Take 1 tablet by mouth daily at bedtime. 30 tablet 12/08/2019 Active Start: 11-26-2019 End: 05-10-2024 take 2 tablets by mouth once daily Atorvastatin 40 MG tablet Discontinued 80 mg PO DAILY November 26, 2019 12:00am May 10, 2024 1:04pm Start: 11-26-2019 take 80 mg by mouth once daily Atorvastatin Active 80 MG PO DAILY November 26, 2019 12:00am Comment on above: [facility] biotin 5 mg disintegrating oral tablet (20 sources) Start: 04-03-2020 take 2 tablets by mouth once daily Biotin 5,000 MCG tablet,disintegra ting Active 36567 ug PO DAILY April 03, 2020 1:00am Start: 04-03-2020 take 00179 ug by debra th once daily Biotin Active 17049 MCG PO DAILY April 03, 2020 1:00am Start: 04-03-2020 take 5000 ug by mouth once barak ly Biotin Active 5000 MCG PO DAILY April 03, 2020 12:00am 12 hr buPROPion hydrochloride 150 mg extended release oral tablet (20 sources) Aminoketone Start: 11-24-2021 take 1 tablet by mouth twice daily Bupropion Hcl 150 mg tablet sustained-release 12 hr Active 150 mg PO TWICE A DAY July 05, 2022 1:00am Comment on above: TAKE 1 TABLET ORALLY TWICE PER DAY FOR 90 DAYS cefaclor 500 mg oral capsule (8 sources) Cephalosporin Antibacterial Start: 03-10-2021 take 500 mg by mouth three times daily Cefaclor Active 500 MG PO THREE TIMES A DAY 20 12March 09, 2021 11:00pm clopidogrel 75 mg oral tablet (20 sources) P2Y12 Platelet Inhibitor Start: 12-08-2019 take 1 tablet by mouth once daily Clopidogrel 75 MG tablet Active 75 mg PO DAILY December 14, 2019 12:00am Start: 12-08-2019 take 1 tablet by debra once daily clopidogrel (PLAVIX) 75 mg tablet 1 tablet by ORAL/FEEDING TUBE route once daily. 30 tablet 2 12/08/2019 Active Comment on above: 1 tablet by ORAL/FEE DING TUBE route once daily. docusate sodium 50 mg / sennosides, mcfp 8.6 mg oral tablet (20 sources) Start: 07-21-2024 Sennosides-Docusate Sodium (Senexon-S) 8.6-50 mg tablet Active 1 {tbl} PO TWICE DAILY NEEDED as needed for STOOL SOFTENER July 21, 2024 1:00am Start: 12-14-2020 End: 11-25-2022 Start: 12-08-2019 End: 05-10-2024 Sennosides-Docusate Sodium ( Senexon-S) 8.6-50 mg tablet Discontinued 1 {tbl} PO TWICE A DAY December 14, 2020 12:00am July 23, 2022 1:01pm Comment on above: Take 1 tablet by debra th twice daily as needed. doxepin hydrochloride 10 mg oral capsule (20 sources) Tricyclic Antidepressant Start: 12-14-2020 Doxepin 10 mg capsule Active 10 mg PO NEEDED as needed for Sleep December 14, 2020 12:00am Start: 12-14-2020 ferrous fumarate 456 mg oral tablet (5 sources) Ferrous Fumarate 456 mg (150 mg iron) tab Take by mouth once daily. Active Comment on above: Take by mouth once d aily. 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 Active Comment on above: Take 200 mg by mouth as needed. 3 ml insulin glargine 100 unt/ml pen injector (5 sources) Insulin Analog Start: 12-08-2019 insulin glargine (LANTUS SOLOSTAR U-100 INSULIN) 100 unit/mL (3 mL) Inject 12 Units subcutaneously daily at bedtime. 5 Pen 1 12/08/2019 Active Comment on above: Inject 12 Units subc utaneously daily at bedtime. Insulin Glargine U-300 Conc (Toujeo Max U-300 Solostar) 300 unit/mL (3 mL) insulin pen (4 sources) Start: 04-21-2024 Insulin Glargine U-300 Conc (Toujeo Max U-300 Solostar) 300 unit/mL (3 mL) insulin pen Active 40 U SC AT BEDTIME April 21, 2024 1:00am 3 ml insulin lispro 100 unt/ml pen injector (10 sources) Insulin Analog Start: 12-08-2019 insulin lispro (HUMALOG) 100 unit/mL injection Inject 0-10 Units subcutaneously daily at bedtime. ADMINISTER CORRECTIONAL INSULIN REGARDLESS OF MEAL OR NUTRITION INTAKE Scale 2 If Blood Glucose (mg/dL) is: Less than 110 Give 0 units 111-150 Give 0 units 151-200 Give 2 units 201-250 Give 4 units 251-300 Give 6 units 301-350 Give 8 units 351-400 Give 10 units Greater than 400 Give 10 units and Notify Provider Notify provider if 2 consecutive blood glucose values in the previous 24 hours are greater than 250 mg/mL and there have been no changes to the insulin regimen in the previous 24 hours. 0 12/08/2019 Active Start: 12-08-2019 inject 5 [IU] by sub cutaneous injection three times daily before mealtime insulin lispro (HUMALOG KWIKPEN INSULIN) 100 unit/mL Inject 5 Units subcutaneously three times daily before meals. 5 Pen 1 12/08/2019 Active Comment on above: Inject 5 Units subcu taneously three times daily before meals. Inject 0-10 Units franklin bcutaneously daily at bedtime. ADMINISTER CORRECTIONAL INSULIN REGARDLESS OF MEAL OR NUTRITION INTAKE Scale 2 If Blood Glucose (mg/dL) is: Less than 110 Give 0 units 111-150 Give 0 units 151-200 Give 2 units 201-250 Give 4 units 251-300 Give 6 units 301-350 Give 8 units 351-400 Give 10 units Greater than 400 Give 10 units and Notify Provider Notify provider if 2 consecutive blood glucose values in the previous 24 hours are greater than 250 mg/mL and there have been no changes to the insulin regimen in the previous 24 hours. lisinopril 2.5 mg oral tablet (12 sources) Angiotensin Converting Enzyme Inhibitor Start: 12-15-19 21 take 1 tablet by mouth once daily lisinopril 2.5 mg tablet Take 2.5 mg by mouth once daily. 10/19/2021 Active Comment on above: Take 2.5 mg by mouth once daily. lubiprostone 0.024 mg oral capsule (3 sources) Chloride Channel Activator Start: 10-15-19 25 take 1 capsule by mouth twice daily at dinner Lubiprostone (Amitiza) 24 mcg capsule Active 24 ug PO TWICE A DAY October 14, 2024 12:00am take with breakfast and dinner metFORMIN hydrochloride 500 mg oral tablet (20 sources) Biguanide Start: 02-29-20 14 take 2 tablets by mouth twice daily Metformin 500 MG tablet Active 1000 mg PO TWICE A DAY February 28, 2014 12:00am Start: 02-28-2014 take 1000 mg by mouth twice da rishbah Metformin Active 1000 MG PO TWICE A DAY February 28, 2014 12:00am take 250 mg by mouth once daily METFORMIN HCL (METFORMIN ORAL) Indications: 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 Active take 1 tablet by debra th twice daily at mealtime metFORMIN (GLUCOPHAGE) 1,000 mg tablet Take 1,000 mg by mouth twice daily with meals. Active Comment on above: Take 250 mg by mouth once daily. Take 1,000 mg by debra th twice daily with meals. 24 hr nicotine 0.583 mg/hr transdermal system (4 sources) Cholinergic Nicotinic Agonist Start: 04-21-20 apply 1 dose transdermal route every twenty-four hours as needed Nicotine 14 mg/24 hr patch 24 hour Active 1 NMA TD Q24H as needed for smoking cessation April 21, 2024 1:00am NIFEdipine 30 mg osmotic 24 hr extended release oral tablet (5 sources) Dihydropyridine Calcium Channel Imelda Start: 12-08-19 take 1 tablet by mouth once daily NIFEdipine ER (PROCARDIA XL) 30 mg 24 hr tablet Take 1 tablet by mouth once daily. 30 tablet 12/08/2019 Active Comment on above: Take 1 tablet by debra once daily. omeprazole 40 mg delayed release oral capsule (10 sources) Proton Pump Inhibitor take 1 capsule by mouth once daily omeprazole (PRILOSEC) 20 mg capsule Take 20 mg by mouth once daily. 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 Active Comment on above: Take 40 mg by mouth once daily. Take 20 mg by mouth once daily. pioglitazone 30 mg oral tablet (20 sources) Peroxisome Proliferator Receptor alpha Agonist, Peroxisome Proliferator Receptor gamma Agonist, Thiazolidinedione Start: 05-15-20 take 1 tablet by mouth once daily Pioglitazone 30 mg tablet Active 30 mg PO DAILY May 15, 2023 1:00am Start: 09-09-2021 End: 02-08-2023 take 1 tablet by mouth once daily Pioglitazone 30 mg tablet Discontinued 30 mg PO DAILY July 05, 2022 1:00am February 08, 2023 7:30pm Comment on above: TAKE 1 TABLET ORALLY ONCE PER DAY FOR 30 DAYS Prochlorperazine (4 sources) Phenothiazine Start: take 1 capsule by mouth three times daily as needed for nausea Prochlorperazine Maleate 10 mg capsule, extended release Active 10 mg PO THREE TIMES A DAY as needed for nausea April 21, 2024 1:00am rosuvastatin calcium 40 mg oral tablet (4 sources) HMG-CoA Reductase Inhibitor Start: take 1 tablet by mouth once daily Rosuvastatin 40 mg tablet Active 40 mg PO daily April 21, 2024 1:00am sucralfate 1000 mg oral tablet (12 sources) Aluminum Complex Start: take 1 tablet by mouth twice daily Sucralfate 1 gram tablet Active 1 g PO TWICE A DAY July 21, 2024 1:00am Start: 12-18-2020 take 1 g by mouth 1 hour(s) before bedtime Sucralfate Active 1 GM PO before meals and at bedtime 90 December 17, 2020 11:00pm Take 1 hour before meals and at bedtime valsartan 160 mg oral tablet (20 sources) Angiotensin 2 Receptor Imelda Start: 07-05-2022 take 1 tablet by mouth once daily Valsartan 160 mg tablet Active 160 mg PO DAILY July 05, 2022 1:00am 24 hr venlafaxine 150 mg extended release oral capsule (4 sources) Serotonin and Norepinephrine Reuptake Inhibitor Start: 04-21-2024 take 1 capsule by mouth once daily Venlafaxine 150 mg capsule,extended release 24hr Active 150 mg PO DAILY April 21, 2024 1:00am Vonoprazan (Voquezna) 20 mg tablet (7 sources) Start: 10-14-2024 take 1 tablet by mouth once daily Vonoprazan (Voquezna) 20 mg tablet Active 20 mg PO daily October 14, 2024 10:39am Start: 04-21-2024 End: 10-14-2024 take 1 tablet by mouth once daily Vonoprazan (Voquezna) 20 mg tablet Discontinued 20 mg PO daily April 21, 2024 1:00am October 14, 2024 10:41am Start: 04-21-2024 take 1 tablet by debra once daily Vonoprazan (Voquezna) 20 mg tablet Active 20 mg PO daily April 21, 2024 1:00am warfarin sodium 5 mg oral tablet (20 sources) Vitamin K Antagonist Start: 12-14-2019 take 8.5 mg by mouth once daily Warfarin 5 MG tablet Active 8.5 mg PO DAILY December 14, 2019 12:00am Start: 12-14-2019 take 7 mg by mouth once daily Warfarin Active 7 MG PO DAILY December 14, 2019 12:00am Start: 12-14-2019 take 6.5 mg by mouth once isabel y Warfarin Active 6.5 MG PO DAILY December 13, 2019 11:00pm Start: 12-08-2019 warfarin (COUM NOEMI) 5 mg tablet Take 1 tablet by mouth once daily. Please take as directed for INR goal 2-3 30 tablet 12/08/2019 Active Comment on above: Take 1 tablet by debra th once daily. Please take as directed for INR goal 2-3 Completed/Discontinued Medications Medication Drug Class(es) Dates Sig (Normalized) Sig (Original) acetaminophen 325 mg / HYDROcodone bitartrate 5 mg oral tablet (20 sources) Opioid Agonist Start: 04-23-2022 End: 05-07-2022 Hydrocodone-Acetami nophen 5-325 mg tablet Discontinued 1 {tbl} PO EVERY 6 HOURS as needed for pain 10 April 23, 2022 May 07, 2022 3:55pm Start: 04-23-2022 End: 05-07-2022 take 1 tablet by mouth every six hours Hydrocodone-Acetaminophen Discontinued 1 TABLET PO EVERY 6 HOURS 10 April 23, 2022 May 07, 2022 3:55pm Start: 04-23-2022 End: 05-07-2022 acetaminophen 325 mg / oxyCODONE hydrochloride 5 mg oral tablet (20 sources) Opioid Agonist Start: 02-20-2024 End: 05-10-2024 Oxycodone-Acetaminophen (Percocet) 5-325 mg tablet Discontinued 1 {tbl} PO EVERY 6 HOURS as needed for pain 12 February 20, 2024 May 10, 2024 12:12pm Start: 02-08-2023 End: 05-15-2023 Oxycodone-Acetaminophen (Per cocet) 5-325 mg tablet Discontinued 1 {tbl} PO Q8H as needed for pain 03 04February 08, 2023 May 15, 2023 3:17am Start: 02-08-2023 End: 05-15-2023 Start: 06-12-2022 take 1 tablet by debra th every six hours Oxycodone-Acetaminophen (Percocet) 5-325 mg tablet Active 1 TABLET PO EVERY 6 HOURS 03 04July 09, 2022 ciprofloxacin 500 mg oral tablet (14 sources) Quinolone Antimicrobial Start: 06-10-2023 End: 02-20-2024 take 1 tablet by mouth twice daily Ciprofloxacin Hcl 500 mg tablet Discontinued 500 mg PO TWICE A DAY June 10, 2023 1:00am February 20, 2024 4:12am clindamycin 300 mg oral capsule (20 sources) Lincosamide Antibacterial Start: 02-08-2023 End: 03-04-2023 take 1 capsule by mouth every eight hours Clindamycin Hcl 300 mg capsule Discontinued 300 mg PO Q8H 30 February 08, 2023 12:00am March 04, 2023 1:53pm dapagliflozin 10 mg oral tablet (19 sources) Sodium-Glucose Cotransporter 2 Inhibitor Start: 05-15-2023 End: 07-21-2024 take 1 tablet by mouth once daily Dapagliflozin Propanediol (Farxiga) 10 mg tablet Discontinued 10 mg PO DAILY May 15, 2023 1:00am July 21, 2024 2:37pm doxycycline hyclate 100 mg oral capsule (20 sources) Tetracycline-class Drug Start: 06-06-2024 End: 06-13-2024 take 1 capsule by mouth twice daily Doxycycline Hyclate 100 mg capsule Discontinued 100 mg PO TWICE A DAY 14 June 06, 2024 1:00am June 12, 2024 1:00am June 13, 2024 1:11am Start: 07-30-2022 End: 02-08-2023 take 1 capsule by mouth twice daily Doxycycline Monohydrate 100 mg capsule Discontinued 100 mg PO TWICE A DAY July 30, 2022 1:00am February 08, 2023 7:29pm escitalopram 20 mg oral tablet (20 sources) Serotonin Reuptake Inhibitor Start: 12-14-2020 End: 06-23-2024 take 1 tablet by mouth once daily Escitalopram Oxalate (Lexapro) 20 mg tablet Discontinued 20 mg PO DAILY December 14, 2020 12:00am June 23, 2024 12:13pm Comment on above: Take 20 mg by mouth once daily. glimepiride 4 mg oral tablet (4 sources) Sulfonylurea Start: 04-21-2024 End: 06-23-2024 take 1 tablet by mouth twice daily at mealtime Glimepiride 4 mg tablet Discontinued 4 mg PO TWICE A DAY April 21, 2024 1:00am June 23, 2024 12:13pm administer with food levoFLOXacin 750 mg oral tablet (17 sources) Quinolone Antimicrobial Start: 05-17-2023 End: 05-10-2024 take 1 tablet by mouth once daily Levofloxacin 750 mg tablet Discontinued 750 mg PO DAILY May 17, 2023 1:00am May 10, 2024 1:03pm linaclotide 0.145 mg oral capsule (4 sources) Guanylate Cyclase-C Agonist Start: 05-10-2024 End: 07-21-2024 take 1 capsule by mouth once daily in the morning Linaclotide (Linzess) 145 mcg capsule Discontinued 145 ug PO EVERY MORNING May 10, 2024 1:00am July 21, 2024 2:36pm medroxyPROGESTERone acetate 10 mg oral tablet (20 sources) Progestin Start: 07-30-2022 End: 02-08-2023 take 1 tablet by mouth three times daily, then take 1 tablet by mouth twice daily, then take 1 tablet by mouth once daily Medroxyprogesterone 10 mg tablet Discontinued 10 mg PO DAILY July 30, 2022 1:00am February 08, 2023 7:30pm 1 tablet 3 times a day for 2 days. Then 1 tablet twice a day for 2 days. Then 1 tablet daily. Start: 04-23-2022 End: 05-07-2022 take 1 tablet by mouth twice daily, then take 1 tablet by mouth once daily Medroxyprogesterone 5 mg tablet Discontinued 5 mg PO DAILY April 23, 2022 1:00am May 07, 2022 4:16pm 5 mg twice a day for 3 days. Then 5 mg once daily for 2 weeks. metroNIDAZOLE 500 mg oral tablet (14 sources) Nitroimidazole Antimicrobial Start: 06-10-2023 End: 05-10-2024 take 1 tablet by mouth every six hours Metronidazole 500 mg tablet Discontinued 500 mg PO EVERY 6 HOURS June 10, 2023 1:00am May 10, 2024 1:04pm modafinil 200 mg oral tablet (20 sources) Sympathomimetic-like Agent Start: 03-04-2023 End: 05-15-2023 Modafinil 200 mg tablet Discontinued mg PO March 04, 2023 12:00am May 15, 2023 3:18am Start: 03-04-2023 End: 05-15-2023 Modafinil Discontinued MG PO March 04, 2023 12:00am May 15, 2023 3:18am Start: 03-04-2023 End: 05-15-2023 naproxen 500 mg oral tablet (20 sources) Nonsteroidal Anti-inflammatory Drug Start: 07-05-2022 End: 05-15-2023 Naproxen 500 mg tablet Discontinued 500 mg PO NEEDED as needed for Pain July 23, 2022 1:00pm May 15, 2023 3:17am Start: 07-05-2022 End: 05-15-2023 norethindrone acetate 5 mg oral tablet (20 sources) Start: 05-07-2022 End: 06-14-2022 take 1 tablet by mouth three times daily, then take 1 tablet by mouth twice daily Norethindrone Acetate (Aygestin) 5 mg tablet Discontinued 5 mg PO .COMPLEX 45 May 28, 2022 1:19pm June 14, 2022 12:02pm 5 mg PO tid until bleeding stops X 24 hr then bid to finish Rx Start: 05-07-2022 End: 07-09-2022 take 1 tablet by mouth twice daily Norethindrone Acetate (Aygestin) 5 mg tablet Discontinued 5 mg PO TWICE A DAY 60 June 14, 2022 11:36am July 13, 2022 1:00am July 09, 2022 9:08am ondansetron 4 mg disintegrating oral tablet (20 sources) Serotonin-3 Receptor Antagonist Start: 02-20-2024 End: 05-10-2024 take 1 tablet by mouth three times daily as needed for nausea and vomiting Ondansetron 4 mg tablet,disintegrating Discontinued 4 mg PO THREE TIMES A DAY as needed for nausea and vomiting February 20, 2024 6:38am May 10, 2024 12:12pm Start: 06-26-2023 End: 05-10-2024 take 1 tablet by mouth every eight hours as needed for nausea Ondansetron 4 mg tablet,disintegrating Discontinued 4 mg PO EVERY 8 HOURS NEEDED as needed for Nausea July 25, 2023 1:00am May 10, 2024 12:12pm pantoprazole 40 mg delayed release oral tablet (20 sources) Proton Pump Inhibitor Start: 04-03-2020 End: 05-10-2024 take 1 tablet by mouth once daily Pantoprazole 40 MG tablet Discontinued 40 mg PO DAILY April 03, 2020 1:00am May 10, 2024 1:04pm Comment on above: Take 40 mg by mouth once daily. polysaccharide iron complex 150 mg oral capsule (20 sources) Start: 02-26-2021 End: 06-23-2024 Polysaccharide Iron Complex (Ferrex 150) 150 mg iron capsule Discontinued 150 mg PO TWICE A DAY February 19, 2024 1:22pm June 23, 2024 12:50pm Start: 10-12-2020 End: 11-13-2020 Polysaccharide Iron Complex (Ferrex 150) 150 mg iron capsule Discontinued 150 mg PO DAILY October 12, 2020 12:00am November 13, 2020 10:16am Start: 10-12-2020 End: 11-13-2020 Comment on above: Take 150 mg by mouth twice daily. Semaglutide (4 sources) Start: 04-21-20 End: 05-10-20 Semaglutide (Ozempic) 0.25 mg or 0.5 mg (2 mg/3 mL) pen injector Discontinued 0.25 mg SC EVERY WEEK April 21, 2024 1:00am May 10, 2024 12:13pm for 4 weeks sulfamethoxazole 800 mg / trimethoprim 160 mg oral tablet (8 sources) Dihydrofolate Reductase Inhibitor Antibacterial, Sulfonamide Antimicrobial Start: 02-20-20 End: 05-10-20 Sulfamethoxazole-Tr imethoprim 800-160 mg tablet Discontinued 1 {tbl} PO TWICE A DAY April 01, 2024 12:00am April 21, 2024 8:05am traMADol hydrochloride 50 mg oral tablet (20 sources) Opioid Agonist Start: 07-25-19 End: 05-10-20 take 1 tablet by mouth every eight hours as needed for pain Tramadol 50 mg tablet Discontinued 50 mg PO Q8H as needed for pain July 25, 2023 1:00am May 10, 2024 12:13pm Start: 03-10-2021 End: 05-07-2022 take 1 tablet by mouth every four hours as needed for pain Tramadol 50 MG tablet Discontinued 50 mg PO EVERY 4 HOURS NEEDED as needed for Pain 03 03March 10, 2021 12:00am May 07, 2022 3:55pm Start: 03-10-2021 End: 05-07-2022 Problems Active Problems Problem Classification Problem Date Documented Da te Episodic/Chronic Acute and unspecified renal failure (20 sources) Acute renal failure syndrome; Translations: [Acute kidney failure, unspecified] 05-15-2023 Episodic Acute cerebrovascular disease (20 sources) Cerebrovascular accident; Translations: [Cerebral infarction, unspecified] 05-07-2022 Chronic Anxiety disorders (5 sources) Anxiety; Translations: [Anxiety disorder, unspecified] 12-08-2019 Chronic Aortic and peripheral arterial embolism or thrombosis (20 sources) Thrombosis of aorta; Translations: [Embolism and thrombosis of unspecified parts of aorta] Onset: Chronic Aortic; peripheral; and visceral artery aneurysms (20 sources) Aortic aneurysm; Translations: [Aortic aneurysm of unspecified site, without rupture] 05-07-2022 Chronic Coagulation and hemorrhagic disorders (20 sources) Blood coagulation disorder; Translations: [Hemorrhagic disorder due to extrinsic circulating anticoagulants] 05-01-2022 Chronic Contraceptive and procreative management (20 sources) Patient encounter status; Translations: [Encounter for contraceptive management, unspecified] 11-22-2020 Episodic Comment on above: No PA needed for IUD ref# Deficiency and other anemia (20 sources) Iron deficiency anemia; Translations: [Iron deficiency anemia, unspecified] 05-07-2022 Episodic Diabetes mellitus with complications (10 sources) Type 2 diabetes mellitus; Translations: [DM (diabetes mellitus) type II uncontrolled, periph vascular disorder] Onset: 4 05-29-2021 Chronic Diabetes mellitus with complications (2 sources) Type 2 diabetes mellitus with diabetic neuropathy, unspecified; Translations: [Type 2 diabetes mellitus with diabetic neuropathy, unspecified] Onset: 9 Diabetes mellitus without complication (20 sources) Diabetes mellitus; Translations: [Type 2 diabetes mellitus without complications] 12-07-2019 Chronic Esophageal disorders (20 sources) Gastroesophageal reflux disease; Translations: [Gastro-esophageal reflux disease without esophagitis] 05-07-2022 Chronic Essential hypertension (6 sources) Essential hypertension; Translations: [Essential (primary) hypertension] Onset: 5 12-08-2019 Chronic Fluid and electrolyte disorders (20 sources) Acute hyponatremia; Translations: [Hypo-osmolality and hyponatremia] 05-15-2023 Episodic Headache; including migraine (6 sources) Headache; Translations: [Headache] Episodic Immunizations and screening for infectious disease (20 sources) Contact with or exposure to other viral diseases 06-10-2023 Episodic Menopausal disorders (20 sources) Postmenopausal bleeding; Translations: [Postmenopausal bleeding] Chronic Comment on above: EMB pending. Rx ayge stin Menstrual disorders (20 sources) Menometrorrhagia; Translations: [Excessive and frequent menstruation with irregular cycle] 11-22-2020 Chronic Comment on above: No PA needed for IUD insertion. Ref#[id number] Mood disorders (5 sources) Depressive disorder; Translations: [Depression] 12-08-2019 Chronic Noninfectious gastroenteritis (14 sources) Colitis; Translations: [Noninfective gastroenteritis and colitis, unspecified] 06-10-2023 Episodic Nutritional deficiencies (5 sources) Moderate protein energy malnutrition; Translations: [Moderate protein-calorie malnutrition] Onset: 0 12-07-2019 Chronic Other aftercare (20 sources) Drug therapy finding; Translations: [retirement (current) use of anticoagulants] 05-08-2022 Episodic Comment on above: warfarin since December 2019 Other aftercare (20 sources) Long-term current use of anticoagulant; Translations: [retirement (current) use of anticoagulants] 06-20-2022 Episodic Other aftercare (5 sources) exterminator termite (current) use of anticoagulants; Translations: [Long-term (current) use of anticoagulants] 07-23-2022 Episodic Other and unspecified benign neoplasm (20 sources) History of polyp of colon; Translations: [Personal history of colonic polyps] 02-06-2021 Episodic Other circulatory disease (5 sources) Vasculitis; Translations: [Arteritis, unspecified] Onset: 0 11-29-2019 Chronic Other connective tissue disease (20 sources) Injury of musculoskeletal system; Translations: [Other bursitis, not elsewhere classified, unspecified site] 02-08-2023 Episodic Other connective tissue disease (11 sources) Lateral epicondylitis, left elbow; Translations: [Lateral epicondylitis] 03-04-2023 Episodic Other connective tissue disease (8 sources) Spasm; Translations: [Other muscle spasm] 07-25-2023 Episodic Other female genital disorders (20 sources) Abnormal uterine bleeding; Translations: [Abnormal uterine and vaginal bleeding, unspecified] 05-01-2022 Chronic Other female genital disorders (20 sources) Abnormal vaginal bleeding; Translations: [Abnormal uterine and vaginal bleeding, unspecified] 07-30-2022 Chronic Other female genital disorders (20 sources) History of abnormal cervical Papanicolaou smear ; Translations: [Personal history of other diseases of the female genital tract] 11-20-2020 Episodic Comment on above: 2019 LEEP:HGSIL6/21 neg pap and HPV, repeat 1 year Other female genital disorders (5 sources) Personal history of other diseases of the female genital tract; Translations: [Personal history of other genital system and obstetric disorders] 07-23-2022 Episodic Other gastrointestinal disorders (19 sources) Diarrhea; Translations: [Diarrhea, unspecified] 05-15-2023 Episodic Other gastrointestinal disorders (15 sources) Diarrhea, unspecified; Translations: [Diarrhea] 05-15-2023 Episodic Other gastrointestinal disorders (9 sources) Altered bowel function; Translations: [Change in bowel habit] 05-10-2024 Episodic Other gastrointestinal disorders (9 sources) Constipation; Translations: [Constipation, unspecified] 05-10-2024 Episodic Other liver diseases (6 sources) Steatosis of liver; Translations: [Fatty (change of) liver, not elsewhere classified] 10-14-2024 Chronic Other liver diseases (1 source) Fatty (change of) liver, not elsewhere classified; Translations: [Fatty (change of) liver, not elsewhere classified] Onset: Chronic Other non-traumatic joint disorders (20 sources) Pain in elbow; Translations: [Pain in left elbow] 03-04-2023 Episodic Other nutritional; endocrine; and metabolic disorders (20 sources) H/O: diabetes mellitus; Translations: [Personal history of other endocrine, nutritional and metabolic disease] 05-16-2022 Episodic Other screening for suspected conditions (not mental disorders or infectious disease) (20 sources) Endometrium thickened; Translations: [Abnormal findings on diagnostic imaging of other specified body structures] Chronic Other upper respiratory infections (5 sources) Maxillary sinusitis; Translations: [Chronic maxillary sinusitis] 06-06-2024 Chronic Ovarian cyst (20 sources) Cyst of ovary; Translations: [Unspecified ovarian cyst, right side] Episodic Comment on above: repeat US 2 monthss Peripheral and visceral atherosclerosis (6 sources) Intermittent claudication of bilateral lower limbs co-occurrent and due to atherosclerosis; Translations: [Atherosclerosis of pamunkey arteries of extremities with intermittent claudication, bilateral legs] Onset: 1 09-18-2020 Chronic Pneumonia (except that caused by tuberculosis or sexually transmitted disease) (20 sources) Pneumonia; Translations: [Pneumonia, unspecified organism] 05-15-2023 Episodic Residual codes; unclassified (20 sources) H/O: anticoagulant therapy; Translations: [Personal history of other drug therapy] 04-03-2020 Episodic Residual codes; unclassified (20 sources) History of endometrial ablation; Translations: [Other specified postprocedural states] 07-09-2022 Episodic Spondylosis; intervertebral disc disorders; other back problems (10 sources) Neck pain; Translations: [Cervicalgia] Onset: 4 03-14-2014 Episodic Sprains and strains (20 sources) Sprain of ankle; Translations: [Sprain of unspecified ligament of unspecified ankle, initial encounter] 10-10-2020 Episodic Substance-related disorders (5 sources) Ex-tobacco user; Translations: [Nicotine dependence, unspecified, in remission] Onset: 0 12-08-2019 Chronic Superficial injury; contusion (20 sources) Abrasion, elbow area; Translations: [Abrasion of unspecified elbow, initial encounter] 02-08-2023 Episodic Syncope (20 sources) Syncope; Translations: [Syncope and collapse] 05-16-2022 Episodic Unclassified (3 sources) 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 Deficiency and other anemia (20 sources) Iron deficiency anemia, unspecified; Translations: [Iron deficiency anemia, unspecified] Onset: 06-23-2024 07-01-2022 Episodic Nausea and vomiting (20 sources) Vomiting; Translations: [Vomiting, unspecified] Onset: 05-10-2024 06-26-2023 Episodic Nutritional deficiencies (20 sources) Iron deficiency; Translations: [Iron deficiency] Onset: 06-23-2024 07-08-2022 Episodic Comment on above: Iron deficiency has resolved Other aftercare (6 sources) Anticoagulant effect; Translations: [Encounter for therapeutic drug level monitoring] Onset: 12-06-2019 12-08-2019 Episodic Other bone disease and musculoskeletal deformities (3 sources) Lytic lesion of bone on X-ray; Translations: [Disorder of bone, unspecified] Onset: 03-14-2014 03-14-2014 Episodic Other bone disease and musculoskeletal deformities (2 sources) Other specified disorders of bone, unspecified site; Translations: [Other disorders of bone and cartilage] Onset: 03-14-2014 03-14-2014 Episodic Other gastrointestinal disorders (1 source) Constipation, unspecified; Translations: [Constipation, unspecified] Onset: 08-03-2024 Episodic Other gastrointestinal disorders (1 source) Change in bowel habit; Translations: [Change in bowel habit] Onset: 08-03-2024 Episodic Other nervous system disorders (5 sources) Postoperative pain ; Translations: [Other acute postprocedural pain] Onset: 12-04-2019 12-06-2019 Episodic Other nervous system disorders (1 source) Unspecified disturbances of skin sensation; Translations: [Unspecified disturbances of skin sensation] Onset: 02-09-2024 Episodic Other screening for suspected conditions (not mental disorders or infectious disease) (7 sources) Deviation of international normalized ratio from target range; Translations: [Abnormal coagulation profile] Onset: 02-09-2024 04-09-2024 Episodic Other upper respiratory infections (20 sources) Acute upper respiratory infection; Translations: [Acute upper respiratory infection, unspecified] Onset: 06-06-2024 06-10-2023 Episodic Residual codes; unclassified (5 sources) Tobacco use and exposure - finding; Translations: [Tobacco use] Onset: 03-14-2014 03-14-2014 Episodic Urinary tract infections (20 sources) Acute upper urinary tract infection; Translations: [Urinary tract infection, site not specified] Onset: 08-20-2024 06-20-2022 Episodic Results Test Name Value Interpretation Reference Range Facility MR/Jeanna 11-25-2024 /[facility] Medical Records Department [address] [place] [address] PAT - Anesthesia 11/25/24 1745 MR#: [id number] Acct: [id number] Name: ROGERIO FRIEND Rep #: [id number] : 1970 54 From: Gustavo Martinez MD PCP: Dr. Shashank Tai MD Status:PRE [facility] [place] Race: C Location: [place] Pre-Assessment Diagnosis/Proposed Procedure Planned Operative Procedure(s): CSCOPE Anesthesia History Anesthesia History - space scheduler: Anesthesia History - space scheduler Hx Hospitalization No 11/25/24 14:16 Any Problems With Anesthesia No 11/25/24 14:16 Cholinesterase deficiency No 11/25/24 14:16 You/Your Family Experience No 11/25/24 14:16 fever (hyperthermia) with Relationship Recent Exposure to Contagious No 07/26/24 09:06 Disease Does patient have nerve No 11/25/24 14:16 stimulator Patient instructed to have device shut off --Does patient have Pacemaker or ICD? When Was Last Pacemaker Check QUESTION #4 FULL TEXT: You/Your Family Experience fever (hyperthermia) with Anesthesia Last Oral Intake Last Oral intake: Last Oral Intake NPO since Meds taken in AM with sips of water? Meds patient instructed to take am of surgery PONV PONV - space scheduler: PONV - space scheduler Female Yes 11/25/24 14:16 HX of Motion Sickness No 11/25/24 14:16 HX of N/V After Surgery No 11/25/24 14:16 Non-Smoker No 11/25/24 14:16 Duration of Surgery greater No 11/25/24 14:16 than 60 minutes Number of Risk Factors 1 11/25/24 14:16 PONV Score Low Risk 11/25/24 14:16 Height Weight Height Weight: Anesthesia: Height Weight Height 5 ft 7 in 07/26/24 09:06 Respiratory Assessment Respiratory Assessment - space scheduler: Respiratory Tract Infection Hx - space scheduler Hx Respiratory Tract Infection No 11/25/24 14:16 STOP Sleep Apnea STOP Sleep Apnea - space scheduler: STOP Sleep Apnea - space scheduler Hx Hypertension Yes: CONTROLLED WITH MED 11/25/24 14:16 Hx Sleep Apnea Yes 11/25/24 14:16 CPAP Yes: NONCOMPLIANT 11/25/24 14:16 BIPAP No 11/25/24 14:16 Do you snore loudly (louder than talking or can be heard Do you often feel tired/ fatigued/ sleepy during daytime? Has anyone observed you stop breathing during sleep? STOP Results Positive 11/25/24 14:16 QUESTION #5 FULL TEXT : Do you snore loudly (louder than talking or can be heard through closed doors)? Tobacco Use History Tobacco Use History - space scheduler: Tobacco Use History - space scheduler Tobacco Use Cigarettes 06/06/24 11:04 Smoking Status Current every day smoker 11/25/24 14:16 Hx Tobacco Use Yes 11/25/24 14:16 Years Smoking Packs Smoked per Day Smoking Cessation Date was within the last 15 years Hx Smoking Cessation Date Hx Smoking Cessation No 11/25/24 14:16 Counseling Hematologic Medial History Hematologic Hx - space scheduler: Hematologic Medical Hx - director of mechanical engineering Hx of Blood Transfusion No 11/25/24 14:16 Hx of Transfusion in last 3 No 11/25/24 14:16 Months Date of Last Transfusion (if within last 3 months) Ever experience any problems No 11/25/24 14:16 with transfusion(s)? Specify any problems Hx of Preganancy in last 3 No 11/25/24 14:16 Months Nurse Filling Out Transfusion DSCHRIBER 11/25/24 14:16 Questions: Date: 11/25/24 11/25/24 14:16 Time: 14:17 11/25/24 14:16 Patient unable to answer at this time (ie. confused, unrespo /Reproduction History /Reproductive History - space scheduler: /Reproductive Hx- space scheduler Hx Now No 11/25/24 14:16 Gestational Age (in weeks): EDC: Hx Hx Para Hx Section SAB No 11/25/24 14:16 PFSH Medical History (Updated 11/25/24 @ 14:22 by Savanah Hargrove) Insulin dependent diabetes mellitus Open wound CPAP (continuous positive airway pressure) dependence Low iron High cholesterol Shortness of breath on exertion Hypertension URI (upper respiratory infection) Contact with or exposure to other viral diseases Multifocal pneumonia History of kidney stones Migraine headache Hx of colonic polyp Wears dentures Wears glasses Depression Anxiety DVT (deep venous thrombosis) Injury of head and neck Gastric reflux Smoker Chronic cough Leg cramps History of echocardiogram Contraceptive management Menorrhagia with irregular cycle 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 Normal [facility] ABD Limited w/ Elastographyo n 11-10-2024 ABD Limited w/ Elastography [facility] Imaging Services [address] [place], [place] [address] ABD Limited w/ Elastography MR#: [id number] Acct: [id number] Name: ROGERIO FRIEND Rep #: [id number] : 1970 F 54 From: Bandar dutta MD PCP: Dr. Shashank Tai MD Status: REG CLI Study: ABD Limited w/ Elastography Date of Exam: 10/31 06/26 Exam# [id number] Ordering Dr: Lolis Castro REGENERATION OPERATOR- C PROCEDURE: ABD LIMITED W/ ELASTOGRAPHY REASON FOR EXAM: LIVER STEATOSIS COMPARISON: Prior study dated August 25, 2023. TECHNIQUE: Right upper quadrant abdominal ultrasound. Vidible ElastQ Imaging shear wave elastography for non- invasive assessment of liver tissue stiffness. Emerita EPIQ Elite. FINDINGS: LIVER: Size: Unremarkable Length: 16.8 cm Echotexture: Diffusely echogenic suggesting fatty infiltration Contour: Normal Lesions: None identified Elastography: EQI Med: 7.3 kPa EQI Med Joey: 1.58 m/s IQR/Med: 20 %* GALLBLADDER: Surgically absent. COMMON BILE DUCT: Normal measuring 4 mm. . PANCREAS: Normal Visualized portions of the right kidney are unremarkable. No right upper quadrant ascites. US/ABD Limited w/ Elastography IMPRESSION: MODERATE HEPATIC FIBROSIS FATTY LIVER. Status post cholecystectomy. Reference Values: SRU <1.37 m/s (5.7kPa): No to mild fibrosis 1.37 m/s - 2.2 m/s: Moderate to severe fibrosis >2.2 m/s (15kPa): Significant fibrosis / cirrhosis METAVIR Score F2 or higher: 1.34 m/s (5.7kPa) F3 or higher: 1.55 m/s (7.3kPa) F4: 1.80 m/s (10kPa) * If the IQR/Med is >30%, the variance in the measurements is a large and the accuracy of the measurement may be in question. Reading Location: [place] [address] CC: ANA Castro; Dr. Shashank Tai MD Outreach Professional: Signed [facility] 11-09-2024 CNPN Telephone (PODCCP) ----- ROGERIO FRIEND ([id number]) 1970 F CHT Date Time Provider Department 11/09/24 SHASHANK TAI [facility]I PODCCTommie During your visit today, we recorded the following information about you: Sandra Jaeger 11/09/2024 3:23 PM Signed Reason for call: Pt would like to schedule an appt with Dr. 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 - pantoprazole DR (PROTONIX) 40 mg tablet Take 40 mg by mouth once daily. - pioglitazone (ACTOS) 30 mg tablet TAKE 1 TABLET ORALLY ONCE PER DAY FOR 30 DAYS - iron polysaccharide complex (FERREX-150) 150 mg iron capsule Take 150 mg by mouth twice daily. - buPROPion SR (ZYBAN SR; WELLBUTRIN SR) 150 mg 12 hr tablet TAKE 1 TABLET ORALLY TWICE PER DAY FOR 90 DAYS - Ferrous Fumarate 456 mg (150 mg iron) tab Take by mouth once daily. - atorvastatin (LIPITOR) 80 mg tablet Take 1 tablet by mouth daily at bedtime. - acetaminophen (TYLENOL) 325 mg tablet Take 2 tablets by mouth every 6 hours as needed. - clopidogrel (PLAVIX) 75 mg tablet 1 tablet by ORAL/FEEDING TUBE route once daily. - aspirin 81 mg chewable tablet Take 4 tablets by mouth once daily for 3 days. - NIFEdipine ER (PROCARDIA XL) 30 mg 24 hr tablet Take 1 tablet by mouth once daily. - senna-docusate (SENNA-S) 8.6-50 mg per tablet Take 1 tablet by mouth twice daily as needed. - warfarin (COUMADIN) 5 mg tablet Take 1 tablet by mouth once daily. Please take as directed for INR goal 2-3 - insulin glargine (LANTUS SOLOSTAR U-100 INSULIN) 100 unit/mL (3 mL) Inject 12 Units subcutaneously daily at bedtime. - insulin lispro (HUMALOG KWIKPEN INSULIN) 100 unit/mL Inject 5 Units subcutaneously three times daily before meals. - Insulin Datto, Disposable, (BD ULTRA-FINE PORTIA PEN NEEDLE) 32 gauge x 5/32 1 Each three times daily before meals. - lancets (Tamar EnergyTOUCH DELICA PLUS LANCET) 33 gauge 1 Each three times daily. - blood sugar diagnostic (FnboxUCH VERIO TEST STRIPS) test strip Use as instructed - insulin lispro (HUMALOG) 100 unit/mL injection Inject 0-10 Units subcutaneously daily at bedtime. ADMINISTER CORRECTIONAL INSULIN REGARDLESS OF MEAL OR NUTRITION INTAKE Scale 2 If Blood Glucose (mg/dL) is: Less than 110 Give 0 units 111-150 Give 0 units 151-200 Give 2 units 201-250 Give 4 units 251-300 Give 6 units 301-350 Give 8 units 351-400 Give 10 units Greater than 400 Give 10 units and Notify Provider Notify provider if 2 consecutive blood glucose values in the previous 24 hours are greater than 250 mg/mL and there have been no changes to the insulin regimen in the previous 24 hours. - metFORMIN (GLUCOPHAGE) 1,000 mg tablet Take 1,000 mg by mouth twice daily with meals. - escitalopram oxalate (LEXAPRO) 20 mg tablet Take 20 mg by mouth once daily. - omeprazole (PRILOSEC) 20 mg capsule Take 20 mg by mouth once daily. - METFORMIN HCL (METFORMIN ORAL) Take 250 mg by mouth once daily. - escitalopram oxalate (LEXAPRO) 20 mg tablet Take 20 mg by mouth once daily. - Omeprazole (PRILOSEC) 40 mg capsule Take 40 mg by mouth once daily. - Ibuprofen 200 mg cap Take 200 mg by mouth as needed. 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*12/04/2019 Postoperative pain [G89.18] 12/04/2019 Anticoagulation goal of INR 2 to 3 [Z51.81, Z79*12/06/2019 Lytic bone lesions on xray [M89.8X9] 03/14/2014 Neck pain [M54.2] 03/14/2014 Tobacco use [Z72.0] 03/14/2014 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 A negative result suggests susceptibility to infection. A positive result could be due to vaccination, previously resolved infection or active infection. Testing for HAV IgM should be performed if active HAV infection is suspected. [facility] offers profiles that will automatically reflex positive HAV total antibody results to IgM (e.g., panel #[id number] HAV Antibody w/ Rfx). Performed at: [address] [id number] Home Care Associate: Refugio Rose PhD, Phone: [phone] Performed By: #### L 3890.6202, L3100.0460, L3890.6102, L3100.0300, L3890.6301 #### [facility] Laboratory [address] [place], [place], [address] Hepatitis B Core Ab Totalon 10-15-2024 HEP B CORE,TOT Negative Normal Negative [facility] Comment on above: Performed By: #### L 3890.6202, L3100.0460, L3890.6102, L3100.0300, L3890.6301 #### [facility] Laboratory [address] [place], [place], [address] Gastroenterology Visit Repor ton 10-14-2024 Gastroenterology Visit Report [facility] Gastroenterology [address] [place] [address] OFFICE VISIT Date of Service: 10/14/24 MR#: [id number] Acct: [id number] Name: ROGERIO FRIEND Rep #: [id number] : 1970 Provider: ANA ladd Age/Sex: 54/F Location: [facility] [place] Status: Signed Intake Vital Signs 07/26/24 09:06 10/14/24 10:17 Height 5 ft 7 in 5 ft 7 in Weight: 189 lb 2 oz BMI 29.6 BP 109/76 Respiration 16 Pulse 65 Pulse Oximetry (%) 97 Oxygen Delivery Method room air Intake Visit Reasons: follow up Chief Complaint: iron deficiency anemia Hand Brush Filler Required: No Accompanied by: Self Is patient in pain?: No Allergies latex Allergy (Mild, Verified 10/14/24 10:10) rash Penicillins (PCN) Allergy (Verified 10/14/24 10:10) Hives Medications ???Medication ???Instructions ???Recorded ???Confirmed ???Type metformin 500 mg tablet 1,000 mg PO BID diabetes 02/28/14 10/14/24 History clopidogrel 75 mg tablet 75 mg PO DAILY 12/14/19 10/14/24 H istory warfarin 5 mg tablet 8.5 mg PO DAILY DVT 12/14/1910/14 History biotin 5,000 mcg disintegrating 10,000 mcg PO DAILY 04/03/2010/14 History tablet doxepin 10 mg capsule 10 mg PO PRN PRN Sleep 12/14/20 History bupropion HCl 150 mg tablet,12 hr 150 mg PO BID 07/05/22 10/14/24 H istory sustained-release valsartan 160 mg tablet 160 mg PO DAILY 07/05/22 10/14/24 History pioglitazone 30 mg tablet 30 mg PO DAILY Diabetes 05/15/23 0 10/14/24 History ondansetron 4 mg disintegrating 4 mg PO Q8H PRN PRN Nausea #10 tab s 06/26/23 10/14/24 Rx tablet insulin glargine U-300 conc 300 40 unit subcut QHS 04/21/24 History unit/mL (3 mL) subcutaneous pen (Toujeo Max U-300 SoloStar) nicotine 14 mg/24 hr daily 1 patch transdermal Q24H PRN 04/2110/14/24 History transdermal patch smoking cessation prochlorperazine maleate 10 mg 10 mg PO TID PRN nausea 04/21/24 0 10/14/24 History capsule,extended release rosuvastatin 40 mg tablet 40 mg PO QDAY 04/21/24 10/14/24 Hi story venlafaxine 150 mg 150 mg PO DAILY 04/21/24 10/14/24 History capsule,extended release 24 hr polysaccharide iron complex 150 mg 150 mg PO BID #180 caps 06/23/24 10/14/24 Rx iron capsule (Ferrex) sennosides 8.6 mg-docusate sodium 1 tab PO BID PRN PRN STOOL SOFTEN ER 07/21/24 10/14/24 History 50 mg tablet (Senexon-S) sucralfate 1 gram tablet 1 g PO BID 07/21/24 10/14/24 Histo ry lubiprostone 24 mcg capsule 24 mcg PO BID #60 caps 10/14/24 Rx (Amitiza) vonoprazan 20 mg tablet (Voquezna) 20 mg PO QDAY #30 tabs 05/15/25 05/15/25 Rx Nurse's Note: Has not been able to start Linzess 145mcg PFSH Medical History Low iron High cholesterol Shortness of breath on exertion Hypertension URI (upper respiratory infection) Contact with or exposure to other viral diseases Multifocal pneumonia Sleep apnea History of kidney stones Migraine headache Hx of colonic polyp Wears dentures Wears glasses Bruising Depression Anxiety DVT (deep venous thrombosis) Easy bruising Excessive bleeding Injury of head and neck Gastric reflux Smoker Chronic cough Leg cramps History of echocardiogram Contraceptive management Menorrhagia with irregular cycle 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 Leukocytosis Diabetes mellitus Surgical History Hx laparoscopic cholecystectomy Status post endometrial ablation History of esophagogastroduodenoscop y (EGD) Hx of partial nephrectomy History of embolectomy H/O tubal ligation Hx of cholecystectomy H/O lithotripsy Family History Brother Diabetes Father Diabetes Mother Diabetes Uncle Diabetes Skin cancer Colon cancer Uncle Diabetes Aunt Breast cancer Social History household members: family current occupational status: employed current occupation: [employer] Medical history of recent travel: No sexually active: No Smoking Status: Current every day smoker tobacco type: cigarettes alcohol intake: current alcohol intake frequency: holidays/special occasions only substance use type: does not use what type of physical activity do you participate in: other seatbelt use: always do you feel safe at home: Yes additional social history: single HPI HPI Chief Complaint: iron deficiency anemia Details: ROGERIO FRIEND, is a 54 F who presents to the office today for OV 05/10/2024 53y/o female presents for consultation with complaints of N/V. 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 Normal [facility] Hepatitis B Surface Antibody on 10-14-2024 HEP B Surf Ab REAC Normal [facility] Comment on above: Result Comment: <8.5 mIU/mL: Non-Reactive 8.5<= x <11.5 mIU/mL: Indeterminate >=11.5 mIU/mL: Reactive Non Reactive: Inconsistent with immunity less than <10 mIU/mL Reactive: Consistent with immunity greater than or equal to 10 mIU/mL Performed By: #### L 3890.6202, L3100.0460, L3890.6102, L3100.0300, L3890.6301 #### [facility] Laboratory [address], [place], [id number] Hepatitis C Antibodyon 10-14 Hepatitis C Ab Non-Reactive Normal Nonreactive [facility] Comment on above: Result Comment: Reac tive: Presumptive evidence of antibodies to HCV. Follow CDC recommendations for supplemental testing. Non-Reactive: Antibodies to HCV were not detected; does not exclude the possibility of exposure to HCV Reactive Results are presumptive evidence of antibodies to HCV. Follow CDC recommendations for supplemental testing. Order confirmation testing: HCV Quant by PCR testing - HCVPCR #[id number] Non Reactive: < 0.8 Equivocal: >/= 0.8 to < 1.0 Reactive: >/= 1.0 The [facility] requires that a reactive/equivocal HCV antibody result be sent out for confirmation. HCV Quant by PCR testing. Performed By: #### L 3890.6202, L3100.0460, L3890.6102, L3100.0300, L3890.6301 #### [facility] [address], [place], [id number] L3890.6102on 10-14-2024 HEP B Surf Ag Non-Reactive Normal Nonreactive [facility] Comment on above: Result Comment: Reac tive: Presumptive evidence of HBV. Repeatedly reactive samples must be confirmed using a neutralization test ([employer] HBsAg Confirmatory Test) Non-Reactive: HBsAg not detected; does not exclude the possibility of exposure to HBV Performed By: #### L 3890.6202, L3100.0460, L3890.6102, L3100.0300, L3890.6301 #### [facility] [address] [place], [place], [id number] Laboratory - Microbiology an d Antimicrobial susceptibilityOrdered By: Lolis Castro on 10-14-2024 HBV surface Ag Ql (S) Non-Reactive Nonreactive [facility] Comment on above: Reactive: Presumptiv e evidence of HBV. Repeatedly reactive samples must be confirmed using a neutralization test ([employer]ys HBsAg Confirmatory Test)Non-Reactive: HBsAg not detected; does not exclude the possibility of exposure to HBV Serum hepatitis B virus core antibody detectionOrdered By: Lolis Castro on 10-14-2024 HBV core Ab Ql (S) Negative Negative [facility] Serum hepatitis B virus surf zackary antibody detectionOrdered By: Lolis Castro on 10-14-2024 HBV surface Ab Ql (S) REAC [facility] Comment on above: <8.5 mIU/mL: Non-[place] ctive8.5<= x <11.5 mIU/mL: Indeterminate>=11.5 mIU/mL: Reactive Non Reactive: Inconsistent with immunity less than <10 mIU/mL Reactive: Consistent with immunity greater than or equal to 10 mIU/mL Absolute lymphocyte countOrd ered By: Shashank Tai on 08-11-2024 Lymphocytes Auto (Unsp spec) [#/Vol] 3.62 10*3/uL 0.83-4.51 [facility] Absolute neutrophil countOrd ered By: Shashank Tai on 08-11-2024 Neutrophils (Bld) [#/Vol] 6.3 10*3/uL 2.0-7.7 [facility] Anion gap in Serum or Plasma Ordered By: Shashank Tai on 08-11-2024 Anion gap [Moles/Vol] 11 mmol/L 5-15 [facility] Automated lymphocyte count a s percentage of total leukocytesOrdered By: Shashank Tai on 08-11-2024 Lymphocytes/100 WBC Auto (Unsp spec) 33.0 % 19-41 [facility] BUN/creatinine ratioOrdered By: Shashank Tai on 08-11-2024 Urea nitrogen/Creatinine [Mass ratio] 38.7 mg/mg High 10-20 [facility] Basophil percentageOrdered B y: Shashank Tai on 08-11-2024 Basophils/100 WBC (Bld) 1.0 % 0-1 [facility] Bilirubin Test strip Ql (U)O rdered By: Shashank Tai on 08-11-2024 Bilirubin Ql (U) Negative Negative [facility] Bilirubin, totalOrdered By: Shashank Tai on 08-11-2024 Bilirubin [Mass/Vol] mg/dL 0.00-1.30 [facility] CBC W/Diff, Automatedon - Absolute Lymph 3.62 X10 3/uL Normal 0.83-4.51 [facility] Comment on above: Performed By: #### L 400.0001, L100.0100, L501.9520, L500.4050 #### [facility] [address] [place], [address] Absolute Neut 6.3 X10 3/uL Normal 2.0-7.7 [facility] Comment on above: Performed By: #### L 400.0001, L100.0100, L501.9520, L500.4050 #### [facility] [address] [place], [address] Basophils/100 WBC (Bld) 1.0 % Normal 0-1 [facility] Comment on above: Performed By: #### L 400.0001, L100.0100, L501.9520, L500.4050 #### [facility] [address] [place], [address] Eosinophils/100 WBC (Bld) 2.2 % Normal 0-5 [facility] Comment on above: Performed By: #### L 400.0001, L100.0100, L501.9520, L500.4050 #### [facility] [address] [place], [address] Erythrocyte distribution width (RBC) [Ratio] 13.8 % Normal 11.6-14.6 [facility] Comment on above: Performed By: #### L 400.0001, L100.0100, L501.9520, L500.4050 #### [facility] [address] [place], [address] Hematocrit (Bld) [Volume fraction] 42.2 % Normal 37-47 [facility] Comment on above: Performed By: #### L 400.0001, L100.0100, L501.9520, L500.4050 #### [facility] [address] [place], [address] Hemoglobin (Bld) [Mass/Vol] 14.6 g/dL Normal 12.0-15.0 [facility] Comment on above: Performed By: #### L 400.0001, L100.0100, L501.9520, L500.4050 #### [facility] [address] [place], [address] IG% 0.500 Normal 0.0-0.9 [facility] Comment on above: Result Comment: IG% - Immature Granulocytes (promyelocytes, myelocytes and metamyelocytes) > 1% indicates that a LEFT SHIFT is Present. Performed By: #### L 400.0001, L100.0100, L501.9520, L500.4050 #### [facility] [address] [place], [address] Lymphocytes/100 WBC (Bld) 33.0 % Normal 19-41 [facility] Comment on above: Performed By: #### L 400.0001, L100.0100, L501.9520, L500.4050 #### [facility] [address] [place], [address] MCH (RBC) [Entitic mass] 31.5 pg Normal 27.0-32.0 [facility] Comment on above: Performed By: #### L 400.0001, L100.0100, L501.9520, L500.4050 #### [facility] [address] [place], [address] MCHC (RBC) [Mass/Vol] 34.6 g/dL Normal 32-36 [facility] Comment on above: Performed By: #### L 400.0001, L100.0100, L501.9520, L500.4050 #### [facility] [address] [place], [address] MCV (RBC) [Entitic vol] 91.1 fL Normal 81-99 [facility] Comment on above: Performed By: #### L 400.0001, L100.0100, L501.9520, L500.4050 #### [facility] [address] [place], [address] Monocytes/100 WBC (Bld) 5.6 % Normal 0-10 [facility] Comment on above: Performed By: #### L 400.0001, L100.0100, L501.9520, L500.4050 #### [facility] [address] [place], [address] Neutrophils/100 WBC (Bld) 57.7 % Normal 47-70 [facility] Comment on above: Performed By: #### L 400.0001, L100.0100, L501.9520, L500.4050 #### [facility] [address] [place], [address] Nucleated RBC (Bld) [#/Vol] 0 10*3/uL Normal 0-5 [facility] Comment on above: Performed By: #### L 400.0001, L100.0100, L501.9520, L500.4050 #### [facility] [address] [place], [address] Platelet mean volume (Bld) [Entitic vol] 10.0 fL Normal 6.2-12.0 [facility] Comment on above: Performed By: #### L 400.0001, L100.0100, L501.9520, L500.4050 #### [facility] [address] [place], [address] Platelets (Bld) [#/Vol] 395 10*3/uL Normal 150-450 [facility] Comment on above: Performed By: #### L 400.0001, L100.0100, L501.9520, L500.4050 #### [facility] [address] [place], [address] RBC (Bld) [#/Vol] 4.63 10*6/uL Normal 4.2-5.4 [facility] Comment on above: Performed By: #### L 400.0001, L100.0100, L501.9520, L500.4050 #### [facility] [address] [place], [address] RDW SD 46.4 fl High 35.1-43.9 [facility] Comment on above: Performed By: #### L 400.0001, L100.0100, L501.9520, L500.4050 #### [facility] [address] [place], [address] WBC (Bld) [#/Vol] 11.0 10*3/uL Normal 4.4-11.0 [facility] Comment on above: Performed By: #### L 400.0001, L100.0100, L501.9520, L500.4050 #### [facility] [address] [place], [address] Carbon dioxide, total [Moles /volume] in Central venous bloodOrdered By: Shashank Tai on 08-11-2024 CO2 [Moles/Vol] 23.0 mmol/L 21.0-32.0 [facility] Chloride assayOrdered By: Star Tai on 08-11-2024 Chloride [Moles/Vol] 100 mmol/L 98-108 [facility] Comprehensive Metabolic Prof ilon 08-11-2024 Albumin [Mass/Vol] 4.0 g/dL Normal 3.5-5.0 [facility] Comment on above: Performed By: #### L 500.4050, L100.0100, L501.9520 #### [facility] [address] [place], [address] Albumin/Globulin [Mass ratio] 1.5 {ratio} Normal 0.9-2.4 [facility] Comment on above: Performed By: #### L 500.4050, L100.0100, L501.9520 #### [facility] [address] [place], [address] ALK PHOS 104 U/L Normal 35-104 [facility] Comment on above: Performed By: #### L 500.4050, L100.0100, L501.9520 #### [facility] [address] [place], [address] ALT [Catalytic activity/Vol] 17 U/L Normal <=34 [facility] Comment on above: Performed By: #### L 500.4050, L100.0100, L501.9520 #### [facility] [address] [place], [address] AST [Catalytic activity/Vol] 18 U/L Normal <=31 [facility] Comment on above: Performed By: #### L 500.4050, L100.0100, L501.9520 #### [facility] [address] [place], [address] BUN/CRE 38.7 RATIO High 10-20 [facility] Comment on above: Performed By: #### L 500.4050, L100.0100, L501.9520 #### [facility] [address] [place], [address] Calcium [Mass/Vol] 10.1 mg/dL Normal 7.6-11.0 [facility] Comment on above: Performed By: #### L 500.4050, L100.0100, L501.9520 #### [facility] [address] [place], [address] Chloride [Moles/Vol] 100 mmol/L Normal 98-108 [facility] Comment on above: Performed By: #### L 500.4050, L100.0100, L501.9520 #### [facility] [address] [place], [address] CO2 [Moles/Vol] 23.0 mmol/L Normal 21.0-32.0 [facility] Comment on above: Performed By: #### L 500.4050, L100.0100, L501.9520 #### [facility] [address] [place], [address] Creatinine [Mass/Vol] 0.69 mg/dL Low 0.70-1.20 [facility] Comment on above: Performed By: #### L 500.4050, L100.0100, L501.9520 #### [facility] [address] [place], [address] GAP 11 Normal 5-15 [facility] Comment on above: Performed By: #### L 500.4050, L100.0100, L501.9520 #### [facility] [address] [place], [address] GFR/1.73 sq M.predicted among non-blacks MDRD (S/P/Bld) [Vol rate/Area] 103 mL/min/{1.73_m2} Normal >60 [facility] Comment on above: Result Comment: mL/m in/1.73m2 CKD-EPI Creatinine Equation (2020) Performed By: #### L 500.4050, L100.0100, L501.9520 #### [facility] [address] [place], [address] Globulin (S) [Mass/Vol] 2.7 g/dL Normal 2.2-4.2 [facility] Comment on above: Performed By: #### L 500.4050, L100.0100, L501.9520 #### [facility] [address] [place], [address] Glucose [Mass/Vol] 304 mg/dL High 70-99 [facility] Comment on above: Performed By: #### L 500.4050, L100.0100, L501.9520 #### [facility] [address] [place], [address] Potassium [Moles/Vol] 4.2 mmol/L Normal 3.3-5.1 [facility] Comment on above: Performed By: #### L 500.4050, L100.0100, L501.9520 #### [facility] [address] [place], [address] Sodium [Moles/Vol] 134 mmol/L Normal 133-145 [facility] Comment on above: Performed By: #### L 500.4050, L100.0100, L501.9520 #### [facility] [address] [place], [address] T BILI < 0.15 Normal 0.00-1.30 [facility] Comment on above: Performed By: #### L 500.4050, L100.0100, L501.9520 #### [facility] [address] [place], [address] T PROT 6.7 g/dL Normal 5.9-8.4 [facility] Comment on above: Performed By: #### L 500.4050, L100.0100, L501.9520 #### [facility] [address] [place], [address] Urea nitrogen [Mass/Vol] 27 mg/dL High 4-19 [facility] Comment on above: Performed By: #### L 500.4050, L100.0100, L501.9520 #### [facility] [address] [place], [address] Eosinophil percentageOrdered By: Shashank Tai on 08-11-2024 Eosinophils/100 WBC (Bld) 2.2 % 0-5 [facility] Epithelial cells.squamous LM Ql (Urine sed)Ordered By: Shashank Tai on 08-11-2024 Epithelial cells.squamous LM.HPF (Urine sed) [#/Area] 0 /[HPF] 5-10 [facility] Erythrocyte distribution wid th ratioOrdered By: Shashank Tai on 08-11-2024 Erythrocyte distribution width (RBC) [Ratio] 13.8 % 11.6-14.6 [facility] Erythrocyte distribution wid th standard deviationOrdered By: Shashank Tai on 08-11-2024 Erythrocyte distribution width (RBC) [Entitic vol] 46.4 fL High 35.1-43.9 [facility] Erythrocyte distribution width (RBC) [Ratio] 46.4 fl High 35.1-43.9 [facility] GFR/1.73 sq M.predicted markel g non-blacks MDRD (S/P/Bld) [Vol rate/Area]Ordered By: Shashank Tai 08-11-2024 Estimated GFR (MDRD) Non-Af Amer 103 >60 [facility] Comment on above: mL/min/1.73m2 CKD-EP I Creatinine Equation (2020) Glomerular filtration rate ( GFR) estimation/1.73 sq m using serum, plasma, or whole bOrdered By: Shashank Tai 08-11-2024 GFR/1.73 sq M.predicted among non-blacks MDRD (S/P/Bld) [Vol rate/Area] 103 mL/min/{1.73_m2} >60 [facility] Comment on above: mL/min/1.73m2 CKD-EP I Creatinine Equation (2020) Glucose Ql (U)Ordered By: Star Tai on 08-11-2024 Glucose (U) [Mass/Vol] 1000 mg/dL High Normal [facility] Hematocrit Auto (Bld) [Volum e fraction]Ordered By: Shashank Tai 08-11-2024 Hematocrit (Bld) [Volume fraction] 42.2 % 37-47 [facility] Hemoglobin measurementOrdere d By: Shashank Tai 08-11-2024 Hemoglobin (Bld) [Mass/Vol] 14.6 g/dL 12.0-15.0 [facility] Immature granulocytes/100 WB C Auto (Bld)Ordered By: Shashank Tai on 08-11-2024 Immature granulocytes/100 WBC (Bld) 0.500 % 0.0-0.9 [facility] Comment on above: IG% - Immature Granu locytes (promyelocytes, myelocytes and metamyelocytes) > 1% indicates that a LEFT SHIFT is Present. Ketones Test strip Ql (U)Ord ered By: Shashank Tai on 08-11-2024 Ketones Ql (U) Negative Negative [facility] Laboratory - Chemistry and C hemistry - challengeOrdered By: Shashank Tai on 08-11-2024 AST [Catalytic activity/Vol] 18 U/L <32 [facility] Lymphocytes Auto (Unsp spec) [#/Vol]Ordered By: Shashank Tai on 08-11-2024 Lymphocytes (Bld) [#/Vol] 3.62 10*3/uL 0.83-4.51 [facility] Lymphocytes/100 WBC Auto (Un sp spec)Ordered By: Shashank Tai 08-11-2024 Lymphocytes/100 WBC (Bld) 33.0 % 19-41 [facility] MCV (mean corpuscular volume ) determinationOrdered By: Shashank Tai 08-11-2024 MCV (RBC) [Entitic vol] 91.1 fL 81-99 [facility] Mean corpuscular hemoglobin (MCH) determinationOrdered By: Shashank Tai 08-11-2024 MCH (RBC) [Entitic mass] 31.5 pg 27.0-32.0 [facility] Mean corpuscular hemoglobin concentration (MCHC) determinationOrdered By: Shashank Tai 08-11-2024 MCHC (RBC) [Mass/Vol] 34.6 g/dL 32-36 [facility] Mean platelet volume determi nationOrdered By: Shashank Tai 08-11-2024 Platelet mean volume (Bld) [Entitic vol] 10.0 fL 6.2-12.0 [facility] Microscopic analysis of urin e for red blood cells (RBC)Ordered By: Shashank Tai on 08-11-2024 Microscopic analysis of urine for red blood cells (RBC) 0-5 SEEN /hpf 0-5 [facility] Urine RBC 0-5 SEEN /hpf 0-5 [facility] Monocyte percentageOrdered B y: Shashank Tai on 08-11-2024 Monocytes/100 WBC (Bld) 5.6 % 0-10 [facility] Mucus LM Ql (Urine sed)Order ed By: Shashank Tai on 08-11-2024 Mucus Ql (Urine sed) 0 SEEN /hpf [facility] Neutrophil percentageOrdered By: Shashank Tai on 08-11-2024 Neutrophils/100 WBC (Bld) 57.7 % 47-70 [facility] Nitrite Test strip Ql (U)Ord ered By: Shashank Tai on 08-11-2024 Nitrite Ql (U) Negative Negative [facility] Nucleated red blood cell per centageOrdered By: Shashank Tai on 08-11-2024 Nucleated RBC/100 WBC (Bld) [Ratio] 0 % 0-5 [facility] Platelet countOrdered By: Star Tai on 08-11-2024 Platelets (Bld) [#/Vol] 395 10*3/uL 150-450 [facility] Potassium (Unsp spec) [Mass/ Vol]Ordered By: Shashank Tai on 08-11-2024 Potassium [Moles/Vol] 4.2 mmol/L 3.3-5.1 [facility] Potassium measurement (mass/ volume)Ordered By: Shashank Tai on 08-11-2024 Potassium (Unsp spec) [Mass/Vol] 4.2 mmol/L 3.3-5.1 [facility] Protein Test strip Ql (U)Ord ered By: Shashank Tai on 08-11-2024 Protein Ql (U) 15 mg/dl High Negative [facility] RBC Auto (Bld) [#/Vol]Ordere d By: Shashank Tai on 08-11-2024 RBC (Bld) [#/Vol] 4.63 10*6/uL 4.2-5.4 [facility] Serum creatinine measurement (mass/volume)Ordered By: Shashank Tai on 08-11-2024 Creatinine [Mass/Vol] 0.69 mg/dL Low 0.70-1.20 [facility] Serum globulin measurementOr dered By: Shashank Tai on 08-11-2024 Globulin (S) [Mass/Vol] 2.7 g/dL 2.2-4.2 [facility] Serum glucose measurement (m ass/volume)Ordered By: Shashank Tai on 08-11-2024 Glucose [Mass/Vol] 304 mg/dL High 70-99 [facility] Serum or plasma alanine bueno otransferase (ALT) measurementOrdered By: Shashank Tai on 08-11-2024 ALT [Catalytic activity/Vol] 17 U/L <35 [facility] Serum or plasma albumin uche urement (mass/volume)Ordered By: Shashank Tai on 08-11-2024 Albumin [Mass/Vol] 4.0 g/dL 3.5-5.0 [facility] Serum or plasma albumin/glob ulin mass ratioOrdered By: Shashank Tai 08-11-2024 Albumin/Globulin [Mass ratio] 1.5 {ratio} 0.9-2.4 [facility] Serum or plasma alkaline ana maría sphatase measurementOrdered By: Shashank Tai 08-11-2024 ALP [Catalytic activity/Vol] 104 U/L 35-104 [facility] Serum or plasma calcium uche urement (mass/volume)Ordered By: Shashank Tai 08-11-2024 Calcium [Mass/Vol] 10.1 mg/dL 7.6-11.0 [facility] Serum or plasma urea nitroge n measurement (mass/volume)Ordered By: Shashank Tai 08-11-2024 Urea nitrogen [Mass/Vol] 27 mg/dL High 4-19 [facility] Sodium levelOrdered By: Shashank Tai 08-11-2024 Sodium [Moles/Vol] 134 mmol/L 133-145 [facility] Squamous epithelial cells de tection in urine sediment by light microscopyOrdered By: Shashank Tai 08-11-2024 Epithelial cells.squamous LM Ql (Urine sed) 0-5 SEEN /hpf 5-10 [facility] TSH DL <= 0.005 mIU/L QnOrde red By: Shashank Tai on 08-11-2024 Thyroid Stimulating Hormone (TSH) 1.940 uIU/mL 0.300-4.200 [facility] TSH Qn 1.940 uIU/mL 0.300-4.200 [facility] Thyroid Stim Hormone (TSH)on 08-11-2024 TSH 1.940 uIU/mL Normal 0.300-4.200 [facility] Comment on above: Performed By: #### L 500.4050, L100.0100, L501.9520 #### [facility] [address] [place], [address] Total proteinOrdered By: Shashank Tai on 08-11-2024 Protein [Mass/Vol] 6.7 g/dL 5.9-8.4 [facility] Urinalysis, Completeon 08-11 EPI,SQUAMOUS 0-5 SEEN Normal 5-10 [facility] Comment on above: Order Comment: Urine , Random Performed By: #### L 500.4050, L100.0100, L501.9520 #### [facility] [address] [place], [address] RBC 0-5 SEEN Normal 0-5 [facility] Comment on above: Order Comment: Urine , Random Performed By: #### L 500.4050, L100.0100, L501.9520 #### [facility] [address] [place], [address] BACTERIA 0 SEEN Normal None Seen [facility] Comment on above: Order Comment: Urine , Random Performed By: #### L 500.4050, L100.0100, L501.9520 #### [facility] [address] [place], [address] Mucus Ql (Urine sed) 0 SEEN Normal [facility] Comment on above: Order Comment: Urine , Random Performed By: #### L 500.4050, L100.0100, L501.9520 #### [facility] [address] [place], [address] WBC 0 SEEN Normal 0-5 [facility] Comment on above: Order Comment: Urine , Random Performed By: #### L 500.4050, L100.0100, L501.9520 #### [facility] [address] [place], [address] Urine blood detectionOrdered By: Shashank Tai on 08-11-2024 Urine Occult Blood 10 /ul High Negative [facility] Urine clarityOrdered By: Shashank Tai on 08-11-2024 Clarity (U) Sl. Cloudy Clear [facility] Urine color determinationOrd ered By: Sahshank Tai on 08-11-2024 Color (U) Yellow Yellow [facility] Urine glucose detectionOrder ed By: Shashank Tai on 08-11-2024 Glucose Ql (U) 1000 mg/dl High Normal [facility] Urine leukocyte esterase det ection by dipstickOrdered By: Shashank Tai on 08-11-2024 Leukocyte esterase Test strip Ql (U) Negative Negative [facility] Urine pHOrdered By: Shashank Tai on 08-11-2024 pH (U) 6.0 [pH] 5.0 - 8.0 [facility] Urine sediment bacteria coun t by microscopy (number/high power field)Ordered By: Shashank Tai on 08-11-2024 Bacteria LM.HPF (Urine sed) [#/Area] 0 /[HPF] None Seen [facility] Urine specific gravity measu rementOrdered By: Shashank Tai on 08-11-2024 Specific gravity (U) [Rel density] 1.020 1.002-1.030 [facility] Urine urobilinogen measureme ntOrdered By: Shashank Tai on 08-11-2024 Urobilinogen Ql (U) Normal mg/dl Normal [facility] Urobilinogen Ql (U)Ordered B y: Shashank Tai on 08-11-2024 Urine Urobilinogen Normal mg/dl Normal [facility] White blood cell (WBC) count Ordered By: Shashank Tai on 08-11-2024 WBC (Bld) [#/Vol] 11.0 10*3/uL 4.4-11.0 [facility] White blood cell countOrdere d By: Shashank Tai on 08-11-2024 Urine WBC 0 SEEN /hpf 0-5 [facility] White blood cell count 0 SEEN /hpf 0-5 [facility] Bedside Glucoseon 07-26-2024 FINGERSTICK GLU 256 mg/dL High 74-106 [facility] Comment on above: Result Comment: NORMA MARTIN OF PATIENT CARE PER NURSING PROTOCOL Performed By: #### L 500.4050, L100.0100, L501.9520 #### [facility] Laboratory [address] [place], [address] Colonoscopy Reporton 025 Colonoscopy Report [facility] Medical Records Department [address] [place] [address] Colonoscopy Report MR#: [id number] Acct: [id number] Name: ROGERIO FRIEND Rep #: [id number] : 1970 54 From: Zach Larry DO PCP: Dr. Shashank Tai MD Status:REG [facility] Patient Name: Rogerio Friend Procedure Date: 07/26/2024 10:32 AM Date of : 1970 Age: 54 Procedure: Colonoscopy Indications: Screening for colorectal malignant neoplasm, Incidental - Abdominal pain in the left lower quadrant Providers: Zach Larry DO Medicines: Monitored Anesthesia Care Patient Profile: This is a 54 year old female. Refer to note in patient chart for documentation of history and physical. Patient has symptoms of acute abdominal cramping and acute abdominal distention. Last Colonoscopy: none. The patient's first colonoscopy is today. Complications: No immediate complications. Procedure: Pre-Anesthesia Assessment: - Prior to the procedure, a History and Physical was performed, and patient medications and allergies were reviewed. The patient is competent. The risks and benefits of the procedure and the sedation options and risks were discussed with the patient. All questions were answered and informed consent was obtained. Patient identification and proposed procedure were verified by the physician in the pre-procedure area. Mental Status Examination: alert and oriented. Airway Examination: normal oropharyngeal airway and neck mobility. Respiratory Examination: clear to auscultation. CV Examination: normal. Prophylactic Antibiotics: The patient does not require prophylactic antibiotics. Prior Anticoagulants: The patient has taken no anticoagulant or antiplatelet agents except for NSAID medication. ASA Grade Assessment: III - A patient with severe systemic disease. After reviewing the risks and benefits, the patient was deemed in satisfactory condition to undergo the procedure. The anesthesia plan was to use monitored anesthesia care (MAC). Immediately prior to administration of medications, the patient was re-assessed for adequacy to receive sedatives. The heart rate, respiratory rate, oxygen saturations, blood pressure, adequacy of pulmonary ventilation, and response to care were monitored throughout the procedure. The physical status of the patient was re-assessed after the procedure. After I obtained informed consent, the scope was passed under direct vision. Throughout the procedure, the patient's blood pressure, pulse, and oxygen saturations were monitored continuously. The Colonoscope was introduced through the anus and advanced to the terminal ileum. The colonoscopy was performed without difficulty. The patient tolerated the procedure well. The quality of the bowel preparation was fair. The terminal ileum, ileocecal valve, appendiceal orifice, and rectum were photographed. Scope In: 10:34:09 AM Scope Withdrawal Time 0 hours 7 minutes 22 seconds Scope Out: 10:47:27 AM Total Procedure Duration Time 0 hours 13 minutes 18 seconds Findings: The perianal and digital rectal examinations were normal. Three sessile polyps were found in the transverse colon and ascending colon. The polyps were 7 mm in size. Stool was found in the rectum, in the recto-sigmoid colon, in the sigmoid colon, in the descending colon, at the splenic flexure and in the transverse colon, precluding visualization. Multiple small and large-mouthed diverticula were found in the recto-sigmoid colon, sigmoid colon and descending colon. A localized area of the terminal ileum was congested. Impression: - Preparation of the colon was fair. - Three 7 mm polyps in the transverse colon and in the ascending colon. - Stool in the rectum, in the recto-sigmoid colon, in the sigmoid colon, in the descending colon, at the splenic flexure and in the transverse colon. - Diverticulosis in the recto-sigmoid colon, in the sigmoid colon and in the descending colon. - Congested mucosa in the terminal ileum. - No specimens collected. Recommendation: - Discharge patient to home. - Resume previous diet. - Continue present medications. - Await pathology results. - Repeat colonoscopy in 3 months because the bowel preparation was suboptimal. - Return to GI office. Procedure Code(s): --- Professional --- G0121, Colorectal cancer screening; colonoscopy on individual not meeting criteria for high risk CPT copyright 2021 [employer]. All rights reserved. The codes documented in this report are preliminary and upon information systems coordinator review may be revised to meet current compliance requirements. Zach Larry DO 07/26/2024 11:01:19 AM This report has been signed electronically. Number of Addenda: 0 Note Initiated On: 07/26/2024 10:32 AM 07/26/24 1101 Date (more content not included)... Normal [facility] EGD Reporton 07-26-2024 EGD Report [facility] Medical Records Department [address] [place] [address] EGD Report MR#: [id number] Acct: [id number] Name: ROGERIO FRIEND Rep #: [id number] : 1970 54 From: Zach Larry DO PCP: Dr. Shashank Tai MD Status:[facility] Patient Name: Rogerio Friend Procedure Date: 07/26/2024 10:15 AM Date of : 1970 Age: 54 Procedure: Upper GI endoscopy Indications: Functional Dyspepsia, Dyspepsia, Indigestion, Heartburn, Suspected esophageal reflux, Failure to respond to medical treatment Providers: Zach Larry DO Medicines: Monitored Anesthesia Care Patient Profile: This is a 54 year old female. Refer to note in patient chart for documentation of history and physical. Patient has symptoms of acute abdominal cramping and acute abdominal distention. Complications: No immediate complications. Procedure: Pre-Anesthesia Assessment: - Prior to the procedure, a History and Physical was performed, and patient medications and allergies were reviewed. The patient is competent. The risks and benefits of the procedure and the sedation options and risks were discussed with the patient. All questions were answered and informed consent was obtained. Patient identification and proposed procedure were verified by the physician in the pre-procedure area. Mental Status Examination: alert and oriented. Airway Examination: normal oropharyngeal airway and neck mobility. Respiratory Examination: clear to auscultation. CV Examination: normal. Prophylactic Antibiotics: The patient does not require prophylactic antibiotics. Prior Anticoagulants: The patient has taken no anticoagulant or antiplatelet agents except for NSAID medication. ASA Grade Assessment: III - A patient with severe systemic disease. After reviewing the risks and benefits, the patient was deemed in satisfactory condition to undergo the procedure. The anesthesia plan was to use monitored anesthesia care (MAC). Immediately prior to administration of medications, the patient was re-assessed for adequacy to receive sedatives. The heart rate, respiratory rate, oxygen saturations, blood pressure, adequacy of pulmonary ventilation, and response to care were monitored throughout the procedure. The physical status of the patient was re-assessed after the procedure. After obtaining informed consent, the endoscope was passed under direct vision. Throughout the procedure, the patient's blood pressure, pulse, and oxygen saturations were monitored continuously. The Colonoscope was introduced through the mouth, and advanced to the second part of duodenum. The upper GI endoscopy was accomplished without difficulty. The patient tolerated the procedure well. Scope In: 10:28:16 AM Scope Out: 10:31:53 AM Total Procedure Duration Time 0 hours 3 minutes 37 seconds Findings: The Z-line was irregular and was found 40 cm from the incisors. Biopsies were taken with a cold forceps for histology. Verification of patient identification for the specimen was done. Estimated blood loss was minimal. A small hiatal hernia was present. Patchy mildly erythematous mucosa without bleeding was found in the gastric body. The second portion of the duodenum was normal. Impression: - Z-line irregular, 40 cm from the incisors. Biopsied. - Small hiatal hernia. - Erythematous mucosa in the gastric body. - Normal second portion of the duodenum. Recommendation: - Discharge patient to home. - Resume previous diet. - Continue present medications. - Await pathology results. Procedure Code(s): --- Professional --- 34414, Esophagogastroduodenoscop y, flexible, transoral; with biopsy, single or multiple CPT copyright 2021 [employer]. All rights reserved. The codes documented in this report are preliminary and upon information systems coordinator review may be revised to meet current compliance requirements. Zach Larry DO 07/26/2024 10:55:56 AM This report has been signed electronically. Number of Addenda: 0 Note Initiated On: 07/26/2024 10:15 AM 07/26/24 1056 Date Zach Banda Signature: Date (if indicated) CC: Dr. Shashank Tai MD; Zach Larry, Date Dictated: 07/26/24 1015 Date Transcribed: Outreach Professional: RF Signed Normal [facility] Glucose measurement at [facility] deOrdered By: Zach Larry on 07-26-2024 Bedside Glucose (Misc Panel) 256 mg/dL High 74-106 [facility] Comment on above: MANAGEMENT OF PATIEN T CARE PER NURSING PROTOCOL Glucose [Mass/Vol] 256 mg/dL High 74-106 [facility] Comment on above: MANAGEMENT OF PATIEN T CARE PER NURSING PROTOCOL MR/POSTOP.ANEon 07-26-2024 MR/POSTOP.[facility] Medical Records Department [address] [place] [address] Anesthesia Postop Eval I 07/26/24 1058 MR#: [id number] Acct: [id number] Name: ROGERIO FRIEND Rep #: [id number] : 1970 54 From: Gorge Zhao PCP: Dr. Shashank Tai MD Status:REG [facility] [place] Race: C Location: [place] [address] Anesthesia: Postop Eval I Current Vital Signs Temperature: 98.8 F Pulse Rate: 60 Blood Pressure: 102/61 Respiratory Rate: 16 Pulse Ox: 98 Oxygen Delivery Method: Room Air Assessment Airway patent: Yes Spontaneous unlabored respirations: Yes Mental status: Awake and Calm nausea: No Vomiting: No Anesthesia Complication: No Fluid Hydration Crystalloid volume administer (ml): 60 Total IV fluid infused: 60 Progress Note Anesthesia document: Postop Eval 1 completed: Yes 07/26/24 105 Date Gorge Mccloud Signature: Date CC: Signed Normal [facility] [id number] 07-26-2024 MR/POSTOPAN2 [facility] Medical Records Department [address] [place] [address] Anesthesia Postop Eval II 07/26/24 1123 MR#: [id number] Acct: [id number] Name: ROGERIO FRIEND Rep #: [id number] : 1970 54 From: Geraldo Castillo MD PCP: Dr. Shashank Tai MD Status:REG [facility] Y Race: C Location: [place] [address] Anesthesia Postop Eval I Sum Postop Eval Completion status Anesthesia document: Postop Eval 1 completed: Yes Anesthesia Postop Eval I Summary Anesthesia Postop Eval I Summary: Anesthesia Postop Eval I: Assessment Summary Airway patent Yes 07/26/24 10:59 [email or web address] Spontaneous unlabored Yes 07/26/24 10:59 [email or web address] respirations Mental status Awake,Calm 07/26/24 10:59 [email or web address] nausea No 07/26/24 10:59 [email or web address] Vomiting No 07/26/24 10:59 [email or web address] Anesthesia Postop Eval I: Fluid Summary Crystalloid volume administer 60 07/26/24 10:59 [email or web address] (ml) Colloids volume administered ( ml) Blood Product volume administered (ml) Total IV fluid infused 60 07/26/24 10:59 [email or web address] Anesthesia Postop Eval I: Summary Notes Anesthesia Complication No 07/26/24 10:59 [email or web address] Anesthesia Complication Comment: Post-operative progress note Anesthesia: Postop Eval II Evaluation Mental status: Awake and Calm Pain Level: 2 nausea: No Vomiting: No Complications Anesthesia Complication: No 07/26/24 1123 Date Geraldo Castillo MD Cosigner Signature: Date CC: Signed Normal [facility] P53 (initial)on 07-26-2024 P53 (initial) ----- Patient Age/Sex Location Account Attending Physician ROGERIO FRIEND 54/F EN [id number] Zach Larry DO Specimen: [id number] Received: 07/27/24 Status: KEI Garcia Num: [id number] Spec Type: IMMUNO Subm Dr: Zach Larry, PHYSICIAN INSTITUTION [place] [address] SPECIMEN INFORMATION: Tissue Source: A- Distal esophagus biopsy Clinical Info: Nausea, dry heaves, change in bowel habits, constipation, personal history of colonic polyps Specimen Number: [id number] CPT code: 31718,32326 METHODOLOGY: Deparaffinized sections of prefer/formalin-fixed tissue or PAP/DQ stained slides are incubated with monoclonal/polyclonal antibodies/oligonucleotid e probes. Localization is made via biotin free immunoperoxidase method. Appropriate controls are performed and reacted as expected. Results on target cell population are indicated in the following table: RESULTS: ANTIBODY / CLONE RESULT Block A P53 (DO-7) positive, focal, weak (wild type pattern) Ki-67 (30-9) positive, low These tests were developed and their performance characteristics determined by [facility]. They may not have been cleared or approved by the U.S. Food and Drug Administration. The FDA has determined that such clearance or approval is not necessary. The above immunohistochemical/dualI SH markers are ordered and reviewed by the Pathologist. INTERPRETATION: A. Distal esophagus, biopsy: Negative for dysplasia. 07/28/2024 Signed (signature on file) Dr. Chay Chandra MD 07/28/24 1206 Normal [facility] Comment on above: Performed By: #### L 400.0001 #### [facility] [address] [place], [place], [id number] Special Stain Group Ion - Special Stain Group I ------- Patient Age/Sex Location Account Attending Physician ROGERIO FRIEND 54/F EN [id number] Zach Larry DO Specimen: [id number] Received: 07/26/24 Status: KEI Gacria Num: [id number] Spec Type: EMELY Hernandez Dr: Zach Larry DO HEADMICHI OPERATION: Colonoscopy, EGD biopsy PRE-OP DIAGNOSIS: Nausea, dry heaves, change in bowel habits, constipation, personal history of colonic polyps TISSUE SUBMITTED: A- Distal esophagus biopsy, B- Ascending polyps x2 biopsy, C- Terminal ileum biopsy, D- Transverse polyp biopsy MICROSCOPIC DIAGNOSIS A. Distal esophagus, biopsy: Fragments of gastroesophageal mucosa with focal intestinal metaplasia (goblet cell metaplasia), consistent with Torres's esophagus. Mild to moderate chronic inflammation and minimal acute inflammation. Negative for dysplasia. See comment. B. Ascending colon polyps x2, biopsy: Fragments of tubular adenoma. C. Terminal ileum, biopsy: Fragments of small intestinal mucosa, no pathologic diagnosis. D. Transverse polyp, biopsy: Fragments of tubular adenoma. SJ.mr 07/27/2024 COMMENT A. Alcian blue/PAS stain with matched control is used in the evaluation of the specimen. Immunohistochemistry ([id number]) for P53 and Ki-67 will be performed, and results will be reported separately. MICROSCOPIC DESCRIPTION Slides are reviewed. GROSS DESCRIPTION A. Received in fixative is one container labeled with the patient's name and designated Distal esophagus biopsy. The specimen consists of multiple irregular fragments of light negro soft tissue that in aggregate measure 0.7 x 0.5 x 0.2 cm. The specimen is totally submitted in one cassette. B. Received in fixative is one container labeled with the patient's name and designated Ascending polyp biopsy. The specimen consists of two irregular fragments of light negor soft tissue that in aggregate measure 0.8 x 0.5 x 0.1 cm. The specimen is totally submitted in one cassette. C. Received in fixative is one container labeled with the patient's name and designated Patient Age/Sex Location Account Attending Physician ROGERIO FRIEND 54/F EN [id number] Zach Larry DO Terminal ileum biopsy. The specimen consists of two irregular fragments of light negro soft tissue that in aggregate measure 0.7 x 0.5 x 0.1 cm. The specimen is totally submitted in one cassette. D. Received in fixative is one container labeled with the patient's name and designated Transverse polyp biopsy. The specimen consists of two irregular fragments of light negro soft tissue that in aggregate measure 0.8 x 0.4 x 0.1 cm. The specimen is totally submitted in one cassette. 07/26/2024 TC:1 CPT:14621y8,50092 ADDENDUM Addendum 1 Entered: 11/15/24-48 [employer] - TISSUE CYPHER - TORRES'S ESOPHAGUS REPORT (BLOCK A1) RISK CLASS: INTERMEDIATE RISK SCORE: 6.0 5-YEAR PROBABILITY OF PROGRESSION: 9% Please see complete above mentioned consultation report in EMR Addendum Signed (signature on file) Dr. Meagan Armstrong MD 11/15/24 1248 Patient Age/Sex Location Account Attending Physician ROGERIO FRIEND 54/F EN [id number] Zach Larry Signed (signature on file) Dr. Chay Chandra MD 07/28/24 1205 Normal [facility] Comment on above: Performed By: #### L 3890.6202, L3100.0460, L3890.6102, L3100.0300, L3890.6301 #### [facility] Laboratory [address] [place], [address] /MELLOon 07-21-2024 MR/PAT.[facility] Medical Records Department [address] [place] [address] PAT - Anesthesia 07/21/24 1455 MR#: [id number] Acct: [id number] Name: ROGERIO FRIEND Rep #: [id number] : 1970 54 From: Gustavo Martinez MD PCP: Dr. Shashank Tai MD Status:PRE [facility] [place] Race: C Location: EN Pre-Assessment Diagnosis/Proposed Procedure Planned Operative Procedure(s): Colonoscopy,EGD Anesthesia History Anesthesia History - space scheduler: Anesthesia History - space scheduler Hx Hospitalization No 07/21/24 13:46 Any Problems With Anesthesia No 07/21/24 13:46 Cholinesterase deficiency No 07/21/24 13:46 You/Your Family Experience No 07/21/24 13:46 fever (hyperthermia) with Relationship Recent Exposure to Contagious No 06/06/24 11:04 Disease Does patient have nerve No 07/21/24 13:46 stimulator Patient instructed to have device shut off --Does patient have Pacemaker or ICD? When Was Last Pacemaker Check QUESTION #4 FULL TEXT: You/Your Family Experience fever (hyperthermia) with Anesthesia Last Oral Intake Last Oral intake: Last Oral Intake NPO since Meds taken in AM with sips of water? Meds patient instructed to take am of surgery PONV PONV - space scheduler: PONV - space scheduler Female Yes 07/21/24 13:46 HX of Motion Sickness No 07/21/24 13:46 HX of N/V After Surgery No 07/21/24 13:46 Non-Smoker No 07/21/24 13:46 Duration of Surgery greater No 07/21/24 13:46 than 60 minutes Number of Risk Factors 1 07/21/24 13:46 PONV Score Low Risk 07/21/24 13:46 Height Weight Height Weight: Anesthesia: Height Weight Height 5 ft 7 in 06/06/24 11:04 Respiratory Assessment Respiratory Assessment - space scheduler: Respiratory Tract Infection Hx - space scheduler Hx Respiratory Tract Infection No 07/21/24 13:46 STOP Sleep Apnea STOP Sleep Apnea - space scheduler: STOP Sleep Apnea - space scheduler Hx Hypertension No 07/21/24 13:46 Hx Sleep Apnea Yes: NON-COMPLIANT 07/21/24 13:46 CPAP No 07/21/24 13:46 BIPAP No 07/21/24 13:46 Do you snore loudly (louder than talking or can be heard Do you often feel tired/ fatigued/ sleepy during daytime? Has anyone observed you stop breathing during sleep? STOP Results Positive 07/21/24 13:46 QUESTION #5 FULL TEXT : Do you snore loudly (louder than talking or can be heard through closed doors)? 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 Specify any problems Hx of Preganancy in last 3 No 07/21/24 13:46 Months Nurse Filling Out Transfusion VCHRISTIN 07/21/24 13:46 Questions: Date: 07/21/24 07/21/24 13:46 Time: 13:47 07/21/24 13:46 Patient unable to answer at this time (ie. confused, unrespo /Reproduction History /Reproductive History - space scheduler: /Reproductive Hx- space scheduler Hx Now No 07/21/24 13:46 Gestational Age (in weeks): EDC: Hx Hx Para Hx Section SAB No 07/21/24 13:46 [facility] Medical History (Updated 07/21/24 @ 13:46 by Rosa Chavarria) Low iron High cholesterol Shortness of breath on exertion Hypertension URI (upper respiratory infection) Contact with or exposure to other viral diseases Multifocal pneumonia Sleep apnea History of kidney stones Migraine headache Hx of colonic polyp Wears dentures Wears glasses Bruising Depression Anxiety DVT (deep venous thrombosis) Easy bruising Excessive bleeding Injury of head and neck Gastric reflux Smoker Chronic cough Leg cramps History of echocardiogram Contraceptive management Menorrhagia with irregular cycle 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 Normal [facility] Oncology Visit Reporton 06-03 Oncology Visit Report [facility] [place] [address] OFFICE VISIT Date of Service: 06/23/24 1111 MR#: [id number] Acct: [id number] Name: ROGERIO FRIEND Rep #: [id number] : 1970 From: Rajni De LeónC Age/Sex: 54/F Location: [facility] Status: Signed HPI Subjective Date of Service 06/23/24 Chief Complaint iron deficiency anemia History of Present Illness 52-year-old woman was found to have iron deficiency anemia with hemoglobin of 10. She reports that she was found to have iron deficiency anemia in December 2019 after she developed arterial embolism at [facility] (remained warfarin since). She was started on iron supplements orally. She was seen on March 09, [address] Tai for pica and was referred for further evaluation. FOBT was negative on 04/10/2020. She received Iron infusion 200mg daily x 5 in April 2020. Iron profile improved, anemia corrected. Had endoscopy on 12/18/2020 which showed Torres's esophagus in the lower esophagus, tubular adenomas in the colon. She is on Oral Iron supplements. Had Menorrhagia in April, Uterine ablation was done in Jul. Developed iron deficiency anemia again, received Iron infusion in November 2022. Interval History The patient is presenting to clinic for an annual visit (over due from January 2024). Confirms she is taking iron twice daily as advised. Deals with chronic constipation and nausea (addressing with GI). Scheduled for colonoscopy on 07/26/[address] Larry. Specifically denies dysphagia, weight loss, abdominal pain, swelling or pain of her extremities, melena hematochezia. Was recently treated with antibiotics and steroids for acute bacterial sinusitis. [facility] Medical History Hx of colonic polyp URI (upper respiratory infection) Contact with or exposure to other viral diseases Multifocal pneumonia Sleep apnea History of kidney stones Migraine headache Wears dentures Wears glasses Bruising Depression Anxiety DVT (deep venous thrombosis) Easy bruising Excessive bleeding Injury of head and neck Gastric reflux Smoker Chronic cough Leg cramps History of echocardiogram Contraceptive management Menorrhagia with irregular cycle 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 Leukocytosis Diabetes mellitus Surgical History Status post endometrial ablation History of esophagogastroduodenoscop y (EGD) Hx of partial nephrectomy History of embolectomy H/O tubal ligation Hx of cholecystectomy H/O lithotripsy Family History Brother Diabetes Father Diabetes Mother Diabetes Uncle Diabetes Skin cancer Colon cancer Uncle Diabetes Aunt Breast cancer Social History household members: family current occupational status: employed current occupation: [employer] history of recent travel: No sexually active: No Smoking Status: Current every day smoker tobacco type: cigarettes alcohol intake: current alcohol intake frequency: holidays/special occasions only substance use type: does not use what type of physical activity do you participate in: other seatbelt use: always do you feel safe at home: Yes additional social history: single ROS ROS Narrative Negative except as documented in the interval HPI Intake Vital Signs 04/01/24 07:57 06/06/24 11:04 06/23/24 11:15 06/23/24 11:17 Height 5 ft 7 in 5 ft 7 in 5 ft 7 in 5 ft 7 in Weight: 185 lb 3 oz BMI 29.0 BP 123/79 H Blood Pressure Location Lt brachial Position Sitting Respiration 16 Pulse 82 Pulse Source Monitor Temp 98.5 F Temperature Source Temporal Artery Pulse Oximetry (%) 99 Oxygen Delivery Method room air Intake Is patient in pain?: Yes (abdominal pain ) Pain scale (1-10): 1 Allergies latex Allergy (Mild, Verified 06/23/24 11:12) rash Penicillins (PCN) Allergy (Verified 06/23/24 11:12) Hives Medications ???Medication ???Instructions ???Recorded ???Confirmed ???Type metformin 500 mg tablet 1,000 mg PO BID diabetes 02/28/14 06/23/24 History clopidogrel 75 mg tablet 75 mg PO DAILY 12/14/19 06/23/24 History warfarin 5 mg tablet 7 mg PO DAILY DVT 12/14/19 06/23/24 History biotin 5,000 mcg disintegrating 10,000 mcg PO DAILY 04/03/20 06/23/24 History tablet doxepin 10 mg capsule 10 mg PO PRN PRN Sleep 12/14/20 06/23/24 History bupropion HCl 150 mg tablet,12 hr 150 mg PO BID 07/05/22 06/23/24 History sustained-release valsartan 160 mg tablet 160 mg PO DAILY 07/05/22 06/23/24 History dapagliflozin propanediol 10 mg 10 mg PO DAILY 05/15/23 06/23/24 History tablet (Farxiga) pioglitazone (more content not included)... Normal [facility] Absolute neutrophil countOrd ered By: Deven Bauer on 06-15-2024 Neutrophils (Bld) [#/Vol] 6.2 10*3/uL 2.0-7.7 [facility] Albumin to globulin ratioOrd ered By: [facility] on 06-15-2024 Albumin/Globulin [Mass ratio] 1.1 {ratio} 0.9-2.4 [facility] Basophil percentageOrdered B y: Deven Bauer on 06-15-2024 Basophils/100 WBC (Bld) 0.8 % 0-1 [facility] Bilirubin, totalOrdered By: Deven [facility] on 06-15-2024 Bilirubin [Mass/Vol] 0.50 mg/dL 0.20-1.00 [facility] Comment on above: For patients on eltr ombopag therapy, use of Dimension Matthews TBIL is not recommended. Blood urea nitrogen (BUN)/cr eatinine ratioOrdered By: Deven Joann on 06-15-2024 Urea nitrogen/Creatinine [Mass ratio] 24.4 mg/mg High 10-20 [facility] CBC W/Diff, Automatedon 06-02 Absolute Lymph 4.23 X10 3/uL Normal 0.83-4.51 [facility] Comment on above: Performed By: #### L 500.4050, L100.0100, L501.9520 #### [facility] Laboratory [address] [place], [address] Absolute Neut 6.2 X10 3/uL Normal 2.0-7.7 [facility] Comment on above: Performed By: #### L 500.4050, L100.0100, L501.9520 #### [facility] Laboratory [address] [place], [address] Basophils/100 WBC (Bld) 0.8 % Normal 0-1 [facility] Comment on above: Performed By: #### L 500.4050, L100.0100, L501.9520 #### [facility] Laboratory [address] [place], [address] Eosinophils/100 WBC (Bld) 1.1 % Normal 0-5 [facility] Comment on above: Performed By: #### L 500.4050, L100.0100, L501.9520 #### [facility] Laboratory [address] [place], [address] Erythrocyte distribution width (RBC) [Ratio] 13.7 % Normal 11.6-14.6 [facility] Comment on above: Performed By: #### L 500.4050, L100.0100, L501.9520 #### [facility] Laboratory [address] [place], [address] Hematocrit (Bld) [Volume fraction] 42.4 % Normal 37-47 [facility] Comment on above: Performed By: #### L 500.4050, L100.0100, L501.9520 #### [facility] Laboratory [address] [place], [address] Hemoglobin (Bld) [Mass/Vol] 14.1 g/dL Normal 12.0-15.0 [facility] Comment on above: Performed By: #### L 500.4050, L100.0100, L501.9520 #### [facility] Laboratory [address] [place], [address] IG% 0.800 Normal 0.0-0.9 [facility] Comment on above: Result Comment: IG% - Immature Granulocytes (promyelocytes, myelocytes and metamyelocytes) > 1% indicates that a LEFT SHIFT is Present. Performed By: #### L 500.4050, L100.0100, L501.9520 #### [facility] Laboratory [address] [place], [address] Lymphocytes/100 WBC (Bld) 37.4 % Normal 19-41 [facility] Comment on above: Performed By: #### L 500.4050, L100.0100, L501.9520 #### [facility] Laboratory [address] [place], [address] MCH (RBC) [Entitic mass] 30.2 pg Normal 27.0-32.0 [facility] Comment on above: Performed By: #### L 500.4050, L100.0100, L501.9520 #### [facility] Laboratory [address] [place], [address] MCHC (RBC) [Mass/Vol] 33.3 g/dL Normal 32-36 [facility] Comment on above: Performed By: #### L 500.4050, L100.0100, L501.9520 #### [facility] Laboratory [address] [place], [address] MCV (RBC) [Entitic vol] 90.8 fL Normal 81-99 [facility] Comment on above: Performed By: #### L 500.4050, L100.0100, L501.9520 #### [facility] Laboratory [address] [place], [address] Monocytes/100 WBC (Bld) 5.5 % Normal 0-10 [facility] Comment on above: Performed By: #### L 500.4050, L100.0100, L501.9520 #### [facility] Laboratory [address] [place], [address] Neutrophils/100 WBC (Bld) 54.4 % Normal 47-70 [facility] Comment on above: Performed By: #### L 500.4050, L100.0100, L501.9520 #### [facility] Laboratory [address] [place], [address] Nucleated RBC (Bld) [#/Vol] 0 10*3/uL Normal 0-5 [facility] Comment on above: Performed By: #### L 500.4050, L100.0100, L501.9520 #### [facility] Laboratory [address] [place], [address] Platelet mean volume (Bld) [Entitic vol] 9.9 fL Normal 6.2-12.0 [facility] Comment on above: Performed By: #### L 500.4050, L100.0100, L501.9520 #### [facility] Laboratory [address] [place], [address] Platelets (Bld) [#/Vol] 393 10*3/uL Normal 150-450 [facility] Comment on above: Performed By: #### L 500.4050, L100.0100, L501.9520 #### [facility] Laboratory [address] [place], [address] RBC (Bld) [#/Vol] 4.67 10*6/uL Normal 4.2-5.4 [facility] Comment on above: Performed By: #### L 500.4050, L100.0100, L501.9520 #### [facility] Laboratory [address] [place], [address] RDW SD 45.5 fl High 35.1-43.9 [facility] Comment on above: Performed By: #### L 500.4050, L100.0100, L501.9520 #### [facility] Laboratory [address] [place], [address] WBC (Bld) [#/Vol] 11.3 10*3/uL High 4.4-11.0 [facility] Comment on above: Performed By: #### L 500.4050, L100.0100, L501.9520 #### [facility] Laboratory [address] [place], [address] Carbon dioxide measurementOr dered By: Deven David on 06-15-2024 CO2 [Moles/Vol] 32.0 mmol/L 21.0-32.0 [facility] Chloride measurementOrdered By: Deven David on 06-15-2024 Chloride [Moles/Vol] 101 mmol/L 98-107 [facility] Comprehensive Metabolic Prof ilon 06-15-2024 Albumin [Mass/Vol] 3.4 g/dL Normal 3.2-5.0 [facility] Comment on above: Order Comment: 1 Performed By: #### L 500.4050, L100.0100, L501.9520 #### [facility] Laboratory [address] [place], [address] Albumin/Globulin [Mass ratio] 1.1 {ratio} Normal 0.9-2.4 [facility] Comment on above: Order Comment: 1 Performed By: #### L 500.4050, L100.0100, L501.9520 #### [facility] Laboratory [address] [place], [address] ALK P 82 U/L Normal 45-117 [facility] Comment on above: Order Comment: 1 Performed By: #### L 500.4050, L100.0100, L501.9520 #### [facility] Laboratory [address] [place], [address] ALT [Catalytic activity/Vol] 14 U/L Normal 13-56 [facility] Comment on above: Order Comment: 1 Performed By: #### L 500.4050, L100.0100, L501.9520 #### [facility] Laboratory [address] [place], [address] AST [Catalytic activity/Vol] 7 U/L Low 15-37 [facility] Comment on above: Order Comment: 1 Performed By: #### L 500.4050, L100.0100, L501.9520 #### [facility] Laboratory [address] [place], [address] Bilirubin [Mass/Vol] 0.50 mg/dL Normal 0.20-1.00 [facility] Comment on above: Order Comment: 1 Result Comment: For patients on eltrombopag therapy, use of Dimension Matthews TBIL is not recommended. Performed By: #### L 500.4050, L100.0100, L501.9520 #### [facility] Laboratory [address] [place], [address] BUN/CRE 24.4 RATIO High 10-20 [facility] Comment on above: Order Comment: 1 Performed By: #### L 500.4050, L100.0100, L501.9520 #### [facility] Laboratory [address] [place], [address] CA,Total 9.3 mg/dL Normal 8.5-10.1 [facility] Comment on above: Order Comment: 1 Performed By: #### L 500.4050, L100.0100, L501.9520 #### [facility] Laboratory [address] [place], [address] Chloride [Moles/Vol] 101 mmol/L Normal 98-107 [facility] Comment on above: Order Comment: 1 Performed By: #### L 500.4050, L100.0100, L501.9520 #### [facility] [address] [place], [address] CO2 [Moles/Vol] 32.0 mmol/L Normal 21.0-32.0 [facility] Comment on above: Order Comment: 1 Performed By: #### L 500.4050, L100.0100, L501.9520 #### [facility] Laboratory [address] [place], [address] Creatinine [Mass/Vol] 0.61 mg/dL Normal 0.55-1.02 [facility] Comment on above: Order Comment: 1 Result Comment: The validity of the calculated GFR GFRAA in patients over 70 years has not been determined. Clinical correlation is essential. Performed By: #### L 500.4050, L100.0100, L501.9520 #### [facility] [address] [place], [address] ECRCL 121.36 ml/min Normal [facility] Comment on above: Order Comment: 1 Performed By: #### L 500.4050, L100.0100, L501.9520 #### [facility] [address] [place], [address] EST GFR - AA 130 mL/min Normal >60 [facility] Comment on above: Order Comment: 1 Result Comment: Afri can Cymraes GFR Calc Performed By: #### L 500.4050, L100.0100, L501.9520 #### [facility] [address] [place], [address] GAP 2 Low 5-15 [facility] Comment on above: Order Comment: 1 Performed By: #### L 500.4050, L100.0100, L501.9520 #### [facility] [address] [place], [address] GFR/1.73 sq M.predicted among non-blacks MDRD (S/P/Bld) [Vol rate/Area] 108 mL/min/{1.73_m2} Normal >60 [facility] Comment on above: Order Comment: 1 Result Comment: Non- GFR Calc Performed By: #### L 500.4050, L100.0100, L501.9520 #### [facility] [address] [place], [address] Globulin (S) [Mass/Vol] 3.0 g/dL Normal 2.2-4.2 [facility] Comment on above: Order Comment: 1 Performed By: #### L 500.4050, L100.0100, L501.9520 #### [facility] [address] [place], [address] Glucose [Mass/Vol] 277 mg/dL High 74-106 [facility] Comment on above: Order Comment: 1 Result Comment: Gluc ose result greater than or equal to 200 mg/dL suggests DIABETES MELLITUS per A.D.A. criteria. Performed By: #### L 500.4050, L100.0100, L501.9520 #### [facility] [address] [place], [address] Potassium [Moles/Vol] 3.6 mmol/L Normal 3.5-5.1 [facility] Comment on above: Order Comment: 1 Performed By: #### L 500.4050, L100.0100, L501.9520 #### [facility] [address] [place], [address] Sodium [Moles/Vol] 135 mmol/L Low 136-145 [facility] Comment on above: Order Comment: 1 Performed By: #### L 500.4050, L100.0100, L501.9520 #### [facility] [address] [place], [address] T PROT 6.4 g/dL Normal 6.4-8.2 [facility] Comment on above: Order Comment: 1 Performed By: #### L 500.4050, L100.0100, L501.9520 #### [facility] [address] [place], [address] Urea nitrogen [Mass/Vol] 15 mg/dL Normal 7-18 [facility] Comment on above: Order Comment: 1 Performed By: #### L 500.4050, L100.0100, L501.9520 #### [facility] [address] [place], [address] Eosinophil percentageOrdered By: Deven David on 06-15-2024 Eosinophils/100 WBC (Bld) 1.1 % 0-5 [facility] Erythrocyte distribution wid th ratioOrdered By: Deven David on 06-15-2024 Erythrocyte distribution width (RBC) [Ratio] 13.7 % 11.6-14.6 [facility] Erythrocyte distribution wid th standard deviationOrdered By: Deven David on 06-15-2024 Erythrocyte distribution width (RBC) [Entitic vol] 45.5 fL High 35.1-43.9 [facility] Estimated glomerular filtrat ion rate (GFR) AmericanOrdered By: Deven David on 06-15-2024 Estimated GFR (MDRD) Amer 130 mL/min >60 [facility] Comment on above: GFR Calc Estimation of creatinine stephanie aranceOrdered By: Devne David on 06-15-2024 Estimated Creatinine Clearance Calc 121.36 ml/min [facility] Ferritinon 06-15-2024 Ferritin [Mass/Vol] 103 ng/mL Normal 8-252 [facility] Comment on above: Order Comment: 1 Performed By: #### L 500.4050, L100.0100, L501.9520 #### [facility] [address] [facility] [place], [place], [address] Ferritin measurementOrdered By: Deven David on 06-15-2024 Ferritin [Mass/Vol] 103 ng/mL 8-252 [facility] Glomerular filtration rate ( GFR) estimationOrdered By: Deven David on 06-15-2024 Estimated GFR (MDRD) Non-Af Amer 108 mL/min >60 [facility] Comment on above: Non- GFR Calc Glucose measurementOrdered B y: Deven David on 06-15-2024 Glucose [Mass/Vol] 277 mg/dL High 74-106 [facility] Comment on above: Glucose result great er than or equal to 200 mg/dLsuggests DIABETES MELLITUS per A.D.A. criteria. Hematocrit Auto (Bld) [Volum e fraction]Ordered By: Deven David on 06-15-2024 Hematocrit (Bld) [Volume fraction] 42.4 % 37-47 [facility] Hemoglobin measurementOrdere d By: Deven David on 06-15-2024 Hemoglobin (Bld) [Mass/Vol] 14.1 g/dL 12.0-15.0 [facility] Immature granulocytes/100 WB C Auto (Bld)Ordered By: Deven David on 06-15-2024 Immature granulocytes/100 WBC (Bld) 0.800 % 0.0-0.9 [facility] Comment on above: IG% - Immature Granu locytes (promyelocytes, myelocytes and metamyelocytes) > 1% indicates that a LEFT SHIFT is Present. Iron (Unsp spec) [Mass/Mass] Ordered By: Deven David on 06-15-2024 Iron [Mass/Vol] 110 ug/dL 50-170 [facility] Iron saturation [Mass fracti on]Ordered By: [facility]24 Iron Saturation 40.7 % 15.0-55.0 [facility] Iron+Iron Binding Capacityon 06-15-2024 Iron [Mass/Vol] 110 ug/dL Normal 50-170 [facility] Comment on above: Order Comment: 1 Performed By: #### L 500.4050, L100.0100, L501.9520 #### [facility] Laboratory [address] [place], [address] IRON SATURATION 40.7 Normal 15.0-55.0 [facility] Comment on above: Order Comment: 1 Performed By: #### L 500.4050, L100.0100, L501.9520 #### [facility] Laboratory [address] [place], [address] TIBC 270 ug/dL Normal 250-450 [facility] Comment on above: Order Comment: 1 Performed By: #### L 500.4050, L100.0100, L501.9520 #### [facility] Laboratory [address] [place], [address] LDHon 06-15-2024 LDH 118 U/L Normal 84-246 [facility] Comment on above: Order Comment: 1 Performed By: #### L 500.4050, L100.0100, L501.9520 #### [facility] Laboratory [address] [place], [address] Laboratory - Chemistry and C hemistry - challengeOrdered By: Deven David on 06-15-2024 AST [Catalytic activity/Vol] 7 U/L Low 15-37 [facility] Lactate dehydrogenase (LDH) measurementOrdered By: Deven David on 06-15-2024 LDH [Catalytic activity/Vol] 118 U/L 84-246 [facility] Lymphocytes Auto (Unsp spec) [#/Vol]Ordered By: Deven David on 06-15-2024 Lymphocytes (Bld) [#/Vol] 4.23 10*3/uL 0.83-4.51 [facility] Lymphocytes/100 WBC Auto (Un sp spec)Ordered By: Deven David on 06-15-2024 Lymphocytes/100 WBC (Bld) 37.4 % 19-41 [facility] MCV (mean corpuscular volume ) determinationOrdered By: Deven David on 06-15-2024 MCV (RBC) [Entitic vol] 90.8 fL 81-99 [facility] Mean corpuscular hemoglobin (MCH) determinationOrdered By: Deven David on 06-15-2024 MCH (RBC) [Entitic mass] 30.2 pg 27.0-32.0 [facility] Mean corpuscular hemoglobin concentration (MCHC) determinationOrdered By: Deven David on 06-15-2024 MCHC (RBC) [Mass/Vol] 33.3 g/dL 32-36 [facility] Mean platelet volume determi nationOrdered By: Deven David on 06-15-2024 Platelet mean volume (Bld) [Entitic vol] 9.9 fL 6.2-12.0 [facility] Monocyte percentageOrdered B y: Deven David on 06-15-2024 Monocytes/100 WBC (Bld) 5.5 % 0-10 [facility] Neutrophil percentageOrdered By: Deven David on 06-15-2024 Neutrophils/100 WBC (Bld) 54.4 % 47-70 [facility] Nucleated red blood cell per centageOrdered By: Deven David on 06-15-2024 Nucleated RBC/100 WBC (Bld) [Ratio] 0 % 0-5 [facility] Platelet countOrdered By: Reta David on 06-15-2024 Platelets (Bld) [#/Vol] 393 10*3/uL 150-450 [facility] Potassium measurementOrdered By: Deven David on 06-15-2024 Potassium [Moles/Vol] 3.6 mmol/L 3.5-5.1 [facility] RBC Auto (Bld) [#/Vol]Ordere d By: Deven David on 06-15-2024 RBC (Bld) [#/Vol] 4.67 10*6/uL 4.2-5.4 [facility] Serum anion gap measurementO rdered By: Deven David on 06-15-2024 Anion gap [Moles/Vol] 2 mmol/L Low 5-15 [facility] Serum globulin measurementOr dered By: Deven David on 06-15-2024 Globulin (S) [Mass/Vol] 3.0 g/dL 2.2-4.2 [facility] Serum or plasma alanine bueno otransferase (ALT) measurementOrdered By: Deven David on 06-15-2024 ALT [Catalytic activity/Vol] 14 U/L 13-56 [facility] Serum or plasma albumin uche urement (mass/volume)Ordered By: Deven David on 06-15-2024 Albumin [Mass/Vol] 3.4 g/dL 3.2-5.0 [facility] Serum or plasma alkaline ana maría sphatase measurementOrdered By: Deven David on 06-15-2024 ALP [Catalytic activity/Vol] 82 U/L 45-117 [facility] Serum or plasma calcium uche urement (mass/volume)Ordered By: Deven David on 06-15-2024 Calcium [Mass/Vol] 9.3 mg/dL 8.5-10.1 [facility] Serum or plasma creatinine m easurement (mass/volume)Ordered By: Deven David on 06-15-2024 Creatinine [Mass/Vol] 0.61 mg/dL 0.55-1.02 [facility] Comment on above: The validity of the calculated GFR & GFRAA in patients over 70 years has not been determined. Clinical correlation is essential. Serum or plasma urea nitroge n measurement (mass/volume)Ordered By: Deven David on 06-15-2024 Urea nitrogen [Mass/Vol] 15 mg/dL 7-18 [facility] Sodium levelOrdered By: Brice David on 06-15-2024 Sodium [Moles/Vol] 135 mmol/L Low 136-145 [facility] TIBCOrdered By: Deven David on 06-15-2024 Total Iron Binding Capacity 270 ug/dL 250-450 [facility] Total proteinOrdered By: Armando David on 06-15-2024 Protein [Mass/Vol] 6.4 g/dL 6.4-8.2 [facility] Vitamin B12on 06-15-2024 Cobalamin (Vitamin B12) [Mass/Vol] 1679 pg/mL High 211-911 [facility] Comment on above: Performed By: #### L 400.0001 #### [facility] Laboratory [address] [place], [place], [address] Vitamin B12 measurementOrder ed By: Deven David on 06-15-2024 Cobalamin (Vitamin B12) [Mass/Vol] 1679 pg/mL High 211-911 [facility] White blood cell (WBC) count Ordered By: Deven David on 06-15-2024 WBC (Bld) [#/Vol] 11.3 10*3/uL High 4.4-11.0 [facility] Urgent Care Visit Reporton 0 06-06-2024 Urgent Care Visit Report [facility] [address], [address] [place], [place] [id number] OFFICE VISIT Date of Service: 06/06/24 MR#: [id number] Acct: [id number] Name: ROGERIO FRIEND Rep #: [id number] : 1970 Provider: ANA agee Age/Sex: 54/F Location: [facility] Status: Signed Intake Vital Signs 04/01/24 07:57 06/06/24 11:04 Height 5 ft 7 in 5 ft 7 in BP 120/80 Blood Pressure Location Lt brachial Position Sitting Respiration 12 Pulse 99 Pulse Source NIBP Temp 97.4 F L Temp Source Oral Pulse Oximetry (%) 99 Oxygen Delivery Method room air Intake Visit Reasons: COUGH/SINUS/SORE THROAT Chief Complaint: nausea Hand Brush Filler Required: No Accompanied by: Son Is patient in pain?: No Allergies latex Allergy (Mild, Verified 06/06/24 12:39) rash Penicillins (PCN) Allergy (Verified 06/06/24 12:39) Hives Medications ???Medication ???Instructions ???Recorded ???Confirmed ???Type metformin 500 mg tablet 1,000 mg PO BID diabetes 02/28/14 06/06/24 History clopidogrel 75 mg tablet 75 mg PO DAILY 12/14/19 06/06/24 History warfarin 5 mg tablet 7 mg PO DAILY DVT 12/14/19 06/06/24 History biotin 5,000 mcg disintegrating 10,000 mcg PO DAILY 04/03/20 06/06/24 History tablet doxepin 10 mg capsule 10 mg PO PRN PRN Sleep 12/14/20 06/06/24 History escitalopram oxalate 20 mg tablet 20 mg PO DAILY 12/14/20 06/06/24 History (Lexapro) bupropion HCl 150 mg tablet,12 hr 150 mg PO BID 07/05/22 06/06/24 History sustained-release valsartan 160 mg tablet 160 mg PO DAILY 07/05/22 06/06/24 History dapagliflozin propanediol 10 mg 10 mg PO DAILY 05/15/23 06/06/24 History tablet (Farxiga) pioglitazone 30 mg tablet 30 mg PO DAILY Diabetes 05/15/23 06/06/24 History ondansetron 4 mg disintegrating 4 mg PO Q8H PRN PRN Nausea #10 tabs 06/26/23 06/06/24 Rx tablet polysaccharide iron complex 150 mg 150 mg PO BID #180 caps 02/19/24 06/06/24 Rx iron capsule (Ferrex) glimepiride 4 mg tablet 4 mg PO BID 04/21/24 06/06/24 History insulin glargine U-300 conc 300 30 unit subcut QHS 04/21/24 06/06/24 History unit/mL (3 mL) subcutaneous pen (Toujeo Max U-300 SoloStar) nicotine 14 mg/24 hr daily 1 patch transdermal Q24H 04/21/24 06/06/24 History transdermal patch prochlorperazine maleate 10 mg 10 mg PO TID PRN nausea 04/21/24 06/06/24 History capsule,extended release rosuvastatin 40 mg tablet 40 mg PO QDAY 04/21/24 06/06/24 History venlafaxine 150 mg 150 mg PO QDAY 04/21/24 06/06/24 History capsule,extended release 24 hr vonoprazan 20 mg tablet (Voquezna) 20 mg PO QDAY 04/21/24 06/06/24 History linaclotide 145 mcg capsule 145 mcg PO QAM #30 caps 05/10/24 06/06/24 Rx (Linzess) doxycycline hyclate 100 mg capsule 100 mg PO BID 7 days #14 caps 06/06/24 06/06/24 Rx Is last menstrual period known: No Post menopausal: Yes Patient : No Have you fallen in the past year?: No PFSH Medical History (Updated 06/06/24 @ 13:00 by Carlo Burnett REGENERATION OPERATOR, REGENERATION OPERATOR-C) Hx of colonic polyp URI (upper respiratory infection) Contact with or exposure to other viral diseases Multifocal pneumonia Sleep apnea History of kidney stones Migraine headache Wears dentures Wears glasses Bruising Depression Anxiety DVT (deep venous thrombosis) Easy bruising Excessive bleeding Injury of head and neck Gastric reflux Smoker Chronic cough Leg cramps History of echocardiogram Contraceptive management Menorrhagia with irregular cycle 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 Leukocytosis Diabetes mellitus Surgical History Status post endometrial ablation History of esophagogastroduodenoscop y (EGD) Hx of partial nephrectomy History of embolectomy H/O tubal ligation Hx of cholecystectomy H/O lithotripsy Family History Brother Diabetes Father Diabetes Mother Diabetes Uncle Diabetes Skin cancer Colon cancer Uncle Diabetes Aunt Breast cancer Social History (Updated 05/10/24 @ 11:15 by Whitney Hou) household members: family current occupational status: employed current occupation: [employer] history of recent travel: No sexually active: No Smoking Status: Current every day smoker tobacco type: cigarettes alcohol intake: current alcohol intake frequency: holidays/special occasions only substance use type: does not use what type of physical activity do you participate in: other seatbelt use: always do you feel safe at home: Yes additional social history: single HPI HPI Chief Complaint: nausea Details: ROGERIO FRIEND, is a 54 F who presents to the office today for cough, sore throat, and congestion x1 week. She feels achy and (more content not included)... Normal [facility] Absolute neutrophil countOrd ered By: Shashank Tai on 05-20-2024 Neutrophils (Bld) [#/Vol] 5.5 10*3/uL 2.0-7.7 [facility] Albumin to globulin ratioOrd ered By: Shashank Tai on 05-20-2024 Albumin/Globulin [Mass ratio] 1.0 {ratio} 0.9-2.4 [facility] Basophil percentageOrdered B y: Shashank Tai on 05-20-2024 Basophils/100 WBC (Bld) 1.3 % High 0-1 [facility] Bilirubin, totalOrdered By: Shashank Tai on 05-20-2024 Bilirubin [Mass/Vol] 0.40 mg/dL 0.20-1.00 [facility] Comment on above: For patients on eltr ombopag therapy, use of Dimension Matthews TBIL is not recommended. Blood urea nitrogen (BUN)/cr eatinine ratioOrdered By: Shashank Tai on 05-20-2024 Urea nitrogen/Creatinine [Mass ratio] 27.4 mg/mg High - [facility] CBC W/Diff, Automatedon 05-02 Absolute Lymph 3.34 X10 3/uL Normal 0.83-4.51 [facility] Comment on above: Performed By: #### L [id number] #### [facility] Laboratory [address] [place], [address] Absolute Neut 5.5 X10 3/uL Normal 2.0-7.7 [facility] Comment on above: Performed By: #### [id number] #### [facility] Laboratory [address] [place], [address] Basophils/100 WBC (Bld) 1.3 % High 0-1 [facility] Comment on above: Performed By: #### L [id number] #### [facility] Laboratory [address] [place], [address] Eosinophils/100 WBC (Bld) 2.2 % Normal 0-5 [facility] Comment on above: Performed By: #### L [id number] #### [facility] Laboratory [address] [place], [address] Erythrocyte distribution width (RBC) [Ratio] 13.7 % Normal 11.6-14.6 [facility] Comment on above: Performed By: #### L [id number] #### [facility] Laboratory [address] [place], [address] Hematocrit (Bld) [Volume fraction] 44.3 % Normal 37-47 [facility] Comment on above: Performed By: #### L [id number] #### [facility] [address] [place], [address] Hemoglobin (Bld) [Mass/Vol] 14.7 g/dL Normal 12.0-15.0 [facility] Comment on above: Performed By: #### L [id number] #### [facility] [address], [address] IG% 0.600 Normal 0.0-0.9 [facility] Comment on above: Result Comment: IG% - Immature Granulocytes (promyelocytes, myelocytes and metamyelocytes) > 1% indicates that a LEFT SHIFT is Present. Performed By: #### L [id number] #### [facility] [address] [place], [address] Lymphocytes/100 WBC (Bld) 33.7 % Normal 19-41 [facility] Comment on above: Performed By: #### [id number] #### [facility] [address] [place], [address] MCH (RBC) [Entitic mass] 30.8 pg Normal 27.0-32.0 [facility] Comment on above: Performed By: #### [id number] #### [facility] [address] [place], [address] MCHC (RBC) [Mass/Vol] 33.2 g/dL Normal 32-36 [facility] Comment on above: Performed By: #### L [id number] #### [facility] [address] [place], [address] MCV (RBC) [Entitic vol] 92.9 fL Normal 81-99 [facility] Comment on above: Performed By: #### L [id number] #### [facility] [address] [place], [address] Monocytes/100 WBC (Bld) 6.9 % Normal 0-10 [facility] Comment on above: Performed By: #### L [id number] #### [facility] [address] [place], [address] Neutrophils/100 WBC (Bld) 55.3 % Normal 47-70 [facility] Comment on above: Performed By: #### L [id number] #### [facility] [address] [place], [address] Nucleated RBC (Bld) [#/Vol] 0 10*3/uL Normal 0-5 [facility] Comment on above: Performed By: #### L [id number] #### [facility] [address] [place], [address] Platelet mean volume (Bld) [Entitic vol] 9.8 fL Normal 6.2-12.0 [facility] Comment on above: Performed By: #### L [id number] #### [facility] [address] [place], [address] Platelets (Bld) [#/Vol] 398 10*3/uL Normal 150-450 [facility] Comment on above: Performed By: #### L [id number] #### [facility] [address] [place], [address] RBC (Bld) [#/Vol] 4.77 10*6/uL Normal 4.2-5.4 [facility] Comment on above: Performed By: #### L [id number] #### [facility] [address] [place], [address] RDW SD 47.2 fl High 35.1-43.9 [facility] Comment on above: Performed By: #### L [id number] #### [facility] Laboratory [address] [place], [address] WBC (Bld) [#/Vol] 9.9 10*3/uL Normal 4.4-11.0 [facility] Comment on above: Performed By: #### L [id number] #### [facility] [address] [place], [address] Carbon dioxide measurementOr dered By: Shashank Tai on 05-20-2024 CO2 [Moles/Vol] 29.0 mmol/L 21.0-32.0 [facility] Chloride measurementOrdered By: Shashank Tai on 05-20-2024 Chloride [Moles/Vol] 107 mmol/L 98-107 [facility] Comprehensive Metabolic Prof ilon 05-20-2024 Albumin [Mass/Vol] 3.4 g/dL Normal 3.2-5.0 [facility] Comment on above: Performed By: #### L [id number] #### [facility] Laboratory [address] [place], [address] Albumin/Globulin [Mass ratio] 1.0 {ratio} Normal 0.9-2.4 [facility] Comment on above: Performed By: #### L [id number] #### [facility] [address] [place], [address] ALK P 79 U/L Normal 45-117 [facility] Comment on above: Performed By: #### L [id number] #### [facility] [address] [place], [address] ALT [Catalytic activity/Vol] 16 U/L Normal 13-56 [facility] Comment on above: Performed By: #### L [id number] #### [facility] [address] [place], [address] AST [Catalytic activity/Vol] 14 U/L Low 15-37 [facility] Comment on above: Performed By: #### L [id number] #### [facility] [address] [place], [address] Bilirubin [Mass/Vol] 0.40 mg/dL Normal 0.20-1.00 [facility] Comment on above: Result Comment: For patients on eltrombopag therapy, use of Dimension Matthews TBIL is not recommended. Performed By: #### L [id number] #### [facility] [address] [place], [address] BUN/CRE 27.4 RATIO High 10-20 [facility] Comment on above: Performed By: #### L [id number] #### [facility] [address] [place], [address] CA,Total 9.5 mg/dL Normal 8.5-10.1 [facility] Comment on above: Performed By: #### L [id number] #### [facility] [address] [place], [address] Chloride [Moles/Vol] 107 mmol/L Normal 98-107 [facility] Comment on above: Performed By: #### L [id number] #### [facility] [address] [place], [address] CO2 [Moles/Vol] 29.0 mmol/L Normal 21.0-32.0 [facility] Comment on above: Performed By: #### L [id number] #### [facility] [address] [place], [address] Creatinine [Mass/Vol] 0.69 mg/dL Normal 0.55-1.02 [facility] Comment on above: Result Comment: The validity of the calculated GFR GFRAA in patients over 70 years has not been determined. Clinical correlation is essential. Performed By: #### L [id number] #### [facility] [address] [place], [address] EST GFR - AA 113 mL/min Normal >60 [facility] Comment on above: Result Comment: Afri can Cymraes GFR Calc Performed By: #### L [id number] #### [facility] [address] [place], [address] GAP 2 Low 5-15 [facility] Comment on above: Performed By: #### L [id number] #### [facility] [address] [place], [address] GFR/1.73 sq M.predicted among non-blacks MDRD (S/P/Bld) [Vol rate/Area] 94 mL/min/{1.73_m2} Normal >60 [facility] Comment on above: Result Comment: Non- GFR Calc Performed By: #### L [id number] #### [facility] [address] [place], [address] Globulin (S) [Mass/Vol] 3.3 g/dL Normal 2.2-4.2 [facility] Comment on above: Performed By: #### L [id number] #### [facility] [address] [place], [address] Glucose [Mass/Vol] 174 mg/dL High 74-106 [facility] Comment on above: Result Comment: Fast ing Glucose result greater than or equal to 126 mg/dL suggests DIABETES MELLITUS per A.D.A. criteria. Performed By: #### L [id number] #### [facility] [address] [place], [address] Potassium [Moles/Vol] 4.0 mmol/L Normal 3.5-5.1 [facility] Comment on above: Performed By: #### L [id number] #### [facility] [address] [place], [place], [address] Sodium [Moles/Vol] 138 mmol/L Normal 136-145 [facility] Comment on above: Performed By: #### L [id number] #### [facility] [address] [place], [place], [address] T PROT 6.7 g/dL Normal 6.4-8.2 [facility] Comment on above: Performed By: #### L [id number] #### [facility] [address] [place], [place], [address] Urea nitrogen [Mass/Vol] 19 mg/dL High 7-18 [facility] Comment on above: Performed By: #### L [id number] #### [facility] [address] [place], [place], [address] Eosinophil percentageOrdered By: Shashank Tai on 05-20-2024 Eosinophils/100 WBC (Bld) 2.2 % 0-5 [facility] Erythrocyte distribution wid th ratioOrdered By: Shashank Tai on 05-20-2024 Erythrocyte distribution width (RBC) [Ratio] 13.7 % 11.6-14.6 [facility] Erythrocyte distribution wid th standard deviationOrdered By: Shashank Tai on 05-20-2024 Erythrocyte distribution width (RBC) [Entitic vol] 47.2 fL High 35.1-43.9 [facility] Estimated glomerular filtrat ion rate (GFR) AmericanOrdered By: Shashank Tai on 05-20-2024 Estimated GFR (MDRD) Amer 113 mL/min >60 [facility] Comment on above: GFR Calc Glomerular filtration rate ( GFR) estimationOrdered By: Shashank Tai on 05-20-2024 Estimated GFR (MDRD) Non-Af Amer 94 mL/min >60 [facility] Comment on above: Non- GFR Calc Glucose measurementOrdered B y: Shashank Tai on 05-20-2024 Glucose [Mass/Vol] 174 mg/dL High 74-106 [facility] Comment on above: Fasting Glucose resu lt greater than or equal to 126 mg/dL suggests DIABETES MELLITUS per A.D.A. criteria. Hematocrit Auto (Bld) [Volum e fraction]Ordered By: Shashank Tai on 05-20-2024 Hematocrit (Bld) [Volume fraction] 44.3 % 37-47 [facility] Hemoglobin measurementOrdere d By: Shashank Zaire on 05-20-2024 Hemoglobin (Bld) [Mass/Vol] 14.7 g/dL 12.0-15.0 [facility] Immature granulocytes/100 WB C Auto (Bld)Ordered By: Shashank Zaire on 05-20-2024 Immature granulocytes/100 WBC (Bld) 0.600 % 0.0-0.9 [facility] Comment on above: IG% - Immature Granu locytes (promyelocytes, myelocytes and metamyelocytes) > 1% indicates that a LEFT SHIFT is Present. Laboratory - Chemistry and C hemistry - challengeOrdered By: Shashank Zaire on 05-20-2024 AST [Catalytic activity/Vol] 14 U/L Low 15-37 [facility] Lymphocytes Auto (Unsp spec) [#/Vol]Ordered By: Shashank Tai on 05-20-2024 Lymphocytes (Bld) [#/Vol] 3.34 10*3/uL 0.83-4.51 [facility] Lymphocytes/100 WBC Auto (Un sp spec)Ordered By: Shashank Tai 05-20-2024 Lymphocytes/100 WBC (Bld) 33.7 % 19-41 [facility] MCV (mean corpuscular volume ) determinationOrdered By: Shashank Zaire 05-20-2024 MCV (RBC) [Entitic vol] 92.9 fL 81-99 [facility] Mean corpuscular hemoglobin (MCH) determinationOrdered By: Shashank Tai 05-20-2024 MCH (RBC) [Entitic mass] 30.8 pg 27.0-32.0 [facility] Mean corpuscular hemoglobin concentration (MCHC) determinationOrdered By: Shashank Tai 05-20-2024 MCHC (RBC) [Mass/Vol] 33.2 g/dL 32-36 [facility] Mean platelet volume determi nationOrdered By: Shashank Tai on 05-20-2024 Platelet mean volume (Bld) [Entitic vol] 9.8 fL 6.2-12.0 [facility] Monocyte percentageOrdered B y: Shashank Tai on 05-20-2024 Monocytes/100 WBC (Bld) 6.9 % 0-10 [facility] Neutrophil percentageOrdered By: Shashank Tai on 05-20-2024 Neutrophils/100 WBC (Bld) 55.3 % 47-70 [facility] Nucleated red blood cell per centageOrdered By: Shashank Tai on 05-20-2024 Nucleated RBC/100 WBC (Bld) [Ratio] 0 % 0-5 [facility] Platelet countOrdered By: Star Tai on 05-20-2024 Platelets (Bld) [#/Vol] 398 10*3/uL 150-450 [facility] Potassium measurementOrdered By: Shashank Tai on 05-20-2024 Potassium [Moles/Vol] 4.0 mmol/L 3.5-5.1 [facility] RBC Auto (Bld) [#/Vol]Ordere d By: Shashank Tai on 05-20-2024 RBC (Bld) [#/Vol] 4.77 10*6/uL 4.2-5.4 [facility] Serum anion gap measurementO rdered By: Shashank Tai on 05-20-2024 Anion gap [Moles/Vol] 2 mmol/L Low 5-15 [facility] Serum globulin measurementOr dered By: Shashank Tai on 05-20-2024 Globulin (S) [Mass/Vol] 3.3 g/dL 2.2-4.2 [facility] Serum or plasma alanine bueno otransferase (ALT) measurementOrdered By: Shashank Tai 05-20-2024 ALT [Catalytic activity/Vol] 16 U/L 13-56 [facility] Serum or plasma albumin uche urement (mass/volume)Ordered By: Shashank Tai on 05-20-2024 Albumin [Mass/Vol] 3.4 g/dL 3.2-5.0 [facility] Serum or plasma alkaline ana maría sphatase measurementOrdered By: Shashank Tai on 05-20-2024 ALP [Catalytic activity/Vol] 79 U/L 45-117 [facility] Serum or plasma calcium uche urement (mass/volume)Ordered By: hSashank Tai on 05-20-2024 Calcium [Mass/Vol] 9.5 mg/dL 8.5-10.1 [facility] Serum or plasma creatinine m easurement (mass/volume)Ordered By: Shashank Tai on 05-20-2024 Creatinine [Mass/Vol] 0.69 mg/dL 0.55-1.02 [facility] Comment on above: The validity of the calculated GFR & GFRAA in patients over 70 years has not been determined. Clinical correlation is essential. Serum or plasma urea nitroge n measurement (mass/volume)Ordered By: Shashank Tai on 05-20-2024 Urea nitrogen [Mass/Vol] 19 mg/dL High 7-18 [facility] Sodium levelOrdered By: Shashank Tai on 05-20-2024 Sodium [Moles/Vol] 138 mmol/L 136-145 [facility] TSH QnOrdered By: Shashank Tai o n 05-20-2024 Thyroid Stimulating Hormone (TSH) 2.000 uIU/mL 0.358-3.740 [facility] Thyroid Stim Hormone (TSH)on 05-20-2024 TSH 2.000 uIU/mL Normal 0.358-3.740 [facility] Comment on above: Performed By: #### L 400.0001 #### [facility] Laboratory [address] [place], [address] Total proteinOrdered By: Sahshank Tai on 05-20-2024 Protein [Mass/Vol] 6.7 g/dL 6.4-8.2 [facility] White blood cell (WBC) count Ordered By: Shashank Tai on 05-20-2024 WBC (Bld) [#/Vol] 9.9 10*3/uL 4.4-11.0 [facility] Gastroenterology Visit Repor ton 05-10-2024 Gastroenterology Visit Report [facility] Gastroenterology [address] [place] [address] OFFICE VISIT Date of Service: 05/10/24 MR#: [id number] Acct: [id number] Name: ROGERIO FRIEND Rep #: [id number] : 1970 Provider: ANA ladd Age/Sex: 53/F Location: [facility] Status: Signed Intake Vital Signs 04/01/24 07:57 05/10/24 11:17 Height 5 ft 7 in Weight: 185 lb 6 oz BP 116/79 Respiration 16 Pulse 77 Pulse Oximetry (%) 94 Oxygen Delivery Method room air Intake Visit Reasons: Nausea/vomiting Chief Complaint: nausea Allergies latex Allergy (Mild, Verified 05/10/24 11:09) rash Penicillins (PCN) Allergy (Verified 05/10/24 11:09) Hives Medications ???Medication ???Instructions ???Recorded ???Confirmed ???Type metformin 500 mg tablet 1,000 mg PO BID diabetes 02/28/14 05/10/24 History clopidogrel 75 mg tablet 75 mg PO DAILY 12/14/19 05/10/24 History warfarin 5 mg tablet 7 mg PO DAILY DVT 12/14/19 05/10/24 History biotin 5,000 mcg disintegrating 10,000 mcg PO DAILY 04/03/20 05/10/24 History tablet doxepin 10 mg capsule 10 mg PO PRN PRN Sleep 12/14/20 05/10/24 History escitalopram oxalate 20 mg tablet 20 mg PO DAILY 12/14/20 05/10/24 History (Lexapro) bupropion HCl 150 mg tablet,12 hr 150 mg PO BID 07/05/22 05/10/24 History sustained-release valsartan 160 mg tablet 160 mg PO DAILY 07/05/22 05/10/24 History sennosides 8.6 mg-docusate sodium 1 tab PO BID PRN Constipation 11/25/22 05/10/24 History 50 mg tablet (Senexon-S) dapagliflozin propanediol 10 mg 10 mg PO DAILY 05/15/23 05/10/24 History tablet (Farxiga) pioglitazone 30 mg tablet 30 mg PO DAILY Diabetes 05/15/23 05/10/24 History ondansetron 4 mg disintegrating 4 mg PO Q8H PRN PRN Nausea #10 tabs 06/26/23 05/10/24 Rx tablet polysaccharide iron complex 150 mg 150 mg PO BID #180 caps 02/19/24 05/10/24 Rx iron capsule (Ferrex) glimepiride 4 mg tablet 4 mg PO BID 04/21/24 05/10/24 History insulin glargine U-300 conc 300 30 unit subcut QHS 04/21/24 05/10/24 History unit/mL (3 mL) subcutaneous pen (Toujeo Max U-300 SoloStar) nicotine 14 mg/24 hr daily 1 patch transdermal Q24H 04/21/24 05/10/24 History transdermal patch prochlorperazine maleate 10 mg 10 mg PO TID PRN nausea 04/21/24 05/10/24 History capsule,extended release rosuvastatin 40 mg tablet 40 mg PO QDAY 04/21/24 05/10/24 History venlafaxine 150 mg 150 mg PO QDAY 04/21/24 05/10/24 History capsule,extended release 24 hr vonoprazan 20 mg tablet (Voquezna) 20 mg PO QDAY 04/21/24 05/10/24 History Have you fallen in the past year?: No Nurse's Note: Has had nausea and vomiting for most of the year. Denies blood. Has constipation, has a bowel movement sometimes a week apart. Stool is hard at times but not always. Had a colonoscopy by Dr. Marx many years ago. Had EGD earlier this year. 10 pain last week, today is 4/10. [facility] Medical History (Updated 05/10/24 @ 13:27 by ANA Hernandez) Hx of colonic polyp URI (upper respiratory infection) Contact with or exposure to other viral diseases Multifocal pneumonia Sleep apnea History of kidney stones Migraine headache Wears dentures Wears glasses Bruising Depression Anxiety DVT (deep venous thrombosis) Easy bruising Excessive bleeding Injury of head and neck Gastric reflux Smoker Chronic cough Leg cramps History of echocardiogram Contraceptive management Menorrhagia with irregular cycle 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 Leukocytosis Diabetes mellitus Surgical History Status post endometrial ablation History of esophagogastroduodenoscop y (EGD) Hx of partial nephrectomy History of embolectomy H/O tubal ligation Hx of cholecystectomy H/O lithotripsy Family History Brother Diabetes Father Diabetes Mother Diabetes Uncle Diabetes Skin cancer Colon cancer Uncle Diabetes Aunt Breast cancer Social History (Updated 05/10/24 @ 11:15 by Whitney Hou) household members: family current occupational status: employed current occupation: [employer] history of recent travel: No sexually active: No Smoking Status: Current every day smoker tobacco type: cigarettes alcohol intake: current alcohol intake frequency: holidays/special occasions only substance use type: does not use what type of physical activity do you participate in: other seatbelt use: always do you feel safe at home: Yes additional social history: single HPI HPI Chief Complaint: nausea Details: 53y/o female presents for consultation with complaints of N/V. 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 Normal [facility] Abdomen/Pelvis WITH Contrast on 04-08-2024 Abdomen/Pelvis WITH Contrast [facility] Imaging Services [address] [place] [address] [id number] Abdomen/Pelvis WITH Contrast MR#: [id number] Acct: [id number] Name: ROGERIO FRIEND Rep #: [id number] : 1970 F 53 From: Obi Parker MD PCP: Dr. Shashank Tai MD Status: [facility] Study: Abdomen/Pelvis WITH Contrast Date of Exam: 12/23 Exam# [id number] Ordering Dr: Shashank Tai MD [id number] EXAM: CT ABDOMEN AND PELVIS WITH INTRAVENOUS CONTRAST CLINICAL INDICATION: ABD PAIN TECHNIQUE: Helically acquired images were obtained of the abdomen and pelvis with intravenous contrast. This CT exam was performed using one or more of the following dose reduction techniques: automated exposure control, adjustment of the mA and/or kV according to patient size, and/or use of iterative reconstruction technique. CONTRAST: Oral and amp; IV Gastrografin and amp; 100mL Isovue-300 COMPARISON: CT Abdomen Pelvis dated 05/15/2023 FINDINGS: LOWER THORAX: Normal. Lung bases are clear. No cardiomegaly. No pericardial effusion. ABDOMEN: LIVER: Normal. Homogeneous. No focal mass. GALLBLADDER AND BILE DUCTS: Cholecystectomy clips are in place. No intra- or extrahepatic biliary ductal dilation. PANCREAS: Normal. No focal cystic or solid mass. SPLEEN: Normal. Normal size without focal cystic or solid mass. ADRENALS: Normal. No nodules. KIDNEYS AND URETERS: Cortical scarring of the left kidney again noted. No hydronephrosis. STOMACH AND BOWEL: Normal. No bowel distention. No focal inflammatory change. PELVIS: APPENDIX: Appendix is visualized and normal in appearance. BLADDER: Normal. REPRODUCTIVE: Unremarkable as visualized. No mass. ABDOMEN and PELVIS: INTRAPERITONEAL SPACE: Normal. No ascites or other fluid collection. No free air. BONES/JOINTS: No suspicious lytic or blastic abnormality. SOFT TISSUES: Normal. No discrete abdominal or pelvic wall hernia. VASCULATURE: Normal. Abdominal aorta is non-dilated. LYMPH NODES: Normal. No enlarged lymph nodes. CT/Abdomen/Pelvis WITH Contrast IMPRESSION: No acute abdominal or pelvic abnormality.. Electronically Signed: Obi Parker MD at 15:38 EST Reading Location ID and State: [address] [place] [address] Tel , Service support , CC: Dr. Shashank Tai MD Outreach Professional: Signed Normal [facility] Amylaseon 04-08-2024 KEON 13 U/L Low 25-115 [facility] Comment on above: Performed By: #### L 500.4050, L100.0100, L501.9520 #### [facility] Laboratory [address] [place], [address] CBC W/Diff, Automatedon Absolute Lymph 2.96 X10 3/uL Normal 0.83-4.51 [facility] Comment on above: Performed By: #### L 500.4050, L100.0100, L501.9520 #### [facility] Laboratory [address] [place], [address] Absolute Neut 7.8 X10 3/uL High 2.0-7.7 [facility] Comment on above: Performed By: #### L 500.4050, L100.0100, L501.9520 #### [facility] Laboratory [address] [place], [address] Basophils/100 WBC (Bld) 0.9 % Normal 0-1 [facility] Comment on above: Performed By: #### L 500.4050, L100.0100, L501.9520 #### [facility] Laboratory [address] [place], [address] Eosinophils/100 WBC (Bld) 1.8 % Normal 0-5 [facility] Comment on above: Performed By: #### L 500.4050, L100.0100, L501.9520 #### [facility] Laboratory [address] [place], [address] Erythrocyte distribution width (RBC) [Ratio] 13.2 % Normal 11.6-14.6 [facility] Comment on above: Performed By: #### L 500.4050, L100.0100, L501.9520 #### [facility] Laboratory [address] [place], [address] Hematocrit (Bld) [Volume fraction] 48.7 % High 37-47 [facility] Comment on above: Performed By: #### L 500.4050, L100.0100, L501.9520 #### [facility] Laboratory [address] [place], [address] Hemoglobin (Bld) [Mass/Vol] 16.2 g/dL High 12.0-15.0 [facility] Comment on above: Performed By: #### L 500.4050, L100.0100, L501.9520 #### [facility] Laboratory [address] [place], [address] IG% 1.000 High 0.0-0.9 [facility] Comment on above: Result Comment: IG% - Immature Granulocytes (promyelocytes, myelocytes and metamyelocytes) > 1% indicates that a LEFT SHIFT is Present. Performed By: #### L 500.4050, L100.0100, L501.9520 #### [facility] Laboratory [address] [place], [address] Lymphocytes/100 WBC (Bld) 24.5 % Normal 19-41 [facility] Comment on above: Performed By: #### L 500.4050, L100.0100, L501.9520 #### [facility] Laboratory [address] [place], [address] MCH (RBC) [Entitic mass] 30.3 pg Normal 27.0-32.0 [facility] Comment on above: Performed By: #### L 500.4050, L100.0100, L501.9520 #### [facility] Laboratory [address] [place], [address] MCHC (RBC) [Mass/Vol] 33.3 g/dL Normal 32-36 [facility] Comment on above: Performed By: #### L 500.4050, L100.0100, L501.9520 #### [facility] Laboratory [address] [place], [address] MCV (RBC) [Entitic vol] 91.0 fL Normal 81-99 [facility] Comment on above: Performed By: #### L 500.4050, L100.0100, L501.9520 #### [facility] Laboratory [address] [place], [address] Monocytes/100 WBC (Bld) 7.1 % Normal 0-10 [facility] Comment on above: Performed By: #### L 500.4050, L100.0100, L501.9520 #### [facility] Laboratory [address] [place], [address] Neutrophils/100 WBC (Bld) 64.7 % Normal 47-70 [facility] Comment on above: Performed By: #### L 500.4050, L100.0100, L501.9520 #### [facility] Laboratory [address] [place], [address] Nucleated RBC (Bld) [#/Vol] 0 10*3/uL Normal 0-5 [facility] Comment on above: Performed By: #### L 500.4050, L100.0100, L501.9520 #### [facility] Laboratory [address] [place], [address] Platelet mean volume (Bld) [Entitic vol] 9.7 fL Normal 6.2-12.0 [facility] Comment on above: Performed By: #### L 500.4050, L100.0100, L501.9520 #### [facility] Laboratory [address] [place], [address] Platelets (Bld) [#/Vol] 571 10*3/uL High 150-450 [facility] Comment on above: Performed By: #### L 500.4050, L100.0100, L501.9520 #### [facility] Laboratory [address] [place], [address] RBC (Bld) [#/Vol] 5.35 10*6/uL Normal 4.2-5.4 [facility] Comment on above: Performed By: #### L 500.4050, L100.0100, L501.9520 #### [facility] Laboratory [address] [place], [address] RDW SD 44.2 fl High 35.1-43.9 [facility] Comment on above: Performed By: #### L 500.4050, L100.0100, L501.9520 #### [facility] Laboratory [address] [place], [address] WBC (Bld) [#/Vol] 12.1 10*3/uL High 4.4-11.0 [facility] Comment on above: Performed By: #### L 500.4050, L100.0100, L501.9520 #### [facility] Laboratory [address] [place], [address] Comprehensive Metabolic Prof ilon 04-08-2024 Albumin [Mass/Vol] 3.7 g/dL Normal 3.2-5.0 [facility] Comment on above: Performed By: #### L 500.4050, L100.0100, L501.9520 #### [facility] Laboratory [address] [place], [address] Albumin/Globulin [Mass ratio] 1.0 {ratio} Normal 0.9-2.4 [facility] Comment on above: Performed By: #### L 500.4050, L100.0100, L501.9520 #### [facility] Laboratory [address] [place], [address] ALK P 103 U/L Normal 45-117 [facility] Comment on above: Performed By: #### L 500.4050, L100.0100, L501.9520 #### [facility] Laboratory [address] [place], [address] ALT [Catalytic activity/Vol] 14 U/L Normal 13-56 [facility] Comment on above: Performed By: #### L 500.4050, L100.0100, L501.9520 #### [facility] Laboratory [address] [place], [address] AST [Catalytic activity/Vol] 17 U/L Normal 15-37 [facility] Comment on above: Result Comment: Slig ht Hemolysis, Result may be falsely increased. Performed By: #### L 500.4050, L100.0100, L501.9520 #### [facility] Laboratory [address] [place], [address] Bilirubin [Mass/Vol] 0.30 mg/dL Normal 0.20-1.00 [facility] Comment on above: Result Comment: For patients on eltrombopag therapy, use of Dimension Matthews TBIL is not recommended. Performed By: #### L 500.4050, L100.0100, L501.9520 #### [facility] Laboratory [address] [place], [address] BUN/CRE 29.3 RATIO High 10-20 [facility] Comment on above: Performed By: #### L 500.4050, L100.0100, L501.9520 #### [facility] Laboratory [address] [place], [address] CA,Total 10.0 mg/dL Normal 8.5-10.1 [facility] Comment on above: Performed By: #### L 500.4050, L100.0100, L501.9520 #### [facility] Laboratory [address] [place], [address] Chloride [Moles/Vol] 103 mmol/L Normal 98-107 [facility] Comment on above: Performed By: #### L 500.4050, L100.0100, L501.9520 #### [facility] Laboratory [address] [place], [address] CO2 [Moles/Vol] 27.0 mmol/L Normal 21.0-32.0 [facility] Comment on above: Performed By: #### L 500.4050, L100.0100, L501.9520 #### [facility] Laboratory [address] [place], [address] Creatinine [Mass/Vol] 0.85 mg/dL Normal 0.55-1.02 [facility] Comment on above: Result Comment: The validity of the calculated GFR GFRAA in patients over 70 years has not been determined. Clinical correlation is essential. Performed By: #### L 500.4050, L100.0100, L501.9520 #### [facility] Laboratory [address] [place], [address] EST GFR - AA 89 mL/min Normal >60 [facility] Comment on above: Result Comment: Afri can Cymraes GFR Calc Performed By: #### L 500.4050, L100.0100, L501.9520 #### [facility] Laboratory [address] [place], [address] GAP 6 Normal 5-15 [facility] Comment on above: Performed By: #### L 500.4050, L100.0100, L501.9520 #### [facility] Laboratory [address] [place], [address] GFR/1.73 sq M.predicted among non-blacks MDRD (S/P/Bld) [Vol rate/Area] 74 mL/min/{1.73_m2} Normal >60 [facility] Comment on above: Result Comment: Non- GFR Calc Performed By: #### L 500.4050, L100.0100, L501.9520 #### [facility] Laboratory [address] [place], [address] Globulin (S) [Mass/Vol] 3.8 g/dL Normal 2.2-4.2 [facility] Comment on above: Performed By: #### L 500.4050, L100.0100, L501.9520 #### [facility] Laboratory [address] [place], [address] Glucose [Mass/Vol] 131 mg/dL High 74-106 [facility] Comment on above: Result Comment: Fast ing Glucose result greater than or equal to 126 mg/dL suggests DIABETES MELLITUS per A.D.A. criteria. Performed By: #### L 500.4050, L100.0100, L501.9520 #### [facility] Laboratory [address] [place], [address] Potassium [Moles/Vol] 4.2 mmol/L Normal 3.5-5.1 [facility] Comment on above: Result Comment: Slig ht Hemolysis, Result may be falsely increased. Performed By: #### L 500.4050, L100.0100, L501.9520 #### [facility] [address] [place], [address] Sodium [Moles/Vol] 136 mmol/L Normal 136-145 [facility] Comment on above: Performed By: #### L 500.4050, L100.0100, L501.9520 #### [facility] Laboratory [address] [place], [address] T PROT 7.5 g/dL Normal 6.4-8.2 [facility] Comment on above: Performed By: #### L 500.4050, L100.0100, L501.9520 #### [facility] Laboratory [address] [place], [address] Urea nitrogen [Mass/Vol] 25 mg/dL High 7-18 [facility] Comment on above: Performed By: #### L 500.4050, L100.0100, L501.9520 #### [facility] Laboratory [address] [place], [address] Hemoglobin A1con 04-08-2024 HbA1c (Bld) [Mass fraction] 8.2 % High 3.8-5.6 [facility] Comment on above: Result Comment: Norm al < 5.7 % Prediabetic 5.7 - 6.4 % Diabetic >or= 6.5 % Please note range changes. Performed By: #### L 500.4050, L100.0100, L501.9520 #### [facility] [address] [place], [address] Lipaseon 04-08-2024 Lipase [Catalytic activity/Vol] 20 U/L Normal 13-75 [facility] Comment on above: Result Comment: Plea note: LIPASE revised reference range effective 22. New Lipase methodology. Expected to produce lower values than the previous assay method. NEW Reference Range: 13 - 75 U/L Performed By: #### L 500.4050, L100.0100, L501.9520 #### [facility] [address] [place], [address] Urine Cultureon 04-03-2024 URC Positive Normal [facility] Comment on above: Performed By: #### L 3890.6202, L3100.0460, L3890.6102, L3100.0300, L3890.6301 #### [facility] [address] [place], [address] URC Escherichia coli [place] Count >100,000 Escherichia coli: REACTION Ampicillin Islt AYUSH <=2 Ampicillin+Sulbac Islt AYUSH <=2 S ceFAZolin Islt AYUSH <=4 S Cefepime Islt AYUSH <=0.12 S cefTRIAXone Islt AYUSH <=0.25 S Ciprofloxacin Islt AYUSH <=0.25 S B-Lactamase Extended Susc Islt NEG Gentamicin Islt AYUSH <=1 S Imipenem Islt AYUSH <=0.25 S levoFLOXacin Islt AYUSH <=0.12 S Nitrofurantoin Islt AYUSH <=16 S Pip+Tazo Islt AYUSH <=4 S Tobramycin Islt AYUSH <=1 S TMP SMX Islt AYUSH <=20 S Normal [facility] Comment on above: Performed By: #### L 3890.6202, L3100.0460, L3890.6102, L3100.0300, L3890.6301 #### [facility] [address] [place], [address] Basic Metabolic Profile (BMP )on 04-01-2024 BUN/CRE 22.6 RATIO High 03-21 [facility] Comment on above: Performed By: #### L 3890.6202, L3100.0460, L3890.6102, L3100.0300, L3890.6301 #### [facility] [address] [place], [address] CA,Total 9.5 mg/dL Normal 8.5-10.1 [facility] Comment on above: Performed By: #### L 3890.6202, L3100.0460, L3890.6102, L3100.0300, L3890.6301 #### [facility] [address] [place], [address] Chloride [Moles/Vol] 103 mmol/L Normal 98-107 [facility] Comment on above: Performed By: #### L 3890.6202, L3100.0460, L3890.6102, L3100.0300, L3890.6301 #### [facility] [address] [place], [address] CO2 [Moles/Vol] 27.0 mmol/L Normal 21.0-32.0 [facility] Comment on above: Performed By: #### L 3890.6202, L3100.0460, L3890.6102, L3100.0300, L3890.6301 #### [facility] [address] [place], [address] Creatinine [Mass/Vol] 0.89 mg/dL Normal 0.55-1.02 [facility] Comment on above: Result Comment: The validity of the calculated GFR GFRAA in patients over 70 years has not been determined. Clinical correlation is essential. Performed By: #### L 3890.6202, L3100.0460, L3890.6102, L3100.0300, L3890.6301 #### [facility] [address] [place], [address] ECRCL 87.89 ml/min Normal [facility] Comment on above: Performed By: #### L 3890.6202, L3100.0460, L3890.6102, L3100.0300, L3890.6301 #### [facility] [address] [place], [address] EST GFR - AA 86 mL/min Normal >60 [facility] Comment on above: Result Comment: Afri can Cymraes GFR Calc Performed By: #### L 3890.6202, L3100.0460, L3890.6102, L3100.0300, L3890.6301 #### [facility] [address] [place], [address] GAP 7 Normal 5-15 [facility] Comment on above: Performed By: #### L 3890.6202, L3100.0460, L3890.6102, L3100.0300, L3890.6301 #### [facility] [address] [place], [address] GFR/1.73 sq M.predicted among non-blacks MDRD (S/P/Bld) [Vol rate/Area] 71 mL/min/{1.73_m2} Normal >60 [facility] Comment on above: Result Comment: Non- GFR Calc Performed By: #### L 3890.6202, L3100.0460, L3890.6102, L3100.0300, L3890.6301 #### [facility] [address] [place], [address] Glucose [Mass/Vol] 412 mg/dL High 74-106 [facility] Comment on above: Result Comment: Gluc ose result greater than or equal to 200 mg/dL suggests DIABETES MELLITUS per A.D.A. criteria. Performed By: #### L 3890.6202, L3100.0460, L3890.6102, L3100.0300, L3890.6301 #### [facility] [address] [place], [address] Potassium [Moles/Vol] 4.3 mmol/L Normal 3.5-5.1 [facility] Comment on above: Performed By: #### L 3890.6202, L3100.0460, L3890.6102, L3100.0300, L3890.6301 #### [facility] [address] [place], [address] Sodium [Moles/Vol] 136 mmol/L Normal 136-145 [facility] Comment on above: Performed By: #### L 3890.6202, L3100.0460, L3890.6102, L3100.0300, L3890.6301 #### [facility] [address] [place], [address] Urea nitrogen [Mass/Vol] 20 mg/dL High 7-18 [facility] Comment on above: Performed By: #### L 3890.6202, L3100.0460, L3890.6102, L3100.0300, L3890.6301 #### [facility] [address] [place], [address] Bedside Glucoseon 04-01-2024 FINGERSTICK GLU 391 mg/dL High 74-106 [facility] Comment on above: Result Comment: NORMA GEMENT OF PATIENT CARE PER NURSING PROTOCOL Performed By: #### L 3890.6202, L3100.0460, L3890.6102, L3100.0300, L3890.6301 #### [facility] [address] [place], [address] FINGERSTICK GLU 335 mg/dL High 74-106 [facility] Comment on above: Result Comment: NORMA GEMENT OF PATIENT CARE PER NURSING PROTOCOL Performed By: #### L 3890.6202, L3100.0460, L3890.6102, L3100.0300, L3890.6301 #### [facility] [address] [place], [address] CBC W/Diff, Automatedon 10-3 Absolute Lymph 1.77 X10 3/uL Normal 0.83-4.51 [facility] Comment on above: Performed By: #### L 3890.6202, L3100.0460, L3890.6102, L3100.0300, L3890.6301 #### [facility] [address] [place], [address] Absolute Neut 7.8 X10 3/uL High 2.0-7.7 [facility] Comment on above: Performed By: #### L 3890.6202, L3100.0460, L3890.6102, L3100.0300, L3890.6301 #### [facility] [address] [place], [address] Basophils/100 WBC (Bld) 0.6 % Normal 0-1 [facility] Comment on above: Performed By: #### L 3890.6202, L3100.0460, L3890.6102, L3100.0300, L3890.6301 #### [facility] [address] [place], [address] Eosinophils/100 WBC (Bld) 0.9 % Normal 0-5 [facility] Comment on above: Performed By: #### L 3890.6202, L3100.0460, L3890.6102, L3100.0300, L3890.6301 #### [facility] [address] [place], [address] Erythrocyte distribution width (RBC) [Ratio] 13.0 % Normal 11.6-14.6 [facility] Comment on above: Performed By: #### L 3890.6202, L3100.0460, L3890.6102, L3100.0300, L3890.6301 #### [facility] [address] [place], [address] Hematocrit (Bld) [Volume fraction] 42.0 % Normal 37-47 [facility] Comment on above: Performed By: #### L 3890.6202, L3100.0460, L3890.6102, L3100.0300, L3890.6301 #### [facility] [address] [place], [address] Hemoglobin (Bld) [Mass/Vol] 14.0 g/dL Normal 12.0-15.0 [facility] Comment on above: Performed By: #### L 3890.6202, L3100.0460, L3890.6102, L3100.0300, L3890.6301 #### [facility] [address] [place], [address] IG% 0.500 Normal 0.0-0.9 [facility] Comment on above: Result Comment: IG% - Immature Granulocytes (promyelocytes, myelocytes and metamyelocytes) > 1% indicates that a LEFT SHIFT is Present. Performed By: #### L 3890.6202, L3100.0460, L3890.6102, L3100.0300, L3890.6301 #### [facility] [address] [place], [address] Lymphocytes/100 WBC (Bld) 17.5 % Low 19-41 [facility] Comment on above: Performed By: #### L 3890.6202, L3100.0460, L3890.6102, L3100.0300, L3890.6301 #### [facility] [address] [place], [address] MCH (RBC) [Entitic mass] 30.6 pg Normal 27.0-32.0 [facility] Comment on above: Performed By: #### L 3890.6202, L3100.0460, L3890.6102, L3100.0300, L3890.6301 #### [facility] [address] [place], [address] MCHC (RBC) [Mass/Vol] 33.3 g/dL Normal 32-36 [facility] Comment on above: Performed By: #### L 3890.6202, L3100.0460, L3890.6102, L3100.0300, L3890.6301 #### [facility] [address] [place], [address] MCV (RBC) [Entitic vol] 91.7 fL Normal 81-99 [facility] Comment on above: Performed By: #### L 3890.6202, L3100.0460, L3890.6102, L3100.0300, L3890.6301 #### [facility] [address] [place], [address] Monocytes/100 WBC (Bld) 3.8 % Normal 0-10 [facility] Comment on above: Performed By: #### L 3890.6202, L3100.0460, L3890.6102, L3100.0300, L3890.6301 #### [facility] [address] [place], [address] Neutrophils/100 WBC (Bld) 76.7 % High 47-70 [facility] Comment on above: Performed By: #### L 3890.6202, L3100.0460, L3890.6102, L3100.0300, L3890.6301 #### [facility] [address] [place], [address] Nucleated RBC (Bld) [#/Vol] 0 10*3/uL Normal 0-5 [facility] Comment on above: Performed By: #### L 3890.6202, L3100.0460, L3890.6102, L3100.0300, L3890.6301 #### [facility] [address] [place], [address] Platelet mean volume (Bld) [Entitic vol] 10.3 fL Normal 6.2-12.0 [facility] Comment on above: Performed By: #### L 3890.6202, L3100.0460, L3890.6102, L3100.0300, L3890.6301 #### [facility] [address] [place], [address] Platelets (Bld) [#/Vol] 287 10*3/uL Normal 150-450 [facility] Comment on above: Performed By: #### L 3890.6202, L3100.0460, L3890.6102, L3100.0300, L3890.6301 #### [facility] [address] [place], [address] RBC (Bld) [#/Vol] 4.58 10*6/uL Normal 4.2-5.4 [facility] Comment on above: Performed By: #### L 3890.6202, L3100.0460, L3890.6102, L3100.0300, L3890.6301 #### [facility] [address] [place], [address] RDW SD 43.8 fl Normal 35.1-43.9 [facility] Comment on above: Performed By: #### L 3890.6202, L3100.0460, L3890.6102, L3100.0300, L3890.6301 #### [facility] [address] [place], [address] WBC (Bld) [#/Vol] 10.1 10*3/uL Normal 4.4-11.0 [facility] Comment on above: Performed By: #### L 3890.6202, L3100.0460, L3890.6102, L3100.0300, L3890.6301 #### [facility] [address], [address] Emergency Department Summary on 04-01-2024 Emergency Department Summary [facility] Medical Records Department [address] [place] [address] Emergency Department Summary 04/01/24 MR#: [id number] Acct: [id number] Name: MEHDI FRIENDALLEN Agee Rep #: [id number] : 1970 53 From: Kyree Ariza DO PCP: Dr. Shashank Tai MD Status:DEP ER Location: ED HPI History of Present Illness Chief Complaint: Hyperglycemia Informant: patient, family and EMS Narrative Narrative: 53-year-old female presenting to the emergency room with hyperglycemia. Patient called the ambulance this morning because she got out of bed felt chilled and shaky. She states she was trying to make it to the bathroom had urinary incontinence. She states that her blood sugar was was high (around 425). She has not taken her diabetes medicine in over a week. She states that it is upsetting her stomach which she states when she had a few doses of Ozempic. She is post to see her doctor again in about 6 days. Patient states now she feels very hot like she might have a fever. She denies any respiratory symptoms no vomiting diarrhea. States that her mouth feels dry. 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 Leukocytosis Diabetes mellitus Home Medications ???Medication ???Instructions ???Recorded ???Last Taken ???Type metformin 500 mg tablet 1,000 mg PO BID diabetes 02/28/14 11/26/19 16:00 History atorvastatin 40 mg tablet 80 mg PO DAILY cholesterol 11/26/19 11/25/19 History clopidogrel 75 mg tablet 75 mg PO DAILY 12/14/19 07/05/22 History warfarin 5 mg tablet 7 mg PO DAILY DVT 12/14/19 07/05/22 History biotin 5,000 mcg disintegrating 10,000 mcg PO DAILY 04/03/20 Unknown History tablet pantoprazole 40 mg tablet,delayed 40 mg PO DAILY 04/03/20 07/09/22 History release doxepin 10 mg capsule 10 mg PO PRN PRN Sleep 12/14/20 Unknown History escitalopram oxalate 20 mg tablet 20 mg PO DAILY 12/14/20 Unknown History (Lexapro) bupropion HCl 150 mg tablet,12 hr 150 mg PO BID 07/05/22 Unknown History sustained-release valsartan 160 mg tablet 160 mg PO DAILY 07/05/22 07/09/22 History sennosides 8.6 mg-docusate sodium 1 tab PO BID PRN Constipation 11/25/22 Unknown History 50 mg tablet (Senexon-S) dapagliflozin propanediol 10 mg 10 mg PO DAILY 05/15/23 Unknown History tablet (Farxiga) pioglitazone 30 mg tablet 30 mg PO DAILY Diabetes 05/15/23 Unknown History levofloxacin 750 mg tablet 750 mg PO DAILY #5 tabs 05/17/23 Unknown Rx metronidazole 500 mg tablet 500 mg PO Q6H #40 tabs 06/10/23 Unknown Rx ondansetron 4 mg disintegrating 4 mg PO Q8H PRN PRN Nausea #10 tabs 06/26/23 Unknown Rx tablet ondansetron 4 mg disintegrating 4 mg PO Q8H PRN PRN Nausea #10 tabs 07/25/23 Unknown Rx tablet tramadol 50 mg tablet 50 mg PO Q8H PRN pain #10 tabs 07/25/23 Unknown Rx polysaccharide iron complex 150 mg 150 mg PO BID #180 caps 02/19/24 Unknown Rx iron capsule (Ferrex) ondansetron 4 mg disintegrating 4 mg PO TID PRN nausea and 02/20/24 Unknown Rx tablet vomiting #21 tabs oxycodone-acetaminophen 5 mg-325 1 tab PO Q6H PRN pain 3 days #12 02/20/24 Unknown Rx mg tablet (Percocet) tabs sulfamethoxazole 800 1 tab PO BID 7 days #14 tabs 02/20/24 Unknown Rx mg-trimethoprim 160 mg tablet (Bactrim DS) sulfamethoxazole 800 1 tab PO BID #14 TABLETS 04/01/24 Unknown Rx mg-trimethoprim 160 mg tablet Allergy/AdvReac Type Severity Reaction Status Date / Time latex Allergy Mild rash Verified 04/01/24 08:00 Penicillins (PCN) Allergy Hives Verified 04/01/24 08:00 Family History Brother Diabetes Father Diabetes Mother Diabetes Uncle Diabetes Skin cancer Colon cancer Uncle Diabetes Aunt Breast cancer Surgical History Status post endometrial ablation History of esophagogastroduodenoscop y (EGD) Hx of partial nephrectomy History of embolectomy H/O tubal ligation Hx of cholecystectomy H/O lithotripsy Social History household members: family current occupational status: employed current occupation: [employer] history of recent travel: No sexually active: No Smoking Status: Current every day smoker tobacco (more content not included)... Normal [facility] Liver Profileon 04-01-2024 Albumin [Mass/Vol] 3.2 g/dL Normal 3.2-5.0 [facility] Comment on above: Performed By: #### L 3890.6202, L3100.0460, L3890.6102, L3100.0300, L3890.6301 #### [facility] [address] [place], [address] ALK P 130 U/L High 45-117 [facility] Comment on above: Performed By: #### L 3890.6202, L3100.0460, L3890.6102, L3100.0300, L3890.6301 #### [facility] [address] [place], [address] ALT [Catalytic activity/Vol] 38 U/L Normal 13-56 [facility] Comment on above: Performed By: #### L 3890.6202, L3100.0460, L3890.6102, L3100.0300, L3890.6301 #### [facility] [address] [place], [address] AST [Catalytic activity/Vol] 55 U/L High 15-37 [facility] Comment on above: Performed By: #### L 3890.6202, L3100.0460, L3890.6102, L3100.0300, L3890.6301 #### [facility] [address] [place], [address] Bilirubin [Mass/Vol] 0.20 mg/dL Normal 0.20-1.00 [facility] Comment on above: Result Comment: For patients on eltrombopag therapy, use of Dimension Matthews TBIL is not recommended. Performed By: #### L 3890.6202, L3100.0460, L3890.6102, L3100.0300, L3890.6301 #### [facility] [address] [place], [address] Bilirubin.direct [Mass/Vol] 0.08 mg/dL Normal 0.00-0.30 [facility] Comment on above: Performed By: #### L 3890.6202, L3100.0460, L3890.6102, L3100.0300, L3890.6301 #### [facility] [address] [place], [address] Globulin (S) [Mass/Vol] 3.7 g/dL Normal 2.2-4.2 [facility] Comment on above: Performed By: #### L 3890.6202, L3100.0460, L3890.6102, L3100.0300, L3890.6301 #### [facility] [address] [place], [address] T PROT 6.9 g/dL Normal 6.4-8.2 [facility] Comment on above: Performed By: #### L 3890.6202, L3100.0460, L3890.6102, L3100.0300, L3890.6301 #### [facility] [address] [place], [address] Prothrombin Time w/INRon INR Coag (PPP) [Relative time] 1.5 {INR} Normal [facility] Comment on above: Performed By: #### L 3890.6202, L3100.0460, L3890.6102, L3100.0300, L3890.6301 #### [facility] [address] [place], [address] PT Coag (PPP) [Time] 18.1 s High 11.7-14.9 [facility] Comment on above: Performed By: #### L 3890.6202, L3100.0460, L3890.6102, L3100.0300, L3890.6301 #### [facility] [address] [place], [address] Urinalysis, Completeon 04-01 BACTERIA 1+ /hpf Normal None Seen [facility] Comment on above: Order Comment: CLEAN CATCH Performed By: #### L 400.0001 #### [facility] [address] [place], [address] WBC >100 SEEN Normal 0-5 [facility] Comment on above: Order Comment: CLEAN CATCH Performed By: #### L 400.0001 #### [facility] [address] [place], [address] EPI,SQUAMOUS 0 SEEN Normal -10 [facility] Comment on above: Order Comment: CLEAN CATCH Performed By: #### L 400.0001 #### [facility] [address] [place], [address] Mucus Ql (Urine sed) 0 SEEN Normal [facility] Comment on above: Order Comment: CLEAN CATCH Performed By: #### L 400.0001 #### [facility] [address] [place], [address] RBC 0 SEEN Normal 0-5 [facility] Comment on above: Order Comment: CLEAN CATCH Performed By: #### L 400.0001 #### [facility] [address] [place], [address] CBC W/Diff, Automatedon 09-3 0 Absolute Lymph 3.13 X10 3/uL Normal 0.83-4.51 [facility] Comment on above: Performed By: #### L 500.4050, L100.0100, L501.9520 #### [facility] [address] [place], [address] Absolute Neut 4.5 X10 3/uL Normal 2.0-7.7 [facility] Comment on above: Performed By: #### L 500.4050, L100.0100, L501.9520 #### [facility] [address] [place], [address] Basophils/100 WBC (Bld) 1.5 % High 0-1 [facility] Comment on above: Performed By: #### L 500.4050, L100.0100, L501.9520 #### [facility] [address] [place], [address] Eosinophils/100 WBC (Bld) 2.4 % Normal 0-5 [facility] Comment on above: Performed By: #### L 500.4050, L100.0100, L501.9520 #### [facility] [address] [place], [address] Erythrocyte distribution width (RBC) [Ratio] 14.0 % Normal 11.6-14.6 [facility] Comment on above: Performed By: #### L 500.4050, L100.0100, L501.9520 #### [facility] [address] [place], [address] Hematocrit (Bld) [Volume fraction] 43.2 % Normal 37-47 [facility] Comment on above: Performed By: #### L 500.4050, L100.0100, L501.9520 #### [facility] [address] [place], [address] Hemoglobin (Bld) [Mass/Vol] 14.3 g/dL Normal 12.0-15.0 [facility] Comment on above: Performed By: #### L 500.4050, L100.0100, L501.9520 #### [facility] [address] [place], [address] IG% 0.600 Normal 0.0-0.9 [facility] Comment on above: Result Comment: IG% - Immature Granulocytes (promyelocytes, myelocytes and metamyelocytes) > 1% indicates that a LEFT SHIFT is Present. Performed By: #### L 500.4050, L100.0100, L501.9520 #### [facility] [address] [place], [address] Lymphocytes/100 WBC (Bld) 36.1 % Normal 19-41 [facility] Comment on above: Performed By: #### L 500.4050, L100.0100, L501.9520 #### [facility] [address] [place], [address] MCH (RBC) [Entitic mass] 30.9 pg Normal 27.0-32.0 [facility] Comment on above: Performed By: #### L 500.4050, L100.0100, L501.9520 #### [facility] [address] [place], [address] MCHC (RBC) [Mass/Vol] 33.1 g/dL Normal 32-36 [facility] Comment on above: Performed By: #### L 500.4050, L100.0100, L501.9520 #### [facility] [address] [place], [address] MCV (RBC) [Entitic vol] 93.3 fL Normal 81-99 [facility] Comment on above: Performed By: #### L 500.4050, L100.0100, L501.9520 #### [facility] [address] [place], [address] Monocytes/100 WBC (Bld) 7.6 % Normal 0-10 [facility] Comment on above: Performed By: #### L 500.4050, L100.0100, L501.9520 #### [facility] [address] [place], [address] Neutrophils/100 WBC (Bld) 51.8 % Normal 47-70 [facility] Comment on above: Performed By: #### L 500.4050, L100.0100, L501.9520 #### [facility] [address] [place], [address] Nucleated RBC (Bld) [#/Vol] 0 10*3/uL Normal 0-5 [facility] Comment on above: Performed By: #### L 500.4050, L100.0100, L501.9520 #### [facility] [address] [place], [address] Platelet mean volume (Bld) [Entitic vol] 9.6 fL Normal 6.2-12.0 [facility] Comment on above: Performed By: #### L 500.4050, L100.0100, L501.9520 #### [facility] [address] [place], [address] Platelets (Bld) [#/Vol] 393 10*3/uL Normal 150-450 [facility] Comment on above: Performed By: #### L 500.4050, L100.0100, L501.9520 #### [facility] [address] [place], [address] RBC (Bld) [#/Vol] 4.63 10*6/uL Normal 4.2-5.4 [facility] Comment on above: Performed By: #### L 500.4050, L100.0100, L501.9520 #### [facility] [address] [place], [address] RDW SD 47.8 fl High 35.1-43.9 [facility] Comment on above: Performed By: #### L 500.4050, L100.0100, L501.9520 #### [facility] [address] [place], [address] WBC (Bld) [#/Vol] 8.7 10*3/uL Normal 4.4-11.0 [facility] Comment on above: Performed By: #### L 500.4050, L100.0100, L501.9520 #### [facility] [address] [place], [address] Comprehensive Metabolic Prof [facility] 03-01-2024 Albumin [Mass/Vol] 3.2 g/dL Normal 3.2-5.0 [facility] Comment on above: Performed By: #### L 500.4050, L100.0100, L501.9520 #### [facility] [address] [place], [address] Albumin/Globulin [Mass ratio] 0.9 {ratio} Normal 0.9-2.4 [facility] Comment on above: Performed By: #### L 500.4050, L100.0100, L501.9520 #### [facility] [address] [place], [address] ALK P 91 U/L Normal 45-117 [facility] Comment on above: Performed By: #### L 500.4050, L100.0100, L501.9520 #### [facility] [address] [place], [address] ALT [Catalytic activity/Vol] 21 U/L Normal 13-56 [facility] Comment on above: Performed By: #### L 500.4050, L100.0100, L501.9520 #### [facility] [address] [place], [address] AST [Catalytic activity/Vol] 33 U/L Normal 15-37 [facility] Comment on above: Result Comment: Slig ht Hemolysis, Result may be falsely increased. Performed By: #### L 500.4050, L100.0100, L501.9520 #### [facility] [address] [place], [address] Bilirubin [Mass/Vol] 0.30 mg/dL Normal 0.20-1.00 [facility] Comment on above: Result Comment: For patients on eltrombopag therapy, use of Dimension Matthews TBIL is not recommended. Performed By: #### L 500.4050, L100.0100, L501.9520 #### [facility] [address] [place], [address] BUN/CRE 27.1 RATIO High 10-20 [facility] Comment on above: Performed By: #### L 500.4050, L100.0100, L501.9520 #### [facility] [address] [place], [address] CA,Total 9.2 mg/dL Normal 8.5-10.1 [facility] Comment on above: Performed By: #### L 500.4050, L100.0100, L501.9520 #### [facility] [address] [place], [address] Chloride [Moles/Vol] 106 mmol/L Normal 98-107 [facility] Comment on above: Performed By: #### L 500.4050, L100.0100, L501.9520 #### [facility] [address] [place], [address] CO2 [Moles/Vol] 27.0 mmol/L Normal 21.0-32.0 [facility] Comment on above: Performed By: #### L 500.4050, L100.0100, L501.9520 #### [facility] [address] [place], [address] Creatinine [Mass/Vol] 0.85 mg/dL Normal 0.55-1.02 [facility] Comment on above: Result Comment: The validity of the calculated GFR GFRAA in patients over 70 years has not been determined. Clinical correlation is essential. Performed By: #### L 500.4050, L100.0100, L501.9520 #### [facility] [address] [place], [address] EST GFR - AA 90 mL/min Normal >60 [facility] Comment on above: Result Comment: Afri can Cymraes GFR Calc Performed By: #### L 500.4050, L100.0100, L501.9520 #### [facility] [address] [place], [address] GAP 5 Normal 5-15 [facility] Comment on above: Performed By: #### L 500.4050, L100.0100, L501.9520 #### [facility] [address] [place], [address] GFR/1.73 sq M.predicted among non-blacks MDRD (S/P/Bld) [Vol rate/Area] 74 mL/min/{1.73_m2} Normal >60 [facility] Comment on above: Result Comment: Non- GFR Calc Performed By: #### L 500.4050, L100.0100, L501.9520 #### [facility] [address] [place], [address] Globulin (S) [Mass/Vol] 3.6 g/dL Normal 2.2-4.2 [facility] Comment on above: Performed By: #### L 500.4050, L100.0100, L501.9520 #### [facility] [address] [place], [address] Glucose [Mass/Vol] 199 mg/dL High 74-106 [facility] Comment on above: Result Comment: Fast ing Glucose result greater than or equal to 126 mg/dL suggests DIABETES MELLITUS per A.D.A. criteria. Performed By: #### L 500.4050, L100.0100, L501.9520 #### [facility] [address] [place], [address] Potassium [Moles/Vol] 4.3 mmol/L Normal 3.5-5.1 [facility] Comment on above: Result Comment: Slig ht Hemolysis, Result may be falsely increased. Performed By: #### L 500.4050, L100.0100, L501.9520 #### [facility] [address] [place], [address] Sodium [Moles/Vol] 138 mmol/L Normal 136-145 [facility] Comment on above: Performed By: #### L 500.4050, L100.0100, L501.9520 #### [facility] [address] [place], [address] T PROT 6.8 g/dL Normal 6.4-8.2 [facility] Comment on above: Performed By: #### L 500.4050, L100.0100, L501.9520 #### [facility] [address] [place], [address] Urea nitrogen [Mass/Vol] 23 mg/dL High 7-18 [facility] Comment on above: Performed By: #### L 500.4050, L100.0100, L501.9520 #### [facility] [address] [place], [address] Thyroid Stim Hormone (TSH)on 03-01-2024 TSH 2.430 uIU/mL Normal 0.358-3.740 [facility] Comment on above: Performed By: #### L 500.4050, L100.0100, L501.9520 #### [facility] [address] [place], [address] Urine Cultureon 02-22-2024 URC Proteus mirabilis [place] Count >100,000 Proteus mirabilis: REACTION Ampicillin Islt AYUSH <=2 S Ampicillin+Sulbac Islt AYUSH <=2 S ceFAZolin Islt AYUSH <=4 S Cefepime Islt AYUSH <=0.12 S cefTRIAXone Islt AYUSH <=0.25 S Ciprofloxacin Islt AYUSH <=0.25 S Ertapenem Islt AYUSH <=0.12 S Gentamicin Islt AYUSH <=1 S levoFLOXacin Islt AYUSH <=0.12 S Nitrofurantoin Islt AYUSH 128 R Pip+Tazo Islt AYUSH <=4 S Tobramycin Islt AYUSH <=1 S TMP SMX Islt AYUSH <=20 S Normal [facility] Comment on above: Performed By: #### L 400.0001 #### [facility] [address] [place], [address] Basic Metabolic Profile (BMP )on 02-20-2024 BUN/CRE 24.1 RATIO High 03-21 [facility] Comment on above: Performed By: #### L 500.4050, L100.0100, L501.9520 #### [facility] [address] [place], [address] CA,Total 9.6 mg/dL Normal 8.5-10.1 [facility] Comment on above: Performed By: #### L 500.4050, L100.0100, L501.9520 #### [facility] [address] [place], [address] Chloride [Moles/Vol] 101 mmol/L Normal 98-107 [facility] Comment on above: Performed By: #### L 500.4050, L100.0100, L501.9520 #### [facility] [address] [place], [address] CO2 [Moles/Vol] 30.0 mmol/L Normal 21.0-32.0 [facility] Comment on above: Performed By: #### L 500.4050, L100.0100, L501.9520 #### [facility] [address] [place], [address] Creatinine [Mass/Vol] 0.75 mg/dL Normal 0.55-1.02 [facility] Comment on above: Result Comment: The validity of the calculated GFR GFRAA in patients over 70 years has not been determined. Clinical correlation is essential. Performed By: #### L 500.4050, L100.0100, L501.9520 #### [facility] [address] [place], [address] ECRCL 96.46 ml/min Normal [facility] Comment on above: Performed By: #### L 500.4050, L100.0100, L501.9520 #### [facility] [address] [place], [address] EST GFR - AA 104 mL/min Normal >60 [facility] Comment on above: Result Comment: Afri can Cymraes GFR Calc Performed By: #### L 500.4050, L100.0100, L501.9520 #### [facility] [address] [place], [address] GAP 4 Low 5-15 [facility] Comment on above: Performed By: #### L 500.4050, L100.0100, L501.9520 #### [facility] [address] [place], [address] GFR/1.73 sq M.predicted among non-blacks MDRD (S/P/Bld) [Vol rate/Area] 86 mL/min/{1.73_m2} Normal >60 [facility] Comment on above: Result Comment: Non- GFR Calc Performed By: #### L 500.4050, L100.0100, L501.9520 #### [facility] [address] [place], [address] Glucose [Mass/Vol] 180 mg/dL High 74-106 [facility] Comment on above: Result Comment: Fast ing Glucose result greater than or equal to 126 mg/dL suggests DIABETES MELLITUS per A.D.A. criteria. Performed By: #### L 500.4050, L100.0100, L501.9520 #### [facility] [address] [place], [address] Potassium [Moles/Vol] 3.5 mmol/L Normal 3.5-5.1 [facility] Comment on above: Performed By: #### L 500.4050, L100.0100, L501.9520 #### [facility] [address] [place], [address] Sodium [Moles/Vol] 135 mmol/L Low 136-145 [facility] Comment on above: Performed By: #### L 500.4050, L100.0100, L501.9520 #### [facility] [address] [place], [address] Urea nitrogen [Mass/Vol] 18 mg/dL Normal 7-18 [facility] Comment on above: Performed By: #### L 500.4050, L100.0100, L501.9520 #### [facility] [address] [place], [address] CBC W/Diff, Automatedon 2 0-2023 Absolute Lymph 4.05 X10 3/uL Normal 0.83-4.51 [facility] Comment on above: Performed By: #### L 500.4050, L100.0100, L501.9520 #### [facility] [address] [place], [address] Absolute Neut 5.9 X10 3/uL Normal 2.0-7.7 [facility] Comment on above: Performed By: #### L 500.4050, L100.0100, L501.9520 #### [facility] [address] [place], [address] Basophils/100 WBC (Bld) 1.0 % Normal 0-1 [facility] Comment on above: Performed By: #### L 500.4050, L100.0100, L501.9520 #### [facility] [address] [place], [address] Eosinophils/100 WBC (Bld) 2.2 % Normal 0-5 [facility] Comment on above: Performed By: #### L 500.4050, L100.0100, L501.9520 #### [facility] [address] [place], [address] Erythrocyte distribution width (RBC) [Ratio] 14.5 % Normal 11.6-14.6 [facility] Comment on above: Performed By: #### L 500.4050, L100.0100, L501.9520 #### [facility] [address] [place], [address] Hematocrit (Bld) [Volume fraction] 43.8 % Normal 37-47 [facility] Comment on above: Performed By: #### L 500.4050, L100.0100, L501.9520 #### [facility] [address] [place], [address] Hemoglobin (Bld) [Mass/Vol] 14.6 g/dL Normal 12.0-15.0 [facility] Comment on above: Performed By: #### L 500.4050, L100.0100, L501.9520 #### [facility] [address] [place], [address] IG% 0.900 Normal 0.0-0.9 [facility] Comment on above: Result Comment: IG% - Immature Granulocytes (promyelocytes, myelocytes and metamyelocytes) > 1% indicates that a LEFT SHIFT is Present. Performed By: #### L 500.4050, L100.0100, L501.9520 #### [facility] [address] [place], [address] Lymphocytes/100 WBC (Bld) 35.4 % Normal 19-41 [facility] Comment on above: Performed By: #### L 500.4050, L100.0100, L501.9520 #### [facility] [address] [place], [address] MCH (RBC) [Entitic mass] 30.9 pg Normal 27.0-32.0 [facility] Comment on above: Performed By: #### L 500.4050, L100.0100, L501.9520 #### [facility] [address] [place], [address] MCHC (RBC) [Mass/Vol] 33.3 g/dL Normal 32-36 [facility] Comment on above: Performed By: #### L 500.4050, L100.0100, L501.9520 #### [facility] [address] [place], [address] MCV (RBC) [Entitic vol] 92.6 fL Normal 81-99 [facility] Comment on above: Performed By: #### L 500.4050, L100.0100, L501.9520 #### [facility] [address] [place], [address] Monocytes/100 WBC (Bld) 9.0 % Normal 0-10 [facility] Comment on above: Performed By: #### L 500.4050, L100.0100, L501.9520 #### [facility] [address] [place], [address] Neutrophils/100 WBC (Bld) 51.5 % Normal 47-70 [facility] Comment on above: Performed By: #### L 500.4050, L100.0100, L501.9520 #### [facility] [address] [place], [address] Nucleated RBC (Bld) [#/Vol] 0 10*3/uL Normal 0-5 [facility] Comment on above: Performed By: #### L 500.4050, L100.0100, L501.9520 #### [facility] [address] [place], [address] Platelet mean volume (Bld) [Entitic vol] 9.5 fL Normal 6.2-12.0 [facility] Comment on above: Performed By: #### L 500.4050, L100.0100, L501.9520 #### [facility] [address] [place], [address] Platelets (Bld) [#/Vol] 397 10*3/uL Normal 150-450 [facility] Comment on above: Performed By: #### L 500.4050, L100.0100, L501.9520 #### [facility] [address] [place], [address] RBC (Bld) [#/Vol] 4.73 10*6/uL Normal 4.2-5.4 [facility] Comment on above: Performed By: #### L 500.4050, L100.0100, L501.9520 #### [facility] [address] [place], [address] RDW SD 49.1 fl High 35.1-43.9 [facility] Comment on above: Performed By: #### L 500.4050, L100.0100, L501.9520 #### [facility] [address] [place], [address] WBC (Bld) [#/Vol] 11.5 10*3/uL High 4.4-11.0 [facility] Comment on above: Performed By: #### L 500.4050, L100.0100, L501.9520 #### [facility] [address] [place], [address] Emergency Department Summary on 02-20-2024 Emergency Department Summary [facility] Medical Records Department [address] [place] [address] Emergency Department Summary 02/20/24 MR#: [id number] Acct: [id number] Name: ROGERIO FRIEND Rep #: [id number] : 1970 53 From: Vincent Paniagua DO PCP: Dr. 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 She states that she has had right sided abdominal/back pain with nausea and vomiting for the past few days. She denies any fevers or chills diarrhea dysuria or known sick contacts. She states that there has been no blood or discoloration to her bouts of vomiting. She states symptoms do not seem to be improving and secondary to this she comes in for evaluation. 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 Bruising Chronic cough Contact with or exposure to other viral diseases Contraceptive management Depression Diabetes mellitus DVT (deep venous thrombosis) Easy bruising Excessive bleeding Gastric reflux History of echocardiogram History of kidney stones Injury of head and neck Leg cramps Leukocytosis Menorrhagia with irregular cycle Migraine headache Multifocal pneumonia Sleep apnea Smoker URI (upper respiratory infection) Wears dentures Wears glasses Home Medications ???Medication ???Instructions ???Recorded ???Last Taken ???Type metformin 500 mg tablet 1,000 mg PO BID diabetes 02/28/14 11/26/19 16:00 History atorvastatin 40 mg tablet 80 mg PO DAILY cholesterol 11/26/19 11/25/19 History clopidogrel 75 mg tablet 75 mg PO DAILY 12/14/19 07/05/22 History warfarin 5 mg tablet 7 mg PO DAILY DVT 12/14/19 07/05/22 History biotin 5,000 mcg disintegrating 10,000 mcg PO DAILY 04/03/20 Unknown History tablet pantoprazole 40 mg tablet,delayed 40 mg PO DAILY 04/03/20 07/09/22 History release doxepin 10 mg capsule 10 mg PO PRN PRN Sleep 12/14/20 Unknown History escitalopram oxalate 20 mg tablet 20 mg PO DAILY 12/14/20 Unknown History (Lexapro) bupropion HCl 150 mg tablet,12 hr 150 mg PO BID 07/05/22 Unknown History sustained-release valsartan 160 mg tablet 160 mg PO DAILY 07/05/22 07/09/22 History sennosides 8.6 mg-docusate sodium 1 tab PO BID PRN Constipation 11/25/22 Unknown History 50 mg tablet (Senexon-S) dapagliflozin propanediol 10 mg 10 mg PO DAILY 05/15/23 Unknown History tablet (Farxiga) pioglitazone 30 mg tablet 30 mg PO DAILY Diabetes 05/15/23 Unknown History levofloxacin 750 mg tablet 750 mg PO DAILY #5 tabs 05/17/23 Unknown Rx metronidazole 500 mg tablet 500 mg PO Q6H #40 tabs 06/10/23 Unknown Rx ondansetron 4 mg disintegrating 4 mg PO Q8H PRN PRN Nausea #10 tabs 06/26/23 Unknown Rx tablet ondansetron 4 mg disintegrating 4 mg PO Q8H PRN PRN Nausea #10 tabs 07/25/23 Unknown Rx tablet tramadol 50 mg tablet 50 mg PO Q8H PRN pain #10 tabs 07/25/23 Unknown Rx polysaccharide iron complex 150 mg 150 mg PO BID #180 caps 02/19/24 Unknown Rx iron capsule (Ferrex) ondansetron 4 mg disintegrating 4 mg PO TID PRN nausea and 02/20/24 Unknown Rx tablet vomiting #21 tabs oxycodone-acetaminophen 5 mg-325 1 tab PO Q6H PRN pain 3 days #12 02/20/24 Unknown Rx mg tablet (Percocet) tabs sulfamethoxazole 800 1 tab PO BID 7 days #14 tabs 02/20/24 Unknown Rx mg-trimethoprim 160 mg tablet (Bactrim DS) Allergy/AdvReac Type Severity Reaction Status Date / Time latex Allergy Mild rash Verified 02/20/24 04:12 Penicillins (PCN) Allergy Hives Verified 02/20/24 04:12 Family History Brother Diabetes Father Diabetes Mother Diabetes Uncle Diabetes Skin cancer Colon cancer Uncle Diabetes Aunt Breast cancer Surgical History H/O lithotripsy H/O tubal ligation History of embolectomy History of esophagogastroduodenoscop y (EGD) Hx of cholecystectomy Hx of partial nephrectomy Status post endometrial ablation Social History household members: family current occupational status: employed current occupation: [employer] [employer] history of recent travel: No sexually active: No Smoking Status: Current every day smoker tobacco type: cigarettes alcohol intake: never substance use type: does not use what type of physical activity do you participate in: other seatbelt use: always do you feel safe at home: Yes additional social history: single ROS ROS ED Constituti (more content not included)... Normal [facility] Lipaseon 02-20-2024 Lipase [Catalytic activity/Vol] 18 U/L Normal 13-75 [facility] Comment on above: Result Comment: Shashank forde note: LIPASE revised reference range effective 22. New Lipase methodology. Expected to produce lower values than the previous assay method. NEW Reference Range: 13 - 75 U/L Performed By: #### L 500.4050, L100.0100, L501.9520 #### [facility] [address] [place], [address] Liver Profileon 02-20-2024 Albumin [Mass/Vol] 3.4 g/dL Normal 3.2-5.0 [facility] Comment on above: Performed By: #### L 500.4050, L100.0100, L501.9520 #### [facility] [address] [place], [address] ALK P 95 U/L Normal 45-117 [facility] Comment on above: Performed By: #### L 500.4050, L100.0100, L501.9520 #### [facility] [address] [place], [address] ALT [Catalytic activity/Vol] 20 U/L Normal 13-56 [facility] Comment on above: Performed By: #### L 500.4050, L100.0100, L501.9520 #### [facility] [address] [place], [address] AST [Catalytic activity/Vol] 12 U/L Low 15-37 [facility] Comment on above: Performed By: #### L 500.4050, L100.0100, L501.9520 #### [facility] [address] [place], [address] Bilirubin [Mass/Vol] 0.30 mg/dL Normal 0.20-1.00 [facility] Comment on above: Result Comment: For patients on eltrombopag therapy, use of Dimension Matthews TBIL is not recommended. Performed By: #### L 500.4050, L100.0100, L501.9520 #### [facility] [address] [place], [address] Bilirubin.direct [Mass/Vol] 0.11 mg/dL Normal 0.00-0.30 [facility] Comment on above: Performed By: #### L 500.4050, L100.0100, L501.9520 #### [facility] [address] [place], [address] Globulin (S) [Mass/Vol] 3.5 g/dL Normal 2.2-4.2 [facility] Comment on above: Performed By: #### L 500.4050, L100.0100, L501.9520 #### [facility] [address] [place], [address] T PROT 6.9 g/dL Normal 6.4-8.2 [facility] Comment on above: Performed By: #### L 500.4050, L100.0100, L501.9520 #### [facility] [address] [place], [address] M100.678on 02-20-2024 M100.678 Pending SARS-CoV-2 (COVID 19) Negative INFLUENZA A Negative INFLUENZA B Negative RSV PCR Negative Normal [facility] Comment on above: Performed By: #### L 500.4050, L100.0100, L501.9520 #### [facility] [address] [place], [address] Urinalysis, Completeon 02-19 BACTERIA 1+ /hpf Normal None Seen [facility] Comment on above: Order Comment: CLEAN CATCH Performed By: #### L 500.4050, L100.0100, L501.9520 #### [facility] [address] [place], [address] EPI,SQUAMOUS 0-5 SEEN Normal 5-10 [facility] Comment on above: Order Comment: CLEAN CATCH Performed By: #### L 500.4050, L100.0100, L501.9520 #### [facility] [address] [place], [address] WBC 25-50 SEEN Normal 0-5 [facility] Comment on above: Order Comment: CLEAN CATCH Performed By: #### L 500.4050, L100.0100, L501.9520 #### [facility] [address] [place], [address] Mucus Ql (Urine sed) 0 SEEN Normal [facility] Comment on above: Order Comment: CLEAN CATCH Performed By: #### L 500.4050, L100.0100, L501.9520 #### [facility] [address] [place], [address] RBC 0 SEEN Normal 0-5 [facility] Comment on above: Order Comment: CLEAN CATCH Performed By: #### L 500.4050, L100.0100, L501.9520 #### [facility] [address] [place], [address] NCS and/or EMG Patienton NCS and/or EMG Patient [facility] Pulmonary Services/Neurology [address] [place] [address] MR#: [id number] Acct: [id number] Name: ROGERIO FRIEND Rep #: [id number] : 1970 53 From: Tamanna Andrew MD Referring Dr: Shashank Tai MD Status: REG CLI Location: [facility] Date: 01/14/24 Sex: F C NCS and/or EMG Patient Report Ordering Doctor: Shashank Tai Chi DATE OF SERVICE: 01/14/24 Rogerio presents with complaints of pain in the left elbow and hand. She reports intermittent hand numbness. Electrodiagnostic findings: Left median motor nerve demonstrates prolonged latency with normal amplitude and reduced conduction velocity. Left ulnar motor response is within normal limits, including conduction across the elbow. Prolonged left median F???wave. Prolonged left median sensory latency at the wrist. Normal left ulnar and radial sensory responses. Needle EMG testing was performed the left upper limbs. All muscles tested showed no evidence of denervation with normal motor unit action potentials. Electrodiagnostic impression: This is an abnormal study in the left upper limb 1. Electrodiagnostic findings are suggestive of left-sided median mononeuropathy. This is consistent with a mild to moderate left carpal tunnel syndrome. 2. No electrodiagnostic evidence for ulnar neuropathy, including cubital tunnel syndrome. 3. No electrodiagnostic evidence is noted for cervical radiculopathy. Multi Select Codes Neurology Neurology Interp Codes: 24790-35 Musc test done w/n test comp (interp) and 23403-64 Nrv cndj tst 5-6 studies (interp) 01/14/241433 Date Tamanna Andrew MD CC: Dr. Tamanna Andrew MD; Dr. Shashank Tai MD Date Dictated: 08/1431 Date Transcribed: 01/14/241431 Outreach Professional: ISAK Signed Normal [facility] SCRN MAMM (CAD)W/CARLA BILATo n 01-14-2024 SCRN MAMM (CAD)W/CARLA BILAT [facility] Imaging Services [address] [place] [address] SCRN MAMM (CAD)W/CARLA BILAT MR#: [id number] Acct: [id number] Name: ROGERIO FRIEND Rep #: [id number] : 1970 F 53 From: Bandar dutta MD PCP: Dr. Shashank Tai MD Status: REG CLI Study: SCRN MAMM (CAD)W/CARLA BILAT Date of Exam: 12/31 09/23 Exam# [id number] Ordering Dr: Shashank Tai MD [id number] MAMMOGRAPHY - BILATERAL SCREENING REASON FOR EXAM: Female, 53 years old. Routine annual screening examination. PERTINENT HISTORY: Aunt with breast cancer. Grandfather with breast cancer. TECHNIQUE: Digital bilateral breast carla (3D mammographic acquisition) in the CC and MLO projections. 2-D mediolateral oblique (MLO) and craniocaudad (CC) views of both breasts were obtained. CAD: Full Field Digital Mammography with Computer Added Detection was performed. COMPARISON: Comparison is made with prior study December 04, 2022 and November 20, 2020. FINDINGS: Breast Composition: The breasts are almost entirely fatty. There are no dominant masses or suspicious calcifications. No other significant abnormalities are identified. There has been no significant change since the prior study. BI/SCRN MAMM (CAD)W/CARLA BILAT IMPRESSION: Stable bilateral screening mammogram. Yearly follow-up mammogram recommended. (A) ASSESSMENT CATEGORY: BIRADS Category 1: Negative. A letter regarding these results will be sent to the patient by the facility within 30 days. Approximately 10% of breast cancers are not detected by mammography. A normal mammogram should not delay biopsy of a clinically suspicious abnormality. [id number] Electronically Signed: Bandar Garcia MD at 15:10 EDT , CC: Dr. Shashank Tai MD Outreach Professional: Signed [facility] GASTRIC EMPTYING STUDYon 10-24-2023 ND GASTRIC EMPTYING STUDY ORIGINAL EXAMINATION: GASTRIC EMPTYING STUDY10/24/2023 3:10 pm TECHNIQUE: The patient received an oral radiolabeled solid-phase meal utilizing 2 mCi of Tc-99m sulfur colloid in cooked egg. Sequential anterior and posterior images of the abdomen were then acquired over the next four hours. Computer quantification of gastric emptying (using geometric mean activity) was performed. COMPARISON: None HISTORY: ORDERING SYSTEM PROVIDED HISTORY: Reason for Exam: GERD NAUSEA, CHRONIC GERD FINDINGS: Sequential static images demonstrates radiotracer within the gastric lumen, progressively emptying into small bowel. Computer quantification demonstrates gastric retention as follows: 97 % at 0.5 hr (normal min 70%) 97 % at 1 hr (normal 30%-90%) 57 % at 2 hr (normal max 60%) 14 % at 3 hr (normal max 30%) 2 % at 4 hr (normal max 10%) IMPRESSION: Briefly delayed gastric emptying at 1 hour, with subsequent normalization. Interpreted by: Osmar Sneed DO Preliminary Report By: Osmar Sneed DO Electronically signed By Osmar Sneed DO Dictated Date: 10/24/2023 4:27:27 PM Prelim Date: 10/24/2023 4:28:48 PM Sign Date: 10/24/2023 4:28:48 PM Ordering Provider: REFUGIO HUTTON [facility] ([place]) Absolute lymphocyte countOrd ered By: Shashank Tai on 08-18-2023 Lymphocytes Auto (Unsp spec) [#/Vol] 2.67 10*3/uL 0.83-4.51 [facility] Automated lymphocyte count a s percentage of total leukocytesOrdered By: Shashank Tai on 08-18-2023 Lymphocytes/100 WBC Auto (Unsp spec) 35.9 % 19-41 [facility] Basophil percentageOrdered B y: Shashank Tai on 08-18-2023 Basophil percentage 14.7 g/dL 12.0-15.0 [facility] Basophil percentage 266 mg/dL 74-106 [facility] Basophil percentage 7.0 g/dL 6.4-8.2 [facility] Basophil percentage 0.40 mg/dL 0.20-1.00 [facility] Basophil percentage 137 mmol/L 136-145 [facility] Basophil percentage 4.0 mmol/L 3.5-5.1 [facility] Basophil percentage 105 mmol/L 98-107 [facility] Basophils (Bld) [#/Vol] 7.4 10*3/uL 4.4-11.0 [facility] Basophils (Bld) [#/Vol] 3.8 10*3/uL 2.0-7.7 [facility] Basophils/100 WBC (Bld) 1.3 % 0-1 [facility] Basophils/100 WBC (Bld) 51.5 % 47-70 [facility] Basophils/100 WBC (Bld) 7.9 % 0-10 [facility] Basophils/100 WBC (Bld) 2.6 % 0-5 [facility] Bilirubin [Mass/Vol] 0.40 mg/dL 0.20-1.00 [facility] Comment on above: For patients on eltr ombopag therapy, use of Dimension Matthews TBIL is not recommended. Chloride [Moles/Vol] 105 mmol/L 98-107 [facility] Eosinophils/100 WBC (Bld) 2.6 % 0-5 [facility] Glucose [Mass/Vol] 266 mg/dL 74-106 [facility] Comment on above: Glucose result great er than or equal to 200 mg/dLsuggests DIABETES MELLITUS per A.D.A. criteria. Hemoglobin (Bld) [Mass/Vol] 14.7 g/dL 12.0-15.0 [facility] Monocytes/100 WBC (Bld) 7.9 % 0-10 [facility] Neutrophils (Bld) [#/Vol] 3.8 10*3/uL 2.0-7.7 [facility] Neutrophils/100 WBC (Bld) 51.5 % 47-70 [facility] Potassium [Moles/Vol] 4.0 mmol/L 3.5-5.1 [facility] Protein [Mass/Vol] 7.0 g/dL 6.4-8.2 [facility] Sodium [Moles/Vol] 137 mmol/L 136-145 [facility] WBC (Bld) [#/Vol] 7.4 10*3/uL 4.4-11.0 [facility] Determination of erythrocyte mean corpuscular volume (MCV)Ordered By: Shashank Tai on 08-18-2023 MCV (RBC) [Entitic vol] 95.3 fL 81-99 [facility] Erythrocyte distribution wid th ratioOrdered By: Shashank Tai 08-18-2023 Erythrocyte distribution width (RBC) [Ratio] 14.0 % 11.6-14.6 [facility] Erythrocyte distribution wid th standard deviationOrdered By: Shashank Tai 08-18-2023 Erythrocyte distribution width (RBC) [Entitic vol] 49.3 fL 35.1-43.9 [facility] Hematocrit Auto (Bld) [Volum e fraction]Ordered By: Shashank Zaire 08-18-2023 Hematocrit (Bld) [Volume fraction] 44.6 % 37-47 [facility] Immature granulocytes/100 WB C Auto (Bld)Ordered By: Shashank Tai 08-18-2023 Immature granulocytes/100 WBC (Bld) 0.800 % 0.0-0.9 [facility] Comment on above: IG% - Immature Granu locytes (promyelocytes, myelocytes and metamyelocytes) > 1% indicates that a LEFT SHIFT is Present. Laboratory - Chemistry and C hemistry - challengeOrdered By: Shashank Tai on 08-18-2023 Albumin/Globulin [Mass ratio] 1.1 {ratio} 0.9-2.4 [facility] ALP [Catalytic activity/Vol] 93 U/L 45-117 [facility] ALT [Catalytic activity/Vol] 31 U/L 13-56 [facility] CO2 [Moles/Vol] 26.0 mmol/L 21.0-32.0 [facility] Globulin (S) [Mass/Vol] 3.4 g/dL 2.2-4.2 [facility] Urea nitrogen/Creatinine [Mass ratio] 18.0 mg/mg 10-20 [facility] Laboratory - Hematology and Cell countsOrdered By: Shashank Tai on 08-18-2023 MCH (RBC) [Entitic mass] 31.4 pg 27.0-32.0 [facility] MCHC (RBC) [Mass/Vol] 33.0 g/dL 32-36 [facility] Nucleated RBC/100 WBC (Bld) [Ratio] 0 % 0-5 [facility] Platelet mean volume (Bld) [Entitic vol] 10.3 fL 6.2-12.0 [facility] Platelets (Bld) [#/Vol] 402 10*3/uL 150-450 [facility] No Panel InformationOrdered By: Shashank Tai on 08-18-2023 Estimated GFR (MDRD) Amer 119 mL/min >60 [facility] Comment on above: GFR Calc Estimated GFR (MDRD) Non-Af Amer 98 mL/min >60 [facility] Comment on above: Non- GFR Calc 31.4 pg 27.0-32.0 [facility] 33.0 g/dL 32-36 [facility] 402 K/mm3 150-450 [facility] 10.3 fl 6.2-12.0 [facility] 0 % 0-5 [facility] 98 mL/min >60 [facility] 119 mL/min >60 [facility] 18.0 RATIO 10-20 [facility] 3.4 g/dL 2.2-4.2 [facility] 1.1 RATIO 0.9-2.4 [facility] 93 U/L 45-117 [facility] 31 U/L 13-56 [facility] 26.0 mmol/L 21.0-32.0 [facility] RBC Auto (Bld) [#/Vol]Ordere d By: Shashank Tai on 08-18-2023 RBC (Bld) [#/Vol] 4.68 10*6/uL 4.2-5.4 [facility] Serum or plasma calcium uche urement (mass/volume)Ordered By: Shashank Tai on 08-18-2023 Calcium [Mass/Vol] 9.7 mg/dL 8.5-10.1 [facility] Serum or plasma creatinine m easurement (mass/volume)Ordered By: Shashank Tai on 08-18-2023 Creatinine [Mass/Vol] 0.67 mg/dL 0.55-1.02 [facility] Comment on above: The validity of the calculated GFR & GFRAA in patients over 70 years has not been determined. Clinical correlation is essential. Serum or plasma thyroid stim ulating hormone (TSH) measurement (units/volume)Ordered By: Shashank Tai on 08-18-2023 TSH Qn 1.00 uIU/mL 0.358-3.74 [facility] Serum or plasma urea nitroge n measurement (mass/volume)Ordered By: Shashank Tai on 08-18-2023 Urea nitrogen [Mass/Vol] 12 mg/dL 7-18 [facility] Thin prep Papanicolaou smear with manual screeningOrdered By: Shashank Tai on 08-18-2023 Thin prep Papanicolaou smear with manual screening 3.6 g/dL 3.2-5.0 [facility] Thin prep Papanicolaou smear with manual screening 19 U/L 15-37 [facility] Thin prep Papanicolaou smear with manual screening 6 5-15 [facility] Absolute lymphocyte countOrd ered By: Lolis Ladd on 07-25-2023 Lymphocytes Auto (Unsp spec) [#/Vol] 2.82 10*3/uL 0.83-4.51 [facility] Automated lymphocyte count a s percentage of total leukocytesOrdered By: Lolis Ladd on 07-25-2023 Lymphocytes/100 WBC Auto (Unsp spec) 21.9 % 19-41 [facility] Basophil percentageOrdered B y: Lolis Ladd on 07-25-2023 Basophil percentage 16.6 g/dL 12.0-15.0 [facility] Basophil percentage 227 mg/dL 74-106 [facility] Basophil percentage 137 mmol/L 136-145 [facility] Basophil percentage 3.6 mmol/L 3.5-5.1 [facility] Basophil percentage 102 mmol/L 98-107 [facility] Basophils (Bld) [#/Vol] 12.9 10*3/uL 4.4-11.0 [facility] Basophils (Bld) [#/Vol] 9.0 10*3/uL 2.0-7.7 [facility] Basophils/100 WBC (Bld) 0.6 % 0-1 [facility] Basophils/100 WBC (Bld) 70.0 % 47-70 [facility] Basophils/100 WBC (Bld) 6.4 % 0-10 [facility] Chloride [Moles/Vol] 102 mmol/L 98-107 [facility] Eosinophils/100 WBC (Bld) 0.6 % 0-5 [facility] Glucose [Mass/Vol] 227 mg/dL 74-106 [facility] Comment on above: Glucose result great er than or equal to 200 mg/dLsuggests DIABETES MELLITUS per A.D.A. criteria. Hemoglobin (Bld) [Mass/Vol] 16.6 g/dL 12.0-15.0 [facility] Monocytes/100 WBC (Bld) 6.4 % 0-10 [facility] Neutrophils (Bld) [#/Vol] 9.0 10*3/uL 2.0-7.7 [facility] Neutrophils/100 WBC (Bld) 70.0 % 47-70 [facility] Potassium [Moles/Vol] 3.6 mmol/L 3.5-5.1 [facility] Sodium [Moles/Vol] 137 mmol/L 136-145 [facility] WBC (Bld) [#/Vol] 12.9 10*3/uL 4.4-11.0 [facility] Determination of erythrocyte mean corpuscular volume (MCV)Ordered By: Lolis Ladd on 07-25-2023 MCV (RBC) [Entitic vol] 93.0 fL 81-99 [facility] Erythrocyte distribution wid th ratioOrdered By: Lolis Ladd on 07-25-2023 Erythrocyte distribution width (RBC) [Ratio] 13.8 % 11.6-14.6 [facility] Erythrocyte distribution wid th standard deviationOrdered By: Lolis Ladd on 07-25-2023 Erythrocyte distribution width (RBC) [Entitic vol] 47.7 fL 35.1-43.9 [facility] Hematocrit Auto (Bld) [Volum e fraction]Ordered By: Lolis Ladd on 07-25-2023 Hematocrit (Bld) [Volume fraction] 49.0 % 37-47 [facility] Immature granulocytes/100 WB C Auto (Bld)Ordered By: Lolis Ladd on 07-25-2023 Immature granulocytes/100 WBC (Bld) 0.500 % 0.0-0.9 [facility] Comment on above: IG% - Immature Granu locytes (promyelocytes, myelocytes and metamyelocytes) > 1% indicates that a LEFT SHIFT is Present. Laboratory - Chemistry and C hemistry - challengeOrdered By: Lolis Ladd on 07-25-2023 CO2 [Moles/Vol] 25.0 mmol/L 21.0-32.0 [facility] Urea nitrogen/Creatinine [Mass ratio] 11.7 mg/mg 10-20 [facility] Laboratory - CoagulationOrde red By: Lolis Ladd on 07-25-2023 INR Coag (Bld) [Relative time] 2.4 {INR} [facility] PT Coag (PPP) [Time] 26.3 s 11.7-14.9 [facility] Laboratory - Hematology and Cell countsOrdered By: Lolis Ladd on 07-25-2023 MCH (RBC) [Entitic mass] 31.5 pg 27.0-32.0 [facility] MCHC (RBC) [Mass/Vol] 33.9 g/dL 32-36 [facility] Nucleated RBC/100 WBC (Bld) [Ratio] 0 % 0-5 [facility] Platelet mean volume (Bld) [Entitic vol] 10.1 fL 6.2-12.0 [facility] Platelets (Bld) [#/Vol] 417 10*3/uL 150-450 [facility] Laboratory - Microbiology an d Antimicrobial susceptibilityOrdered By: Lolis Ladd on 07-25-2023 SARS-CoV-2 (COVID-19) RNA RACHEL+probe Ql (Unsp spec) [facility] SARS-CoV-2 (COVID-19) RNA RACHEL+probe Ql (Unsp spec) [facility] No Panel InformationOrdered By: Lolis Ladd on 07-25-2023 Estimated Creatinine Clearance Calc 58.68 ml/min [facility] Estimated GFR (MDRD) Amer 60 mL/min >60 [facility] Comment on above: GFR Calc Estimated GFR (MDRD) Non-Af Amer 50 mL/min >60 [facility] Comment on above: Non- GFR Calc Troponin I High Sensitivity 4 pg/mL 3.0-54.0 [facility] Comment on above: Please Note: New Lo t Units and Gender Specific Reference Ranges. For more information see Policy Stat Procedure [facility] High Sensitivity Troponin (TNIH) and attachments. 31.5 pg 27.0-32.0 [facility] 33.9 g/dL 32-36 [facility] 417 K/mm3 150-450 [facility] 10.1 fl 6.2-12.0 [facility] 0 % 0-5 [facility] 26.3 SECONDS 11.7-14.9 [facility] 2.4 [facility] 50 mL/min >60 [facility] 60 mL/min >60 [facility] 58.68 ml/min [facility] 11.7 RATIO 10-20 [facility] 4 pg/mL 3.0-54.0 [facility] 25.0 mmol/L 21.0-32.0 [facility] RBC Auto (Bld) [#/Vol]Ordere d By: Lolis Ladd on 07-25-2023 RBC (Bld) [#/Vol] 5.27 10*6/uL 4.2-5.4 [facility] Serum or plasma calcium uche urement (mass/volume)Ordered By: Lolis Ladd on 07-25-2023 Calcium [Mass/Vol] 10.6 mg/dL 8.5-10.1 [facility] Serum or plasma creatinine m easurement (mass/volume)Ordered By: Lolis Ladd on 07-25-2023 Creatinine [Mass/Vol] 1.20 mg/dL 0.55-1.02 [facility] Comment on above: The validity of the calculated GFR & GFRAA in patients over 70 years has not been determined. Clinical correlation is essential. Serum or plasma urea nitroge n measurement (mass/volume)Ordered By: Lolis Ladd on 07-25-2023 Urea nitrogen [Mass/Vol] 14 mg/dL 7-18 [facility] Thin prep Papanicolaou smear with manual screeningOrdered By: Lolis Ladd on 07-25-2023 Thin prep Papanicolaou smear with manual screening 10 5-15 [facility] Helicobacter pylori breath t est in pediatric patientOrdered By: Shashank Tai on 07-11-2023 CO2 post dose urea Ql (Exhl gas) Negative Negative [facility] Comment on above: Performed at: [facility] [employer] [address] [id number] Director: Refugio Rose PhD, Phone: [phone] Laboratory - CoagulationOrde red By: Shashank Tai on 07-11-2023 INR Coag (Bld) [Relative time] 1.0 {INR} [facility] PT Coag (PPP) [Time] 13.0 s 11.7-14.9 [facility] No Panel InformationOrdered By: Shashank Tai on 07-11-2023 13.0 SECONDS 11.7-14.9 [facility] 1.0 [facility] Absolute lymphocyte countOrd ered By: Shashank Tai on 06-26-2023 Lymphocytes Auto (Unsp spec) [#/Vol] 2.52 10*3/uL 0.83-4.51 [facility] Automated lymphocyte count a s percentage of total leukocytesOrdered By: Shashank Tai on 06-26-2023 Lymphocytes/100 WBC Auto (Unsp spec) 20.8 % 19-41 [facility] Basophil percentageOrdered B y: Shashank Tai on 06-26-2023 Basophil percentage 15.5 g/dL 12.0-15.0 [facility] Basophils (Bld) [#/Vol] 12.1 10*3/uL 4.4-11.0 [facility] Basophils (Bld) [#/Vol] 7.9 10*3/uL 2.0-7.7 [facility] Basophils/100 WBC (Bld) 0.8 % 0-1 [facility] Basophils/100 WBC (Bld) 65.2 % 47-70 [facility] Basophils/100 WBC (Bld) 11.3 % 0-10 [facility] Basophils/100 WBC (Bld) 1.2 % 0-5 [facility] Eosinophils/100 WBC (Bld) 1.2 % 0-5 [facility] Hemoglobin (Bld) [Mass/Vol] 15.5 g/dL 12.0-15.0 [facility] Monocytes/100 WBC (Bld) 11.3 % 0-10 [facility] Neutrophils (Bld) [#/Vol] 7.9 10*3/uL 2.0-7.7 [facility] Neutrophils/100 WBC (Bld) 65.2 % 47-70 [facility] WBC (Bld) [#/Vol] 12.1 10*3/uL 4.4-11.0 [facility] Basophil percentage 183 mg/dL 74-106 [facility] Basophil percentage 7.5 g/dL 6.4-8.2 [facility] Basophil percentage 0.60 mg/dL 0.20-1.00 [facility] Basophil percentage 136 mmol/L 136-145 [facility] Basophil percentage 3.6 mmol/L 3.5-5.1 [facility] Basophil percentage 102 mmol/L 98-107 [facility] Bilirubin [Mass/Vol] 0.60 mg/dL 0.20-1.00 [facility] Comment on above: For patients on eltr ombopag therapy, use of Dimension Matthews TBIL is not recommended. Chloride [Moles/Vol] 102 mmol/L 98-107 [facility] Glucose [Mass/Vol] 183 mg/dL 74-106 [facility] Comment on above: Fasting Glucose resu lt greater than or equal to 126 mg/dL suggests DIABETES MELLITUS per A.D.A. criteria. Potassium [Moles/Vol] 3.6 mmol/L 3.5-5.1 [facility] Protein [Mass/Vol] 7.5 g/dL 6.4-8.2 [facility] Sodium [Moles/Vol] 136 mmol/L 136-145 [facility] Determination of erythrocyte mean corpuscular volume (MCV)Ordered By: Shashank Tai on 06-26-2023 MCV (RBC) [Entitic vol] 94.4 fL 81-99 [facility] Erythrocyte distribution wid th ratioOrdered By: [facility] on 06-26-2023 Erythrocyte distribution width (RBC) [Ratio] 14.8 % 11.6-14.6 [facility] Erythrocyte distribution wid th standard deviationOrdered By: [facility] on 06-26-2023 Erythrocyte distribution width (RBC) [Entitic vol] 51.5 fL 35.1-43.9 [facility] Hematocrit Auto (Bld) [Volum e fraction]Ordered By: [facility] on 06-26-2023 Hematocrit (Bld) [Volume fraction] 47.3 % 37-47 [facility] Immature granulocytes/100 WB C Auto (Bld)Ordered By: [facility] on 06-26-2023 Immature granulocytes/100 WBC (Bld) 0.700 % 0.0-0.9 [facility] Comment on above: IG% - Immature Granu locytes (promyelocytes, myelocytes and metamyelocytes) > 1% indicates that a LEFT SHIFT is Present. International normalized rat io (INR) calculationOrdered By: Lolis Ladd on 06-26-2023 INR Coag (PPP) [Relative time] 4.5 {INR} [facility] Comment on above: CRITICAL VALUE VERIF IED. CALLED TO MEGAN [id number] Meagan Bey.RESULTS READ BACK BY SAME . Laboratory - Chemistry and C hemistry - challengeOrdered By: [facility] on 06-26-2023 Albumin/Globulin [Mass ratio] 0.9 {ratio} 0.9-2.4 [facility] ALP [Catalytic activity/Vol] 76 U/L 45-117 [facility] ALT [Catalytic activity/Vol] 26 U/L 13-56 [facility] CO2 [Moles/Vol] 25.0 mmol/L 21.0-32.0 [facility] Globulin (S) [Mass/Vol] 3.9 g/dL 2.2-4.2 [facility] Urea nitrogen/Creatinine [Mass ratio] 20.3 mg/mg 10-20 [facility] Laboratory - CoagulationOrde red By: Lolis Ladd on 06-26-2023 PT Coag (PPP) [Time] 43.8 s 11.7-14.9 [facility] Laboratory - Hematology and Cell countsOrdered By: Shashank Tai on 06-26-2023 MCH (RBC) [Entitic mass] 30.9 pg 27.0-32.0 [facility] MCHC (RBC) [Mass/Vol] 32.8 g/dL 32-36 [facility] Nucleated RBC/100 WBC (Bld) [Ratio] 0 % 0-5 [facility] Platelets (Bld) [#/Vol] 386 10*3/uL 150-450 [facility] No Panel InformationOrdered By: Lolis Ladd on 06-26-2023 Troponin I High Sensitivity 4 pg/mL 3.0-54.0 [facility] Comment on above: Please Note: New Lo t Units and Gender Specific Reference Ranges. For more information see Policy Stat Procedure [facility] High Sensitivity Troponin (TNIH) and attachments. 4 pg/mL 3.0-54.0 [facility] 43.8 SECONDS 11.7-14.9 [facility] No Panel InformationOrdered By: Shashank Tai on 06-26-2023 30.9 pg 27.0-32.0 [facility] 32.8 g/dL 32-36 [facility] 386 K/mm3 150-450 [facility] 0 % 0-5 [facility] Estimated GFR (MDRD) Amer 125 mL/min >60 [facility] Comment on above: GFR Calc Estimated GFR (MDRD) Non-Af Amer 103 mL/min >60 [facility] Comment on above: Non- GFR Calc 103 mL/min >60 [facility] 125 mL/min >60 [facility] 20.3 RATIO 10-20 [facility] 3.9 g/dL 2.2-4.2 [facility] 0.9 RATIO 0.9-2.4 [facility] 76 U/L 45-117 [facility] 26 U/L 13-56 [facility] 25.0 mmol/L 21.0-32.0 [facility] Platelet mean volume Aiden-Ec ker (Bld) [Entitic vol]Ordered By: Shashank Tai on 06-26-2023 Platelet mean volume (Bld) [Entitic vol] 10.0 fL 6.2-12.0 [facility] RBC Auto (Bld) [#/Vol]Ordere d By: Shashank Tai on 06-26-2023 RBC (Bld) [#/Vol] 5.01 10*6/uL 4.2-5.4 [facility] Serum or plasma calcium uche urement (mass/volume)Ordered By: Shashank Tai on 06-26-2023 Calcium [Mass/Vol] 10.0 mg/dL 8.5-10.1 [facility] Serum or plasma creatinine m easurement (mass/volume)Ordered By: Shashank Tai on 06-26-2023 Creatinine [Mass/Vol] 0.64 mg/dL 0.55-1.02 [facility] Comment on above: The validity of the calculated GFR & GFRAA in patients over 70 years has not been determined. Clinical correlation is essential. Serum or plasma urea nitroge n measurement (mass/volume)Ordered By: Shashank Tai on 06-26-2023 Urea nitrogen [Mass/Vol] 13 mg/dL 7-18 [facility] Thin prep Papanicolaou smear with manual screeningOrdered By: Shashank Tai on 06-26-2023 Thin prep Papanicolaou smear with manual screening 3.6 g/dL 3.2-5.0 [facility] Thin prep Papanicolaou smear with manual screening 15 U/L 15-37 [facility] Thin prep Papanicolaou smear with manual screening 9 5-15 [facility] Absolute lymphocyte countOrd ered By: Shashank Tai on 06-13-2023 Lymphocytes Auto (Unsp spec) [#/Vol] 3.47 10*3/uL 0.83-4.51 [facility] Basophil percentageOrdered B y: Shashank Tai on 06-13-2023 Basophil percentage 267 mg/dL 74-106 [facility] Basophil percentage 133 mmol/L 136-145 [facility] Basophil percentage 3.5 mmol/L 3.5-5.1 [facility] Basophil percentage 99 mmol/L 98-107 [facility] Basophils (Bld) [#/Vol] 14.2 10*3/uL 4.4-11.0 [facility] Basophils (Bld) [#/Vol] 9.3 10*3/uL 2.0-7.7 [facility] Basophils/100 WBC (Bld) 1.1 % 0-1 [facility] Basophils/100 WBC (Bld) 65.1 % 47-70 [facility] Basophils/100 WBC (Bld) 0.8 % 0-5 [facility] Chloride [Moles/Vol] 99 mmol/L 98-107 [facility] Eosinophils/100 WBC (Bld) 0.8 % 0-5 [facility] Glucose [Mass/Vol] 267 mg/dL 74-106 [facility] Comment on above: Glucose result great er than or equal to 200 mg/dLsuggests DIABETES MELLITUS per A.D.A. criteria. Neutrophils (Bld) [#/Vol] 9.3 10*3/uL 2.0-7.7 [facility] Neutrophils/100 WBC (Bld) 65.1 % 47-70 [facility] Potassium [Moles/Vol] 3.5 mmol/L 3.5-5.1 [facility] Sodium [Moles/Vol] 133 mmol/L 136-145 [facility] WBC (Bld) [#/Vol] 14.2 10*3/uL 4.4-11.0 [facility] Blood erythrocytes count (nu mber/volume)Ordered By: Shashank Tai on 06-13-2023 RBC (Bld) [#/Vol] 5.17 10*6/uL 4.2-5.4 [facility] Blood hemoglobin measurement (mass/volume)Ordered By: Shashank Tai on 06-13-2023 Hemoglobin (Bld) [Mass/Vol] 15.9 g/dL 12.0-15.0 [facility] Blood lymphocytes/100 leukoc ytesOrdered By: Shashank Tai on 06-13-2023 Lymphocytes/100 WBC (Bld) 24.4 % 19-41 [facility] Blood monocytes/100 leukocyt esOrdered By: Shashank Tai on 06-13-2023 Monocytes/100 WBC (Bld) 7.4 % 0-10 [facility] Blood platelet mean volumeOr dered By: Shashank Tai on 06-13-2023 Platelet mean volume (Bld) [Entitic vol] 9.7 fL 6.2-12.0 [facility] Determination of erythrocyte mean corpuscular volume (MCV)Ordered By: Shashank Tai on 06-13-2023 MCV (RBC) [Entitic vol] 91.9 fL 81-99 [facility] Hematocrit Auto (Bld) [Volum e fraction]Ordered By: Shashank Tai on 06-13-2023 Hematocrit (Bld) [Volume fraction] 47.5 % 37-47 [facility] Laboratory - Chemistry and C hemistry - challengeOrdered By: Shashank Tai on 06-13-2023 CO2 [Moles/Vol] 23.0 mmol/L 21.0-32.0 [facility] Urea nitrogen/Creatinine [Mass ratio] 24.3 mg/mg 10-20 [facility] Laboratory - Hematology and Cell countsOrdered By: Shashank Tai on 06-13-2023 Erythrocyte distribution width (RBC) [Entitic vol] 46.6 fL 35.1-43.9 [facility] Erythrocyte distribution width (RBC) [Ratio] 13.6 % 11.6-14.6 [facility] Immature granulocytes/100 WBC (Bld) 1.200 % 0.0-0.9 [facility] Comment on above: IG% - Immature Granu locytes (promyelocytes, myelocytes and metamyelocytes) > 1% indicates that a LEFT SHIFT is Present. MCH (RBC) [Entitic mass] 30.8 pg 27.0-32.0 [facility] Nucleated RBC/100 WBC (Bld) [Ratio] 0 % 0-5 [facility] MCHC Auto (RBC) [Mass/Vol]Or dered By: Shashank Tai on 06-13-2023 MCHC (RBC) [Mass/Vol] 33.5 g/dL 32-36 [facility] No Panel InformationOrdered By: Shashank Tai on 06-13-2023 Estimated GFR (MDRD) Amer 93 mL/min >60 [facility] Comment on above: GFR Calc Estimated GFR (MDRD) Non-Af Amer 77 mL/min >60 [facility] Comment on above: Non- GFR Calc 30.8 pg 27.0-32.0 [facility] 13.6 % 11.6-14.6 [facility] 46.6 fl 35.1-43.9 [facility] 1.200 % 0.0-0.9 [facility] 0 % 0-5 [facility] 77 mL/min >60 [facility] 93 mL/min >60 [facility] 24.3 RATIO 10-20 [facility] 23.0 mmol/L 21.0-32.0 [facility] Platelets bldOrdered By: Shashank Tai on 06-13-2023 Platelets (Bld) [#/Vol] 467 10*3/uL 150-450 [facility] Serum or plasma calcium uche urement (mass/volume)Ordered By: Shashank Tai on 06-13-2023 Calcium [Mass/Vol] 9.3 mg/dL 8.5-10.1 [facility] Serum or plasma creatinine m easurement (mass/volume)Ordered By: Shashank Tai on 06-13-2023 Creatinine [Mass/Vol] 0.82 mg/dL 0.55-1.02 [facility] Comment on above: The validity of the calculated GFR & GFRAA in patients over 70 years has not been determined. Clinical correlation is essential. Serum or plasma urea nitroge n measurement (mass/volume)Ordered By: Shashank Tai on 06-13-2023 Urea nitrogen [Mass/Vol] 20 mg/dL 7-18 [facility] Thin prep Papanicolaou smear with manual screeningOrdered By: Shashank Tai on 06-13-2023 Thin prep Papanicolaou smear with manual screening 11 5-15 [facility] Absolute lymphocyte countOrd ered By: Vilma Hernandez on 06-10-2023 Lymphocytes Auto (Unsp spec) [#/Vol] 2.84 10*3/uL 0.83-4.51 [facility] Basophil percentageOrdered B y: Vilma Hernandez on 06-10-2023 Basophil percentage 297 mg/dL 74-106 [facility] Basophil percentage 6.5 g/dL 6.4-8.2 [facility] Basophil percentage 0.70 mg/dL 0.20-1.00 [facility] Basophil percentage 135 mmol/L 136-145 [facility] Basophil percentage 3.8 mmol/L 3.5-5.1 [facility] Basophil percentage 105 mmol/L 98-107 [facility] Basophils (Bld) [#/Vol] 17.2 10*3/uL 4.4-11.0 [facility] Basophils (Bld) [#/Vol] 13.1 10*3/uL 2.0-7.7 [facility] Basophils/100 WBC (Bld) 0.9 % 0-1 [facility] Basophils/100 WBC (Bld) 76.1 % 47-70 [facility] Basophils/100 WBC (Bld) 0.2 % 0-5 [facility] Bilirubin [Mass/Vol] 0.70 mg/dL 0.20-1.00 [facility] Comment on above: For patients on eltr ombopag therapy, use of Dimension Matthews TBIL is not recommended. Chloride [Moles/Vol] 105 mmol/L 98-107 [facility] Eosinophils/100 WBC (Bld) 0.2 % 0-5 [facility] Glucose [Mass/Vol] 297 mg/dL 74-106 [facility] Comment on above: Glucose result great er than or equal to 200 mg/dLsuggests DIABETES MELLITUS per A.D.A. criteria. Neutrophils (Bld) [#/Vol] 13.1 10*3/uL 2.0-7.7 [facility] Neutrophils/100 WBC (Bld) 76.1 % 47-70 [facility] Potassium [Moles/Vol] 3.8 mmol/L 3.5-5.1 [facility] Protein [Mass/Vol] 6.5 g/dL 6.4-8.2 [facility] Sodium [Moles/Vol] 135 mmol/L 136-145 [facility] WBC (Bld) [#/Vol] 17.2 10*3/uL 4.4-11.0 [facility] Basophil percentage 0-5 SEEN /hpf 0-5 [facility] Bilirubin Test strip Ql (U)O rdered By: Vilma Hernandez on 06-10-2023 Bilirubin Ql (U) Negative Negative [facility] Blood erythrocytes count (nu mber/volume)Ordered By: Vilma Hernandez on 06-10-2023 RBC (Bld) [#/Vol] 4.66 10*6/uL 4.2-5.4 [facility] Blood hemoglobin measurement (mass/volume)Ordered By: Vilma Hernandez on 06-10-2023 Hemoglobin (Bld) [Mass/Vol] 14.8 g/dL 12.0-15.0 [facility] Blood lymphocytes/100 leukoc ytesOrdered By: Vilma Hernandez on 06-10-2023 Lymphocytes/100 WBC (Bld) 16.5 % 19-41 [facility] Blood monocytes/100 leukocyt esOrdered By: Vilma Hernandez on 06-10-2023 Monocytes/100 WBC (Bld) 4.1 % 0-10 [facility] Blood platelet mean volumeOr dered By: Vilma Hernandez on 06-10-2023 Platelet mean volume (Bld) [Entitic vol] 9.5 fL 6.2-12.0 [facility] Clostridioides difficile nuc leic acid assay by PCROrdered By: Vilma Hernandez on 06-10-2023 C. difficile DNA RACHEL+probe Ql (Unsp spec) [facility] Clostridium difficile detect ion by polymerase chain reactionOrdered By: Vilma Hernandez on 06-10-2023 C. difficile DNA RACHEL+probe Ql (Unsp spec) [facility] Determination of erythrocyte mean corpuscular volume (MCV)Ordered By: Vilma Hernandez on 06-10-2023 MCV (RBC) [Entitic vol] 90.3 fL 81-99 [facility] Hematocrit Auto (Bld) [Volum e fraction]Ordered By: Vilma Hernandez on 06-10-2023 Hematocrit (Bld) [Volume fraction] 42.1 % 37-47 [facility] Ketones Test strip Ql (U)Ord ered By: Vilma Hernandez on 06-10-2023 Ketones Ql (U) Negative Negative [facility] Laboratory - Chemistry and C hemistry - challengeOrdered By: Vilma Hernandez on 06-10-2023 ALP [Catalytic activity/Vol] 100 U/L 45-117 [facility] ALT [Catalytic activity/Vol] 21 U/L 13-56 [facility] CO2 [Moles/Vol] 27.0 mmol/L 21.0-32.0 [facility] Globulin (S) [Mass/Vol] 3.2 g/dL 2.2-4.2 [facility] Lipase [Catalytic activity/Vol] 13 U/L 13-75 [facility] Comment on above: Please note:LIPASE r evised reference range effective 22. New Lipase methodology. Expected to produce lower values than the previous assay method. NEW Reference Range: 13 - 75 U/L Urea nitrogen/Creatinine [Mass ratio] 21.9 mg/mg 10-20 [facility] Laboratory - Hematology and Cell countsOrdered By: Vilma Hernandez on 06-10-2023 Erythrocyte distribution width (RBC) [Entitic vol] 46.1 fL 35.1-43.9 [facility] Erythrocyte distribution width (RBC) [Ratio] 13.9 % 11.6-14.6 [facility] Immature granulocytes/100 WBC (Bld) 2.200 % 0.0-0.9 [facility] Comment on above: IG% - Immature Granu locytes (promyelocytes, myelocytes and metamyelocytes) > 1% indicates that a LEFT SHIFT is Present. MCH (RBC) [Entitic mass] 31.8 pg 27.0-32.0 [facility] Nucleated RBC/100 WBC (Bld) [Ratio] 0 % 0-5 [facility] MCHC Auto (RBC) [Mass/Vol]Or dered By: Vilma Hernandez on 06-10-2023 MCHC (RBC) [Mass/Vol] 35.2 g/dL 32-36 [facility] Mucus LM Ql (Urine sed)Order ed By: Vilma Hernandez on 06-10-2023 Mucus Ql (Urine sed) 0 SEEN /hpf [facility] Nitrite Test strip Ql (U)Ord ered By: Vilma Hernandez on 06-10-2023 Nitrite Ql (U) Negative Negative [facility] No Panel InformationOrdered By: Vilma Hernandez on 06-10-2023 Estimated Creatinine Clearance Calc 90.61 ml/min [facility] Estimated GFR (MDRD) Amer 94 mL/min >60 [facility] Comment on above: GFR Calc Estimated GFR (MDRD) Non-Af Amer 77 mL/min >60 [facility] Comment on above: Non- GFR Calc 31.8 pg 27.0-32.0 [facility] 13.9 % 11.6-14.6 [facility] 46.1 fl 35.1-43.9 [facility] 2.200 % 0.0-0.9 [facility] 0 % 0-5 [facility] 77 mL/min >60 [facility] 94 mL/min >60 [facility] 90.61 ml/min [facility] 21.9 RATIO 10-20 [facility] 3.2 g/dL 2.2-4.2 [facility] 13 U/L 13-75 [facility] 100 U/L 45-117 [facility] 21 U/L 13-56 [facility] 27.0 mmol/L 21.0-32.0 [facility] No Panel Informationon 06-10 Influenza Types A,B Rapid (Clinic) Negative [facility] Negative [facility] POC SARS CoV-2 Antigen Negative [facility] Negative [facility] Platelets bldOrdered By: Jese Hernandez on 06-10-2023 Platelets (Bld) [#/Vol] 435 10*3/uL 150-450 [facility] Protein Test strip Ql (U)Ord ered By: Vilma Hernandez on 06-10-2023 Protein Ql (U) Negative Negative [facility] Serum or plasma albumin uche urement (mass/volume)Ordered By: Vilma Hernandez on 06-10-2023 Albumin [Mass/Vol] 3.3 g/dL 3.2-5.0 [facility] Serum or plasma albumin/glob ulin mass ratioOrdered By: Vilma Hernandez on 06-10-2023 Albumin/Globulin [Mass ratio] 1.0 {ratio} 0.9-2.4 [facility] Serum or plasma calcium uche urement (mass/volume)Ordered By: Vilma Hernandez on 06-10-2023 Calcium [Mass/Vol] 9.7 mg/dL 8.5-10.1 [facility] Serum or plasma creatinine m easurement (mass/volume)Ordered By: Vilma Hernandez on 06-10-2023 Creatinine [Mass/Vol] 0.82 mg/dL 0.55-1.02 [facility] Comment on above: The validity of the calculated GFR & GFRAA in patients over 70 years has not been determined. Clinical correlation is essential. Serum or plasma urea nitroge n measurement (mass/volume)Ordered By: Vilma Hernandez on 06-10-2023 Urea nitrogen [Mass/Vol] 18 mg/dL 7-18 [facility] Squamous epithelial cells de tection in urine sediment by light microscopyOrdered By: Vilma Hernandez on 06-10-2023 Epithelial cells.squamous LM Ql (Urine sed) 0-5 SEEN /hpf 5-10 [facility] Thin prep Papanicolaou smear with manual screeningOrdered By: Vilma Hernandez on 06-10-2023 Thin prep Papanicolaou smear with manual screening 13 U/L 15-37 [facility] Thin prep Papanicolaou smear with manual screening 3 5-15 [facility] Urine blood detectionOrdered By: Vilma Hernandez on 06-10-2023 RBC Ql (U) 10 /ul Negative [facility] RBC Ql (U) 0-5 SEEN /hpf 0-5 [facility] Urine clarityOrdered By: Jese Hernandez on 06-10-2023 Clarity (U) Clear Clear [facility] Urine color determinationOrd ered By: Vilma Hernandez on 06-10-2023 Color (U) Yellow Yellow [facility] Urine glucose detectionOrder ed By: Vilma Hernandez on 06-10-2023 Glucose Ql (U) 1000 mg/dl Normal [facility] Urine leukocyte esterase det ection by dipstickOrdered By: Vilma Hernandez on 06-10-2023 Leukocyte esterase Test strip Ql (U) Negative Negative [facility] Urine pHOrdered By: Lennox Hernandez on 06-10-2023 pH (U) 6.0 [pH] 5.0 - 8.0 [facility] Urine sediment bacteria coun t by microscopy (number/high power field)Ordered By: Vilma Hernandez on 06-10-2023 Bacteria LM.HPF (Urine sed) [#/Area] 0 /[HPF] None Seen [facility] Urine specific gravity measu rementOrdered By: Vilma Hernandez on 06-10-2023 Specific gravity (U) [Rel density] 1.010 1.002-1.030 [facility] Urobilinogen Auto test strip Ql (U)Ordered By: Vilma Hernandez on 06-10-2023 Urobilinogen Ql (U) Normal mg/dl Normal [facility] Absolute lymphocyte countOrd ered By: Abrahan Herrera on 2023 Lymphocytes Auto (Unsp spec) [#/Vol] 1.41 10*3/uL 0.83-4.51 [facility] Basophil percentageOrdered B y: Abrahan Herrera on 2023 Basophil percentage 179 mg/dL 74-106 [facility] Basophil percentage 139 mmol/L 136-145 [facility] Basophil percentage 3.7 mmol/L 3.5-5.1 [facility] Basophil percentage 107 mmol/L 98-107 [facility] Basophils (Bld) [#/Vol] 5.4 10*3/uL 4.4-11.0 [facility] Basophils (Bld) [#/Vol] 3.2 10*3/uL 2.0-7.7 [facility] Basophils/100 WBC (Bld) 1.1 % 0-1 [facility] Basophils/100 WBC (Bld) 59.3 % 47-70 [facility] Basophils/100 WBC (Bld) 1.8 % 0-5 [facility] Chloride [Moles/Vol] 107 mmol/L 98-107 [facility] Eosinophils/100 WBC (Bld) 1.8 % 0-5 [facility] Glucose [Mass/Vol] 179 mg/dL 74-106 [facility] Comment on above: Fasting Glucose resu lt greater than or equal to 126 mg/dL suggests DIABETES MELLITUS per A.D.A. criteria. Neutrophils (Bld) [#/Vol] 3.2 10*3/uL 2.0-7.7 [facility] Neutrophils/100 WBC (Bld) 59.3 % 47-70 [facility] Potassium [Moles/Vol] 3.7 mmol/L 3.5-5.1 [facility] Sodium [Moles/Vol] 139 mmol/L 136-145 [facility] WBC (Bld) [#/Vol] 5.4 10*3/uL 4.4-11.0 [facility] Blood erythrocytes count (nu mber/volume)Ordered By: Abrahan Herrera on 2023 RBC (Bld) [#/Vol] 4.65 10*6/uL 4.2-5.4 [facility] Blood hemoglobin measurement (mass/volume)Ordered By: Abrahan Herrera on 2023 Hemoglobin (Bld) [Mass/Vol] 14.3 g/dL 12.0-15.0 [facility] Blood lymphocytes/100 leukoc ytesOrdered By: Abrahan Herrera on 2023 Lymphocytes/100 WBC (Bld) 26.0 % 19-41 [facility] Blood monocytes/100 leukocyt esOrdered By: Abrahan Herrera on 2023 Monocytes/100 WBC (Bld) 11.4 % 0-10 [facility] Blood platelet mean volumeOr dered By: Abrahan Herrera on 2023 Platelet mean volume (Bld) [Entitic vol] 9.6 fL 6.2-12.0 [facility] Determination of erythrocyte mean corpuscular volume (MCV)Ordered By: Abrahan Herrera on 2023 MCV (RBC) [Entitic vol] 94.2 fL 81-99 [facility] Hematocrit Auto (Bld) [Volum e fraction]Ordered By: Abrahan Herrera on 2023 Hematocrit (Bld) [Volume fraction] 43.8 % 37-47 [facility] INR in Blood by Coagulation assayOrdered By: Abrahan Herrera on 2023 INR Coag (Bld) [Relative time] 2.1 {INR} [facility] Laboratory - Chemistry and C hemistry - challengeOrdered By: Abrahan Herrera on 2023 CO2 [Moles/Vol] 31.0 mmol/L 21.0-32.0 [facility] Natriuretic peptide B (Bld) [Mass/Vol] 42.2 pg/mL 0-100 [facility] Urea nitrogen/Creatinine [Mass ratio] 14.8 mg/mg 10-20 [facility] Laboratory - CoagulationOrde red By: Abrahan Herrera on 2023 PT Coag (PPP) [Time] 23.7 s 11.7-14.9 [facility] Laboratory - Hematology and Cell countsOrdered By: Abrahan Herrera on 2023 Erythrocyte distribution width (RBC) [Entitic vol] 49.4 fL 35.1-43.9 [facility] Erythrocyte distribution width (RBC) [Ratio] 14.5 % 11.6-14.6 [facility] Immature granulocytes/100 WBC (Bld) 0.400 % 0.0-0.9 [facility] Comment on above: IG% - Immature Granu locytes (promyelocytes, myelocytes and metamyelocytes) > 1% indicates that a LEFT SHIFT is Present. MCH (RBC) [Entitic mass] 30.8 pg 27.0-32.0 [facility] Nucleated RBC/100 WBC (Bld) [Ratio] 0 % 0-5 [facility] Laboratory - Microbiology an d Antimicrobial susceptibilityOrdered By: Abrahan Herrera on 2023 SARS-CoV-2 (COVID-19) RNA RACHEL+probe Ql (Unsp spec) RSV [facility] SARS-CoV-2 (COVID-19) RNA RACHEL+probe Ql (Unsp spec) RSV [facility] MCHC Auto (RBC) [Mass/Vol]Or dered By: Abrahan Herrera on 2023 MCHC (RBC) [Mass/Vol] 32.6 g/dL 32-36 [facility] No Panel InformationOrdered By: Abrahan Herrera on 2023 Estimated Creatinine Clearance Calc 82.31 ml/min [facility] Estimated GFR (MDRD) Amer 105 mL/min >60 [facility] Comment on above: GFR Calc Estimated GFR (MDRD) Non-Af Amer 87 mL/min >60 [facility] Comment on above: Non- GFR Calc Troponin I High Sensitivity 6 pg/mL 3.0-54.0 [facility] Comment on above: Please Note: New Lo t Units and Gender Specific Reference Ranges. For more information see Policy Stat Procedure [facility] High Sensitivity Troponin (TNIH) and attachments. 30.8 pg 27.0-32.0 [facility] 14.5 % 11.6-14.6 [facility] 49.4 fl 35.1-43.9 [facility] 0.400 % 0.0-0.9 [facility] 0 % 0-5 [facility] 23.7 SECONDS 11.7-14.9 [facility] 87 mL/min >60 [facility] 105 mL/min >60 [facility] 82.31 ml/min [facility] 14.8 RATIO 10-20 [facility] 6 pg/mL 3.0-54.0 [facility] 31.0 mmol/L 21.0-32.0 [facility] 42.2 pg/mL 0-100 [facility] RSV [facility] Platelets bldOrdered By: Favio Herrera on 2023 Platelets (Bld) [#/Vol] 269 10*3/uL 150-450 [facility] Serum or plasma calcium uche urement (mass/volume)Ordered By: Abrahan Herrera on 2023 Calcium [Mass/Vol] 9.6 mg/dL 8.5-10.1 [facility] Serum or plasma creatinine m easurement (mass/volume)Ordered By: Abrahan Herrera on 2023 Creatinine [Mass/Vol] 0.74 mg/dL 0.55-1.02 [facility] Comment on above: The validity of the calculated GFR & GFRAA in patients over 70 years has not been determined. Clinical correlation is essential. Serum or plasma urea nitroge n measurement (mass/volume)Ordered By: Abrahan Herrera on 2023 Urea nitrogen [Mass/Vol] 11 mg/dL 7-18 [facility] Thin prep Papanicolaou smear with manual screeningOrdered By: Abrahan Herrera on 2023 Thin prep Papanicolaou smear with manual screening 1 5-15 [facility] Absolute lymphocyte countOrd ered By: Shashank Tai on 05-20-2023 Lymphocytes Auto (Unsp spec) [#/Vol] 3.29 10*3/uL 0.83-4.51 [facility] Basophil percentageOrdered B y: Shashank Tai on 05-20-2023 Basophil percentage 197 mg/dL 74-106 [facility] Basophil percentage 6.9 g/dL 6.4-8.2 [facility] Basophil percentage 0.50 mg/dL 0.20-1.00 [facility] Basophil percentage 139 mmol/L 136-145 [facility] Basophil percentage 3.7 mmol/L 3.5-5.1 [facility] Basophil percentage 105 mmol/L 98-107 [facility] Basophils (Bld) [#/Vol] 12.3 10*3/uL 4.4-11.0 [facility] Basophils (Bld) [#/Vol] 7.5 10*3/uL 2.0-7.7 [facility] Basophils/100 WBC (Bld) 1.4 % 0-1 [facility] Basophils/100 WBC (Bld) 60.4 % 47-70 [facility] Basophils/100 WBC (Bld) 1.5 % 0-5 [facility] Bilirubin [Mass/Vol] 0.50 mg/dL 0.20-1.00 [facility] Comment on above: For patients on eltr ombopag therapy, use of Dimension [facility] TBIL is not recommended. Chloride [Moles/Vol] 105 mmol/L 98-107 [facility] Eosinophils/100 WBC (Bld) 1.5 % 0-5 [facility] Glucose [Mass/Vol] 197 mg/dL 74-106 [facility] Comment on above: Fasting Glucose resu lt greater than or equal to 126 mg/dL suggests DIABETES MELLITUS per A.D.A. criteria. Neutrophils (Bld) [#/Vol] 7.5 10*3/uL 2.0-7.7 [facility] Neutrophils/100 WBC (Bld) 60.4 % 47-70 [facility] Potassium [Moles/Vol] 3.7 mmol/L 3.5-5.1 [facility] Protein [Mass/Vol] 6.9 g/dL 6.4-8.2 [facility] Sodium [Moles/Vol] 139 mmol/L 136-145 [facility] [facility] (Bld) [#/Vol] 12.3 10*3/uL 4.4-11.0 [facility] Blood erythrocytes count (nu mber/volume)Ordered By: Shashank Tai on 05-20-2023 RBC (Bld) [#/Vol] 4.84 10*6/uL 4.2-5.4 [facility] Blood hemoglobin measurement (mass/volume)Ordered By: Shashank Tai on 05-20-2023 Hemoglobin (Bld) [Mass/Vol] 14.9 g/dL 12.0-15.0 [facility] Blood lymphocytes/100 leukoc ytesOrdered By: [facility] on 05-20-2023 Lymphocytes/100 WBC (Bld) 26.7 % 19-41 [facility] Blood monocytes/100 leukocyt esOrdered By: [facility] on 05-20-2023 Monocytes/100 WBC (Bld) 8.3 % 0-10 [facility] Blood platelet mean volumeOr dered By: [facility] on 05-20-2023 Platelet mean volume (Bld) [Entitic vol] 10.4 fL 6.2-12.0 [facility] Determination of erythrocyte mean corpuscular volume (MCV)Ordered By: Shashank Tai on 05-20-2023 MCV (RBC) [Entitic vol] 92.8 fL 81-99 [facility] Hematocrit Auto (Bld) [Volum e fraction]Ordered By: Shashank Tai on 05-20-2023 Hematocrit (Bld) [Volume fraction] 44.9 % 37-47 [facility] Laboratory - Chemistry and C hemistry - challengeOrdered By: [facility] on 05-20-2023 ALP [Catalytic activity/Vol] 86 U/L 45-117 [facility] ALT [Catalytic activity/Vol] 30 U/L 13-56 [facility] CO2 [Moles/Vol] 27.0 mmol/L 21.0-32.0 [facility] Globulin (S) [Mass/Vol] 3.2 g/dL 2.2-4.2 [facility] Urea nitrogen/Creatinine [Mass ratio] 32.1 mg/mg 10-20 [facility] Laboratory - Hematology and Cell countsOrdered By: Shashank Tai on 05-20-2023 Erythrocyte distribution width (RBC) [Entitic vol] 48.9 fL 35.1-43.9 [facility] Erythrocyte distribution width (RBC) [Ratio] 14.4 % 11.6-14.6 [facility] Immature granulocytes/100 WBC (Bld) 1.700 % 0.0-0.9 [facility] Comment on above: IG% - Immature Granu locytes (promyelocytes, myelocytes and metamyelocytes) > 1% indicates that a LEFT SHIFT is Present. MCH (RBC) [Entitic mass] 30.8 pg 27.0-32.0 [facility] Nucleated RBC/100 WBC (Bld) [Ratio] 0 % 0-5 [facility] MCHC Auto (RBC) [Mass/Vol]Or dered By: Shashank Tai on 05-20-2023 MCHC (RBC) [Mass/Vol] 33.2 g/dL 32-36 [facility] No Panel InformationOrdered By: Shashank Tai on 05-20-2023 Estimated GFR (MDRD) Amer 100 mL/min >60 [facility] Comment on above: GFR Calc Estimated GFR (MDRD) Non-Af Amer 82 mL/min >60 [facility] Comment on above: Non- GFR Calc Thyroid Stimulating Hormone (TSH) 1.94 uIU/mL 0.358-3.74 [facility] 30.8 pg 27.0-32.0 [facility] 14.4 % 11.6-14.6 [facility] 48.9 fl 35.1-43.9 [facility] 1.700 % 0.0-0.9 [facility] 0 % 0-5 [facility] 82 mL/min >60 [facility] 100 mL/min >60 [facility] 32.1 RATIO 10-20 [facility] 3.2 g/dL 2.2-4.2 [facility] 86 U/L 45-117 [facility] 30 U/L 13-56 [facility] 27.0 mmol/L 21.0-32.0 [facility] 1.94 uIU/mL 0.358-3.74 [facility] Platelets bldOrdered By: Shashank Tai on 05-20-2023 Platelets (Bld) [#/Vol] 432 10*3/uL 150-450 [facility] Serum or plasma albumin uche urement (mass/volume)Ordered By: Shashank Tai on 05-20-2023 Albumin [Mass/Vol] 3.7 g/dL 3.2-5.0 [facility] Serum or plasma albumin/glob ulin mass ratioOrdered By: Shashank Tai on 05-20-2023 Albumin/Globulin [Mass ratio] 1.2 {ratio} 0.9-2.4 [facility] Serum or plasma calcium uche urement (mass/volume)Ordered By: Shashank Tai on 05-20-2023 Calcium [Mass/Vol] 9.3 mg/dL 8.5-10.1 [facility] Serum or plasma creatinine m easurement (mass/volume)Ordered By: Shashank Tai on 05-20-2023 Creatinine [Mass/Vol] 0.78 mg/dL 0.55-1.02 [facility] Comment on above: The validity of the calculated GFR & GFRAA in patients over 70 years has not been determined. Clinical correlation is essential. Serum or plasma urea nitroge n measurement (mass/volume)Ordered By: Shashank Tai on 05-20-2023 Urea nitrogen [Mass/Vol] 25 mg/dL 7-18 [facility] Thin prep Papanicolaou smear with manual screeningOrdered By: Shashank Tai on 05-20-2023 Thin prep Papanicolaou smear with manual screening 21 U/L 15-37 [facility] Thin prep Papanicolaou smear with manual screening 7 5-15 [facility] Absolute lymphocyte countOrd ered By: Shavon Kingsley on 05-17-2023 Lymphocytes Auto (Unsp spec) [#/Vol] 4.84 10*3/uL 0.83-4.51 [facility] Basophil percentageOrdered B y: Shavon Kingsley on 05-17-2023 Basophil percentage 286 mg/dL 74-106 [facility] Basophil percentage 138 mmol/L 136-145 [facility] Basophil percentage 3.7 mmol/L 3.5-5.1 [facility] Basophil percentage 108 mmol/L 98-107 [facility] Basophils (Bld) [#/Vol] 12.3 10*3/uL 4.4-11.0 [facility] Basophils (Bld) [#/Vol] 6.1 10*3/uL 2.0-7.7 [facility] Basophils/100 WBC (Bld) 1.1 % 0-1 [facility] Basophils/100 WBC (Bld) 49.5 % 47-70 [facility] Basophils/100 WBC (Bld) 1.3 % 0-5 [facility] Chloride [Moles/Vol] 108 mmol/L 98-107 [facility] Eosinophils/100 WBC (Bld) 1.3 % 0-5 [facility] Glucose [Mass/Vol] 286 mg/dL 74-106 [facility] Comment on above: Glucose result great er than or equal to 200 mg/dLsuggests DIABETES MELLITUS per A.D.A. criteria. Neutrophils (Bld) [#/Vol] 6.1 10*3/uL 2.0-7.7 [facility] Neutrophils/100 WBC (Bld) 49.5 % 47-70 [facility] Potassium [Moles/Vol] 3.7 mmol/L 3.5-5.1 [facility] Sodium [Moles/Vol] 138 mmol/L 136-145 [facility] WBC (Bld) [#/Vol] 12.3 10*3/uL 4.4-11.0 [facility] Blood erythrocytes count (nu mber/volume)Ordered By: Shavon Kingsley on 05-17-2023 RBC (Bld) [#/Vol] 4.46 10*6/uL 4.2-5.4 [facility] Blood hemoglobin measurement (mass/volume)Ordered By: Shavon Kingsley on 05-17-2023 Hemoglobin (Bld) [Mass/Vol] 13.7 g/dL 12.0-15.0 [facility] Blood lymphocytes/100 leukoc ytesOrdered By: Shavon Kingsley on 05-17-2023 Lymphocytes/100 WBC (Bld) 39.5 % 19-41 [facility] Blood monocytes/100 leukocyt esOrdered By: Shavon Kingsley on 05-17-2023 Monocytes/100 WBC (Bld) 6.7 % 0-10 [facility] Blood platelet mean volumeOr dered By: Shavon Kingsley on 05-17-2023 Platelet mean volume (Bld) [Entitic vol] 9.8 fL 6.2-12.0 [facility] Determination of erythrocyte mean corpuscular volume (MCV)Ordered By: Shavon Kingsley on 05-17-2023 MCV (RBC) [Entitic vol] 91.7 fL 81-99 [facility] Glucose Glucometer (BldC) [M ass/Vol]Ordered By: Shavon Kingsley on 05-17-2023 Glucose [Mass/Vol] 178 mg/dL 74-106 [facility] Comment on above: MANAGEMENT OF PATIEN T CARE PER NURSING PROTOCOL Hematocrit Auto (Bld) [Volum e fraction]Ordered By: Shavon Kingsley on 05-17-2023 Hematocrit (Bld) [Volume fraction] 40.9 % 37-47 [facility] Laboratory - Chemistry and C hemistry - challengeOrdered By: Shavon Kingsley on 05-17-2023 CO2 [Moles/Vol] 26.0 mmol/L 21.0-32.0 [facility] Urea nitrogen/Creatinine [Mass ratio] 21.9 mg/mg 10-20 [facility] Laboratory - Hematology and Cell countsOrdered By: Shavon Kingsley on 05-17-2023 Erythrocyte distribution width (RBC) [Entitic vol] 47.6 fL 35.1-43.9 [facility] Erythrocyte distribution width (RBC) [Ratio] 14.0 % 11.6-14.6 [facility] Immature granulocytes/100 WBC (Bld) 1.900 % 0.0-0.9 [facility] Comment on above: IG% - Immature Granu locytes (promyelocytes, myelocytes and metamyelocytes) > 1% indicates that a LEFT SHIFT is Present. MCH (RBC) [Entitic mass] 30.7 pg 27.0-32.0 [facility] Nucleated RBC/100 WBC (Bld) [Ratio] 0 % 0-5 [facility] MCHC Auto (RBC) [Mass/Vol]Or dered By: Shavon Kingsley on 05-17-2023 MCHC (RBC) [Mass/Vol] 33.5 g/dL 32-36 [facility] No Panel InformationOrdered By: Shavon Kingsley on 05-17-2023 Estimated Creatinine Clearance Calc 90.60 ml/min [facility] Estimated GFR (MDRD) Amer 115 mL/min >60 [facility] Comment on above: GFR Calc Estimated GFR (MDRD) Non-Af Amer 95 mL/min >60 [facility] Comment on above: Non- GFR Calc 30.7 pg 27.0-32.0 [facility] 14.0 % 11.6-14.6 [facility] 47.6 fl 35.1-43.9 [facility] 1.900 % 0.0-0.9 [facility] 0 % 0-5 [facility] 95 mL/min >60 [facility] 115 mL/min >60 [facility] 90.60 ml/min [facility] 21.9 RATIO 10-20 [facility] 26.0 mmol/L 21.0-32.0 [facility] Platelets bldOrdered By: Meri Kingsley on 05-17-2023 Platelets (Bld) [#/Vol] 389 10*3/uL 150-450 [facility] Serum or plasma calcium uche urement (mass/volume)Ordered By: Shavon Kingsley on 05-17-2023 Calcium [Mass/Vol] 8.5 mg/dL 8.5-10.1 [facility] Serum or plasma creatinine m easurement (mass/volume)Ordered By: Shavon Kingsley on 05-17-2023 Creatinine [Mass/Vol] 0.68 mg/dL 0.55-1.02 [facility] Comment on above: The validity of the calculated GFR & GFRAA in patients over 70 years has not been determined. Clinical correlation is essential. Serum or plasma urea nitroge n measurement (mass/volume)Ordered By: Shavon Kingsley on 05-17-2023 Urea nitrogen [Mass/Vol] 15 mg/dL 7-18 [facility] Thin prep Papanicolaou smear with manual screeningOrdered By: Shavon Kingsley on 05-17-2023 Thin prep Papanicolaou smear with manual screening 4 5-15 [facility] Absolute lymphocyte countOrd ered By: Shavon Kingsley on 05-16-2023 Lymphocytes Auto (Unsp spec) [#/Vol] 5.62 10*3/uL 0.83-4.51 [facility] Basophil percentageOrdered B y: Shavon Kingsley on 05-16-2023 Basophils/100 WBC (Bld) 1.4 % 0-1 [facility] Chloride [Moles/Vol] 109 mmol/L 98-107 [facility] Eosinophils/100 WBC (Bld) 2.0 % 0-5 [facility] Glucose [Mass/Vol] 158 mg/dL 74-106 [facility] Comment on above: Fasting Glucose resu lt greater than or equal to 126 mg/dL suggests DIABETES MELLITUS per A.D.A. criteria. Neutrophils (Bld) [#/Vol] 6.8 10*3/uL 2.0-7.7 [facility] Neutrophils/100 WBC (Bld) 48.6 % 47-70 [facility] Potassium [Moles/Vol] 3.6 mmol/L 3.5-5.1 [facility] Sodium [Moles/Vol] 138 mmol/L 136-145 [facility] WBC (Bld) [#/Vol] 14.0 10*3/uL 4.4-11.0 [facility] Blood erythrocytes count (nu mber/volume)Ordered By: Shavon Kingsley on 05-16-2023 RBC (Bld) [#/Vol] 4.56 10*6/uL 4.2-5.4 [facility] Blood hemoglobin measurement (mass/volume)Ordered By: Shavon Kingsley on 05-16-2023 Hemoglobin (Bld) [Mass/Vol] 14.0 g/dL 12.0-15.0 [facility] Blood lymphocytes/100 leukoc ytesOrdered By: Shavon Kingsley on 05-16-2023 Lymphocytes/100 WBC (Bld) 40.1 % 19-41 [facility] Blood monocytes/100 leukocyt esOrdered By: Shavon Kingsley on 05-16-2023 Monocytes/100 WBC (Bld) 6.0 % 0-10 [facility] Blood platelet mean volumeOr dered By: Shavon Kingsley on 05-16-2023 Platelet mean volume (Bld) [Entitic vol] 9.9 fL 6.2-12.0 [facility] Determination of erythrocyte mean corpuscular volume (MCV)Ordered By: Shavon Kingsley on 05-16-2023 MCV (RBC) [Entitic vol] 92.8 fL 81-99 [facility] Glucose Glucometer (BldC) [M ass/Vol]Ordered By: Shavon Kingsley on 05-16-2023 Glucose [Mass/Vol] 172 mg/dL 74-106 [facility] Comment on above: MANAGEMENT OF PATIEN T CARE PER NURSING PROTOCOL Hematocrit Auto (Bld) [Volum e fraction]Ordered By: Shavon Kingsley on 05-16-2023 Hematocrit (Bld) [Volume fraction] 42.3 % 37-47 [facility] INR in Blood by Coagulation assayOrdered By: Shavon Kingsley on 05-16-2023 INR Coag (Bld) [Relative time] 2.2 {INR} [facility] Laboratory - Chemistry and C hemistry - challengeOrdered By: Shavon Kingsley on 05-16-2023 CO2 [Moles/Vol] 24.0 mmol/L 21.0-32.0 [facility] Urea nitrogen/Creatinine [Mass ratio] 28.0 mg/mg 10-20 [facility] Laboratory - CoagulationOrde red By: Shavon Kingsley on 05-16-2023 PT Coag (PPP) [Time] 24.9 s 11.7-14.9 [facility] Laboratory - Hematology and Cell countsOrdered By: Shavon Kingsley on 05-16-2023 Erythrocyte distribution width (RBC) [Entitic vol] 48.8 fL 35.1-43.9 [facility] Erythrocyte distribution width (RBC) [Ratio] 14.4 % 11.6-14.6 [facility] Immature granulocytes/100 WBC (Bld) 1.900 % 0.0-0.9 [facility] Comment on above: IG% - Immature Granu locytes (promyelocytes, myelocytes and metamyelocytes) > 1% indicates that a LEFT SHIFT is Present. MCH (RBC) [Entitic mass] 30.7 pg 27.0-32.0 [facility] Nucleated RBC/100 WBC (Bld) [Ratio] 0 % 0-5 [facility] MCHC Auto (RBC) [Mass/Vol]Or dered By: Shavon Kingsley on 05-16-2023 MCHC (RBC) [Mass/Vol] 33.1 g/dL 32-36 [facility] No Panel InformationOrdered By: Shavon Kingsley on 05-16-2023 24.9 SECONDS 11.7-14.9 [facility] Estimated Creatinine Clearance Calc 108.08 ml/min [facility] Estimated GFR (MDRD) Amer 142 mL/min >60 [facility] Comment on above: GFR Calc Estimated GFR (MDRD) Non-Af Amer 118 mL/min >60 [facility] Comment on above: Non- GFR Calc Reactive Lymphocytes 1+ [facility] 1+ [facility] Platelets bldOrdered By: Meri Kingsley on 05-16-2023 Platelets (Bld) [#/Vol] 399 10*3/uL 150-450 [facility] Serum or plasma calcium uche urement (mass/volume)Ordered By: Shavon Kingsley on 05-16-2023 Calcium [Mass/Vol] 9.2 mg/dL 8.5-10.1 [facility] Serum or plasma creatinine m easurement (mass/volume)Ordered By: Shavon Kingsley on 05-16-2023 Creatinine [Mass/Vol] 0.57 mg/dL 0.55-1.02 [facility] Comment on above: The validity of the calculated GFR & GFRAA in patients over 70 years has not been determined. Clinical correlation is essential. Serum or plasma urea nitroge n measurement (mass/volume)Ordered By: Shavon Kingsley on 05-16-2023 Urea nitrogen [Mass/Vol] 16 mg/dL 7-18 [facility] Thin prep Papanicolaou smear with manual screeningOrdered By: Shavon Kingsley on 05-16-2023 Thin prep Papanicolaou smear with manual screening 5 -15 [facility] Absolute lymphocyte countOrd ered By: Estefany Soriano on 05-15-2023 Lymphocytes Auto (Unsp spec) [#/Vol] 5.77 10*3/uL 0.83-4.51 [facility] Basophil percentageOrdered B y: Leola White on 05-15-2023 Basophil percentage 6.1 g/dL 6.4-8.2 [facility] Basophil percentage 0.40 mg/dL 0.20-1.00 [facility] Bilirubin [Mass/Vol] 0.40 mg/dL 0.20-1.00 [facility] Comment on above: For patients on eltr ombopag therapy, use of Dimension Matthews TBIL is not recommended. Protein [Mass/Vol] 6.1 g/dL 6.4-8.2 [facility] Basophil percentage 3.6 mg/dL 2.5-4.9 [facility] Basophil percentageOrdered B y: Estefany Soriano on 05-15-2023 Basophil percentage 0 SEEN /hpf 0-5 [facility] Basophils/100 WBC (Bld) 1.2 % 0-1 [facility] Bilirubin [Mass/Vol] 0.30 mg/dL 0.20-1.00 [facility] Comment on above: For patients on eltr ombopag therapy, use of Dimension [place] TBIL is not recommended. Chloride [Moles/Vol] 96 mmol/L 98-107 [facility] Eosinophils/100 WBC (Bld) 0.2 % 0-5 [facility] Glucose [Mass/Vol] 333 mg/dL 74-106 [facility] Comment on above: Glucose result great er than or equal to 200 mg/dLsuggests DIABETES MELLITUS per A.D.A. criteria. Neutrophils (Bld) [#/Vol] 14.8 10*3/uL 2.0-7.7 [facility] Neutrophils/100 WBC (Bld) 64.3 % 47-70 [facility] Potassium [Moles/Vol] 3.9 mmol/L 3.5-5.1 [facility] Comment on above: Slight Hemolysis, Re sult may be falsely increased. Protein [Mass/Vol] 7.1 g/dL 6.4-8.2 [facility] Sodium [Moles/Vol] 127 mmol/L 136-145 [facility] WBC (Bld) [#/Vol] 23.0 10*3/uL 4.4-11.0 [facility] Bilirubin Test strip Ql (U)O rdered By: Estefany Soriano on 05-15-2023 Bilirubin Ql (U) Negative Negative [facility] Blood erythrocytes count (nu mber/volume)Ordered By: Estefany Soriano on 05-15-2023 RBC (Bld) [#/Vol] 4.85 10*6/uL 4.2-5.4 [facility] Blood hemoglobin measurement (mass/volume)Ordered By: Estefany Soriano on 05-15-2023 Hemoglobin (Bld) [Mass/Vol] 14.8 g/dL 12.0-15.0 [facility] Blood lymphocytes/100 leukoc ytesOrdered By: Estefany Soriano on 05-15-2023 Lymphocytes/100 WBC (Bld) 25.1 % 19-41 [facility] Blood manual differential co mment interpretation (narrative result)Ordered By: Leola Bowman on 05-15-2023 Manual differential comment Montez (Bld) [Interp] SCANNED [facility] Blood manual differential co mment interpretation (narrative result)Ordered By: Estefany Soriano on 05-15-2023 Manual differential comment Montez (Bld) [Interp] SCANNED [facility] Comment on above: LYMPHOCYTOSIS PRESEN TMONOCYTOSIS PRESENT Blood monocytes/100 leukocyt esOrdered By: Estefany Soriano on 05-15-2023 Monocytes/100 WBC (Bld) 6.8 % 0-10 [facility] Blood platelet mean volumeOr dered By: Estefany Soriano on 05-15-2023 Platelet mean volume (Bld) [Entitic vol] 9.9 fL 6.2-12.0 [facility] Clostridium difficile detect ion by polymerase chain reactionOrdered By: Estefany Soriano on 05-15-2023 C. difficile DNA RACHEL+probe Ql (Unsp spec) [facility] Determination of erythrocyte mean corpuscular volume (MCV)Ordered By: Estefany Soriano on 05-15-2023 MCV (RBC) [Entitic vol] 90.3 fL 81-99 [facility] Hematocrit Auto (Bld) [Volum e fraction]Ordered By: Estefany Soriano on 05-15-2023 Hematocrit (Bld) [Volume fraction] 43.8 % 37-47 [facility] INR in Blood by Coagulation assayOrdered By: Leola oBwman on 05-15-2023 INR Coag (Bld) [Relative time] 2.3 {INR} [facility] INR in Blood by Coagulation assayOrdered By: Estefany Soriano on 05-15-2023 INR Coag (Bld) [Relative time] 1.9 {INR} [facility] Influenza virus A and B and SARS-CoV-2 (COVID-19) Ag panel - Upper respiratory specimOrdered By: Estefany Soriano on 05-15-2023 SARS-CoV-2 (COVID-19) RNA RACHEL+probe Ql (Resp) [facility] Ketones Test strip Ql (U)Ord ered By: Estefany Soriano on 05-15-2023 Ketones Ql (U) Negative Negative [facility] Laboratory - Chemistry and C hemistry - challengeOrdered By: Leola Bowman on 05-15-2023 ALP [Catalytic activity/Vol] 84 U/L 45-117 [facility] ALT [Catalytic activity/Vol] 20 U/L [facility] Globulin (S) [Mass/Vol] 2.9 g/dL 2.2-4.2 [facility] Magnesium [Mass/Vol] 1.9 mg/dL 1.6-2.6 [facility] Comment on above: Slight Hemolysis, Re sult may be falsely increased. Laboratory - Chemistry and C hemistry - challengeOrdered By: Estefany Soriano on 05-15-2023 ALP [Catalytic activity/Vol] 100 U/L 45-117 [facility] ALT [Catalytic activity/Vol] 23 U/L [facility] CK [Catalytic activity/Vol] 100 U/L 26-192 [facility] CO2 [Moles/Vol] 26.0 mmol/L 21.0-32.0 [facility] Globulin (S) [Mass/Vol] 3.4 g/dL 2.2-4.2 [facility] Urea nitrogen/Creatinine [Mass ratio] 22.5 mg/mg 10-20 [facility] Laboratory - CoagulationOrde red By: Leola Bowman on 05-15-2023 PT Coag (PPP) [Time] 25.8 s 11.7-14.9 [facility] Laboratory - CoagulationOrde red By: Estefany Soriano on 05-15-2023 PT Coag (PPP) [Time] 21.6 s 11.7-14.9 [facility] Laboratory - Hematology and Cell countsOrdered By: Estefany Soriano on 05-15-2023 Erythrocyte distribution width (RBC) [Entitic vol] 45.9 fL 35.1-43.9 [facility] Erythrocyte distribution width (RBC) [Ratio] 13.8 % 11.6-14.6 [facility] Immature granulocytes/100 WBC (Bld) 2.400 % 0.0-0.9 [facility] Comment on above: IG% - Immature Granu locytes (promyelocytes, myelocytes and metamyelocytes) > 1% indicates that a LEFT SHIFT is Present. MCH (RBC) [Entitic mass] 30.5 pg 27.0-32.0 [facility] Nucleated RBC/100 WBC (Bld) [Ratio] 0 % 0-5 [facility] Laboratory - Microbiology an d Antimicrobial susceptibilityOrdered By: Leola Bowman on 05-15-2023 SARS-CoV-2 (COVID-19) RNA RACHEL+probe Ql (Unsp spec) [facility] SARS-CoV-2 (COVID-19) RNA RACHEL+probe Ql (Unsp spec) [facility] MCHC Auto (RBC) [Mass/Vol]Or dered By: Estefany Soriano on 05-15-2023 MCHC (RBC) [Mass/Vol] 33.8 g/dL 32-36 [facility] Mucus LM Ql (Urine sed)Order ed By: Estefany Soriano on 05-15-2023 Mucus Ql (Urine sed) 0 SEEN /hpf [facility] Nitrite Test strip Ql (U)Ord ered By: Estefany Soriano on 05-15-2023 Nitrite Ql (U) Negative Negative [facility] No Panel InformationOrdered By: Leola Bowman on 05-15-2023 2.9 g/dL 2.2-4.2 [facility] 84 U/L 45-117 [facility] 20 U/L 13-56 [facility] Streptococcus pneumoniae Antigen ([facility] Methicillin-Resist S.aureus DNA PCR Negative Negative [facility] Negative Negative [facility] Streptococcus pneumoniae Antigen ([facility] 1.9 mg/dL 1.6-2.6 [facility] No Panel InformationOrdered By: Estefany Soriano on 05-15-2023 Estimated Creatinine Clearance Calc 42.38 ml/min [facility] Estimated GFR (MDRD) Amer 46 mL/min >60 [facility] Comment on above: GFR Calc Estimated GFR (MDRD) Non-Af Amer 38 mL/min >60 [facility] Comment on above: Non- GFR Calc 100 U/L 26-192 [facility] Platelets bldOrdered By: Liya Soriano on 05-15-2023 Platelets (Bld) [#/Vol] 446 10*3/uL 150-450 [facility] Protein Test strip Ql (U)Ord ered By: Estefany Soriano on 05-15-2023 Protein Ql (U) 30 mg/dl Negative [facility] Respiratory pathogens detect ion panel by molecular detection methodOrdered By: Leola Bowman on 05-15-2023 Respiratory pathogens DNA and RNA panel RACHEL+probe (Resp) [facility] Respiratory pathogens DNA and RNA panel RACHEL+probe (Resp) [facility] Review by pathologistOrdered By: Estefany Soriano on 05-15-2023 Pathologist review Montez (Unsp spec) [Interp] Cande layne [facility] Pathologist review Montez (Unsp spec) [Interp] Reviewed [facility] Comment on above: Previous reported re sult: Cande layne Edited by: ROSHNI on 05/15/23:1358Leukocytosis.Clinical correlation necessary.Chay Chandra M.D. 05/15/23 AMENDED REPORT 05/15/23 [id number] PATH REV previously reported as: Cande layne Serum or plasma albumin uche urement (mass/volume)Ordered By: Leola Bowman on 05-15-2023 Albumin [Mass/Vol] 3.2 g/dL 3.2-5.0 [facility] Serum or plasma albumin uche urement (mass/volume)Ordered By: Estefany Soriano on 05-15-2023 Albumin [Mass/Vol] 3.7 g/dL 3.2-5.0 [facility] Serum or plasma albumin/glob ulin mass ratioOrdered By: Leola Bowman on 05-15-2023 Albumin/Globulin [Mass ratio] 1.1 {ratio} 0.9-2.4 [facility] Serum or plasma albumin/glob ulin mass ratioOrdered By: Estefany Soriano on 05-15-2023 Albumin/Globulin [Mass ratio] 1.1 {ratio} 0.9-2.4 [facility] Serum or plasma calcium uche urement (mass/volume)Ordered By: Estefany Soriano on 05-15-2023 Calcium [Mass/Vol] 9.5 mg/dL 8.5-10.1 [facility] Serum or plasma creatinine m easurement (mass/volume)Ordered By: Estefany Soriano on 05-15-2023 Creatinine [Mass/Vol] 1.51 mg/dL 0.55-1.02 [facility] Comment on above: The validity of the calculated GFR & GFRAA in patients over 70 years has not been determined. Clinical correlation is essential. Serum or plasma urea nitroge n measurement (mass/volume)Ordered By: Estefany Soriano on 05-15-2023 Urea nitrogen [Mass/Vol] 34 mg/dL 7- [facility] Serum procalcitonin measurem entOrdered By: Leola Bowman on 05-15-2023 Procalcitonin [Mass/Vol] 0.05 ng/mL 0.00-0.09 [facility] Comment on above: A procalcitonin (PCT ) level above 2.0 ng/mL on the first day of ICU admission is associated with a high risk for progression to severe sepsis and/or septic shock. A PCT level below 0.5 ng/mL on the first day of ICU admission is associated with a low risk for progression to severe and/or septic shock. Note: Concentrations <0.5 ng/mL do not exclude an infection on account of localized infections (without systemic signs) which can be associated with such low concentrations, or a systemic infection in its initial stages (<6 hours). Furthermore, increased procalcitonin can occur without infection. PCT concentrations between 0.5 and 2.0 ng/mL should be interpreted taking into account the patient's history. It is recommended to retest PCT within 6-24 hours if any concentrations <2 ng/mL are obtained. Squamous epithelial cells de tection in urine sediment by light microscopyOrdered By: Estefany Soriano on 05-15-2023 Epithelial cells.squamous LM Ql (Urine sed) 0-5 SEEN /hpf 5-10 [facility] Stool Clostridium difficile detectionOrdered By: Estefany Soriano on 05-15-2023 C. difficile Ql (Stl) [facility] Stool enteric pathogen panel by probe and target amplification methodOrdered By: Estefany Soriano on 05-15-2023 Gastrointestinal pathogens panel RACHEL+probe (Stl) [facility] Stool lactoferrin detection by immunoassayOrdered By: Estefany Soriano on 05-15-2023 Lactoferrin IA Ql (Stl) [facility] Teardrop cell detectionOrder ed By: Estefany Soriano on 05-15-2023 Dacrocytes LM Ql (Bld) RARE [facility] Thin prep Papanicolaou smear with manual screeningOrdered By: Leola Bowman on 05-15-2023 Thin prep Papanicolaou smear with manual screening 15 U/L [facility] Thin prep Papanicolaou smear with manual screeningOrdered By: Estefany Soriano on 05-15-2023 Thin prep Papanicolaou smear with manual screening 16 U/L [facility] Comment on above: Slight Hemolysis, Re sult may be falsely increased. Thin prep Papanicolaou smear with manual screening 5 5-15 [facility] Urine Legionella pneumophila antigen detectionOrdered By: Leola Bowman on 05-15-2023 L. pneumophila Ag Ql (U) [facility] L. pneumophila Ag Ql (U) [facility] Urine blood detectionOrdered By: Estefany Soriano on 05-15-2023 RBC Ql (U) 10 /ul Negative [facility] RBC Ql (U) 0-5 SEEN /hpf 0-5 [facility] Urine clarityOrdered By: Liya Soriano on 05-15-2023 Clarity (U) Clear Clear [facility] Urine color determinationOrd ered By: Estefany Soriano on 05-15-2023 Color (U) Yellow Yellow [facility] Urine glucose detectionOrder ed By: Estefany Soriano on 05-15-2023 Glucose Ql (U) 1000 mg/dl Normal [facility] Urine leukocyte esterase det ection by dipstickOrdered By: Estefany Soriano on 05-15-2023 Leukocyte esterase Test strip Ql (U) Negative Negative [facility] Urine pHOrdered By: Estefany zamora on 05-15-2023 pH (U) 5.0 [pH] 5.0 - 8.0 [facility] Urine sediment bacteria coun t by microscopy (number/high power field)Ordered By: Estefany Soriano on 05-15-2023 Bacteria LM.HPF (Urine sed) [#/Area] 0 /[HPF] None Seen [facility] Urine specific gravity measu rementOrdered By: Estefany Soriano on 05-15-2023 Specific gravity (U) [Rel density] 1.015 1.002-1.030 [facility] Urobilinogen Auto test strip Ql (U)Ordered By: Estefany Soriano on 05-15-2023 Urobilinogen Ql (U) Normal mg/dl Normal [facility] Laboratory - Microbiology an d Antimicrobial susceptibilityOrdered By: Shashank Tai on 05-12-2023 SARS-CoV-2 (COVID-19) RNA RACHEL+probe Ql (Unsp spec) [facility] SARS-CoV-2 (COVID-19) RNA RACHEL+probe Ql (Unsp spec) [facility] No Panel InformationOrdered By: Shashank Tai on 05-12-2023 Influenza Types A,B Direct FA (AYUSH) [facility] Influenza Types A,B Direct FA (AYUSH) [facility] RSV Ag EIAOrdered By: Shashank kelly on 05-12-2023 RSV Ag Immune stain Ql (Tiss) [facility] RSV Ag Immune stain Ql (Tiss) [facility] INR in Blood by Coagulation assayOrdered By: Shashank Tai on 04-25-2023 INR Coag (Bld) [Relative time] 2.1 {INR} [facility] Laboratory - CoagulationOrde red By: Shashank Tai on 04-25-2023 PT Coag (PPP) [Time] 23.8 s 11.7-14.9 [facility] No Panel InformationOrdered By: Shashank Tai on 04-25-2023 23.8 SECONDS 11.7-14.9 [facility] INR in Blood by Coagulation assayOrdered By: Shashank Tai on 04-01-2023 INR Coag (Bld) [Relative time] 1.3 {INR} [facility] Laboratory - CoagulationOrde red By: Shashank Tai on 04-01-2023 PT Coag (PPP) [Time] 16.0 s 11.7-14.9 [facility] Absolute lymphocyte countOrd ered By: Shashank Tai on 02-19-2023 Lymphocytes Auto (Unsp spec) [#/Vol] 3.98 10*3/uL 0.83-4.51 [facility] Basophil percentageOrdered B y: Shashank Tai on 02-19-2023 Basophils/100 WBC (Bld) 1.2 % 0-1 [facility] Bilirubin [Mass/Vol] 0.40 mg/dL 0.20-1.00 [facility] Comment on above: For patients on eltr ombopag therapy, use of Dimension Matthews TBIL is not recommended. Chloride [Moles/Vol] 104 mmol/L 98-107 [facility] Eosinophils/100 WBC (Bld) 2.4 % 0-5 [facility] Glucose [Mass/Vol] 203 mg/dL 74-106 [facility] Comment on above: Glucose result great er than or equal to 200 mg/dLsuggests DIABETES MELLITUS per A.D.A. criteria. Neutrophils (Bld) [#/Vol] 5.8 10*3/uL 2.0-7.7 [facility] Neutrophils/100 WBC (Bld) 52.0 % 47-70 [facility] Potassium [Moles/Vol] 4.2 mmol/L 3.5-5.1 [facility] Protein [Mass/Vol] 6.6 g/dL 6.4-8.2 [facility] Sodium [Moles/Vol] 135 mmol/L 136-145 [facility] WBC (Bld) [#/Vol] 11.2 10*3/uL 4.4-11.0 [facility] Blood erythrocytes count (nu mber/volume)Ordered By: Shashank Tai on 02-19-2023 RBC (Bld) [#/Vol] 4.90 10*6/uL 4.2-5.4 [facility] Blood hemoglobin measurement (mass/volume)Ordered By: Shashank Tai on 02-19-2023 Hemoglobin (Bld) [Mass/Vol] 14.3 g/dL 12.0-15.0 [facility] Blood lymphocytes/100 leukoc ytesOrdered By: Shashank Tai on 02-19-2023 Lymphocytes/100 WBC (Bld) 35.4 % 19-41 [facility] Blood monocytes/100 leukocyt esOrdered By: Shashank Tai on 02-19-2023 Monocytes/100 WBC (Bld) 8.1 % 0-10 [facility] Blood platelet mean volumeOr dered By: Shashank Tai on 02-19-2023 Platelet mean volume (Bld) [Entitic vol] 9.8 fL 6.2-12.0 [facility] Determination of erythrocyte mean corpuscular volume (MCV)Ordered By: Shashank Tai on 02-19-2023 MCV (RBC) [Entitic vol] 88.0 fL 81-99 [facility] Hematocrit Auto (Bld) [Volum e fraction]Ordered By: Shashank Tai on 02-19-2023 Hematocrit (Bld) [Volume fraction] 43.1 % 37-47 [facility] Laboratory - Chemistry and C hemistry - challengeOrdered By: [facility] 02-19-2023 ALP [Catalytic activity/Vol] 101 U/L 45-117 [facility] ALT [Catalytic activity/Vol] 19 U/L 13-56 [facility] CO2 [Moles/Vol] 27.0 mmol/L 21.0-32.0 [facility] Globulin (S) [Mass/Vol] 3.1 g/dL 2.2-4.2 [facility] Urea nitrogen/Creatinine [Mass ratio] 25.9 mg/mg 10-20 [facility] Laboratory - Hematology and Cell countsOrdered By: Shashank Zaire 02-19-2023 Erythrocyte distribution width (RBC) [Entitic vol] 60.6 fL 35.1-43.9 [facility] Erythrocyte distribution width (RBC) [Ratio] 19.0 % 11.6-14.6 [facility] Immature granulocytes/100 WBC (Bld) 0.900 % 0.0-0.9 [facility] Comment on above: IG% - Immature Granu locytes (promyelocytes, myelocytes and metamyelocytes) > 1% indicates that a LEFT SHIFT is Present. MCH (RBC) [Entitic mass] 29.2 pg 27.0-32.0 [facility] Nucleated RBC/100 WBC (Bld) [Ratio] 0 % 0-5 [facility] MCHC Auto (RBC) [Mass/Vol]Or dered By: Shashank Tai on 02-19-2023 MCHC (RBC) [Mass/Vol] 33.2 g/dL 32-36 [facility] No Panel InformationOrdered By: Shashank Tai on 02-19-2023 Estimated GFR (MDRD) Amer 114 mL/min >60 [facility] Comment on above: GFR Calc Estimated GFR (MDRD) Non-Af Amer 94 mL/min >60 [facility] Comment on above: Non- GFR Calc Thyroid Stimulating Hormone (TSH) 1.39 uIU/mL 0.358-3.74 [facility] Platelets bldOrdered By: Shashank Tai on 02-19-2023 Platelets (Bld) [#/Vol] 434 10*3/uL 150-450 [facility] Serum or plasma albumin uche urement (mass/volume)Ordered By: Shashank Tai on 02-19-2023 Albumin [Mass/Vol] 3.5 g/dL 3.2-5.0 [facility] Serum or plasma albumin/glob ulin mass ratioOrdered By: Shashank Tai on 02-19-2023 Albumin/Globulin [Mass ratio] 1.1 {ratio} 0.9-2.4 [facility] Serum or plasma calcium uche urement (mass/volume)Ordered By: Shashank Tai on 02-19-2023 Calcium [Mass/Vol] 9.2 mg/dL 8.5-10.1 [facility] Serum or plasma creatinine m easurement (mass/volume)Ordered By: Shashank Tai on 02-19-2023 Creatinine [Mass/Vol] 0.69 mg/dL 0.55-1.02 [facility] Comment on above: The validity of the calculated GFR & GFRAA in patients over 70 years has not been determined. Clinical correlation is essential. Serum or plasma urea nitroge n measurement (mass/volume)Ordered By: Shashank Tai on 02-19-2023 Urea nitrogen [Mass/Vol] 18 mg/dL 7-18 [facility] Thin prep Papanicolaou smear with manual screeningOrdered By: Shashank Tai on 02-19-2023 Thin prep Papanicolaou smear with manual screening 12 U/L 15-37 [facility] Thin prep Papanicolaou smear with manual screening 4 5-15 [facility] Bacteria identified Cx Nom ( Wound)Ordered By: Todd Nielsen on 02-08-2023 Wound Culture Staphylococcus aureus [facility] Gram stain for investigation of transfusion reactionOrdered By: Todd Nielsen on 02-08-2023 Microscopic observation Gram stain Nom (Unsp spec) [facility] Absolute lymphocyte countOrd ered By: Deven Joann on 01-24-2023 Lymphocytes Auto (Unsp spec) [#/Vol] 3.51 10*3/uL 0.83-4.51 [facility] Basophil percentageOrdered B y: Deven David on 01-24-2023 Basophils/100 WBC (Bld) 1.1 % 0-1 [facility] Bilirubin [Mass/Vol] 0.20 mg/dL 0.20-1.00 [facility] Comment on above: For patients on eltr ombopag therapy, use of Dimension Matthews TBIL is not recommended. Chloride [Moles/Vol] 108 mmol/L 98-107 [facility] Eosinophils/100 WBC (Bld) 3.6 % 0-5 [facility] Glucose [Mass/Vol] 176 mg/dL 74-106 [facility] Comment on above: Fasting Glucose resu lt greater than or equal to 126 mg/dL suggests DIABETES MELLITUS per A.D.A. criteria. LDH [Catalytic activity/Vol] 171 U/L 84-246 [facility] Neutrophils (Bld) [#/Vol] 4.8 10*3/uL 2.0-7.7 [facility] Neutrophils/100 WBC (Bld) 49.4 % 47-70 [facility] Potassium [Moles/Vol] 4.2 mmol/L 3.5-5.1 [facility] Protein [Mass/Vol] 7.0 g/dL 6.4-8.2 [facility] Sodium [Moles/Vol] 140 mmol/L 136-145 [facility] WBC (Bld) [#/Vol] 9.8 10*3/uL 4.4-11.0 [facility] Blood erythrocytes count (nu mber/volume)Ordered By: Deven David on 01-24-2023 RBC (Bld) [#/Vol] 4.99 10*6/uL 4.2-5.4 [facility] Blood hemoglobin measurement (mass/volume)Ordered By: Deven David on 01-24-2023 Hemoglobin (Bld) [Mass/Vol] 14.0 g/dL 12.0-15.0 [facility] Blood lymphocytes/100 leukoc ytesOrdered By: Deven David on 01-24-2023 Lymphocytes/100 WBC (Bld) 35.9 % 19-41 [facility] Blood monocytes/100 leukocyt esOrdered By: Deven David on 01-24-2023 Monocytes/100 WBC (Bld) 9.7 % 0-10 [facility] Blood platelet mean volumeOr dered By: Deven David on 01-24-2023 Platelet mean volume (Bld) [Entitic vol] 9.9 fL 6.2-12.0 [facility] Determination of erythrocyte mean corpuscular volume (MCV)Ordered By: Deven David on 01-24-2023 MCV (RBC) [Entitic vol] 87.4 fL 81-99 [facility] Hematocrit Auto (Bld) [Volum e fraction]Ordered By: Deven David on 01-24-2023 Hematocrit (Bld) [Volume fraction] 43.6 % 37-47 [facility] Hemoglobin in reticulocytes (mass per reticulocyte)Ordered By: Deven David on 01-24-2023 Hemoglobin (Reticulocytes) [Entitic mass] 33.1 pg 30-35 [facility] Iron measurement (mass/mass) Ordered By: Deven David on 01-24-2023 Iron (Unsp spec) [Mass/Mass] 65 ug/dL 50-170 [facility] Laboratory - Chemistry and C hemistry - challengeOrdered By: Deven David on 01-24-2023 ALP [Catalytic activity/Vol] 103 U/L 45-117 [facility] ALT [Catalytic activity/Vol] 27 U/L 13-56 [facility] CO2 [Moles/Vol] 26.0 mmol/L 21.0-32.0 [facility] Cobalamin (Vitamin B12) [Mass/Vol] 1566 pg/mL 211-911 [facility] Globulin (S) [Mass/Vol] 3.5 g/dL 2.2-4.2 [facility] Urea nitrogen/Creatinine [Mass ratio] 31.6 mg/mg 10-20 [facility] Laboratory - Hematology and Cell countsOrdered By: Deven David on 01-24-2023 Erythrocyte distribution width (RBC) [Entitic vol] 68.4 fL 35.1-43.9 [facility] Erythrocyte distribution width (RBC) [Ratio] 22.3 % 11.6-14.6 [facility] Immature granulocytes/100 WBC (Bld) 0.300 % 0.0-0.9 [facility] Comment on above: IG% - Immature Granu locytes (promyelocytes, myelocytes and metamyelocytes) > 1% indicates that a LEFT SHIFT is Present. MCH (RBC) [Entitic mass] 28.1 pg 27.0-32.0 [facility] Nucleated RBC/100 WBC (Bld) [Ratio] 0 % 0-5 [facility] MCHC Auto (RBC) [Mass/Vol]Or dered By: Deven David on 01-24-2023 MCHC (RBC) [Mass/Vol] 32.1 g/dL 32-36 [facility] No Panel InformationOrdered By: Deven David on 01-24-2023 Estimated GFR (MDRD) Amer 127 mL/min >60 [facility] Comment on above: GFR Calc Estimated GFR (MDRD) Non-Af Amer 105 mL/min >60 [facility] Comment on above: Non- GFR Calc Immature Reticulocyte Fraction 13.50 % 3.00-15.90 [facility] Reticulocyte Count 0.97 % 0.5-1.5 [facility] Total Iron Binding Capacity 281 ug/dL 250-450 [facility] Platelets bldOrdered By: Armando David on 01-24-2023 Platelets (Bld) [#/Vol] 386 10*3/uL 150-450 [facility] Serum or plasma albumin uche urement (mass/volume)Ordered By: Deven David on 01-24-2023 Albumin [Mass/Vol] 3.5 g/dL 3.2-5.0 [facility] Serum or plasma albumin/glob ulin mass ratioOrdered By: Deven David on 01-24-2023 Albumin/Globulin [Mass ratio] 1.0 {ratio} 0.9-2.4 [facility] Serum or plasma calcium uche urement (mass/volume)Ordered By: Deven David on 01-24-2023 Calcium [Mass/Vol] 9.5 mg/dL 8.5-10.1 [facility] Serum or plasma creatinine m easurement (mass/volume)Ordered By: Deven [facility] on 01-24-2023 Creatinine [Mass/Vol] 0.63 mg/dL 0.55-1.02 [facility] Comment on above: The validity of the calculated GFR & GFRAA in patients over 70 years has not been determined. Clinical correlation is essential. Serum or plasma ferritin sangeetha surement (mass/volume)Ordered By: Deven Bauer on 01-24-2023 Ferritin [Mass/Vol] 89 ng/mL 8-252 [facility] Serum or plasma folate measu rement (mass/volume)Ordered By: [facility] on 01-24-2023 Folate [Mass/Vol] 7.60 ng/mL 3.1-55.4 [facility] Serum or plasma iron saturat ion measurement (mass fraction)Ordered By: [facility] on 01-24-2023 Iron saturation [Mass fraction] 23.1 % 15.0-55.0 [facility] Serum or plasma urea nitroge n measurement (mass/volume)Ordered By: Deven [facility] on 01-24-2023 Urea nitrogen [Mass/Vol] 20 mg/dL 7-18 [facility] Thin prep Papanicolaou smear with manual screeningOrdered By: [facility] on 01-24-2023 Thin prep Papanicolaou smear with manual screening 20 U/L 15-37 [facility] Thin prep Papanicolaou smear with manual screening 6 5-15 [facility] Absolute lymphocyte countOrd ered By: Shashank Tai on 11-22-2022 Lymphocytes Auto (Unsp spec) [#/Vol] 2.99 10*3/uL 0.83-4.51 [facility] Basophil percentageOrdered B y: Shashank Tai on 11-22-2022 Basophils/100 WBC (Bld) 0.9 % 0-1 [facility] Bilirubin [Mass/Vol] 0.10 mg/dL 0.20-1.00 [facility] Comment on above: For patients on eltr ombopag therapy, use of Dimension Matthews TBIL is not recommended. Chloride [Moles/Vol] 107 mmol/L 98-107 [facility] Eosinophils/100 WBC (Bld) 2.2 % 0-5 [facility] Glucose [Mass/Vol] 178 mg/dL 74-106 [facility] Comment on above: Fasting Glucose resu lt greater than or equal to 126 mg/dL suggests DIABETES MELLITUS per A.D.A. criteria. Neutrophils (Bld) [#/Vol] 5.0 10*3/uL 2.0-7.7 [facility] Neutrophils/100 WBC (Bld) 56.5 % 47-70 [facility] Potassium [Moles/Vol] 4.0 mmol/L 3.5-5.1 [facility] Protein [Mass/Vol] 6.5 g/dL 6.4-8.2 [facility] Sodium [Moles/Vol] 141 mmol/L 136-145 [facility] WBC (Bld) [#/Vol] 8.9 10*3/uL 4.4-11.0 [facility] Blood erythrocytes count (nu mber/volume)Ordered By: Shashank Tai on 11-22-2022 RBC (Bld) [#/Vol] 4.24 10*6/uL 4.2-5.4 [facility] Blood hemoglobin measurement (mass/volume)Ordered By: Shashank Tai on 11-22-2022 Hemoglobin (Bld) [Mass/Vol] 10.6 g/dL 12.0-15.0 [facility] Blood lymphocytes/100 leukoc ytesOrdered By: Shashank Tai on 11-22-2022 Lymphocytes/100 WBC (Bld) 33.6 % 19-41 [facility] Blood monocytes/100 leukocyt esOrdered By: Shashank Tai on 11-22-2022 Monocytes/100 WBC (Bld) 6.5 % 0-10 [facility] Blood platelet mean volumeOr dered By: Shashank Tai on 11-22-2022 Platelet mean volume (Bld) [Entitic vol] 9.3 fL 6.2-12.0 [facility] Determination of erythrocyte mean corpuscular volume (MCV)Ordered By: Shashank Tai on 11-22-2022 MCV (RBC) [Entitic vol] 79.2 fL 81-99 [facility] Hematocrit Auto (Bld) [Volum e fraction]Ordered By: Shashank Tai on 11-22-2022 Hematocrit (Bld) [Volume fraction] 33.6 % 37-47 [facility] Laboratory - Chemistry and C hemistry - challengeOrdered By: Shashank Tai on 11-22-2022 ALP [Catalytic activity/Vol] 85 U/L 45-117 [facility] ALT [Catalytic activity/Vol] 17 U/L 13-56 [facility] CO2 [Moles/Vol] 28.0 mmol/L 21.0-32.0 [facility] Globulin (S) [Mass/Vol] 3.0 g/dL 2.2-4.2 [facility] Urea nitrogen/Creatinine [Mass ratio] 19.6 mg/mg 10-20 [facility] Laboratory - Hematology and Cell countsOrdered By: Shashank Tai on 11-22-2022 Erythrocyte distribution width (RBC) [Entitic vol] 49.0 fL 35.1-43.9 [facility] Erythrocyte distribution width (RBC) [Ratio] 17.2 % 11.6-14.6 [facility] Immature granulocytes/100 WBC (Bld) 0.300 % 0.0-0.9 [facility] Comment on above: IG% - Immature Granu locytes (promyelocytes, myelocytes and metamyelocytes) > 1% indicates that a LEFT SHIFT is Present. MCH (RBC) [Entitic mass] 25.0 pg 27.0-32.0 [facility] Nucleated RBC/100 WBC (Bld) [Ratio] 0 % 0-5 [facility] MCHC Auto (RBC) [Mass/Vol]Or dered By: Shashank Tai on 11-22-2022 MCHC (RBC) [Mass/Vol] 31.5 g/dL 32-36 [facility] No Panel InformationOrdered By: Shashank Tai on 11-22-2022 Estimated GFR (MDRD) Amer 132 mL/min >60 [facility] Comment on above: GFR Calc Estimated GFR (MDRD) Non-Af Amer 109 mL/min >60 [facility] Comment on above: Non- GFR Calc Thyroid Stimulating Hormone (TSH) 1.88 uIU/mL 0.358-3.74 [facility] Platelets bldOrdered By: Shashank Tai on 11-22-2022 Platelets (Bld) [#/Vol] 463 10*3/uL 150-450 [facility] Serum or plasma albumin uche urement (mass/volume)Ordered By: Shashank Tai on 11-22-2022 Albumin [Mass/Vol] 3.5 g/dL 3.2-5.0 [facility] Serum or plasma albumin/glob ulin mass ratioOrdered By: Shashank Tai on 11-22-2022 Albumin/Globulin [Mass ratio] 1.2 {ratio} 0.9-2.4 [facility] Serum or plasma calcium uche urement (mass/volume)Ordered By: Shashank Tai on 11-22-2022 Calcium [Mass/Vol] 9.0 mg/dL 8.5-10.1 [facility] Serum or plasma creatinine m easurement (mass/volume)Ordered By: Shashank Tai on 11-22-2022 Creatinine [Mass/Vol] 0.61 mg/dL 0.55-1.02 [facility] Comment on above: The validity of the calculated GFR & GFRAA in patients over 70 years has not been determined. Clinical correlation is essential. Serum or plasma urea nitroge n measurement (mass/volume)Ordered By: Shashank Tai on 11-22-2022 Urea nitrogen [Mass/Vol] 12 mg/dL 7-18 [facility] Thin prep Papanicolaou smear with manual screeningOrdered By: Shashank Tai on 11-22-2022 Thin prep Papanicolaou smear with manual screening 16 U/L 15-37 [facility] Thin prep Papanicolaou smear with manual screening 6 5-15 [facility] Iron measurement (mass/mass) Ordered By: Deven David on 11-13-2022 Iron (Unsp spec) [Mass/Mass] 22 ug/dL 50-170 [facility] No Panel InformationOrdered By: Deven David on 11-13-2022 Total Iron Binding Capacity 423 ug/dL 250-450 [facility] 423 ug/dL 250-450 [facility] Serum or plasma ferritin sangeetha surement (mass/volume)Ordered By: Deven David on 11-13-2022 Ferritin [Mass/Vol] 4 ng/mL 8-252 [facility] Serum or plasma iron saturat ion measurement (mass fraction)Ordered By: Deven David on 11-13-2022 Iron saturation [Mass fraction] 5.2 % 15.0-55.0 [facility] Absolute lymphocyte countOrd ered By: Dr. David on 09-23-2022 Lymphocytes Auto (Unsp spec) [#/Vol] 3.92 10*3/uL 0.83-4.51 [facility] Basophil percentageOrdered B y: Dr. David on 09-23-2022 Basophils/100 WBC (Bld) 1.1 % 0-1 [facility] Bilirubin [Mass/Vol] 0.20 mg/dL 0.20-1.00 [facility] Comment on above: For patients on eltr ombopag therapy, use of Dimension Matthews TBIL is not recommended. Chloride [Moles/Vol] 108 mmol/L 98-107 [facility] Eosinophils/100 WBC (Bld) 2.7 % 0-5 [facility] Glucose [Mass/Vol] 156 mg/dL 74-106 [facility] Comment on above: Fasting Glucose resu lt greater than or equal to 126 mg/dL suggests DIABETES MELLITUS per A.D.A. criteria. LDH [Catalytic activity/Vol] 167 U/L 84-246 [facility] Neutrophils (Bld) [#/Vol] 4.8 10*3/uL 2.0-7.7 [facility] Neutrophils/100 WBC (Bld) 48.5 % 47-70 [facility] Potassium [Moles/Vol] 3.9 mmol/L 3.5-5.1 [facility] Protein [Mass/Vol] 7.0 g/dL 6.4-8.2 [facility] Sodium [Moles/Vol] 137 mmol/L 136-145 [facility] WBC (Bld) [#/Vol] 10.0 10*3/uL 4.4-11.0 [facility] Blood erythrocytes count (nu mber/volume)Ordered By: Dr. David on 09-23-2022 RBC (Bld) [#/Vol] 3.86 10*6/uL 4.2-5.4 [facility] Blood hemoglobin measurement (mass/volume)Ordered By: Dr. David on 09-23-2022 Hemoglobin (Bld) [Mass/Vol] 10.1 g/dL 12.0-15.0 [facility] Blood lymphocytes/100 leukoc ytesOrdered By: Dr. David on 09-23-2022 Lymphocytes/100 WBC (Bld) 39.3 % 19-41 [facility] Blood monocytes/100 leukocyt esOrdered By: Dr. David on 09-23-2022 Monocytes/100 WBC (Bld) 8.1 % 0-10 [facility] Blood platelet mean volumeOr dered By: Dr. David on 09-23-2022 Platelet mean volume (Bld) [Entitic vol] 9.4 fL 6.2-12.0 [facility] Determination of erythrocyte mean corpuscular volume (MCV)Ordered By: Dr. David on 09-23-2022 MCV (RBC) [Entitic vol] 86.0 fL 81-99 [facility] Hematocrit Auto (Bld) [Volum e fraction]Ordered By: Dr. David on 09-23-2022 Hematocrit (Bld) [Volume fraction] 33.2 % 37-47 [facility] Iron measurement (mass/mass) Ordered By: Dr. David on 09-23-2022 Iron (Unsp spec) [Mass/Mass] 20 ug/dL 50-170 [facility] Laboratory - Chemistry and C hemistry - challengeOrdered By: Dr. David on 09-23-2022 ALP [Catalytic activity/Vol] 87 U/L 45-117 [facility] ALT [Catalytic activity/Vol] 21 U/L 13-56 [facility] CO2 [Moles/Vol] 26.0 mmol/L 21.0-32.0 [facility] Globulin (S) [Mass/Vol] 3.5 g/dL 2.2-4.2 [facility] Urea nitrogen/Creatinine [Mass ratio] 21.1 mg/mg 10-20 [facility] Laboratory - Hematology and Cell countsOrdered By: Dr. David on 09-23-2022 Erythrocyte distribution width (RBC) [Entitic vol] 47.7 fL 35.1-43.9 [facility] Erythrocyte distribution width (RBC) [Ratio] 15.2 % 11.6-14.6 [facility] Immature granulocytes/100 WBC (Bld) 0.300 % 0.0-0.9 [facility] Comment on above: IG% - Immature Granu locytes (promyelocytes, myelocytes and metamyelocytes) > 1% indicates that a LEFT SHIFT is Present. MCH (RBC) [Entitic mass] 26.2 pg 27.0-32.0 [facility] Nucleated RBC/100 WBC (Bld) [Ratio] 0 % 0-5 [facility] MCHC Auto (RBC) [Mass/Vol]Or dered By: Dr. David on 09-23-2022 MCHC (RBC) [Mass/Vol] 30.4 g/dL 32-36 [facility] No Panel InformationOrdered By: Dr. David on 09-23-2022 Estimated GFR (MDRD) Amer 111 mL/min >60 [facility] Comment on above: GFR Calc Estimated GFR (MDRD) Non-Af Amer 92 mL/min >60 [facility] Comment on above: Non- GFR Calc Total Iron Binding Capacity 439 ug/dL 250-450 [facility] Platelets bldOrdered By: Dr. David on 09-23-2022 Platelets (Bld) [#/Vol] 538 10*3/uL 150-450 [facility] Serum or plasma albumin uche urement (mass/volume)Ordered By: Dr. David on 09-23-2022 Albumin [Mass/Vol] 3.5 g/dL 3.2-5.0 [facility] Serum or plasma albumin/glob ulin mass ratioOrdered By: Dr. David on 09-23-2022 Albumin/Globulin [Mass ratio] 1.0 {ratio} 0.9-2.4 [facility] Serum or plasma calcium uche urement (mass/volume)Ordered By: Dr. David on 09-23-2022 Calcium [Mass/Vol] 9.2 mg/dL 8.5-10.1 [facility] Serum or plasma creatinine m easurement (mass/volume)Ordered By: Dr. David on 09-23-2022 Creatinine [Mass/Vol] 0.71 mg/dL 0.55-1.02 [facility] Comment on above: The validity of the calculated GFR & GFRAA in patients over 70 years has not been determined. Clinical correlation is essential. Serum or plasma ferritin sangeetha surement (mass/volume)Ordered By: Dr. David on 09-23-2022 Ferritin [Mass/Vol] 4 ng/mL 8-252 [facility] Serum or plasma iron saturat ion measurement (mass fraction)Ordered By: Dr. David on 09-23-2022 Iron saturation [Mass fraction] 4.6 % 15.0-55.0 [facility] Serum or plasma urea nitroge n measurement (mass/volume)Ordered By: Dr. David on 09-23-2022 Urea nitrogen [Mass/Vol] 15 mg/dL 7-18 [facility] Thin prep Papanicolaou smear with manual screeningOrdered By: Dr. David on 09-23-2022 Thin prep Papanicolaou smear with manual screening 13 U/L 15-37 [facility] Thin prep Papanicolaou smear with manual screening 3 5-15 [facility] Absolute lymphocyte countOrd ered By: Dr. Tai on 08-27-2022 Lymphocytes Auto (Unsp spec) [#/Vol] 3.47 10*3/uL 0.83-4.51 [facility] Basophil percentageOrdered B y: Dr. Tai on 08-27-2022 Basophils/100 WBC (Bld) 1.3 % 0-1 [facility] Eosinophils/100 WBC (Bld) 3.0 % 0-5 [facility] Neutrophils (Bld) [#/Vol] 6.4 10*3/uL 2.0-7.7 [facility] Neutrophils/100 WBC (Bld) 58.8 % 47-70 [facility] WBC (Bld) [#/Vol] 11.0 10*3/uL 4.4-11.0 [facility] Blood erythrocytes count (nu mber/volume)Ordered By: Dr. Tai on 08-27-2022 RBC (Bld) [#/Vol] 3.40 10*6/uL 4.2-5.4 [facility] Blood hemoglobin measurement (mass/volume)Ordered By: Dr. Tai on 08-27-2022 Hemoglobin (Bld) [Mass/Vol] 9.6 g/dL 12.0-15.0 [facility] Blood lymphocytes/100 leukoc ytesOrdered By: Dr. Tai on 08-27-2022 Lymphocytes/100 WBC (Bld) 31.7 % 19-41 [facility] Blood monocytes/100 leukocyt esOrdered By: Dr. Tai on 08-27-2022 Monocytes/100 WBC (Bld) 5.0 % 0-10 [facility] Blood platelet mean volumeOr dered By: Dr. Tai on 08-27-2022 Platelet mean volume (Bld) [Entitic vol] 9.3 fL 6.2-12.0 [facility] Determination of erythrocyte mean corpuscular volume (MCV)Ordered By: Dr. Tai on 08-27-2022 MCV (RBC) [Entitic vol] 90.3 fL 81-99 [facility] Hematocrit Auto (Bld) [Volum e fraction]Ordered By: Dr. Tai on 08-27-2022 Hematocrit (Bld) [Volume fraction] 30.7 % 37-47 [facility] INR in Blood by Coagulation assayOrdered By: Dr. Tai on 08-27-2022 INR Coag (Bld) [Relative time] 1.3 {INR} [facility] Laboratory - CoagulationOrde red By: Dr. Tai on 08-27-2022 PT Coag (PPP) [Time] 15.6 s 11.7-14.9 [facility] Laboratory - Hematology and Cell countsOrdered By: Dr. Tai on 08-27-2022 Erythrocyte distribution width (RBC) [Entitic vol] 46.9 fL 35.1-43.9 [facility] Erythrocyte distribution width (RBC) [Ratio] 14.3 % 11.6-14.6 [facility] Immature granulocytes/100 WBC (Bld) 0.200 % 0.0-0.9 [facility] Comment on above: IG% - Immature Granu locytes (promyelocytes, myelocytes and metamyelocytes) > 1% indicates that a LEFT SHIFT is Present. MCH (RBC) [Entitic mass] 28.2 pg 27.0-32.0 [facility] Nucleated RBC/100 WBC (Bld) [Ratio] 0 % 0-5 [facility] MCHC Auto (RBC) [Mass/Vol]Or dered By: Dr. Tai on 08-27-2022 MCHC (RBC) [Mass/Vol] 31.3 g/dL 32-36 [facility] Platelets bldOrdered By: Dr. Tai on 08-27-2022 Platelets (Bld) [#/Vol] 503 10*3/uL 150-450 [facility] Laboratory - Drug toxicology Ordered By: Dr. Chavez on 08-23-2022 Amphetamines Ql (U) Negative <1000 ng/mL [facility] Benzodiazepines Ql (U) Negative < 200 ng/mL [facility] Cannabinoids Screen Ql (U) Negative < 50 ng/mL [facility] Cocaine Ql (U) Negative < 300 ng/mL [facility] Opiates Ql (U) Negative < 300 ng/mL [facility] No Panel InformationOrdered By: Dr. Chavez on 08-23-2022 MDMA (Ecstasy) Screen Negative < 500 ng/mL [facility] Urine Barbiturates Screen Negative < 200 ng/mL [facility] Urine Drug Screen Comment [facility] Comment on above: CONFIRMATORY TESTING FOR ALL POSITIVE URINE DRUG SCREENRESULTS WILL ONLY BE SENT OUT UPON PHYSICIAN ORDER. VISTA Urine Drug Screen methods provide only preliminaryanalytical test results. A more specific alternate chemicalmethod must be used in order to obtain a confirmedanalytical result. Gas chromatography/mass spectrometery(GC/MS) is the preferred confirmatory method. Clinicalconsideration and professional judgement should be appliedto any drug of abuse test result, particularly whenpreliminary positive results are used. URINE TCA TESTING MUST BE ORDERED SEPARATELY. USE TESTMNEMONIC: [facility] Urine Methadone Screen Negative < 300 ng/mL [facility] Urine phencyclidine (PCP) de tectionOrdered By: Dr. Chavez on 08-23-2022 Phencyclidine Ql (U) Negative < 25 ng/mL [facility] Absolute lymphocyte countOrd ered By: Dr. Tai on 08-22-2022 Lymphocytes Auto (Unsp spec) [#/Vol] 2.22 10*3/uL 0.83-4.51 [facility] Basophil percentageOrdered B y: Dr. Tai on 08-22-2022 Basophils/100 WBC (Bld) 1.2 % 0-1 [facility] Bilirubin [Mass/Vol] 0.20 mg/dL 0.20-1.00 [facility] Comment on above: For patients on eltr ombopag therapy, use of Dimension Matthews TBIL is not recommended. Chloride [Moles/Vol] 108 mmol/L 98-107 [facility] Eosinophils/100 WBC (Bld) 5.0 % 0-5 [facility] Glucose [Mass/Vol] 160 mg/dL 74-106 [facility] Comment on above: Fasting Glucose resu lt greater than or equal to 126 mg/dL suggests DIABETES MELLITUS per A.D.A. criteria. Neutrophils (Bld) [#/Vol] 3.5 10*3/uL 2.0-7.7 [facility] Neutrophils/100 WBC (Bld) 53.4 % 47-70 [facility] Potassium [Moles/Vol] 4.2 mmol/L 3.5-5.1 [facility] Protein [Mass/Vol] 6.3 g/dL 6.4-8.2 [facility] Sodium [Moles/Vol] 139 mmol/L 136-145 [facility] WBC (Bld) [#/Vol] 6.6 10*3/uL 4.4-11.0 [facility] Blood erythrocytes count (nu mber/volume)Ordered By: Dr. Tai on 08-22-2022 RBC (Bld) [#/Vol] 3.09 10*6/uL 4.2-5.4 [facility] Blood hemoglobin measurement (mass/volume)Ordered By: Dr. Tai on 08-22-2022 Hemoglobin (Bld) [Mass/Vol] 8.8 g/dL 12.0-15.0 [facility] Blood lymphocytes/100 leukoc ytesOrdered By: Dr. Tai on 08-22-2022 Lymphocytes/100 WBC (Bld) 33.7 % 19-41 [facility] Blood monocytes/100 leukocyt esOrdered By: Dr. Tai on 08-22-2022 Monocytes/100 WBC (Bld) 6.5 % 0-10 [facility] Blood platelet mean volumeOr dered By: Dr. Tai on 08-22-2022 Platelet mean volume (Bld) [Entitic vol] 9.4 fL 6.2-12.0 [facility] Determination of erythrocyte mean corpuscular volume (MCV)Ordered By: Dr. Tai on 08-22-2022 MCV (RBC) [Entitic vol] 90.6 fL 81-99 [facility] Hematocrit Auto (Bld) [Volum e fraction]Ordered By: Dr. Tai on 08-22-2022 Hematocrit (Bld) [Volume fraction] 28.0 % 37-47 [facility] Laboratory - Chemistry and C hemistry - challengeOrdered By: Dr. Tai on 08-22-2022 ALP [Catalytic activity/Vol] 65 U/L 45-117 [facility] ALT [Catalytic activity/Vol] 15 U/L 13-56 [facility] CO2 [Moles/Vol] 25.0 mmol/L 21.0-32.0 [facility] Globulin (S) [Mass/Vol] 2.9 g/dL 2.2-4.2 [facility] Urea nitrogen/Creatinine [Mass ratio] 18.8 mg/mg 10-20 [facility] Laboratory - Hematology and Cell countsOrdered By: Dr. Tai on 08-22-2022 Erythrocyte distribution width (RBC) [Entitic vol] 46.6 fL 35.1-43.9 [facility] Erythrocyte distribution width (RBC) [Ratio] 14.3 % 11.6-14.6 [facility] Immature granulocytes/100 WBC (Bld) 0.200 % 0.0-0.9 [facility] Comment on above: IG% - Immature Granu locytes (promyelocytes, myelocytes and metamyelocytes) > 1% indicates that a LEFT SHIFT is Present. MCH (RBC) [Entitic mass] 28.5 pg 27.0-32.0 [facility] Nucleated RBC/100 WBC (Bld) [Ratio] 0 % 0-5 [facility] MCHC Auto (RBC) [Mass/Vol]Or dered By: Dr. Tai on 08-22-2022 MCHC (RBC) [Mass/Vol] 31.4 g/dL 32-36 [facility] No Panel InformationOrdered By: Dr. Tai on 08-22-2022 Estimated GFR (MDRD) Amer 115 mL/min >60 [facility] Comment on above: GFR Calc Estimated GFR (MDRD) Non-Af Amer 95 mL/min >60 [facility] Comment on above: Non- GFR Calc Thyroid Stimulating Hormone (TSH) 1.94 uIU/mL 0.358-3.74 [facility] Vitamin D 25-Hydroxy 15.8 ng/mL [facility] Comment on above: Vitamin D 25(OH) Sta tus Range Deficiency <20 ng/mL (50nmol/L) Insufficiency 20 - 30 ng/mL (50 - 75 nmol/L) Sufficiency 30 - 100 ng/mL (75 - 250 nmol/L) Toxicity >100 ng/mL (>250 nmol/L) Platelets bldOrdered By: Dr. Tai on 08-22-2022 Platelets (Bld) [#/Vol] 490 10*3/uL 150-450 [facility] Serum or plasma albumin uche urement (mass/volume)Ordered By: Dr. Tai on 08-22-2022 Albumin [Mass/Vol] 3.4 g/dL 3.2-5.0 [facility] Serum or plasma albumin/glob ulin mass ratioOrdered By: Dr. Tai on 08-22-2022 Albumin/Globulin [Mass ratio] 1.2 {ratio} 0.9-2.4 [facility] Serum or plasma calcium uche urement (mass/volume)Ordered By: Dr. Tai on 08-22-2022 Calcium [Mass/Vol] 9.1 mg/dL 8.5-10.1 [facility] Serum or plasma creatinine m easurement (mass/volume)Ordered By: Dr. Tai on 08-22-2022 Creatinine [Mass/Vol] 0.69 mg/dL 0.55-1.02 [facility] Comment on above: The validity of the calculated GFR & GFRAA in patients over 70 years has not been determined. Clinical correlation is essential. Serum or plasma urea nitroge n measurement (mass/volume)Ordered By: Dr. Tai on 08-22-2022 Urea nitrogen [Mass/Vol] 13 mg/dL 7-18 [facility] Thin prep Papanicolaou smear with manual screeningOrdered By: Dr. Tai on 08-22-2022 Thin prep Papanicolaou smear with manual screening 13 U/L 15-37 [facility] Thin prep Papanicolaou smear with manual screening 6 5-15 [facility] Absolute lymphocyte countOrd ered By: Dr. Castro on 07-31-2022 Lymphocytes Auto (Unsp spec) [#/Vol] 4.27 10*3/uL 0.83-4.51 [facility] Basophil percentageOrdered B y: Dr. Castro on 07-31-2022 Basophils/100 WBC (Bld) 1.1 % 0-1 [facility] Chloride [Moles/Vol] 107 mmol/L 98-107 [facility] Eosinophils/100 WBC (Bld) 2.6 % 0-5 [facility] Glucose [Mass/Vol] 217 mg/dL 74-106 [facility] Comment on above: Glucose result great er than or equal to 200 mg/dLsuggests DIABETES MELLITUS per A.D.A. criteria. Neutrophils (Bld) [#/Vol] 4.4 10*3/uL 2.0-7.7 [facility] Neutrophils/100 WBC (Bld) 45.5 % 47-70 [facility] Potassium [Moles/Vol] 4.0 mmol/L 3.5-5.1 [facility] Sodium [Moles/Vol] 141 mmol/L 136-145 [facility] WBC (Bld) [#/Vol] 9.6 10*3/uL 4.4-11.0 [facility] Blood erythrocytes count (nu mber/volume)Ordered By: Dr. Castro on 07-31-2022 RBC (Bld) [#/Vol] 3.31 10*6/uL 4.2-5.4 [facility] Blood hemoglobin measurement (mass/volume)Ordered By: Dr. Castro on 07-31-2022 Hemoglobin (Bld) [Mass/Vol] 10.1 g/dL 12.0-15.0 [facility] Blood lymphocytes/100 leukoc ytesOrdered By: Dr. Castro on 07-31-2022 Lymphocytes/100 WBC (Bld) 44.3 % 19-41 [facility] Blood monocytes/100 leukocyt esOrdered By: Dr. Castro on 07-31-2022 Monocytes/100 WBC (Bld) 5.9 % 0-10 [facility] Blood platelet mean volumeOr dered By: Dr. Castro on 03-01-2023 Platelet mean volume (Bld) [Entitic vol] 10.1 fL 6.2-12.0 [facility] Determination of erythrocyte mean corpuscular volume (MCV)Ordered By: Dr. Castro on 07-31-2022 MCV (RBC) [Entitic vol] 91.5 fL 81-99 [facility] Hematocrit Auto (Bld) [Volum e fraction]Ordered By: Dr. Castro on 07-31-2022 Hematocrit (Bld) [Volume fraction] 30.3 % 37-47 [facility] INR in Blood by Coagulation assayOrdered By: Dr. Castro on 07-31-2022 INR Coag (Bld) [Relative time] 2.0 {INR} [facility] Laboratory - Chemistry and C hemistry - challengeOrdered By: Dr. Castro on 07-31-2022 CO2 [Moles/Vol] 28.0 mmol/L 21.0-32.0 [facility] Urea nitrogen/Creatinine [Mass ratio] 22.6 mg/mg 10-20 [facility] Laboratory - CoagulationOrde red By: Dr. Castro on 07-31-2022 PT Coag (PPP) [Time] 22.6 s 11.7-14.9 [facility] Laboratory - Hematology and Cell countsOrdered By: Dr. Castro on 07-31-2022 Erythrocyte distribution width (RBC) [Entitic vol] 49.3 fL 35.1-43.9 [facility] Erythrocyte distribution width (RBC) [Ratio] 14.6 % 11.6-14.6 [facility] Immature granulocytes/100 WBC (Bld) 0.600 % 0.0-0.9 [facility] Comment on above: IG% - Immature Granu locytes (promyelocytes, myelocytes and metamyelocytes) > 1% indicates that a LEFT SHIFT is Present. MCH (RBC) [Entitic mass] 30.5 pg 27.0-32.0 [facility] Nucleated RBC/100 WBC (Bld) [Ratio] 0 % 0-5 [facility] MCHC Auto (RBC) [Mass/Vol]Or dered By: Dr. Castro on 07-31-2022 MCHC (RBC) [Mass/Vol] 33.3 g/dL 32-36 [facility] No Panel InformationOrdered By: Dr. Castro on 07-31-2022 Estimated Creatinine Clearance Calc 103.22 ml/min [facility] Estimated GFR (MDRD) Amer 130 mL/min >60 [facility] Comment on above: GFR Calc Estimated GFR (MDRD) Non-Af Amer 107 mL/min >60 [facility] Comment on above: Non- GFR Calc Platelets bldOrdered By: Dr. Castro on 07-31-2022 Platelets (Bld) [#/Vol] 404 10*3/uL 150-450 [facility] Serum or plasma calcium uche urement (mass/volume)Ordered By: Dr. Castro on 07-31-2022 Calcium [Mass/Vol] 9.3 mg/dL 8.5-10.1 [facility] Serum or plasma creatinine m easurement (mass/volume)Ordered By: Dr. Castro on 07-31-2022 Creatinine [Mass/Vol] 0.62 mg/dL 0.55-1.02 [facility] Comment on above: The validity of the calculated GFR & GFRAA in patients over 70 years has not been determined. Clinical correlation is essential. Serum or plasma urea nitroge n measurement (mass/volume)Ordered By: Dr. Castro on 07-31-2022 Urea nitrogen [Mass/Vol] 14 mg/dL 7-18 [facility] Thin prep Papanicolaou smear with manual screeningOrdered By: Dr. Castro on 07-31-2022 Thin prep Papanicolaou smear with manual screening 6 5-15 [facility] Absolute lymphocyte countOrd ered By: Dr. Mello on 07-30-2022 Lymphocytes Auto (Unsp spec) [#/Vol] 5.37 10*3/uL 0.83-4.51 [facility] Basophil percentageOrdered B y: Dr. Mello on 07-30-2022 Basophils/100 WBC (Bld) 0.9 % 0-1 [facility] Chloride [Moles/Vol] 102 mmol/L 98-107 [facility] Eosinophils/100 WBC (Bld) 1.3 % 0-5 [facility] Glucose [Mass/Vol] 214 mg/dL 74-106 [facility] Comment on above: Glucose result great er than or equal to 200 mg/dLsuggests DIABETES MELLITUS per A.D.A. criteria. Neutrophils (Bld) [#/Vol] 8.5 10*3/uL 2.0-7.7 [facility] Neutrophils/100 WBC (Bld) 55.8 % 47-70 [facility] Potassium [Moles/Vol] 3.8 mmol/L 3.5-5.1 [facility] Sodium [Moles/Vol] 135 mmol/L 136-145 [facility] WBC (Bld) [#/Vol] 15.2 10*3/uL 4.4-11.0 [facility] Blood erythrocytes count (nu mber/volume)Ordered By: Dr. Mello on 07-30-2022 RBC (Bld) [#/Vol] 3.87 10*6/uL 4.2-5.4 [facility] Blood hemoglobin measurement (mass/volume)Ordered By: Dr. Mello on 07-30-2022 Hemoglobin (Bld) [Mass/Vol] 11.6 g/dL 12.0-15.0 [facility] Blood lymphocytes/100 leukoc ytesOrdered By: Dr. Mello on 07-30-2022 Lymphocytes/100 WBC (Bld) 35.3 % 19-41 [facility] Blood manual differential co mment interpretation (narrative result)Ordered By: Dr. Mello on 07-30-2022 Manual differential comment [place] (Bld) [Interp] SCANNED [facility] Blood monocytes/100 leukocyt esOrdered By: Dr. Mello on 07-30-2022 Monocytes/100 WBC (Bld) 5.9 % 0-10 [facility] Blood platelet mean volumeOr dered By: Dr. Mello on 07-30-2022 Platelet mean volume (Bld) [Entitic vol] 10.0 fL 6.2-12.0 [facility] Determination of erythrocyte mean corpuscular volume (MCV)Ordered By: Dr. Mello on 07-30-2022 MCV (RBC) [Entitic vol] 91.7 fL 81-99 [facility] Hematocrit Auto (Bld) [Volum e fraction]Ordered By: Dr. Mello on 07-30-2022 Hematocrit (Bld) [Volume fraction] 35.5 % 37-47 [facility] INR in Blood by Coagulation assayOrdered By: Dr. Mello on 07-30-2022 INR Coag (Bld) [Relative time] 1.8 {INR} [facility] Laboratory - Chemistry and C hemistry - challengeOrdered By: Dr. Mello on 07-30-2022 CO2 [Moles/Vol] 26.0 mmol/L 21.0-32.0 [facility] Urea nitrogen/Creatinine [Mass ratio] 18.7 mg/mg 10-20 [facility] Laboratory - CoagulationOrde red By: Dr. Mello on 07-30-2022 PT Coag (PPP) [Time] 20.7 s 11.7-14.9 [facility] Laboratory - Hematology and Cell countsOrdered By: Dr. Mello on 07-30-2022 Erythrocyte distribution width (RBC) [Entitic vol] 48.6 fL 35.1-43.9 [facility] Erythrocyte distribution width (RBC) [Ratio] 14.5 % 11.6-14.6 [facility] Immature granulocytes/100 WBC (Bld) 0.800 % 0.0-0.9 [facility] Comment on above: IG% - Immature Granu locytes (promyelocytes, myelocytes and metamyelocytes) > 1% indicates that a LEFT SHIFT is Present. MCH (RBC) [Entitic mass] 30.0 pg 27.0-32.0 [facility] Nucleated RBC/100 WBC (Bld) [Ratio] 0 % 0-5 [facility] MCHC Auto (RBC) [Mass/Vol]Or dered By: Dr. Mello on 07-30-2022 MCHC (RBC) [Mass/Vol] 32.7 g/dL 32-36 [facility] No Panel InformationOrdered By: Dr. Mello on 07-30-2022 Estimated Creatinine Clearance Calc 59.81 ml/min [facility] Estimated GFR (MDRD) Amer 69 mL/min >60 [facility] Comment on above: GFR Calc Estimated GFR (MDRD) Non-Af Amer 57 mL/min >60 [facility] Comment on above: Non- GFR Calc Platelets bldOrdered By: Dr. Mello on 07-30-2022 Platelets (Bld) [#/Vol] 420 10*3/uL 150-450 [facility] Serum or plasma calcium uche urement (mass/volume)Ordered By: Dr. Mello on 07-30-2022 Calcium [Mass/Vol] 8.9 mg/dL 8.5-10.1 [facility] Serum or plasma creatinine m easurement (mass/volume)Ordered By: Dr. Mello on 07-30-2022 Creatinine [Mass/Vol] 1.07 mg/dL 0.55-1.02 [facility] Comment on above: The validity of the calculated GFR & GFRAA in patients over 70 years has not been determined. Clinical correlation is essential. Serum or plasma urea nitroge n measurement (mass/volume)Ordered By: Dr. Mello on 07-30-2022 Urea nitrogen [Mass/Vol] 20 mg/dL 7-18 [facility] Thin prep Papanicolaou smear with manual screeningOrdered By: Dr. Mello on 07-30-2022 Thin prep Papanicolaou smear with manual screening 7 5-15 [facility] Glucose Glucometer (BldC) [M ass/Vol]Ordered By: Dr. Clifton on 07-09-2022 Glucose [Mass/Vol] 180 mg/dL 74-106 [facility] Comment on above: MANAGEMENT OF PATIEN T CARE PER NURSING PROTOCOL Laboratory - Chemistry and C hemistry - challengeOrdered By: Dr. Clifton on 07-09-2022 HCG ( test) Ql (U) Negative [facility] Comment on above: Very dilute urine sp ecimens, as indicated by a low specificgravity, may not contain authorization representative levels of hCG. If is still suspected, a first morning urinespecimen should be collected 48 hours later and tested. Absolute lymphocyte countOrd ered By: Dr. David on 07-01-2022 Lymphocytes Auto (Unsp spec) [#/Vol] 4.19 10*3/uL 0.83-4.51 [facility] Basophil percentageOrdered B y: Deven David on 07-01-2022 Basophil percentage 229 mg/dL 74-106 [facility] Basophil percentage 7.2 g/dL 6.4-8.2 [facility] Basophil percentage 0.40 mg/dL 0.20-1.00 [facility] Basophil percentage 138 mmol/L 136-145 [facility] Basophil percentage 4.0 mmol/L 3.5-5.1 [facility] Basophil percentage 105 mmol/L 98-107 [facility] Basophil percentage 153 U/L 84-246 [facility] Basophils (Bld) [#/Vol] 13.4 10*3/uL 4.4-11.0 [facility] Basophils (Bld) [#/Vol] 7.9 10*3/uL 2.0-7.7 [facility] Basophils/100 WBC (Bld) 59.1 % 47-70 [facility] Basophils/100 WBC (Bld) 1.8 % 0-5 [facility] Basophil percentageOrdered B y: Dr. David on 07-01-2022 Basophils/100 WBC (Bld) 1.0 % 0-1 [facility] Bilirubin [Mass/Vol] 0.40 mg/dL 0.20-1.00 [facility] Comment on above: For patients on eltr ombopag therapy, use of Dimension Matthews TBIL is not recommended. Chloride [Moles/Vol] 105 mmol/L 98-107 [facility] Eosinophils/100 WBC (Bld) 1.8 % 0-5 [facility] Glucose [Mass/Vol] 229 mg/dL 74-106 [facility] Comment on above: Glucose result great er than or equal to 200 mg/dLsuggests DIABETES MELLITUS per A.D.A. criteria. LDH [Catalytic activity/Vol] 153 U/L 84-246 [facility] Neutrophils (Bld) [#/Vol] 7.9 10*3/uL 2.0-7.7 [facility] Neutrophils/100 WBC (Bld) 59.1 % 47-70 [facility] Potassium [Moles/Vol] 4.0 mmol/L 3.5-5.1 [facility] Protein [Mass/Vol] 7.2 g/dL 6.4-8.2 [facility] Sodium [Moles/Vol] 138 mmol/L 136-145 [facility] WBC (Bld) [#/Vol] 13.4 10*3/uL 4.4-11.0 [facility] Blood erythrocytes count (nu mber/volume)Ordered By: Dr. David on 07-01-2022 RBC (Bld) [#/Vol] 4.49 10*6/uL 4.2-5.4 [facility] Blood hemoglobin measurement (mass/volume)Ordered By: Dr. David on 07-01-2022 Hemoglobin (Bld) [Mass/Vol] 13.3 g/dL 12.0-15.0 [facility] Blood lymphocytes/100 leukoc ytesOrdered By: Dr. David on 07-01-2022 Lymphocytes/100 WBC (Bld) 31.2 % 19-41 [facility] Blood monocytes/100 leukocyt esOrdered By: Dr. David on 07-01-2022 Monocytes/100 WBC (Bld) 6.4 % 0-10 [facility] Blood platelet mean volumeOr dered By: Dr. David on 07-01-2022 Platelet mean volume (Bld) [Entitic vol] 9.9 fL 6.2-12.0 [facility] Determination of erythrocyte mean corpuscular volume (MCV)Ordered By: Dr. David on 07-01-2022 MCV (RBC) [Entitic vol] 90.0 fL 81-99 [facility] Hematocrit Auto (Bld) [Volum e fraction]Ordered By: Dr. David on 07-01-2022 Hematocrit (Bld) [Volume fraction] 40.4 % 37-47 [facility] Iron measurement (mass/mass) Ordered By: Dr. David on 07-01-2022 Iron (Unsp spec) [Mass/Mass] 39 ug/dL 50-170 [facility] Laboratory - Chemistry and C hemistry - challengeOrdered By: Dr. David on 07-01-2022 ALP [Catalytic activity/Vol] 61 U/L 45-117 [facility] ALT [Catalytic activity/Vol] 14 U/L 13-56 [facility] CO2 [Moles/Vol] 27.0 mmol/L 21.0-32.0 [facility] Globulin (S) [Mass/Vol] 3.8 g/dL 2.2-4.2 [facility] Urea nitrogen/Creatinine [Mass ratio] 17.9 mg/mg 10-20 [facility] Laboratory - Hematology and Cell countsOrdered By: Dr. David on 07-01-2022 Erythrocyte distribution width (RBC) [Entitic vol] 54.1 fL 35.1-43.9 [facility] Erythrocyte distribution width (RBC) [Ratio] 16.4 % 11.6-14.6 [facility] Immature granulocytes/100 WBC (Bld) 0.500 % 0.0-0.9 [facility] Comment on above: IG% - Immature Granu locytes (promyelocytes, myelocytes and metamyelocytes) > 1% indicates that a LEFT SHIFT is Present. MCH (RBC) [Entitic mass] 29.6 pg 27.0-32.0 [facility] Nucleated RBC/100 WBC (Bld) [Ratio] 0 % 0-5 [facility] MCHC Auto (RBC) [Mass/Vol]Or dered By: Dr. David on 07-01-2022 MCHC (RBC) [Mass/Vol] 32.9 g/dL 32-36 [facility] No Panel InformationOrdered By: Dr. David on 07-01-2022 Estimated Creatinine Clearance Calc 92.20 ml/min [facility] Estimated GFR (MDRD) Amer 109 mL/min >60 [facility] Comment on above: GFR Calc Estimated GFR (MDRD) Non-Af Amer 90 mL/min >60 [facility] Comment on above: Non- GFR Calc Total Iron Binding Capacity 451 ug/dL 250-450 [facility] No Panel InformationOrdered By: Deven David on 07-01-2022 29.6 pg 27.0-32.0 [facility] 16.4 % 11.6-14.6 [facility] 54.1 fl 35.1-43.9 [facility] 0.500 % 0.0-0.9 [facility] 0 % 0-5 [facility] 90 mL/min >60 [facility] 109 mL/min >60 [facility] 92.20 ml/min [facility] 17.9 RATIO 10-20 [facility] 3.8 g/dL 2.2-4.2 [facility] 61 U/L 45-117 [facility] 14 U/L 13-56 [facility] 27.0 mmol/L 21.0-32.0 [facility] Platelets bldOrdered By: Dr. David on 07-01-2022 Platelets (Bld) [#/Vol] 487 10*3/uL 150-450 [facility] Serum or plasma albumin uche urement (mass/volume)Ordered By: Dr. David on 07-01-2022 Albumin [Mass/Vol] 3.4 g/dL 3.2-5.0 [facility] Serum or plasma albumin/glob ulin mass ratioOrdered By: Dr. David on 07-01-2022 Albumin/Globulin [Mass ratio] 0.9 {ratio} 0.9-2.4 [facility] Serum or plasma calcium uche urement (mass/volume)Ordered By: Dr. David on 07-01-2022 Calcium [Mass/Vol] 9.0 mg/dL 8.5-10.1 [facility] Serum or plasma creatinine m easurement (mass/volume)Ordered By: Dr. David on 07-01-2022 Creatinine [Mass/Vol] 0.72 mg/dL 0.55-1.02 [facility] Comment on above: The validity of the calculated GFR & GFRAA in patients over 70 years has not been determined. Clinical correlation is essential. Serum or plasma ferritin sangeetha surement (mass/volume)Ordered By: Dr. David on 07-01-2022 Ferritin [Mass/Vol] 9 ng/mL 8-252 [facility] Serum or plasma iron saturat ion measurement (mass fraction)Ordered By: Dr. David on 07-01-2022 Iron saturation [Mass fraction] 8.6 % 15.0-55.0 [facility] Serum or plasma urea nitroge n measurement (mass/volume)Ordered By: Dr. David on 07-01-2022 Urea nitrogen [Mass/Vol] 13 mg/dL 7-18 [facility] Thin prep Papanicolaou smear with manual screeningOrdered By: Dr. David on 07-01-2022 Thin prep Papanicolaou smear with manual screening 13 U/L 15-37 [facility] Thin prep Papanicolaou smear with manual screening 6 5-15 [facility] Culture, urineOrdered By: Ayesha Paniagua on 01-13-2023 Bacteria identified Cx Nom (U) Klebsiella pneumoniae sp pneum [facility] Absolute lymphocyte countOrd ered By: Vincent Paniagua on 06-11-2022 Lymphocytes Auto (Unsp spec) [#/Vol] 3.40 10*3/uL 0.83-4.51 [facility] Basophil percentageOrdered B y: Vincent Paniagua on 06-11-2022 Basophil percentage 25-50 SEEN /hpf 0-5 [facility] Basophils/100 WBC (Bld) 0.7 % 0-1 [facility] Chloride [Moles/Vol] 109 mmol/L 98-107 [facility] Eosinophils/100 WBC (Bld) 1.4 % 0-5 [facility] Glucose [Mass/Vol] 249 mg/dL 74-106 [facility] Comment on above: Glucose result great er than or equal to 200 mg/dLsuggests DIABETES MELLITUS per A.D.A. criteria. Lactate [Moles/Vol] 1.0 mmol/L 0.4-2.0 [facility] Neutrophils (Bld) [#/Vol] 4.2 10*3/uL 2.0-7.7 [facility] Neutrophils/100 WBC (Bld) 50.4 % 47-70 [facility] Potassium [Moles/Vol] 3.7 mmol/L 3.5-5.1 [facility] Sodium [Moles/Vol] 139 mmol/L 136-145 [facility] WBC (Bld) [#/Vol] 8.4 10*3/uL 4.4-11.0 [facility] Bilirubin Test strip Ql (U)O rdered By: Vincent Paniagua on 06-11-2022 Bilirubin Ql (U) Negative Negative [facility] Blood erythrocytes count (nu mber/volume)Ordered By: Vincent Paniagua on 06-11-2022 RBC (Bld) [#/Vol] 3.80 10*6/uL 4.2-5.4 [facility] Blood hemoglobin measurement (mass/volume)Ordered By: Vincent Paniagua on 06-11-2022 Hemoglobin (Bld) [Mass/Vol] 11.3 g/dL 12.0-15.0 [facility] Blood lymphocytes/100 leukoc ytesOrdered By: Vincent Paniagua on 06-11-2022 Lymphocytes/100 WBC (Bld) 40.3 % 19-41 [facility] Blood monocytes/100 leukocyt esOrdered By: Vincent Paniagua on 06-11-2022 Monocytes/100 WBC (Bld) 7.0 % 0-10 [facility] Blood platelet mean volumeOr dered By: Vincent Paniagua on 06-11-2022 Platelet mean volume (Bld) [Entitic vol] 9.8 fL 6.2-12.0 [facility] Determination of erythrocyte mean corpuscular volume (MCV)Ordered By: Vincent Paniagua on 06-11-2022 MCV (RBC) [Entitic vol] 90.5 fL 81-99 [facility] Hematocrit Auto (Bld) [Volum e fraction]Ordered By: Vincent Paniagua on 06-11-2022 Hematocrit (Bld) [Volume fraction] 34.4 % 37-47 [facility] INR in Blood by Coagulation assayOrdered By: Vincent Paniagua on 06-11-2022 INR Coag (Bld) [Relative time] 3.5 {INR} [facility] Ketones Test strip Ql (U)Ord ered By: Vincent Paniagua on 06-11-2022 Ketones Ql (U) Negative Negative [facility] Laboratory - Chemistry and C hemistry - challengeOrdered By: Vincent Paniagua on 06-11-2022 CO2 [Moles/Vol] 25.0 mmol/L 21.0-32.0 [facility] Urea nitrogen/Creatinine [Mass ratio] 13.2 mg/mg 10 [facility] Laboratory - CoagulationOrde red By: Vincent Paniagua on 06-11-2022 PT Coag (PPP) [Time] 34.5 s 11.7-14.9 [facility] - Hematology and Cell countsOrdered By: Vincent Paniagua on 06-11-2022 Erythrocyte distribution width (RBC) [Entitic vol] 55.1 fL 35.1-43.9 [facility] Erythrocyte distribution width (RBC) [Ratio] 16.5 % 11.6-14.6 [facility] Immature granulocytes/100 WBC (Bld) 0.200 % 0.0-0.9 [facility] Comment on above: IG% - Immature Granu locytes (promyelocytes, myelocytes and metamyelocytes) > 1% indicates that a LEFT SHIFT is Present. MCH (RBC) [Entitic mass] 29.7 pg 27.0-32.0 [facility] Nucleated RBC/100 WBC (Bld) [Ratio] 0 % 0-5 [facility] MCHC Auto (RBC) [Mass/Vol]Or dered By: Vincent Paniagua on 06-11-2022 MCHC (RBC) [Mass/Vol] 32.8 g/dL 32-36 [facility] Mucus LM Ql (Urine sed)Order ed By: Vincent Paniagua on 06-11-2022 Mucus Ql (Urine sed) 0 SEEN /hpf [facility] Nitrite Test strip Ql (U)Ord ered By: Vincent Paniagua on 06-11-2022 Nitrite Ql (U) Positive Negative [facility] No Panel InformationOrdered By: Vincent Paniagua on 06-11-2022 Estimated Creatinine Clearance Calc 76.19 ml/min [facility] Estimated GFR (MDRD) Amer 92 mL/min >60 [facility] Comment on above: GFR Calc Estimated GFR (MDRD) Non-Af Amer 76 mL/min >60 [facility] Comment on above: Non- GFR Calc Platelets bldOrdered By: Alexandru Paniagua on 06-11-2022 Platelets (Bld) [#/Vol] 494 10*3/uL 150-450 [facility] Protein Test strip Ql (U)Ord ered By: Vincent Paniagua on 06-11-2022 Protein Ql (U) 30 mg/dl Negative [facility] Serum or plasma calcium uche urement (mass/volume)Ordered By: Vincent Paniagua on 06-11-2022 Calcium [Mass/Vol] 8.5 mg/dL 8.5-10.1 [facility] Serum or plasma creatinine m easurement (mass/volume)Ordered By: Vincent Paniagua on 06-11-2022 Creatinine [Mass/Vol] 0.84 mg/dL 0.55-1.02 [facility] Comment on above: The validity of the calculated GFR & GFRAA in patients over 70 years has not been determined. Clinical correlation is essential. Serum or plasma urea nitroge n measurement (mass/volume)Ordered By: Vincent Paniagua on 06-11-2022 Urea nitrogen [Mass/Vol] 11 mg/dL 7-18 [facility] Squamous epithelial cells de tection in urine sediment by light microscopyOrdered By: Vincent Paniagua on 06-11-2022 Epithelial cells.squamous LM Ql (Urine sed) 0 SEEN /hpf 5-10 [facility] Thin prep Papanicolaou smear with manual screeningOrdered By: Vincent Paniagua on 06-11-2022 Thin prep Papanicolaou smear with manual screening 5 5-15 [facility] Urine blood detectionOrdered By: Vincent Paniagua on 06-11-2022 RBC Ql (U) 150 /ul Negative [facility] RBC Ql (U) 0 SEEN /hpf 0-5 [facility] Urine clarityOrdered By: Alexandru Paniagua on 06-11-2022 Clarity (U) Sl. Cloudy Clear [facility] Urine color determinationOrd ered By: Vincent Paniagua on 06-11-2022 Color (U) Yellow Yellow [facility] Urine glucose detectionOrder ed By: Vincent Paniagua on 06-11-2022 Glucose Ql (U) 1000 mg/dl Normal [facility] Urine leukocyte esterase det ection by dipstickOrdered By: Vincent Paniagua on 06-11-2022 Leukocyte esterase Test strip Ql (U) 500 /ul Negative [facility] Urine pHOrdered By: Vincent naranjo on 06-11-2022 pH (U) 6.0 [pH] 5.0 - 8.0 [facility] Urine sediment bacteria coun t by microscopy (number/high power field)Ordered By: Vincent Paniagua on 06-11-2022 Bacteria LM.HPF (Urine sed) [#/Area] 4 /[HPF] None Seen [facility] Urine specific gravity measu rementOrdered By: Vincent Paniagua on 06-11-2022 Specific gravity (U) [Rel density] 1.010 1.002-1.030 [facility] Urobilinogen Auto test strip Ql (U)Ordered By: Vincent Paniagua on 06-11-2022 Urobilinogen Ql (U) Normal mg/dl Normal [facility] Absolute lymphocyte countOrd ered By: Dr. Tai on 05-21-2022 Lymphocytes Auto (Unsp spec) [#/Vol] 5.51 10*3/uL 0.83-4.51 [facility] Basophil percentageOrdered B y: Dr. Tai on 05-21-2022 Basophils/100 WBC (Bld) 0.4 % 0-1 [facility] Bilirubin [Mass/Vol] 0.30 mg/dL 0.20-1.00 [facility] Comment on above: For patients on eltr ombopag therapy, use of Dimension Matthews TBIL is not recommended. Chloride [Moles/Vol] 106 mmol/L 98-107 [facility] Eosinophils/100 WBC (Bld) 1.0 % 0-5 [facility] Glucose [Mass/Vol] 302 mg/dL 74-106 [facility] Comment on above: Glucose result great er than or equal to 200 mg/dLsuggests DIABETES MELLITUS per A.D.A. criteria. Neutrophils (Bld) [#/Vol] 15.4 10*3/uL 2.0-7.7 [facility] Neutrophils/100 WBC (Bld) 68.7 % 47-70 [facility] Potassium [Moles/Vol] 3.3 mmol/L 3.5-5.1 [facility] Protein [Mass/Vol] 6.6 g/dL 6.4-8.2 [facility] Sodium [Moles/Vol] 139 mmol/L 136-145 [facility] WBC (Bld) [#/Vol] 22.4 10*3/uL 4.4-11.0 [facility] Blood erythrocytes count (nu mber/volume)Ordered By: Dr. Tai on 05-21-2022 RBC (Bld) [#/Vol] 4.21 10*6/uL 4.2-5.4 [facility] Blood hemoglobin measurement (mass/volume)Ordered By: Dr. Tai on 05-21-2022 Hemoglobin (Bld) [Mass/Vol] 12.9 g/dL 12.0-15.0 [facility] Blood lymphocytes/100 leukoc ytesOrdered By: Dr. Tai on 05-21-2022 Lymphocytes/100 WBC (Bld) 24.6 % 19-41 [facility] Blood manual differential co mment interpretation (narrative result)Ordered By: Dr. Tai on 05-21-2022 Manual differential comment Montez (Bld) [Interp] SEE COMMENT [facility] Comment on above: LYMPHOCYTOSIS NOTED Blood monocytes/100 leukocyt esOrdered By: [address] Tai on 05-21-2022 Monocytes/100 WBC (Bld) 4.7 % 0-10 [facility] Blood platelet adequacy dete ction by light microscopyOrdered By: Dr. Tai on 05-21-2022 Platelets LM Ql (Bld) SLT INC ADEQ [facility] Blood platelet mean volumeOr dered By: Dr. Tai on 05-21-2022 Platelet mean volume (Bld) [Entitic vol] 10.3 fL 6.2-12.0 [facility] Determination of erythrocyte mean corpuscular volume (MCV)Ordered By: Dr. Tai on 05-21-2022 MCV (RBC) [Entitic vol] 88.4 fL 81-99 [facility] Hematocrit Auto (Bld) [Volum e fraction]Ordered By: Dr. Tai on 05-21-2022 Hematocrit (Bld) [Volume fraction] 37.2 % 37-47 [facility] Laboratory - Chemistry and C hemistry - challengeOrdered By: Dr. Tai on 05-21-2022 ALP [Catalytic activity/Vol] 55 U/L 45-117 [facility] ALT [Catalytic activity/Vol] 21 U/L 13-56 [facility] CO2 [Moles/Vol] 20.0 mmol/L 21.0-32.0 [facility] Globulin (S) [Mass/Vol] 3.3 g/dL 2.2-4.2 [facility] Urea nitrogen/Creatinine [Mass ratio] 19.9 mg/mg 10-20 [facility] Laboratory - Hematology and Cell countsOrdered By: Dr. Tai on 05-21-2022 Anisocytosis Ql (Bld) RARE [facility] Erythrocyte distribution width (RBC) [Entitic vol] 49.1 fL 35.1-43.9 [facility] Erythrocyte distribution width (RBC) [Ratio] 15.7 % 11.6-14.6 [facility] Immature granulocytes/100 WBC (Bld) 0.600 % 0.0-0.9 [facility] Comment on above: IG% - Immature Granu locytes (promyelocytes, myelocytes and metamyelocytes) > 1% indicates that a LEFT SHIFT is Present. MCH (RBC) [Entitic mass] 30.6 pg 27.0-32.0 [facility] Nucleated RBC/100 WBC (Bld) [Ratio] 0 % 0-5 [facility] MCHC Auto (RBC) [Mass/Vol]Or dered By: Dr. Tai on 05-21-2022 MCHC (RBC) [Mass/Vol] 34.7 g/dL 32-36 [facility] Macrocytes detectionOrdered By: Dr. Tai on 05-21-2022 Macrocytes Ql (Bld) RARE [facility] No Panel InformationOrdered By: Dr. Tai on 05-21-2022 Estimated GFR (MDRD) Amer 104 mL/min >60 [facility] Comment on above: GFR Calc Estimated GFR (MDRD) Non-Af Amer 86 mL/min >60 [facility] Comment on above: Non- GFR Calc Hepatitis C Antibody Non-Reactive Nonreactive [facility] Comment on above: Non Reactive: < 0.8 Equivocal: >/= 0.8 to < 1.0 Reactive: >/= 1.0The CDC recommends that a reactive/equivocal HCV antibody result be followed up by the HCV Nucleic Acid Amplificationtest ([id number]) Thyroid Stimulating Hormone (TSH) 1.96 uIU/mL 0.358-3.74 [facility] Platelets bldOrdered By: Dr. Tai on 05-21-2022 Platelets (Bld) [#/Vol] 479 10*3/uL 150-450 [facility] RBC morphologyOrdered By: Dr Niranjan Tai on 05-21-2022 RBC morphology finding Nom (Bld) N CHROM NORMAL NORM C&C [facility] Serum or plasma albumin uche urement (mass/volume)Ordered By: Dr. Tai on 05-21-2022 Albumin [Mass/Vol] 3.3 g/dL 3.2-5.0 [facility] Serum or plasma albumin/glob ulin mass ratioOrdered By: Dr. Tai on 05-21-2022 Albumin/Globulin [Mass ratio] 1.0 {ratio} 0.9-2.4 [facility] Serum or plasma calcium uche urement (mass/volume)Ordered By: Dr. Tai on 05-21-2022 Calcium [Mass/Vol] 9.2 mg/dL 8.5-10.1 [facility] Serum or plasma creatinine m easurement (mass/volume)Ordered By: Dr. Tai on 05-21-2022 Creatinine [Mass/Vol] 0.75 mg/dL 0.55-1.02 [facility] Comment on above: The validity of the calculated GFR & GFRAA in patients over 70 years has not been determined. Clinical correlation is essential. Serum or plasma urea nitroge n measurement (mass/volume)Ordered By: Dr. Tai on 05-21-2022 Urea nitrogen [Mass/Vol] 15 mg/dL 7-18 [facility] Thin prep Papanicolaou smear with manual screeningOrdered By: Dr. Tai on 05-21-2022 Thin prep Papanicolaou smear with manual screening 7 U/L 15-37 [facility] Thin prep Papanicolaou smear with manual screening 13 5-15 [facility] Glucose Glucometer (BldC) [M ass/Vol]Ordered By: Dr. Min on 05-08-2022 Glucose [Mass/Vol] 152 mg/dL 74-106 [facility] Comment on above: MANAGEMENT OF PATIEN T CARE PER NURSING PROTOCOL Influenza virus A and B and SARS-CoV-2 (COVID-19) Ag panel - Upper respiratory specimOrdered By: ED PROVIDER on 05-08-2022 SARS-CoV-2 & FLU Antigen (Rapid) SARS-CoV-2 (COVID 19) [facility] Absolute lymphocyte countOrd ered By: Dr. Tai on 04-23-2022 Lymphocytes Auto (Unsp spec) [#/Vol] 2.47 10*3/uL 0.83-4.51 [facility] Basophil percentageOrdered B y: Dr. Tai on 04-23-2022 Basophils/100 WBC (Bld) 1.1 % 0-1 [facility] Eosinophils/100 WBC (Bld) 2.1 % 0-5 [facility] Neutrophils (Bld) [#/Vol] 6.1 10*3/uL 2.0-7.7 [facility] Neutrophils/100 WBC (Bld) 65.3 % 47-70 [facility] WBC (Bld) [#/Vol] 9.4 10*3/uL 4.4-11.0 [facility] Blood erythrocytes count (nu mber/volume)Ordered By: Dr. Tai on 04-23-2022 RBC (Bld) [#/Vol] 4.40 10*6/uL 4.2-5.4 [facility] Blood hemoglobin measurement (mass/volume)Ordered By: Dr. Tai on 04-23-2022 Hemoglobin (Bld) [Mass/Vol] 13.0 g/dL 12.0-15.0 [facility] Blood lymphocytes/100 leukoc ytesOrdered By: Dr. Tai on 04-23-2022 Lymphocytes/100 WBC (Bld) 26.3 % 19-41 [facility] Blood monocytes/100 leukocyt esOrdered By: Dr. Tai on 04-23-2022 Monocytes/100 WBC (Bld) 4.9 % 0-10 [facility] Blood platelet mean volumeOr dered By: Dr. Tai on 04-23-2022 Platelet mean volume (Bld) [Entitic vol] 9.8 fL 6.2-12.0 [facility] Determination of erythrocyte mean corpuscular volume (MCV)Ordered By: Dr. Tai on 04-23-2022 MCV (RBC) [Entitic vol] 91.1 fL 81-99 [facility] Hematocrit Auto (Bld) [Volum e fraction]Ordered By: Dr. Tai on 04-23-2022 Hematocrit (Bld) [Volume fraction] 40.1 % 37-47 [facility] Laboratory - Hematology and Cell countsOrdered By: Dr. Tai on 04-23-2022 Erythrocyte distribution width (RBC) [Entitic vol] 49.7 fL 35.1-43.9 [facility] Erythrocyte distribution width (RBC) [Ratio] 14.9 % 11.6-14.6 [facility] Immature granulocytes/100 WBC (Bld) 0.300 % 0.0-0.9 [facility] Comment on above: IG% - Immature Granu locytes (promyelocytes, myelocytes and metamyelocytes) > 1% indicates that a LEFT SHIFT is Present. MCH (RBC) [Entitic mass] 29.5 pg 27.0-32.0 [facility] Nucleated RBC/100 WBC (Bld) [Ratio] 0 % 0-5 [facility] MCHC Auto (RBC) [Mass/Vol]Or dered By: Dr. Tai on 04-23-2022 MCHC (RBC) [Mass/Vol] 32.4 g/dL 32-36 [facility] Platelets bldOrdered By: Dr. Tai on 04-23-2022 Platelets (Bld) [#/Vol] 443 10*3/uL 150-450 [facility] Absolute lymphocyte countOrd ered By: Dr. Mello on 04-22-2022 Lymphocytes Auto (Unsp spec) [#/Vol] 4.07 10*3/uL 0.83-4.51 [facility] Basophil percentageOrdered B y: Dr. Mello on 04-22-2022 Basophils/100 WBC (Bld) 0.9 % 0-1 [facility] Chloride [Moles/Vol] 106 mmol/L 98-107 [facility] Eosinophils/100 WBC (Bld) 1.5 % 0-5 [facility] Glucose [Mass/Vol] 146 mg/dL 74-106 [facility] Comment on above: Fasting Glucose resu lt greater than or equal to 126 mg/dL suggests DIABETES MELLITUS per A.D.A. criteria. Neutrophils (Bld) [#/Vol] 5.1 10*3/uL 2.0-7.7 [facility] Neutrophils/100 WBC (Bld) 49.8 % 47-70 [facility] Potassium [Moles/Vol] 4.3 mmol/L 3.5-5.1 [facility] Sodium [Moles/Vol] 138 mmol/L 136-145 [facility] WBC (Bld) [#/Vol] 10.2 10*3/uL 4.4-11.0 [facility] Beta hCG serum qualOrdered B y: Dr. Mello on 04-22-2022 Beta HCG ( test) Ql Negative [facility] Blood erythrocytes count (nu mber/volume)Ordered By: Dr. Mello on 04-22-2022 RBC (Bld) [#/Vol] 4.26 10*6/uL 4.2-5.4 [facility] Blood hemoglobin measurement (mass/volume)Ordered By: Dr. Mello on 04-22-2022 Hemoglobin (Bld) [Mass/Vol] 12.6 g/dL 12.0-15.0 [facility] Blood lymphocytes/100 leukoc ytesOrdered By: Dr. Mello on 04-22-2022 Lymphocytes/100 WBC (Bld) 40.1 % 19-41 [facility] Blood monocytes/100 leukocyt esOrdered By: Dr. Mello on 04-22-2022 Monocytes/100 WBC (Bld) 7.2 % 0-10 [facility] Blood platelet mean volumeOr dered By: Dr. Mello on 04-22-2022 Platelet mean volume (Bld) [Entitic vol] 9.7 fL 6.2-12.0 [facility] Determination of erythrocyte mean corpuscular volume (MCV)Ordered By: Dr. Mello on 04-22-2022 MCV (RBC) [Entitic vol] 91.1 fL 81-99 [facility] Hematocrit Auto (Bld) [Volum e fraction]Ordered By: Dr. Mello on 04-22-2022 Hematocrit (Bld) [Volume fraction] 38.8 % 37-47 [facility] INR in Blood by Coagulation assayOrdered By: Dr. Mello on 04-22-2022 INR Coag (Bld) [Relative time] 2.1 {INR} [facility] Laboratory - Chemistry and C hemistry - challengeOrdered By: Dr. Mello on 04-22-2022 CO2 [Moles/Vol] 27.0 mmol/L 21.0-32.0 [facility] Urea nitrogen/Creatinine [Mass ratio] 18.5 mg/mg 10-20 [facility] Laboratory - CoagulationOrde red By: Dr. Mello on 04-22-2022 PT Coag (PPP) [Time] 22.9 s 11.7-14.9 [facility] Laboratory - Hematology and Cell countsOrdered By: Dr. Mello on 04-22-2022 Erythrocyte distribution width (RBC) [Entitic vol] 49.5 fL 35.1-43.9 [facility] Erythrocyte distribution width (RBC) [Ratio] 14.9 % 11.6-14.6 [facility] Immature granulocytes/100 WBC (Bld) 0.500 % 0.0-0.9 [facility] Comment on above: IG% - Immature Granu locytes (promyelocytes, myelocytes and metamyelocytes) > 1% indicates that a LEFT SHIFT is Present. MCH (RBC) [Entitic mass] 29.6 pg 27.0-32.0 [facility] Nucleated RBC/100 WBC (Bld) [Ratio] 0 % 0-5 [facility] MCHC Auto (RBC) [Mass/Vol]Or dered By: Dr. Mello on 04-22-2022 MCHC (RBC) [Mass/Vol] 32.5 g/dL 32-36 [facility] No Panel InformationOrdered By: Dr. Mello on 04-22-2022 Estimated Creatinine Clearance Calc 70.35 ml/min [facility] Estimated GFR (MDRD) Amer 83 mL/min >60 [facility] Comment on above: GFR Calc Estimated GFR (MDRD) Non-Af Amer 68 mL/min >60 [facility] Comment on above: Non- GFR Calc Platelets bldOrdered By: Dr. Mello on 04-22-2022 Platelets (Bld) [#/Vol] 414 10*3/uL 150-450 [facility] Serum or plasma calcium uche urement (mass/volume)Ordered By: Dr. Mello on 04-22-2022 Calcium [Mass/Vol] 9.0 mg/dL 8.5-10.1 [facility] Serum or plasma creatinine m easurement (mass/volume)Ordered By: Dr. Mello on 04-22-2022 Creatinine [Mass/Vol] 0.92 mg/dL 0.55-1.02 [facility] Comment on above: The validity of the calculated GFR & GFRAA in patients over 70 years has not been determined. Clinical correlation is essential. Serum or plasma urea nitroge n measurement (mass/volume)Ordered By: Dr. Mello on 04-22-2022 Urea nitrogen [Mass/Vol] 17 mg/dL 7-18 [facility] Thin prep Papanicolaou smear with manual screeningOrdered By: Dr. Mello on 04-22-2022 Thin prep Papanicolaou smear with manual screening 5 5-15 [facility] Absolute lymphocyte counton 01-28-2022 Lymphocytes Auto (Unsp spec) [#/Vol] 3.60 10*3/uL 0.83-4.51 [facility] Work Phone: Basophil percentageon 2021 Basophils/100 WBC (Bld) 1.1 % 0-1 [facility] Work Phone: Bilirubin [Mass/Vol] 0.20 mg/dL 0.20-1.00 [facility] Work Phone: Comment on above: For patients on eltr ombopag therapy, use of Dimension Matthews TBIL is not recommended. Chloride [Moles/Vol] 104 mmol/L 98-107 [facility] Work Phone: [phone] Eosinophils/100 WBC (Bld) 1.8 % 0-5 [facility] Work Phone: [phone] Glucose [Mass/Vol] 122 mg/dL 74-106 [facility] Work Phone: Comment on above: Fasting Glucose resu lt from 100 to 125 mg/dL suggests IMPAIRED HOMEOSTASIS per A.D.A. criteria. Neutrophils (Bld) [#/Vol] 6.6 10*3/uL 2.0-7.7 [facility] Work Phone: [phone] Neutrophils/100 WBC (Bld) 57.6 % 47-70 [facility] Work Phone: Potassium [Moles/Vol] 3.9 mmol/L 3.5-5.1 [facility] Work Phone: Protein [Mass/Vol] 7.0 g/dL 6.4-8.2 [facility] Work Phone: Sodium [Moles/Vol] 138 mmol/L 136-145 [facility] Work Phone: WBC (Bld) [#/Vol] 11.4 10*3/uL 4.4-11.0 [facility] Work Phone: Blood erythrocytes count (nu mber/volume)on 01-28-2022 RBC (Bld) [#/Vol] 4.31 10*6/uL 4.2-5.4 [facility] Work Phone: Blood hemoglobin measurement (mass/volume)on 01-28-2022 Hemoglobin (Bld) [Mass/Vol] 13.2 g/dL 12.0-15.0 [facility] Work Phone: Blood lymphocytes/100 leukoc yteson 01-28-2022 Lymphocytes/100 WBC (Bld) 31.6 % 19-41 [facility] Work Phone: Blood monocytes/100 leukocyt eson 01-28-2022 Monocytes/100 WBC (Bld) 7.5 % 0-10 [facility] Work Phone: Blood platelet mean volumeon 01-28-2022 Platelet mean volume (Bld) [Entitic vol] 10.1 fL 6.2-12.0 [facility] Work Phone: Determination of erythrocyte mean corpuscular volume (MCV)on 01-28-2022 MCV (RBC) [Entitic vol] 91.6 fL 81-99 [facility] Work Phone: Hematocrit Auto (Bld) [Volum e fraction]on 01-28-2022 Hematocrit (Bld) [Volume fraction] 39.5 % 37-47 [facility] Work Phone: Laboratory - Chemistry and C hemistry - challengeon 01-28-2022 ALP [Catalytic activity/Vol] 86 U/L 45-117 [facility] Work Phone: ALT [Catalytic activity/Vol] 28 U/L 13-56 [facility] Work Phone: CO2 [Moles/Vol] 28.0 mmol/L 21.0-32.0 [facility] Work Phone: Globulin (S) [Mass/Vol] 3.6 g/dL 2.2-4.2 [facility] Work Phone: Urea nitrogen/Creatinine [Mass ratio] 23.3 mg/mg 10-20 [facility] Work Phone: Laboratory - Hematology and Cell countson 01-28-2022 Erythrocyte distribution width (RBC) [Entitic vol] 51.8 fL 35.1-43.9 [facility] Work Phone: Erythrocyte distribution width (RBC) [Ratio] 15.5 % 11.6-14.6 [facility] Work Phone: Immature granulocytes/100 WBC (Bld) 0.400 % 0.0-0.9 [facility] Work Phone: Comment on above: IG% - Immature Granu locytes (promyelocytes, myelocytes and metamyelocytes) > 1% indicates that a LEFT SHIFT is Present. MCH (RBC) [Entitic mass] 30.6 pg 27.0-32.0 [facility] Work Phone: Nucleated RBC/100 WBC (Bld) [Ratio] 0 % 0-5 [facility] Work Phone: MCHC Auto (RBC) [Mass/Vol]on 01-28-2022 MCHC (RBC) [Mass/Vol] 33.4 g/dL 32-36 [facility] Work Phone: No Panel Informationon 01-28 Estimated GFR (MDRD) Amer 125 mL/min >60 [facility] Work Phone: Comment on above: GFR Calc Estimated GFR (MDRD) Non-Af Amer 103 mL/min >60 [facility] Work Phone: Comment on above: Non- GFR Calc Thyroid Stimulating Hormone (TSH) 1.35 uIU/mL 0.358-3.74 [facility] Work Phone: Platelets bldon 01-28-2022 Platelets (Bld) [#/Vol] 451 10*3/uL 150-450 [facility] Work Phone: Serum or plasma albumin uche urement (mass/volume)on 01-28-2022 Albumin [Mass/Vol] 3.4 g/dL 3.2-5.0 [facility] Work Phone: Serum or plasma albumin/glob ulin mass ratioon 01-28-2022 Albumin/Globulin [Mass ratio] 0.9 {ratio} 0.9-2.4 [facility] Work Phone: Serum or plasma calcium uche urement (mass/volume)on 01-28-2022 Calcium [Mass/Vol] 9.5 mg/dL 8.5-10.1 [facility] Work Phone: Serum or plasma creatinine m easurement (mass/volume)on 01-28-2022 Creatinine [Mass/Vol] 0.64 mg/dL 0.55-1.02 [facility] Work Phone: Comment on above: The validity of the calculated GFR & GFRAA in patients over 70 years has not been determined. Clinical correlation is essential. Serum or plasma urea nitroge n measurement (mass/volume)on 01-28-2022 Urea nitrogen [Mass/Vol] 15 mg/dL 7-18 [facility] Work Phone: Thin prep Papanicolaou smear with manual screeningon 01-28-2022 Thin prep Papanicolaou smear with manual screening 16 U/L 15-37 [facility] Work Phone: Thin prep Papanicolaou smear with manual screening 6 5-15 [facility] Work Phone: Absolute lymphocyte counton 11-01-2021 Lymphocytes Auto (Unsp spec) [#/Vol] 2.55 10*3/uL 0.83-4.51 [facility] Work Phone: Basophil percentageon 2021 Basophils/100 WBC (Bld) 1.0 % 0-1 [facility] Work Phone: Bilirubin [Mass/Vol] 0.20 mg/dL 0.20-1.00 [facility] Work Phone: Comment on above: For patients on eltr ombopag therapy, use of Dimension Matthews TBIL is not recommended. Chloride [Moles/Vol] 106 mmol/L 98-107 [facility] Work Phone: Eosinophils/100 WBC (Bld) 1.9 % 0-5 [facility] Work Phone: Glucose [Mass/Vol] 169 mg/dL 74-106 [facility] Work Phone: Comment on above: Fasting Glucose resu lt greater than or equal to 126 mg/dL suggests DIABETES MELLITUS per A.D.A. criteria. Neutrophils (Bld) [#/Vol] 4.9 10*3/uL 2.0-7.7 [facility] Work Phone: Neutrophils/100 WBC (Bld) 58.9 % 47-70 [facility] Work Phone: Potassium [Moles/Vol] 3.9 mmol/L 3.5-5.1 [facility] Work Phone: Protein [Mass/Vol] 6.5 g/dL 6.4-8.2 [facility] Work Phone: Sodium [Moles/Vol] 138 mmol/L 136-145 [facility] Work Phone: WBC (Bld) [#/Vol] 8.3 10*3/uL 4.4-11.0 [facility] Work Phone: Blood erythrocytes count (nu mber/volume)on 11-01-2021 RBC (Bld) [#/Vol] 4.18 10*6/uL 4.2-5.4 [facility] Work Phone: Blood hemoglobin measurement (mass/volume)on 11-01-2021 Hemoglobin (Bld) [Mass/Vol] 12.5 g/dL 12.0-15.0 [facility] Work Phone: Blood lymphocytes/100 leukoc yteson 11-01-2021 Lymphocytes/100 WBC (Bld) 30.6 % 19-41 [facility] Work Phone: Blood monocytes/100 leukocyt eson 11-01-2021 Monocytes/100 WBC (Bld) 7.2 % 0-10 [facility] Work Phone: Blood platelet mean volumeon 11-01-2021 Platelet mean volume (Bld) [Entitic vol] 10.3 fL 6.2-12.0 [facility] Work Phone: Determination of erythrocyte mean corpuscular volume (MCV)on 11-01-2021 MCV (RBC) [Entitic vol] 91.1 fL 81-99 [facility] Work Phone: Hematocrit Auto (Bld) [Volum e fraction]on 11-01-2021 Hematocrit (Bld) [Volume fraction] 38.1 % 37-47 [facility] Work Phone: Laboratory - Chemistry and C hemistry - challengeon 11-01-2021 ALP [Catalytic activity/Vol] 70 U/L 45-117 [facility] Work Phone: ALT [Catalytic activity/Vol] 23 U/L 13-56 [facility] Work Phone: CO2 [Moles/Vol] 27.0 mmol/L 21.0-32.0 [facility] Work Phone: Globulin (S) [Mass/Vol] 3.3 g/dL 2.2-4.2 [facility] Work Phone: Urea nitrogen/Creatinine [Mass ratio] 13.2 mg/mg 10-20 [facility] Work Phone: Laboratory - Hematology and Cell countson 11-01-2021 Erythrocyte distribution width (RBC) [Entitic vol] 51.1 fL 35.1-43.9 [facility] Work Phone: Erythrocyte distribution width (RBC) [Ratio] 15.4 % 11.6-14.6 [facility] Work Phone: Immature granulocytes/100 WBC (Bld) 0.400 % 0.0-0.9 [facility] Work Phone: Comment on above: IG% - Immature Granu locytes (promyelocytes, myelocytes and metamyelocytes) > 1% indicates that a LEFT SHIFT is Present. MCH (RBC) [Entitic mass] 29.9 pg 27.0-32.0 [facility] Work Phone: Nucleated RBC/100 WBC (Bld) [Ratio] 0 % 0-5 [facility] Work Phone: MCHC Auto (RBC) [Mass/Vol]on 11-01-2021 MCHC (RBC) [Mass/Vol] 32.8 g/dL 32-36 [facility] Work Phone: No Panel Informationon 11-01 Estimated GFR (MDRD) Amer 116 mL/min >60 [facility] Work Phone: Comment on above: GFR Calc Estimated GFR (MDRD) Non-Af Amer 96 mL/min >60 [facility] Work Phone: Comment on above: Non- GFR Calc Thyroid Stimulating Hormone (TSH) 1.32 uIU/mL 0.358-3.74 [facility] Work Phone: Platelets bldon 11-01-2021 Platelets (Bld) [#/Vol] 437 10*3/uL 150-450 [facility] Work Phone: Serum or plasma albumin uche urement (mass/volume)on 11-01-2021 Albumin [Mass/Vol] 3.2 g/dL 3.2-5.0 [facility] Work Phone: Serum or plasma albumin/glob ulin mass ratioon 11-01-2021 Albumin/Globulin [Mass ratio] 1.0 {ratio} 0.9-2.4 [facility] Work Phone: Serum or plasma calcium uche urement (mass/volume)on 11-01-2021 Calcium [Mass/Vol] 9.3 mg/dL 8.5-10.1 [facility] Work Phone: Serum or plasma creatinine m easurement (mass/volume)on 11-01-2021 Creatinine [Mass/Vol] 0.68 mg/dL 0.55-1.02 [facility] Work Phone: Comment on above: The validity of the calculated GFR & GFRAA in patients over 70 years has not been determined. Clinical correlation is essential. Serum or plasma urea nitroge n measurement (mass/volume)on 11-01-2021 Urea nitrogen [Mass/Vol] 9 mg/dL 7-18 [facility] Work Phone: Thin prep Papanicolaou smear with manual screeningon 11-01-2021 Thin prep Papanicolaou smear with manual screening 14 U/L 15-37 [facility] Work Phone: Thin prep Papanicolaou smear with manual screening 5 5-15 [facility] Work Phone: Absolute lymphocyte counton 07-30-2021 Lymphocytes Auto (Unsp spec) [#/Vol] 2.70 10*3/uL 0.83-4.51 [facility] Work Phone: Basophil percentageon 2021 Basophils/100 WBC (Bld) 1.0 % 0-1 [facility] Work Phone: Bilirubin [Mass/Vol] 0.20 mg/dL 0.20-1.00 [facility] Work Phone: Comment on above: For patients on eltr ombopag therapy, use of Dimension Matthews TBIL is not recommended. Chloride [Moles/Vol] 107 mmol/L 98-107 [facility] Work Phone: Eosinophils/100 WBC (Bld) 2.4 % 0-5 [facility] Work Phone: Glucose [Mass/Vol] 143 mg/dL 74-106 [facility] Work Phone: Comment on above: Fasting Glucose resu lt greater than or equal to 126 mg/dL suggests DIABETES MELLITUS per A.D.A. criteria. Neutrophils (Bld) [#/Vol] 5.2 10*3/uL 2.0-7.7 [facility] Work Phone: [phone] Neutrophils/100 WBC (Bld) 59.0 % 47-70 [facility] Work Phone: Potassium [Moles/Vol] 3.9 mmol/L 3.5-5.1 [facility] Work Phone: Protein [Mass/Vol] 6.7 g/dL 6.4-8.2 [facility] Work Phone: Sodium [Moles/Vol] 138 mmol/L 136-145 [facility] Work Phone: WBC (Bld) [#/Vol] 8.9 10*3/uL 4.4-11.0 [facility] Work Phone: Blood erythrocytes count (nu mber/volume)on 07-30-2021 RBC (Bld) [#/Vol] 4.51 10*6/uL 4.2-5.4 [facility] Work Phone: Blood hemoglobin measurement (mass/volume)on 07-30-2021 Hemoglobin (Bld) [Mass/Vol] 13.1 g/dL 12.0-15.0 [facility] Work Phone: Blood lymphocytes/100 leukoc yteson 07-30-2021 Lymphocytes/100 WBC (Bld) 30.4 % 19-41 [facility] Work Phone: Blood monocytes/100 leukocyt eson 07-30-2021 Monocytes/100 WBC (Bld) 6.9 % 0-10 [facility] Work Phone: Blood platelet mean volumeon 07-30-2021 Platelet mean volume (Bld) [Entitic vol] 10.4 fL 6.2-12.0 [facility] Work Phone: Determination of erythrocyte mean corpuscular volume (MCV)on 07-30-2021 MCV (RBC) [Entitic vol] 87.4 fL 81-99 [facility] Work Phone: Hematocrit Auto (Bld) [Volum e fraction]on 07-30-2021 Hematocrit (Bld) [Volume fraction] 39.4 % 37-47 [facility] Work Phone: Laboratory - Chemistry and C hemistry - challengeon 07-30-2021 ALP [Catalytic activity/Vol] 78 U/L 45-117 [facility] Work Phone: ALT [Catalytic activity/Vol] 25 U/L 13-56 [facility] Work Phone: CO2 [Moles/Vol] 27.0 mmol/L 21.0-32.0 [facility] Work Phone: Globulin (S) [Mass/Vol] 3.3 g/dL 2.2-4.2 [facility] Work Phone: Urea nitrogen/Creatinine [Mass ratio] 17.2 mg/mg 10-20 [facility] Work Phone: Laboratory - Hematology and Cell countson 07-30-2021 Erythrocyte distribution width (RBC) [Entitic vol] 49.8 fL 35.1-43.9 [facility] Work Phone: Erythrocyte distribution width (RBC) [Ratio] 15.6 % 11.6-14.6 [facility] Work Phone: Immature granulocytes/100 WBC (Bld) 0.300 % 0.0-0.9 [facility] Work Phone: Comment on above: IG% - Immature Granu locytes (promyelocytes, myelocytes and metamyelocytes) > 1% indicates that a LEFT SHIFT is Present. MCH (RBC) [Entitic mass] 29.0 pg 27.0-32.0 [facility] Work Phone: Nucleated RBC/100 WBC (Bld) [Ratio] 0 % 0-5 [facility] Work Phone: MCHC Auto (RBC) [Mass/Vol]on 07-30-2021 MCHC (RBC) [Mass/Vol] 33.2 g/dL 32-36 [facility] Work Phone: No Panel Informationon 07-30 Estimated GFR (MDRD) Amer 114 mL/min >60 [facility] Work Phone: Comment on above: GFR Calc Estimated GFR (MDRD) Non-Af Amer 94 mL/min >60 [facility] Work Phone: Comment on above: Non- GFR Calc Thyroid Stimulating Hormone (TSH) 1.67 uIU/mL 0.358-3.74 [facility] Work Phone: Platelets bldon 07-30-2021 Platelets (Bld) [#/Vol] 425 10*3/uL 150-450 [facility] Work Phone: Serum or plasma albumin uche urement (mass/volume)on 07-30-2021 Albumin [Mass/Vol] 3.4 g/dL 3.2-5.0 [facility] Work Phone: Serum or plasma albumin/glob ulin mass ratioon 07-30-2021 Albumin/Globulin [Mass ratio] 1.0 {ratio} 0.9-2.4 [facility] Work Phone: Serum or plasma calcium uche urement (mass/volume)on 07-30-2021 Calcium [Mass/Vol] 9.2 mg/dL 8.5-10.1 [facility] Work Phone: Serum or plasma creatinine m easurement (mass/volume)on 07-30-2021 Creatinine [Mass/Vol] 0.70 mg/dL 0.55-1.02 [facility] Work Phone: Comment on above: The validity of the calculated GFR & GFRAA in patients over 70 years has not been determined. Clinical correlation is essential. Serum or plasma urea nitroge n measurement (mass/volume)on 07-30-2021 Urea nitrogen [Mass/Vol] 12 mg/dL 7-18 [facility] Work Phone: Thin prep Papanicolaou smear with manual screeningon 07-30-2021 Thin prep Papanicolaou smear with manual screening 23 U/L 15-37 [facility] Work Phone: Thin prep Papanicolaou smear with manual screening 4 5-15 [facility] Work Phone: Laboratory - Chemistry and C hemistry - challengeon 02-26-2021 Transferrin [Mass/Vol] 270 mg/dL 192-364 [facility] Comment on above: Performed at: [facility] [place] [address] [id number] Director: Refugio Rose PhD, Phone: [phone] No Panel Informationon 02-26 270 mg/dL 192-364 [facility] Lower GI hemoglobin IA Ql (S tl)on 11-21-2020 Stool Occult Blood (AYUSH) Positive [facility] Stool Occult Blood (AYUSH) Positive Abnormal [facility] Stool gastrointestinal hemoglobin detection by immunologic method Positive [facility] Stool Occult Blood (AYUSH) Positive [facility] Basophil percentageon 2020 Basophil percentage 3.1 mg/dL 2.5-4.9 [facility] Folate [Mass/Vol]on 07-11-19 21 Folate 8.20 ng/mL 3.1-55.4 [facility] Laboratory - Chemistry and C hemistry - challengeon 07-11-2020 Cobalamin (Vitamin B12) [Mass/Vol] 522 pg/mL 211-911 [facility] Magnesium [Mass/Vol] 1.7 mg/dL 1.6-2.6 [facility] No Panel Informationon 07-11 1.7 mg/dL 1.6-2.6 [facility] 522 pg/mL 211-911 [facility] Serum or plasma folate measu rement (mass/volume)on 07-11-2020 Folate [Mass/Vol] 8.20 ng/mL 3.1-55.4 [facility] Trichomonas screening teston 07-11-2020 Phosphorus Level 3.1 mg/dL 2.5-4.9 [facility] No Panel Informationon 04-10 Stool Occult Blood (AYUSH) [facility] EMERGENCY REPORTon 9 EMERGENCY REPORT [facility] EMERGENCY ROOM REPORT NAME ACCOUNT SEX AGE ADMIT DISCHARGE PT MED. RECORD# NUMBER DATE DATE TYPE ROGERIO FRIEND [id number] F 48 01/08/19 01/08/19 3 F [id number] ROOM: ER DATE OF : 1970 DICTATING PHYSICIAN: Triny Bailey CHIEF COMPLAINT: Patient is a 48-year-old female with a past medical history significant for constipation, presents to the emergency department for evaluation for change in bowel movements for the last 4-5 days with passing mucus from my rectum. HISTORY OF PRESENT ILLNESS: Patient states has tried MiraLax and stool softener which starts with the letter D at home with no success. Patient endorses mild abdominal pain and the urge to defecate, but denies fevers, chills, nausea, vomiting or hematochezia. REVIEW OF SYSTEMS: Most significant for no fevers, no chills, no chest pain, no shortness of breath, no nausea, no vomiting with abdominal pain with constipation with no diarrhea or hematochezia and with no urinary symptoms. PHYSICAL EXAMINATION: An alert-appearing female in no acute distress with lungs clear to auscultation bilaterally with no wheezes or crackles. Heart rate and rhythm regular with no murmurs appreciated. Abdomen: Soft, nontender to palpation with no peritoneal signs or guarding with a digital rectal exam with no fecal matter appreciated, with external hemorrhoids with no thrombosis. DIAGNOSTIC DATA: Obtained a KUB on the patient which revealed a heavy stool burden. EMERGENCY DEPARTMENT COURSE AND TREATMENT: Patient was given soap suds enemas in the emergency department with no bowel movements. DIAGNOSIS: PLAN/DISPOSITION: Discussed with the patient the plan for discharge home on NuLYTELY with continued Senna-S and MiraLax prescriptions. Also discussed with patient the need to follow up with primary care physician. Educated patient if she has worsening of abdominal pain, has hematochezia or vomiting, should return to the emergency department. Patient verbalized understanding of the information given and agreed with this treatment plan. Patient is discharged home with a prescription for NuLYTELY, Senna-S and MiraLax in stable condition with return precautions. Dictated By: Triny Bailey MD Page 1 of 2 ROGERIO FRIEND Emergency Room Report 01/08/19 05:22 JOB #: [id number] Transcribed By: garth 01/08/19 10:21 Electronically signed by: Triny Bailey MD 01/14/19 04:56 Page 2 of 2 ROGERIO FRIEND Emergency Room Report Normal [facility] ABDOMEN 2 VIEWSon 01-08-2019 [place]BDOM[place] 2 [place] [address] Patient: ROGERIO FRIEND Phone#: : 1970 Age: 48 Gender: F Pt. Type: ER Account: [id number] Location: [facility] Ordering: DR. ESTHER NAVA Exam Date: 01/08/2019/3:01 Family Phys: SUHA RUSSELL Charge Code: [id number] Physician: [place] Order #: [id number] DLP Dose#: PROCEDURE: ABDOMEN 2 VIEWS COMPARISON: [facility], XR, ACUTE ABDOMINAL SERIES, 12/08/2018, 17:00. [facility], XR, ABDOMEN 1 VIEW, 12/18/2018, 17:22. INDICATIONS: Constipation FINDINGS: BOWEL GAS PATTERN: Normal. No abnormal dilation or deviation. There is stool seen in the descending colon, overall decreased from prior. CALCIFICATIONS: None significant. OTHER: Negative. No abnormal gaseous collections. Surgical clips are present in right upper quadrant. CONCLUSION: 1. Decreased stool burden compared to prior. Dictated by: Sakshi Ortega MD on 01/08/2019 at 8:57 Approved by: Sakshi Ortega MD on 01/08/2019 at 8:57 Normal [facility] URINEon 01-08-2019 Beta HCG ( test) Ql (U) Negative Normal NEGATIVE [facility] Comment on above: Performed By: #### 2 68443 #### [facility],[address] [place] [address] EXTERNAL QC DONE? YES Normal [facility] Comment on above: Performed By: #### 2 14879 #### [facility],[address] [place] [address] INTERNAL QC PASS Normal [facility] Comment on above: Performed By: #### 2 07888 #### [facility],[address] [place], [place] [address] URINALYSIS WITH MICROSCOPYon 01-08-2019 Amorphous NONE Normal [facility] Comment on above: Performed By: #### 2 62236 #### [facility],[address] [place] [address] 02105 Bacteria LM.HPF (Urine sed) [#/Area] NONE Normal [facility] Comment on above: Performed By: #### 2 69124 #### [facility],[address] [place] [address] 61940 Bilirubin [Mass/Vol] Negative Normal NORMAL: NEGATIVE [facility] Comment on above: Performed By: #### 2 15679 #### [facility],[address] [place] [address] 03888 Blood Negative Normal NORMAL: NEGATIVE [facility] Comment on above: Performed By: #### 2 82211 #### [facility],[address] [place] [address] 60827 Casts LM.LPF (Urine sed) [#/Area] NONE Normal [facility] Comment on above: Performed By: #### 2 46470 #### [facility],[address] [place], [place] [id number] Clarity (U) clear Normal NORMAL: CLEAR [facility] Comment on above: Performed By: #### 2 32958 #### [facility],[address] [place] [address] 95044 Color (U) p.yel Normal NORMAL: YELLOW [facility] Comment on above: Performed By: #### 2 64915 #### [facility],[address] [place] [address] 01224 Crystals LM Nom (Urine sed) NONE Normal [facility] Comment on above: Performed By: #### 2 55812 #### [facility],[address] [place] [address] 99937 Epi Cells OCC Normal [facility] Comment on above: Performed By: #### 2 84389 #### [facility],[address] [place] [address] 85235 Glucose [Mass/Vol] NORM Normal NORMAL: NORMAL [facility] Comment on above: Performed By: #### 2 82130 #### [facility],[address] [place] [address] 25826 Ketone Negative Normal NORMAL: NEGATIVE [facility] Comment on above: Performed By: #### 2 82914 #### [facility],[address] [place] [address] Mucous NONE Normal [facility] Comment on above: Performed By: #### 2 16887 #### [facility],[address] [place] [address] 84508 Nitrite Ql (U) Negative Normal NORMAL: NEGATIVE [facility] Comment on above: Performed By: #### 2 59970 #### [facility],[address] [place] [address] pH (Bld) 6 Normal NORMAL: 5.0-8.0 [facility] Comment on above: Performed By: #### 2 39683 #### [facility],[address] [place] [address] 46337 Protein (U) [Mass/Vol] Negative Normal SERGIO L: NEGATIVE [facility] Comment on above: Performed By: #### 2 39678 #### [facility],[address] [place] [address] 86694 Rbc NONE Normal 0-3 / hpf [facility] Comment on above: Performed By: #### 2 87583 #### [facility],[address] [place] [address] 35486 Sp [place] 1.010 Normal NORMAL: 1.010-1.030 [facility] Comment on above: Performed By: #### 2 51905 #### [facility],[address] [place], [place] [id number] Specimen type Nom (Spec) UNSPECIFIED Normal [facility] Comment on above: Performed By: #### 2 50874 #### [facility],[address] [place] [address] URINALYSIS WITH MICROSCOPY Normal [facility] Comment on above: Result Comment: URIN ALYSIS Performed By: #### 2 81089 #### [facility],[address] [place] [address] Urobilinog NORM Normal NORMAL: NORMAL [facility] Comment on above: Performed By: #### 2 69146 #### [place] [address] Wbc NONE Normal 0-5 / hpf [facility] Comment on above: Performed By: #### 2 88902 #### [place] [address] WBC (Bld) [#/Vol] Negative Normal NORMAL: NEGATIVE [facility] Comment on above: Result Comment: URIN E MICROSCOPIC Performed By: #### 2 42392 #### [place] [address] Yeast LM Ql (Urine sed) NONE Normal [facility] Comment on above: Performed By: #### 2 76685 #### [place] [address] EMERGENCY REPORTon 9 EMERGENCY REPORT [facility] EMERGENCY ROOM REPORT NAME ACCOUNT SEX AGE ADMIT DISCHARGE PT MED. RECORD# NUMBER DATE DATE TYPE ROGERIO FRIEND [id number] F 48 12/18/18 12/18/18 3 F [id number] ROOM: ER DATE OF : 1970 DICTATING PHYSICIAN: Vinod Cunningham CHIEF COMPLAINT: Constipated. HISTORY OF PRESENT ILLNESS: Patient saw Suha Russell a week ago for constipation. It was recommended that she take MiraLAX daily for a week which she has been doing. She had an x-ray done she thinks about a week ago which showed a lot of stool. She has had some small bowel movements since, but very minimal and presents mainly for ongoing constipation. She is having some mild abdominal discomfort but no significant pain. She is having rectal incontinence. She has mild nausea but no vomiting. She has been able to eat and drink, though states that she does not have much appetite. PAST MEDICAL HISTORY: Significant for depression and anxiety, diabetes. PAST SURGICAL HISTORY: She has had previous cholecystectomy and tubal ligation. MEDICATIONS: Per medication reconciliation list. ALLERGIES: Per allergy list. SOCIAL HISTORY: She lives at home. She does smoke. She does not drink alcohol or use other drugs. PHYSICAL EXAMINATION: This is a 48-year-old female who is alert and appropriate, mildly obese. She does not appear toxic or in any distress. She ambulates well. Her skin is pink, warm and dry. ENT exam normal. Neck is supple. Lungs are clear. Cardiac exam, regular rhythm without any ectopy, murmurs, gallops, or rubs. Abdomen is slightly obese but very soft. She has minimal tenderness diffusely. No guarding or rebound. On rectal exam, external exam is normal. There is no stool at all in the rectal vault. No lesions noted. She moves extremities appropriately without any focal weaknesses. Vital Signs: Temperature 97.6, pulse 85, respirations 16, blood pressure 129/85. DIAGNOSTIC DATA: KUB did show a moderate amount of stool throughout the colon but no evidence of any obstructive or other abnormalities. No lesions. EMERGENCY DEPARTMENT COURSE AND TREATMENT: Discussed management with her. Recommended taking some Dulcolax [id number], increasing her Page 1 of 2 MARITA ROGERIO [facility] Emergency Room Report MiraLAX to twice a day, taking a dose of magnesium citrate in the morning. DIAGNOSIS: Chronic constipation. PLAN/DISPOSITION: Follow up with family doctor in 2-3 days. Dictated By: Vinod Cunningham MD 12/18/18 18:21 JOB #: [id number] Transcribed By: rossy 12/18/18 19:57 Electronically signed by: CAMDEN Cunningham M.D. 12/25/18 08:00 Page 2 of 2 ROGERIO FRIEND Emergency Room Report Normal [facility] ABDOMEN 1 VIEWon 12-18-2018 ABDOMEN 1 VIEW [place] [address] Patient: ROGERIO FRIEND. Phone#: : 1970 Age: 48 Gender: F Pt. Type: ER Account: [id number] Location: [id number] Ordering: VINOD CUNNINGHAM Exam Date: 12/18/2018/17:22 Family Phys: Charge Code: [id number] Physician: [place] Order #: [id number] DLP Dose#: PROCEDURE: ABDOMEN 1 VIEW COMPARISON: [facility], ACUTE ABDOMINAL SERIES, 12/08/2018, 17:00. INDICATIONS: Constipation. FINDINGS: BOWEL GAS PATTERN: Moderate to large degree of stool throughout the colon. No abnormal dilation or deviation. CALCIFICATIONS: None significant. OTHER: Surgical clips in right upper quadrant. CONCLUSION: 1. Moderate to large degree of stool throughout the colon. Dictated by: Sakshi Ortega MD on 12/19/2018 at 15:25 Approved by: Sakshi Ortega MD on 12/19/2018 at 15:25 Normal [facility] HGB A1C [CCL]on 12-09-2018 HbA1c (Bld) [Mass fraction] 154 mg/dL Normal [facility] Comment on above: Result Comment: eAG: (Estimated average glucose) is a calculated value from HgbA1c and is authorization representative of the average blood glucose level in the last 2-3 month period. [facility] [address] [place] [address] Coral Mayorga M.D. [id number] Performed By: #### 2 49544 #### [place] [id number] HbA1c (Bld) [Mass fraction] 7.0 % High 4.3-5.6 [facility] Comment on above: Result Comment: Amer [place] Diabetes Association guidelines indicate that patients with HgbA1c in the range 5.7-6.4% are at increased risk for development of diabetes, and intervention by lifestyle modification may be beneficial. HgbA1c greater or equal to 6.5% is considered diagnostic of diabetes. Performed By: #### 2 98595 #### [facility],[address] [place] [address] 16462 Hemoglobin A1con 12-09-2018 HbA1c (Bld) [Mass fraction] 7.0 % High 4.3-5.6 [facility] HbA1c (Bld) [Mass fraction] 154 mg/dL Normal [facility] ACUTE ABD W/SUPINE, ERECT or DECU 1V CXRon 12-08-2018 ACUTE ABD W/SUPINE, ERECT or DECU 1V CXR [place] [id number] Patient: ROGERIO FRIEND Phone#: : 1970 Age: 48 Gender: F Pt. Type: Out Account: [id number] Location: [facility] Ordering: SUHA RUSSELL Exam Date: 12/08/2018/17:00 Family Phys: NO DOCTOR Charge Code: [id number] Physician: [place] Order #: [id number] DLP Dose#: PROCEDURE: X-RAY ACUTE ABDOMINAL SERIES SINGLE VIEW CHEST COMPARISON: None. INDICATIONS: Acute abdominal pain. FINDINGS: BOWEL GAS PATTERN: Non-specific bowel gas pattern. Moderate degree of stool in throughout the colon. FREE AIR: None. CALCIFICATIONS: None significant. LUNGS: Normal for age. MEDIASTINUM: Normal for age. PLEURA: Normal. OTHER: Surgical clips are present in the right upper quadrant. CONCLUSION: No acute disease. Dictated by: Sakshi Ortega MD on 12/08/2018 at 17:42 Approved by: Sakshi Ortega MD on 12/08/2018 at 17:42 Normal [facility] AMYLASEon 12-08-2018 Amylase [Catalytic activity/Vol] 14 U/L Low 29 - 103 [facility] Comment on above: Performed By: #### 2 34804 #### [address] [address] C-REACTIVE PROTEINon 019 CRP [Mass/Vol] 1.50 mg/dl High 0.00 - 1.00 [facility] Comment on above: Performed By: #### 2 52240 #### [facility],[address] [place] [address] 36502 CBC + DIFFon 12-08-2018 Basophils (Bld) [#/Vol] 0.20 x10EE3/UL High 0.00 - 0.10 [facility] Comment on above: Performed By: #### 2 26366 #### [facility],[address] [place], [place] [address] Basophils/100 WBC (Bld) 1.4 % Normal 0.0 - 2.0 [facility] Comment on above: Performed By: #### 2 64626 #### [facility],[address] [place] [address] CBC + DIFF Normal [facility] Comment on above: Result Comment: CBC- COMPLETE BLOOD COUNT Performed By: #### 2 30402 #### [facility],[address] [place] [address] Eosinophils (Bld) [#/Vol] 0.30 x10EE3/UL Normal 0.00 - 0.50 [facility] Comment on above: Performed By: #### 2 18876 #### [facility],[address] [place], [place] [address] Eosinophils/100 WBC (Bld) 2.2 % Normal 0.0 - 7.0 [facility] Comment on above: Performed By: #### 2 98768 #### [facility],[address] [place] [address] Erythrocyte distribution width (RBC) [Ratio] 13.9 % Normal 12.0 - 15.6 [facility] Comment on above: Performed By: #### 2 83120 #### [facility],[address] [place] [address] Hematocrit (Bld) [Volume fraction] 39.7 % Normal 34.0 - 46.0 [facility] Comment on above: Performed By: #### 2 53676 #### [facility],[address] [place], [place] [address] Hemoglobin (Bld) [Mass/Vol] 13.4 g/dL Normal 12.0 - 16.0 [facility] Comment on above: Performed By: #### 2 41702 #### [facility],[address] [place] [address] 53580 Lymphocytes (Bld) [#/Vol] 5.20 x10EE3/UL High 0.80 - 2.80 [facility] Comment on above: Performed By: #### 2 20018 #### [facility],[address] [place] [address] 24976 Lymphocytes/100 WBC (Bld) 37.5 % Normal 20.0 - 45.0 [facility] Comment on above: Performed By: #### 2 37680 #### [facility],[address] [place] [address] 22117 MANUAL DIFF N/A Normal [facility] Comment on above: Performed By: #### 2 66687 #### [facility],[address] [place] [address] 05697 MCH (RBC) [Entitic mass] 30 pg Normal 27 - 33 [facility] Comment on above: Performed By: #### 2 31329 #### [facility],[address] [place] [address] 10388 MCHC (RBC) [Mass/Vol] 34 X10 3 Normal 32 - 36 [facility] Comment on above: Performed By: #### 2 23364 #### [facility],[address] [place] [address] 64218 MCV (RBC) [Entitic vol] 89 fL Normal 80 - 99 [facility] Comment on above: Performed By: #### 2 49790 #### [facility],[address] [place] [address] 98541 Monocytes (Bld) [#/Vol] 0.90 x10EE3/UL Normal 0.20 - 1.00 [facility] Comment on above: Performed By: #### 2 40124 #### [facility],[address] [place] [address] 99414 MONOS % 6.3 % Normal 0.0 - 10.0 [facility] Comment on above: Performed By: #### 2 62454 #### [facility],[address] [place] [address] 45038 Morphology Montez (Bld) [Interp] N/A Normal [facility] Comment on above: Performed By: #### 2 35569 #### [facility],[address] [place] [address] 78034 Neutrophils (Bld) [#/Vol] 7.30 x10EE3/UL High 1.50 - 7.10 [facility] Comment on above: Performed By: #### 2 45328 #### [facility],[address] [place] [address] 25644 Neutrophils/100 WBC (Bld) 52.6 % Normal 46.0 - 76.0 [facility] Comment on above: Performed By: #### 2 21801 #### [facility],[address] [place] [address] 09428 Platelet mean volume (Bld) [Entitic vol] 7.8 fL Normal 6.6 - 10.5 [facility] Comment on above: Result Comment: AUTO MATED DIFFERENTIAL Performed By: #### 2 93631 #### [facility],[address] [place] [address] 21745 Platelets (Bld) [#/Vol] 391 x10EE3/UL Normal 150 - 450 [facility] Comment on above: Performed By: #### 2 78329 #### [facility],[address] [place] [address] 04091 RBC (Bld) [#/Vol] 4.45 x 10EE6/UL Normal 4.10 - 5.30 [facility] Comment on above: Performed By: #### 2 33203 #### [facility],[address] [place] [address] 94118 WBC (Bld) [#/Vol] 13.8 x 10EE3/UL High 4.5 - 10.8 [facility] Comment on above: Performed By: #### 2 03595 #### [facility],[address] [place] [address] 16922 CMP with eGFRon 12-08-2018 Age - Reported 48 years Normal [facility] Comment on above: Performed By: #### 2 45862 #### [facility],[address] [place] [address] 38715 Albumin [Mass/Vol] 4.0 g/dL Normal 3.4 - 4.8 [facility] Comment on above: Performed By: #### 2 54004 #### [facility],[address] [place] [address] 29871 Albumin/Globulin [Mass ratio] 1.4 {ratio} Normal 0.9 - 1.6 [facility] Comment on above: Performed By: #### 2 44570 #### [facility],[address] [place] [address] 89810 ALK PHOS 70 U/L Normal 38 - 126 [facility] Comment on above: Performed By: #### 2 91305 #### [facility],[address] [place] [address] 98586 ALT/SGPT 9 U/L Normal 8 - 35 [facility] Comment on above: Performed By: #### 2 51030 #### [facility],[address] [place] [address] 60938 Anion gap [Moles/Vol] 12 mmol/L Normal 10 - 20 [facility] Comment on above: Performed By: #### 2 85355 #### [facility],[address] [place] [address] 78242 AST/SGOT 14 U/L Normal 13 - 39 [facility] Comment on above: Performed By: #### 2 10963 #### [facility],[address] [place] [address] 95532 B/C RATIO 21 ratio Normal 0 - 30 [facility] Comment on above: Performed By: #### 2 15878 #### [facility],[address] [place] [address] 93627 Bilirubin [Mass/Vol] 0.3 mg/dL Normal 0.0 - 1.5 [facility] Comment on above: Performed By: #### 2 25000 #### [facility],[address] [place] [address] 68278 Calcium [Mass/Vol] 9.6 mg/dL Normal 8.6 - 10.2 [facility] Comment on above: Performed By: #### 2 02210 #### [facility],[address] [place] [address] 06476 Chloride [Moles/Vol] 103 mmol/L Normal 98 - 107 [facility] Comment on above: Performed By: #### 2 49134 #### [facility],[address] [place] [address] 32336 CO2 [Moles/Vol] 25.0 mmol/L Normal 21.0 - 31.0 [facility] Comment on above: Performed By: #### 2 80875 #### [facility],[address] [place] [address] 63812 Creatinine [Mass/Vol] 0.7 mg/dL Normal 0.6 - 1.2 [facility] Comment on above: Performed By: #### 2 17421 #### [facility],[address] [place] [address] 31851 GFR/1.73 sq M predicted among non-blacks MDRD (S/P/Bld) [Vol rate/Area] Normal [facility] Comment on above: Result Comment: COMP REHENSIVE METABOLIC PANEL Performed By: #### 2 65609 #### [facility],[address] [place] [address] 56376 GFR/1.73 sq M predicted among non-blacks MDRD (S/P/Bld) [Vol rate/Area] mL/min/{1.73_m2} Normal 60 - 999 [facility] Comment on above: Performed By: #### 2 48650 #### [facility],[address] [place] [address] 35343 Result Comment: ACCO RDING TO THE NATIONAL KIDNEY DISEASE EDUCATION PROGRAM(NKDE), A NORMAL eGFR IS A VALUE GREATER THAN OR EQUAL TO 60 ML/MIN/1.73 SQ METERS. CHRONIC KIDNEY DISEASE: <60mL/MIN/1.73 SQ METERS KIDNEY FAILURE: <15mL/MIN/1.73 SQ METERS THIS TEST SHOULD ONLY BE USED FOR PATIENTS 18 YEARS OF AGE AND OLDER. Globulin (S) [Mass/Vol] 2.9 g/dL Normal 1.5 - 3.8 [facility] Comment on above: Performed By: #### 2 92790 #### [address] [address] Glucose [Mass/Vol] 121 mg/dL High 74 - 106 [facility] Comment on above: Performed By: #### 2 83021 #### [address] [address] Potassium [Moles/Vol] 3.6 mmol/L Normal 3.5 - 5.1 [facility] Comment on above: Performed By: #### 2 09752 #### [address] [address] Protein [Mass/Vol] 6.9 g/dL Normal 6.4 - 8.3 [facility] Comment on above: Performed By: #### 2 28893 #### [address] [address] Sodium [Moles/Vol] 136 mmol/L Normal 136 - 145 [facility] Comment on above: Performed By: #### 2 23554 #### [address] [address] Urea nitrogen [Mass/Vol] 15 mg/dL Normal 6 - 20 [facility] Comment on above: Performed By: #### 2 93537 #### [address] [address] LIPASEon 12-08-2018 Lipase [Catalytic activity/Vol] 12.0 U/L Low 18.0 - 51.0 [facility] Comment on above: Performed By: #### 2 22443 #### [facility],[address] [place] [address] SEDRATEon 12-08-2018 SEDRATE 13 mm/hr Normal 0 - 30 [facility] Comment on above: Performed By: #### 2 23023 #### [facility],[address] [place] [address] HGB A1Con 05-12-2018 HbA1c (Bld) [Mass fraction] 6.7 % High 4.4 - 6.4 [facility] Comment on above: Result Comment: {HB] {A1] Performed By: #### 2 28448 #### [place] [address] CBCon 02-03-2018 Basophils (Bld) [#/Vol] 0.10 x10EE3/UL Normal 0.00 - 0.10 [facility] Comment on above: Performed By: #### 2 42272 #### [address] [address] Basophils/100 WBC (Bld) 1.1 % Normal 0.0 - 2.0 [facility] Comment on above: Performed By: #### 2 69601 #### [facility],[address] [place] [address] CBC Normal [facility] Comment on above: Result Comment: CBC- COMPLETE BLOOD COUNT Performed By: #### 2 77300 #### [place] [id number] Eosinophils (Bld) [#/Vol] 0.30 x10EE3/UL Normal 0.00 - 0.50 [facility] Comment on above: Performed By: #### 2 92614 #### [address] [address] Eosinophils/100 WBC (Bld) 3.5 % Normal 0.0 - 7.0 [facility] Comment on above: Performed By: #### 2 91543 #### [facility],[address] [place] [address] 71656 Erythrocyte distribution width (RBC) [Ratio] 14.3 % Normal 12.0 - 15.6 [facility] Comment on above: Performed By: #### 2 98887 #### [facility],[address] [place], [place] [id number] Hematocrit (Bld) [Volume fraction] 42.3 % Normal 34.0 - 46.0 [facility] Comment on above: Performed By: #### 2 81989 #### [facility],[address] [place], [place] [id number] Hemoglobin (Bld) [Mass/Vol] 14.5 g/dL Normal 12.0 - 16.0 [facility] Comment on above: Performed By: #### 2 06185 #### [facility],[address] [place] [address] 70984 Lymphocytes (Bld) [#/Vol] 3.20 x10EE3/UL High 0.80 - 2.80 [facility] Comment on above: Performed By: #### 2 78706 #### [facility],[address] [place] [address] 95529 Lymphocytes/100 WBC (Bld) 32.7 % Normal 20.0 - 45.0 [facility] Comment on above: Performed By: #### 2 04242 #### [facility],[address] [place] [address] 19489 MANUAL DIFF N/A Normal [facility] Comment on above: Performed By: #### 2 72829 #### [facility],[address] [place] [address] 40968 MCH (RBC) [Entitic mass] 31 pg Normal 27 - 33 [facility] Comment on above: Performed By: #### 2 11233 #### [facility],[address] [place] [address] 76456 MCHC (RBC) [Mass/Vol] 34 X10 3 Normal 32 - 36 [facility] Comment on above: Performed By: #### 2 18973 #### [facility],[address] [place] [address] 29565 MCV (RBC) [Entitic vol] 89 fL Normal 80 - 99 [facility] Comment on above: Performed By: #### 2 82527 #### [facility],[address] [place] [address] 36822 Monocytes (Bld) [#/Vol] 0.80 x10EE3/UL Normal 0.20 - 1.00 [facility] Comment on above: Performed By: #### 2 02080 #### [facility],[address] [place] [address] 87671 MONOS % 8.1 % Normal 0.0 - 10.0 [facility] Comment on above: Performed By: #### 2 10086 #### [facility],[address] [place] [address] 42981 Morphology Montez (Bld) [Interp] N/A Normal [facility] Comment on above: Result Comment: {CD] Performed By: #### 2 88029 #### [facility],[address] [place] [address] 54172 Neutrophils (Bld) [#/Vol] 5.30 x10EE3/UL Normal 1.50 - 7.10 [facility] Comment on above: Performed By: #### 2 58824 #### [facility],[address] [place] [address] 45855 Neutrophils/100 WBC (Bld) 54.6 % Normal 46.0 - 76.0 [facility] Comment on above: Performed By: #### 2 78482 #### [facility],[address] [place] [address] 34048 Platelet mean volume (Bld) [Entitic vol] 8.9 fL Normal 6.6 - 10.5 [facility] Comment on above: Result Comment: AUTO MATED DIFFERENTIAL Performed By: #### 2 34514 #### [facility],[address] [place] [address] 73945 Platelets (Bld) [#/Vol] 414 x10EE3/UL Normal 150 - 450 [facility] Comment on above: Performed By: #### 2 75037 #### [facility],[address] [place] [address] 69708 RBC (Bld) [#/Vol] 4.73 x 10EE6/UL Normal 4.10 - 5.30 [facility] Comment on above: Performed By: #### 2 35934 #### [facility],[address] [place] [address] 20595 WBC (Bld) [#/Vol] 9.6 x 10EE3/UL Normal 4.5 - 10.8 [facility] Comment on above: Performed By: #### 2 12782 #### [facility],[address] [place] [address] 50298 CMP with eGFRon 02-03-2018 Age - Reported 47 years Normal [facility] Comment on above: Performed By: #### 2 61515 #### [facility],[address] [place] [address] 18308 Albumin [Mass/Vol] 3.9 g/dL Normal 3.4 - 4.8 [facility] Comment on above: Performed By: #### 2 64710 #### [facility],[address] [place] [address] 86976 Albumin/Globulin [Mass ratio] 1.3 {ratio} Normal 0.9 - 1.6 [facility] Comment on above: Performed By: #### 2 89521 #### [facility],[address] [place] [address] 69738 ALK PHOS 67 U/L Normal 38 - 126 [facility] Comment on above: Performed By: #### 2 14347 #### [facility],[address] [place] [address] 85505 ALT/SGPT 6 U/L Low 8 - 35 [facility] Comment on above: Performed By: #### 2 70357 #### [facility],[address] [place] [address] 39956 Anion gap [Moles/Vol] 10 mmol/L Normal 10 - 20 [facility] Comment on above: Performed By: #### 2 59547 #### [facility],[address] [place] [address] 90197 AST/SGOT 11 U/L Low 13 - 39 [facility] Comment on above: Performed By: #### 2 60701 #### [facility],[address] [place] [address] 02009 B/C RATIO 13 ratio Normal 0 - 30 [facility] Comment on above: Performed By: #### 2 36278 #### [facility],[address] [place] [address] 70071 Bilirubin [Mass/Vol] 0.4 mg/dL Normal 0.0 - 1.5 [facility] Comment on above: Performed By: #### 2 09253 #### [facility],[address] [place] [address] 11284 Calcium [Mass/Vol] 9.4 mg/dL Normal 8.6 - 10.2 [facility] Comment on above: Performed By: #### 2 97526 #### [facility],[address] [place] [address] 89574 Chloride [Moles/Vol] 103 mmol/L Normal 98 - 107 [facility] Comment on above: Performed By: #### 2 10362 #### [facility],[address] [place] [address] 62856 CO2 [Moles/Vol] 26.5 mmol/L Normal 21.0 - 31.0 [facility] Comment on above: Performed By: #### 2 05606 #### [facility],[address] [place] [address] 89223 Creatinine [Mass/Vol] 0.8 mg/dL Normal 0.6 - 1.2 [facility] Comment on above: Performed By: #### 2 20665 #### [facility],[address] [place] [address] 91450 GFR/1.73 sq M predicted among non-blacks MDRD (S/P/Bld) [Vol rate/Area] mL/min/{1.73_m2} Normal 60 - 999 [facility] Comment on above: Performed By: #### 2 33792 #### [facility],[address] [place] [address] 11114 Result Comment: ACCO RDING TO THE NATIONAL KIDNEY DISEASE EDUCATION PROGRAM(NKDE), A NORMAL eGFR IS A VALUE GREATER THAN OR EQUAL TO 60 ML/MIN/1.73 SQ METERS. CHRONIC KIDNEY DISEASE: <60mL/MIN/1.73 SQ METERS KIDNEY FAILURE: <15mL/MIN/1.73 SQ METERS THIS TEST SHOULD ONLY BE USED FOR PATIENTS 18 YEARS OF AGE AND OLDER. GFR/1.73 sq M predicted among non-blacks MDRD (S/P/Bld) [Vol rate/Area] Normal [facility] Comment on above: Result Comment: COMP REHENSIVE METABOLIC PANEL Performed By: #### 2 11276 #### [facility],[address] [place] [address] 73416 Globulin (S) [Mass/Vol] 3.0 g/dL Normal 1.5 - 3.8 [facility] Comment on above: Performed By: #### 2 44421 #### [facility],[address] [place] [address] 40064 Glucose [Mass/Vol] 150 mg/dL High 74 - 106 [facility] Comment on above: Performed By: #### 2 92958 #### [facility],[address] [place] [address] 63901 Potassium [Moles/Vol] 4.3 mmol/L Normal 3.5 - 5.1 [facility] Comment on above: Performed By: #### 2 80770 #### [facility],[address] [place] [address] 12857 Protein [Mass/Vol] 6.9 g/dL Normal 6.4 - 8.3 [facility] Comment on above: Performed By: #### 2 49833 #### [facility],[address] [place] [address] 01248 Sodium [Moles/Vol] 135 mmol/L Low 136 - 145 [facility] Comment on above: Performed By: #### 2 58587 #### [facility],[address] [place] [address] 37181 Urea nitrogen [Mass/Vol] 10 mg/dL Normal 6 - 20 [facility] Comment on above: Performed By: #### 2 86025 #### [facility],[address] [place] [address] 50734 HGB A1Con 02-03-2018 HbA1c (Bld) [Mass fraction] 6.8 % High 4.4 - 6.4 [facility] Comment on above: Result Comment: {HB] {A1] Performed By: #### 2 92593 #### [facility],[address] [place] [address] 04788 LIPID PROFILEon 02-03-2018 Cholesterol [Mass/Vol] 148 mg/dL Normal 0 - 200 [facility] Comment on above: Performed By: #### 2 12107 #### [facility],[address] [place] [address] 25356 Cholesterol in HDL [Mass/Vol] 26 mg/dL Low 40 - 60 [facility] Comment on above: Performed By: #### 2 27468 #### [facility],[address] [place] [address] 20734 Cholesterol in LDL [Mass/Vol] 82 mg/dL Normal 0 - 129 [facility] Comment on above: Performed By: #### 2 00208 #### [facility],[address] [place] [address] 80280 Cholesterol.total/Chol esterol in HDL [Mass ratio] 5.7 {ratio} High 0.0 - 5.0 [facility] Comment on above: Performed By: #### 2 37629 #### [facility],[address] [place] [address] 28248 Lipid 1996 panel Normal [facility] Comment on above: Result Comment: LIPI D PROFILE Performed By: #### 2 08965 #### [facility],[address] [place] [address] 49439 Triglyceride [Mass/Vol] 199 mg/dL High 0 - 150 [facility] Comment on above: Performed By: #### 2 13073 #### [facility],[address] [place], [place] [id number] Influenza virus A and B and SARS-CoV-2 (COVID-19) Ag panel - Upper respiratory specim SARS-CoV-2 & FLU Antigen (Rapid) SARS-CoV-2 (COVID 19) [facility] Work Phone: Vital Signs Date Time Vital Sign Value Performing Clinician [place] 10-14-2024 10:17-0400 Body height 170.[address] Shashank Tai MD Work Phone: [facility] 10-14-2024 10:17-0400 Body mass index (BMI) [Ratio] 29.6 kg/m2 Dr. Shashank Tai MD Work Phone: [facility] 10-14-2024 10:17-0400 Body weight 85.[address] Shashank Tai MD Work Phone: [facility] 10-14-2024 10:17-0400 Diastolic blood pressure 76 mm[Hg] Dr. Shashank Tai MD Work Phone: [facility] 10-14-2024 10:17-0400 Heart rate 65 /min Dr. Shashank Tai MD Work Phone: 8(522)908-501658 [place] [address] 10-14-2024 10:17-0400 Respiratory rate 16 /min Dr. Shashank Tai MD Work Phone: 2(205)355-588958 [place] [address] 10-14-2024 10:17-0400 SaO2% (BldA) [Mass fraction] 97 % Dr. Shashank Tai MD Work Phone: 2(794)008-505858 [place] [address] 10-14-2024 10:17-0400 Systolic blood pressure 109 mm[Hg] Dr. Shashank Tai MD Work Phone: 0(097)956-096758 [place] [address] 07-26-2024 11:10-0500 Body temperature 97.5 [degF] Dr. Shashank Tai MD Work Phone: 4(193)048-060858 [place] [address] 07-26-2024 11:10-0500 Diastolic blood pressure 72 mm[Hg] Dr. Shashank Tai MD Work Phone: 4(449)756-770958 [place] [address] 07-26-2024 11:10-0500 Heart rate 60 /min Dr. Shashank Tai MD Work Phone: 2(808)302-518058 [place] [address] 07-26-2024 11:10-0500 Respiratory rate 18 /min Dr. Shashank Tai MD Work Phone: 8(733)178-525258 [place] [address] 07-26-2024 11:10-0500 SaO2% (BldA) [Mass fraction] 95 % Dr. Shashank Tai MD Work Phone: 4(746)852-610958 [place] [address] 07-26-2024 11:10-0500 Systolic blood pressure 103 mm[Hg] Dr. Shashank Tai MD Work Phone: 5(600)370-320258 [place] [address] 07-26-2024 09:06-0500 Body height 170.[address] Shashank Tai MD Work Phone: 3(151)023-585558 [place] [address] 07-26-2024 09:06-0500 Body mass index (BMI) [Ratio] 29.7 kg/m2 Dr. Shashank Tai MD Work Phone: 8(138)111-103058 [place] [address] 07-26-2024 09:06-0500 Body weight [address] Shashank Tai MD Work Phone: 7(905)872-202058 [place] [address] 06-23-2024 11:15-0500 Body mass index (BMI) [Ratio] 29 kg/m2 Dr. Shashank Tai MD Work Phone: 4(161)659-268478 [place] [address] 06-23-2024 11:15-0500 Body temperature 98.5 [degF] Dr. Shashank Tai MD Work Phone: 9(595)499-071278 [place] [address] 06-23-2024 11:15-0500 Body weight 83.[address] Shashank Tai MD Work Phone: 2(715)194-272178 [place] [address] 06-23-2024 11:15-0500 Diastolic blood pressure 79 mm[Hg] Dr. Shashank Tai MD Work Phone: 0(806)477-708258 [place] [address] 06-23-2024 11:15-0500 Heart rate 82 /min Dr. Shashank Tai MD Work Phone: 0(474)518-312258 [place] [address] 06-23-2024 11:15-0500 Respiratory rate 16 /min Dr. Shashank Tai MD Work Phone: 1(023)582-302158 [place] [address] 06-23-2024 11:15-0500 SaO2% (BldA) [Mass fraction] 99 % Dr. Shashank Tai MD Work Phone: 7(775)664-582778 [place] [address] 06-23-2024 11:15-0500 Systolic blood pressure 123 mm[Hg] Dr. Shashank Tai MD Work Phone: 7(294)270-780378 [place] [address] 06-06-2024 11:04-0500 Body temperature 97.4 [degF] Dr. Shashank Tai MD Work Phone: 9(263)183-645178 [place] [address] 06-06-2024 11:04-0500 Diastolic blood pressure 80 mm[Hg] Dr. Shashank Tai MD Work Phone: 4(270)957-486878 [place] [address] 06-06-2024 11:04-0500 Heart rate 99 /min Dr. Shashank Tai MD Work Phone: 9(783)605-413078 [place] [address] 06-06-2024 11:04-0500 Respiratory rate 12 /min Dr. Shashank Tai MD Work Phone: 8(943)344-085178 [place] [address] 06-06-2024 11:04-0500 SaO2% (BldA) [Mass fraction] 99 % Dr. Shashank Tai MD Work Phone: [facility] 06-06-2024 11:04-0500 Systolic blood pressure 120 mm[Hg] Dr. Shashank Tai MD Work Phone: [facility] 05-10-2024 11:17-0500 Body weight 84.[address] Shashank Tai MD Work Phone: 8(356)169-904578 [place] [address] 05-10-2024 11:17-0500 Diastolic blood pressure 79 mm[Hg] Dr. Shashank Tai MD Work Phone: 1(707)944-142904 [address] 05-10-2024 11:17-0500 Heart rate 77 /min Dr. Shashank Tai MD Work Phone: 8(225)730-782058 [place] [address] 05-10-2024 11:17-0500 Respiratory rate 16 /min Dr. Shashank Tai MD Work Phone: 6(011)555-999658 [place] [address] 05-10-2024 11:17-0500 SaO2% (BldA) [Mass fraction] 94 % Dr. Shashank Tai MD Work Phone: 7(904)889-145178 [place] [address] 05-10-2024 11:17-0500 Systolic blood pressure 116 mm[Hg] Dr. Shashank Tai MD Work Phone: 4(972)845-339678 [place] [address] 07-25-2023 20:29-0500 Body temperature 98.5 [degF] Dr. Shashank Tai Work Phone: 0(109)825-775978 [place] [address] 07-25-2023 20:29-0500 Diastolic blood pressure 57 mm[Hg] Dr. Shashank Tai Work Phone: [facility] 07-25-2023 20:29-0500 Heart rate 92 /min Dr. Shashank Tai Work Phone: [facility] 07-25-2023 20:29-0500 Respiratory rate 16 /min Dr. Shashank Tai Work Phone: [facility] 07-25-2023 20:29-0500 SaO2% (BldA) [Mass fraction] 99 % Dr. Shashank Tai Work Phone: [facility] 07-25-2023 20:29-0500 Systolic blood pressure 96 mm[Hg] Dr. Shashank Tai Work Phone: 7(033)980-462978 [place] [address] 07-25-2023 18:28-0500 Body height 170.[address] Shashank Tai Work Phone: 2(661)360-237178 [place] [address] 07-25-2023 18:28-0500 Body mass index (BMI) [Ratio] 27.2 kg/m2 Dr. Shashank Tai Work Phone: 7(197)471-810178 [place] [address] 07-25-2023 18:28-0500 Body weight [address] Shashank Tai Work Phone: 1(125)220-540658 [place] [address] 06-26-2023 21:36-0500 Diastolic blood pressure 79 mm[Hg] Dr. Shashank Tai Work Phone: 8(635)826-069858 [place] [address] 06-26-2023 21:36-0500 Heart rate 83 /min Dr. Shashank Tai Work Phone: 2(955)906-822858 [place] [address] 06-26-2023 21:36-0500 Respiratory rate 20 /min Dr. Shashank Tai Work Phone: 9(766)079-905758 [place] [address] 06-26-2023 21:36-0500 SaO2% (BldA) [Mass fraction] 97 % Dr. Shashank Tai Work Phone: 0(571)804-392958 [place] [address] 06-26-2023 21:36-0500 Systolic blood pressure 133 mm[Hg] Dr. Shashank Tai Work Phone: 5(287)156-348578 [place] [address] 06-26-2023 18:26-0500 Body height 170.[address] Shashank Tai Work Phone: 3(979)596-819958 [place] [address] 06-26-2023 18:26-0500 Body mass index (BMI) [Ratio] 27.3 kg/m2 Dr. Shashank Tai Work Phone: 1(788)294-239858 [place] [address] 06-26-2023 18:26-0500 Body temperature 97.8 [degF] Dr. Shashank Tai Work Phone: 7(698)825-344358 [place] [address] 06-26-2023 18:26-0500 Body weight 79.[address] Shashank Tai Work Phone: 3(323)577-575978 [place] [address] 06-10-2023 22:49-0500 Diastolic blood pressure 71 mm[Hg] Dr. Shashank Tai Work Phone: 1(598)440-344278 [place] [address] 06-10-2023 22:49-0500 Heart rate 81 /min Dr. Shashank Tai Work Phone: 6(150)908-369258 [place] [address] 06-10-2023 22:49-0500 Respiratory rate 16 /min Dr. Shashank Tai Work Phone: 2(894)414-624658 [place] [address] 06-10-2023 22:49-0500 SaO2% (BldA) [Mass fraction] 98 % Dr. Shashank Tai Work Phone: 2(699)582-766458 [place] [address] 06-10-2023 22:49-0500 Systolic blood pressure 115 mm[Hg] Dr. Shashank Tai Work Phone: 0(669)588-129458 [place] [address] 06-10-2023 18:35-0500 Body height 170.[address] Shashank Tai Work Phone: 6(413)973-439958 [place] [address] 06-10-2023 18:35-0500 Body mass index (BMI) [Ratio] 30.5 kg/m2 Dr. Shashank Tai Work Phone: 4(569)043-615858 [place] [address] 06-10-2023 18:35-0500 Body temperature 97.5 [degF] Dr. Shashank Tai Work Phone: 7(354)079-849978 [place] [address] 06-10-2023 18:35-0500 Body weight 88.[address] Shashank Tai Work Phone: 0(921)456-732658 [place] [address] 06-10-2023 17:52-0500 Body mass index (BMI) [Ratio] 30.5 kg/m2 Dr. Shashank Tai Work Phone: 3(399)126-700678 [place] [address] 06-10-2023 17:52-0500 Body temperature 98.1 [degF] Dr. Shashank Tai Work Phone: 1(074)799-142078 [place] [address] 06-10-2023 17:52-0500 Body weight 88.[address] Shashank Tai Work Phone: [facility] 06-10-2023 17:52-0500 Diastolic blood pressure 68 mm[Hg] Dr. Shashank Tai Work Phone: [facility] 06-10-2023 17:52-0500 Heart rate 98 /min Dr. Shashank Tai Work Phone: [facility] 06-10-2023 17:52-0500 Respiratory rate 14 /min Dr. Shashank Tai Work Phone: [facility] 06-10-2023 17:52-0500 SaO2% (BldA) [Mass fraction] 96 % Dr. Shashank Tai Work Phone: [facility] 06-10-2023 17:52-0500 Systolic blood pressure 120 mm[Hg] Dr. Shashank Tai Work Phone: [facility] 06-01-2023 01:22-0500 Heart rate 71 /min Dr. Shashank Tai Work Phone: [facility] 06-01-2023 01:22-0500 Respiratory rate 18 /min Dr. Shashank Tai Work Phone: [facility] 06-01-2023 01:22-0500 SaO2% (BldA) [Mass fraction] 94 % Dr. Shashank Tai Work Phone: [facility] 06-01-2023 00:16-0500 Body temperature 97.6 [degF] Dr. Shashank Tai Work Phone: [facility] 06-01-2023 00:16-0500 Diastolic blood pressure 80 mm[Hg] Dr. Shashank Tai Work Phone: [facility] 06-01-2023 00:16-0500 Systolic blood pressure 130 mm[Hg] Dr. Shashank Tai Work Phone: [facility] 2023 22:16-0500 Body height 167.[address] Shashank Tai Work Phone: [facility] 2023 22:16-0500 Body mass index (BMI) [Ratio] 29.6 kg/m2 Dr. Shashank Tai Work Phone: [facility] 2023 22:16-0500 Body weight 83.[address] Shashank Tai Work Phone: [facility] 05-17-2023 11:46-0500 Body temperature 98 [degF] Dr. Shashank Tai Work Phone: [facility] 05-17-2023 11:46-0500 Diastolic blood pressure 58 mm[Hg] Dr. Shashank Tai Work Phone: 4(864)244-122478 [place] [address] 05-17-2023 11:46-0500 Heart rate 63 /min Dr. Shashank Tai Work Phone: 5(971)503-686178 [place] [address] 05-17-2023 11:46-0500 Respiratory rate 16 /min Dr. Shashank Tai Work Phone: [facility] 05-17-2023 11:46-0500 SaO2% (BldA) [Mass fraction] 96 % Dr. Shashank Tai Work Phone: 5(721)283-199778 [place] [address] 05-17-2023 11:46-0500 Systolic blood pressure 120 mm[Hg] Dr. Shashank Tai Work Phone: [facility] 05-17-2023 06:00-0500 Body mass index (BMI) [Ratio] 29.3 kg/m2 Dr. Shashank Tai Work Phone: [facility] 05-17-2023 06:00-0500 Body weight 84.[address] Shashank Tai Work Phone: 8(559)186-854778 [place] [address] 05-16-2023 07:44-0500 Body temperature 97.9 [degF] Dr. Shashank Tai Work Phone: [facility] 05-16-2023 07:44-0500 Diastolic blood pressure 74 mm[Hg] Dr. Shashank Tai Work Phone: 9(131)509-597678 [place] [address] 05-16-2023 07:44-0500 Heart rate 60 /min Dr. Shashank Tai Work Phone: [facility] 05-16-2023 07:44-0500 Respiratory rate 18 /min Dr. Shashank Tai Work Phone: [facility] 05-16-2023 07:44-0500 SaO2% (BldA) [Mass fraction] 97 % Dr. Shashank Tai Work Phone: [facility] 05-16-2023 07:44-0500 Systolic blood pressure 139 mm[Hg] Dr. Shashank Tai Work Phone: [facility] 05-16-2023 04:31-0500 Body mass index (BMI) [Ratio] 29.2 kg/m2 Dr. Shashank Tai Work Phone: [facility] 05-16-2023 04:31-0500 Body weight 84.[address] Shashank Tai Work Phone: [facility] 05-15-2023 04:25-0500 Body height [address] Shashank Tai Work Phone: [facility] 05-15-2023 03:02-0500 Body temperature 98.1 [degF] Dr. Shashank Tai Work Phone: [facility] 05-15-2023 03:02-0500 Diastolic blood pressure 60 mm[Hg] Dr. Shashank Tai Work Phone: [facility] 05-15-2023 03:02-0500 Heart rate 64 /min Dr. Shashank Tai Work Phone: [facility] 05-15-2023 03:02-0500 Respiratory rate 15 /min Dr. Shashank Tai Work Phone: [facility] 05-15-2023 03:02-0500 SaO2% (BldA) [Mass fraction] 98 % Dr. Shashank Tai Work Phone: [facility] 05-15-2023 03:02-0500 Systolic blood pressure 111 mm[Hg] Dr. Shashank Tai Work Phone: [facility] 05-15-2023 00:32-0500 Body height 170.[address] Shashank Tai Work Phone: [facility] 05-15-2023 00:32-0500 Body mass index (BMI) [Ratio] 29.4 kg/m2 Dr. Shashank Tai Work Phone: 9(785)909-841378 [place] [address] 05-15-2023 00:32-0500 Body weight 85.[address] Shashank Tai Work Phone: 7(802)621-880378 [place] [address] 03-04-2023 13:59-0400 Body height 157.[address] Shashank Tai Work Phone: 2(018)720-407178 [place] [address] 02-08-2023 19:14-0400 Body height 170.[address] Shashank Tai Work Phone: 9(787)765-605504 [address] 02-08-2023 19:14-0400 Body mass index (BMI) [Ratio] 30.7 kg/m2 Dr. Shashank Tai Work Phone: 2(216)554-524778 [place] [address] 02-08-2023 19:14-0400 Body temperature 98 [degF] Dr. Shashank Tai Work Phone: 0(651)966-075578 [place] [address] 02-08-2023 19:14-0400 Body weight 89.[address] Shashank Tai Work Phone: 1(391)966-599258 [place] [address] 02-08-2023 19:14-0400 Diastolic blood pressure 80 mm[Hg] Dr. Shashank Tai Work Phone: 4(944)425-485578 [place] [address] 02-08-2023 19:14-0400 Heart rate 80 /min Dr. Shashank Tai Work Phone: 0(294)622-959378 [place] [address] 02-08-2023 19:14-0400 Respiratory rate 16 /min Dr. Shashank Tai Work Phone: [facility] 02-08-2023 19:14-0400 SaO2% (BldA) [Mass fraction] 98 % Dr. Shashank Tai Work Phone: 1(546)599-901978 [place] [address] 02-08-2023 19:14-0400 Systolic blood pressure 152 mm[Hg] Dr. Shashank Tai Work Phone: [facility] 01-29-2023 16:11-0400 Body mass index (BMI) [Ratio] 31 kg/m2 Dr. Shashank Tai Work Phone: [facility] 01-29-2023 16:11-0400 Body temperature 98.4 [degF] Dr. Shashank Tai Work Phone: [facility] 01-29-2023 16:11-0400 Body weight 89.[address] Shashank Tai Work Phone: [facility] 01-29-2023 16:11-0400 Diastolic blood pressure 85 mm[Hg] Dr. Shashank Tai Work Phone: [facility] 01-29-2023 16:11-0400 Heart rate 73 /min Dr. Shashank Tai Work Phone: [facility] 01-29-2023 16:11-0400 Respiratory rate 18 /min Dr. Shashank Tai Work Phone: [facility] 01-29-2023 16:11-0400 SaO2% (BldA) [Mass fraction] 98 % Dr. Shashank Tai Work Phone: [facility] 01-29-2023 16:11-0400 Systolic blood pressure 128 mm[Hg] Dr. Shashank Tai Work Phone: [facility] 12-30-2022 15:26-0400 Diastolic blood pressure 55 mm[Hg] Dr. Shashank Tai Work Phone: [facility] 12-30-2022 15:26-0400 Heart rate 72 /min Dr. Shashank Tai Work Phone: [facility] 12-30-2022 15:26-0400 Systolic blood pressure 106 mm[Hg] Dr. Shashank Tai Work Phone: [facility] 12-30-2022 13:25-0400 Body height 170.[address] Shashank Tai Work Phone: [facility] 12-30-2022 13:25-0400 Body mass index (BMI) [Ratio] 30.5 kg/m2 Dr. Shashank Tai Work Phone: 9(181)097-296978 [place] [address] 12-30-2022 13:25-0400 Body temperature 95.9 [degF] Dr. Shashank Tai Work Phone: 7(545)467-065578 [place] [address] 12-30-2022 13:25-0400 Body weight 88.[address] Shashank Tai Work Phone: 9(730)190-845058 [place] [address] 12-30-2022 13:25-0400 Respiratory rate 16 /min Dr. Shashank Tai Work Phone: 6(369)186-278358 [place] [address] 12-30-2022 13:25-0400 SaO2% (BldA) [Mass fraction] 96 % Dr. Shashank Tai Work Phone: 9(231)180-023378 [place] [address] 12-06-2022 13:38-0400 Body temperature 96.7 [degF] Dr. Shashank Tai Work Phone: 4(544)563-792858 [place] [address] 12-06-2022 13:38-0400 Diastolic blood pressure 47 mm[Hg] Dr. Shashank Tai Work Phone: 1(386)185-595558 [place] [address] 12-06-2022 13:38-0400 Heart rate 84 /min Dr. Shashank Tai Work Phone: 9(141)276-415658 [place] [address] 12-06-2022 13:38-0400 Respiratory rate 16 /min Dr. Shashank Tai Work Phone: 6(009)768-260178 [place] [address] 12-06-2022 13:38-0400 SaO2% (BldA) [Mass fraction] 95 % Dr. Shashank Tai Work Phone: 2(136)656-908458 [place] [address] 12-06-2022 13:38-0400 Systolic blood pressure 118 mm[Hg] Dr. Shashank Tai Work Phone: 5(848)367-792758 [place] [address] 12-06-2022 11:20-0400 Body height 172.[address] Shashank Tai Work Phone: 8(500)062-226458 [place] [address] 12-06-2022 11:20-0400 Body mass index (BMI) [Ratio] 29.6 kg/m2 Dr. Shashank Tai Work Phone: 6(059)401-776478 [place] [address] 12-06-2022 11:20-0400 Body weight 88.[address] Shashank Tai Work Phone: 2(687)800-717858 [place] [address] 10-09-2022 14:58-0400 Body mass index (BMI) [Ratio] 30.6 kg/m2 Dr. Shashank Tai Work Phone: 9(345)388-791258 [place] [address] 10-09-2022 14:58-0400 Body temperature 98.4 [degF] Dr. Shashank Tai Work Phone: 6(937)238-657958 [place] [address] 10-09-2022 14:58-0400 Body weight 88.[address] Shashank Tai Work Phone: 1(903)974-147258 [place] [address] 10-09-2022 14:58-0400 Diastolic blood pressure 74 mm[Hg] Dr. Shashank Tai Work Phone: 5(322)925-655658 [place] [address] 10-09-2022 14:58-0400 Heart rate 90 /min Dr. Shashank Tai Work Phone: 1(491)194-898858 [place] [address] 10-09-2022 14:58-0400 Respiratory rate 16 /min Dr. Shashank Tai Work Phone: 4(663)689-897558 [place] [address] 10-09-2022 14:58-0400 SaO2% (BldA) [Mass fraction] 99 % Dr. Shashank Tai Work Phone: 9(263)399-306778 [place] [address] 10-09-2022 14:58-0400 Systolic blood pressure 125 mm[Hg] Dr. Shashank Tai Work Phone: 4(055)516-468358 [place] [address] 07-31-2022 15:28-0500 Diastolic blood pressure 63 mm[Hg] Dr. Shashank Tai Work Phone: 5(502)197-338958 [place] [address] 07-31-2022 15:28-0500 SaO2% (BldA) [Mass fraction] 96 % Dr. Shashank Tai Work Phone: 2(601)402-106378 [place] [address] 07-31-2022 15:28-0500 Systolic blood pressure 101 mm[Hg] Dr. Shashank Tai Work Phone: [facility] 07-31-2022 13:05-0500 Heart rate 80 /min Dr. Shashank Tai Work Phone: [facility] 07-31-2022 11:25-0500 Body height 170.[address] Shashank Tai Work Phone: [facility] 07-31-2022 11:25-0500 Body mass index (BMI) [Ratio] 29.8 kg/m2 Dr. Shashank Tai Work Phone: [facility] 07-31-2022 11:25-0500 Body temperature 97.5 [degF] Dr. Shashank Tai Work Phone: [facility] 07-31-2022 11:25-0500 Body weight 86.[address] Shashank Tai Work Phone: [facility] 07-31-2022 11:25-0500 Respiratory rate 16 /min Dr. Shashank Tai Work Phone: [facility] 07-30-2022 04:52-0500 Diastolic blood pressure 62 mm[Hg] Dr. Shashank Tai Work Phone: [facility] 07-30-2022 04:52-0500 Heart rate 85 /min Dr. Shashank Tai Work Phone: [facility] 07-30-2022 04:52-0500 Respiratory rate 15 /min Dr. Shashank Tai Work Phone: [facility] 07-30-2022 04:52-0500 SaO2% (BldA) [Mass fraction] 97 % Dr. Shashank Tai Work Phone: [facility] 07-30-2022 04:52-0500 Systolic blood pressure 117 mm[Hg] Dr. Shashank Tai Work Phone: [facility] 07-30-2022 02:42-0500 Body height 170.[address] Shashank Tai Work Phone: [facility] 07-30-2022 02:42-0500 Body mass index (BMI) [Ratio] 30 kg/m2 Dr. Shashank Tai Work Phone: [facility] 07-30-2022 02:42-0500 Body temperature 97.2 [degF] Dr. Shashank Tai Work Phone: [facility] 07-30-2022 02:42-0500 Body weight 87.[address] Shashank Tai Work Phone: [facility] 07-09-2022 11:10-0500 Body temperature 96.8 [degF] Dr. Shashank Tai Work Phone: [facility] 07-09-2022 11:10-0500 Diastolic blood pressure 50 mm[Hg] Dr. Shashank Tai Work Phone: 8(817)468-127978 [place] [address] 07-09-2022 11:10-0500 Heart rate 50 /min Dr. Shashank Tai Work Phone: [facility] 07-09-2022 11:10-0500 Respiratory rate 12 /min Dr. Shashank Tai Work Phone: [facility] 07-09-2022 11:10-0500 SaO2% (BldA) [Mass fraction] 97 % Dr. Shashank Tai Work Phone: [facility] 07-09-2022 11:10-0500 Systolic blood pressure 113 mm[Hg] Dr. Shashank Tai Work Phone: [facility] 07-09-2022 06:42-0500 Body height 171.[address] Shashank Tai Work Phone: [facility] 07-09-2022 06:42-0500 Body mass index (BMI) [Ratio] 28.5 kg/m2 Dr. Shashank Tai Work Phone: [facility] 07-09-2022 06:42-0500 Body weight 84.[address] Shashank Tai Work Phone: 2(274)491-668978 [place] [address] 07-08-2022 09:58-0500 Body mass index (BMI) [Ratio] 29.2 kg/m2 Dr. Shashank Tai Work Phone: [facility] 07-08-2022 09:58-0500 Body temperature 98.1 [degF] Dr. Shashank Tai Work Phone: 9(011)233-609278 [place] [address] 07-08-2022 09:58-0500 Body weight 84.[address] Shashank Tai Work Phone: 8(895)607-180878 [place] [address] 07-08-2022 09:58-0500 Diastolic blood pressure 80 mm[Hg] Dr. Shashank Tai Work Phone: 6(607)706-788278 [place] [address] 07-08-2022 09:58-0500 Heart rate 92 /min Dr. Shashank Tai Work Phone: 8(858)030-330078 [place] [address] 07-08-2022 09:58-0500 Respiratory rate 17 /min Dr. Shashank Tai Work Phone: 3(687)894-463278 [place] [address] 07-08-2022 09:58-0500 SaO2% (BldA) [Mass fraction] 100 % Dr. Shashank Tai Work Phone: 8(758)511-610778 [place] [address] 07-08-2022 09:58-0500 Systolic blood pressure 124 mm[Hg] Dr. Shashank Tai Work Phone: 0(273)325-772378 [place] [address] 06-14-2022 10:21-0500 Body mass index (BMI) [Ratio] 30.2 kg/m2 Dr. Shashank Tai Work Phone: [facility] 06-14-2022 10:21-0500 Body weight 87.[address] Shashank Tai Work Phone: 2(535)606-529278 [place] [address] 06-14-2022 10:21-0500 Diastolic blood pressure 73 mm[Hg] Dr. Shashank Tai Work Phone: 4(368)946-271378 [place] [address] 06-14-2022 10:21-0500 Systolic blood pressure 133 mm[Hg] Dr. Shashank Tai Work Phone: 8(933)727-419378 [place] [address] 06-12-2022 01:06-0500 Heart rate 68 /min Dr. Shashank Tai Work Phone: [facility] 06-12-2022 01:06-0500 Respiratory rate 15 /min Dr. Shashank Tai Work Phone: [facility] 06-12-2022 01:06-0500 SaO2% (BldA) [Mass fraction] 98 % Dr. Shashank Tai Work Phone: 8(766)688-203378 [place] [address] 06-11-2022 23:10-0500 Body mass index (BMI) [Ratio] 29 kg/m2 Dr. Shashank Tai Work Phone: 5(229)521-103758 [place] [address] 06-11-2022 23:10-0500 Body temperature 97.6 [degF] Dr. Shashank Tai Work Phone: 3(072)801-795158 [place] [address] 06-11-2022 23:10-0500 Body weight 83.[address] Shashank Tai Work Phone: 3(688)456-511758 [place] [address] 06-11-2022 23:10-0500 Diastolic blood pressure 68 mm[Hg] Dr. Shashank Tai Work Phone: 0(372)082-543058 [place] [address] 06-11-2022 23:10-0500 Systolic blood pressure 134 mm[Hg] Dr. Shashank Tai Work Phone: 4(651)967-899358 [place] [address] 05-08-2022 20:12-0500 Diastolic blood pressure 90 mm[Hg] Dr. Shashank Tai Work Phone: 7(827)097-222758 [place] [address] 05-08-2022 20:12-0500 Heart rate 75 /min Dr. Shashank Tai Work Phone: 0(142)774-901978 [place] [address] 05-08-2022 20:12-0500 Respiratory rate 16 /min Dr. Shashank Tai Work Phone: 6(798)331-239058 [place] [address] 05-08-2022 20:12-0500 SaO2% (BldA) [Mass fraction] 98 % Dr. Shashank Tai Work Phone: 7(838)423-585004 [address] 05-08-2022 20:12-0500 Systolic blood pressure 114 mm[Hg] Dr. Shashank Tai Work Phone: [facility] 05-08-2022 17:54-0500 Body height 170.[address] Shashank Tai Work Phone: [facility] Work Phone: 05-08-2022 17:54-0500 Body mass index (BMI) [Ratio] 30.2 kg/m2 Dr. Shashank Tai Work Phone: [facility] 05-08-2022 17:54-0500 Body temperature 96.7 [degF] Dr. Shashank Tai Work Phone: [facility] 05-08-2022 17:54-0500 Body weight 87.[address] Shashank Tai Work Phone: [facility] 05-07-2022 14:50-0500 Body mass index (BMI) [Ratio] 30.4 kg/m2 Dr. Shashank Tai Work Phone: 6(567)025-157378 [place] [address] 05-07-2022 14:50-0500 Body weight 88.[address] Shashank Tai Work Phone: [facility] 05-07-2022 14:50-0500 Diastolic blood pressure 70 mm[Hg] Dr. Shashank Tai Work Phone: [facility] 05-07-2022 14:50-0500 Systolic blood pressure 142 mm[Hg] Dr. Shashank Tai Work Phone: [facility] 04-23-2022 00:45-0500 Diastolic blood pressure 63 mm[Hg] Dr. Shashank Tai Work Phone: [facility] 04-23-2022 00:45-0500 Heart rate 69 /min Dr. Shashank Tai Work Phone: [facility] 04-23-2022 00:45-0500 Respiratory rate 18 /min Dr. Shashank Tai Work Phone: [facility] 04-23-2022 00:45-0500 SaO2% (BldA) [Mass fraction] 97 % Dr. Shashank Tai Work Phone: [facility] 04-23-2022 00:45-0500 Systolic blood pressure 113 mm[Hg] Dr. Shashank Tai Work Phone: [facility] 04-22-2022 21:32-0500 Body height 170.[address] Shashank Tai Work Phone: [facility] Work Phone: 04-22-2022 21:32-0500 Body mass index (BMI) [Ratio] 30.4 kg/m2 Dr. Shashank Tai Work Phone: [facility] 04-22-2022 21:32-0500 Body temperature 96.5 [degF] Dr. Shashank Tai Work Phone: [facility] 04-22-2022 21:32-0500 Body weight 87.[address] Shashank Tai Work Phone: [facility] 12-10-2021 12:50-0400 Diastolic blood pressure 66 mm[Hg] Merrill De Luna MD Work Phone: [facility] 12-10-2021 12:50-0400 Heart rate 66 /min Merrill De Luna MD Work Phone: [facility] 12-10-2021 12:50-0400 Systolic blood pressure 119 mm[Hg] Merrill De Luna MD Work Phone: [facility] 07-11-2020 13:15-0500 Body mass index (BMI) [Ratio] 28 kg/m2 Dr. Shashank Tai Work Phone: [facility] 07-11-2020 13:15-0500 Body temperature 97.6 [degF] Dr. Shashank Tai Work Phone: [facility] 07-11-2020 13:15-0500 Body weight 83.[address] Shashank Tai Work Phone: [facility] 07-11-2020 13:15-0500 Diastolic blood pressure 74 mm[Hg] Dr. Shashank Tai Work Phone: [facility] 07-11-2020 13:15-0500 Heart rate 78 /min Dr. Shashank Tai Work Phone: [facility] 07-11-2020 13:15-0500 Respiratory rate 14 /min Dr. Shashank Tai Work Phone: [facility] 07-11-2020 13:15-0500 SaO2% (BldA) [Mass fraction] 98 % Dr. Shashank Tai Work Phone: [facility] 07-11-2020 13:15-0500 Systolic blood pressure 111 mm[Hg] Dr. 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 Shashank Tai MD Work Phone: [facility] Work Phone: Start: 10-14-2024 End: 10-14-2024 Patient encounter procedure Lolis PEREZ -Laboratory Work Phone: Start: 10-14-2024 End: 10-14-2024 Patient encounter procedure Lolis PEREZ -[facility] Work Phone: Start: 10-14-2024 End: 10-14-[address] Shashank Tai MD Work Phone: [facility] Work Phone: Start: 10-14-2024 End: 10-14-2024 ambulatory Shashank [facility] [place] Facility:[facility] Start: 08-30-2024 ambulatory [facility] Facility:[facility] Start: 08-11-2024 End: 08-11-[address] Shashank Tai MD Work Phone: [facility] Work Phone: Start: 08-11-2024 End: 08-11-[address] Shashank Tai MD -Laboratory, Phy Office 3rd Flr Start: 08-11-2024 End: 08-11-[facility] Start: 07-26-2024 ambulatory Zach Larry Facility :[facility] Start: 07-26-2024 Non-patient / Non-visit Zach Larry DO -[facility] Start: 07-26-2024 End: 07-26-2024 Admission to same day surgery center Zach Larry DO -Endoscopy Work Phone: Start: 07-26-2024 End: 07-26-2024 ambulatory [facility] Facility:[facility] Start: 06-23-2024 End: 06-23-2024 Patient encounter procedure Rajni Headley NP-C -[facility] Work Phone: Start: 06-23-2024 End: 06-23-2024 ambulatory Shashank Tai Facility:[facility] Start: 06-15-[address] Deven David MD -[facility] Start: 06-15-2024 ambulatory [facility] Facility:[facility] Start: 06-06-2024 End: 06-06-2024 Patient encounter procedure Carlo Burnett NP-C -[facility] Work Phone: Start: 06-06-2024 End: 06-06-2024 ambulatory Carlo Burnett [employer] Facility:[facility] Start: 05-20-2024 End: 05-20-[address] Shashank Tai MD -Laboratory, Phy Office 3rd Flr Start: 05-20-2024 End: 05-20-2024 ambulatory Shashank Chi [place] Facility:[facility] Start: 05-10-2024 End: 05-10-2024 Patient encounter procedure Lolis PEREZ -[facility] Work Phone: Start: 05-10-2024 End: 05-10-2024 ambulatory Shashank Chi [place] Facility:[facility] Start: 04-26-2024 ambulatory Shashank Chi [place] Facility:[facility] Start: 04-08-2024 End: 04-08-2024 ambulatory Shashank Chi [place] Facility:[facility] Start: 04-02-2024 End: 04-02-2024 ambulatory Shashank Chi [place] Facility:[facility] Start: 04-01-2024 End: 04-01-2024 Emergency department patient visit Kyree Cmehne Facility:[facility] Start: 03-01-2024 End: 03-01-2024 ambulatory [facility] [place] Facility:[facility] Start: 02-20-2024 End: 02-20-2024 Emergency department patient visit Shashank Chi [place] Facility:[facility] Start: 01-14-2024 ambulatory Shashank Chi [place] Facility:[facility] Start: 01-14-2024 End: 01-14-2024 ambulatory Shashank Chi [place] Facility:[facility] Start: 10-24-2023 End: 10-25-[address] REFUGIO HUTTON MD Facility:[facility] Start: 10-24-2023 End: 10-24-[address] REFUGIO HUTTON MD [facility] Start: 08-25-2023 End: 08-25-[address] Shashank Tai Work Phone: [facility] Work Phone: Start: 08-25-2023 End: 08-25-[address] Shashank Tai Work Phone: [facility] Work Phone: Start: 08-18-2023 End: 08-18-[address] Shashank Tai Work Phone: [facility] Work Phone: Start: 08-18-2023 End: 08-18-[address] [facility]ash[facility] Tai [facility] 3rd Flr Start: 08-18-2023 End: 08-18-2023 Dr. Shashank Tai Work Phone: [facility], [facility] Office 3rd Flr Start: 08-15-2023 End: 08-15-[address] Shashank Tai Work Phone: [facility] Work Phone: Start: 08-15-2023 End: 08-15-[address] Shashank Tai Work Phone: [facility] Work Phone: Start: 08-15-2023 End: 08-15-2023 Dr. Shashank Tai Work Phone: [facility] Work Phone: Start: 07-25-2023 End: 07-25-2023 Emergency department patient visit Dr. Shashank Tai [facility] Start: 07-25-2023 End: 07-25-2023 Dr. Shashank Tai Work Phone: [facility]-Emergency Department Work Phone: Start: 07-11-2023 End: 07-11-[address] Shashank Tai Work Phone: [facility] Work Phone: Start: 07-11-2023 End: 07-11-[address] Shashank Tai Work Phone: [facility], [facility] Office 3rd Flr Start: 07-11-2023 End: 07-11-2023 Dr. Shashank Tai [facility] Start: 07-01-2023 End: 07-01-[address] Shashank Tai Work Phone: [facility] Work Phone: Start: 07-01-2023 End: 07-01-[address] Shashank Tai Work Phone: [facility], [facility] Work Phone: Start: 07-01-2023 End: 07-01-2023 Dr. Shashank Tai Work Phone: [facility], [facility] Work Phone: Start: 06-26-2023 End: 06-26-2023 Emergency department patient visit Dr. Shashank Tai [facility] Start: 06-26-2023 End: 06-26-2023 Dr. Shashank Tai Work Phone: [facility]-Emergency Department Work Phone: Start: 06-26-2023 End: 06-26-[address] Shashank Tai Work Phone: [facility] Work Phone: Start: 06-26-2023 End: 06-26-[address] Shashank Tai [facility] Start: 06-26-2023 End: 06-26-2023 Dr. Shashank Tai [facility] Start: 06-13-2023 End: 06-13-[address] Shashank Tai Work Phone: [facility] Work Phone: Start: 06-13-2023 End: 06-13-[address] Shashank Tai Work Phone: [facility] Office 3rd Flr Start: 06-13-2023 End: 06-13-2023 Dr. Shashank Tai Work Phone: [facility], y Office 3rd Flr Start: 06-10-2023 End: 06-10-2023 Emergency department patient visit Dr. Shashank Tai [facility] Start: 06-10-2023 End: 06-10-[address] Shashank Tai Work Phone: [facility] Work Phone: Start: 06-10-2023 End: 06-10-2023 Dr. Shashank Tai [facility] Start: 2023 End: 06-01-2023 Emergency department patient visit Dr. Shashank Tai [facility] Phone[facility] Start: 2023 End: 06-01-2023 Dr. Shashank Tai [facility] Start: 05-20-2023 End: 05-20-[address] Shashank Tai Work Phone: [facility] Work Phone: Start: 05-20-2023 End: 05-20-[address] Shashank Tai Work Phone: [facility], [facility] Office 3rd Flr Start: 05-20-2023 End: 05-20-2023 Dr. Shashank Tai Work Phone: [facility], [facility] Office 3rd Flr Start: 05-17-2023 Non-patient / Non-visit Dr. Shashank Tai Work Phone: [facility] Work Phone: Start: 05-17-2023 Dr. Shashank Tai Work Phone: [facility] Work Phone: Start: 05-16-2023 Non-patient / Non-visit Dr. Shashank Tai Work Phone: [facility] Work Phone: Start: 05-16-2023 Dr. Shashank Tai Work Phone: [facility] Work Phone: Start: 05-15-2023 End: 05-17-2023 Evaluation and management of inpatient Dr. Shashank Tai Work Phone: [facility] Work Phone: Start: 05-15-2023 End: 05-17-2023 Dr. Shashank Tai Work Phone: [facility] Work Phone: Start: 05-12-2023 End: 05-12-[address] Shashank Tai Work Phone: [facility] Work Phone: Start: 05-12-2023 End: 05-12-[address] Shashank Tai Work Phone: [facility]-Pulmonary Services/Neurology Work Phone: Start: 05-12-2023 End: 05-12-2023 Dr. Shashank Tai Work Phone: [facility]-Pulmonary Services/Neurology Work Phone: Start: 04-25-2023 End: 04-25-[address] Shashank Tai Work Phone: [facility] Work Phone: Start: 04-25-2023 End: 04-25-[address] Shashank Tai [facility] Start: 04-25-[address] Shashank figueroa Work Phone: [facility] Start: 04-25-2023 End: 04-25-2023 Dr. Shashank Tai Work Phone: [facility] Oncology Start: 04-01-2023 End: 04-01-[address] Shashank Tai Work Phone: [facility] Work Phone: Start: 04-01-2023 End: 04-01-[address] Shashank Tai [facility] Start: 03-04-2023 End: 03-04-[address] Shashank Tai Work Phone: [facility] Work Phone: Start: 02-19-2023 End: 02-19-[address] Shashank Tai Work Phone: [facility] Office 3rd Flr Start: 02-10-2023 Non-patient / Non-visit Dr[facility] Start: 02-08-2023 End: 02-08-2023 Emergency department patient visit Dr. Shashank Tai Work Phone: [facility]-Emergency Department Work Phone: Start: 01-29-2023 End: 01-29-[address] Shashank Tai Work Phone: [facility] Work Phone: Start: 01-24-2023 End: 01-24-[address] Shashank Tai Work Phone: [facility] Work Phone: Start: 01-24-2023 End: 01-24-[address] Shashank Tai Work Phone: [facility]-Laboratory, OP Pavilion Start: 01-09-2023 Telephone encounter Merrill izaguirre MD Work Phone: Vascular Surg Dept Comment on above: Patient Question Start: 12-30-[address] Shashank figueroa Work Phone: [facility] Start: 12-06-[address] Shashank figueroa Work Phone: [facility] Start: 12-04-2022 End: 12-04-[address] Shashank Tai Work Phone: [facility] Work Phone: Start: 12-04-2022 End: 12-04-[address] Shashank Tai Work Phone: [facility]-Outpatient Breast Imaging Work Phone: Start: 11-22-2022 End: 11-22-[address] [facility]ashank [facility] Start: 10-09-2022 End: 10-09-[address] Shashank Tai Work Phone: [facility] Work Phone: Start: 09-23-2022 End: 09-23-[address] Shashank Tai Work Phone: [facility] Work Phone: Start: 09-23-2022 End: 09-23-[address] Shashank Tai Work Phone: [facility]-Laboratory, Phy Office 3rd Flr Start: 08-27-2022 End: 08-27-[address] Shashank Tai Work Phone: [facility] Work Phone: Start: 08-27-2022 End: 08-27-[address] Shashank Tai [facility] Start: 08-23-2022 End: 08-23-[address] Shashank Tai Work Phone: [facility] Work Phone: Start: 08-23-2022 End: 08-23-[address] Shashank Tai [facility] Start: 08-22-2022 End: 08-22-[address] Shashank Tai Work Phone[facility] Office 3rd Okr Start: 07-31-2022 End: 07-31-2022 Emergency department patient visit Dr. Shashank Tai Work Phone: [facility]-Emergency Department Start: 07-30-2022 End: 07-30-2022 Emergency department patient visit Dr. Shashank Tai Work Phone: [facility]-Emergency Department Start: 07-23-2022 End: 07-23-[address] Shashank Tai Work Phone: [facility] Start: 07-09-2022 Non-patient / Non-visit Dr. Shashank Tai Work Phone: [facility] Start: 07-09-2022 End: 07-09-2022 Admission to same day surgery center Dr. Shashank Tai [facility] Phone[facility] Start: 07-09-2022 End: 07-09-[address] Shashank Tai Work Phone: [facility] Work Phone: Start: 07-08-2022 End: 07-08-[address] Shashank Tai Work Phone: [facility] Start: 07-04-2022 End: 07-04-[address] Shashank Tai Work Phone: [facility] Work Phone: Start: 07-04-2022 End: 07-04-[address] Shashank Tai Work Phone: [facility] Start: 07-01-[address] Shashank figueroa Work Phone: [facility] Start: 06-14-2022 End: 06-14-[address] Shashank Tai Work Phone: [facility] Start: 06-11-2022 End: 06-12-2022 Emergency department patient visit Dr. Shashank Tai Work Phone: [facility]-Emergency Department Start: 05-21-2022 End: 05-21-[address] Shashank Tai Work Phone: [facility]-Laboratory, Phy Office [address] [place] [address] Start: 05-08-2022 End: 05-08-2022 Emergency department patient visit Dr. Shashank Tai Work Phone: [facility]-Emergency Department Start: 05-07-2022 End: 05-07-[address] Shashank Tai Work Phone: [facility] Work Phone: Start: 05-07-2022 End: 05-07-[address] Shashank Tai [facility] Start: 05-07-2022 End: 05-07-[address] Shashank Tai Work Phone: [facility] Start: 04-23-2022 End: 04-23-[address] Shashank Tai Work Phone: [facility] Work Phone: Start: 04-23-2022 End: 04-23-[address] Shashank Tai Work Phone: [facility]-Laboratory, Phy Office 3rd Flr Start: 04-22-2022 End: 04-23-2022 Emergency department patient visit Dr. Shashank Tai Work Phone: [facility]-Emergency Department Start: 02-13-2022 End: 02-13-[address] Shashank Tai Work Phone: [facility] Work Phone: Start: 02-13-2022 End: 02-13-[address] Shashank Tai Work Phone: [facility] Start: 01-29-2022 Non-patient / Non-visit Dr. Shashank Tai Work Phone: [facility] Start: 01-28-2022 End: 01-28-[address] Shashank Tai Work Phone: [facility] Work Phone: Start: 01-28-2022 End: 01-28-[address] Shashank Tai Work Phone: [facility]-Pulmonary Services/Neurology Start: 01-28-2022 End: 01-28-[address] Shashank Tai Work Phone: [facility] Work Phone: Start: 01-28-2022 End: 01-28-[address] 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 Start: 12-18-2018 End: 12-18-2018 Emergency department patient visit VINOD Martinez C[facility] Start: 12-18-2018 Patient encounter procedure [facility] Start: 12-08-2018 End: 12-08-2018 Patient encounter procedure SUHA LUDWIG [facility] Start: 12-08-2018 End: 12-08-2018 Patient encounter procedure [facility] Start: 05-11-2018 End: 05-11-2018 Patient encounter procedure [facility] Start: 02-03-2018 Encounter for genera l adult medical examination with abnormal findings SUHA [facility] Start: 02-03-2018 End: 02-03-2018 Patient encounter procedure SU[facility] Procedures Date Procedure Procedure Detail Performing Clinician Start: 11-10-2024 Ultrasound elastogra phy of liver Dr. Shashank Tai MD Work Phone: Start: 10-14-2024 Hepatitis A virus an tibody, total measurement Dr. Shashank Tai MD Work Phone: Comment on above: Comment: The HAV tot al antibody assay detects both IgG andIgM but does not differentiate between them. A negativeresult suggests susceptibility to infection. A positiveresult could be due to vaccination, previously resolvedinfection or active infection. Testing for HAV IgM shouldbe performed if active HAV infection is suspected. Labcorpoffers profiles that will automatically reflex positive HAVtotal antibody results to IgM (e.g., panel #[id number] HAVAntibody w/ Rfx).Performed at: [address] [id number] Director: Refugio Rose PhD, Phone: [phone] Start: 10-14-2024 Hepatitis C antibody measurement Dr. Shashank Tai MD Work Phone: Comment on above: Reactive: Presumptiv e evidence of antibodies to HCV. Follow CDC recommendations for supplemental testing.Non-Reactive: Antibodies to HCV were not detected; does not exclude the possibility of exposure to HCVReactive Results are presumptive evidence of antibodies to HCV. Follow CDC recommendations for supplemental testing.Order confirmation testing: HCV Quant by PCR testing - HCVPCR #[id number] Non Reactive: < 0.8 Equivocal: >/= 0.8 to < 1.0 Reactive: >/= 1.0The CDC requires that a reactive/equivocal HCV antibody result be sent out for confirmation. HCV Quant by PCR testing. Start: 08-11-2024 Urnls dip stick/tabl et reagent auto microscopy Dr. Shashank Tai MD Work Phone: Start: 08-25-2023 Ultrasound elastogra phy of liver Dr. Shashank Tai Work Phone: Start: 08-15-2023 Radionuclide gastric emptying study Dr. Shashank Tai Work Phone: Start: 07-25-2023 SARS-CoV-2, Influenz a & RSV (PCR) Dr. Shashank Tai Work Phone: Start: 07-25-2023 Dr. Shashank kelly Work Phone: Start: 07-01-[address] Shashank Tai Work Phone: Start: 06-26-2023 CT of thorax, abdome n and pelvis with contrast Dr. Shashank Tai Work Phone: Start: 06-10-2023 Computed tomography of abdomen and pelvis with intravenous contrast Dr. Shashank Tai Work Phone: Start: 06-10-2023 Clostridium difficil e detection Dr. Shashank Tai Work Phone: Start: 2023 Plain chest X-ray Dr. Johanna Tai Work Phone: Start: 2023 SARS-CoV-2, Influenz a & RSV (PCR) Dr. Shashank Tai Work Phone: Start: 2023 Dr. Shashank kelly Work Phone: Start: 05-15-2023 Clostridium difficil e detection Dr. Shashank Tai Work Phone: Start: 05-15-2023 Coronavirus COVID-[address] Shashank Tai Work Phone: Start: 05-15-[address] Shashank Tai Work Phone: Start: 05-15-2023 Legionella pneumophi la antigen assay Dr. Shashank Tai Work Phone: Start: 05-15-[address] Shashank Tai Work Phone: Start: 05-15-2023 SARS-CoV-2 & FLU Ant igen (Rapid) Dr. Shashank Tai Work Phone: Start: 05-15-2023 Streptococcus pneumo niae Antigen (M Dr. Shashank Tai Work Phone: Start: 05-15-2023 Dr. Shashank kelly Work Phone: Start: 05-15-2023 CT of chest, abdomen and pelvis without contrast Dr. Shashank Tai Work Phone: Start: 05-15-2023 Plain chest X-ray Dr. Johanna Tai Work Phone: Start: 05-12-2023 Coronavirus COVID-[address] Shashank Tai Work Phone: Start: 05-12-2023 Influenza Types A,B Direct FA (AYUSH) Dr. Shashank Tai Work Phone: Start: 05-12-2023 Respiratory syncytia l virus antigen assay Dr. Shashank Tai Work Phone: Start: 05-12-2023 Dr. Shashank kelly Work Phone: Start: 02-08-2023 Plain x-ray of elbow Dr Niranjan Tai Work Phone: Start: 02-08-2023 Investigation of tra nsfusion reaction Dr. Shashank Tai Work Phone: Start: 02-08-2023 Microbial culture, routine Dr. Shashank Tai Work Phone: Start: 12-04-2022 Screening mammography D dorcas Tai Work Phone: Start: 07-09-2022 Hysteroscopy with en dometrial ablation Dr. Shashank Tai Work Phone: Start: 07-04-2022 CT of abdomen and pe lvis without contrast Dr. Shashank Tai Work Phone: Start: 06-11-[address] Shashank Tai Work Phone: Start: 04-22-[address] Shashank Tai Work Phone: Start: 02-13-2022 CT angiography of ch est with contrast Dr. Shashank Tai Work Phone: Start: 11-21-2020 Measurement of occul t blood in stool specimen using immunoassay Dr. Shashank Tai Work Phone: Start: 04-10-2020 Stool Occult Blood (AYUSH) Dr. Shashank Tai MD Work Phone: Start: 04-05-2019 Mammography Merrill De Luna MD Work Phone: SARS-CoV-2 & FLU Ant igen (Rapid) Dr. Shashank Tai Work Phone: SARS-CoV-2 & FLU Ant igen (Rapid) Dr. Shashank Tai Work Phone: Urine culture Dr. Shashank Tai Work Phone: Plan of Treatment Date Care Activity Detail Author Start: 01-31-2025 Influenza vaccination Influenz a Vaccine (Season Ended) [facility] Start: 12-20-2024 End: 12-20-2024 Patient encounter procedure [facility] Dept Comment on above: Embolism and thrombo sis of artery of lower extremity Start: 11-29-2024 ambulatory Ambulatory Facility:[facility] Start: 07-26-2024 Colonoscopy flx dx w /collj spec when pfrmd DIAGNOSTIC COLONOSCOPY [facility] Start: 07-26-2024 Egd transoral biopsy single/multiple EGD BIOPSY SINGLE/MULTIPLE [facility] Start: 07-26-2024 Patient discharge [facility] Start: 04-05-2024 HPV TESTING HPV TESTING [facility] Start: 04-05-2024 PAP TESTING PAP TESTING [facility] Start: 04-05-2024 Screening for malign ant neoplasm of cervix Cervical Cancer Screening [facility] Start: 02-01-2024 Covid-19 Vaccine ( season) Covid-19 Vaccine ( season) [facility] Start: 02-01-2024 Covid-19 Vaccine ( season) Covid-19 Vaccine ( season) [facility] Start: 07-25-2023 [facility] Start: 07-01-2023 Ultrasonography of abdomen Abdomen L imited [facility] Start: 07-01-2023 US Abdomen limited [facility] Start: 06-26-2023 [facility] Start: 06-10-2023 [facility] Start: 06-10-2023 Enteric precautions [facility] Start: 06-01-2023 [facility] Start: 2023 [facility] Start: 05-23-2023 Blood chemistry [facility] Start: 05-22-2023 Blood chemistry [facility] Start: 05-21-2023 Blood chemistry [facility] Start: 05-20-2023 Blood chemistry [facility] Start: 05-19-2023 Blood chemistry [facility] Start: 05-18-2023 Blood chemistry [facility] Start: 05-17-2023 Patient discharge [facility] Start: 05-17-2023 Blood chemistry [facility] Start: 05-15-2023 Enteric Bacteriology Enteric Bacteri ology [facility] Start: 05-15-2023 Prothrombin time [facility] Start: 05-15-2023 [facility] Start: 05-15-2023 Following clinical p athway protocol [facility] Start: 05-15-2023 Assessment of risk o f venous thromboembolism [facility] Start: 05-15-2023 Bacteria identified in Sputum by Culture [facility] Start: 05-15-2023 Bacterial nucleic ac id assay [facility] Start: 05-15-2023 Care regimes management [facility] Start: 05-15-2023 Continuous positive airway pressure ventilation treatment [facility] Start: 05-15-2023 Incentive spirometry [facility] Start: 05-15-2023 Inhalation therapy procedure [facility] Start: 05-15-2023 Insertion of cathete r into peripheral vein [facility] Start: 05-15-2023 Introduction of urin jeffery catheter [facility] Start: 05-15-2023 Measuring intake and output [facility] Start: 05-15-2023 Methicillin resistan t Staphylococcus aureus screening test [facility] Start: 05-15-2023 Notification of physician [facility] Start: 05-15-2023 Oxygen therapy [facility] Start: 05-15-2023 Providing care accor ding to standard [facility] Start: 05-15-2023 Provision of activit y privileges [facility] Start: 05-15-2023 Referral to service [facility] Start: 05-15-2023 Taking nasal swab [facility] Start: 05-15-2023 Tobacco use cessatio n education [facility] Start: 05-15-2023 [facility] Start: 05-15-2023 Gastrointestinal pat hogens panel - Stool by RACHEL with probe detection [facility] Start: 05-15-2023 Legionella pneumophi la Ag [Presence] in Urine [facility] Start: 05-15-2023 Respiratory pathogen s DNA and RNA panel - Respiratory specimen by RACHEL with probe detection [facility] Start: 05-15-2023 SARS-CoV-2 [facility] Start: 05-15-2023 Streptococcus pneumo niae antigen assay [facility] Start: 05-15-2023 Verification routine [facility] Start: 05-15-2023 Admission procedure [facility] Start: 05-15-2023 Enteric precautions [facility] Start: 05-15-2023 Consultation [facility] Start: 02-08-2023 [facility] Start: 01-31-2023 Influenza vaccination INFLUENZA (#1) [facility] Start: 12-10-2022 BP CONTROLLED (<130/80) BP CONTROLLE D (<130/80) [facility] Start: 07-09-2022 Anes hysteroscopy&/hysterosalpi ngography w/bx ANESTH HYSTEROSCOPE/GRAPH [facility] Start: 07-09-2022 Hysteroscopy endomet rial ablation HYSTEROSCOPY ABLATION [facility] Start: 07-09-2022 Ambulation without limitation [facility] Start: 07-09-2022 Medical regimen orde rs management [facility] Start: 07-09-2022 Medication education [facility] Start: 07-09-2022 Patient discharge [facility] Start: 07-09-2022 Procedure discontinued [facility] Start: 07-09-2022 Taking patient vital signs [facility] Start: 07-09-2022 Vital signs measurements [facility] Start: 07-09-2022 [facility] Start: 07-09-2022 Admission procedure [facility] Start: 01-31-2022 Influenza vaccination C [facility] Start: 09-18-2021 BP CONTROLLED (<130/80) BP CONTROLLE D (<130/80) [facility] Start: 11-28-2020 3 comp foot exam completed DIABETIC FOOT EXAM [facility] Start: 11-28-2020 Diabetic foot examination Diabetic F oot Exam [facility] Start: 2020 SHINGRIX VACCINE (1 of 2) JIMENEZ GRIX VACCINE (1 of 2) [facility] Start: 04-05-2020 Mammography MAMMOGRAM [facility] Start: 04-05-2020 Screening for malign ant neoplasm of breast Mammogram Screening [facility] Start: 04-05-2020 Following clinical p athway protocol [facility] Start: 03-02-2020 Hemoglobin A1c measurement HbA1C [facility] Start: 03-02-2020 Hemoglobin A1c/Hemoglobin.total in Blood HBA1C [facility] Start: 2015 COLOGUARD (FIT-DNA) COLOGUARD (FIT-D NA) [facility] Start: 2015 Colonoscopy COLONOSCOPY [facility] Start: 2015 COLORECTAL CANCER SCREENING COLORECTAL CANCER SCREENING [facility] Start: [address] COLONOGRAPHY [facility] Start: 2015 FECAL OCCULT BLOOD FECAL OCCULT BLOO D [facility] Start: 2015 Screening for malign ant neoplasm of colon [facility] Start: 2015 SIGMOIDOSCOPY SIGMOIDOSCOPY [facility] Start: 1989 Pneumococcal Vaccine : 50+ (1 of 2 - PCV) Pneumococcal Vaccine: 50+ (1 of 2 - PCV) [facility] Start: 1989 Urine microalbumin profile [facility] Start: 1988 ANNUAL PCP TEAM CAR DRIVER JESE DISEASE VISIT ANNUAL PCP TEAM CHRONIC DISEASE VISIT [facility] Start: 1988 BP CONTROLLED (<130/80) BP CONTROLLE D (<130/80) [facility] Start: 1988 Hepatitis B surface antibody level LDL CHOLESTEROL [facility] Start: 1988 HIV SCREENING HIV SCREENING [facility] Start: 1988 HIV screening HIV Screening [facility] Start: 1986 ONE PNEUMOVAX PRIOR TO AGE 65 ONE PNEUMOVAX PRIOR TO AGE 65 [facility] Start: 1980 Glaucoma screening Dilated Retinal E xam [facility] Start: 1980 Hepatitis B screening URINE ALBUMIN:CREATININE RATIO [facility] Start: 1980 Hepatitis C antibody , confirmatory test DILATED RETINAL EXAM [facility] Start: 1976 PNEUMOCOCCAL (1 - PCV) PNEUMOCOCCAL (1 - PCV) [facility] Start: 1975 COVID-19 VACCINE (1) COVID-19 VACCIN E (1) [facility] Start: 1970 COVID-19 VACCINE (#1) COVID-19 VACCI NE (#1) [facility] Alanine aminotransfe rase [Enzymatic activity/volume] in Serum or Plasma [facility] Albumin [Mass/volume ] in Serum or Plasma [facility] Alkaline phosphatase [Enzymatic activity/volume] in Serum or Plasma [facility] Anion gap measurement [facility] [facility] Anion gap measurement [facility] [facility] Anion gap measurement [place] [facility] Anion gap measurement [place] [facility] Anion gap measurement [place] [facility] Anion gap measurement [place] [facility] Anion gap measurement [place] [facility] Anion gap measurement [place] [facility] Aspartate aminotrans ferase [Enzymatic activity/volume] in Serum or Plasma [facility] Bilirubin, total measurement [facility] BUN/Creatinine ratio [facility] BUN/Creatinine ratio [facility] BUN/Creatinine ratio [facility] BUN/Creatinine ratio [facility] BUN/Creatinine ratio [facility] BUN/Creatinine ratio [facility] BUN/Creatinine ratio [facility] BUN/Creatinine ratio [facility] Calcium [Mass/volume ] in Serum or Plasma [facility] Calcium [Mass/volume ] in Serum or Plasma [facility] Calcium [Mass/volume ] in Serum or Plasma [facility] Calcium [Mass/volume ] in Serum or Plasma [facility] Calcium [Mass/volume ] in Serum or Plasma [facility] Calcium [Mass/volume ] in Serum or Plasma [facility] Calcium [Mass/volume ] in Serum or Plasma [facility] Calcium [Mass/volume ] in Serum or Plasma [facility] Carbon dioxide, tota l [Moles/volume] in Serum or Plasma [facility] Carbon dioxide, tota l [Moles/volume] in Serum or Plasma [facility] Carbon dioxide, tota l [Moles/volume] in Serum or Plasma [facility] Carbon dioxide, tota l [Moles/volume] in Serum or Plasma [facility] Carbon dioxide, tota l [Moles/volume] in Serum or Plasma [facility] Carbon dioxide, tota l [Moles/volume] in Serum or Plasma [facility] Carbon dioxide, tota l [Moles/volume] in Serum or Plasma [facility] Carbon dioxide, tota l [Moles/volume] in Serum or Plasma [facility] CBC W Auto Different ial panel - Blood [facility] CBC W Auto Different ial panel - Blood [facility] Chloride [Moles/volu me] in Serum or Plasma [facility] Chloride [Moles/volu me] in Serum or Plasma [facility] Chloride [Moles/volu me] in Serum or Plasma [facility] Chloride [Moles/volu me] in Serum or Plasma [facility] Chloride [Moles/volu me] in Serum or Plasma [facility] Chloride [Moles/volu me] in Serum or Plasma [facility] Chloride [Moles/volu me] in Serum or Plasma [facility] Chloride [Moles/volu me] in Serum or Plasma [facility] Clostridioides diffi cile DNA [Presence] in Unspecified specimen by RACHEL with probe detection [facility] Creatinine [Moles/vo lume] in Serum or Plasma [facility] Creatinine [Moles/vo lume] in Serum or Plasma [facility] Creatinine [Moles/vo lume] in Serum or Plasma [facility] Creatinine [Moles/vo lume] in Serum or Plasma [facility] Creatinine [Moles/vo lume] in Serum or Plasma [facility] Creatinine [Moles/vo lume] in Serum or Plasma [facility] Creatinine [Moles/vo lume] in Serum or Plasma [facility] Creatinine [Moles/vo lume] in Serum or Plasma [facility] Ferritin [Mass/volum e] in Serum or Plasma [facility] Ferritin [Mass/volum e] in Serum or Plasma [facility] Folate [Mass/volume] in Serum or Plasma [facility] Gastrointestinal pat hogens panel - Stool by RACHEL with probe detection [facility] Glucose [Mass/volume ] in Serum or Plasma [facility] Glucose [Mass/volume ] in Serum or Plasma [facility] Glucose [Mass/volume ] in Serum or Plasma [facility] Glucose [Mass/volume ] in Serum or Plasma [facility] Glucose [Mass/volume ] in Serum or Plasma [facility] Glucose [Mass/volume ] in Serum or Plasma [facility] Glucose [Mass/volume ] in Serum or Plasma [facility] Glucose [Mass/volume ] in Serum or Plasma [facility] Hematocrit [Volume Fraction] of Blood [facility] Hematocrit [Volume Fraction] of Blood [facility] Hematocrit [Volume Fraction] of Blood [facility] Hematocrit [Volume Fraction] of Blood [facility] Hematocrit [Volume Fraction] of Blood [facility] Hematocrit [Volume Fraction] of Blood [facility] Hematocrit [Volume Fraction] of Blood [facility] Hematocrit [Volume Fraction] of Blood [facility] Hemoglobin [Mass/vol ume] in Blood [facility] Hemoglobin [Mass/vol ume] in Blood [facility] Hemoglobin [Mass/vol ume] in Blood [facility] Hemoglobin [Mass/vol ume] in Blood [facility] Hemoglobin [Mass/vol ume] in Blood [facility] Hemoglobin [Mass/vol ume] in Blood [facility] Hemoglobin [Mass/vol ume] in Blood [facility] Hemoglobin [Mass/vol ume] in Blood [facility] Hepatitis A virus Ab [Presence] in Serum [facility] Hepatitis B virus co re Ab [Presence] in Serum [facility] Hepatitis B virus franklin rface Ab [Presence] in Serum [facility] Hepatitis C antibody measurement [facility] INR in Blood by Coagulation assay [facility] Iron and Iron bindin g capacity panel - Serum or Plasma [facility] Iron and Iron bindin g capacity panel - Serum or Plasma [facility] Lactate dehydrogenas e measurement [facility] Lactate dehydrogenas e measurement [facility] Lactoferrin [Presenc e] in Stool by Immunoassay [facility] Leukocytes [#/volume ] in Blood [facility] Leukocytes [#/volume ] in Blood [facility] Leukocytes [#/volume ] in Blood [facility] Leukocytes [#/volume ] in Blood [facility] Leukocytes [#/volume ] in Blood [facility] Leukocytes [#/volume ] in Blood [facility] Leukocytes [#/volume ] in Blood [facility] Leukocytes [#/volume ] in Blood [facility] Mean corpuscular hemoglobin concentration determination [facility] Mean corpuscular hemoglobin concentration determination [facility] Mean corpuscular hemoglobin concentration determination [facility] Mean corpuscular hemoglobin concentration determination [facility] Mean corpuscular hemoglobin concentration determination [facility] Mean corpuscular hemoglobin concentration determination [facility] Mean corpuscular hemoglobin concentration determination [facility] Mean corpuscular hemoglobin concentration determination [facility] Mean corpuscular hemoglobin determination [facility] Mean corpuscular hemoglobin determination [facility] Mean corpuscular hemoglobin determination [facility] Mean corpuscular hemoglobin determination [facility] Mean corpuscular hemoglobin determination [facility] Mean corpuscular hemoglobin determination [facility] Mean corpuscular hemoglobin determination [facility] Mean corpuscular hemoglobin determination [facility] Measurement of renal function [facility] Measurement of renal function [facility] Measurement of renal function [facility] Measurement of renal function [facility] Measurement of renal function [facility] Measurement of renal function [facility] Measurement of renal function [facility] Measurement of renal function [facility] Neutrophil count [facility] Neutrophil count [facility] Neutrophil count [facility] Neutrophil count [facility] Neutrophil count [facility] Neutrophil count [facility] Neutrophil count [facility] Neutrophil count [facility] Neutrophil percent differential count [facility] Neutrophil percent differential count [facility] Neutrophil percent differential count [facility] Neutrophil percent differential count [facility] Neutrophil percent differential count [facility] Neutrophil percent differential count [facility] Neutrophil percent differential count [facility] Neutrophil percent differential count [facility] Patient Education [facility] Work Phone: Patient referral [facility] Work Phone: Platelets [#/volume] in Blood [facility] Platelets [#/volume] in Blood [facility] Platelets [#/volume] in Blood [facility] Platelets [#/volume] in Blood [facility] Platelets [#/volume] in Blood [facility] Platelets [#/volume] in Blood [facility] Platelets [#/volume] in Blood [facility] Platelets [#/volume] in Blood [facility] Potassium [Moles/vol ume] in Serum or Plasma [facility] Potassium [Moles/vol ume] in Serum or Plasma [facility] Potassium [Moles/vol ume] in Serum or Plasma [facility] Potassium [Moles/vol ume] in Serum or Plasma [facility] Potassium [Moles/vol ume] in Serum or Plasma [facility] Potassium [Moles/vol ume] in Serum or Plasma [facility] Potassium [Moles/vol ume] in Serum or Plasma [facility] Potassium [Moles/vol ume] in Serum or Plasma [facility] End: 08-31-2022 PVR ANK/[place]/TOE [facility] PVR ANK/[place]/TOE [facility] Vascular Lab Routine Aortic mural thrombus (HCC) 1 Occurrences starting 08/31/2021 until 08/31/2022 [facility] Work Phone: Comment on above: 1 Occurrences starti ng 08/31/2021 until 08/31/2022 Red blood cell count [facility] Red blood cell count [facility] Red blood cell count [facility] Red blood cell count [facility] Red blood cell count [facility] Red blood cell count [facility] Red blood cell count [facility] Red blood cell count [facility] Red cell distributio n width determination [facility] Red cell distributio n width determination [facility] Red cell distributio n width determination [facility] Red cell distributio n width determination [facility] Red cell distributio n width determination [facility] Red cell distributio n width determination [facility] Red cell distributio n width determination [facility] Red cell distributio n width determination [facility] Reticulocyte count [facility] Sodium [Moles/volume ] in Serum or Plasma [facility] Sodium [Moles/volume ] in Serum or Plasma [facility] Sodium [Moles/volume ] in Serum or Plasma [facility] Sodium [Moles/volume ] in Serum or Plasma [facility] Sodium [Moles/volume ] in Serum or Plasma [facility] Sodium [Moles/volume ] in Serum or Plasma [facility] Sodium [Moles/volume ] in Serum or Plasma [facility] Sodium [Moles/volume ] in Serum or Plasma [facility] Total protein measurement [facility] Ultrasound elastography [facility] Urea nitrogen [Mass/volume] in Serum or Plasma [facility] Urea nitrogen [Mass/volume] in Serum or Plasma [facility] Urea nitrogen [Mass/volume] in Serum or Plasma [facility] Urea nitrogen [Mass/volume] in Serum or Plasma [facility] Urea nitrogen [Mass/volume] in Serum or Plasma [facility] Urea nitrogen [Mass/volume] in Serum or Plasma [facility] Urea nitrogen [Mass/volume] in Serum or Plasma [facility] Urea nitrogen [Mass/volume] in Serum or Plasma [facility] End: 08-31-2022 US ABD AORTA COMPLETE V[facility] US ABD AORTA COMPLETE [facility] Vascular Lab Routine Aortic mural thrombus (HCC) 1 Occurrences starting 08/31/2021 until 08/31/2022 [facility] Work Phone: Comment on above: 1 Occurrences starti ng 08/31/2021 until 08/31/2022 US Abdomen limited [facility] End: 11-10-2025 US Abdominal Aorta US ABD AORTA COMPLETE [facility] Vascular Lab Routine 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 Occurrences starting 11/10/2024 until 11/10/2025 [facility] Comment on above: 1 Occurrences starti ng 11/10/2024 until 11/10/2025 End: 08-31-2022 US FEMORAL ARTERY [facility] US FEMORAL ARTERY [facility] Vascular Lab Routine Aortic mural thrombus (HCC) 1 Occurrences starting 08/31/2021 until 08/31/2022 [facility] Work Phone: Comment on above: 1 Occurrences starti ng 08/31/2021 until 08/31/2022 End: 08-31-2022 US LEG ARTERIAL PERIPH [facility] US LEG ARTERIAL PERIPH [facility] Vascular Lab Routine Aortic mural thrombus (HCC) 1 Occurrences starting 08/31/2021 until 08/31/2022 [facility] Work Phone: Comment on above: 1 Occurrences starti ng 08/31/2021 until 08/31/2022 End: 11-10-2025 US Lower extremity artery US LEG ARTERIAL PERIPH [facility] Vascular Lab Routine 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 Occurrences starting 11/10/2024 until 11/10/2025 [facility] Work Phone: Comment on above: 1 Occurrences starti ng 11/10/2024 until 11/10/2025 End: 11-10-2025 US Lower extremity artery - bilateral PVR ANK/[place]/TOE [facility] Vascular Lab Routine 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 Immunizations Immunization Date Immunization Notes Care Provider Fa [facility] 03-02-2023 influenza, injectabl e, quadrivalent, preservative free Dr. Shashank Tai Work Phone: [facility] 03-02-2023 influenza virus vaccine, unspecified formulation Merrill De Luna MD Work Phone: [facility] 09-01-2019 Covid (Moderna) Dr. Shashank Tai Work Phone: [facility] 03-16-2019 Influenza virus vaccine [facility] Payers Date Payer Category Payer Self-pay [id number] 2021 Blue Cross Blue [facility] Subscriber Plan / Payer (Effective 2021-Present) Name: Rogerio Friend Relation to Subscriber: Self Name: Rogerio Friend Payer ID: [id number] (NAIC) Type: PPO Address: [facility] [address] [place] [id number] 2021 Unknown [id number] 2021 Unknown [employer] BLUE ACCE SS PPO [id number] 2021-Present [phone] [address] [place] [address] PPO [id number] 2020 Unknown [employer] PREF ERRED NETWORK VLAD[employer] HE[employer] PREFERRED [id number] 2020-Present [phone] [address] [address] [place] [address] Indemnity [id number] [id number] 2020 Unknown [id number] 2013 Unknown [id number] 1970 Unknown [id number] 2.16.840.1.593875.3.579. 2.651 1970 Unknown [id number] 2.16.840.1.411546.3.579. 2.651 1970 Unknown [id number] 2.16.840.1.914096.3.579. 2.651 1970 Unknown [id number] 2.16.840.1.343057.3.579. 2.651 1970 Unknown [id number] 2.16.840.1.990933.3.579. 2.651 1970 Unknown [id number] 2.16.840.1.011116.3.579. 2.651 1970 Unknown [id number] 2.16.840.1.643806.3.579. 2.651 1970 Unknown [id number] 2.16.840.1.369571.3.579. 2.651 1970 Unknown [id number] 2.16.840.1.000886.3.579. 2.594 1970 Unknown [id number] 2.16.840.1.135729.3.579. 2.627 Unknown [id number] 2.840.1.346465.3.579. 2.462 Unknown [id number] 2.16.840.1.482918.3.579. 2.462 Unknown [id number] 2.16.840.1.507724.3.579. 2.462 Unknown [id number] 2.840.1.196013.3.579. 2.462 Unknown [id number] 2.840.1.154334.3.579. 2.462 Unknown [id number] 2.840.1.402355.3.579. 2.462 Unknown [id number] 2.840.1.700983.3.579. 2.462 Unknown [id number] 2.840.1.474960.3.579. 2.462 Unknown [id number] 2.840.1.796273.3.579. 2.462 Unknown [id number] 2.840.1.084918.3.579. 2.462 Unknown [id number] 2.840.1.174140.3.579. 2.462 Unknown [id number] 2.840.1.867703.3.579. 2.462 Unknown [id number] 2.840.1.768794.3.579. 2.462 Unknown [id number] 2.840.1.036349.3.579. 2.462 Unknown [id number] 2..840.1.127199.3.579. 2.462 Unknown [id number] 2..840.1.995437.3.579. 2.462 Unknown [id number] 2.16840.1.260765.3.579. 2.462 Unknown [id number] 2.840.1.713920.3.579. 2.462 Unknown [id number] 2.16.840.1.685282.3.579. 2.462 Unknown [id number] 2.16.840.1.666765.3.579. 2.462 Unknown [id number] 2.16.840.1.988087.3.579. 2.462 Social History Date Type Detail Facility Start: 12-04-2019 Tobacco smoking stat us INIS Ex-smoker [facility] Work Phone: Start: 12-04-2019 Tobacco use and exposure Smoke less tobacco non-user [facility] Work Phone: Start: 09-18-2020 End: 12-10-2021 Alcohol intake Ex-drinker (finding) [facility] Start: 04-05-2019 End: 11-30-2019 History SDOH Alcohol Frequency 1 [facility] Start: 11-30-2019 History SDOH Financial 5 [facility] Start: 11-30-2019 History SDOH Transpo rt Non-Med 2 [facility] Start: 12-04-2019 Tobacco Comment quit 1 month ago [facility] Start: 1970 Sex Assigned At Not on file [facility] Start: 06-15-2021 End: 05-15-2023 Tobacco smoking status [facility] Unknown if ever smoked [facility] Start: 11-26-2019 None [facility] Start: 10-10-2020 Cigarettes [facility] Start: 1970 Sex Assigned At Female C [facility] History of tobacco use Current smoker [facility] Work Phone: Start: 04-05-2019 End: 06-30-2022 History of Social function [facility] Work Phone: Start: 04-05-2019 End: 06-30-2022 Alcohol Use Disorder Identification Test - Consumption [AUDIT-C] [facility] Work Phone: How often to you hav e a drink containing alcohol? Never [facility] Work Phone: Average Number of Drinks Not on file [facility] Work Phone: (I/We) worried wheth er (my/our) food would run out before (I/we) got money to buy more. Never true [facility] Work Phone: Start: 11-23-2021 Gender identity Identifies as female gender (finding) [facility] Start: 11-23-2021 Sexual orientation Heterosexual (sully szymanski) [facility] Tobacco smoking status No Smokin g Status Entered [facility] Start: 07-21-2024 Tobacco smoking stat us INIS Smokes tobacco daily (finding) [facility] Start: 08-20-2024 Sex Female (finding) [facility] NEGATED: Highlighted row [facility] NEGATED: Highlighted row Not [facility] Medical Equipment Procedure Code Equipment Code Equipment Original Text Equipment Identifier Dates Stent Protege Gp s Exprt 14mm .079in Large Diameter Nitinol 30mm 120cm - [id number] Start: 12-04-2019 [id number], [id number], [id number] Start: 12-08-2019 Comment on above: Use as instructed 1 Each three times d aily before meals. 1 Each three times d aily. Goals Date Patient Goal Desired Activity /State Functional Status Date Assessment Result Facility 05-17-2023 Functional status Chair [facility] Work Phone: 05-16-2023 Functional status Ambulates [facility] Work Phone: 07-09-2022 Functional status Ambulates [facility] Work Phone: 03-14-2014 Are you deaf, or do you have serious difficulty hearing No 03/14/2014 11:40 AM Reena Pryor, KATHRIN No [facility] 03-14-2014 Are you blind, or do you have serious difficulty seeing, even when wearing glasses No 03/14/2014 11:40 AM Reena Pryor, KATHRIN No [facility] 03-14-2014 Do you have serious difficulty walking or climbing stairs No 03/14/2014 11:40 AM Reena Pryor, KATHRIN No [facility] 03-14-2014 Do you have difficul ty dressing or bathing No 03/14/2014 11:40 AM EDReena Arita, RN No [facility] 03-14-2014 Because of a physica l, mental, or emotional condition, do you have difficulty doing errands alone such as visiting a physician's office or shopping No 03/14/2014 11:40 AM Reena Pryor, RN No [facility] Mental Status Date Assessment Result Facility 07-26-2024 Cognitive function Voice/Name [facility] Work Phone: 07-25-2023 Cognitive function Awake;Alert;A ppropriate;Fol lows Commands [facility] Work Phone: 06-26-2023 Cognitive function Voice/Name [facility] Work Phone: 05-17-2023 Cognitive function [facility]/Name [facility] Work Phone: 05-16-2023 Cognitive function Voice/Name [facility] Work Phone: 05-15-2023 Cognitive function Level Of Cons ciousness Awake;Alert;Appropriate;Fol lows Commands [facility] Work Phone: 12-30-2022 Cognitive function Voice/Name [facility] Work Phone: 12-06-2022 Cognitive function Voice/Name [facility] Work Phone: 07-31-2022 Cognitive function Level Of Cons ciousness Awake;Alert;Appropriate;Fol lows Commands [facility] Work Phone: 07-09-2022 Cognitive function Voice/Name [facility] Work Phone: 06-12-2022 Cognitive function Level Of Cons ciousness Awake;Alert;Appropriate;Fol lows Commands [facility] Work Phone: 05-08-2022 Cognitive function Level Of Cons ciousness Awake;Alert;Appropriate;Fol lows Commands;Responds to vocal stimuli [facility] Work Phone: 04-21-2020 Cognitive function Awake;Alert;A ppropriate;Fol lows Commands [facility] Work Phone: 04-14-2020 Cognitive function Arousable To Voice/Nam e [facility] Work Phone: 03-14-2014 Because of a physica l, mental, or emotional condition, do you have serious difficulty concentrating, remembering, or making decisions No 03/14/2014 11:40 AM EDT Reena Unger, KATHRIN No [facility] Clinical Notes 12-10-2021 to 11-10-2024 Telephone Encounter - Augustine Jaegermarceloseannadege - 11/09/2024 3:18 PM EDTTelephone Encounter - Sandra Jaeger - 11/09/2024 3:18 PM EDT Note Date & Type Note Facility 11-10-2024 Radiology Diagnostic study note [facility] Imaging Services [address], [place] [address] ABD Limited w/ Elastography MR#: [id number] Acct: [id number] Name: ROGERIO FRIEND Rep #: [id number] : 1970 F 54 From: Yuan Garcia MD PCP: Dr. Shashank Tai MD Status: REG C GUTIERREZ Study:ABD Limited w/ Elastography Date of Exa m: 11/10/24 Exam# [id number] Ordering Dr: Lolis Castro REGENERATION OPERATOR-C PROCEDURE: ABD LIMITED W/ ELASTOGRAPHY REASON FOR EXAM: LIVER STEATOSIS COMPARISON: Prior study dated August 25, 2023. TECHNIQUE: Right upper quadrant abdominal ultrasound. [facility] ElastQ Imaging shear wave elastography for non-invasive assessment of liver tissue stiffness. [employer] EPIQ Elite. FINDINGS: LIVER: Size: Unremarkable Length: 16.8 cm Echotexture: Diffusely echogenic suggesting fatty infiltration Contour: Normal Lesions: None identified Elastography: EQI Med: 7.3 kPa EQI Med Joey: 1.58 m/s IQR/Med: 20 %* GALLBLADDER: Surgically absent. COMMON BILE DUCT: Normal measuring 4 mm. . PANCREAS: Normal Visualized portions of the right kidney are unremarkable. No right upper quadrant ascites. US/ABD Limited w/ Elastography IMPRESSION: MODERATE HEPATIC FIBROSIS FATTY LIVER. Status post cholecystectomy. Reference Values: SRU <1.37 m/s (5.7kPa): No to mild fibrosis 1.37 m/s - 2.2 m/s: Moderate to severe fibrosis >2.2 m/s (15kPa): Significant fibrosis / cirrhosis METAVIR Score F2 or higher: 1.34 m/s (5.7kPa) F3 or higher: 1.55 m/s (7.3kPa) F4: 1.80 m/s (10kPa) * If the IQR/Med is >30%, the variance in the measurements is a large and the accuracy of the measurement may be in question. Reading Location: [place] [address] CC: ANA Castro; Dr. Shashank Tai MD ~ Outreach Professional: Signed [facility] 11-09-2024 Telephone encount er Note Reason for call: Pt would like to schedule an appt with Dr. 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 Reason for call: Pt would like to schedule an appt with Dr. 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 Sandra Lira documented in this encounter [facility] 07-26-2024 Evaluation note Diagnosis Onset Date Resolution Change in bowel habits acute Fe bruary 2024 8:50am Constipation acute July 8:50am Dry heaves acute July 26, 2024 8:50am Nausea acute July 26, 2024 8:50am Personal history of colonic polyps acute July 26, 025 8:50am Personal history of colonic polyps acute October 14, 2024 9 :59am Steatosis, liver acute September 9:59am Torres esophagus chronic September 9:59am GERD (gastroesophageal reflux disease) chronic October 14, 2024 9 :59am [facility] Work Phone: 1(235) 844-586102-24-2025 [facility] Medical Records Department [address] [place] [address] History Physical Exam 07/26/24 1008 MR#: [id number] Acct: [id number] Name: ROGERIO FRIEND Rep #: [id number] : 1970 54 From: Zach Friend DO PCP: Dr. Shashank Tai MD Status:[facility] Location: [place] [address] HPI - General General Date of Admission: 07/26/24 Date of Service: 07/26/24 Chief Complaint: GERD HPI Narrative ROGERIO FRIEND, is a 54 F who presents for endoscopic evaluation of GERD 53y/o female presents for consultation with complaints of N/V. 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 GES 08/15/2023 rapid gastric emptying - denies any medication or dietary changes to account for symptoms - c/o no energy - c/o chronic nausea - nausea every day feel full all the time - nausea began when she started taking Ozempic - nausea has persisted - discontinued Ozempic - reports she is not actually vomiting just dry heaves - denies any abdominal pain - denies anything improving her symptoms - started Voquezna 4 months ago - discontinued pantoprazole at that time - she reports this helped the nausea I can eat better - wakes in the morning without nausea - does not eat breakfast - reports the nausea starts once she gets to work - before she eats anything - caffeine - coffee 1-2cup a day and pepsi 5-6 cans a day - NSAIDS - naproxen 2 tabs PRN for headaches and generalized pain - 5 out of 7 days a week - EtOH - denies any in past year - very rare consumption prior to this - Smoking - she is a smoker, daily, tobacco - denies any illicit drug use - denies any marijuana use - can go a week without a BM - stools are formed and loose - stools are small - bowel habits changed for her about 1 year ago - denies any bleeding - prior to this she was having a normal BM daily - formed [facility] Medical History Low iron High cholesterol Shortness of breath on exertion Hypertension URI (upper respiratory infection) Contact with or exposure to other viral diseases Multifocal pneumonia Sleep apnea History of kidney stones Migraine headache Hx of colonic polyp Wears dentures Wears glasses Bruising Depression Anxiety DVT (deep venous thrombosis) Easy bruising Excessive bleeding Injury of head and neck Gastric reflux Smoker Chronic cough Leg cramps History of echocardiogram Contraceptive management Menorrhagia with irregular cycle 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 Leukocytosis Diabetes mellitus Home Medications ???Medication ???Instructions ???Recorded ???Last Taken ???Type metformin 500 mg tablet 1,000 mg PO BID diabetes 02/28/14 11/26/19 16:00 History clopidogrel 75 mg tablet 75 mg PO DAILY 12/14/19 07/22/24 H istory warfarin 5 mg tablet 8.5 mg PO DAILY DVT 12/14/1907/22 History biotin 5,000 mcg disintegrating 10,000 mcg PO DAILY 04/03/20 Unkno wn History tablet doxepin 10 mg capsule 10 mg PO PRN PRN Sleep 12/14/20 Un known History bupropion HCl 150 mg tablet,12 hr 150 mg PO BID 07/05/22 Unknown Hi story sustained-release valsartan 160 mg tablet 160 mg PO DAILY 07/05/22 07/09/22 History pioglitazone 30 mg tablet 30 mg PO DAILY Diabetes 05/15/23 U nknown History ondansetron 4 mg disintegrating 4 mg PO Q8H PRN PRN Nausea #10 tab s 06/26/23 Unknown Rx tablet insulin glargine U-300 conc 300 40 unit subcut QHS 04/21/24 Unknow n History unit/mL (3 mL) subcutaneous pen (Toujeo Max U-300 SoloStar) nicotine 14 mg/24 hr daily 1 patch transdermal Q24H PRN 04/21 Unknown History transdermal patch smoking cessation prochlorperazine maleate 10 mg 10 mg PO TID PRN nausea 04/21/24 U nknown History capsule,extended release rosuvastatin 40 mg tablet 40 mg PO QDAY 04/21/24 Unknown His tory venlafaxine 150 mg 150 mg PO DAILY 04/21/24 Unknown H istory capsule,extended release 24 hr vonoprazan 20 mg tablet (Voquezna) 20 mg PO QDAY 04/21/24 Unknown H istory polysaccharide iron complex 150 mg 150 mg PO BID #180 caps 06/23/24 Unknown Rx iron capsule (Ferrex) sennosides 8.6 mg-docusate sodium 1 tab PO BID PRN PRN STOOL SOFTEN ER 07/21/24 Unknown History 50 mg tablet (Senexon-S) sucralfate 1 gram tablet 1 g PO BID 07/21/24 Unknown Histor y (more content not included)...[facility]01-22-2025 Evaluation note* Diagnosis Onset Date Resolution Status Admit Date Hx of colonic polyp acute 2024 11:03am Torres esophagus chronic June 23, 2024 11:03am Iron deficiency resolved June 032024 11:03am Change in bowel habits acute Fe bruary 2024 8:50am Constipation acute July 8:50am Dry heaves acute July 26, 2024 8:50am Nausea acute July 26, 2024 8:50am Personal history of colonic polyps acute July 26 8:50am Steatosis, liver acute September 9:59am [facility] Work Phone: 1(926) 833-367101-22-2025 Evaluation note* Diagnosis Onset Date Resolution Status Admit Date Hx of colonic polyp acute 2024 11:03am Torres esophagus chronic June 23, 2024 11:03am Iron deficiency resolved June 032024 11:03am Change in bowel habits acute Fe bruary 2024 8:50am Constipation acute July 8:50am Dry heaves acute July 26, 2024 8:50am Nausea acute July 26, 2024 8:50am Personal history of colonic polyps acute July 26 8:50am Personal history of colonic polyps acute October 14, 2024 9 :59am Steatosis, liver acute September 9:59am Torres esophagus chronic September 9:59am GERD (gastroesophageal reflu x disease) chronic October 14, 2024 9 :59am [facility] Work Phone: 1(378) 698-372112-09-2024 Evaluation note* Diagnosis Onset Date Resolution Status Admit Date Change in bowel habits acute De cember 2023 10:59am Constipation acute May 10:59am Dry heaves acute May 10, 2024 10:59am Nausea acute May 10, 2024 10:59am Personal history of colonic polyps acute May 10 10:59am Maxillary sinusitis acute 2024 12:24pm Iron deficiency resolved June 022024 3:59pm Iron deficiency anemia resolved [facility] 2024 3:59pm Hx of colonic polyp acute 2024 11:03am Torres esophagus chronic June 23, 2024 11:03am Iron deficiency resolved June 032024 11:03am Change in bowel habits acute bruary 2024 8:50am Constipation acute July 8:50am Dry heaves acute July 26, 2024 8:50am Nausea acute July 26, 2024 8:50am Personal history of colonic polyps acute July 26 8:50am [facility] Work Phone: 1(948) 336-958905-24-2024 Note ORIGINAL EXAMINATION: GASTRIC EMPTYING STUDY10/24/2023 3:10 pm TECHNIQUE: The patient received an oral radiolabeled solid-phase meal utilizing 2 mCi of Tc-99m sulfur colloid in cooked egg. Sequential anterior and posterior images of the abdomen were then acquired over the next four hours. Computer quantification of gastric emptying (using geometric mean activity) was performed. COMPARISON: None HISTORY: ORDERING SYSTEM PROVIDED HISTORY: Reason for Exam: GERD NAUSEA, CHRONIC GERD FINDINGS: Sequential static images demonstrates radiotracer within the gastric lumen, progressively emptying into small bowel. Computer quantification demonstrates gastric retention as follows: 97 % at 0.5 hr (normal min 70%) 97 % at 1 hr (normal 30%-90%) 57 % at 2 hr (normal max 60%) 14 % at 3 hr (normal max 30%) 2 % at 4 hr (normal max 10%) IMPRESSION: Briefly delayed gastric emptying at 1 hour, with subsequent normalization. Interpreted by: Osmar Sneed DO Preliminary Report By: Osmar Sneed DO Electronically signed By Osmar Sneed DO Dictated Date: 10/24/2023 4:27:27 PM Prelim Date: 10/24/2023 4:28:48 PM Sign Date: 10/24/2023 4:28:48 PM Ordering Provider: [facility]01-25-2024 Discharge summary Author Lolis Ladd [facility] June 26, 2023 9:51pm Note Date/Time June 26, 2023 6 :47pm [facility] Medical Records Department [address] [place] [address] Emergency Department Summary 06/26/23 MR#: [id number] Acct: [id number] Name: ROGERIO FRIEND Rep #:[id number] : 1970 53 From: Lolis Ladd MD PCP: Dr. Shashank Tai MD Status:REG E R Location: ED HPI History of Present Illness Chief Complaint: Chest Pain Informant: patient Narrative Narrative: Patient presents with multiple complaints. She reports feeling short of breath along with having epigastric pain and nausea. She states the nausea is been ongoing for quite some time. She has had some left posterior shoulder pain as well as some pain on her right lower quadrant. Patient was seen earlier this month and diagnosed with colitis. Her C. difficile test was negative. She completed a full course of Cipro and Flagyl. She saw her primary care physiciantoday who had lab work obtained. They are waiting insurance approval for imaging studies. Patient states she did not feel well at work tonight and the nurse that her company thought she should come in to be evaluated. 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 Bruising Chronic cough Contact with or exposure to other viral diseases Contraceptive management Depression Diabetes mellitus DVT (deep venous thrombosis) Easy bruising Excessive bleeding Gastric reflux History of echocardiogram History of kidney stones Injury of head and neck Leg cramps Leukocytosis Menorrhagia with irregular cycle Migraine headache Multifocal pneumonia Sleep apnea Smoker URI (upper respiratory infection) Wears dentures Wears glasses Home Medications metformin 500 mg tablet 1,000 mg PO BID diabetes 02/28/14 [History Last Taken 11/26/19 16:00] atorvastatin 40 mg tablet 80 mg PO DAILY cholesterol 11/26/19 [History Last Taken 11/25/19] clopidogrel 75 mg tablet 75 mg PO DAILY 12/14/19 [History Last Taken 07/05/22] warfarin 5 mg tablet 7 mg PO DAILY DVT 12/14/19 [History Last Taken 07/05/22] biotin 5,000 mcg disintegrating tablet 10,000 mcg PO DAILY 04/03/20 [History Last Taken Unknown] pantoprazole 40 mg tablet,delayed release 40 mg PO DAILY 04/03/20 [History Last Taken 07/09/22] doxepin 10 mg capsule 10 mg PO PRN PRN Sleep 12/14/20 [History Last Taken Unknown] escitalopram oxalate 20 mg tablet (Lexapro) 20 mg PO DAILY 12/14/20 [History Last Taken Unknown] bupropion HCl 150 mg tablet,12 hr sustained-release 150 mg PO BID 07/05/22 [History Last Taken Unknown] valsartan 160 mg tablet 160 mg PO DAILY 07/05/22 [History Last Taken 07/09/22] sennosides 8.6 mg-docusate sodium 50 mg tablet (Senexon-S) 1 tab PO BID PRN Constipation 11/25/22 [History Last Taken Unknown] dapagliflozin propanediol 10 mg tablet (Farxiga) 10 mg PO DAILY 05/15/23 [History Last Taken Unknown] pioglitazone 30 mg tablet 30 mg PO DAILY Diabetes 05/15/23 [History Last Taken Unknown] levofloxacin 750 mg tablet 750 mg PO DAILY #5 tabs 05/17/23 [Rx Last Taken Unknown] ciprofloxacin HCl 500 mg tablet 500 mg PO BID #20 TABLETS 06/10/23 [Rx Last Taken Unknown] metronidazole 500 mg tablet 500 mg PO Q6H #40 tabs 06/10/23 [Rx Last Taken Unknown] ondansetron 4 mg disintegrating tablet 4 mg PO Q8H PRN PRN Nausea #10 tabs 06/26/23 [Rx Last Taken Unknown] Allergy/AdvReac Type Severity Reaction Status Date / Time latex Allergy Mild rash Verified 06/26/23 18:26 Penicillins [PCN] Allergy Hives Verified 06/26/23 18:26 Family History Brother Diabetes Father Diabetes Mother Diabetes Uncle Diabetes Skin cancer Colon cancer Uncle Diabetes Aunt Breast cancer Surgical History H/O lithotripsy H/O tubal ligation History of embolectomy History of esophagogastroduodenoscopy (EGD) Hx of cholecystectomy Hx of partial nephrectomy Status post endometrial ablation Social History household members: family current occupational status: employed current occupation: [employer] history of recent travel: No sexually active: No Smoking Status: Current every day smoker tobacco type: cigarettes alcohol intake: never substance use type: does not use what type of physical activity do you participate in: other seatbelt use: always do you feel safe at home: Yes additional social history: single ROS ROS ED Constitutional Constitutional ED: Denies chills or fever(s) Eyes Eyes: Denies discharge from eye(s) ENT ENT ED: Denies discharge from eye(s), rhinorrhea or sore throat Cardiovascular Cardiovascular: Reports chest pain; Denies palpitations Respiratory/Chest Respiratory/Chest: Reports dyspnea; Denies cough Gastrointestinal Gastrointestinal: Reports abdominal pain and nausea; Denies diarrhea or vomiting Musculoskeletal Musculoskeletal: Reports back pain; Denies extremity pain Integumentary Denies Abrasions or rash Neurologic Neurologic: Reports weakness; Denies headache(s) Psychiatric Psychiatric: Denies anxiety or depression Allergic/Immunologic Allergic/Immunologic ED: Denies lip swelling or urticaria EXAM Physical Exam Const Vital Signs: 06/26/23 18:26 06/26/23 18:38 06/26/23 18:38 Temperature 97.8 F Temperature Source Temporal Pulse Rate 115 H 95 Respiratory Rate 18 14 Respiratory Effort Normal Blood Pressure 128/85 H 130/76 H Blood Pressure Mean 99 94 Pulse Ox 100 99 Oxygen Delivery Method Room Air Room Air 06/26/23 21:20 Temperature Temperature Source Pulse Rate 88 Respiratory Rate 16 Respiratory Effort Blood Pressure 133/79 H Blood Pressure Mean 97 Pulse Ox 100 Oxygen Delivery Method Room Air Positive well nourished and well developed General Appearance ED: well developed HEENT Reports moist mucous membranes Eyes EOMs intact bilaterally Chest Wall inspection of chest normal and palpation of chest normal Resp normal respiratory effort and clear to auscultation bilaterally Cardio regular rate and regular rhythm GI GI Narrative: Abdomen soft with mild tenderness in the epigastrium as well as the right lower quadrant. No guarding or rebound. Extremity normal to inspection Neuro oriented x3 and no sensory deficits noted Motor Exam: strength 5/5 throughout Psych mental status grossly normal Skin no rashes or lesions noted MDM MDM MDM Narrative Medical decision making narrative: Patient had lab work drawn earlier today. White blood cell count is 12.1 with normal differential. Hemoglobin 15.5. Chemistry studies significant for glucose of 183. Normal renal function. LFTs unremarkable. At this time we will add on a troponin and an INR. She will undergo CTA of the chest, abdomen, and pelvis. Patient is on desk monitor and EKG has been obtained. She will be ordered Zofran for nausea. History & Record Review Discussion w/independent historian: Patient Additional record(s) reviewed:: Prior outpatient record, Prior ED visit and Prior labs Lab Data Attestation: I reviewed the patient's lab results. Labs: Laboratory Results - last 24 hr 06/26/23 06/26/23 18:36 20:32 PT 43.8 H INR 4.5 H* Troponin I High Sens 4 Radiography Diagnostic Testing: Clinical Impression(s) from Imaging Studies Chest/Abdomen/Pelvis CTA 06/26/23 18:43 IMPRESSION: Normal contrast-enhanced CT of the chest. Findings which may be consistent with nonspecific gastritis. Status post cholecystectomy. Distal abdominal aortic stent. No evidence for aortic dissection. Electronically Signed: Scott Lugo MD at 19:36 EST , EKG Initial EKG: Attestation: I personally reviewed and interpreted this EKG as follows: Interpretation: Sinus Tachycardia (Sinus tachycardia at 110. No acute ischemia.) Treatment and Re-Evaluation :: Patient's lab work from earlier today is reviewed. Her INR tonight is elevated at 4.5. She states that was checked in the office today and was just over 6. She was already instructed to hold her Coumadin for the next couple days. Her troponin tonight is normal at 4. CTA of the chest, abdomen, and pelvis reveals findings consistent with gastritis. There is a distal abdominal aortic stent. No evidence of dissection. Patient is prescribed pantoprazole, but states that she has not been able to take it regularly because she does not feel that her medicine at stays down given her nausea. I will write her prescription for Zofran. She is to follow-up with her primary care physician as planned. Discharge Plan Triage Chief Complaint: Chest Pain ED Provider: Lolis Ladd Dx/Rx/DC Orders Clinical Impression: Epigastric pain, Vomiting Instructions: ED Vomiting (Adult), ED Epigastric Pain Uncertain Cause Prescriptions: New ondansetron 4 mg tablet,disintegrating 4 mg PO Q8H PRN PRN (Reason: Nausea) Qty: 10 0RF No Action metformin 500 MG tablet 1,000 mg PO BID Patient Comments: atorvastatin 40 MG tablet 80 mg PO DAILY clopidogrel 75 MG tablet 75 mg PO DAILY warfarin 5 MG tablet 7 mg PO DAILY pantoprazole 40 MG tablet 40 mg PO DAILY biotin 5,000 MCG tablet,disintegrating 10,000 mcg PO DAILY sennosides-docusate sodium [Senexon-S] 8.6-50 mg tablet 1 tab PO BID PRN (Reason: Constipation) doxepin 10 mg capsule 10 mg PO PRN PRN (Reason: Sleep) escitalopram oxalate [Lexapro] 20 mg tablet 20 mg PO DAILY Patient Comments: TAKE 1 TABLET BY MOUTH EVERY DAY bupropion HCl 150 mg tablet sustained-release 12 hr 150 mg PO BID Patient Comments: TAKE 1 TABLET ORALLY TWICE PER DAY FOR 90 DAYS valsartan 160 mg tablet 160 mg PO DAILY Patient Comments: TAKE 1 TABLET BY MOUTH EVERY DAY Farxiga 10 mg tablet 10 mg PO DAILY pioglitazone 30 mg tablet 30 mg PO DAILY Patient Comments: TAKE 1 TABLET ORALLY ONCE PER DAY FOR 30 DAYS levofloxacin 750 mg tablet 750 mg PO DAILY Qty: 5 0RF metronidazole [metronidazole] 500 mg tablet 500 mg PO Q6H Qty: 40 0RF ciprofloxacin HCl [ciprofloxacin HCl] 500 mg tablet 500 mg PO BID Qty: 20 0RF Primary Care Provider: Shashank Tai Chi Referrals: Shashank Tai Chi, MD [Primary Care Provider] - 1 Week Disposition Disposition: Home, Self Care What to do if you have Problems For any increased pain, shortness of breath, bleeding, nausea or vomiting, chestpain, or any unexpected problems, contact your Primary Care Provider. Call [facility] ([phone]) or report to the closest Emergency Room. Call 911 if necessary. 06/26/232150 <Electronically signed by Lolis Ladd MD> Cosigner Signature (if applicable): CC: Dr. Shashank Tai MD ~ Signed [facility] Work Phone: 1(615) 100-859112-31-2023 Discharge summary Author Abrahan Snyderrus [facility] June 01, 2023 1:03am Note Date/Time 2023 10:32pm [facility] Medical Records Department [address] [place] [address] Emergency Department Summary 05/31/23 MR#: [id number] Acct: [id number] Name: ROGERIO FRIEND Rep #:[id number] : 1970 53 From: Abrahan Marquez PCP: Dr. 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 Bruising Chronic cough Contraceptive management Depression Diabetes mellitus DVT (deep venous thrombosis) Easy bruising Excessive bleeding Gastric reflux History of echocardiogram History of kidney stones Injury of head and neck Leg cramps Leukocytosis Menorrhagia with irregular cycle Migraine headache Sleep apnea Smoker Wears dentures Wears glasses Home Medications metformin 500 mg tablet 1,000 mg PO BID diabetes 02/28/14 [History Last Taken 11/26/19 16:00] atorvastatin 40 mg tablet 80 mg PO DAILY cholesterol 11/26/19 [History Last Taken 11/25/19] clopidogrel 75 mg tablet 75 mg PO DAILY 12/14/19 [History Last Taken 07/05/22] warfarin 5 mg tablet 7 mg PO DAILY DVT 12/14/19 [History Last Taken 07/05/22] biotin 5,000 mcg disintegrating tablet 10,000 mcg PO DAILY 04/03/20 [History Last Taken Unknown] pantoprazole 40 mg tablet,delayed release 40 mg PO DAILY 04/03/20 [History Last Taken 07/09/22] doxepin 10 mg capsule 10 mg PO PRN PRN Sleep 12/14/20 [History Last Taken Unknown] escitalopram oxalate 20 mg tablet (Lexapro) 20 mg PO DAILY 12/14/20 [History Last Taken Unknown] bupropion HCl 150 mg tablet,12 hr sustained-release 150 mg PO BID 07/05/22 [History Last Taken Unknown] valsartan 160 mg tablet 160 mg PO DAILY 07/05/22 [History Last Taken 07/09/22] sennosides 8.6 mg-docusate sodium 50 mg tablet (Senexon-S) 1 tab PO BID PRN Constipation 11/25/22 [History Last Taken Unknown] dapagliflozin propanediol 10 mg tablet (Farxiga) 10 mg PO DAILY 05/15/23 [History Last Taken Unknown] pioglitazone 30 mg tablet 30 mg PO DAILY Diabetes 05/15/23 [History Last Taken Unknown] levofloxacin 750 mg tablet 750 mg PO DAILY #5 tabs 05/17/23 [Rx Last Taken Unknown] Allergy/AdvReac Type Severity Reaction Status Date / Time latex Allergy Mild rash Verified 05/31/23 22:16 Penicillins [PCN] Allergy Hives Verified 05/31/23 22:16 Family History Brother Diabetes Father Diabetes Mother Diabetes Uncle Diabetes Skin cancer Colon cancer Uncle Diabetes Aunt Breast cancer Surgical History H/O lithotripsy H/O tubal ligation History of embolectomy History of esophagogastroduodenoscopy (EGD) Hx of cholecystectomy Hx of partial nephrectomy Status post endometrial ablation Social History (Updated 05/15/23 @ 03:[address] Leola Bowman MD) household members: family current occupational status: employed current occupation: [employer] history of recent travel: No sexually active: No Smoking Status: Current every day smoker tobacco type: cigarettes alcohol intake: never substance use type: does not use what type of physical activity do you participate in: other seatbelt use: always do you feel safe at home: Yes additional social history: single EXAM Physical Exam Const Vital Signs: 05/31/23 22:16 05/31/23 22:20 05/31/23 22:43 Temperature 96.9 F L 96.9 F L Temperature Source Temporal Temporal Pulse Rate 92 90 Respiratory Rate 16 18 Respiratory Effort Blood Pressure 122/75 H 122/75 H Blood Pressure Mean 90 90 Pulse Ox 91 90 Oxygen Delivery Method Room Air 05/31/23 22:43 05/31/23 23:20 05/31/23 23:20 Temperature 98 F Temperature Source Temporal Pulse Rate 68 Respiratory Rate 20 H Respiratory Effort Normal Non-Labored Blood Pressure 134/76 H Blood Pressure Mean 95 Pulse Ox 94 Oxygen Delivery Method Room Air Room Air Room Air 06/01/23 00:16 Temperature 97.6 F L Temperature Source Temporal Pulse Rate 72 Respiratory Rate 20 H Respiratory Effort Blood Pressure 130/80 H Blood Pressure Mean 96 Pulse Ox 94 Oxygen Delivery Method Room Air MDM MDM MDM Narrative Medical decision making narrative: HISTORY OF PRESENT ILLNESS: 53-year-old female presents with chief complaint of shortness of breath, weakness feeling overall ill. States she is been ill since before [place] approximately 6 days ago. States she was recently admitted for pneumonia but never really got better. She further states REVIEW OF SYSTEMS: Pertinent positives: Shortness of breath Pertinent negatives: [] PHYSICAL EXAM: Nursing triage notes reviewed, Vital signs reviewed Constitutional: please see mdm HENT: MMM Eyes: Pupils equal round and reactive to light, Extraocular muscles intact Neck: No stridor, no JVD, full neck ROM Lungs: Clear to auscultation, No wheezing or rales. No increased work of breathing, no conversational dyspnea, no accessory muscle use, no nasal flaring. No respiratory distress noted Heart: Regular rate and rhythm, No murmurs, No rubs and No gallops, 2+ distal pulses (radial, femoral, posterior tibial) in all extremities Abdomen: Soft, there is no tenderness, rigidity, rebound or guarding, no obvious peritoneal signs, no palpable pulsatile abdominal masses, no auscultated abdominal bruit : No CVAT Extremities: No edema Neuro: No focal neurological deficits, cranial nerves II through XII intact, 5/5 strength in all extremities. Intact sensation to light touch in all extremities, 2+ reflexes bilateral patella tendons. Normal gait. No ataxia. Skin: No rash or lesions noted MEDICAL DECISION MAKING: Chief Complaint: Shortness of breath External records reviewed: Inpatient records reviewed: Admitted on 05/15/2023 through 05/17/2023 for multifocal pneumonia, hyponatremia, diarrhea and acute kidney injury Factors affecting care: DVT, aortic thromboembolism, on Coumadin and Plavix, GERD, type 2 diabetes, hypothyroidism, hyperlipidemia, hypertension Social determinants of health: none History obtained from others: The patient's son Consults: none MDM Narrative: Patient was hemodynamically stable, afebrile, nontoxic-appearing. Lungs were clear I considered the following differential diagnosis: Pneumonia, COVID, flu, RSV, heart failure, arrhythmia, anemia ALL IMAGES (IF OBTAINED) HAVE BEEN PERSONALLY REVIEWED AND INTERPRETED BY MYSELF. EKG with normal sinus rhythm, normal axis, normal intervals, no STEMI CBC without leukocytosis, severe anemia, no thrombocytopenia. INR 2.1 BMP without evidence of significant electrolyte abnormalities, no anion gap, no acute kidney injury. High-sensitivity troponin is negative, no evidence of myocardial ischemia BNP within normal limits suggestive of no heart failure RSV, COVID and flu positive for RSV I have personally reviewed the patient's chest x-ray. Chest x-ray is unremarkable for pulmonary edema, pneumothorax, pneumonia or focal cardiopulmonary abnormality. The synthesis of the patient's history, physical exam, labs, images suggest RSV. Patient was ambulated and maintain oxygen saturation of 91%. I discussed with the patient. Discussed admission for oxygen monitoring possible etiology however the patient stated she like to go home get home pulse ox and return if symptoms worsen The patient and/or family, caregivers express understanding. The patient and/or family, caregivers agrees with the plan. Shared decision making: I will have a discussion with the patient and or visitors regarding risk/benefits of further testing or admission. They will be made aware of of the risk/benefits inherent in this decision they will be given the opportunity to voice understanding. Total critical care time today provided was at least 0 minutes. This excludes separately billable procedures. Critical care time (if documented) is secondary to the patient having high probability of clinically significant/life threatening deterioration in the patient's condition which required my urgent intervention. Impression: 1. Dyspnea 2. RSV Dispo: Discharge Lab Data Labs: Laboratory Results - last 24 hr 05/31/23 23:28 WBC 5.4 RBC 4.65 Hgb 14.3 Hct 43.8 MCV 94.2 MCH 30.8 MCHC 32.6 RDW Std Deviation 49.4 H RDW Coeff of Edvin 14.5 Plt Count 269 MPV 9.6 Immature Gran % (Auto) 0.400 Neut % (Auto) 59.3 Lymph % (Auto) 26.0 [place] % (Auto) 11.4 H Eos % (Auto) 1.8 Baso % (Auto) 1.1 H Absolute Neuts (auto) 3.2 Absolute Lymphs (auto) 1.41 Nucleated RBC % 0 PT 23.7 H INR 2.1 Sodium 139 Potassium 3.7 Chloride 107 Carbon Dioxide 31.0 Anion Gap 1 L BUN 11 Creatinine 0.74 Estim Creat Clear Calc 82.31 Est GFR (MDRD) Af Amer 105 Est GFR (MDRD) Non-Af 87 BUN/Creatinine Ratio 14.8 Glucose 179 H Calcium 9.6 Troponin I High Sens 6 B-Natriuretic Peptide 42.2 Radiography Diagnostic Testing: Clinical Impression(s) from Imaging Studies Chest X-Ray 05/31/23 23:40 IMPRESSION: No evidence of acute cardiopulmonary disease. Electronically Signed: Scott Man DO at 0:08 EST Reading Location ID and State: [facility] / [place] Tel , Service support , Discharge Plan Triage Chief Complaint: Shortness of Breath ED Provider: Abrahan Herrera Dx/Rx/DC Orders Clinical Impression: RSV (respiratory syncytial virus infection) Instructions: RSV (Respiratory Syncytial Virus) Prescriptions: No Action metformin 500 MG tablet 1,000 mg PO BID Patient Comments: atorvastatin 40 MG tablet 80 mg PO DAILY clopidogrel 75 MG tablet 75 mg PO DAILY warfarin 5 MG tablet 7 mg PO DAILY pantoprazole 40 MG tablet 40 mg PO DAILY biotin 5,000 MCG tablet,disintegrating 10,000 mcg PO DAILY sennosides-docusate sodium [Senexon-S] 8.6-50 mg tablet 1 tab PO BID PRN (Reason: Constipation) doxepin 10 mg capsule 10 mg PO PRN PRN (Reason: Sleep) escitalopram oxalate [Lexapro] 20 mg tablet 20 mg PO DAILY Patient Comments: TAKE 1 TABLET BY MOUTH EVERY DAY bupropion HCl 150 mg tablet sustained-release 12 hr 150 mg PO BID Patient Comments: TAKE 1 TABLET ORALLY TWICE PER DAY FOR 90 DAYS valsartan 160 mg tablet 160 mg PO DAILY Patient Comments: TAKE 1 TABLET BY MOUTH EVERY DAY Farxiga 10 mg tablet 10 mg PO DAILY pioglitazone 30 mg tablet 30 mg PO DAILY Patient Comments: TAKE 1 TABLET ORALLY ONCE PER DAY FOR 30 DAYS levofloxacin 750 mg tablet 750 mg PO DAILY Qty: 5 0RF Stand Alone Forms: ED Work / School Excuse Primary Care Provider: Shashank Tai Chi Referrals: Shashank Tai Chi, MD [Primary Care Provider] - Activity Restrictions/Additional Instructions: Thank you for trusting us with your care today! Please take Tylenol (2 pills, 650 mg), ibuprofen (2 pills, 400 mg) every 6 hoursas needed for pain and fever control. Please drink plenty of fluids. Please return to the emergency department if your symptoms change or worsen. Specifically develop blue discoloration of your skin, worsening shortness of breath, if you notice with your home pulse ox the oxygen levels below 88%. Please follow with your primary care physician for further outpatient evaluationand management. Disposition Disposition: Home, Self Care What to do if you have Problems For any increased pain, shortness of breath, bleeding, nausea or vomiting, chestpain, or any unexpected problems, contact your Primary Care Provider. Call [facility] ([phone]) or report to the closest Emergency Room. Call 911 if necessary. 06/01/23102 <Electronically signed by Abrahan Herrera DO> Cosigner Signature (if applicable): CC: Dr. Shashank Tai MD ~ Signed [facility] Work Phone: 1(978) 692-166512-15-2023 Progress note Author Shavon Kingsley [facility] May 16, 2023 4:16pm Note Date/Time May 16, 2023 1:13pm [facility] Medical Records Department [address] [place] [address] Progress Note 05/16/23 1310 MR#: [id number] Acct: [id number] Name: ROGERIO FRIEND Rep #:[id number] : 1970 52 From: Shavon Kingsley MD PCP: Dr. Shashank Tai MD Status:ADM I N Location: [place] [address] Subjective Subjective Patient seen and examined. She said she felt better today. She denied any fever,chills, palpitations, dizziness, nausea, vomiting or any other symptoms. Review of systems is otherwise negative. Objective Data Objective Data Vital Signs: Vital Signs Temp Pulse Resp BP Pulse Ox O2 Del Method 97.9 F 60 18 139/74 H 97 Room Air 05/16/23 07:44 05/16/23 07:44 05/16/23 07:44 05/16/23 07:44 05/16/23 08:15 05/16/23 08:15 Oxygen Delivery Method Room Air Weight: 186 lb 1.122 oz Body Mass Index (BMI) 29.2 Intake & Output: Intake and Output for Last 24 Hours 05/14/23 05/15/23 05/16/23 23:59 23:59 23:59 Intake Total 3557.08 / 3857.08 755 / 755 Output Total 400 / 400 500 / 500 Balance 3157.08 / 3457.08 255 / 255 Lab / Micro Data 05/16/23 07:45 05/16/23 07:45 Labs: Laboratory Results - last 24 hr 05/15/23 01:05: Diff Path Review Reviewed 05/15/23 16:44: POC Glucose 192 H 05/15/23 22:52: POC Glucose 220 H 05/16/23 06:24: POC Glucose 172 H 05/16/23 07:45: WBC 14.0 H, RBC 4.56, Hgb 14.0, Hct 42.3, MCV 92.8, MCH 30.7, MCHC 33.1, RDW Std Deviation 48.8 H, RDW Coeff of Edvin 14.4, Plt Count 399, MPV 9.9, Immature Gran % (Auto) 1.900 H, Neut % (Auto) 48.6, Lymph % (Auto) 40.1, [place] % (Auto) 6.0, Eos % (Auto) 2.0, Baso % (Auto) 1.4 H, Absolute Neuts (auto) 6.8, Absolute Lymphs (auto) 5.62 H, Nucleated RBC % 0, Reactive Lymphocytes 1+, Sodium 138, Potassium 3.6, Chloride 109 H, Carbon Dioxide 24.0, Anion Gap 5, BUN16, Creatinine 0.57, Estim Creat Clear Calc 108.08, Est GFR (MDRD) Af Amer 142, Est GFR (MDRD) Non-Af 118, BUN/Creatinine Ratio 28.0 H, Glucose 158 H, Calcium 9.2 05/16/23 10:42: POC Glucose 258 H Micro: Microbiology 05/15/23 17:00 Stool Stool Lactoferrin - Final 05/15/23 17:00 Stool Enteric Bacteriology - Final 05/15/23 17:00 Stool C. difficile GDH Antigen & Toxins - Final 05/15/23 17:00 Stool C. difficile DNA Amplification - Final 05/15/23 05:55 Mucosa - Nose Coronavirus COVID-19 PCR - Final 05/15/23 05:55 Mucosa - Nose Respiratory Panel (PCR) - Final 05/15/23 04:50 Urine, Random Legionella Antigen - Final 05/15/23 04:50 Urine, Random Streptococcus pneumoniae Antigen (M - Final 05/15/23 01:05 Nasal Secretion SARS-CoV-2 & FLU Antigen (Rapid) - Final Rhythm Strip Rhythm Strip: Sinus Rhythm Rate: 68 Ectopy: None Physical Exam Const alert and oriented x3 Constitutional Narrative: frail, looks better than yesterday. HEENT normocephalic and head/scalp atraumatic Eyes PERRL and EOMs intact bilaterally Neck no lymphadenopathy and supple Lymph Lymphatic: no lymphadenopathy noted and no lymphedema noted Resp normal respiratory effort, normal air movement and clear to auscultation bilaterally Cardio regular rate, regular rhythm, S1 normal heart sound, S2 normal heart sound and no murmurs GI normal to inspection, nondistended, normoactive bowel sounds, soft to palpation,non-tender and non-distended Extremity normal capillary refill, no clubbing, cyanosis or edema and no calf tenderness General Extremity: no tenderness to palpation of joints or extremities Skin General Skin Exam: no breakdown Neuro CN's II-XII intact bilaterally, no focal motor deficits, no sensory deficits noted and deep tendon reflexes 2+ bilaterally Motor Exam: strength 5/5 throughout and general weakness Psych thought process normal and cooperative Mood & Affect: flat affect Assessment & Plan Assessment/Plan (1) Multifocal pneumonia: (2) Acute hyponatremia: (3) Diarrhea: (4) DAVID (acute kidney injury): PLAN: Plan #Bilateral pneumonia * Likely superimposed on recent viral illness. Currently on room air but feels very weak and tired. * On ceftriaxone and azithromycin. * Breathing treatments bronchodilators. Urine for strep and Legionella negative. COVID both PCR and antigen test negative. Flu test negative * titrate oxygen if needed to maintain sats >90% * feels better today * #DAVID: resovled. Cr is down to 0.57 #Hyponatremia:resolved. Sodium is 138 today. 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 Also on Plavix. Target INR is between 2 and 3. INR is therapeutic #Hypokalemia: Potassium is 3.4 this morning. Will replace and trend. #Hypertension: IV hydralazine as needed. Valsartan on hold due to DAVID. #Hyperlipidemia: On statin #Type 2 diabetes mellitus with hyperglycemia: Insulin sliding scale. Checks ACHS. All meds held on admission. #GERD: PPI #DONAVAN: On CPAP nightly. #Depression: On escitalopram and bupropion #DVT prophylaxis: On Coumadin. Monitor INR with target INR of 2-3. Charges/Coding Visit Charges Inpatient E&M: 00496 Subs Hosp L2 05/16/231615 <Electronically signed by Shavon Kingsley MD> Shavon Kingsley MD Cosigner Signature (if applicable): CC: ~ Signed [facility] Work Phone: 1(960) 533-243612-14-2023 Progress note Author Shavon [facility] May 15, 2023 4:40pm Note Date/Time May 15, 2023 4:19pm [facility] Medical Records Department [address] [place] [address] Progress Note 05/15/231615 MR#: [id number] Acct: [id number] Name: ROGERIO FRIEND Rep #:[id number] : 1970 52 From: Shavon Kingsley MD PCP: Dr. Shashank Tai MD Status:ADM I N Location: [place] [id number] Subjective Subjective Patient seen and examined prior to discharge. She felt very weak and tired. She denied any fever or chills, cough, chest pain, palpitations, dizziness, nausea vomiting or any other symptoms. Review of systems otherwise negative. She has remained hemodynamically stable. Objective Data Objective Data Vital Signs: Vital Signs Temp Pulse Resp BP Pulse Ox O2 Del Method 97.9 F 70 18 115/61 95 Room Air 05/15/23 15:27 05/15/23 15:27 05/15/23 15:27 05/15/23 15:27 05/15/23 15:27 05/15/23 15:28 Oxygen Delivery Method Room Air Weight: 186 lb 1.122 oz Body Mass Index (BMI) 29.2 Intake & Output: Intake and Output for Last 24 Hours 05/13/23 05/14/23 05/15/23 23:59 23:59 23:59 Intake Total 2507.08 / 2507.08 Output Total 400 / 400 Balance 2107.08 / 2107.08 Lab / Micro Data 05/15/23 07:35 05/15/23 07:35 Labs: Laboratory Results - last 24 hr 05/15/23 01:05: WBC 23.0 H, RBC 4.85, Hgb 14.8, Hct 43.8, MCV 90.3, MCH 30.5, MCHC 33.8, RDW Std Deviation 45.9 H, RDW Coeff of Edvin 13.8, Plt Count 446, MPV 9.9, Immature Gran % (Auto) 2.400 H, Neut % (Auto) 64.3, Lymph % (Auto) 25.1, [place] % (Auto) 6.8, Eos % (Auto) 0.2, Baso % (Auto) 1.2 H, Absolute Neuts (auto) 14.8 H, Absolute Lymphs (auto) 5.77 H, Nucleated RBC % 0, Differential Comment SCANNED, Diff Path Review Reviewed, Tear Drop Cells RARE, PT 21.6 H, INR 1.9, Sodium 127 L, Potassium 3.9, Chloride 96 L, Carbon Dioxide 26.0, Anion Gap 5, BUN 34 H, Creatinine 1.51 H, Estim Creat Clear Calc 42.38, Est GFR (MDRD) Af Amer 46 L, Est GFR (MDRD) Non-Af 38 L, BUN/Creatinine Ratio 22.5 H, Glucose 333 H, Calcium 9.5, Phosphorus 3.6, Magnesium 1.9, Total Bilirubin 0.30, AST 16, ALT23, Alkaline Phosphatase 100, Total Creatine Kinase 100, Total Protein 7.1, Albumin 3.7, Globulin 3.4, Albumin/Globulin Ratio 1.1, Urine Color Yellow, UrineClarity Clear, Urine pH 5.0, Ur Specific [place] 1.015, Urine Protein 30 H, Urine Glucose (UA) 1000 H, Urine Ketones Negative, Urine Occult Blood 10 H, Urine Nitrite Negative, Urine Bilirubin Negative, Urine Urobilinogen Normal, Ur Leukocyte Esterase Negative, Urine RBC 0-5 SEEN, Urine WBC 0 SEEN, Ur Squamous Epith Cells 0-5 SEEN, Urine Bacteria 0 SEEN, Urine Mucus 0 SEEN 05/15/23 03:30: Procalcitonin 0.05 05/15/23 04:32: MRSA (PCR) Negative 05/15/23 06:43: POC Glucose 336 H 05/15/23 07:35: WBC 18.1 H, RBC 4.44, Hgb 13.4, Hct 40.1, MCV 90.3, MCH 30.2, MCHC 33.4, RDW Std Deviation 46.1 H, RDW Coeff of Edvin 13.9, Plt Count 410, MPV 9.7, Immature Gran % (Auto) 1.600 H, Neut % (Auto) 55.9, Lymph % (Auto) 34.0, [place] % (Auto) 6.3, Eos % (Auto) 1.1, Baso % (Auto) 1.1 H, Absolute Neuts (auto) 10.1 H, Absolute Lymphs (auto) 6.14 H, Nucleated RBC % 0, Differential Comment SCANNED, PT 25.8 H, INR 2.3, Sodium 136, Potassium 3.4 L, Chloride 105, Carbon Dioxide 23.0, Anion Gap 8, BUN 25 H, Creatinine 0.95, Estim Creat Clear Calc 64.85, Est GFR (MDRD) Af Amer 80, Est GFR (MDRD) Non-Af 66, BUN/Creatinine Ratio 26.4 H, Glucose 255 H, Calcium 8.7, Total Bilirubin 0.40, AST 15, ALT 20, Alkaline Phosphatase 84, Total Protein 6.1 L, Albumin 3.2, Globulin 2.9, Albumin/Globulin Ratio 1.1 05/15/23 11:22: POC Glucose 227 H Micro: Microbiology 05/15/23 05:55 Mucosa - Nose Coronavirus COVID-19 PCR - Final 05/15/23 05:55 Mucosa - Nose Respiratory Panel (PCR) - Final 05/15/23 04:50 Urine, Random Legionella Antigen - Final 05/15/23 04:50 Urine, Random Streptococcus pneumoniae Antigen (M - Final 05/15/23 01:05 Nasal Secretion SARS-CoV-2 & FLU Antigen (Rapid) - Final Radiography Diagnostic Testing: Radiology Impression Chest X-Ray 05/15/23 01:20 IMPRESSION: No radiographic evidence of acute cardiopulmonary disease. Electronically Signed: Saida Jose MD at 1:49 EST , Chest/Abdomen/Pelvis CT 05/15/23 01:47 IMPRESSION: 1. Bilateral lower lobe airspace disease suggests multifocal pneumonia. 2. No CT evidence of acute intra-abdominal disease. Electronically Signed: Saida Jose MD at 2:44 EST , Rhythm Strip Rhythm Strip: Sinus Rhythm Rate: 68 Ectopy: None Physical Exam Const alert and oriented x3 Constitutional Narrative: frail, weak HEENT normocephalic and head/scalp atraumatic Mouth: dry mucous membranes Eyes PERRL and EOMs intact bilaterally Neck no lymphadenopathy and supple Lymph Lymphatic: no lymphadenopathy noted and no lymphedema noted Resp normal respiratory effort, normal air movement and clear to auscultation bilaterally Cardio regular rate, regular rhythm, S1 normal heart sound, S2 normal heart sound and no murmurs GI normal to inspection, nondistended, normoactive bowel sounds, soft to palpation,non-tender and non-distended Extremity normal capillary refill, no clubbing, cyanosis or edema and no calf tenderness General Extremity: no tenderness to palpation of joints or extremities Skin General Skin Exam: no breakdown Neuro CN's II-XII intact bilaterally, no focal motor deficits, no sensory deficits noted and deep tendon reflexes 2+ bilaterally Motor Exam: strength 5/5 throughout and general weakness Psych thought process normal and cooperative Appearance: appropriate Assessment & Plan Assessment/Plan (1) Multifocal pneumonia: (2) Acute hyponatremia: (3) Diarrhea: (4) DAVID (acute kidney injury): PLAN: Plan #Bilateral pneumonia * Likely superimposed on recent viral illness. Currently on room air but feels very weak and tired. * On ceftriaxone and azithromycin. * Breathing treatments bronchodilators. Urine for strep and Legionella negative. COVID both PCR and antigen test negative. Flu test negative * titrate oxygen if needed to maintain sats >90% * #DAVID: Likely due to diarrhea. Creatinine was 1.51 on admission with a baseline of 0.6. Hydrate gently with IV fluids and monitor. #Hyponatremia: Sodium was 127 on admission which was thought to be due to dehydration. Being hydrated with IV fluids and will monitor sodium. Sodium this morning is 136. 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 Also on Plavix. Target INR is between 2 and 3. INR is 2.3 #Hypokalemia: Potassium is 3.4 this morning. Will replace and trend. #Hypertension: IV hydralazine as needed. Valsartan on hold due to DAVID. #Hyperlipidemia: On statin #Type 2 diabetes mellitus with hyperglycemia: Insulin sliding scale. Checks ACHS. All meds held on admission. #GERD: PPI #DONAVAN: On CPAP nightly. #Depression: On escitalopram and bupropion #DVT prophylaxis: On Coumadin. Monitor INR with target INR of 2-3. Charges/Coding Visit Charges Inpatient E&M: 53494 Subs Hosp L2 05/15/23 1640 <Electronically signed by Shavon Kingsley MD> Shavon Kingsley MD Cosigner Signature (if applicable): CC: ~ Signed [facility] Work Phone: 1(210) 225-454112-14-2023 History and physical note Author Leola Bowman [facility] May 15, 2023 3:41am Note Date/Time May 15, 2023 3:10am [facility] Medical Records Department [address] [place] [address] H&P Exam - Hospitalist 05/15/23 0305 MR#: [id number] Acct: [id number] Name: ROGERIO FRIEND Rep #:[id number] : 1970 52 From: Leola Bowman MD PCP: Dr. Shashank Tai MD Status:ADM I N Location[place] [facility] [id number] HPI - General General Date of Admission: 05/15/23 Date of Service: 05/15/23 Chief Complaint: Chills, diaphoresis, dizziness, diarrhea, congestion, cough. HPI Narrative The patient is a 52 y/o F w/ PMHx: Chart reported Hx CVA, Hx DVT, HTN, HLD, Anxiety and Depression, Diabetes mellitus type II, GERD, DONAVAN, Chronic Anemia/Fe deficiency anemia, Hx Aortic thromboembolism, Tobacco use who presents to the [facility] ED on 05/15/23 with history of sinus congestion starting approximately week prior with PCP evaluation with negative COVID, influenza and RSV swab placed on a course of prednisone however she has been worsening with intermittent chills, diaphoresis, dizziness as well as recent onset of severe diarrhea for the last 2to 3 days with increased urinary frequency and an episode of evening urinary incontinence which woke her from sleep the evening prior with fatigue and malaise as well as frontal headache with a mild nonproductive cough prompting eventual ED evaluation. He reports that no one in her immediate family has beenill but she has had some ill contacts at work. Workup in the ED included T97.6,heart rate 78, BP 121/72, respiratory rate 16, 98% on room air, CBC with WBC 23,hemoglobin 14.8, platelet 446 with left shift and lymphocytosis, coags with INR 1.9, PT 21.6, CMP with sodium 127, chloride 96, BUN/creatinine 34/1.51, glucose 333, hepatic profile unremarkable, urinalysis with protein 30, glucose 1000, occult blood 10 otherwise not marked appearing, SARS COVID and influenza antigennegative, chest x-ray with no acute cardiopulmonary findings, CT chest, abdomen and pelvis without contrast with bilateral lower lobe airspace disease suggestive of multifocal pneumonia with otherwise no acute findings. In the ED patient ministered 1 L normal saline as well as Tylenol 650 mg p.o. x 1, IV azithromycin and IV Rocephin. 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 Bruising Chronic cough Contraceptive management Depression Diabetes mellitus DVT (deep venous thrombosis) Easy bruising Excessive bleeding Gastric reflux History of echocardiogram History of kidney stones Injury of head and neck Leg cramps Leukocytosis Menorrhagia with irregular cycle Migraine headache Sleep apnea Smoker Wears dentures Wears glasses Home Medications metformin 500 mg tablet 1,000 mg PO BID diabetes 02/28/14 [History Last Taken 11/26/19 16:00] atorvastatin 40 mg tablet 80 mg PO DAILY cholesterol 11/26/19 [History Last Taken 11/25/19] clopidogrel 75 mg tablet 75 mg PO DAILY 12/14/19 [History Last Taken 07/05/22] warfarin 5 mg tablet 7 mg PO DAILY DVT 12/14/19 [History Last Taken 07/05/22] biotin 5,000 mcg disintegrating tablet 10,000 mcg PO DAILY 04/03/20 [History Last Taken Unknown] pantoprazole 40 mg tablet,delayed release 40 mg PO DAILY 04/03/20 [History Last Taken 07/09/22] doxepin 10 mg capsule 10 mg PO PRN PRN Sleep 12/14/20 [History Last Taken Unknown] escitalopram oxalate 20 mg tablet (Lexapro) 20 mg PO DAILY 12/14/20 [History Last Taken Unknown] bupropion HCl 150 mg tablet,12 hr sustained-release 150 mg PO BID 07/05/22 [History Last Taken Unknown] valsartan 160 mg tablet 160 mg PO DAILY 07/05/22 [History Last Taken 07/09/22] sennosides 8.6 mg-docusate sodium 50 mg tablet (Senexon-S) 1 tab PO BID PRN Constipation 11/25/22 [History Last Taken Unknown] dapagliflozin propanediol 10 mg tablet (Farxiga) 10 mg PO DAILY 05/15/23 [History Last Taken Unknown] Allergy/AdvReac Type Severity Reaction Status Date / Time latex Allergy Mild rash Verified 03/04/23 13:52 Penicillins [PCN] Allergy Hives Verified 03/04/23 13:52 Family History Brother Diabetes Father Diabetes Mother Diabetes Uncle Diabetes Skin cancer Colon cancer Uncle Diabetes Aunt Breast cancer Surgical History H/O lithotripsy H/O tubal ligation History of embolectomy History of esophagogastroduodenoscopy (EGD) Hx of cholecystectomy Hx of partial nephrectomy Status post endometrial ablation Social History (Updated 05/15/23 @ 03:[address] Leola Bowman MD) household members: family current occupational status: employed current occupation: [employer] history of recent travel: No sexually active: No Smoking Status: Current every day smoker tobacco type: cigarettes Smoking packs per day: 0.5 Smoking cigarettes per day: 10.0 alcohol intake: never substance use type: does not use what type of physical activity do you participate in: other seatbelt use: always do you feel safe at home: Yes additional social history: single ROS ROS Narrative Admission Review of Systems: CONSTITUTIONAL: No weight loss, fever, + chills, weakness or fatigue. HEENT: + Congestion, rhinorrhea, headache. Eyes: No visual loss, blurred vision, double vision or yellow sclerae. Ears, Nose, Throat: No hearing loss, sneezing. SKIN: No rash or itching, lesions, wounds. CARDIOVASCULAR: No chest pain, chest pressure or chest discomfort, palpitations, edema, orthopnea, syncopal events. RESPIRATORY: + Mild cough, dyspnea. No marked sputum, wheezing, hemoptysis. GASTROINTESTINAL: + anorexia, diarrhea. No nausea, vomiting, abdominal pain, melena, BRBPR. GENITOURINARY: No dysuria, frequency, urgency or retention. NEUROLOGICAL: + Headache, dizziness, No syncope, paralysis, ataxia, numbness or tingling in the extremities, focal weakness, change in bowel or bladder control, seizure. MUSCULOSKELETAL: + muscle, back pain, joint pain or stiffness. HEMATOLOGIC: + Hx anemia, easy bleeding/bruising. LYMPHATICS: No enlarged nodes. No history of splenectomy. PSYCHIATRIC: + history of depression or anxiety. ENDOCRINOLOGIC: No reports of sweating, cold or heat intolerance. No polyuria or polydipsia. ALLERGIES: + Hx hives. Vital Signs Vital Signs Vital Signs: 05/15/23 00:32 05/15/23 00:32 05/15/23 03:02 Temperature 97.6 F L 98.1 F Temperature Source Temporal Pulse Rate 78 64 Respiratory Rate 16 15 Respiratory Effort Normal Non-Labored Respiratory Pattern Normal Blood Pressure 121/72 H 111/60 Blood Pressure Mean 88 77 Pulse Ox 98 98 Oxygen Delivery Method Room Air 05/15/23 00:52 05/15/23 02:52 Temperature Temperature Source Pulse Rate 69 67 Respiratory Rate 14 16 Respiratory Effort Respiratory Pattern Blood Pressure Blood Pressure Mean Pulse Ox 98 98 Oxygen Delivery Method Room Air Room Air Weight Weight: 187 lb 13.341 oz Body Mass Index (BMI) 29.4 Physical Exam Narrative Physical Examination: General: Awake, alert, oriented x 3 and cooperative, seated upright in the ED bed in no apparent distress, fatigued appearing. Skin: Normal color, normal turgor, no icterus, no cyanosis. HEENT: AT/NC, EOMI, PERRLA, dry MM, no carotid bruits or JVD noted. Lungs: Diffusely diminished, greater bases, appropriate effort, no rales, ronchi or wheezing. Heart: Regular rate and rhythm; no gallop, rub audible. Abdomen: Soft, NTTP, ND, mildly hyperactive BS, no appreciated HSM. Extremities: No cyanosis, clubbing, or edema. Neurological: Patient awake, alert, oriented as noted, cognitive function intact although patient responses are slow but she is fatigued versus possibly baseline; pupils equally reactive to light and accommodation, cranial nerves grossly normal, moving all 4 extremities, no focal deficits, strength moderately globally decreased secondary to acute presentation complaints. Psychiatric: Affect appears flat, fatigued, no acute evidence of depressive or anxiety feelings but does have underlying history. Results Lab / Micro Data 05/15/23 01:05 05/15/23 01:05 Labs: Laboratory Results - last 24 hr 05/15/23 01:05: WBC 23.0 H, RBC 4.85, Hgb 14.8, Hct 43.8, MCV 90.3, MCH 30.5, MCHC 33.8, RDW Std Deviation 45.9 H, RDW Coeff of Edvin 13.8, Plt Count 446, MPV 9.9, Immature Gran % (Auto) 2.400 H, Neut % (Auto) 64.3, Lymph % (Auto) 25.1, [place] % (Auto) 6.8, Eos % (Auto) 0.2, Baso % (Auto) 1.2 H, Absolute Neuts (auto) 14.8 H, Absolute Lymphs (auto) 5.77 H, Nucleated RBC % 0, Differential Comment SCANNED, Diff Path Review May foll, Tear Drop Cells RARE, PT 21.6 H, INR 1.9, Sodium 127 L, Potassium 3.9, Chloride 96 L, Carbon Dioxide 26.0, Anion Gap 5, BUN 34 H, Creatinine 1.51 H, Estim Creat Clear Calc 42.38, Est GFR (MDRD) Af Amer 46 L, Est GFR (MDRD) Non-Af 38 L, BUN/Creatinine Ratio 22.5 H, Glucose 333 H, Calcium 9.5, Total Bilirubin 0.30, AST 16, ALT 23, Alkaline Phosphatase 100, Total Creatine Kinase 100, Total Protein 7.1, Albumin 3.7, Globulin 3.4, Albumin/Globulin Ratio 1.1, Urine Color Yellow, Urine Clarity Clear, Urine pH 5.0, Ur Specific [place] 1.015, Urine Protein 30 H, Urine Glucose (UA) 1000 H, Urine Ketones Negative, Urine Occult Blood 10 H, Urine Nitrite Negative, Urine Bilirubin Negative, Urine Urobilinogen Normal, Ur Leukocyte Esterase Negative, Urine RBC 0-5 SEEN, Urine WBC 0 SEEN, Ur Squamous Epith Cells 0-5 SEEN, Urine Bacteria 0 SEEN, Urine Mucus 0 SEEN Micro: Microbiology 05/15/23 01:05 Nasal Secretion SARS-CoV-2 & FLU Antigen (Rapid) - Final Rhythm Strip Rhythm Strip: Sinus Rhythm Rate: 68 Ectopy: None Imagaing Radiology Impression Chest X-Ray 05/15/23 01:20 IMPRESSION: No radiographic evidence of acute cardiopulmonary disease. Electronically Signed: Saida Jose MD at 1:49 EST , Chest/Abdomen/Pelvis CT 05/15/23 01:47 IMPRESSION: 1. Bilateral lower lobe airspace disease suggests multifocal pneumonia. 2. No CT evidence of acute intra-abdominal disease. Electronically Signed: Saida Jose MD at 2:44 EST , Assessment & Plan Assessment/Plan (1) Multifocal pneumonia: PLAN: Plan The patient is a 52 y/o F w/ PMHx: Chart reported history of CVA, Hx DVT, HTN, HLD, Anxiety and Depression, Diabetes mellitus type II, GERD, DONAVAN, Chronic Anemia/Fe deficiency anemia, Hx Aortic thromboembolism, Tobacco use who presents to the [facility] ED on 05/15/23 with history of sinus congestion starting approximately week prior with PCP evaluation with negative COVID, influenza and RSV swab placed on a course of prednisone however she has been worsening with intermittent chills, diaphoresis, dizziness as well as recent onset of severe diarrhea for the last 2 to 3 days with increased urinary frequency and an episode of evening urinary incontinence which woke her from sleep the evening prior with fatigue and malaise as well as frontal headache with a mild nonproductive cough prompting eventual ED evaluation. #1. Bilateral multifocal pneumonia possibly bacterial superimposed on recent acute viral illness: Will admit to MS, maintain on oxygen with wean as tolerated to room air, PRN albuterol, maintained on IV Rocephin and Azithromycin, HOB, IS parameters w/ pending sputum cultures, full respiratory viral panel, procalcitonin, COVID PCR and urine antigens, stool enteric also requested. Of note patient recently on steroids thus unclear if leukocytosis is related primarily to this. #2. Acute kidney injury: Secondary to GI losses. Admission BUN/Cr 34/1.51, prior baseline creatinine noted to be primarily 0.6. Will hydrate, hold nephrotoxic medications and repeat chemistry in AM. If no improvement would plan FeNa assessment. #3. Hyponatremia, hypochloremia, hypovolemic: Admission sodium 127, chloride 96, given GI losses presumed hypovolemic, continue aggressive hydration with repeat CMP in AM. #4. History of VTE, history aortic thromboembolism: We will continue patient home Coumadin, Plavix with INR trending. #5. Hypertension: Holding home ARB given DAVID, PRN hydralazine. #6. Hyperlipidemia: We will continue patient on statin therapy. #7. Diabetes mellitus type II with hyperglycemia: Admission glucose notably elevated 333 in the setting of acute illness, hold oral home regimen, ADA diet, accu checks w/ ISS. #8. Anxiety and depression: We will continue patient home escitalopram, bupropion and doxepin at home regimen. #9. Chart reported History CVA: Unclear if true diagnosis, patient denies deficits, potential prior evaluation and work-up. MRI imaging noted 11/27/19 with no noted MRI evidence of CVA pr prior at that time. We will continue patient home Plavix, Coumadin with INR trending, statin therapy, holding hypertensive regimen given DAVID, resume once appropriate, holding oral diabetic regimen with adjustments as noted. #10. GERD: We will continue patient on PPI. #11. DONAVAN: CPAP nightly. #12. DVT prophylaxis: Continue patient home Coumadin with INR trending. Charges/Coding Visit Charges Inpatient E&M: 33759 Init Hosp L3 05/15/23 0341 <Electronically signed by Leola Bowman MD> Cosigner Signature (if applicable): CC: Dr. Leola Bowman MD; Dr. Shashank Tai MD~ Signed [facility] Work Phone: 1(874) 653-673712-14-2023 Discharge summary Author Estefany [facility] May 15, 2023 3:39am Note Date/Time May 15, 2023 12:58am [facility] Medical Records Department [address] [place] [id number] Emergency Department Summary 05/15/23 MR#: [id number] Acct: [id number] Name: ROGERIO FRIEND Rep #:[id number] : 1970 52 From: Estefany Marquez PCP: Dr. Shashank Tai MD Status:ADM I N Location: [place] [address] HPI History of Present Illness Chief Complaint: General Illness Narrative Narrative: Patient is a 52-year-old female with history of long-term Coumadin therapy, GERD, diabetes mellitus, migraines, anxiety and depression presenting with generalized malaise. Patient states she started with sinus congestion about a week ago. She saw her PCP for shortly after the symptoms started and had a negative COVID, flu and RSV swab. She was placed on a course of prednisone. She states she is getting worse. She notes she is having intermittent hot and cold episodes and she feels clammy. During this episode she does feel dizzy. She has developed pretty severe diarrhea. States anytime she eats it goes rightthrough her. States the diarrhea is particularly bad yesterday. This been going on for 2 to 3 days. She also notes that she has had increased urination frequency. She had an episode of urinary incontinence which woke her from sleepthe other night. That is new for her. She has been drinking more fluids. She notes her legs feel like rubber. She states she aches all over. She is has what she describes as a sinus headache. She also notes that she has had a coughthat been mild and nonproductive. She has been taking Aleve for her symptoms. She denies any chest pain but notes that she does get some sternal pain with coughing. She notes she had to leave work today because she was feeling so ill which is what triggered her to come to the emergency room. Seen blood in her stool. She denies any history of C. difficile. No other complaints at this time. 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 Bruising Chronic cough Contraceptive management Depression Diabetes mellitus DVT (deep venous thrombosis) Easy bruising Excessive bleeding Gastric reflux History of echocardiogram History of kidney stones Injury of head and neck Leg cramps Leukocytosis Menorrhagia with irregular cycle Migraine headache Sleep apnea Smoker Wears dentures Wears glasses Home Medications metformin 500 mg tablet 1,000 mg PO BID diabetes 02/28/14 [History Last Taken 11/26/19 16:00] atorvastatin 40 mg tablet 80 mg PO DAILY cholesterol 11/26/19 [History Last Taken 11/25/19] clopidogrel 75 mg tablet 75 mg PO DAILY 12/14/19 [History Last Taken 07/05/22] warfarin 5 mg tablet 7 mg PO DAILY DVT 12/14/19 [History Last Taken 07/05/22] biotin 5,000 mcg disintegrating tablet 10,000 mcg PO DAILY 04/03/20 [History Last Taken Unknown] pantoprazole 40 mg tablet,delayed release 40 mg PO DAILY 04/03/20 [History Last Taken 07/09/22] doxepin 10 mg capsule 10 mg PO PRN PRN Sleep 12/14/20 [History Last Taken Unknown] escitalopram oxalate 20 mg tablet (Lexapro) 20 mg PO DAILY 12/14/20 [History Last Taken Unknown] bupropion HCl 150 mg tablet,12 hr sustained-release 150 mg PO BID 07/05/22 [History Last Taken Unknown] valsartan 160 mg tablet 160 mg PO DAILY 07/05/22 [History Last Taken 07/09/22] sennosides 8.6 mg-docusate sodium 50 mg tablet (Senexon-S) 1 tab PO BID PRN Constipation 11/25/22 [History Last Taken Unknown] dapagliflozin propanediol 10 mg tablet (Farxiga) 10 mg PO DAILY 05/15/23 [History Last Taken Unknown] Allergy/AdvReac Type Severity Reaction Status Date / Time latex Allergy Mild rash Verified 03/04/23 13:52 Penicillins [PCN] Allergy Hives Verified 03/04/23 13:52 Family History Brother Diabetes Father Diabetes Mother Diabetes Uncle Diabetes Skin cancer Colon cancer Uncle Diabetes Aunt Breast cancer Surgical History H/O lithotripsy H/O tubal ligation History of embolectomy History of esophagogastroduodenoscopy (EGD) Hx of cholecystectomy Hx of partial nephrectomy Status post endometrial ablation Social History (Updated 05/15/23 @ 03:[address] Leola Bowman MD) household members: family current occupational status: employed current occupation: [employer] history of recent travel: No sexually active: No Smoking Status: Current every day smoker tobacco type: cigarettes Smoking packs per day: 0.5 Smoking cigarettes per day: 10.0 alcohol intake: never substance use type: does not use what type of physical activity do you participate in: other seatbelt use: always do you feel safe at home: Yes additional social history: single ROS ROS ED Constitutional Constitutional ED: Reports chills and sweats; Denies fever(s) Eyes Eyes: Denies change in vision ENT ENT ED: Reports other Details: nasal congestion ; Denies sore throat Cardiovascular Cardiovascular: Reports chest pain and other Details: with coughing Respiratory/Chest Respiratory/Chest: Reports cough; Denies dyspnea Gastrointestinal Gastrointestinal: Reports abdominal pain, diarrhea and nausea Genitourinary Genitourinary ED: Reports urinary frequency; Denies dysuria or hematuria Musculoskeletal Musculoskeletal: Reports myalgias; Denies arthralgias Integumentary Denies rash Neurologic Neurologic: Reports headache(s) and weakness; Denies paresthesias Hematologic/Lymphatic Hematologic/Lymphatic: Reports easy bleeding EXAM Physical Exam Const Vital Signs: 05/15/23 00:32 05/15/23 00:32 05/15/23 03:02 Temperature 97.6 F L 98.1 F Temperature Source Temporal Pulse Rate 78 64 Respiratory Rate 16 15 Respiratory Effort Normal Non-Labored Respiratory Pattern Normal Blood Pressure 121/72 H 111/60 Blood Pressure Mean 88 77 Pulse Ox 98 98 Oxygen Delivery Method Room Air 05/15/23 00:52 05/15/23 02:52 Temperature Temperature Source Pulse Rate 69 67 Respiratory Rate 14 16 Respiratory Effort Respiratory Pattern Blood Pressure Blood Pressure Mean Pulse Ox 98 98 Oxygen Delivery Method Room Air Room Air Positive well nourished and well developed Constitutional Narrative: Non-toxic but ill-appearing General Appearance ED: well developed and NAD HEENT Reports moist mucous membranes Eyes PERRL and EOMs intact bilaterally Neck supple Chest Wall inspection of chest normal and palpation of chest normal Resp normal respiratory effort Resp Narrative: Mild rhonchi noted at the right base Auscultation: Negative for rales, wheezes or diminished lung sounds Cardio regular rate, regular rhythm and no murmurs GI normal to inspection, nondistended, normoactive bowel sounds and non-tender Back/Spine no CVA tenderness Neuro oriented x3 Sensorium / Orientation: alert Motor Exam: general weakness Psych mental status grossly normal Skin no rashes or lesions noted and no wounds MDM MDM MDM Narrative Medical decision making narrative: Patient is evaluated for 1 week of flulike symptoms. She says that she is a pretty significant diarrhea over the past few days. Will check lab work including CBC, CMP, urinalysis as well as a chest x-ray and obtain EKG looking for COVID infection. Will repeat COVID and flu swab as she was negative a couple days ago but her symptoms have progressed. Patient is given IV fluids and Tylenol for symptoms in the ER. She has a significant leukocytosis of 23 with a left shift. This could be confounded by her recent steroids however. INR slightly subtherapeutic at 1.9. Patient does have hyponatremia with a sodium of 127 which I feel to be acute and she also has an DAVID. Her baseline creatinine is 0.69 and today is 1.51. She is hyperglycemic with a glucose of 333 however she has a history of diabetes and has been on steroids. She has a normal anion gap I do not suspect DKA. Urinalysis is not consistent with infection but does show glucose urea. Given patient's vague abdominal discomfort, significant diarrhea with this leukocytosis will obtain a CT of the abdomen pelvis. As she has had a mild cough we will add on a chest as well to look for more severe infectious symptoms. Will also order stool studies in case this is C. difficile or other infectious colitis. Discussed with patient that I would recommend admission given her hyponatremia, DAVID and the severity of her symptoms. She is agreeable. CT did show multifocal pneumonia. Patient is placed on broad-spectrum antibiotics Rocephin and azithromycin. Case discussed with hospitalist, Dr. Bowman for admission. Lab Data Attestation: I reviewed the patient's lab results. Labs: Laboratory Results - last 24 hr 05/15/23 01:05 WBC 23.0 H RBC 4.85 Hgb 14.8 Hct 43.8 MCV 90.3 MCH 30.5 MCHC 33.8 RDW Std Deviation 45.9 H RDW Coeff of Edvin 13.8 Plt Count 446 MPV 9.9 Immature Gran % (Auto) 2.400 H Neut % (Auto) 64.3 Lymph % (Auto) 25.1 [place] % (Auto) 6.8 Eos % (Auto) 0.2 Baso % (Auto) 1.2 H Absolute Neuts (auto) 14.8 H Absolute Lymphs (auto) 5.77 H Nucleated RBC % 0 Differential Comment SCANNED Diff Path Review May foll Tear Drop Cells RARE PT 21.6 H INR 1.9 Sodium 127 L Potassium 3.9 Chloride 96 L Carbon Dioxide 26.0 Anion Gap 5 BUN 34 H Creatinine 1.51 H Estim Creat Clear Calc 42.38 Est GFR (MDRD) Af Amer 46 L Est GFR (MDRD) Non-Af 38 L BUN/Creatinine Ratio 22.5 H Glucose 333 H Calcium 9.5 Total Bilirubin 0.30 AST 16 ALT 23 Alkaline Phosphatase 100 Total Creatine Kinase 100 Total Protein 7.1 Albumin 3.7 Globulin 3.4 Albumin/Globulin Ratio 1.1 Urine Color Yellow Urine Clarity Clear Urine pH 5.0 Ur Specific [place] 1.015 Urine Protein 30 H Urine Glucose (UA) 1000 H Urine Ketones Negative Urine Occult Blood 10 H Urine Nitrite Negative Urine Bilirubin Negative Urine Urobilinogen Normal Ur Leukocyte Esterase Negative Urine RBC 0-5 SEEN Urine WBC 0 SEEN Ur Squamous Epith Cells 0-5 SEEN Urine Bacteria 0 SEEN Urine Mucus 0 SEEN Radiography Chest X-Ray - ED: 2 View, Read by ED Physician, Read by Radiologist and No Acute Disease Diagnostic Testing: Clinical Impression(s) from Imaging Studies Chest X-Ray 05/15/23 01:20 IMPRESSION: No radiographic evidence of acute cardiopulmonary disease. Electronically Signed: Saida Jose MD at 1:49 EST , Chest/Abdomen/Pelvis CT 05/15/23 01:47 IMPRESSION: 1. Bilateral lower lobe airspace disease suggests multifocal pneumonia. 2. No CT evidence of acute intra-abdominal disease. Electronically Signed: Saida Jose MD at 2:44 EST , Rhythm Strip Rhythm Strip: Sinus Rhythm Rate: 68 Ectopy: None EKG Initial EKG: Attestation: I personally reviewed and interpreted this EKG as follows: Interpretation: Sinus Rhythm Comments: Normal sinus rhythm at a rate of 68 bpm Normal axis Normal intervals Normal ST segments Discharge Plan Dx/Rx/DC Orders Clinical Impression: DAVID (acute kidney injury), Diarrhea, Acute hyponatremia, Multifocal pneumonia Disposition Disposition: Acute Care Hospital [facility] What to do if you have Problems For any increased pain, shortness of breath, bleeding, nausea or vomiting, chest pain, or any unexpected problems, contact your Primary Care Provider. Call [facility] ([phone]) or report to the closest Emergency Room. Call 911 if necessary. 05/15/23 0339 <Electronically signed by Estefany Soriano DO> Cosigner Signature (if applicable): CC: Dr. Shashank Tai MD ~ Signed [facility] Work Phone: 1([phone]) 218-360312-14-2023 Discharge summary [facility] 3:39am Note Date/Time May 15, 2023 12:58am [facility] Medical Records Department [address] [place] [address] Emergency Department Summary 05/15/23 MR#: [id number] Acct: [id number] Name: ROGERIO FRIEND Rep #:[id number] : 1970 52 From: Estefany Marquez PCP: Dr. Shashank Tai MD Status:ADM I N Location[id number] HPI History of Present Illness Chief Complaint: General Illness Narrative Narrative: Patient is a 52-year-old female with history of long-term Coumadin therapy, GERD, diabetes mellitus, migraines, anxiety and depression presenting with generalized malaise. Patient states she started with sinus congestion about a week ago. She saw her PCP for shortly after the symptoms started and had a negative COVID, flu and RSV swab. She was placed on a course of prednisone. She states she is getting worse. She notes she is having intermittent hot and cold episodes and she feels clammy. During this episode she does feel dizzy. She has developed pretty severe diarrhea. States anytime she eats it goes rightthrough her. States the diarrhea is particularly bad yesterday. This been going on for 2 to 3 days. She also notes that she has had increased urination frequency. She had an episode of urinary incontinence which woke her from sleepthe other night. That is new for her. She has been drinking more fluids. She notes her legs feel like rubber. She states she aches all over. She is has what she describes as a sinus headache. She also notes that she has had a coughthat been mild and nonproductive. She has been taking Aleve for her symptoms. She denies any chest pain but notes that she does get some sternal pain with coughing. She notes she had to leave work today because she was feeling so ill which is what triggered her to come to the emergency room. Seen blood in her stool. She denies any history of C. difficile. No other complaints at this time. 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 Bruising Chronic cough Contraceptive management Depression Diabetes mellitus DVT (deep venous thrombosis) Easy bruising Excessive bleeding Gastric reflux History of echocardiogram History of kidney stones Injury of head and neck Leg cramps Leukocytosis Menorrhagia with irregular cycle Migraine headache Sleep apnea Smoker Wears dentures Wears glasses Home Medications metformin 500 mg tablet 1,000 mg PO BID diabetes 02/28/14 [History Last Taken 11/26/19 16:00] atorvastatin 40 mg tablet 80 mg PO DAILY cholesterol 11/26/19 [History Last Taken 11/25/19] clopidogrel 75 mg tablet 75 mg PO DAILY 12/14/19 [History Last Taken 07/05/22] warfarin 5 mg tablet 7 mg PO DAILY DVT 12/14/19 [History Last Taken 07/05/22] biotin 5,000 mcg disintegrating tablet 10,000 mcg PO DAILY 04/03/20 [History Last Taken Unknown] pantoprazole 40 mg tablet,delayed release 40 mg PO DAILY 04/03/20 [History Last Taken 07/09/22] doxepin 10 mg capsule 10 mg PO PRN PRN Sleep 12/14/20 [History Last Taken Unknown] escitalopram oxalate 20 mg tablet (Lexapro) 20 mg PO DAILY 12/14/20 [History Last Taken Unknown] bupropion HCl 150 mg tablet,12 hr sustained-release 150 mg PO BID 07/05/22 [History Last Taken Unknown] valsartan 160 mg tablet 160 mg PO DAILY 07/05/22 [History Last Taken 07/09/22] sennosides 8.6 mg-docusate sodium 50 mg tablet (Senexon-S) 1 tab PO BID PRN Constipation 11/25/22 [History Last Taken Unknown] dapagliflozin propanediol 10 mg tablet (Farxiga) 10 mg PO DAILY 05/15/23 [History Last Taken Unknown] Allergy/AdvReac Type Severity Reaction Status Date / Time latex Allergy Mild rash Verified 03/04/23 13:52 Penicillins [PCN] Allergy Hives Verified 03/04/23 13:52 Family History Brother Diabetes Father Diabetes Mother Diabetes Uncle Diabetes Skin cancer Colon cancer Uncle Diabetes Aunt Breast cancer Surgical History H/O lithotripsy H/O tubal ligation History of embolectomy History of esophagogastroduodenoscopy (EGD) Hx of cholecystectomy Hx of partial nephrectomy Status post endometrial ablation Social History (Updated 05/15/23 @ 03:[address] Leola Bowman MD) household members: family current occupational status: employed current occupation: [employer] history of recent travel: No sexually active: No Smoking Status: Current every day smoker tobacco type: cigarettes Smoking packs per day: 0.5 Smoking cigarettes per day: 10.0 alcohol intake: never substance use type: does not use what type of physical activity do you participate in: other seatbelt use: always do you feel safe at home: Yes additional social history: single ROS ROS ED Constitutional Constitutional ED: Reports chills and sweats; Denies fever(s) Eyes Eyes: Denies change in vision ENT ENT ED: Reports other Details: nasal congestion ; Denies sore throat Cardiovascular Cardiovascular: Reports chest pain and other Details: with coughing Respiratory/Chest Respiratory/Chest: Reports cough; Denies dyspnea Gastrointestinal Gastrointestinal: Reports abdominal pain, diarrhea and nausea Genitourinary Genitourinary ED: Reports urinary frequency; Denies dysuria or hematuria Musculoskeletal Musculoskeletal: Reports myalgias; Denies arthralgias Integumentary Denies rash Neurologic Neurologic: Reports headache(s) and weakness; Denies paresthesias Hematologic/Lymphatic Hematologic/Lymphatic: Reports easy bleeding EXAM Physical Exam Const Vital Signs: 05/15/23 00:32 05/15/23 00:32 05/15/23 03:02 Temperature 97.6 F L 98.1 F Temperature Source Temporal Pulse Rate 78 64 Respiratory Rate 16 15 Respiratory Effort Normal Non-Labored Respiratory Pattern Normal Blood Pressure 121/72 H 111/60 Blood Pressure Mean 88 77 Pulse Ox 98 98 Oxygen Delivery Method Room Air 05/15/23 00:52 05/15/23 02:52 Temperature Temperature Source Pulse Rate 69 67 Respiratory Rate 14 16 Respiratory Effort Respiratory Pattern Blood Pressure Blood Pressure Mean Pulse Ox 98 98 Oxygen Delivery Method Room Air Room Air Positive well nourished and well developed Constitutional Narrative: Non-toxic but ill-appearing General Appearance ED: well developed and NAD HEENT Reports moist mucous membranes Eyes PERRL and EOMs intact bilaterally Neck supple Chest Wall inspection of chest normal and palpation of chest normal Resp normal respiratory effort Resp Narrative: Mild rhonchi noted at the right base Auscultation: Negative for rales, wheezes or diminished lung sounds Cardio regular rate, regular rhythm and no murmurs GI normal to inspection, nondistended, normoactive bowel sounds and non-tender Back/Spine no CVA tenderness Neuro oriented x3 Sensorium / Orientation: alert Motor Exam: general weakness Psych mental status grossly normal Skin no rashes or lesions noted and no wounds MDM MDM MDM Narrative Medical decision making narrative: Patient is evaluated for 1 week of flulike symptoms. She says that she is a pretty significant diarrhea over the past few days. Will check lab work including CBC, CMP, urinalysis as well as a chest x-ray and obtain EKG looking for COVID infection. Will repeat COVID and flu swab as she was negative a couple days ago but her symptoms have progressed. Patient is given IV fluids and Tylenol for symptoms in the ER. She has a significant leukocytosis of 23 with a left shift. This could be confounded by her recent steroids however. INR slightly subtherapeutic at 1.9. Patient does have hyponatremia with a sodium of 127 which I feel to be acute and she also has an DAVID. Her baseline creatinine is 0.69 and today is 1.51. She is hyperglycemic with a glucose of 333 however she has a history of diabetes and has been on steroids. She has a normal anion gap I do not suspect DKA. Urinalysis is not consistent with infection but does show glucose urea. Given patient's vague abdominal discomfort, significant diarrhea with this leukocytosis will obtain a CT of the abdomen pelvis. As she has had a mild cough we will add on a chest as well to look for more severe infectious symptoms. Will also order stool studies in case this is C. difficile or other infectious colitis. Discussed with patient that I would recommend admission given her hyponatremia, DAVID and the severity of her symptoms. She is agreeable. CT did show multifocal pneumonia. Patient is placed on broad-spectrum antibiotics Rocephin and azithromycin. Case discussed with hospitalist, Dr. Bowman for admission. Lab Data Attestation: I reviewed the patient's lab results. Labs: Laboratory Results - last 24 hr 05/15/23 01:05 WBC 23.0 H RBC 4.85 Hgb 14.8 Hct 43.8 MCV 90.3 MCH 30.5 MCHC 33.8 RDW Std Deviation 45.9 H RDW Coeff of Edvin 13.8 Plt Count 446 MPV 9.9 Immature Gran % (Auto) 2.400 H Neut % (Auto) 64.3 Lymph % (Auto) 25.1 [place] % (Auto) 6.8 Eos % (Auto) 0.2 Baso % (Auto) 1.2 H Absolute Neuts (auto) 14.8 H Absolute Lymphs (auto) 5.77 H Nucleated RBC % 0 Differential Comment SCANNED Diff Path Review May foll Tear Drop Cells RARE PT 21.6 H INR 1.9 Sodium 127 L Potassium 3.9 Chloride 96 L Carbon Dioxide 26.0 Anion Gap 5 BUN 34 H Creatinine 1.51 H Estim Creat Clear Calc 42.38 Est GFR (MDRD) Af Amer 46 L Est GFR (MDRD) Non-Af 38 L BUN/Creatinine Ratio 22.5 H Glucose 333 H Calcium 9.5 Total Bilirubin 0.30 AST 16 ALT 23 Alkaline Phosphatase 100 Total Creatine Kinase 100 Total Protein 7.1 Albumin 3.7 Globulin 3.4 Albumin/Globulin Ratio 1.1 Urine Color Yellow Urine Clarity Clear Urine pH 5.0 Ur Specific [place] 1.015 Urine Protein 30 H Urine Glucose (UA) 1000 H Urine Ketones Negative Urine Occult Blood 10 H Urine Nitrite Negative Urine Bilirubin Negative Urine Urobilinogen Normal Ur Leukocyte Esterase Negative Urine RBC 0-5 SEEN Urine WBC 0 SEEN Ur Squamous Epith Cells 0-5 SEEN Urine Bacteria 0 SEEN Urine Mucus 0 SEEN Radiography Chest X-Ray - ED: 2 View, Read by ED Physician, Read by Radiologist and No Acute Disease Diagnostic Testing: Clinical Impression(s) from Imaging Studies Chest X-Ray 05/15/23 01:20 IMPRESSION: No radiographic evidence of acute cardiopulmonary disease. Electronically Signed: Saida Jose MD at 1:49 EST Reading Location ID and State: [address] [place] [address] , Service support , Chest/Abdomen/Pelvis CT 05/15/23 01:47 IMPRESSION: 1. Bilateral lower lobe airspace disease suggests multifocal pneumonia. 2. No CT evidence of acute intra-abdominal disease. Electronically Signed: Saida Jose MD at 2:44 EST , Rhythm Strip Rhythm Strip: Sinus Rhythm Rate: 68 Ectopy: None EKG Initial EKG: Attestation: I personally reviewed and interpreted this EKG as follows: Interpretation: Sinus Rhythm Comments: Normal sinus rhythm at a rate of 68 bpm Normal axis Normal intervals Normal ST segments Discharge Plan Dx/Rx/DC Orders Clinical Impression: DAVID (acute kidney injury), Diarrhea, Acute hyponatremia, Multifocal pneumonia Disposition Disposition: Acute Care Hospital [facility] What to do if you have Problems For any increased pain, shortness of breath, bleeding, nausea or vomiting, chest pain, or any unexpected problems, contact your Primary Care Provider. Call [facility] ([phone]) or report to the closest Emergency Room. Call 911 if necessary. 05/15/23 0339 <Electronically signed by Estefany Soriano DO> Cosigner Signature (if applicable): CC: Dr. Shashank Tai MD ~ Signed [facility] Work Phone: [phone]) 409-293509-09-2023 Discharge summary Author Todd Sage [facility] February 08, 2023 8:37pm Note Date/Time February 08, 2023 7:58pm [facility] Medical Records Department [address] [place] [id number] Emergency Department Summary 02/08/23 MR#: [id number] Acct: [id number] Name: ROGERIO FRIEND Rep #:[id number] : 1970 52 From: Todd Sage MD PCP: Dr. 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 Patient noticed that there was some redness, swellingover the last week and has been more painful. She does have an abrasion to the bottom of her elbow. Patient denies any fever or chills. Patient is having worsening swelling pain having difficulty flexing and extending. 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 Bruising Chronic cough Contraceptive management Depression Diabetes mellitus DVT (deep venous thrombosis) Easy bruising Excessive bleeding Gastric reflux History of echocardiogram History of kidney stones Injury of head and neck Leg cramps Leukocytosis Menorrhagia with irregular cycle Migraine headache Sleep apnea Smoker Wears dentures Wears glasses Home Medications metformin 500 mg tablet 1,000 mg PO BID diabetes 02/28/14 [History Last Taken 11/26/19 16:00] atorvastatin 40 mg tablet 80 mg PO DAILY cholesterol 11/26/19 [History Last Taken 11/25/19] clopidogrel 75 mg tablet 75 mg PO DAILY 12/14/19 [History Last Taken 07/05/22] warfarin 5 mg tablet 7 mg PO DAILY DVT 12/14/19 [History Last Taken 07/05/22] biotin 5,000 mcg disintegrating tablet 5,000 mcg PO DAILY 04/03/20 [History Last Taken Unknown] pantoprazole 40 mg tablet,delayed release 40 mg PO DAILY 04/03/20 [History Last Taken 07/09/22] doxepin 10 mg capsule 10 mg PO PRN PRN Sleep 12/14/20 [History Last Taken Unknown] escitalopram oxalate 20 mg tablet (Lexapro) 20 mg PO DAILY 12/14/20 [History Last Taken Unknown] bupropion HCl 150 mg tablet,12 hr sustained-release 150 mg PO BID 07/05/22 [History Last Taken Unknown] valsartan 160 mg tablet 160 mg PO DAILY 07/05/22 [History Last Taken 07/09/22] naproxen 500 mg tablet 500 mg PO PRN PRN Pain #30 tabs 07/23/22 [Rx Last Taken Unknown] polysaccharide iron complex 150 mg iron capsule See Rx Instructions .Route .COMPLEX #180 caps 09/02/22 [Rx Last Taken Unknown] sennosides 8.6 mg-docusate sodium 50 mg tablet (Senexon-S) 1 tab PO BID PRN Constipation 11/25/22 [History Last Taken Unknown] clindamycin HCl 300 mg capsule 300 mg PO Q8H 10 days #30 caps 02/08/23 [Rx Last Taken Unknown] oxycodone-acetaminophen 5 mg-325 mg tablet (Percocet) 1 tab PO Q8H PRN pain 3 days #10 tabs 02/08/23 [Rx Last Taken Unknown] Allergy/AdvReac Type Severity Reaction Status Date / Time latex Allergy Mild rash Verified 02/08/23 19:16 Penicillins [PCN] Allergy Hives Verified 02/08/23 19:16 Family History Brother Diabetes Father Diabetes Mother Diabetes Uncle Diabetes Skin cancer Colon cancer Uncle Diabetes Aunt Breast cancer Surgical History H/O lithotripsy H/O tubal ligation History of embolectomy History of esophagogastroduodenoscopy (EGD) Hx of cholecystectomy Hx of partial nephrectomy Status post endometrial ablation Social History household members: family current occupational status: employed current occupation: [employer] history of recent travel: No sexually active: No Smoking Status: Current every day smoker tobacco type: cigarettes alcohol intake: never substance use type: does not use what type of physical activity do you participate in: other seatbelt use: always do you feel safe at home: Yes additional social history: single ROS <ANA Mishra - Last Filed: 02/08/23 20:35> ROS ED ROS Narrative Constitutional: Negative for fever, chills, weight loss, weakness Eyes: Negative for vision loss, vision change, double vision ENT: Negative for any sore throat, ear pain, congestion Cardiovascular: Negative for any chest pain, tightness, palpitations Respiratory: Negative for any cough, sputum production, hemoptysis, dyspnea, dyspnea on exertion, orthopnea Gastrointestinal: Negative for any abdominal pain, nausea, vomiting, diarrhea, constipation, blood in stool, blood in vomit : Negative for any urinary frequency, dysuria, retention, blood in urine Muscle skeletal: Negative for any muscle joint pain, stiffness, myalgias, arthralgias, neck pain, back pain. Positive left elbow pain, left elbow redness Neurological: Negative for any headache, syncope, numbness or tingling, dizziness Skin: Negative for any rashes, lumps, itching, abrasions, lacerations Psychiatric: Negative for any depression, anxiety, stress, suicidal ideation, homicidal ideation Hematologic: Negative for any easy bruising, excessive bruising, easy bleeding Allergies: Negative for any eczema, hives, rash EXAM <ANA Mishra - Last Filed: 02/08/23 20:35> Physical Exam Narrative Exam Narrative: Vital signs reviewed. HEET: Head normocephalic atraumatic, TMs clear bilaterally. Posterior pharynx is clear, moist mucous membranes. Nares clear bilaterally. Neck: Supple with no lymphadenopathy or tenderness. No signs of meningismus, negative jolt sign. Cardiac: Regular rate and rhythm no murmurs gallops or rubs, equal peripheral pulses bilaterally. Respiratory: Lungs clear to auscultation bilaterally. No chest tenderness. Abdomen: Soft, nontender, nondistended. No abdominal bruit or pulsatile masses. No hepatosplenomegaly Extremities: Patient does have some erythema, edema to the left elbow along olecranon process. There is a scabbed abrasion. Patient is able to flex and extend however full extension and full flexion does cause discomfort. Patient has no pain with supination or pronation. +2 radial pulse. Patient has full range of motion of the hand, no pain or significant swelling. No signs of trauma. Neuro: Cranial nerves II through XII intact, no focal neurological deficits. Skin: Clean dry and intact with no rash, purpura, petechiae, vesicles or pustules. Backs/flank: No CVA tenderness, no midline spinal tenderness, no deformity. Psych: Normal mood and affect. No SI, HI or acute psychosis. Const Vital Signs: 02/08/23 19:14 Temperature 98 F Temperature Source Temporal Pulse Rate 80 Respiratory Rate 16 Blood Pressure 152/80 H Blood Pressure Mean 104 Pulse Ox 98 Oxygen Delivery Method Room Air [facility] <ANA Mishra - Last Filed: 02/08/23 20:35> [facility] Treatment and Re-Evaluation Narrative: All radiologic examinations were read, reviewed by the emergency department attending. From these reads, a plan of care will be put in place. Patient presents to the emergency department with left elbow pain, redness. There is concern for septic bursitis. The attending did reach out to the on-call orthopedic surgeon. The attending will anesthetize the area, and drain the joint. Patient received x-rays of the left elbow, these were unremarkable. Patient was given oral Percocet, oral clindamycin. Patient be given both of these for home. She will follow-up with orthopedics outpatient. Patient at this time meets no criteria for sepsis. Patient will continue to follow-up outpatient and instructed to return for any worsening symptoms. All questions answered, patient stable for discharge Procedures <Dr. Todd Sage MD - Last Filed: 02/08/23 20:37> Other Procedures Procedure(s): Incision and drainage of the olecranon bursitis Verbal consent obtained. I discussed with Dr. Loyd to this. I used 1% lidocaine and anesthetized the area around her abrasion, I used an 18-gauge needle and withdrew all the contents of the bursa. Most of them were bloody. Patient tolerated procedure well. Discharge Plan Triage Chief Complaint: Upper Extremity Injury ED Midlevel Provider: Todd Nielsen ED Provider: Todd Sage Dx/Rx/DC Orders Clinical Impression: Bursitis due to trauma, Elbow abrasion Instructions: ED Abrasion, ED Bursitis Prescriptions: New oxycodone-acetaminophen [Percocet] 5-325 mg tablet 1 tab PO Q8H PRN (Reason: pain) 3 Days Qty: 10 0RF clindamycin HCl 300 mg capsule 300 mg PO Q8H 10 Days Qty: 30 0RF No Action naproxen 500 mg tablet 500 mg PO PRN PRN (Reason: Pain) Qty: 30 0RF metformin 500 MG tablet 1,000 mg PO BID Patient Comments: atorvastatin 40 MG tablet 80 mg PO DAILY clopidogrel 75 MG tablet 75 mg PO DAILY warfarin 5 MG tablet 7 mg PO DAILY pantoprazole 40 MG tablet 40 mg PO DAILY biotin 5,000 MCG tablet,disintegrating 5,000 mcg PO DAILY sennosides-docusate sodium [Senexon-S] 8.6-50 mg tablet 1 tab PO BID PRN (Reason: Constipation) doxepin 10 mg capsule 10 mg PO PRN PRN (Reason: Sleep) escitalopram oxalate [Lexapro] 20 mg tablet 20 mg PO DAILY Patient Comments: TAKE 1 TABLET BY MOUTH EVERY DAY bupropion HCl 150 mg tablet sustained-release 12 hr 150 mg PO BID Patient Comments: TAKE 1 TABLET ORALLY TWICE PER DAY FOR 90 DAYS valsartan 160 mg tablet 160 mg PO DAILY Patient Comments: TAKE 1 TABLET BY MOUTH EVERY DAY polysaccharide iron complex 150 mg iron capsule See Rx Instructions .ROUTE .COMPLEX Qty: 180 2RF Dose Instruction: TAKE 1 CAPSULE BY MOUTH TWICE A DAY Rx Instructions: TAKE 1 CAPSULE BY MOUTH TWICE A DAY Primary Care Provider: Shashank Tai Chi Referrals: Stefan Loyd MD [Med Staff - Active Staff] - Shashank Tai Chi, MD [Primary Care Provider] - Activity Restrictions/Additional Instructions: You need to start your antibiotics tomorrow 3 times a day. You may take the pain medicine as needed. Please follow-up with orthopedics early this week. Return for worsening redness pain fever chills Disposition Disposition: Home, Self Care What to do if you have Problems For any increased pain, shortness of breath, bleeding, nausea or vomiting, chestpain, or any unexpected problems, contact your Primary Care Provider. Call [facility] ([phone]) or report to the closest Emergency Room. Call 911 if necessary. 02/08/232036 <Electronically signed by Todd Sage MD> Cosigner Signature (if applicable): 02/08/232034 <Electronically signed by Todd GONZALEZC> CC: Dr. Shashank Tai MD ~ Signed [facility] Work Phone: [phone]) 449-538509-03-2023 Hospital Discharge instructions Additional Instructions You need to start your antibiotics tomorrow 3 times a day. You may take the pain medicine as needed. Please follow-up with orthopedics early this week. Return for worsening redness pain fever [place] Work Phone: [phone]) 142-574408-10-2023 Miscellaneous Notes* Telephone Encounter - Gisele Arriola - 01/09/2023 1:55 PM EDT Ms. Friend called and said she had talked to someone in November about getting a letter from Dr. De Luna that is was ok to have a hysterectomy done. She was wondering if there is anyway to get that letter so it can be sent to her doctor. Gisele Arriola [employer] [facility] Castro [facility] July 31, 2022 3:44pm Note Date/Time July 31, 2022 12:1 1pm [facility] Medical Records Department [address] [place] [address] Emergency Department Summary 07/31/22 MR#: [id number] Acct: [id number] Name: ROGERIO FRIEND Rep #:[id number] : 1970 52 From: Wilson Castro MD PCP: Dr. Shashank Tai MD Status:REG E R Location: ED HPI HPI - Female History of Present Illness Chief Complaint: Dizziness Informant: patient Narrative Narrative: Patient states she has had vaginal bleeding for the past 2-3 days, 2-3 pads per hour every hour for the entire time. She states she had an endometrial ablation3 weeks ago, because of heavy vaginal bleeding, and states that she really did not have any bleeding until a few days ago. Has been feeling lightheaded off and on. She states she tried to call her ANESTHESIA TECHNICIAN today but could not get a hold of anyone, she had a near syncopal episode and collapsed on the floor without losing consciousness, without injuring herself, and called EMS to bring her to the hospital. She has a history of thromboembolic disease. She appears to be on both clopidogrel and warfarin. 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 Bruising Chronic cough Contraceptive management Depression Diabetes mellitus DVT (deep venous thrombosis) Easy bruising Excessive bleeding Gastric reflux History of echocardiogram History of kidney stones Injury of head and neck Leg cramps Leukocytosis Menorrhagia with irregular cycle Migraine headache Smoker Wears dentures Wears glasses Home Medications metformin 500 mg tablet 1,000 mg PO BID diabetes 02/28/14 [History Last Taken 11/26/19 16:00] atorvastatin 40 mg tablet 80 mg PO QHS cholesterol 11/26/19 [History Last Taken 11/25/19] clopidogrel 75 mg tablet 75 mg PO DAILY 12/14/19 [History Last Taken 07/05/22] warfarin 5 mg tablet 7 mg PO DAILY DVT 12/14/19 [History Last Taken 07/05/22] aspirin 81 mg tablet,delayed release 81 mg PO DAILY 04/03/20 [History Last Taken Unknown] biotin 5,000 mcg disintegrating tablet 5,000 mcg PO DAILY 04/03/20 [History Last Taken Unknown] pantoprazole 40 mg tablet,delayed release 40 mg PO DAILY 04/03/20 [History Last Taken 07/09/22] doxepin 10 mg capsule 10 mg PO PRN PRN Sleep 12/14/20 [History Last Taken Unknown] escitalopram oxalate 20 mg tablet (Lexapro) 20 mg PO DAILY 12/14/20 [History Last Taken Unknown] polysaccharide iron complex 150 mg iron capsule See Rx Instructions .Route .COMPLEX #180 caps 11/27/21 [Rx Last Taken Unknown] oxycodone-acetaminophen 5 mg-325 mg tablet (Percocet) 1 tab PO Q6H PRN pain 3 days #12 tabs 06/12/22 [Rx Last Taken Unknown] bupropion HCl 150 mg tablet,12 hr sustained-release 150 mg PO BID 07/05/22 [History Last Taken Unknown] pioglitazone 30 mg tablet 30 mg PO DAILY 07/05/22 [History Last Taken Unknown] valsartan 160 mg tablet 160 mg PO DAILY 07/05/22 [History Last Taken 07/09/22] oxycodone-acetaminophen 5 mg-325 mg tablet (Percocet) 1 tab PO Q6H PRN pain 3 days #10 tabs 07/09/22 [Rx Last Taken Unknown] naproxen 500 mg tablet 500 mg PO PRN PRN Pain #30 tabs 07/23/22 [Rx Last Taken Unknown] sennosides 8.6 mg-docusate sodium 50 mg tablet (Senexon-S) 1 tab PO BID #60 tabs07/23/22 [Rx Last Taken Unknown] doxycycline monohydrate 100 mg capsule 100 mg PO BID #20 CAPSULES 07/30/22 [Rx Last Taken Unknown] medroxyprogesterone 10 mg tablet 10 mg PO DAILY #50 tabs 07/30/22 [Rx Last Taken Unknown] Allergy/AdvReac Type Severity Reaction Status Date / Time latex Allergy Mild rash Verified 07/31/22 11:36 Penicillins [PCN] Allergy Hives Verified 07/31/22 11:36 Family History Brother Diabetes Father Diabetes Mother Diabetes Uncle Diabetes Skin cancer Colon cancer Uncle Diabetes Aunt Breast cancer Surgical History H/O lithotripsy H/O tubal ligation History of embolectomy History of esophagogastroduodenoscopy (EGD) Hx of cholecystectomy Hx of partial nephrectomy Status post endometrial ablation Social History household members: family current occupational status: employed current occupation: [employer] history of recent travel: No sexually active: No Smoking Status: Current every day smoker tobacco type: cigarettes alcohol intake: never substance use type: does not use what type of physical activity do you participate in: other seatbelt use: always do you feel safe at home: Yes additional social history: single ROS ROS ED Constitutional Constitutional ED: Reports malaise; Denies chills or fever(s) Eyes Eyes: Denies change in vision or diplopia ENT ENT ED: Denies rhinorrhea or sore throat Cardiovascular Cardiovascular: Reports as per HPI and lightheadedness; Denies chest pain, leg edema, palpitations or syncope Respiratory/Chest Respiratory/Chest: Denies cough or dyspnea Gastrointestinal Gastrointestinal: Denies abdominal pain, diarrhea, nausea or vomiting Genitourinary Genitourinary ED: Denies dysuria or hematuria Musculoskeletal Musculoskeletal: Denies back pain or neck pain Integumentary Denies abscess or rash Neurologic Neurologic: Denies headache(s), paresthesias or weakness Psychiatric Psychiatric: Denies anxiety or suicidal thoughts EXAM Physical Exam Const Vital Signs: 07/31/22 11:25 07/31/22 11:36 07/31/22 11:39 Temperature 97.5 F L Temperature Source Temporal Pulse Rate 90 Pulse Rate [Lying] 72 Respiratory Rate 16 Respiratory Effort Normal Non-Labored Respiratory Pattern Normal Blood Pressure 116/59 L Blood Pressure [Lying] 112/59 L Blood Pressure [Sitting (for 1 minute prior to obtaining)] 115/72 Blood Pressure [Standing (for 1 minute prior to obtaining)] 107/73 Blood Pressure Mean 78 Blood Pressure Mean [Lying] 76 Blood Pressure Mean [Sitting (for 1 minute prior to obtaining)] 86 Blood Pressure Mean [Standing (for 1 minute prior to obtaining)] 84 Pulse Ox 98 Oxygen Delivery Method Room Air 07/31/22 13:05 Temperature Temperature Source Pulse Rate 80 Pulse Rate [Lying] Respiratory Rate Respiratory Effort Respiratory Pattern Blood Pressure 104/57 L Blood Pressure [Lying] Blood Pressure [Sitting (for 1 minute prior to obtaining)] Blood Pressure [Standing (for 1 minute prior to obtaining)] Blood Pressure Mean 72 Blood Pressure Mean [Lying] Blood Pressure Mean [Sitting (for 1 minute prior to obtaining)] Blood Pressure Mean [Standing (for 1 minute prior to obtaining)] Pulse Ox 100 Oxygen Delivery Method Room Air Positive well nourished and well developed General Appearance ED: well developed and NAD HEENT Reports moist mucous membranes normocephalic and atraumatic Eyes PERRL and EOMs intact bilaterally Neck full ROM and supple Resp normal respiratory effort and clear to auscultation bilaterally Cardio regular rate, regular rhythm and no murmurs Rate: Negative for tachycardic GI non-tender and non-distended Auscultation: normoactive bowel sounds Palpation: soft Back/Spine no CVA tenderness General Back: other FROM Extremity normal to inspection General Extremety ED: Negative for edema, pulses abnormal or tenderness General Extremity: Negative for edema or pulses abnormal Neuro oriented x3, CN's II-XII intact bilaterally and no sensory deficits noted Sensorium / Orientation: awake and alert Motor Exam: strength 5/5 throughout Skin no rashes or lesions noted and no wounds MDM MDM MDM Narrative Medical decision making narrative: After delay, I was able to perform pelvic speculum exam with nurse vending machine refiller. On exam, there is a small amount of brown liquid in the vaginal vault no gross blood and no active bleeding. Labs noted, she does not have significant anemia,she was given IV fluids after orthostatics were negative but her pressure was a little on the low side, 90s. Her INR is therapeutic at 2.0, she is also on clopidogrel and aspirin. She is clinically hemodynamically stable at this time and not actively bleeding at the moment. However, she is on these medications partially because of a history of A-fib and history of an aortic thrombus. Lab Data Attestation: I reviewed the patient's lab results. Labs: Laboratory Results - last 24 hr 07/31/22 07/31/22 07/31/22 11:29 11:29 11:29 WBC 9.6 RBC 3.31 L Hgb 10.1 L Hct 30.3 L MCV 91.5 MCH 30.5 MCHC 33.3 RDW Std Deviation 49.3 H RDW Coeff of Edvin 14.6 Plt Count 404 MPV 10.1 Immature Gran % (Auto) 0.600 Neut % (Auto) 45.5 L Lymph % (Auto) 44.3 H [place] % (Auto) 5.9 Eos % (Auto) 2.6 Baso % (Auto) 1.1 H Absolute Neuts (auto) 4.4 Absolute Lymphs (auto) 4.27 Nucleated RBC % 0 PT 22.6 H INR 2.0 Sodium 141 Potassium 4.0 Chloride 107 Carbon Dioxide 28.0 Anion Gap 6 BUN 14 Creatinine 0.62 Estim Creat Clear Calc 103.22 Est GFR (MDRD) Af Amer 130 Est GFR (MDRD) Non-Af 107 BUN/Creatinine Ratio 22.6 H Glucose 217 H Calcium 9.3 Discharge Plan Triage Chief Complaint: Dizziness ED Provider: Wilson Castro Dx/Rx/DC Orders Clinical Impression: Abnormal vaginal bleeding, Warfarin-induced coagulopathy Instructions: ED Dysfunctional Uterine Bleeding Prescriptions: Continued naproxen 500 mg tablet 500 mg PO PRN PRN (Reason: Pain) Qty: 30 0RF sennosides-docusate sodium [Senexon-S] 8.6-50 mg tablet 1 tab PO BID Qty: 60 0RF metformin 500 MG tablet 1,000 mg PO BID Label Comments: atorvastatin 40 MG tablet 80 mg PO QHS clopidogrel 75 MG tablet 75 mg PO DAILY warfarin 5 MG tablet 7 mg PO DAILY aspirin 81 MG tablet,delayed release (DR/EC) 81 mg PO DAILY pantoprazole 40 MG tablet 40 mg PO DAILY biotin 5,000 MCG tablet,disintegrating 5,000 mcg PO DAILY doxepin 10 mg capsule 10 mg PO PRN PRN (Reason: Sleep) escitalopram oxalate [Lexapro] 20 mg tablet 20 mg PO DAILY Label Comments: TAKE 1 TABLET BY MOUTH EVERY DAY oxycodone-acetaminophen [Percocet] 5-325 mg tablet 1 tab PO Q6H PRN (Reason: pain) 3 Days Qty: 12 0RF bupropion HCl 150 mg tablet sustained-release 12 hr 150 mg PO BID Label Comments: TAKE 1 TABLET ORALLY TWICE PER DAY FOR 90 DAYS pioglitazone 30 mg tablet 30 mg PO DAILY Label Comments: TAKE 1 TABLET ORALLY ONCE PER DAY FOR 30 DAYS valsartan 160 mg tablet 160 mg PO DAILY Label Comments: TAKE 1 TABLET BY MOUTH EVERY DAY oxycodone-acetaminophen [Percocet] 5-325 mg tablet 1 tab PO Q6H PRN (Reason: pain) 3 Days Qty: 10 0RF medroxyprogesterone 10 mg tablet 10 mg PO DAILY Qty: 50 0RF Rx Instructions: 1 tablet 3 times a day for 2 days. Then 1 tablet twice a day for 2 days. Then 1 tablet daily. doxycycline monohydrate 100 mg capsule 100 mg PO BID Qty: 20 0RF polysaccharide iron complex 150 mg iron capsule See Rx Instructions .ROUTE .COMPLEX Qty: 180 2RF Dose Instruction: TAKE 1 CAPSULE BY MOUTH TWICE A DAY Rx Instructions: TAKE 1 CAPSULE BY MOUTH TWICE A DAY Primary Care Provider: Shashank Tai Chi Referrals: Lolis Monge DO [Med Staff - Active Staff] - 3-5 Days if not improving Shashank Tai Chi, MD [Primary Care Provider] - Disposition Disposition: Home, Self Care What to do if you have Problems For any increased pain, shortness of breath, bleeding, nausea or vomiting, chestpain, or any unexpected problems, contact your Primary Care Provider. Call [facility] ([phone]) or report to the closest Emergency Room. Call 911 if necessary. 07/31/22 9351 <Electronically signed by Wilson Castro MD> Cosigner Signature (if applicable): CC: Dr. Lolis Monge DO; Dr. Shashank Tai MD ~ Signed [facility] Work Phone: [phone] 461-956602-07-[address] Clifton [facility] July 09, 2022 8:09am Note Date/Time July 09, 2022 8 :08am [facility] Medical Records Department [address] [place] [id number] Instructions for Home/Discharge Instructions 07/09/22 0807 MR#: [id number] Acct: [id number] Name: ROGERIO FRIEND Rep #:[id number] : 1970 52 From: Lolis Monge DO PCP: Dr. Shashank Tai MD Status:REG S DC Discharge Instructions Diet Discharge Diet: No restrictions Activity Discharge Activity: Return to Normal Activity, May Shower and May Take a Tub Bath (after 1 week) May resume sexual activity in: 1-2 weeks Weight Bearing Status: Weight bearing as tolerated Lifting Restrictions: none Dressing / Incision Call your doctor if you observe: Fever of 101 or Higher, Using more than 1 pad per hour, Shortness of breath and Uncontrolled pain Follow Up Care Please Follow Up With: Lolis Mogne DO When: Call [phone] to schedule appointment. Test Results: Test results from this visit will be discussed in further detail at your follow- up appointment, if applicable. Discharge Plan Admission Primary Reason for Your Visit: D&C and uterine ablation Attending Provider: Lolis Monge Primary Care Provider: Shashank Tai Chi Discharge Orders/Prescriptions Prescriptions: Continued metformin 500 MG tablet 1,000 mg PO BID Label Comments: atorvastatin 40 MG tablet 80 mg PO QHS clopidogrel 75 MG tablet 75 mg PO DAILY warfarin 5 MG tablet 6.5 mg PO DAILY aspirin 81 MG tablet,delayed release (DR/EC) 81 mg PO DAILY pantoprazole 40 MG tablet 40 mg PO DAILY biotin 5,000 MCG tablet,disintegrating 5,000 mcg PO DAILY sennosides-docusate sodium [Senexon-S] 8.6-50 mg tablet 1 tab PO BID Label Comments: TAKE 1 TABLET BY MOUTH TWICE A DAY NEEDED FOR 30 DAYS doxepin 10 mg capsule 10 mg PO PRN PRN (Reason: Sleep) escitalopram oxalate [Lexapro] 20 mg tablet 20 mg PO DAILY Label Comments: TAKE 1 TABLET BY MOUTH EVERY DAY oxycodone-acetaminophen [Percocet] 5-325 mg tablet 1 tab PO Q6H PRN (Reason: pain) 3 Days Qty: 12 0RF bupropion HCl 150 mg tablet sustained-release 12 hr 150 mg PO BID Label Comments: TAKE 1 TABLET ORALLY TWICE PER DAY FOR 90 DAYS pioglitazone 30 mg tablet 30 mg PO DAILY Label Comments: TAKE 1 TABLET ORALLY ONCE PER DAY FOR 30 DAYS naproxen 500 mg tablet 500 mg PO PRN PRN (Reason: Pain) Label Comments: TAKE 1 TABLET BY MOUTH TWICE A DAY X7DAYS WITH FOOD valsartan 160 mg tablet 160 mg PO DAILY Label Comments: TAKE 1 TABLET BY MOUTH EVERY DAY polysaccharide iron complex 150 mg iron capsule See Rx Instructions .ROUTE .COMPLEX Qty: 180 2RF Dose Instruction: TAKE 1 CAPSULE BY MOUTH TWICE A DAY Rx Instructions: TAKE 1 CAPSULE BY MOUTH TWICE A DAY Discontinued norethindrone acetate [Aygestin] 5 mg tablet 5 mg PO BID 30 Days Qty: 60 0RF Referrals / Follow Up: Shashank Tai Chi, MD [Primary Care Provider] - Disposition Disposition (needs filled in before D/C Order can be placed): Home, Self Care 07/09/22 0809<Electronically signed by Lolis Monge DO>Lolis Monge DO CC: Dr. Shashank Tai MD ~ Signed [facility] Work Phone: [phone] History and physical note Author Dr. Clifton [facility] July 09, 2022 7:33am Note Date/Time July 09, 2022 7 :33am [facility] Medical Records Department [address] [facility] [facility] [place] [address] History & Physical Exam 07/09/22 0730 MR#: [id number] Acct: [id number] Name: ROGERIO FRIEND Rep #:[id number] : 1970 52 From: Lolis Monge DO PCP: Dr. Shashank Tai MD Status:REG S NH Location: [place] [address] History and Physical Date of Admission: 07/09/22 Intake Vital Signs ? 06/11/2322:10 06/14/2309:21 06/14/2309:22 Height 5 ft 7 in 5 ft 7 in 5 ft 7 in Weight: 185 lb 193 lb 6 oz ? BMI 29.0 30.2 ? BP 134/68 H 133/73 H ? Respiration 15 ? ? Pulse 82 ? ? Temp 97.6 F L ? ? Pulse Oximetry (%) 100 ? ? Intake Visit Reasons:?menorrhagia, wanting FMLA Hand Brush Filler Required: No Is patient in pain?: Yes Pain scale (1-10): 5 Allergies latex Allergy (Mild, Verified 06/14/22 10:21) rashPenicillins [PCN] Allergy (Verified 06/14/22 10:21) Hives Medications metformin 500 mg tablet 1,000 mg PO BID diabetes 02/28/14 [History Confirmed 06/14/22] atorvastatin 40 mg tablet 80 mg PO QHS cholesterol 11/26/19 [History Confirmed 06/14/22] clopidogrel 75 mg tablet 75 mg PO DAILY 12/14/19 [History Confirmed 06/14/22] warfarin 5 mg tablet 6.5 mg PO DAILY DVT 12/14/19 [History Confirmed 06/14/22] aspirin 81 mg tablet,delayed release 81 mg PO DAILY 04/03/20 [History Confirmed 06/14/22] biotin 5,000 mcg disintegrating tablet 5,000 mcg PO DAILY 04/03/20 [History Confirmed 06/14/22] pantoprazole 40 mg tablet,delayed release 40 mg PO DAILY 04/03/20 [History Confirmed 06/14/22] doxepin 10 mg capsule 10 mg PO PRN PRN Sleep 12/14/20 [History Confirmed 06/14/22] escitalopram oxalate 20 mg tablet (Lexapro) 20 mg PO DAILY 12/14/20 [History Confirmed 06/14/22] lisinopril 2.5 mg tablet 2.5 mg PO DAILY 12/14/20 [History Confirmed 06/14/22] sennosides 8.6 mg-docusate sodium 50 mg tablet (Senexon-S) 1 tab PO BID 12/14/20[History Confirmed 06/14/22] sucralfate 1 gram tablet 1 g PO QACHS #90 tabs 12/18/20 [Rx Confirmed 06/14/22] cefaclor 500 mg capsule 500 mg PO TID 7 days #21 caps 03/10/21 [Rx Confirmed 06/14/22] polysaccharide iron complex 150 mg iron capsule See Rx Instructions .Route .COMPLEX #180 caps 11/27/21 [Rx Confirmed 06/14/22] norethindrone acetate 5 mg tablet (Aygestin) 5 mg PO .COMPLEX #45 tabs 05/28/22 [Rx Confirmed 06/14/22] cephalexin 500 mg capsule 500 mg PO TID 7 days #21 caps 06/12/22 [Rx Confirmed 06/14/22] oxycodone-acetaminophen 5 mg-325 mg tablet (Percocet) 1 tab PO Q6H PRN pain 3 days #12 tabs 06/12/22 [Rx Confirmed 06/14/22] Post menopausal: No Patient : No : No PFSH Medical History? 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 H/O lithotripsy H/O tubal ligation History of embolectomy Hx of cholecystectomy Hx of partial nephrectomy Family History? Brother DiabetesFather DiabetesMother DiabetesUncle Diabetes Skin cancer Colon cancerUncle DiabetesAunt Breast cancer Social History? household members:? family current occupational status:? employed current occupation:? [employer] history of recent travel:? No sexually active:? No Smoking Status:? Current every day smoker tobacco type: cigarettes alcohol intake:? never substance use type:? does not use what type of physical activity do you participate in:? other seatbelt use:? always do you feel safe at home:? Yes additional social history:? single HPI menorrhagia, wanting FMLA Details: ROGERIO FRIEND is a 52 year old who presents for follow up ultrasound report, er visit, and treatment for abnormal bleeding. pt suffered an aortic blood clot and is on coumadin + plavix since 2019 an started having bleeding in April. She also has cramping and right lower quadrant pain. she has been on progesterone since 05/07 and bleeding stopped but pain seems to be worse. in April ER ultrasound showed a 1.8 cm right ovarian cyst. on 06/11 the cyst decreased in size to 1.2 cm. EMB was performed on 05/07 and found to be benign. ultrasound also shows that her uterus is 6 cm. History ? ? ? 4 ? Elective abortions ? Hx Para ? ? ? 4 ? Spontaneous abortions ? Hx # Term Pregnancies ? Ectopic pregnancies ? Hx # Pregnancies ? Multiple births ? # of living children ? ? ? 4 Past Pregnancies Del. Date Name GA/Weeks Outcome Route Bth Weight Infant Gen Labor Lgth Anesthesia Del Locatn Provider FOB Unknown Christopher ? 1995 ? Unknown Yeison ? 1996 ? Unknown Justin ? 1997? Unknown Christina ? 2000 ? ROS Const ROS Unobtainable: All systems reviewed & are unremarkable except as noted in H Resp Resp: Reports system reviewed and no additional complaints, except as documented; Denies cough GI GI: Reports as per HPI Psych Psych: Reports system reviewed and no additional complaints, except as documented Exam Const General: cooperative, healthy appearing, comfortable and no acute distress Resp Effort & Inspection: normal respiratory effort General: bimanual renal exam normal bilaterally External Female Exam: normal appearance of the urethra Urethra: normal appearance of the urethra Speculum Exam - Vagina: normal appearance of the vagina Speculum Exam - Cervix: normal appearance of the cervix Bimanual Exam- Adnexa, other: normal adnexae and normal Pelvic Support: normal Skin General: no rashes or lesions noted Psych Appearance: grossly normal Speech and Movement: speech and movement normal Coding Level of Care Code Off vis,est,level 4 Diagnoses Postmenopausal bleeding? N95.0 Pelvic pain? R10.2 Menorrhagia with irregular cycle? N92.1 Assessment and Plan Assessment and Plan (1) Postmenopausal bleeding: ?Status:?Acute ?Comment: EMB pending. Rx aygestin ?Plan: continue progesterone and plan for hysteroscopy d&c ablation After discussing the patient's diagnosis and treatment plan options, patient wishes to proceed with surgical management.? I have discussed with the patient the risks, benefits, and alternatives of the procedure which include but are notlimited to risks of anesthesia, bleeding, infection, possible damage to bowel, bladder, or surrounding vasculature which could lead to additional surgery to evaluate any complications.? Patient agrees to procedure and wishes to proceed.?ACOG/uptodate references given for additional information regarding procedure.? (2) Pelvic pain: ?Status:?Acute ?Plan: do not suspect pain coming from ovary. will order CT (3) Menorrhagia with irregular cycle: plan for hysteroscopy dilation and curettage lázaro ablation 07/09/22 3008 <Electronically signed by Lolis Monge DO> Cosigner Signature (if applicable): CC: Dr. Lolis Monge DO; Dr. Shashank Tai MD~ Signed [facility] Work Phone: [phone] Procedure [facility] 12-10-2021 History of Present illness Narrative* Merrill De Luna MD - 12/10/2021 2:00 PM EDT Images from the original note were not included. DATE: 12/04/2019 SURGEON: Merrill De Luna M.D. SURGERY: First order aortic access on the right x2. First order aortic access on the left x1. 5-Mauritanian sheath on the left, 5-Mauritanian sheath on the right, 8- Mauritanian sheath up sized to a 20-Mauritanian sheath on the right. Mechanical thrombectomy with CATD of aortoiliac segment. Nitish embolectomy of aortoiliac segment from the right groin with a 20-Mauritanian sheath. Right iliac embolectomy. Left SFA and pop embolectomy with CAT8 with a 3rd order access from the right to the left popliteal. Left lower extremity selective runoff. 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 We had done an aortoiliac thrombectomy as well as a left SFA and popliteal thrombectomy percutaneously. She had stopped smoking fora period of time, but unfortunately is back to smoking. She should still remain on lifelong Coumadin with a goal INR between 2-3. We will recommend they check her LDL yearly to try and keep her goal LDL less than 70. Heart [facility] Vascular [facility] Thoracic [place] DEPARTMENT OF VASCULAR SURGERY OUTPATIENT VISIT DATE [...] of microemboli to the bilateral toes as wellas symptoms of claudication. No wounds, motor sensory intact. 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 Insulin Datto, Disposable, (BD ULTRA-FINE PORTIA PEN NEEDLE) 32 gauge x 5/32 1 Each three times daily before meals. lancets ([facility] DEL2U PLUS LANCET) 33 gauge 1 Each three times daily. insulin lispro (HUMALOG) 100 unit/mL injection Inject 0-10 Units subcutaneously daily at bedtime. 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)- Primary Embolism and thrombosis of arteries of lower extremity Anticoagulation goal of INR 2 to 3 Encounter for therapeutic drug monitoring 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 Shashank Tai MD Status:ADM I N Discharge Instructions Diet Discharge Diet: Low fat / Low cholesterol Activity Discharge Activity: Return to Normal Activity Weight Bearing Status: Weight bearing as tolerated Dressing / Incision Call your doctor if you observe: Fever of 101 or Higher, Shortness of breath, Dizziness, Swelling in the ankles and Chest pain Follow Up Care Test Results: Test results from this visit will be discussed in further detail at your follow- up appointment, if applicable. Discharge Plan Admission Admit Date/Time: 05/15/23 03:06 Primary Reason for Your Visit: pneumonia Attending Provider: Shavon Kingsley Primary Care Provider: Shashank Tai Chi Consulting Providers: Leola Bowman Instructions Patient Instructions: ED Pneumonia (Adult) Discharge Orders/Prescriptions Prescriptions: New levofloxacin 750 mg tablet 750 mg PO DAILY Qty: 5 0RF Continued metformin 500 MG tablet 1,000 mg PO BID Patient Comments: atorvastatin 40 MG tablet 80 mg PO DAILY clopidogrel 75 MG tablet 75 mg PO DAILY warfarin 5 MG tablet 7 mg PO DAILY pantoprazole 40 MG tablet 40 mg PO DAILY biotin 5,000 MCG tablet,disintegrating 10,000 mcg PO DAILY sennosides-docusate sodium [Senexon-S] 8.6-50 mg tablet 1 tab PO BID PRN (Reason: Constipation) doxepin 10 mg capsule 10 mg PO PRN PRN (Reason: Sleep) escitalopram oxalate [Lexapro] 20 mg tablet 20 mg PO DAILY Patient Comments: TAKE 1 TABLET BY MOUTH EVERY DAY bupropion HCl 150 mg tablet sustained-release 12 hr 150 mg PO BID Patient Comments: TAKE 1 TABLET ORALLY TWICE PER DAY FOR 90 DAYS valsartan 160 mg tablet 160 mg PO DAILY Patient Comments: TAKE 1 TABLET BY MOUTH EVERY DAY Farxiga 10 mg tablet 10 mg PO DAILY pioglitazone 30 mg tablet 30 mg PO DAILY Patient Comments: TAKE 1 TABLET ORALLY ONCE PER DAY FOR 30 DAYS Referrals / Follow Up: Shashank aTi Chi, MD [Primary Care Provider] - Within 1 Week Disposition Disposition (needs filled in before D/C Order can be placed): Home, Self Care 05/17/23 1251<Electronically signed by Shavon Kingsley MD>Shavon Kingsley MD CC: Dr. Leola Bowman MD; Dr. Shashank Tai MD ~ Signed [facility] Work Phone: Evaluation + Plan note No data available for this section [facility] Evaluation note* Diagnosis Aortic mural thrombus (HCC)- Primary Embolism and thrombosis of thoracic aorta documented in this encounter [facility] noteNo assessment information availableWSheltering Arms Hospital Work Phone: Evaluation note* Diagnosis Onset Date Resolution Status Postmenopausal bleeding acut e Right ovarian cyst acute Thickened endometrium acute [facility] Work Phone: Evaluation note* Diagnosis Onset Date Resolution Status Postmenopausal bleeding acut e Right ovarian cyst acute Thickened endometrium acute Menorrhagia with irregular cycle acute Pelvic pain acute Postmenopausal bleeding acut e Iron deficiency resolved Iron deficiency anemia resol prabhu Iron deficiency resolved [facility] Work Phone: Evaluation note* Diagnosis Onset Date Resolution Status Postmenopausal bleeding acut e Right ovarian cyst acute Thickened endometrium acute Menorrhagia with irregular cycle acute Pelvic pain acute Postmenopausal bleeding acut e Iron deficiency resolved Iron deficiency anemia resol prabhu Iron deficiency resolved History of abnormal cervical Pap smear acute On anticoagulant therapy acu te Postmenopausal bleeding acut e Aortic aneurysm of unspecifi ed site without mention of rupture chronic [facility] Work Phone: [phone] note* Diagnosis Onset Date Resolution Status Menorrhagia with irregular cycle acute Pelvic pain acute Postmenopausal bleeding acut e Iron deficiency resolved Iron deficiency anemia resol prabhu Iron deficiency resolved History of abnormal cervical Pap smear acute On anticoagulant therapy acu te Postmenopausal bleeding acut e Aortic aneurysm of unspecifi ed site without mention of rupture chronic [facility] Work Phone: [phone] note* Diagnosis Onset Date Resolution Status Iron deficiency acute Iron deficiency acute Iron deficiency anemia resol prabhu [facility] Work Phone: [phone] note* Diagnosis Onset Date Resolution Status Iron deficiency resolved Iron deficiency anemia resol prabhu Iron deficiency resolved [facility] Work Phone: [phone] note* Diagnosis Onset Date Resolution Status Iron deficiency resolved Iron deficiency anemia resol prabhu Iron deficiency resolved Left lateral epicondylitis n oneactive [facility] Work Phone: [phone] note* Diagnosis Onset Date Resolution Status Iron deficiency resolved Left lateral epicondylitis n oneactive Iron deficiency resolved Iron deficiency anemia resol prabhu [facility] Work Phone: [phone] note* Diagnosis Onset Date Resolution Status Iron deficiency resolved Left lateral epicondylitis n oneactive Iron deficiency resolved Iron deficiency anemia resol prabhu Acute hyponatremia acute DAVID (acute kidney injury) ac [place] Diarrhea acute Multifocal pneumonia acute [facility] Work Phone: [phone] note* Diagnosis Onset Date Resolution Status Iron deficiency resolved Left lateral epicondylitis n oneactive Iron deficiency resolved Iron deficiency anemia resol prabhu Acute hyponatremia resolved DAVID (acute kidney injury) re solved Diarrhea resolved [facility] Work Phone: [phone] note* Diagnosis Onset Date Resolution Status Left lateral epicondylitis n oneactive Iron deficiency resolved Iron deficiency anemia resol prabhu Acute hyponatremia resolved DAVID (acute kidney injury) re solved Diarrhea resolved [facility] Work Phone: Evaluation note* Diagnosis Onset Date Resolution Status Left lateral epicondylitis n oneactive Iron deficiency resolved Iron deficiency anemia resol prabhu Acute hyponatremia resolved DAVID (acute kidney injury) re solved Diarrhea resolved Contact with or exposure to other viral diseases acute URI (upper respiratory infection) acute [facility] Work Phone: Evaluation note* Diagnosis Onset Date Resolution Status Iron deficiency resolved Iron deficiency anemia resol prabhu Acute hyponatremia resolved DAVID (acute kidney injury) re solved Diarrhea resolved Contact with or exposure to other viral diseases acute URI (upper respiratory infection) acute [facility] Work Phone: Evaluation note* Diagnosis Onset Date Resolution Status Acute hyponatremia resolved DAVID (acute kidney injury) re solved Diarrhea resolved Contact with or exposure to other viral diseases acute URI (upper respiratory infection) acute [facility] Work Phone: Evaluation note* Diagnosis 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 Shashank Tai MD Status:ADM I N Location: [place] [address] HPI - General General Date of Admission: 05/15/23 Date of Service: 05/15/23 Chief Complaint: Chills, diaphoresis, dizziness, diarrhea, congestion, cough. HPI Narrative The patient is a 52 y/o F w/ PMHx: Chart reported Hx CVA, Hx DVT, HTN, HLD, Anxiety and Depression, Diabetes mellitus type II, GERD, DONAVAN, Chronic Anemia/Fe deficiency anemia, Hx Aortic thromboembolism, Tobacco use who presents to the [facility] ED on 05/15/23 with history of sinus congestion starting approximately week prior with PCP evaluation with negative COVID, influenza and RSV swab placed on a course of prednisone however she has been worsening with intermittent chills, diaphoresis, dizziness as well as recent onset of severe diarrhea for the last 2to 3 days with increased urinary frequency and an episode of evening urinary incontinence which woke her from sleep the evening prior with fatigue and malaise as well as frontal headache with a mild nonproductive cough prompting eventual ED evaluation. He reports that no one in her immediate family has beenill but she has had some ill contacts at work. Workup in the ED included T97.6,heart rate 78, BP 121/72, respiratory rate 16, 98% on room air, CBC with WBC 23,hemoglobin 14.8, platelet 446 with left shift and lymphocytosis, coags with INR 1.9, PT 21.6, CMP with sodium 127, chloride 96, BUN/creatinine 34/1.51, glucose 333, hepatic profile unremarkable, urinalysis with protein 30, glucose 1000, occult blood 10 otherwise not marked appearing, SARS COVID and influenza antigennegative, chest x-ray with no acute cardiopulmonary findings, CT chest, abdomen and pelvis without contrast with bilateral lower lobe airspace disease suggestive of multifocal pneumonia with otherwise no acute findings. In the ED patient ministered 1 L normal saline as well as Tylenol 650 mg p.o. x 1, IV azithromycin and IV Rocephin. 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 Bruising Chronic cough Contraceptive management Depression Diabetes mellitus DVT (deep venous thrombosis) Easy bruising Excessive bleeding Gastric reflux History of echocardiogram History of kidney stones Injury of head and neck Leg cramps Leukocytosis Menorrhagia with irregular cycle Migraine headache Sleep apnea Smoker Wears dentures Wears glasses Home Medications metformin 500 mg tablet 1,000 mg PO BID diabetes 02/28/14 [History Last Taken 11/26/19 16:00] atorvastatin 40 mg tablet 80 mg PO DAILY cholesterol 11/26/19 [History Last Taken 11/25/19] clopidogrel 75 mg tablet 75 mg PO DAILY 12/14/19 [History Last Taken 07/05/22] warfarin 5 mg tablet 7 mg PO DAILY DVT 12/14/19 [History Last Taken 07/05/22] biotin 5,000 mcg disintegrating tablet 10,000 mcg PO DAILY 04/03/20 [History Last Taken Unknown] pantoprazole 40 mg tablet,delayed release 40 mg PO DAILY 04/03/20 [History Last Taken 07/09/22] doxepin 10 mg capsule 10 mg PO PRN PRN Sleep 12/14/20 [History Last Taken Unknown] escitalopram oxalate 20 mg tablet (Lexapro) 20 mg PO DAILY 12/14/20 [History Last Taken Unknown] bupropion HCl 150 mg tablet,12 hr sustained-release 150 mg PO BID 07/05/22 [History Last Taken Unknown] valsartan 160 mg tablet 160 mg PO DAILY 07/05/22 [History Last Taken 07/09/22] sennosides 8.6 mg-docusate sodium 50 mg tablet (Senexon-S) 1 tab PO BID PRN Constipation 11/25/22 [History Last Taken Unknown] dapagliflozin propanediol 10 mg tablet (Farxiga) 10 mg PO DAILY 05/15/23 [History Last Taken Unknown] Allergy/AdvReac Type Severity Reaction Status Date / Time latex Allergy Mild rash Verified 03/04/23 13:52 Penicillins [PCN] Allergy Hives Verified 03/04/23 13:52 Family History Brother Diabetes Father Diabetes Mother Diabetes Uncle Diabetes Skin cancer Colon cancer Uncle Diabetes Aunt Breast cancer Surgical History H/O lithotripsy H/O tubal ligation History of embolectomy History of esophagogastroduodenoscopy (EGD) Hx of cholecystectomy Hx of partial nephrectomy Status post endometrial ablation Social History (Updated 05/15/23 @ 03:[address] Leola Bowman MD) household members: family current occupational status: employed current occupation: [employer] history of recent travel: No sexually active: No Smoking Status: Current every day smoker tobacco type: cigarettes Smoking packs per day: 0.5 Smoking cigarettes per day: 10.0 alcohol intake: never substance use type: does not use what type of physical activity do you participate in: other seatbelt use: always do you feel safe at home: Yes additional social history: single ROS ROS Narrative Admission Review of Systems: CONSTITUTIONAL: No weight loss, fever, + chills, weakness or fatigue. HEENT: + Congestion, rhinorrhea, headache. Eyes: No visual loss, blurred vision, double vision or yellow sclerae. Ears, Nose, Throat: No hearing loss, sneezing. SKIN: No rash or itching, lesions, wounds. CARDIOVASCULAR: No chest pain, chest pressure or chest discomfort, palpitations, edema, orthopnea, syncopal events. RESPIRATORY: + Mild cough, dyspnea. No marked sputum, wheezing, hemoptysis. GASTROINTESTINAL: + anorexia, diarrhea. No nausea, vomiting, abdominal pain, melena, BRBPR. GENITOURINARY: No dysuria, frequency, urgency or retention. NEUROLOGICAL: + Headache, dizziness, No syncope, paralysis, ataxia, numbness or tingling in the extremities, focal weakness, change in bowel or bladder control, seizure. MUSCULOSKELETAL: + muscle, back pain, joint pain or stiffness. HEMATOLOGIC: + Hx anemia, easy bleeding/bruising. LYMPHATICS: No enlarged nodes. No history of splenectomy. PSYCHIATRIC: + history of depression or anxiety. ENDOCRINOLOGIC: No reports of sweating, cold or heat intolerance. No polyuria or polydipsia. ALLERGIES: + Hx hives. Vital Signs Vital Signs Vital Signs: 05/15/23 00:32 05/15/23 00:32 05/15/23 03:02 Temperature 97.6 F L 98.1 F Temperature Source Temporal Pulse Rate 78 64 Respiratory Rate 16 15 Respiratory Effort Normal Non-Labored Respiratory Pattern Normal Blood Pressure 121/72 H 111/60 Blood Pressure Mean 88 77 Pulse Ox 98 98 Oxygen Delivery Method Room Air 05/15/23 00:52 05/15/23 02:52 Temperature Temperature Source Pulse Rate 69 67 Respiratory Rate 14 16 Respiratory Effort Respiratory Pattern Blood Pressure Blood Pressure Mean Pulse Ox 98 98 Oxygen Delivery Method Room Air Room Air Weight Weight: 187 lb 13.341 oz Body Mass Index (BMI) 29.4 Physical Exam Narrative Physical Examination: General: Awake, alert, oriented x 3 and cooperative, seated upright in the ED bed in no apparent distress, fatigued appearing. Skin: Normal color, normal turgor, no icterus, no cyanosis. HEENT: AT/NC, EOMI, PERRLA, dry MM, no carotid bruits or JVD noted. Lungs: Diffusely diminished, greater bases, appropriate effort, no rales, ronchi or wheezing. Heart: Regular rate and rhythm; no gallop, rub audible. Abdomen: Soft, NTTP, ND, mildly hyperactive BS, no appreciated HSM. Extremities: No cyanosis, clubbing, or edema. Neurological: Patient awake, alert, oriented as noted, cognitive function intact although patient responses are slow but she is fatigued versus possibly baseline; pupils equally reactive to light and accommodation, cranial nerves grossly normal, moving all 4 extremities, no focal deficits, strength moderately globally decreased secondary to acute presentation complaints. Psychiatric: Affect appears flat, fatigued, no acute evidence of depressive or anxiety feelings but does have underlying history. Results Lab / Micro Data 05/15/23 01:05 05/15/23 01:05 Labs: Laboratory Results - last 24 hr 05/15/23 01:05: WBC 23.0 H, RBC 4.85, Hgb 14.8, Hct 43.8, MCV 90.3, MCH 30.5, MCHC 33.8, RDW Std Deviation 45.9 H, RDW Coeff of Edvin 13.8, Plt Count 446, MPV 9.9, Immature Gran % (Auto) 2.400 H, Neut % (Auto) 64.3, Lymph % (Auto) 25.1, [place] % (Auto) 6.8, Eos % (Auto) 0.2, Baso % (Auto) 1.2 H, Absolute Neuts (auto) 14.8 H, Absolute Lymphs (auto) 5.77 H, Nucleated RBC % 0, Differential Comment SCANNED, Diff Path Review May foll, Tear Drop Cells RARE, PT 21.6 H, INR 1.9, Sodium 127 L, Potassium 3.9, Chloride 96 L, Carbon Dioxide 26.0, Anion Gap 5, BUN 34 H, Creatinine 1.51 H, Estim Creat Clear Calc 42.38, Est GFR (MDRD) Af Amer 46 L, Est GFR (MDRD) Non-Af 38 L, BUN/Creatinine Ratio 22.5 H, Glucose 333 H, Calcium 9.5, Total Bilirubin 0.30, AST 16, ALT 23, Alkaline Phosphatase 100, Total Creatine Kinase 100, Total Protein 7.1, Albumin 3.7, Globulin 3.4, Albumin/Globulin Ratio 1.1, Urine Color Yellow, Urine Clarity Clear, Urine pH 5.0, Ur Specific [place] 1.015, Urine Protein 30 H, Urine Glucose (UA) 1000 H, Urine Ketones Negative, Urine Occult Blood 10 H, Urine Nitrite Negative, Urine Bilirubin Negative, Urine Urobilinogen Normal, Ur Leukocyte Esterase Negative, Urine RBC 0-5 SEEN, Urine WBC 0 SEEN, Ur Squamous Epith Cells 0-5 SEEN, Urine Bacteria 0 SEEN, Urine Mucus 0 SEEN Micro: Microbiology 05/15/23 01:05 Nasal Secretion SARS-CoV-2 & FLU Antigen (Rapid) - Final Rhythm Strip Rhythm Strip: Sinus Rhythm Rate: 68 Ectopy: None Imagaing Radiology Impression Chest X-Ray 05/15/23 01:20 IMPRESSION: No radiographic evidence of acute cardiopulmonary disease. Electronically Signed: Saida Jose MD at 1:49 EST , Chest/Abdomen/Pelvis CT 05/15/23 01:47 IMPRESSION: 1. Bilateral lower lobe airspace disease suggests multifocal pneumonia. 2. No CT evidence of acute intra-abdominal disease. Electronically Signed: Saida Jose MD at 2:44 EST , Assessment & Plan Assessment/Plan (1) Multifocal pneumonia: PLAN: Plan The patient is a 52 y/o F w/ PMHx: Chart reported history of CVA, Hx DVT, HTN, HLD, Anxiety and Depression, Diabetes mellitus type II, GERD, DONAVAN, Chronic Anemia/Fe deficiency anemia, Hx Aortic thromboembolism, Tobacco use who presents to the [facility] ED on 05/15/23 with history of sinus congestion starting approximately week prior with PCP evaluation with negative COVID, influenza and RSV swab placed on a course of prednisone however she has been worsening with intermittent chills, diaphoresis, dizziness as well as recent onset of severe diarrhea for the last 2 to 3 days with increased urinary frequency and an episode of evening urinary incontinence which woke her from sleep the evening prior with fatigue and malaise as well as frontal headache with a mild nonproductive cough prompting eventual ED evaluation. #1. Bilateral multifocal pneumonia possibly bacterial superimposed on recent acute viral illness: Will admit to [facility], maintain on oxygen with wean as tolerated to room air, PRN albuterol, maintained on IV Rocephin and Azithromycin, HOB, IS parameters w/ pending sputum cultures, full respiratory viral panel, procalcitonin, COVID PCR and urine antigens, stool enteric also requested. Of note patient recently on steroids thus unclear if leukocytosis is related primarily to this. #2. Acute kidney injury: Secondary to GI losses. Admission BUN/Cr 34/1.51, prior baseline creatinine noted to be primarily 0.6. Will hydrate, hold nephrotoxic medications and repeat chemistry in AM. If no improvement would plan FeNa assessment. #3. Hyponatremia, hypochloremia, hypovolemic: Admission sodium 127, chloride 96, given GI losses presumed hypovolemic, continue aggressive hydration with repeat CMP in AM. #4. History of VTE, history aortic thromboembolism: We will continue patient home Coumadin, Plavix with INR trending. #5. Hypertension: Holding home ARB given DAVID, PRN hydralazine. #6. Hyperlipidemia: We will continue patient on statin therapy. #7. Diabetes mellitus type II with hyperglycemia: Admission glucose notably elevated 333 in the setting of acute illness, hold oral home regimen, ADA diet, accu checks w/ ISS. #8. Anxiety and depression: We will continue patient home escitalopram, bupropion and doxepin at home regimen. #9. Chart reported History CVA: Unclear if true diagnosis, patient denies deficits, potential prior evaluation and work-up. MRI imaging noted 11/27/19 with no noted MRI evidence of CVA pr prior at that time. We will continue patient home Plavix, Coumadin with INR trending, statin therapy, holding hypertensive regimen given DAVID, resume once appropriate, holding oral diabetic regimen with adjustments as noted. #10. GERD: We will continue patient on PPI. #11. DONAVAN: CPAP nightly. #12. DVT prophylaxis: Continue patient home Coumadin with INR trending. Charges/Coding Visit Charges Inpatient E&M: 91976 Init Hosp L3 05/15/23 6692 <Electronically signed by Leola Bowman MD> Cosigner Signature (if applicable): CC: Dr. Leola Bowman MD; Dr. Shashank Tai MD~ Signed [facility] Work Phone: Hospital Discharge instructions Additional Instructions Plenty of fluids and rest. You are COVID-positive. Your flu test was negative. Tylenol for body aches, fever and chills. Follow-up with your doctor in 1 week if not improving. You do not need any further antibiotics they gave you antibiotics today in the office that will not treat COVID.[facility] Work Phone: Hospital Discharge instructions Additional Instructions Thank you for trusting us with your care today! Please take Tylenol (2 pills, 650 mg), ibuprofen (2 pills, 400 mg) every 6 hours as needed for pain and fever control. Please drink plenty of fluids. Please return to the emergency department if your symptoms change or worsen. Specifically develop blue discoloration of your skin, worsening shortness of breath, if you notice with your home pulse ox the oxygen levels below 88%. Please follow with your primary care physician for further outpatient evaluation and management.[facility] Work Phone: Hospital Discharge instructions Additional Instructions Monitor your INR while taking the antibiotics. Do not drink any alcohol while taking antibiotics.[facility] Work Phone: Hospital Discharge instructions No data available for this section [facility] Progress note No data available for this section [facility] Reason for referral (narrative)* Outpatient Procedure (Routine) - Pending Review Specialty Diagnoses / Procedures Referred By Contemi t Referred To [facility] Diagnoses Aortic mural thrombus (HCC) Procedures PVR ANK/[place]/TOE LIZ VAS LAB NON-INVAS PHYSIOLOGIC STD EXTREMITY ART 2 LEVEL Merrill De Luna MD [address] [place] [address] [facility] [place] [address] [place] [address] Referral ID Status Reason Start Date Expiration Date Visits Requested Visits Authorized [id number] Pending Review Auto-Generat ed Referral 08/31/2021 08/31/2022 1 1 * Outpatient Procedure (Routine) - Pending Review Specialty Diagnoses / Procedures Referred By Contac t Referred To [facility] [place] Diagnoses Aortic mural thrombus (HCC) Procedures US FEMORAL ARTERY LIZ VAS LAB DUP-SCAN LXTR ART/ARTL BPGS COMPL BI STUDY Merrill De Luna MD [address] [place] [address] [address] Referral ID Status Reason Start Date Expiration Date Visits Requested Visits Authorized [id number] Pending Review Auto-Generat ed Referral 08/31/2021 08/31/2022 1 1 * Outpatient Procedure (Routine) - Pending Review Specialty Diagnoses / Procedures Referred By Contac t Referred To Contact [facility] Diagnoses Aortic mural thrombus (HCC) Procedures US ABD AORTA COMPLETE VAS LAB DUP-SCAN AORTA IVC ILIAC VASCL/BPGS COMPLETE Merrill De Luna MD [address] [place] [address] [address] Referral ID Status Reason Start Date Expiration Date Visits Requested Visits Authorized [id number] Pending Review Auto-Generat ed Referral 08/31/2021 08/31/2022 1 1 * Outpatient Procedure (Routine) - Pending Review Specialty Diagnoses / Procedures Referred By Contac t Referred To [facility] [place] Diagnoses Aortic mural thrombus (HCC) Procedures US LEG ARTERIAL PERIPH LIZ VAS LAB DUP-SCAN LXTR ART/ARTL BPGS COMPL BI STUDY Merrill De Luna MD [address] [place] [address] [address] Referral ID Status Reason Start Date Expiration Date Visits Requested Visits Authorized [id number] Pending Review Auto-Generat ed Referral 08/31/2021 08/31/2022 1 1 [facility] for referral (narrative)No reason for referral information availableWSheltering [facility] Work Phone: Summary Purpose Family History No Family History Records Found Relationship Condition Age at Onset Recorded Date/T shea brother Diabetes mellitus Unknown father Diabetes mellitus Unknown mother Diabetes mellitus Unknown uncle Diabetes mellitus Unknown Malignant neoplasm of skin Unknown Malignant neoplasm of colon Unknown aunt Malignant neoplasm of breast Unknown Advance Directives No Advanced Directives Records FoundDocuments on File Type Date Recorded Patient Respiratory Care Technician Expl anation Advance Directive(s) 11/30/2019 2:17 PM Latest Code Status on File Code Status Date Activated Date Inactivated Comments Full Code 12/01/2019 11:29 PM 12/08/2019 3:50 PM Full Code Order Discussed With: Patient Advance Directive Response Recorded Date/ Time Living Will No March 10 5:02am Power of Respiratory Therapy Director No March 10, 2 021 5:02am Documents on File Type Date Recorded Patient Respiratory Care Technician Expl anation Advance Directive(s) 11/30/2019 2:17 PM Latest Code Status on File Code Status Date Activated Date Inactivated Comments Full Code 12/01/2019 11:29 PM 12/08/2019 3:50 PM Advance Directive Response Recorded Date/ Time Living Will No April 22, 022 10:11pm Power of Respiratory Therapy Director No April 22, 2022 10:11pm Advance Directive Response Recorded Date/ Time Living Will No May 08 6:57pm Power of Respiratory Therapy Director No May 08, 2022 6:57pm Advance Directive Response Recorded Date/ Time Living Will No June 12 12:20am Power of Respiratory Therapy Director No June 12, 2022 12:20am Advance Directive Response Recorded Date/ Time Living Will No July 30, 023 2:46am Power of Respiratory Therapy Director No July 30, 2022 2:46am Advance Directive Response Recorded Date/ Time Living Will No July 31, 2022 11:36am Power of Respiratory Therapy Director No July 31 11:36am Advance Directive Response Recorded Date/ Time Living Will No July 31, 2022 12:36pm Power of Respiratory Therapy Director No July 31 12:36pm Latest Code Status on File Code Status Date Activated Date Inactivated Comments Full Code 12/01/2019 11:29 PM 12/08/2019 3:50 PM Question Answer Comments Full Code Order Discussed With: Patient Advance Directive Response Recorded Date/ Time Living Will No February 08 2 023 7:30pm Power of Respiratory Therapy Director No February 08, 2023 7:30pm Advance Directive Response Recorded Date/ Time Living Will No February 08 2 023 6:30pm Power of Respiratory Therapy Director No February 08, 2023 6:30pm Advance Directive Response Recorded Date/ Time Living Will No May 15, 2 023 12:32am Power of Respiratory Therapy Director No May 15, 2023 12:32am Advance Directive Response Recorded Date/ Time Living Will No May 15, 2 023 4:20am Power of Respiratory Therapy Director No May 15, 2023 4:20am Advance Directive Response Recorded Date/ Time Living Will No May 31 2 023 10:16pm Power of Respiratory Therapy Director No 2023 10:16pm Advance Directive Response Recorded Date/ Time Living Will No June 10 6:59pm Power of Respiratory Therapy Director No June 10 2 024 6:59pm Advance Directive Response Recorded Date/ Time Living Will No June 26 6:38pm Power of Respiratory Therapy Director No June 26, 2023 6:38pm Advance Directive Response Recorded Date/ Time Living Will No July 25 024 6:33pm Power of Respiratory Therapy Director No July 25, 2023 6:33pm Advance Directive Response Recorded Date/ Time Living Will No July 25 2 024 7:33pm Power of Respiratory Therapy Director No July 25, 2023 7:33pm Advance Directive Response Recorded Date/ Time Living Will No July 31, 2022 12:36pm Do you have a Healthcare Power of Respiratory Therapy Director? No July 31, 2022 12:36pm Living Will No July 21 2:46pm Do you have a Healthcare Power of Respiratory Therapy Director? No July 21, 2024 2:46pm Advance Directive Response Recorded Date/ Time Living Will No July 21 2:46pm Do you have a Healthcare Power of Respiratory Therapy Director? No July 21, 2024 2:46pm Date Activated Date Inactivated Comments 12/01/2019 11:29 PM 12/08/2019 3:50 PM Question Answer Comments Full Code Order Discussed With: Patient Date Activated Date Inactivated Comments 12/01/2019 11:29 PM 12/08/2019 3:50 PM Question Answer Comments Full Code Order Discussed With: Patient Chief Complaint and Reason for Visit Chief Complaint SOB Shortness of breath Chief Complaint SOB Shortness of breath SOB Chief Complaint SOB Shortness of breath SOB irregular bleeding Chief Complaint SOB Shortness of breath SOB irregular bleeding vaginal bleeding, ref by Dr. Tai ENDOMETRIAL TISSUE SYNCOPE Reason for Visit Postmenopausal bleed ing Right ovarian cyst Thickened endometrium Chief Complaint SOB irregular bleeding vaginal bleeding, ref by Dr. Tai ENDOMETRIAL TISSUE SYNCOPE Reason for Visit Postmenopausal bleed ing Right ovarian cyst Thickened endometrium Chief Complaint irregular bleeding vaginal bleeding, ref by Dr. Tai ENDOMETRIAL TISSUE SYNCOPE PAIN OTHER menorrhagia, wanting FMLA HEME/ONC RT SIDED PELVIC PAIN 1YR LABS PRIOR HYSTER D&C LÁZARO HYSTER D&C LÁZARO Reason for Visit Postmenopausal bleed ing Right ovarian cyst Thickened endometrium Menorrhagia with irregular cycle Pelvic pain Postmenopausal bleeding Iron deficiency Iron deficiency anemia Iron deficiency Chief Complaint irregular bleeding vaginal bleeding, ref by Dr. Tai ENDOMETRIAL TISSUE SYNCOPE PAIN OTHER menorrhagia, wanting FMLA HEME/ONC RT SIDED PELVIC PAIN 1YR LABS PRIOR HYSTER D&C LÁZARO HYSTER D&C LÁZARO 2 wks D&C lázaro ablation vaginal bleed Reason for Visit Postmenopausal bleed ing Right ovarian cyst Thickened endometrium Menorrhagia with irregular cycle Pelvic pain Postmenopausal bleeding Iron deficiency Iron deficiency anemia Iron deficiency History of abnormal cervical Pap smear On anticoagulant therapy Postmenopausal bleeding Aortic aneurysm of unspecified site without mention of rupture Chief Complaint irregular bleeding vaginal bleeding, ref by Dr. Tai ENDOMETRIAL TISSUE SYNCOPE PAIN OTHER menorrhagia, wanting FMLA HEME/ONC RT SIDED PELVIC PAIN 1YR LABS PRIOR HYSTER D&C LÁZARO HYSTER D&C LÁZARO 2 wks D&C lázaro ablation vaginal bleed DIZZINESS Reason for Visit Postmenopausal bleed ing Right ovarian cyst Thickened endometrium Menorrhagia with irregular cycle Pelvic pain Postmenopausal bleeding Iron deficiency Iron deficiency anemia Iron deficiency History of abnormal cervical Pap smear On anticoagulant therapy Postmenopausal bleeding Aortic aneurysm of unspecified site without mention of rupture Chief Complaint vaginal bleeding, re f by Dr. Tai ENDOMETRIAL TISSUE SYNCOPE PAIN OTHER menorrhagia, wanting FMLA HEME/ONC RT SIDED PELVIC PAIN 1YR LABS PRIOR HYSTER D&C LÁZARO HYSTER D&C LÁZARO 2 wks D&C lázaro ablation vaginal bleed DIZZINESS SLEEP STUDY/ MSLT Reason for Visit Postmenopausal bleed ing Right ovarian cyst Thickened endometrium Menorrhagia with irregular cycle Pelvic pain Postmenopausal bleeding Iron deficiency Iron deficiency anemia Iron deficiency History of abnormal cervical Pap smear On anticoagulant therapy Postmenopausal bleeding Aortic aneurysm of unspecified site without mention of rupture Chief Complaint PAIN OTHER menorrhagia, wanting FMLA HEME/ONC RT SIDED PELVIC PAIN 1YR LABS PRIOR HYSTER D&C LÁZARO HYSTER D&C LÁZARO 2 wks D&C lázaro ablation vaginal bleed DIZZINESS SLEEP STUDY/ MSLT Reason for Visit Menorrhagia with irr egular cycle Pelvic pain Postmenopausal bleeding Iron deficiency Iron deficiency anemia Iron deficiency History of abnormal cervical Pap smear On anticoagulant therapy Postmenopausal bleeding Aortic aneurysm of unspecified site without mention of rupture Chief Complaint SLEEP STUDY/ MSLT 3MO LABS EORDER AND PAPER-2 ORDERING DRS SCREENING HEME/ONC Reason for Visit Iron deficiency Iron deficiency Iron deficiency anemia Chief Complaint 3MO LABS EORDER AND PAPER-2 ORDERING DRS SCREENING HEME/ONC Reason for Visit Iron deficiency Iron deficiency Iron deficiency anemia Chief Complaint EORDER AND PAPER-2 O RDERING DRS SCREENING HEME/ONC 3MO LABS PRIOR POST VENOFER ELBOW PAIN Reason for Visit Iron deficiency Iron deficiency anemia Iron deficiency Chief Complaint HEME/ONC 3MO LABS PRIOR POST VENOFER ELBOW PAIN ELBOW PAIN LEFT ELBOW Reason for Visit Iron deficiency Iron deficiency anemia Iron deficiency Left lateral epicondylitis Chief Complaint 3MO LABS PRIOR POST VENOFER ELBOW PAIN ELBOW PAIN LEFT ELBOW HEME/ONC Reason for Visit Iron deficiency Left lateral epicondylitis Iron deficiency Iron deficiency anemia Chief Complaint 3MO LABS PRIOR POST VENOFER ELBOW PAIN ELBOW PAIN LEFT ELBOW HEME/ONC CHILLES MULTIFOCAL PNA Reason for Visit Iron deficiency Left lateral epicondylitis Iron deficiency Iron deficiency anemia Acute hyponatremia DAVID (acute kidney injury) Diarrhea Multifocal pneumonia Chief Complaint 3MO LABS PRIOR POST VENOFER ELBOW PAIN ELBOW PAIN LEFT ELBOW HEME/ONC CHILLES MULTIFOCAL PNA MULTIFOCAL PNA MULTIFOCAL PNA Reason for Visit Iron deficiency Left lateral epicondylitis Iron deficiency Iron deficiency anemia Acute hyponatremia DAVID (acute kidney injury) Diarrhea Chief Complaint ELBOW PAIN ELBOW PAIN LEFT ELBOW HEME/ONC CHILLES MULTIFOCAL PNA MULTIFOCAL PNA MULTIFOCAL PNA SOB Reason for Visit Left lateral epicond ylitis Iron deficiency Iron deficiency anemia Acute hyponatremia DAVID (acute kidney injury) Diarrhea Chief Complaint ELBOW PAIN LEFT ELBOW HEME/ONC CHILLES MULTIFOCAL PNA MULTIFOCAL PNA MULTIFOCAL PNA SOB COUGH/CONGESTION/ABD DISCOMFORT ABD PAIN Reason for Visit Left lateral epicond ylitis Iron deficiency Iron deficiency anemia Acute hyponatremia DAVID (acute kidney injury) Diarrhea Contact with or exposure to other viral diseases URI (upper respiratory infection) Chief Complaint LEFT ELBOW HEME/ONC CHILLES MULTIFOCAL PNA MULTIFOCAL PNA MULTIFOCAL PNA SOB COUGH/CONGESTION/ABD DISCOMFORT ABD PAIN Reason for Visit Left lateral epicond ylitis Iron deficiency Iron deficiency anemia Acute hyponatremia DAVID (acute kidney injury) Diarrhea Contact with or exposure to other viral diseases URI (upper respiratory infection) Chief Complaint LEFT ELBOW HEME/ONC CHILLES MULTIFOCAL PNA MULTIFOCAL PNA MULTIFOCAL PNA SOB COUGH/CONGESTION/ABD DISCOMFORT ABD PAIN CHEST PAIN Reason for Visit Left lateral epicond ylitis Iron deficiency Iron deficiency anemia Acute hyponatremia DAVID (acute kidney injury) Diarrhea Contact with or exposure to other viral diseases URI (upper respiratory infection) Chief Complaint LEFT ELBOW HEME/ONC CHILLES MULTIFOCAL PNA MULTIFOCAL PNA MULTIFOCAL PNA SOB COUGH/CONGESTION/ABD DISCOMFORT ABD PAIN CHEST PAIN ABD PAIN NAUSEA Reason for Visit Left lateral epicond ylitis Iron deficiency Iron deficiency anemia Acute hyponatremia DAVID (acute kidney injury) Diarrhea Contact with or exposure to other viral diseases URI (upper respiratory infection) Chief Complaint HEME/ONC CHILLES MULTIFOCAL PNA MULTIFOCAL PNA MULTIFOCAL PNA SOB COUGH/CONGESTION/ABD DISCOMFORT ABD PAIN CHEST PAIN ABD PAIN NAUSEA Reason for Visit Iron deficiency Iron deficiency anemia Acute hyponatremia DAVID (acute kidney injury) Diarrhea Contact with or exposure to other viral diseases URI (upper respiratory infection) Chief Complaint HEME/ONC CHILLES MULTIFOCAL PNA MULTIFOCAL PNA MULTIFOCAL PNA SOB COUGH/CONGESTION/ABD DISCOMFORT ABD PAIN CHEST PAIN ABD PAIN NAUSEA neck pain Reason for Visit Iron deficiency Iron deficiency anemia Acute hyponatremia DAVID (acute kidney injury) Diarrhea Contact with or exposure to other viral diseases URI (upper respiratory infection) Chief Complaint HEME/ONC CHILLES MULTIFOCAL PNA MULTIFOCAL PNA MULTIFOCAL PNA SOB COUGH/CONGESTION/ABD DISCOMFORT ABD PAIN CHEST PAIN ABD PAIN NAUSEA neck pain Gastritis, unspecified, without bleeding Reason for Visit Iron deficiency Iron deficiency anemia Acute hyponatremia DAVID (acute kidney injury) Diarrhea Contact with or exposure to other viral diseases URI (upper respiratory infection) Chief Complaint CHILLES MULTIFOCAL PNA MULTIFOCAL PNA MULTIFOCAL PNA SOB COUGH/CONGESTION/ABD DISCOMFORT ABD PAIN CHEST PAIN ABD PAIN NAUSEA neck pain Gastritis, unspecified, without bleeding FATTY LIVER Reason for Visit Acute hyponatremia DAVID (acute kidney injury) Diarrhea Contact with or exposure to other viral diseases URI (upper respiratory infection) Chief Complaint 3MO LABS PRIOR POST VENOFER ELBOW PAIN ELBOW PAIN LEFT ELBOW HEME/ONC CHILLES MULTIFOCAL PNA MULTIFOCAL PNA Reason for Visit Iron deficiency Left lateral epicondylitis Iron deficiency Iron deficiency anemia Acute hyponatremia DAVID (acute kidney injury) Diarrhea Multifocal pneumonia Chief Complaint Admit Date Nausea/vomiting May 10, 2024 1 0:59am COUGH/SINUS/SORE THROAT June 06 12:24pm HEME/ONC June 15, 2024 3 :59pm 12 MO, LABS PRIOR June 23, 2024 1 1:03am Reason for Visit Admit Date Change in bowel habits May 10 10:59am Constipation May 10, 2024 1 0:59am Dry heaves May 10, 2024 1 0:59am Nausea May 10, 2024 1 0:59am Personal history of colonic polyps Decem 2023 10:59am Maxillary sinusitis June 06, 2024 12 :24pm Iron deficiency June 15, 2024 3 :59pm Iron deficiency anemia June 15 3:59pm Hx of colonic polyp June 23, 2024 1 1:03am 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, 2024 1 1:03am Iron deficiency June 23, 2024 1 1:03am Change in bowel habits July 26 8:50am Constipation July 26, 2024 8:50am Dry heaves July 26, 2024 8:50am Nausea July 26, 2024 8:50am Personal history of colonic polyps 2024 8:50am Chief Complaint Admit Date 12 MO, LABS PRIOR June 23, 2024 1 1:03am follow up October 14, 2024 9:59a m Reason for Visit Admit Date Hx of colonic polyp June 23, 2024 1 1:03am 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, 2024 1 1:03am Iron deficiency June 23, 2024 1 1:03am Change in bowel habits July 26 8:50am Constipation July 26, 2024 8:50am Dry heaves July 26, 2024 8:50am Nausea July 26, 2024 8:50am Personal history of colonic polyps u 2024 8:50am Steatosis, liver October 14, 2024 9:59a m Chief Complaint Admit Date 12 MO, LABS PRIOR June 23, 2024 1 1:03am follow up October 14, 2024 9:59a m INT LAB ORDERS October 14, 2024 11:10 am Reason for Visit Admit Date Hx of colonic polyp June 23, 2024 1 1:03am 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, 2024 1 1:03am Iron deficiency June 23, 2024 1 1:03am Change in bowel habits July 26 8:50am Constipation July 26, 2024 8:50am Dry heaves July 26, 2024 8:50am Nausea July 26, 2024 8:50am Personal history of colonic polyps 2024 8:50am Personal history of colonic polyps September 302024 9:59am Steatosis, liver October 14, 2024 9:59a m 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, 2024 9:59a m GERD (gastroesophageal reflux disease) [facility] 2024 9:59am Chief Complaint Admit Date follow up October 14, 2024 9:59a m INT LAB ORDERS October 14, 2024 11:10 am FATTY LIVER November 10, 2024 9:57 am Reason for Visit Admit Date Change in bowel habits July 26 8:50am Constipation July 26, 2024 8:50am Dry heaves July 26, 2024 8:50am Nausea July 26, 2024 8:50am Personal history of colonic polyps 2024 8:50am Personal history of colonic polyps September 302024 9:59am Steatosis, liver October 14, 2024 9:59a m 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, 2024 9:59a m GERD (gastroesophageal reflux disease) ay 2024 9:59am Additional Source Comments INFORMATION SOURCE (unrecogn ized section and content) DATE CREATED AUTHOR 12/11/2018 [facility] DATE CREATED AUTHOR AUTHOR'S ORGANIZ ATION 01/14/2019 [facility] DATE CREATED AUTHOR AUTHOR'S ORGANIZ ATION 01/13/2020 [facility] DATE CREATED AUTHOR AUTHOR'S ORGANIZ ATION 10/26/2023 [facility] ([place]) DATE CREATED AUTHOR AUTHOR'S ORGANIZ ATION 11/11/2024 [facility] DATE CREATED AUTHOR AUTHOR'S ORGANIZ ATION 11/27/2024 [facility] Source Comments (unrecognize d section and content) In the event this informatio n is protected by the Federal Confidentiality of Alcohol and Drug Abuse Patient Records regulations: The Federal rules restrict any use of the information to criminally investigate or prosecute any alcohol or drug abuse patient.[facility] the event this information is protected by the Federal Confidentiality of Alcohol and Drug Abuse Patient Records regulations: The Federal rules restrict any use of the information to criminally investigate or prosecute any alcohol or drug abuse patient.[facility] the event this information is protected by the Federal Confidentiality of Alcohol and Drug Abuse Patient Records regulations: The Federal rules restrict any use of the information to criminally investigate or prosecute any alcohol or drug abuse patient.[facility] the event this information is protected by the Federal Confidentiality of Alcohol and Drug Abuse Patient Records regulations: The Federal rules restrict any use of the information to criminally investigate or prosecute any alcohol or drug abuse patient.[facility] the event this information is protected by the Federal Confidentiality of Alcohol and Drug Abuse Patient Records regulations: The Federal rules restrict any use of the information to criminally investigate or prosecute any alcohol or drug abuse patient.[facility] Care Teams (unrecognized sec tion and content) Butt Presser Relationship Specialty Start Date End Date Shashank Tai Chi [address] [address] PCP - General Gerontology 11/30/19 Todd Tabor MD Family Practice 04/01/19 Butt Presser Relationship Specialty Start Date End Date Shashank Tai Chi [address] [facility] [address] [place] [address] PCP - General Gerontology 11/30/19 Todd Tabor MD Family Practice 04/01/19 Team Status: Active Member Role Status Dates Dr. Shashank Tai MD Family Provider Active Dr. Shashank Tai MD Primary Care Provider Active Team Status: Inactive Member Role Status Dates Dr. Shashank Tai MD Primary Care Provider, Referring Provider Active Dr. Deven David MD Attending Provider Active Team Status: Inactive Member Role Status Dates Dr. Shashank Tai MD Primary Care Provider, Referring Provider Active Penelope Rosanna REGENERATION OPERATOR, REGENERATION OPERATOR-C Attending Provider Active Team Status: Inactive Member Role Status Dates Dr. Shashank Tai MD Primary Care Provider, Referring Provider Active Dr. Lolis Monge DO Attending Provider Activ e Team Status: Active Member Role Status Dates Dr. Shashank Tai MD Primary Care Provider Active Dr. Lolis Monge DO Attending Provider, Referring Provider, Other Provider Active Team Status: Active Member Role Status Dates Dr. Shashank Tai MD Primary Care Provider, Referring Provider Active Dr. Deven David MD Attending Provider Active Team Status: Inactive Member Role Status Dates Dr. Shashank Tai MD Primary Care Provider Active Dr. Michoacano Mello MD Attending Provider, Emergency Provider Active Team Status: Inactive Member Role Status Dates Dr. Shashank Tai MD Primary Care Provider, Attending Provider Active Team Status: Inactive Member Role Status Dates Dr. Shashank Tai MD Primary Care Provider Active Penelope Marte REGENERATION OPERATOR, REGENERATION OPERATOR-C Attending Provider Active Team Status: Inactive Member Role Status Dates Dr. Shashank Tai MD Primary Care Provider Active Dr. Ran Min MD Attending Provider, Emergency Pro vider Active Team Status: Inactive Member Role Status Dates Dr. Shashank Tai MD Primary Care Provider Active Dr. Vincent Panaigua DO Attending Provider, Emergency Pr ovider Active Team Status: Active Member Role Status Dates Dr. Shashank Tai MD Primary Care Provider Active Dr. Lolis Monge DO Attending Provider, Refe rring Provider Active Team Status: Inactive Member Role Status Dates Dr. Shashank Tai MD Primary Care Provider Active Dr. Lolis Monge DO Attending Provider, Refe rring Provider Active Team Status: Inactive Member Role Status Dates Dr. Shashank Tai MD Primary Care Provider Active Dr. Michoacano Mello MD Emergency Provider Active Team Status: Inactive Member Role Status Dates Dr. Shashank Tai MD Primary Care Provider Active Dr. Wilson Castro MD Emergency Provider Active Team Status: Inactive Member Role Status Dates Dr. Shashank Tai MD Primary Care Provider Active Dr. Wilson Castro MD Attending Provider, Emergency Provider Active Team Status: Inactive Member Role Status Dates Dr. Shashank Tai MD Primary Care Provider Active Dr. Yeison Chavez MD Attending Provider, Referrin g Provider Active Team Status: Active Member Role Status Dates Dr. Shashank Tai MD Primary Care Provi khadar, Attending Provider, Referring Provider Active Team Status: Inactive Member Role Status Dates Dr. Shashank Tai MD Primary Care Provi khadar, Attending Provider, Referring Provider Active Team Status: Inactive Member Role Status Dates Dr. Shashank Tai MD Primary Care Provi khadar, Attending Provider, Referring Provider Active Dr. Deven David MD Other Provider Active Butt Presser Relationship Specialty Start Date End Date Zaire Shashank Iglesia [address] [place], [place] [id number] PCP - General Gerontology 11/30/19 Todd Tabor MD [address] [place], [place] [id number] Family Medicine 04/01/19 Team Status: Inactive Member Role Status Dates Dr. Shashank Tai MD Primary Care Provider Active Dr. Deven David MD Attending Provider, Referring Pro vider Active Team Status: Inactive Member Role Status Dates Dr. Shashank Tai MD Primary Care Provider, Referring Provider Active Dr. Deven David MD Attending Provider Active Rajni Headley REGENERATION OPERATOR, REGENERATION OPERATOR-C Active Team Status: Inactive Member Role Status Dates Dr. Shashank Tai MD Primary Care Provider Active Dr. Todd Sage MD Emergency Provider Active Team Status: Active Member Role Status Dates Dr. Shashank Tai MD Primary Care Provider Active Dr. Todd Sage MD Emergency Provider Active Stefan Loyd MD Attending Provider Active Team Status: Inactive Member Role Status Dates Dr. Shashank Tai MD Primary Care Provider, Referring Provider Active Stefan Loyd MD Attending Provider Active Team Status: Inactive Member Role Status Dates Dr. Shashank Tai MD Primary Care Provider Active Dr. Todd Sage MD Attending Provider, Emergency Pr ovider Active Team Status: Active Member Role Status Dates Dr. Shashank Tai MD Primary Care Provider Active Dr. Estefany Soriano DO Emergency Provider Active Dr. Leola Bowman MD Admit Provider, Attending Prov ider Active Team Status: Active Member Role Status Dates Dr. Shashank Tai MD Primary Care Provider Active Dr. Estefany Soriano DO Emergency Provider Active Dr. Leola Bowman MD Admit Provider, Other Provider Active Dr. Shavon Kingsley MD Attending Provider, Other Prov ider Active Team Status: Inactive Member Role Status Dates Dr. Shashank Tai MD Primary Care Provider Active Dr. Estefany Soriano DO Emergency Provider Active Dr. Leola Bowman MD Admit Provider, Other Provider Active Dr. Shavon Kingsley MD Attending Provider Active Team Status: Inactive Member Role Status Dates Dr. Shashank Tai MD Primary Care Provider Active Dr. Abrahan Herrera DO Emergency Provider Active Team Status: Inactive Member Role Status Dates Dr. Shashank Tai MD Primary Care Provider, Referring Provider Active Edgar Costello PA, PA Attending Provider Active Team Status: Inactive Member Role Status Dates Dr. Shashank Tai MD Primary Care Provider Active Dr. Abrahan Herrera DO Attending Provider, Emergency P rovider Active Team Status: Inactive Member Role Status Dates Dr. Shashank Tai MD Primary Care Provider Active Dr. Ermias Funk DO Emergency Provider Active Team Status: Inactive Member Role Status Dates Dr. Shashank Tai MD Primary Care Provider Active Dr. Ermias Funk DO Attending Provider, Emergency P rovider Active Team Status: Active Member Role Status Dates Dr. Shashank Tai MD Primary Care Provider, Attending Provider Active Team Status: Inactive Member Role Status Dates Dr. Shashank Tai MD Primary Care Provider Active Dr. Lolis Ladd MD Emergency Provider Active Team Status: Inactive Member Role Status Dates Dr. Shashank Tai MD Primary Care Provider Active Dr. Lolis Ladd MD Attending Provider, Emergency Provider Active Team Status: Active Member Role Status Dates Dr. Shashank Tai MD Primary Care Provider Active Dr. Estefany Soriano DO Emergency Provider Active Dr. Leola Bowman MD Admit Provider, Other Provider Active Dr. Shavon Kingsley MD Attending Provider Active Team Status: Active Member Role Status Dates Dr. Shashank Tai MD Primary Care Provider Active Team Status: Inactive Member Role Status Dates Dr. Shashank Tai MD Primary Care Provider Active Start: May 10, 2024 End: May 10, 2024 Dr. Shashank Tai MD Referring Provider Active Start: May 10, 2024 End: May 10, 2024 Lolis Matthew , REGENERATION OPERATOR-C Attending Provider Active Start: May 10, 2024 End: May 10, 2024 Team Status: Inactive Member Role Status Dates Dr. Shashank Tai MD Primary Care Provider Active Start: May 20, 2024 End: May 20, 2024 Dr. Shashank Tai MD Attending Provider Active Start: May 20, 2024 End: May 20, 2024 Team Status: Inactive Member Role Status Dates Dr. Shashank Tai MD Primary Care Provider Active Start: June 06, 2024 End: June 06, 2024 Dr. Shashank Tai MD Referring Provider Active Start: June 06, 2024 End: June 06, 2024 Carlo Burnett REGENERATION OPERATOR, REGENERATION OPERATOR-C Attending Provider Active S tart: June 06, 2024 End: June 06, 2024 Team Status: Active Member Role Status Dates Dr. Shashank Tai MD Primary Care Provider Active Start: June 15, 2024 Dr. Shashank Tai MD Referring Provider Active Start: June 15, 2024 Dr. Deven David MD Attending Provider Active S tart: June 15, 2024 Team Status: Inactive Member Role Status Dates Dr. Shashank Tai MD Primary Care Provider Active Start: June 23, 2024 End: June 23, 2024 Dr. Shashank Tai MD Referring Provider Active Start: June 23, 2024 End: June 23, 2024 Rajni Headley REGENERATION OPERATOR, REGENERATION OPERATOR-C Attending Provider Active Start: June 23, 2024 End: June 23, 2024 Team Status: Inactive Member Role Status Dates Dr. Shashank Tai MD Primary Care Provider Active Start: July 26, 2024 End: July 26, 2024 Dr. Shashank Tai MD Referring Provider Active Start: July 26, 2024 End: July 26, 2024 Dr. Zach Larry DO Attending Provider Active Start: July 26, 2024 End: July 26, 2024 Team Status: Active Member Role Status Dates Dr. Shashank Tai MD Primary Care Provider Active Start: July 26, 2024 Dr. Shashank Tai MD Referring Provider Active Start: July 26, 2024 Dr. Zach Larry DO Attending Provider Active Start: July 26, 2024 Dr. Zach Larry DO Other Provider Active St art: July 26, 2024 Team Status: Inactive Member Role Status Dates Dr. Shashank Tai MD Primary Care Provider Active Start: August 11, 2024 End: August 11, 2024 Dr. Shashank Tai MD Attending Provider Active Start: August 11, 2024 End: August 11, 2024 Team Status: Inactive Member Role Status Dates Dr. Shashank Tai MD Primary Care Provider Active Start: October 14, 2024 End: October 14, 2024 Dr. Shashank Tai MD Referring Provider Active Start: October 14, 2024 End: October 14, 2024 ANA Hernandez Attending Provider Active Start: October 14, 2024 End: October 14, 2024 Team Status: Inactive Member Role Status Dates Dr. Shashank Tai MD Primary Care Provider Active Start: October 14, 2024 End: October 14, 2024 ANA Hernandez Attending Provider Active Start: October 14, 2024 End: October 14, 2024 ANA Hernandez Referring Provider Active Start: October 14, 2024 End: October 14, 2024 Butt Presser Relationship Specialty Start Date End Date Zaire Shashank Parekh [address] [place], [place] [id number] PCP - General Gerontology 11/30/19 Todd Tabor MD [address] [place], [place] [id number] Family Medicine 04/01/19 Butt Presser Relationship Specialty Start Date End Date Zaire Shashank Parekh [address] [place], [place] [id number] PCP - General Gerontology 11/30/19 Todd Tabor MD [address] [place], [place] [id number] Family Medicine 04/01/19 Team Status: Inactive Member Role Status Dates Dr. Shashank Tai MD Primary Care Provider Active Start: November 10, 2024 End: November 10, 2024 ANA Hernandez Attending Provider Active Start: November 10, 2024 End: November 10, 2024 ANA Hernandez Referring Provider Active Start: November 10, 2024 End: November 10, 2024 Goals (unrecognized section and content) Goals may be documented in a n alternate sectionGoals may be documented in an alternate sectionGoals may be documented in an alternate sectionGoals may be documented in an alternate sectionGoals may be documented in an alternate sectionGoals may be documented in an alternate sectionGoals may be documented in an alternate sectionGoals may be documented in an alternate sectionGoals may be documented in an alternate sectionGoals may be documented in an alternate sectionGoals may be documented in an alternate sectionGoals may be documented in an alternate sectionGoals may be documented in an alternate sectionGoals may be documented in an alternate section No data available for this section Reason for Visit (unrecogniz ed section and content) Reason Comments Established Patient Specialty Diagnoses / Procedures Referred By Contemi t Referred To Contact Vascular Surgery / VASCULAR SURGERY Diagnoses aortic mural thrombus yearly followup Procedures EST PATIENT Self, Merrill Reilly MD [address] [id number] Referral ID Status Reason Start Date Expiration Date Visits Re quested Visits Authorized [id number] Open 12/10/2021 03/10/2022 1 1 Reason Comments Patient Question Reason Comments Appointment FOR RECORDS PERTAINING TO PATIENTS WHO ARE [...] BE BASED ON THE PRIMARY CLINICAL RECORDS. [employer] [facility]. provides no warranty or guarantee of the accuracy or completeness of information in this document.
[2024-11-29] MEDS: Lactated Ringers 1,000 ML 15 ML IV (06:18)
--- NOTE | 2024-11-29 06:22 | PRE.ANES_ITS ---
ASA Classification* ASA Classification ASA Classification: 3 Assessment & Plan Anesthesia* Anesthesia Assessment Anesthesia Assessment: Discussed sedation and/or anesthesia options, risks, benefits, and alternatives with patient/parents/legal guardian/POA. Questions invited. The patient/parents/legal guardian/POA seems to understand and agrees to proceed with anesthesia plan. Reviewed the physical assessment, medical history, allergy history and patient home medications list prior to surgery/procedure/anesthetic and documented any changes. Performed airway and anesthesia risk assessments. Anesthesia Type Anesthesia Type: MAC History Source History Obtained from:: Patient and Chart Anesthesia Focused Assessment* Temperature: 97.5 F Pulse Rate: 69 Blood Pressure: 117/72 Respiratory Rate: 18 Pulse Ox: 93 Oxygen Delivery Method: Room Air Airway Assessment Mouth opens: >3 cm Mallampati Score: IV Teeth Condition: Full (Full upper dentures are out.) and Partial (Partial lower dentures were out.) Neck Range of motion (ROM): Full ROM Labs Anesthesia Preop lab: CBC WBC 11.0 K/mm3 (4.4-11.0) 08/11/24 12:08/11/24 RBC 4.63 M/mm3 (4.2-5.4) 08/11/24 12:08/11/24 Hgb 14.6 g/dL (12.0-15.0) 08/11/24 12:08/11/24 Hct 42.2 % (37-47) 08/11/24 12:08/11/24 Plt Count 395 K/mm3 (150-450) 08/11/24 12:08/11/24 CHEMISTRY Potassium 4.2 mmol/L (3.3-5.1) 08/11/24 12:08/11/24 Sodium 134 mmol/L (133-145) 08/11/24 12:08/11/24 Magnesium 1.9 mg/dL (1.6-2.6) 05/15/23 01:05 05/15/23 Phosphorus 3.6 mg/dL (2.5-4.9) 05/15/23 01:05 05/15/23 BUN 27 mg/dL (4-19) H 08/11/24 12:25 08/11/24 Creatinine 0.69 mg/dL (0.70-1.20) L 08/11/24 12:25 Glucose 304 mg/dL (70-99) H 08/11/24 12:25 08/11/24 POC Glucose 256 mg/dL (74-106) H 07/26/24 09:12 07/26/24 TSH 1.940 uIU/mL (0.300-4.200) 08/11/24 12:25 07/31 07/27 COAG PT 18.1 SECONDS (11.7-14.9) H 04/01/24 08:00 03/04 06/25 Urine Test Negative Negative 07/09/22 06:28 07/09/22 Pre-Assessment Diagnosis/Proposed Procedure Planned Operative Procedure(s): CSCOPE Anesthesia History Anesthesia History - weigher and grader: Anesthesia History - weigher and grader Hx Hospitalization No 11/25/24 14:16 Any Problems With Anesthesia No 11/25/24 14:16 Cholinesterase deficiency No 11/25/24 14:16 You/Your Family Experience No 11/25/24 14:16 fever (hyperthermia) with Relationship Recent Exposure to Contagious No 11/29/24 06:10 Disease Does patient have nerve No 11/25/24 14:16 stimulator Patient instructed to have device shut off --Does patient have Pacemaker No 11/29/24 06:10 or ICD? When Was Last Pacemaker Check QUESTION #4 FULL TEXT: You/Your Family Experience fever (hyperthermia) with Anesthesia Last Oral Intake Last Oral intake: Last Oral Intake NPO since 18:00 11/29/24 06:10 Meds taken in AM with sips of No 11/29/24 06:10 water? Meds patient instructed to take am of surgery Any additional information?: Yes Meds taken in AM with sips of water?: No PONV PONV - weigher and grader: PONV - weigher and grader Female Yes 11/25/24 14:16 HX of Motion Sickness No 11/25/24 14:16 HX of N/V After Surgery No 11/25/24 14:16 Non-Smoker No 11/25/24 14:16 Duration of Surgery greater No 11/25/24 14:16 than 60 minutes Number of Risk Factors 1 11/25/24 14:16 PONV Score Low Risk 11/25/24 14:16 Height & Weight Height & Weight: Anesthesia: Height & Weight Height 5 ft 7 in 11/29/24 06:10 Weight: 83 kg 11/29/24 06:10 Body Mass Index (BMI) 28.6 11/29/24 06:10 Respiratory Assessment Respiratory Assessment - weigher and grader: Respiratory Tract Infection Hx - weigher and grader Hx Respiratory Tract Infection No 11/25/24 14:16 STOP Sleep Apnea STOP Sleep Apnea - weigher and grader: STOP Sleep Apnea - weigher and grader Hx Hypertension Yes: CONTROLLED WITH MED 11/25/24 14:16 Hx Sleep Apnea Yes 11/25/24 14:16 CPAP Yes: NONCOMPLIANT 11/25/24 14:16 BIPAP No 11/25/24 14:16 Do you snore loudly (louder than talking or can be heard Do you often feel tired/ fatigued/ sleepy during daytime? Has anyone observed you stop breathing during sleep? STOP Results Positive 11/25/24 14:16 QUESTION #5 FULL TEXT : Do you snore loudly (louder than talking or can be heard through closed doors)? 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 Specify any problems Hx of Preganancy in last 3 No 11/25/24 14:16 Months Nurse Filling Out Transfusion DSCHRIBER 11/25/24 14:16 & Questions: Date: 11/25/24 11/25/24 14:16 Time: 14:17 11/25/24 14:16 Patient unable to answer at this time (ie. confused, unrespo /Reproduction History /Reproductive History - weigher and grader: /Reproductive Hx- weigher and grader Hx Now No 11/25/24 14:16 Gestational Age (in weeks): EDC: Hx Hx Para Hx Section SAB No 11/25/24 14:16 Active Medications Active Medications: Current Medications Generic Name Dose Route Start Last Admin Trade Name Freq PRN Reason Stop Dose Admin Lactated Ringer's 1,000 mls @ 15 mls/hr 11/29/24 06:00 11/29/24 06:18 IV 15 mls/hr .Q48H ANDREW Administration PFSH Medical History Insulin dependent diabetes mellitus Open wound CPAP (continuous positive airway pressure) dependence Low iron High cholesterol Shortness of breath on exertion Hypertension URI (upper respiratory infection) Contact with or exposure to other viral diseases Multifocal pneumonia History of kidney stones Migraine headache Hx of colonic polyp Wears dentures Wears glasses Depression Anxiety DVT (deep venous thrombosis) Injury of head and neck Gastric reflux Smoker Chronic cough Leg cramps History of echocardiogram Contraceptive management Menorrhagia with irregular cycle 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 Leukocytosis Home Medications ?Medication ?Instructions ?Recorded ?Last Taken ?Type metformin 500 mg tablet 1,000 mg PO BID diabetes 11/28/24 History clopidogrel 75 mg tablet 75 mg PO DAILY 12/14/1911/01 History warfarin 5 mg tablet 9 mg PO DAILY DVT 12/14/19 0 11/24/24 History biotin 5,000 mcg disintegrating 10,000 mcg PO DAILY 11/28/24 History tablet doxepin 10 mg capsule 10 mg PO PRN PRN Sleep 12/1411/28/24 History bupropion HCl 150 mg tablet,12 hr 150 mg PO BID 11/28/24 History sustained-release valsartan 160 mg tablet 160 mg PO DAILY 07/05/22 History pioglitazone 30 mg tablet 30 mg PO DAILY Diabetes 05/0211/28/24 History ondansetron 4 mg disintegrating 4 mg PO Q8H PRN PRN Na usea #10 tabs 06/26/23 Unknown Rx tablet insulin glargine U-300 conc 300 40 unit subcut QHS 11/28/24 History unit/mL (3 mL) subcutaneous pen 20 uni t (Toujeo Max U-300 SoloStar) nicotine 14 mg/24 hr daily 1 patch transdermal Q24H ND N 04/21/24 Unknown History transdermal patch smoking cessation prochlorperazine maleate 10 mg 10 mg PO TID PRN nausea 04/21/24 Unknown History capsule,extended release rosuvastatin 40 mg tablet 40 mg PO QHS 04/21/24 History venlafaxine 150 mg 150 mg PO DAILY 04/21/24 History capsule,extended release 24 hr polysaccharide iron complex 150 mg 150 mg PO BID #180 caps 06/23/24 Unknown Rx iron capsule (Ferrex) sennosides 8.6 mg-docusate sodium 1 tab PO BID PRN PRN STOOL SOFTENER 07/21/24 Unknown History 50 mg tablet (Senexon-S) sucralfate 1 gram tablet 1 g PO BID 07/21/24 11/28/24 History lubiprostone 24 mcg capsule 24 mcg PO BID #60 caps 11/28/24 Rx (Amitiza) vonoprazan 20 mg tablet (Voquezna) 20 mg PO QDAY #30 t abs 10/14/24 11/28/24 Rx peg 3350-electrolytes 236 240 ml PO Q10M #4,000 mL 11/28/24 Rx gram-22.74 gram-6.74 gram-5.86 gram solution (Golytely) Allergy/AdvReac Type Severity Reaction Status Date / Time latex Allergy Mild rash Verified 11/29/24 06:08 Penicillins (PCN) Allergy Hives Verified 11/29/24 06:08 Family History Brother Diabetes Father Diabetes Mother Diabetes Uncle Diabetes Skin cancer Colon cancer Uncle Diabetes Aunt Breast cancer Surgical History Hx laparoscopic cholecystectomy Status post endometrial ablation History of esophagogastroduodenoscopy (EGD) Hx of partial nephrectomy History of embolectomy H/O tubal ligation Hx of cholecystectomy H/O lithotripsy Social History household members: family current occupational status: employed current occupation: [employer] history of recent travel: No sexually active: No Smoking Status: Current every day smoker tobacco type: cigarettes alcohol intake: current alcohol intake frequency: holidays/special occasions only substance use type: does not use what type of physical activity do you participate in: other seatbelt use: always do you feel safe at home: Yes additional social history: single Review of Systems (Anesthesia) ROS Narrative System reviewed and no additional complaints, except as documented.
--- NOTE | 2024-11-29 06:30 | COLBX_PTH ---
PATIENT: ROGERIO KIRKLAND LOC: EN U#:[id number] AGE/SX: 54/F ROOM: RE11/29/[address]: Dr. Zach Larry DO : 1970 BED: DIS: 11/29/2024 SPEC #: [id number] RECD: 11/29/24 11:16 STATUS: KEI RERandall #: [id number] VICKY: 11/29/24 06:[address]: Zach Larry DEPT: SURGICAL PATHOLOGY RECD BY: Dm Lal ENTERED: 11/29/24 14:01 SP TYPE: COLON BX LYDIA DR: Dr. Shashank Tai MD Tissues: A - Transverse colon Procedures: Surgery Specimen Level IV HEADER OPERATION: Colonoscopy with biopsy PRE-OP DIAGNOSIS: History of polyps TISSUE SUBMITTED: A- Transverse colon polyp biopsy MICROSCOPIC DIAGNOSIS A. Transverse colon, polyp, biopsy: - Tubular adenoma. MICROSCOPIC DESCRIPTION Slides are reviewed. GROSS DESCRIPTION A. Received in fixative is one container labeled with the patient's name and designated Transverse colon polyp biopsy. The specimen consists of one irregular fragment of light negro soft tissue that measures 0.7 cm. The specimen is totally submitted in one cassette. LAUREEN/mr 11/29/2024 CPT:49780
--- NOTE | 2024-11-29 06:42 | PCM.HP.STD ---
HPI - General General Date of Admission: 11/29/24 Chief Complaint: Anemia HPI Narrative ROGERIO KIRKLAND, is a 54 F who presents with the Chief Complaint: iron deficiency anemia OV 05/10/2024 53y/o female presents for consultation with complaints of N/V. 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 She reports after starting Ozempic earlier this year she developed nausea, dry heaves, early satiety, and constipation. Despite discontinuing Ozempic her symptoms have persisted. She reports a negative EGD this past summer. GES was negative and ABD US revealed liver steatosis with kPa of 7.7 (F2). She has noted some improvement in UGI symptoms with switching from pantoprazole to Voquezna. She will start Linzess 145mcg daily and we have discussed the importance of smoking cessation. She will proceed with colonoscopy and follow-up post procedure. She will require treatment to hold Plavix and Coumadin prior to procedure Will discuss liver elastography results at next office visit (kPA 7.7 = F2) - treatment with Rezdiffra has likely potential of exacerbating nausea Patient Instructions: 1. Absolutely avoid use of nicotine patch and tobacco use in combination 2. Smoking cessation encouraged 3. Continue Voquezna 20mg once daily 4. Discontinue Sennosides - docusate stool softener 5. Start Linzess 145mcg once daily 6. Ondansetron continue as needed for nausea, okay to take 1 tablet (4mg) every 8 hours 7. Colonoscopy 8. Benefiber 2tsp once a day in 8 ounces of water 9. Reduce caffeine intake 10. Increase water intake 11. Follow-up in office 3 weeks post colonoscopy 12. Will discuss liver elastography results at next office visit (kPA 7.7 = F2) EGD 07/26/2024 - Torres's negative for dysplasia - Z-line irregular, 40 cm from the incisors. Biopsied. - Small hiatal hernia. - Erythematous mucosa in the gastric body. - Normal second portion of the duodenum. COLON 07/26/2024 - (REPEAT 3 months) TA's, TI biopsy negative - Preparation of the colon was fair. - Three 7 mm polyps in the transverse colon and in the ascending colon. - Stool in the rectum, in the recto-sigmoid colon, in the sigmoid colon, in the descending colon, at the splenic flexure and in the transverse colon. - Diverticulosis in the recto-sigmoid colon, in the sigmoid colon and in the descending colon. - Congested mucosa in the terminal ileum. - No specimens collected. - she reports her insurance will not cover Linzess - stools are very small when she does go - denies any bleeding - caffeine - coffee 1-2cup a day and pepsi 5-6 cans a day - NSAIDS - naproxen 2 tabs PRN for headaches and generalized pain - 5 out of 7 days a week - EtOH - denies any in past year - very rare consumption prior to this - Smoking - she is a smoker, daily, tobacco - denies any illicit drug use - denies any marijuana use - she is taking sucralfate PRN - infrequent use - Voquezna 20mg daily - gets this from [facility] - she needs more Voquezna - she was on pantoprazole prior to Voquezna due to failing pantoprazole - she was experiencing HB which has resolved with Voquezna - she c/o weight gain: 189 today this is up from May 2024 US 08/2023 - Liver stiffness measures 7.7 kPa compatible with F2-F3 (Mild to moderate liver fibrosis) - EtOH intake is very rare - c/o right flank pain, intermittent, radiates down - sandra similar to prior GB pain - reports the pain was so bad the other night I could hardly walk went home showered, took naproxen and went to bed and was fine the next day - pain can worsen with eating on occasion - denies any abdominal pain - reports a h/o kidney stones - denies any dysuria or hematuria [facility] Medical History Insulin dependent diabetes mellitus Open wound CPAP (continuous positive airway pressure) dependence Low iron High cholesterol Shortness of breath on exertion Hypertension URI (upper respiratory infection) Contact with or exposure to other viral diseases Multifocal pneumonia History of kidney stones Migraine headache Hx of colonic polyp Wears dentures Wears glasses Depression Anxiety DVT (deep venous thrombosis) Injury of head and neck Gastric reflux Smoker Chronic cough Leg cramps History of echocardiogram Contraceptive management Menorrhagia with irregular cycle 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 Leukocytosis Home Medications ?Medication ?Instructions ?Recorded ?Last Taken ?Type metformin 500 mg tablet 1,000 mg PO BID diabetes 02/28/14 11/28/24 History clopidogrel 75 mg tablet 75 mg PO DAILY 12/14/19 11/25/24 History warfarin 5 mg tablet 9 mg PO DAILY DVT 12/14/19 11/24/24 History biotin 5,000 mcg disintegrating 10,000 mcg PO DAILY 04/03/20 11/28/24 History tablet doxepin 10 mg capsule 10 mg PO PRN PRN Sleep 12/14/20 11/28/24 History bupropion HCl 150 mg tablet,12 hr 150 mg PO BID 07/05/22 11/28/24 History sustained-release valsartan 160 mg tablet 160 mg PO DAILY 07/05/22 11/28/24 History pioglitazone 30 mg tablet 30 mg PO DAILY Diabetes 05/15/23 11/28/24 History ondansetron 4 mg disintegrating 4 mg PO Q8H PRN PRN Nausea #10 tabs 06/26/23 Unknown Rx tablet insulin glargine U-300 conc 300 40 unit subcut QHS 04/21/24 11/28/24 History unit/mL (3 mL) subcutaneous pen 20 unit (Toujeo Max U-300 SoloStar) nicotine 14 mg/24 hr daily 1 patch transdermal Q24H PRN 04/21/24 Unknown History transdermal patch smoking cessation prochlorperazine maleate 10 mg 10 mg PO TID PRN nausea 04/21/24 Unknown History capsule,extended release rosuvastatin 40 mg tablet 40 mg PO QHS 04/21/24 11/28/24 History venlafaxine 150 mg 150 mg PO DAILY 04/21/24 11/28/24 History capsule,extended release 24 hr polysaccharide iron complex 150 mg 150 mg PO BID #180 caps 06/23/24 Unknown Rx iron capsule (Ferrex) sennosides 8.6 mg-docusate sodium 1 tab PO BID PRN PRN STOOL SOFTENER 07/21/24 Unknown History 50 mg tablet (Senexon-S) sucralfate 1 gram tablet 1 g PO BID 07/21/24 11/28/24 History lubiprostone 24 mcg capsule 24 mcg PO BID #60 caps 10/14/24 11/28/24 Rx (Amitiza) vonoprazan 20 mg tablet (Voquezna) 20 mg PO QDAY #30 tabs 10/14/24 11/28/24 Rx peg 3350-electrolytes 236 240 ml PO Q10M #4,000 mL 11/26/24 11/28/24 Rx gram-22.74 gram-6.74 gram-5.86 gram solution (Golytely) Allergy/AdvReac Type Severity Reaction Status Date / Time latex Allergy Mild rash Verified 11/29/24 06:08 Penicillins (PCN) Allergy Hives Verified 11/29/24 06:08 Family History Brother Diabetes Father Diabetes Mother Diabetes Uncle Diabetes Skin cancer Colon cancer Uncle Diabetes Aunt Breast cancer Surgical History Hx laparoscopic cholecystectomy Status post endometrial ablation History of esophagogastroduodenoscopy (EGD) Hx of partial nephrectomy History of embolectomy H/O tubal ligation Hx of cholecystectomy H/O lithotripsy Social History household members: family current occupational status: employed current occupation: [employer] history of recent travel: No sexually active: No Smoking Status: Current every day smoker (Patient smoked today.) tobacco type: cigarettes alcohol intake: current alcohol intake frequency: holidays/special occasions only substance use type: does not use what type of physical activity do you participate in: other seatbelt use: always do you feel safe at home: Yes additional social history: single ROS Constitutional Constitutional: Denies fatigue, fever(s), poor appetite, weight gain or weight loss Gastrointestinal Gastrointestinal: Denies belching, bloating, change in bowel habits, change in stool character, chewing difficulty, coffee ground emesis, constipation, cramping, diarrhea, dyspepsia, dysphagia, early satiety, excessive flatus, fecal incontinence, heartburn, hematemesis, hematochezia, hemorrhoids, loose stools, melena, nausea, odynophagia, rectal bleeding, tenesmus, vomiting or weight changes Vital Signs Vital Signs Vital Signs: 11/29/24 06:10 11/29/24 06:10 11/29/24 06:29 Temperature 97.5 F L 97.5 F L Temperature Source Temporal Pulse Rate 69 69 Respiratory Rate 18 18 Respiratory Pattern Normal Blood Pressure 117/72 117/72 Blood Pressure Mean 87 Blood Pressure Source Monitor Blood Pressure Position Semi-Fowlers Blood Pressure Location Right Arm Pulse Ox 93 93 Oxygen Delivery Method Room Air Room Air Weight Weight: 182 lb 15.739 oz Body Mass Index (BMI) 28.6 Physical Exam Const alert, oriented x3, no apparent distress and healthy appearing General Appearance: cooperative GI normal to inspection, nondistended, normoactive bowel sounds, soft to palpation, non-tender and non-distended Percussion: normal to percussion Rectal Exam: deferred Assessment & Plan Assessment/Plan (1) Personal history of colonic polyps: (2) Iron deficiency: PLAN: Assessment and Plan Assessment and Plan (1) Steatosis, liver: Status: Acute (2) Personal history of colonic polyps: Status: Acute (3) GERD (gastroesophageal reflux disease): Status: Chronic (4) Torres esophagus: Status: Chronic Orders: Orders Elastography US 1st Target Les 10/14/24 K76.0 - Fatty (change of) liver, not elsewhere classified Abdomen Limited 10/14/24 K76.0 - Fatty (change of) liver, not elsewhere classified Hepatitis A AB, Total 10/14/24 K76.0 - Fatty (change of) liver, not elsewhere classified Hepatitis B Core Ab Total 10/14/24 K76.0 - Fatty (change of) liver, not elsewhere classified Hepatitis B Surface Antibody 10/14/24 K76.0 - Fatty (change of) liver, not elsewhere classified Hepatitis B Surface Antigen 10/14/24 K76.0 - Fatty (change of) liver, not elsewhere classified Hepatitis C Antibody 10/14/24 K76.0 - Fatty (change of) liver, not elsewhere classified Medications: New vonoprazan (Voquezna) 20 mg PO QDAY 30 tabs 6RF lubiprostone (Amitiza) take with breakfast and dinner 24 mcg PO BID 60 caps 1RF Plan 54-year-old female presents for follow-up post procedures. Colonoscopy and EGD were performed 07/26/2024. EGD revealed Torres's without dysplasia and we will send additional testing for tissue cypher. GERD symptoms have resolved with Voquezna 20mg daily. We have reviewed her diagnosis of Torres's and she understands Voquezna is not currently FDA approved for Torres's. We will await tissue cypher pathology before making a recommendation on switching from PCAB to PPI, as she previously failed pantoprazole. Colonoscopy revealed tubular adenomas; however, bowel prep was inadequate. She will repeat the colonoscopy with additional prep. She will start Amitiza for management of constipation. Abdominal ultrasound completed August 2023 revealed a kPa of 7.7 which is compatible with F2/F3 fibrosis. She will complete labs and repeat abdominal ultrasound with elastography at this time. Note: [employer] speech recognition photoengraving proofer software was used to create portions of this document. Sound-alike and misspelled words, as well as other photoengraving proofer errors may be contained in the documentation. Patient Instructions: Colon - 2d prep (1d Miralax and 1d GoLytely) US/Elastography Continue Voquezna 20mg daily - samples and RX sent to [facility] - discussed may need to change Tissue Cypher sent for Torres's - records release signed Start Amitiza 24mcg BID for constipation Follow-up in office post procedure
--- NOTE | 2024-11-29 07:15 | PCM.POST.ANE ---
Anesthesia: Postop Eval I Current Vital Signs Temperature: 97.1 F Pulse Rate: 61 Blood Pressure: 95/63 Respiratory Rate: 16 Pulse Ox: 98 Assessment Airway patent: Yes Spontaneous unlabored respirations: Yes nausea: No Vomiting: No Anesthesia Complication: No Fluid Hydration Crystalloid volume administer (ml): 500 Total IV fluid infused: 500 Progress Note Anesthesia document: Postop Eval 1 completed: Yes
--- NOTE | 2024-11-29 07:16 | OP.COLON_ITS ---
Patient Name: Shona Friend Procedure Date: 11/29/2024 6:47 AM Date of : 1970 Age: 54 Procedure: Colonoscopy Indications: High risk colon cancer surveillance: Personal history of colonic polyps Providers: Zach Larry DO Referring MD: Shashank Tai MD Medicines: Monitored Anesthesia Care Patient Profile: This is a 54 year old female. Refer to note in patient chart for documentation of history and physical. Last Colonoscopy: within the past year. Complications: No immediate complications. Procedure: Pre-Anesthesia Assessment: - Prior to the procedure, a History and Physical was performed, and patient medications and allergies were reviewed. The patient is competent. The risks and benefits of the procedure and the sedation options and risks were discussed with the patient. All questions were answered and informed consent was obtained. Patient identification and proposed procedure were verified by the physician in the pre-procedure area. Mental Status Examination: alert and oriented. Airway Examination: normal oropharyngeal airway and neck mobility. Respiratory Examination: clear to auscultation. CV Examination: normal. Prophylactic Antibiotics: The patient does not require prophylactic antibiotics. Prior Anticoagulants: The patient has taken no anticoagulant or antiplatelet agents except for NSAID medication. ASA Grade Assessment: II - A patient with mild systemic disease. After reviewing the risks and benefits, the patient was deemed in satisfactory condition to undergo the procedure. The anesthesia plan was to use monitored anesthesia care (MAC). Immediately prior to administration of medications, the patient was re-assessed for adequacy to receive sedatives. The heart rate, respiratory rate, oxygen saturations, blood pressure, adequacy of pulmonary ventilation, and response to care were monitored throughout the procedure. The physical status of the patient was re-assessed after the procedure. After I obtained informed consent, the scope was passed under direct vision. Throughout the procedure, the patient's blood pressure, pulse, and oxygen saturations were monitored continuously. The Colonoscope was introduced through the anus and advanced to the cecum, identified by appendiceal orifice and ileocecal valve. The colonoscopy was performed without difficulty. The patient tolerated the procedure well. The quality of the bowel preparation was adequate. The ileocecal valve, appendiceal orifice, and rectum were photographed. Scope In: 6:56:16 AM Scope Withdrawal Time 0 hours 7 minutes 17 seconds Scope Out: 7:08:16 AM Total Procedure Duration Time 0 hours 12 minutes 0 seconds Findings: The perianal and digital rectal examinations were normal. A 5 mm polyp was found in the transverse colon. The polyp was sessile. The polyp was removed with a cold biopsy forceps. Resection and retrieval were complete. Verification of patient identification for the specimen was done. Estimated blood loss was minimal. A few small-mouthed diverticula were found in the sigmoid colon. The exam was otherwise without abnormality on direct and retroflexion views. Impression: - One 5 mm polyp in the transverse colon, removed with a cold biopsy forceps. Resected and retrieved. - Diverticulosis in the sigmoid colon. - The examination was otherwise normal on direct and retroflexion views. Recommendation: - Discharge patient to home. - Resume previous diet. - Continue present medications. - Await pathology results. - Repeat colonoscopy in 3 years for surveillance. Procedure Code(s): --- Professional --- 60487, Colonoscopy, flexible; with biopsy, single or multiple CPT copyright 2021 [employer]. All rights reserved. The codes documented in this report are preliminary and upon underwater roboticist review may be revised to meet current compliance requirements. Zach Larry DO 11/29/2024 7:15:57 AM This report has been signed electronically. Number of Addenda: 0 Note Initiated On: 11/29/2024 6:47 AM
--- NOTE | 2024-11-29 07:16 | OP.CCLET_ITS ---
11/29/2024 Shashank Tai MD [address] [place] [address] Re : Colonoscopy procedure for Shona Phuc Dear Dr. Tai This procedure was performed on Friday, November 29, 2024. My impressions and recommendations are as follows: Impressions : - One 5 mm polyp in the transverse colon, removed with a cold biopsy forceps. Resected and retrieved. - Diverticulosis in the sigmoid colon. - The examination was otherwise normal on direct and retroflexion views. Recommendations : - Discharge patient to home. - Resume previous diet. - Continue present medications. - Await pathology results. - Repeat colonoscopy in 3 years for surveillance. My findings are described in the full procedure note, which is enclosed. If I can be of further assistance, please feel free to contact me at . Sincerely, Zach Larry, 11/29/2024 7:15:57 AM This report has been signed electronically.
--- NOTE | 2024-11-29 10:42 | POSTOPAN2_ITS ---
Anesthesia Postop Eval I Sum Postop Eval Completion status Anesthesia document: Postop Eval 1 completed: Yes Anesthesia Postop Eval I Summary Anesthesia Postop Eval I Summary: Anesthesia Postop Eval I: Assessment Summary Airway patent Yes 11/29/24 07:15 [email or web address] Spontaneous unlabored Yes 11/29/24 07:15 [email or web address] respirations Mental status nausea No 11/29/24 07:15 [email or web address] Vomiting No 11/29/24 07:15 [email or web address] Anesthesia Postop Eval I: Fluid Summary Crystalloid volume administer 500 11/29/24 07:15 [email or web address] (ml) Colloids volume administered ( ml) Blood Product volume administered (ml) Total IV fluid infused 500 11/29/24 07:15 [email or web address] Anesthesia Postop Eval I: Summary Notes Anesthesia Complication No 11/29/24 07:15 [email or web address] Anesthesia Complication Comment: Post-operative progress note Anesthesia: Postop Eval II Evaluation Mental status: Awake Pain Level: 0 nausea: No Vomiting: No
--- NOTE | 2024-11-29 10:42 | PCM.POSTANE2 ---
Anesthesia Postop Eval I Sum Postop Eval Completion status Anesthesia document: Postop Eval 1 completed: Yes Anesthesia Postop Eval I Summary Anesthesia Postop Eval I Summary: Anesthesia Postop Eval I: Assessment Summary Airway patent Yes 11/29/24 07:15 [email or web address] Spontaneous unlabored Yes 11/29/24 07:15 CLINICAL [email or web address] respirations Mental status nausea No 11/29/24 07:15 CLINICAL [email or web address] Vomiting No 11/29/24 07:15 CLINICAL [email or web address] Anesthesia Postop Eval I: Fluid Summary Crystalloid volume administer 500 11/29/24 07:15 [email or web address] (ml) Colloids volume administered ( ml) Blood Product volume administered (ml) Total IV fluid infused 500 11/29/24 07:15 [email or web address] Anesthesia Postop Eval I: Summary Notes Anesthesia Complication No 11/29/24 07:15 [email or web address] Anesthesia Complication Comment: Post-operative progress note Anesthesia: Postop Eval II Evaluation Mental status: Awake Pain Level: 0 nausea: No Vomiting: No
[2024-11-29 12:07] LABS: Bedside Glucose 227 mg/dL (74-106)
[2024-11-30 10:20] LABS: INR Fingerstick 1.1; Prothrombin Time Fingerstick 13.3 SEC (11.7-14.9)
== END 2024-11-29 08:00 | disposition home or self-care (01) ==
LOC: EN 05:42 → AC 05:43
PROVIDERS: PCP Family Medicine Geriatric Medicine; Referring Provider Family Medicine Geriatric Medicine; Visit Provider Internal Medicine Gastroenterology
PROC: 0DJD8ZZ Inspection of Lower Intestinal Tract, Via Natural or Artificial Opening Endoscopic (ICD-10-PCS; CPT 45378; principal; 2024-11-29 06:25)
DX: Z12.11 Encounter for screening for malignant neoplasm of colon (principal); Z79.4 Long term (current) use of insulin; E11.9 Type 2 diabetes mellitus without complications; D12.3 Benign neoplasm of transverse colon; F17.200 Nicotine dependence, unspecified, uncomplicated; K22.70 Barrett's esophagus without dysplasia; I10 Essential (primary) hypertension; K76.0 Fatty (change of) liver, not elsewhere classified; K57.30 Diverticulosis of large intestine without perforation or abscess without bleeding; E78.00 Pure hypercholesterolemia, unspecified; Z79.01 Long term (current) use of anticoagulants; Z79.02 Long term (current) use of antithrombotics/antiplatelets; Z79.84 Long term (current) use of oral hypoglycemic drugs; Z79.899 Other long term (current) drug therapy; Z86.0100 Personal history of colon polyps, unspecified; Z86.718 Personal history of other venous thrombosis and embolism
CPT/HCPCS: 45380; 36416; 82962; 85610; 88305

== ENCOUNTER 2024-12-07 21:08 | Emergency (ER) | payer BC, SELFPAY ==
[2024-12-07 21:09] VITALS: BP 140/82; PULSE 115; RESP 19; TEMP 36.8; O2SAT 97; BMI 29.2
--- NOTE | 2024-12-07 22:04 | EX.ED.DYSGE1 ---
HPI History of Present Illness Chief Complaint: Hyperglycemia [facility] Medical History Insulin dependent diabetes mellitus Open wound CPAP (continuous positive airway pressure) dependence Low iron High cholesterol Shortness of breath on exertion Hypertension URI (upper respiratory infection) Contact with or exposure to other viral diseases Multifocal pneumonia History of kidney stones Migraine headache Hx of colonic polyp Wears dentures Wears glasses Depression Anxiety DVT (deep venous thrombosis) Injury of head and neck Gastric reflux Smoker Chronic cough Leg cramps History of echocardiogram Contraceptive management Menorrhagia with irregular cycle 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 Leukocytosis Home Medications ?Medication ?Instructions ?Recorded ?Last Taken ?Type metformin 500 mg tablet 1,000 mg PO BID diabetes 02/28/14 11/28/24 History clopidogrel 75 mg tablet 75 mg PO DAILY 12/14/19 11/25/24 History warfarin 5 mg tablet 9 mg PO DAILY DVT 12/14/19 11/24/24 History biotin 5,000 mcg disintegrating 10,000 mcg PO DAILY 04/03/20 11/28/24 History tablet doxepin 10 mg capsule 10 mg PO PRN PRN Sleep 12/14/20 11/28/24 History bupropion HCl 150 mg tablet,12 hr 150 mg PO BID 07/05/22 11/28/24 History sustained-release valsartan 160 mg tablet 160 mg PO DAILY 07/05/22 11/28/24 History pioglitazone 30 mg tablet 30 mg PO DAILY Diabetes 05/15/23 11/28/24 History ondansetron 4 mg disintegrating 4 mg PO Q8H PRN PRN Nausea #10 tabs 06/26/23 Unknown Rx tablet insulin glargine U-300 conc 300 40 unit subcut QHS 04/21/24 11/28/24 History unit/mL (3 mL) subcutaneous pen 20 unit (Toujeo Max U-300 SoloStar) nicotine 14 mg/24 hr daily 1 patch transdermal Q24H PRN 04/21/24 Unknown History transdermal patch smoking cessation prochlorperazine maleate 10 mg 10 mg PO TID PRN nausea 04/21/24 Unknown History capsule,extended release rosuvastatin 40 mg tablet 40 mg PO QHS 04/21/24 11/28/24 History venlafaxine 150 mg 150 mg PO DAILY 04/21/24 11/28/24 History capsule,extended release 24 hr polysaccharide iron complex 150 mg 150 mg PO BID #180 caps 06/23/24 Unknown Rx iron capsule (Ferrex) sennosides 8.6 mg-docusate sodium 1 tab PO BID PRN PRN STOOL SOFTENER 07/21/24 Unknown History 50 mg tablet (Senexon-S) sucralfate 1 gram tablet 1 g PO BID 07/21/24 11/28/24 History lubiprostone 24 mcg capsule 24 mcg PO BID #60 caps 10/14/24 11/28/24 Rx (Amitiza) vonoprazan 20 mg tablet (Voquezna) 20 mg PO QDAY #30 tabs 10/14/24 11/28/24 Rx peg 3350-electrolytes 236 240 ml PO Q10M #4,000 mL 11/26/24 11/28/24 Rx gram-22.74 gram-6.74 gram-5.86 gram solution (Golytely) Allergy/AdvReac Type Severity Reaction Status Date / Time latex Allergy Mild rash Verified 12/07/24 21:09 Penicillins (PCN) Allergy Hives Verified 12/07/24 21:09 Family History Brother Diabetes Father Diabetes Mother Diabetes Uncle Diabetes Skin cancer Colon cancer Uncle Diabetes Aunt Breast cancer Surgical History Hx laparoscopic cholecystectomy Status post endometrial ablation History of esophagogastroduodenoscopy (EGD) Hx of partial nephrectomy History of embolectomy H/O tubal ligation Hx of cholecystectomy H/O lithotripsy Social History household members: family current occupational status: employed current occupation: [employer] history of recent travel: No sexually active: No Smoking Status: Current every day smoker tobacco type: cigarettes alcohol intake: current alcohol intake frequency: holidays/special occasions only substance use type: does not use what type of physical activity do you participate in: other seatbelt use: always do you feel safe at home: Yes additional social history: single EXAM Physical Exam Const Vital Signs: 12/07/24 21:09 12/07/24 22:53 12/07/24 23:08 Temperature 98.3 F Temperature Source Oral Pulse Rate 115 H 96 Respiratory Rate 19 H 23 H Respiratory Effort Normal Respiratory Pattern Normal Blood Pressure 140/82 H 135/79 H Blood Pressure Mean 101 97 Pulse Ox 97 96 Oxygen Delivery Method Room Air Room Air [facility] [place] Medical decision making narrative: HISTORY OF PRESENT ILLNESS: Chief complaint: Elevated blood sugar 54-year-old female history of type 2 diabetes, metformin, and insulin Esophagus, GERD, DVT on warfarin presents with concern for elevated blood sugars. She notes I have increasing blood sugars. She states she ate a salad ranch dressing but otherwise has been eating a stable diet and been taking prescribed antihyperglycemic's. Denies fever does note a mild cough. Denies abdominal pain or urinary symptoms such as frequency urgency. Notes slight nausea. REVIEW OF SYSTEMS: Pertinent positives: Hyperglycemia Pertinent negatives: As per HPI PHYSICAL EXAM: Nursing triage notes reviewed, Vital signs reviewed Constitutional: please see [facility] HENT: MMM Eyes: Pupils equal round and reactive to light, Extraocular muscles intact Neck: No stridor, no JVD, full neck ROM Lungs: Clear to auscultation, No wheezing or rales. No increased work of breathing, no conversational dyspnea, no accessory muscle use, no nasal flaring. No respiratory distress noted Heart: Regular rate and rhythm, No murmurs, No rubs and No gallops, 2+ distal pulses (radial, femoral, posterior tibial) in all extremities Abdomen: Soft, there is no tenderness, rigidity, rebound or guarding, no obvious peritoneal signs, no palpable pulsatile abdominal masses, no auscultated abdominal bruit : No CVAT Extremities: No edema Neuro: No new focal neurological deficits, cranial nerves II through XII intact, 5/5 strength in all present extremities. Intact sensation to light touch in all present extremities, 2+ reflexes bilateral patella tendons. Skin: No rash or lesions noted MEDICAL DECISION MAKING: Chief Complaint: please see [facility] External records reviewed: Reviewed prior ED visit from January 2024 the patient was evaluated for hyperglycemia. Factors affecting care: Type 2 diabetes Social determinants of health: none History obtained from others: none Consults: none [facility] Narrative: The patient was initially tachycardic with a heart rate of 115 otherwise afebrile and nontoxic-appearing. Saturating 90% on room air. Exam I considered the following differential diagnosis: Hyperglycemia, DKA, noncompliance, I obtained a broad lab and imaging to further determine if the patient was suffering from a life-threatening etiology. Initially resuscitated patient with IV fluids ALL IMAGES (IF OBTAINED) HAVE BEEN PERSONALLY REVIEWED AND INTERPRETED BY MYSELF. CBC with leukocytosis suggestive of systemic inflammation, no anemia or thrombocytopenia VBG without evidence of metabolic acidosis, bicarb greater than 15 not consistent with DKA BMP with pseudohyponatremia, no other significant electrolyte abnormalities, there is no anion gap to suggest DKA no acute kidney injury Beta hydroxybutyrate slightly elevated at 0.4 with a lab reference range of 0-0.3 this consistent with poor glucose utilization in the setting of hyperglycemia Blood sugar after IV fluids and insulin improved to 317. I have personally reviewed the patient's chest x-ray. Chest x-ray is unremarkable for pulmonary edema, pneumothorax, pneumonia or focal cardiopulmonary abnormality. Urinalysis negative for acute UTI No sign of DKA or HHS. Patient suffering from hyperglycemia likely exacerbation of underlying diabetes. No clear infectious etiologies could be ascertained to explain her symptoms. Patient was given instructions to eat a low carbohydrate diet. Drink plenty of fluids and continue home insulin and metformin follow-up with primary care physician for further outpatient diabetic medication titration. The patient and/or family, caregivers express understanding. The patient and/or family, caregivers agrees with the plan. Shared decision making: I will have a discussion with the patient and or visitors regarding risk/benefits of further testing or admission. They will be made aware of of the risk/benefits inherent in this decision they will be given the opportunity to voice understanding. Total critical care time today provided was at least 0 minutes. This excludes separately billable procedures. Critical care time (if documented) is secondary to the patient having high probability of clinically significant/life threatening deterioration in the patient's condition which required my urgent intervention. Impression: 1. Hyperglycemia 2. History of type 2 diabetes Dispo: Discharge home This note was generated with [employer]iza dictation software. It may contain incorrect words, spelling, and punctuation that were not noted in review of the chart prior to signing. Lab Data Labs: Laboratory Results - last 24 hr 12/07/24 12/07/24 12/07/24 22:19 22:35 22:38 WBC 11.8 H RBC 4.83 Hgb 14.9 Hct 43.4 MCV 89.9 MCH 30.8 MCHC 34.3 RDW Std Deviation 41.8 RDW Coeff of Edvin 12.6 Plt Count 363 MPV 10.6 Immature Gran % (Auto) 0.600 Neut % (Auto) 54.2 Lymph % (Auto) 36.4 [place] % (Auto) 6.8 Eos % (Auto) 1.0 Baso % (Auto) 1.0 Absolute Neuts (auto) 6.4 Absolute Lymphs (auto) 4.28 Nucleated RBC % 0 Differential Comment SCANNED Sodium 131 L Potassium 3.9 Chloride 95 L Carbon Dioxide 22.9 Anion Gap 12 BUN 17 Creatinine 0.83 Estim Creat Clear Calc 86.71 Est GFR (MDRD) Non-Af 84 BUN/Creatinine Ratio 20.5 H Glucose 416 H Calcium 9.8 b-Hydroxybutyric mmol/L 0.4 H Urine Color Yellow Urine Clarity Clear Urine pH 6.0 Ur Specific [place] 1.015 Urine Protein 30 H Urine Glucose (UA) 1000 H Urine Ketones 15 H Urine Occult Blood 10 H Urine Nitrite Negative Urine Bilirubin Negative Urine Urobilinogen Normal Ur Leukocyte Esterase Negative Urine RBC 0 SEEN Urine WBC 10-25 SEEN Ur Squamous Epith Cells 5-10 SEEN Urine Bacteria RARE Urine Mucus 0 SEEN POC Glucose 468 H* 12/07/24 12/07/24 23:11 23:54 WBC RBC Hgb Hct MCV MCH MCHC RDW Std Deviation RDW Coeff of Edvin Plt Count MPV Immature Gran % (Auto) Neut % (Auto) Lymph % (Auto) [place] % (Auto) Eos % (Auto) Baso % (Auto) Absolute Neuts (auto) Absolute Lymphs (auto) Nucleated RBC % Differential Comment Sodium Potassium Chloride Carbon Dioxide Anion Gap BUN Creatinine Estim Creat Clear Calc Est GFR (MDRD) Non-Af BUN/Creatinine Ratio Glucose Calcium b-Hydroxybutyric mmol/L Urine Color Urine Clarity Urine pH Ur Specific [place] Urine Protein Urine Glucose (UA) Urine Ketones Urine Occult Blood Urine Nitrite Urine Bilirubin Urine Urobilinogen Ur Leukocyte Esterase Urine RBC Urine WBC Ur Squamous Epith Cells Urine Bacteria Urine Mucus POC Glucose 362 H 317 H ABG Data ABG results: ABG 12/07/24 22:41 Specimen Type JOJO Sample Site Not entered VBG pH 7.40 VBG pO2 19 L* VBG HCO3 26 VBG Total CO2 27 VBG O2 Sat (Calc) 30 L VBG Base Excess 1 POC Mix VBG pCO2 Pt Tmp 42.0 O2 Delivery Device Room Air Crit Call To/Read Back Yes Blood Gas Notified Whom Javier Blood Gas Notified Time 22:42:55 Radiography Diagnostic Testing: Clinical Impression(s) from Imaging Studies Chest X-Ray 12/07/24 22:46 IMPRESSION: No evidence of acute cardiopulmonary disease. Reading Location: [facility] Discharge Plan Triage Chief Complaint: Hyperglycemia ED Provider: Abrahan Herrera Dx/Rx/DC Orders Clinical Impression: Acute hyperglycemia Instructions: ED Diabetic Hyperglycemia Prescriptions: No Action prochlorperazine maleate 10 mg capsule, extended release 10 mg PO TID PRN (Reason: nausea) venlafaxine 150 mg capsule,extended release 24hr 150 mg PO DAILY insulin glargine U-300 conc [Toujeo Max U-300 SoloStar] 300 unit/mL (3 mL) insulin pen 40 unit subcut QHS nicotine 14 mg/24 hr patch 24 hour 1 patch transdermal Q24H PRN (Reason: smoking cessation) rosuvastatin 40 mg tablet 40 mg PO QHS polysaccharide iron complex [Ferrex 150] 150 mg iron capsule 150 mg PO BID Qty: 180 1RF Voquezna 20 mg tablet 20 mg PO QDAY Qty: 30 6RF lubiprostone [Amitiza] 24 mcg capsule 24 mcg PO BID Qty: 60 1RF Rx Instructions: take with breakfast and dinner metformin 500 MG tablet 1,000 mg PO BID Patient Comments: clopidogrel 75 MG tablet 75 mg PO DAILY warfarin 5 MG tablet 9 mg PO DAILY biotin 5,000 MCG tablet,disintegrating 10,000 mcg PO DAILY doxepin 10 mg capsule 10 mg PO PRN PRN (Reason: Sleep) bupropion HCl 150 mg tablet sustained-release 12 hr 150 mg PO BID Patient Comments: TAKE 1 TABLET ORALLY TWICE PER DAY FOR 90 DAYS valsartan 160 mg tablet 160 mg PO DAILY Patient Comments: TAKE 1 TABLET BY MOUTH EVERY DAY ondansetron 4 mg tablet,disintegrating 4 mg PO Q8H PRN PRN (Reason: Nausea) Qty: 10 0RF pioglitazone 30 mg tablet 30 mg PO DAILY Patient Comments: TAKE 1 TABLET ORALLY ONCE PER DAY FOR 30 DAYS sennosides-docusate sodium [Senexon-S] 8.6-50 mg tablet 1 tab PO BID PRN PRN (Reason: STOOL SOFTENER) sucralfate 1 gram tablet 1 g PO BID peg 3350-electrolytes [Golytely] 236-22.74-6.74 -5.86 gram recon soln 240 ml PO Q10M Qty: 4000 0RF Rx Instructions: until fecal effluent is clear Primary Care Provider: Shashank Tai Chi Referrals: Shashank Tai Chi, MD [Primary Care Provider] - Activity Restrictions/Additional Instructions: Thank you for trusting us with your care today! Your labs are reassuring. No sign of significant metabolic issues in the setting of high blood sugar. Your blood sugars improved from high 400s to essentially 300. I encourage you to eat a low carbohydrate diet. Please not eat carbs until you follow-up with your primary doctor. Please drink plenty of fluids. Please continue your insulin, pioglitazone and metformin at home. Please take Tylenol (2 pills, 650 mg), ibuprofen (2 pills, 400 mg) every 6 hours as needed for pain and fever control. Please return to the emergency department if your symptoms change or worsen. Please follow with your primary care physician for further outpatient evaluation and management. Print Language: Senegalese Disposition Disposition: Home, Self Care
[2024-12-07 22:45] LABS: SITE Not entered; Time Given 22:42:55; VBG BASE EXCESS 1 mmol/L (-1.0-3.5); VBG PO2 19 mmHg (25-40); VBG SO2 30 % (50-70); VBG TCO2 27 mmol/L (23-33)
--- NOTE | 2024-12-07 22:46 | RAD_ITS ---
PROCEDURE: CHEST 1 VIEW (PORTABLE) 12/07/2024 REASON FOR EXAM: COUGH TECHNIQUE: Frontal view of the chest. COMPARISON: 05/31/2023 FINDINGS: Lungs/Pleura: Clear. No appreciable consolidation, pneumothorax, or sizable pleural effusion. Heart/Mediastinum: Within normal limits. Bones/Soft tissues: Unremarkable. Cholecystectomy surgical clips. RAD/Chest 1 View (Portable) IMPRESSION: No evidence of acute cardiopulmonary disease. Reading Location: [id number]
[2024-12-07 22:47] LABS: Mucous, Urine 0 SEEN /hpf (<or=2+); Red Blood Cells-Urine 0 SEEN /hpf (0-5)
[2024-12-07] MEDS: Insulin Lispro 100 UNIT/ML VIAL (ADMELOG) IV (22:48)
[2024-12-07] MEDS: 0.9% Normal Saline (1000mL) 1,000 ML 999 ML IV (22:48)
[2024-12-07 22:49] LABS: Hematocrit 43.4 % (37-47); Hemoglobin 14.9 g/dL (12.0-15.0); Immature Granulocytes Count 0.070 X10^3/uL (0.0-0.0); Mean Corp Hgb Conc 34.3 g/dL (32-36); Mean Corpuscular Volume 89.9 fL (81-99); Mean Platelet Vol. 10.6 fl (6.2-12.0); NRBC Flagged by Analyzer 0 % (0-5); POSITIVE MORPHOLOGY YES; Platelet Count 363 K/mm3 (150-450); RBC Distribution Width CV 12.6 % (11.6-14.6); RBC Distribution Width SD 41.8 fl (35.1-43.9); Red Blood Count 4.83 M/mm3 (4.2-5.4); White Blood Count 11.8 K/mm3 (4.4-11.0)
[2024-12-07 22:50] LABS: Color, Urine Yellow (Yellow); Glucose, Dipstick 1000 mg/dl (Normal); Ketone-Dipstick 15 mg/dl (Negative); Leukocyte Esterase-Dipstick Negative /ul (Negative); Nitrite-Dipstick Negative (Negative); Occult Blood-Urine 10 /ul (Negative); Protein-Dipstick 30 mg/dl (Negative); Specific Gravity, Urine 1.015 (1.002-1.030); Urine Bilirubin Dipstick Negative (Negative)
[2024-12-07 23:08] VITALS: BP 135/79; PULSE 96; RESP 23; O2SAT 96
[2024-12-07 23:12] LABS: Squamous Epithelial Cells - UA 5-10 SEEN /hpf (5-10)
[2024-12-07 23:13] LABS: Differential Indicated SCAN CRITERIA MET
[2024-12-07 23:18] LABS: Anion Gap 12 (5-15); BETA-HYDROXYBUTYRATE 0.4 mmol/L (0.0-0.3); BUN 17 mg/dL (4-19); BUN/Creat Ratio 20.5 RATIO (10-20); Calcium,Total 9.8 mg/dL (7.6-11.0); Carbon Dioxide 22.9 mmol/L (21.0-32.0); Chloride 95 mmol/L (98-108); Estimated Creatinine Clearance 86.71 ml/min (50-250); Glucose 416 mg/dL (70-99); Potassium 3.9 mmol/L (3.3-5.1)
[2024-12-07 23:35] LABS: Differential Comment SCANNED
[2024-12-08 00:25] VITALS: BP 134/66; PULSE 77; RESP 20; TEMP 36.8; O2SAT 97
== END 2024-12-08 00:56 | disposition home or self-care (01) ==
PROVIDERS: Emergency Provider Emergency Medicine; PCP Family Medicine Geriatric Medicine; Visit Provider Emergency Medicine
DX: E11.65 Type 2 diabetes mellitus with hyperglycemia (principal); Z79.4 Long term (current) use of insulin; I10 Essential (primary) hypertension; F17.210 Nicotine dependence, cigarettes, uncomplicated; Z79.01 Long term (current) use of anticoagulants; Z79.02 Long term (current) use of antithrombotics/antiplatelets; Z79.84 Long term (current) use of oral hypoglycemic drugs; Z79.899 Other long term (current) drug therapy; Z86.718 Personal history of other venous thrombosis and embolism
CPT/HCPCS: 71045; 80048; 81001; 82010; 82803; 82962; 85025; 96360; 96361; 99282; A4216

== ENCOUNTER → 2024-12-09 | Outpatient (CLI) | payer BC, SELFPAY ==
[2024-12-09 09:41] LABS: Hematocrit 44.0 % (37-47); Hemoglobin 15.3 g/dL (12.0-15.0); Immature Granulocytes Count 0.050 X10^3/uL (0.0-0.0); Mean Corp Hgb Conc 34.8 g/dL (32-36); Mean Corpuscular Volume 89.4 fL (81-99); Mean Platelet Vol. 10.9 fl (6.2-12.0); NRBC Flagged by Analyzer 0 % (0-5); Platelet Count 375 K/mm3 (150-450); RBC Distribution Width CV 12.8 % (11.6-14.6); RBC Distribution Width SD 42.1 fl (35.1-43.9); Red Blood Count 4.92 M/mm3 (4.2-5.4); White Blood Count 11.3 K/mm3 (4.4-11.0)
[2024-12-09 10:14] LABS: AST(SGOT) 19 U/L (<=31); Alanine Aminotransfer ALT/SGPT 10 U/L (<=34); Albumin, Serum 4.1 g/dL (3.5-5.0); Alkaline Phosphatase 118 U/L (35-104); Anion Gap 14 (5-15); BUN 15 mg/dL (4-19); BUN/Creat Ratio 22.8 RATIO (10-20); CORTISOL AM 1.41 ug/dL (6.02-18.40); Calcium,Total 9.9 mg/dL (7.6-11.0); Carbon Dioxide 22.1 mmol/L (21.0-32.0); Chloride 101 mmol/L (98-108); Globulin 2.7 g/dL (2.2-4.2); Glucose 177 mg/dL (70-99); Potassium 4.1 mmol/L (3.3-5.1)
== END | disposition home or self-care (01) ==
LOC: LAB 07:58
PROVIDERS: Nurse Practitioner Acute Care; PCP Family Medicine Geriatric Medicine; Referring Provider Family Medicine Geriatric Medicine; Visit Provider Family Medicine Geriatric Medicine
DX: I10 Essential (primary) hypertension (principal); E11.65 Type 2 diabetes mellitus with hyperglycemia; E24.9 Cushing's syndrome, unspecified
CPT/HCPCS: 36415; 80053; 82533; 84443; 85025

== ENCOUNTER → 2025-02-25 | Outpatient (CLI) | payer BC, SELFPAY ==
[2025-02-25 12:21] LABS: Hematocrit 41.4 % (37-47); Hemoglobin 14.3 g/dL (12.0-15.0); Immature Granulocytes Count 0.050 X10^3/uL (0.0-0.0); Mean Corp Hgb Conc 34.5 g/dL (32-36); Mean Corpuscular Volume 93.2 fL (81-99); Mean Platelet Vol. 10.5 fl (6.2-12.0); NRBC Flagged by Analyzer 0 % (0-5); Platelet Count 384 K/mm3 (150-450); RBC Distribution Width CV 14.5 % (11.6-14.6); RBC Distribution Width SD 50.0 fl (35.1-43.9); Red Blood Count 4.44 M/mm3 (4.2-5.4); White Blood Count 15.0 K/mm3 (4.4-11.0)
[2025-02-25 13:26] LABS: AST(SGOT) 34 U/L (<=31); Alanine Aminotransfer ALT/SGPT 16 U/L (<=34); Albumin, Serum 3.9 g/dL (3.5-5.0); Alkaline Phosphatase 92 U/L (35-104); Anion Gap 10 (5-15); BUN 20 mg/dL (4-19); BUN/Creat Ratio 30.4 RATIO (10-20); Calcium,Total 9.3 mg/dL (7.6-11.0); Carbon Dioxide 24.0 mmol/L (21.0-32.0); Chloride 107 mmol/L (98-108); Globulin 2.3 g/dL (2.2-4.2); Glucose 145 mg/dL (70-99); Potassium 4.0 mmol/L (3.3-5.1)
[2025-02-25 19:49] LABS: Xtra Tube Kwok EXTRA TUBE
== END | disposition home or self-care (01) ==
LOC: POLAB3 11:49
PROVIDERS: PCP Family Medicine Geriatric Medicine; Visit Provider Family Medicine Geriatric Medicine
DX: I10 Essential (primary) hypertension (principal); E03.9 Hypothyroidism, unspecified
CPT/HCPCS: 36415; 80053; 84443; 85025

== ENCOUNTER → 2025-06-01 | Outpatient (CLI) | payer BC, SELFPAY ==
[2025-06-01 13:40] LABS: Hematocrit 42.3 % (37-47); Hemoglobin 14.4 g/dL (12.0-15.0); Immature Granulocytes Count 0.020 X10^3/uL (0.0-0.0); Mean Corp Hgb Conc 34.0 g/dL (32-36); Mean Corpuscular Volume 91.8 fL (81-99); Mean Platelet Vol. 10.3 fl (6.2-12.0); NRBC Flagged by Analyzer 0 % (0-5); Platelet Count 383 K/mm3 (150-450); RBC Distribution Width CV 13.6 % (11.6-14.6); RBC Distribution Width SD 46.2 fl (35.1-43.9); Red Blood Count 4.61 M/mm3 (4.2-5.4); White Blood Count 7.9 K/mm3 (4.4-11.0)
[2025-06-01 14:40] LABS: AST(SGOT) 28 U/L (<=31); Alanine Aminotransfer ALT/SGPT 14 U/L (<=34); Albumin, Serum 4.0 g/dL (3.5-5.0); Alkaline Phosphatase 80 U/L (35-104); Anion Gap 9 (7-18); BUN 17 mg/dL (4-19); BUN/Creat Ratio 26.8 RATIO (10-20); Calcium,Total 9.5 mg/dL (7.6-11.0); Carbon Dioxide 25.1 mmol/L (20.0-29.0); Chloride 108 mmol/L (96-106); Globulin 2.6 g/dL (2.2-4.2); Glucose 129 mg/dL (70-99); Potassium 4.2 mmol/L (3.5-5.1)
[2025-06-01 21:10] LABS: Xtra Tube Kwok EXTRA TUBE
== END | disposition home or self-care (01) ==
LOC: POLAB3 13:09
PROVIDERS: PCP Family Medicine Geriatric Medicine; Visit Provider Family Medicine Geriatric Medicine
DX: I10 Essential (primary) hypertension (principal)
CPT/HCPCS: 36415; 80053; 85025